=== PATIENT | male | born 1955 | race Caucasian/White ===

== ENCOUNTER 2023-01-16 09:20 | Outpatient (OUT) | payer MEDICARE, SELFPAY ==
--- NOTE | 2023-01-16 09:22 | ECG_ITS ---
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
[2023-01-16 10:12] LABS: Basophils Percent Auto 0.4 % (0.2-2.0); Eosinophils Absolute Auto 0.1 10^3/uL (0.0-0.7); Hematocrit 43.7 % (42.0-54.0); Hemoglobin 15.6 g/dL (14.0-18.0); Immature Granulocytes Abs Auto 0.02 10^3/uL (0.00-0.03); Immature Granulocytes Pct Auto 0.4 % (0.0-0.5); Lymphocytes Absolute Auto 1.1 10^3/uL (1.2-3.8); Mean Corpuscular HGB Conc 35.7 g/dL (29.9-35.2); Mean Corpuscular Hemoglobin 30.4 pg (25.9-34.0); Mean Corpuscular Volume 85.2 fL (80.0-94.0); Mean Platelet Volume 9.4 fL (9.5-13.5); Monocytes Absolute Auto 0.3 10^3/uL (0.3-0.8); Neutrophils Percent Auto 66.2 % (43.0-75.0); Platelet Count 204 10^3/uL (150-450); Red Blood Count 5.13 10^6/uL (4.70-6.10); Red Cell Distribution Width 12.9 % (11.0-15.0); White Blood Count 4.6 10^3/uL (4.0-11.0)
[2023-01-16 10:29] LABS: INR 0.99; Partial Thromboplastin Time 29.1 sec (22.3-36.2); Prothrombin Time 10.5 sec (9.0-11.6)
[2023-01-16 14:35] LABS: Calcium 9.3 mg/dL (8.5-10.1); Phosphorus 2.9 mg/dL (2.6-4.7); Thyroid Stimulating Hormone 0.958 uIU/mL (0.358-3.740)
== END 2023-01-16 09:21 | disposition home or self-care (01) ==
LOC: PST 09:20
PROVIDERS: Otolaryngology; PCP Family Medicine
DX: Z01.812 Encounter for preprocedural laboratory examination (principal); Z01.810 Encounter for preprocedural cardiovascular examination; E07.9 Disorder of thyroid, unspecified
CPT/HCPCS: 36415; 82310; 83735; 84100; 84443; 85025; 85610; 85730; 93005

== ENCOUNTER 2023-03-09 12:54 | Outpatient (OUT) | payer MEDICARE, SELFPAY | END 2023-03-09 12:55 | disposition home or self-care (01) | LOC: PST 12:54 | PROVIDERS: PCP Family Medicine; Visit Provider Otolaryngology | DX: Z01.818 Encounter for other preprocedural examination (principal); E07.9 Disorder of thyroid, unspecified ==

== ENCOUNTER 2023-03-10 08:39 | Day surgery (SDC) | payer MEDICARE, SELFPAY ==
[2023-01-16 09:26] VITALS: BP 127/76; PULSE 70; RESP 18; TEMP 36.4; O2SAT 96; BMI 30.1
[2023-03-10] VITALS (17 sets, daily range): BP systolic 102–156; BP diastolic 59–86; PULSE 75–108; RESP 1–24; TEMP 36.1–37.4; O2SAT 91–97; BMI 29.9
--- NOTE | 2023-03-10 | OP_ITS ---
OPERATION DATE: ??03/10/2023 PRIMARY CARE PHYSICIAN:? Abhishek Thomas M.D. SURGEON:? Raven Rand M.D. ELECTROCARDIOGRAM TECHNICIAN:? MANUELITO Rosenbaum PREOPERATIVE DIAGNOSIS:? Bilateral thyroid masses. POSTOPERATIVE DIAGNOSIS:? Bilateral thyroid masses. PROCEDURE:? Total thyroidectomy with recurrent laryngeal nerve monitoring.? ANESTHESIA:? General endotracheal. COMPLICATIONS:? None. FINDINGS:? A hard 5 cm left superior pole mass with extensive fibrosis to surrounding strap muscles and rubbery 3.5 cm right inferior pole mass. INDICATIONS:? This 67-year-old man presented with bilateral thyroid masses, including a large TR5 mass on the left hand side.? Fine needle aspiration of the masses on each side revealed atypia of undetermined significance.? Because of the very high risk of carcinoma on the left side, the patient was brought to the OR for thyroidectomy rather than further testing. PROCEDURE:? Patient identified in the holding area and taken back to the OR where he was placed in the supine position.? After induction of general endotracheal anesthesia, using a recurrent laryngeal nerve monitoring endotracheal tube, a 12 cm incision was mapped out two finger breadths above the sternal notch, following a natural skin crease.? A larger incision than usual was necessary due to the large size and somewhat lateral nature of his left sided mass.? Dissection was carried out through the platysma with electrocautery and subplatysmal flaps were raised superiorly to the thyroid notch and inferiorly to the clavicle.? A thyroid retractor was then put in position and the strap muscles were incised in the midline.? The strap muscles were then elevated off of the thyroid anteriorly, and attention turned to the thyroid isthmus.? The thyroid isthmus was transected in the midline with blunt dissection and harmonic scalpel, with multiple small veins extending inferiorly from the isthmus, being hemoclipped and transected with the harmonic scalpel.? Attention was first turned to the larger, left thyroid mass.? The gland was retracted medially and dissected off of the trachea with a harmonic scalpel.? Blunt dissection of the strap muscles was performed to initiate a subcapsular dissection of the gland.? However, because of the fibrosis of the muscles to the superior portion of the gland, as well as the large size of the patient?s left superior lobe, decision was made to transect the strap muscles in order to gain better lateral exposure.? This was and the superior and inferior strap muscles were tagged with a 3-0 Vicryl suture for lateral re-approximation.? Dissection continued superiorly and inferiorly, and eventually, with the fibrosis of the strap muscles to the gland, a typical subcapsular dissection of the superior lobe was clearly not possible.? Therefore, the inferior pole of the thyroid gland was dissected free of the underlying tissues, with positive identification of the recurrent laryngeal nerve.? A subcapsular dissection of the inferior pole of the gland was then continued superiorly with the recurrent laryngeal nerve under continuous observation.? The parathyroid glands were also identified and dissected free from the gland.? The parathyroid glands were not involved in the fibrotic superior portion of the gland.? Once the inferior and mid portion of the thyroid was freed, blunt dissection continued superiorly and the strap muscles were excised from the portion of the gland where they were both fibrotic.? The superior thyroid vessels were also identified and hemoclipped and transected.? Dissection was carried out anteriorly until the entirety of the land was freed from the trachea and it was removed. Both dissection and stimulation of the recurrent laryngeal nerve showed that the nerve was both anatomically and electrically intact.? The left thyroid was then sent for pathologic analysis.? Dissection was then performed to remove the right thyroid.? The right thyroid was grasped and more typical thyroidectomy dissection was performed, with subcapsular dissection of the superior pole of the thyroid being performed with transection and clipping of the superior thyroid vessels.? The superior parathyroid gland was identified and dissected free of the thyroid, and dissection continued inferiorly in a subcapsular fashion, with the inferior pole of the thyroid being freed and fibrovascular attachments being transected with the harmonic scalpel.? The gland was rotated medially.? The recurrent laryngeal nerve was identified in the tracheoesophageal groove.? The inferior parathyroid gland was identified and bluntly dissected away from the thyroid and preserved.? Then, with the recurrent laryngeal nerve under continuous observation, the gland was dissected free of the trachea.? Both dissection and stimulation of the right recurrent laryngeal nerve also revealed the nerve to be anatomically and electrically intact.? The wound was then copiously irrigated with normal saline containing Clindamycin, and the wound was explored to look for any bleeding vessels and none were found.? The left strap muscles were then re-approximated with the two 3-0 Vicryl sutures that had been previously placed.? A #7 round Murray-Sutton drain was then placed through a stab incision in the sternal notch.? The strap muscles were re-approximated in the midline, and the skin was closed with two deep interrupted 4-0 Vicryl sutures layers and a running 5-0 Monocryl subcuticular stitch.? A pressure dressing was then placed, and the patient was awakened and taken to the recovery room in good condition. YUNIOR
[2023-03-10] MEDS: LACTATED RINGER'S SOLUTION 1,000 ML 50 ML IV ×2 (09:01→14:00)
[2023-03-10] MEDS: AMPICILLIN SODIUM/SULBACTAM NA 3 GM in 0.9 % SODIUM CHLORIDE 100 ML IV (10:46)
[2023-03-10] MEDS: LIDOCAINE HCL 1%-EPINEPHRINE 1:100,000 10 ML MDV INJ (11:40)
[2023-03-10] MEDS: CLINDAMYCIN PHOSPHATE/D5W 600 MG/50 ML PIGGYBACK IRR (14:25)
[2023-03-10] MEDS: BACITRACIN OINTMENT 28.4 GM TUBE 1 APPLIC TOPICAL (15:12)
--- NOTE | 2023-03-10 15:52 | PC.NURSE ---
Upon arrival to PACU.. simple face mask was applied at 10 liters of oxygen. LMA was then removed and patient was also suctioned. Had gurgling in his throat.
[2023-03-10 18:35] LABS: Calcium 8.4 mg/dL (8.5-10.1)
[2023-03-10] MEDS: FAMOTIDINE 20 MG TABLET PO (20:02)
[2023-03-11 04:16] VITALS: BP 101/63; PULSE 94; RESP 16; TEMP 36.9; O2SAT 97
[2023-03-11 05:06] LABS: Calcium 8.2 mg/dL (8.5-10.1)
[2023-03-11 07:37] VITALS: O2SAT 97
[2023-03-11] MEDS: ASCORBIC ACID 500 MG TABLET 1000 MG PO (08:08)
[2023-03-11] MEDS: CHOLECALCIFEROL (VITAMIN D3) 25 MCG/1,000 UNITS TABLET PO (08:08)
[2023-03-11] MEDS: ZINC GLUCONATE 50 MG TABLET PO (08:09)
[2023-03-11] MEDS: MULTIVITAMIN TABLET 1 TAB PO (08:09)
[2023-03-11] MEDS: FAMOTIDINE 20 MG TABLET PO (08:09)
== END 2023-03-11 08:40 | disposition home or self-care (01) ==
LOC: SURGOUT 08:40 → MS 16:47
PROVIDERS: PCP Family Medicine; Visit Provider Otolaryngology
PROC: (CPT 60240; principal; 2023-03-10 09:40)
DX: C73 Malignant neoplasm of thyroid gland (principal); Z86.010 Personal history of colon polyps
CPT/HCPCS: 60240; 36415; 82310; 88307; 94761; 95865; 95940; J2704

== ENCOUNTER 2023-03-19 08:45 | Emergency (ER) | payer MEDICARE, SELFPAY ==
[2023-03-19] VITALS (57 sets, daily range): BP systolic 110–136; BP diastolic 56–81; PULSE 76–98; RESP 14–29; TEMP 36.8; O2SAT 93; BMI 29.6
--- NOTE | 2023-03-19 09:01 | US_ITS ---
The [address] [address] Patient Name: ELIZABETH RM MRN: [id number] date: 1955 Sex: M Assigned Patient Location: ER Current Patient Location: ER Accession/Order Number: [id number] Exam Date: 03/19/2023 09:15 Report Date: 03/19/2023 09:54 At the request of: KOJO FREITAS Procedure: US venous doppler LE RT EXAMINATION: US venous doppler LE RT HISTORY: right LE pain and swelling post-op COMPARISON: No relevant comparison available. FINDINGS: REGION: Right lower extremity THROMBI: Occlusive thrombus within posterior tibial vein, peroneal vein, popliteal vein and femoral vein. Nonocclusive thrombus within common femoral vein. COMPRESSIBILITY: Noncompressible segments. FLOW: Absent flow. OTHER: Patent superficial great saphenous vein. US/US venous doppler LE RT IMPRESSION: 1. Marked deep vein thrombus throughout right lower extremity. Patient is in the hospital and provider is being notified. Electronically authenticated by: KATARINA JENKINS Date: 03/19/2023 09:54
[2023-03-19 09:20] LABS: Basophils Percent Auto 0.4 % (0.2-2.0); Eosinophils Absolute Auto 0.1 10^3/uL (0.0-0.7); Eosinophils Percent Auto 1.3 % (0.9-7.0); Hematocrit 43.8 % (42.0-54.0); Hemoglobin 15.2 g/dL (14.0-18.0); Immature Granulocytes Pct Auto 1.1 % (0.0-0.5); Lymphocytes Absolute Auto 1.3 10^3/uL (1.2-3.8); Lymphocytes Percent Auto 13.6 % (20.5-60.0); Mean Corpuscular HGB Conc 34.7 g/dL (29.9-35.2); Mean Corpuscular Hemoglobin 30.4 pg (25.9-34.0); Mean Corpuscular Volume 87.6 fL (80.0-94.0); Mean Platelet Volume 9.2 fL (9.5-13.5); Monocytes Absolute Auto 0.7 10^3/uL (0.3-0.8); Monocytes Percent Auto 7.7 % (1.7-12.0); Neutrophils Absolute Auto 7.2 10^3/uL (1.4-6.5); Neutrophils Percent Auto 75.9 % (43.0-75.0); Platelet Count 193 10^3/uL (150-450); Red Cell Distribution Width 12.2 % (11.0-15.0); White Blood Count 9.5 10^3/uL (4.0-11.0)
[2023-03-19 09:32] LABS: Anion Gap 15.3; BUN Creatinine Ratio 22.6; Calcium 8.9 mg/dL (8.5-10.1); Carbon Dioxide 25.4 mmol/L (21.0-32.0); Chloride 102 mmol/L (98-107); Estimated GFR (African America >60 (>=60); Estimated GFR (Non-African Ame >60 (>=60); Glucose 178 mg/dL (74-106); Potassium 3.7 mmol/L (3.5-5.1); Sodium 139 mmol/L (136-145)
--- NOTE | 2023-03-19 09:40 | ED_ITS ---
HPI - General Adult General Chief complaint: Extremity Problem, Nontraumatic Stated complaint: PAIN IN R LEG/CALF-PT WANTS CHECKED FOR BLOOD CLOT Time Seen by Provider: 03/19/23 08:52 Source: patient Mode of arrival: walk-in Limitations: no limitations History of Present Illness HPI narrative: patient presents with right lower leg pain and swelling that began 3-4 days ago. He had thyroid surgery at [facility] last week and was discharged home. No prior history of DVT but he has had superficial thrombophlebitis in the past. The pain has slowly increased along with the swelling - he localizes the pain to the outside of the right lower leg posteriorly. No recent injury. He denies any chest pain or shortness of breath. Related Data Home Medications Medication Instructions Recorded Confirmed Testosterone Supplement 01/16/23 ascorbic acid (vitamin C) 1,000 mg 1 g PO DAILY 01/16/23 03/10/23 capsule cholecalciferol (vitamin D3) 25 1,000 unit PO DAILY 01/16/23 03/10/23 mcg (1,000 unit) capsule magnesium 250 mg tablet 250 mg PO DAILY 01/16/23 03/10/23 multivitamin (Daily Multi-Vitamin 1 tab PO DAILY 01/16/23 03/10/23 tablet) zinc 50 mg capsule 50 mg PO DAILY 01/16/23 03/10/23 Allergies Allergy/AdvReac Type Severity Reaction Status Date / Time shellfish derived Allergy throat Verified 03/19/23 08:57 swelling clindamycin AdvReac Mild Rash Verified 03/19/23 08:57 [facility] Medical History (Updated 03/19/23 @ 10:48 by Kojo Freitas) Surgical History (Updated 01/16/23 @ 09:30 by Aurea Mathis NP) Family History (Updated 01/16/23 @ 09:30 by Aurea Mathis NP) Other CHF (congestive heart failure) Family history of colon cancer Family history of diabetes mellitus Social History (Updated 01/16/23 @ 09:26 by Aurea Mathis NP) Within the past year, how often did you have a drink containing alcohol: never Score interpretation: A score less than 4 is consistent with normal alcohol consumption. Smoking status: Former smoker Non-prescribed substance use: denies use Previous occupational history: Retired Highest level of school completed/degree received: high school graduate Exam Narrative Exam Narrative: Nurses notes and vital signs reviewed and patient is not hypoxic. afebrile General: Well-appearing and in no apparent distress. Skin: Warm, dry, no pallor noted. No rash. Head: Normocephalic, atraumatic. Neck: Supple, non-tender. Eye: Pupils are equal, round and EOMI. No scleral icterus. Cardiovascular: Regular Rate and Rhythm without murmur, gallop or rub. Respiratory: No accessory muscle use or respiratory distress. Lungs are clear to auscultation, no wheezing, rales or rhonchi Musculoskeletal: normal ROM, RIGHT calf and popliteal tenderness, 1+ pitting lower extremity edema/swelling GI: Abdomen is soft, non-distended. Normal bowel sounds. No tenderness to palpation. No rebound, guarding, or rigidity noted. Neurological: A&O x4. No cranial nerve dysfunction observed. No truncal ataxia. Moves all extremities. Sensation intact. Psychiatric: Cooperative and interactive. Normal mood and affect. Constitutional Vital Signs, click to edit/add: Last Vital Signs Temp 98.2 F 03/19/23 08:51 Pulse 91 H 03/19/23 10:05 Resp 22 03/19/23 10:05 BP 126/74 03/19/23 10:05 Pulse Ox 93 L 03/19/23 08:51 O2 Del Method Room Air 03/19/23 08:51 Course Vital Signs Vital signs: Vital Signs Temperature 98.2 F 03/19/23 08:51 Pulse Rate 93 H 03/19/23 08:51 Respiratory Rate 18 03/19/23 08:51 Blood Pressure 136/80 03/19/23 08:51 Pulse Oximetry 93 L 03/19/23 08:51 Oxygen Delivery Method Room Air 03/19/23 08:51 Temperature 98.2 F 03/19/23 08:51 Pulse Rate 91 H 03/19/23 10:05 Respiratory Rate 22 03/19/23 10:05 Blood Pressure 126/74 03/19/23 10:05 Pulse Oximetry 93 L 03/19/23 08:51 Oxygen Delivery Method Room Air 03/19/23 08:51 Medical Decision Making MDM Narrative Medical decision making narrative: patient found to have an extensive deep venous thrombosis of the right lower extremity on venous ultrasound that extends to the right common femoral vein. I discussed the opportunity to be transferred to [facility] to see the vascular surgeon and her to have a procedure done in which they could flush out the clot in order to lower risk of post-thrombotic disease. We also discussed the need for anticoagulation. Peripheral IV was established and the patient was given heparin bolus and placed on heparin drip. he was placed on chassis engineer and arrangements were made in anticipation of transfer for procedure. Vascular surgeon at [facility] = Dr Gonzales. I spoke with him about the patient's case and he accepted the patient's transfer to their facility for admission and evaluation, possible procedure for the DVT. Patient is agreeable to transfer Lab Data Lab results reviewed: Yes I reviewed the patient's lab results Labs: Lab Results 03/19/23 Range/Units 09:10 WBC 9.5 (4.0-11.0) 10^3/uL RBC 5.00 (4.70-6.10) 10^6/uL Hgb 15.2 (14.0-18.0) g/dL Hct 43.8 (42.0-54.0) % MCV 87.6 (80.0-94.0) fL MCH 30.4 (25.9-34.0) pg MCHC 34.7 (29.9-35.2) g/dL RDW 12.2 (11.0-15.0) % Plt Count 193 (150-450) 10^3/uL MPV 9.2 L (9.5-13.5) fL Neut % (Auto) 75.9 H (43.0-75.0) % Lymph % (Auto) 13.6 L (20.5-60.0) % Kent % (Auto) 7.7 (1.7-12.0) % Eos % (Auto) 1.3 (0.9-7.0) % Baso % (Auto) 0.4 (0.2-2.0) % Neut # (Auto) 7.2 H (1.4-6.5) 10^3/uL Lymph # (Auto) 1.3 (1.2-3.8) 10^3/uL Kent # (Auto) 0.7 (0.3-0.8) 10^3/uL Eos # (Auto) 0.1 (0.0-0.7) 10^3/uL Baso # (Auto) 0.0 (0.0-0.1) 10^3/uL Abs Immat Gran (auto) 0.10 H (0.00-0.03) 10^3/uL Imm/Tot Granulo (auto) 1.1 H (0.0-0.5) % PT 10.6 (9.0-11.6) sec INR 1.00 APTT 30.1 (22.3-36.2) sec Sodium 139 (136-145) mmol/L Potassium 3.7 (3.5-5.1) mmol/L Chloride 102 (98-107) mmol/L Carbon Dioxide 25.4 (21.0-32.0) mmol/L Anion Gap 15.3 BUN 24.0 H (7.0-18.0) mg/dL Creatinine 1.06 (0.70-1.30) mg/dL Est GFR ( Amer) >60 (>=60) Est GFR (Non-Af Amer) >60 (>=60) BUN/Creatinine Ratio 22.6 Glucose 178 H (74-106) mg/dL Calcium 8.9 (8.5-10.1) mg/dL Imaging Data us right LE: Radiologist's impression: Patient Name: ELIZABETH RM MRN: [id number] date: 1955 Sex: M Assigned Patient Location: Current Patient Location: Accession/Order Number: [id number] Exam Date: 03/19/2023 09:15 Report Date: 03/19/2023 09:54 At the request of: KOJO FREITAS Procedure: US venous doppler LE RT EXAMINATION: US venous doppler LE RT HISTORY: right LE pain and swelling post-op COMPARISON: No relevant comparison available. FINDINGS: REGION: Right lower extremity THROMBI: Occlusive thrombus within posterior tibial vein, peroneal vein, popliteal vein and femoral vein. Nonocclusive thrombus within common femoral vein. COMPRESSIBILITY: Noncompressible segments. FLOW: Absent flow. OTHER: Patent superficial great saphenous vein. IMPRESSION: 1. Marked deep vein thrombus throughout right lower extremity. Patient is in the hospital and provider is being notified. Electronically authenticated by: KATARINA JENKINS Date: 03/19/2023 09:54 Discharge Plan Discharge Chief Complaint: Extremity Problem, Nontraumatic Clinical Impression: Deep vein thrombosis of lower extremity Patient Disposition: [facility] Time of Disposition Decision: 09:47 Discharge Location: [facility] Prescriptions / Home Meds: No Action multivitamin [Daily Multi-Vitamin] Tablet 1 tab PO DAILY Hold Instructions: Doctor's Order ascorbic acid (vitamin C) 1,000 mg capsule 1 g PO DAILY Hold Instructions: Doctor's Order cholecalciferol (vitamin D3) 25 mcg (1,000 unit) capsule 1,000 unit PO DAILY Hold Instructions: Doctor's Order magnesium 250 mg tablet 250 mg PO DAILY Hold Instructions: Doctor's Order zinc 50 mg capsule 50 mg PO DAILY Hold Instructions: Doctor's Order Testosterone Supplement Hold Instructions: Doctor's Order Referrals: Abhishek Thomas MD [Primary Care Provider] - 1 week
[2023-03-19 09:41] LABS: Partial Thromboplastin Time 30.1 sec (22.3-36.2); Prothrombin Time 10.6 sec (9.0-11.6)
[2023-03-19] MEDS: HEPARIN SODIUM (PORCINE) 5,000 UNIT/ML VIAL 5600 UNIT IV (09:57)
[2023-03-19] MEDS: HEPARIN SODIUM,PORCINE/D5W 25,000 UNIT/500 ML IV.SOLN 25.2 UNIT IV (09:59)
== END 2023-03-19 16:00 | disposition short-term general hospital (02) ==
PROVIDERS: Emergency Provider Emergency Medicine; PCP Family Medicine
DX: I82.442 Acute embolism and thrombosis of left tibial vein (principal); I82.452 Acute embolism and thrombosis of left peroneal vein; I82.432 Acute embolism and thrombosis of left popliteal vein; I82.412 Acute embolism and thrombosis of left femoral vein; Z79.899 Other long term (current) drug therapy; Z87.891 Personal history of nicotine dependence
CPT/HCPCS: 36415; 80048; 85025; 85610; 85730; 93971; 96374; 99285

== ENCOUNTER 2023-04-30 08:56 | Outpatient (OUT) | payer MEDICARE, SELFPAY ==
--- NOTE | 2023-04-30 09:12 | XR_ITS ---
[address] [address] Patient Name: ELIZABETH RM MRN: [id number] date: 1955 Sex: M Assigned Patient Location: [facility] Current Patient Location: Accession/Order Number: [id number] Exam Date: 04/30/2023 09:08 Report Date: 05/01/2023 07:28 At the request of: GAEL JOSHUA Procedure: XR soft tissue neck EXAMINATION: XR soft tissue neck HISTORY: Hypoxia R09.02 COMPARISON: No relevant comparison available. FINDINGS: EPIGLOTTIS: Normal RYEPIGLOTTIC FOLDS: Normal SUBGLOTTIC AIRWAY: Normal ADENOID TONSILS: Normal PALATINE TONSILS: Normal CERVICAL SPINE: Mild degenerative changes XR/XR soft tissue neck IMPRESSION: Patent airway Electronically authenticated by: DIAAN HERNANDEZ Date: 05/01/2023 07:28
== END 2023-04-30 08:57 | disposition home or self-care (01) ==
LOC: RAD 08:57
PROVIDERS: PCP Family Medicine; Visit Provider Family Medicine
DX: R09.02 Hypoxemia (principal)
CPT/HCPCS: 70360

== ENCOUNTER 2023-05-06 18:44 | Outpatient (OUT) | payer MEDICARE, SELFPAY ==
--- NOTE | 2023-05-06 | US_ITS ---
The [address] [address] Patient Name: ELIZABETH RM MRN: [id number] date: 1955 Sex: M Assigned Patient Location: US Current Patient Location: Accession/Order Number: [id number] Exam Date: 05/06/2023 19:07 Report Date: 05/07/2023 07:38 At the request of: GAEL JOSHUA Procedure: US soft tissue head and neck EXAMINATION: US soft tissue head and neck HISTORY: HYPOXIA R09.02 ; coughing since thyroidectomy February 2023 COMPARISON: Ultrasound thyroid 10/30/2022 FINDINGS: RIGHT LOBE: Small area of hypoechoic slightly vascular tissue within the right thyroid bed 8 x 6 x 5 mm. Lobe size: Prior thyroidectomy. LEFT LOBE: No appreciable residual tissue within the thyroid bed. Lobe size: Prior thyroidectomy. ISTHMUS: No appreciable thyroid tissue. Thickness: Prior thyroidectomy. US/US soft tissue head and neck IMPRESSION: 1. Small amount of soft tissue within right thyroid bed resembling residual thyroid tissue. Follow-up in 6 months is recommended to document stability. Electronically authenticated by: KATARINA JENKINS Date: 05/07/2023 07:38
== END 2023-05-06 18:45 | disposition home or self-care (01) ==
PROVIDERS: PCP Family Medicine; Visit Provider Family Medicine
DX: R09.02 Hypoxemia (principal)
CPT/HCPCS: 76536

== ENCOUNTER 2023-07-03 14:20 | Outpatient (OUT) | payer MEDICARE, SELFPAY ==
--- NOTE | 2023-07-03 14:53 | PM.PRESUREVA ---
History of Present Illness History of Present Illness Chief complaint: True Vocal Cord Mass Narrative: Patient resents for preadmission testing. Please see HPI from Dr. Rand dated 07/01/2023. Review of Systems ROS Narrative Please see ROS from Dr. Rand dated 07/01/2023. 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) DVT (deep venous thrombosis) (03/26/23) ?I82.409 - Acute embolism and thrombosis of unspecified deep veins of unspecified lower extremity (ICD-10) Polyp of colon ?K63.5 - Polyp of colon (ICD-10) COVID-19 ?U07.1 - COVID-19 (ICD-10) GERD (gastroesophageal reflux disease) ?K21.9 - Gastro-esophageal reflux disease without esophagitis (ICD-10) Thyroid mass ?E07.9 - Disorder of thyroid, unspecified (ICD-10) Surgical History (Updated 07/03/23 @ 14:42 by Aurea Mathis NP) H/O thyroidectomy (03/10/23) ?E89.0 - Postprocedural hypothyroidism (ICD-10) History of colonoscopy ?Z98.890 - Other specified postprocedural states (ICD-10) Family History (Updated 01/16/23 @ 09:30 by Aurea Mathis NP) Other CHF (congestive heart failure) Family history of colon cancer Family history of diabetes mellitus Social History (Updated 01/16/23 @ 09:26 by Aurea Mathis NP) Within the past year, how often did you have a drink containing alcohol: never Score interpretation: A score less than 4 is consistent with normal alcohol consumption. Smoking status: Former smoker Non-prescribed substance use: denies use Previous occupational history: Retired Highest level of school completed/degree received: high school graduate Meds Home Medications and Allergies Home Medications Medication Instructions Recorded Confirmed Type Testosterone Supplement 01/16/23 History ascorbic acid (vitamin C) 1,000 mg 1 g PO DAILY 01/16/23 07/03/23 History capsule cholecalciferol (vitamin D3) 25 1,000 unit PO DAILY 01/16/23 07/03/23 History mcg (1,000 unit) capsule magnesium 250 mg tablet 250 mg PO DAILY 01/16/23 07/03/23 History multivitamin (Daily Multi-Vitamin 1 tab PO DAILY 01/16/23 07/03/23 History tablet) zinc 50 mg capsule 15 mg PO DAILY 01/16/23 07/03/23 History apixaban 5 mg tablet (Eliquis) 5 mg PO BID 07/03/23 07/03/23 History calcium 600 mg capsule mg PO 07/03/23 History levothyroxine 125 mcg tablet 125 mcg PO DAILY 07/03/23 07/03/23 History liothyronine 25 mcg tablet 25 mcg PO DAILY 07/03/23 07/03/23 History Allergies Allergy/AdvReac Type Severity Reaction Status Date / Time shellfish derived Allergy throat Verified 03/19/23 08:57 swelling clindamycin AdvReac Mild Rash Verified 03/19/23 08:57 Exam Narrative Exam Narrative: Constitutional: Awake, alert, comfortable, well-appearing, nontoxic, interactive, vital signs as charted Head: Normocephalic, atraumatic Neck: Supple, normal appearance, normal range of motion, no meningeal signs, no lymphadenopathy Respiratory: No respiratory distress, breath sounds clear Cardiovascular: Regular rate and rhythm, strong and regular heart tones Musculoskeletal: Normal gait, no swelling or edema Skin: No rashes or induration, no lesions, only visible skin inspected Neuro: No neurological deficits, normal sensation Psychiatric: Oriented ?3, normal affect Assessment and Plan Assessment and Plan (1) Vocal cord mass: Plan Microlaryngoscopy with removal of true vocal cord mass scheduled with Dr. Rand 07/07/2023.
[2023-07-03 14:57] LABS: Basophils Percent Auto 0.6 % (0.2-2.0); Eosinophils Absolute Auto 0.1 10^3/uL (0.0-0.7); Hematocrit 45.3 % (42.0-54.0); Hemoglobin 15.7 g/dL (14.0-18.0); Immature Granulocytes Abs Auto 0.01 10^3/uL (0.00-0.03); Immature Granulocytes Pct Auto 0.2 % (0.0-0.5); Lymphocytes Absolute Auto 1.2 10^3/uL (1.2-3.8); Lymphocytes Percent Auto 22.7 % (20.5-60.0); Mean Corpuscular HGB Conc 34.7 g/dL (29.9-35.2); Mean Corpuscular Hemoglobin 29.6 pg (25.9-34.0); Mean Corpuscular Volume 85.5 fL (80.0-94.0); Mean Platelet Volume 9.4 fL (9.5-13.5); Monocytes Absolute Auto 0.5 10^3/uL (0.3-0.8); Monocytes Percent Auto 10.1 % (1.7-12.0); Neutrophils Absolute Auto 3.5 10^3/uL (1.4-6.5); Neutrophils Percent Auto 64.4 % (43.0-75.0); Platelet Count 186 10^3/uL (150-450); Red Cell Distribution Width 13.4 % (11.0-15.0); White Blood Count 5.4 10^3/uL (4.0-11.0)
[2023-07-03 15:05] LABS: Anion Gap 14.4; BUN Creatinine Ratio 14.1; Carbon Dioxide 25.7 mmol/L (21.0-32.0); Chloride 103 mmol/L (98-107); Estimated GFR (African America >60 (>=60); Estimated GFR (Non-African Ame 50 (>=60); Glucose 108 mg/dL (74-106); Potassium 4.1 mmol/L (3.5-5.1); Sodium 139 mmol/L (136-145)
[2023-07-03 16:17] LABS: INR 1.01; Prothrombin Time 10.7 sec (9.0-11.6)
== END 2023-07-03 14:21 | disposition home or self-care (01) ==
PROVIDERS: PCP Family Medicine; Visit Provider Otolaryngology
DX: Z01.812 Encounter for preprocedural laboratory examination (principal); J38.3 Other diseases of vocal cords
CPT/HCPCS: 80048; 85025; 85610; 85730; G0463

== ENCOUNTER 2023-07-07 09:07 | Day surgery (SDC) | payer MEDICARE, SELFPAY ==
[2023-07-03 14:51] VITALS: BP 123/73; PULSE 72; RESP 16; TEMP 36.3; O2SAT 98; BMI 30.3
[2023-07-07] VITALS (12 sets, daily range): BP systolic 123–153; BP diastolic 67–84; PULSE 65–97; RESP 5–25; TEMP 36.4; O2SAT 95–100; BMI 30.1
--- NOTE | 2023-07-07 | OP_ITS ---
OPERATION DATE: 07/07/2023 PRIMARY CARE PHYSICIAN: Abhishek hTomas M.D. SURGEON: Raven Rand M.D. PREOPERATIVE DIAGNOSIS: Laryngeal mass. POSTOPERATIVE DIAGNOSIS: Laryngeal mass. PROCEDURE: Microlaryngoscopy and removal of laryngeal mass. ANESTHESIA: General endotracheal. COMPLICATIONS: None. FINDINGS: A 1 cm pedunculated mass attached at the left vocalis process. 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 The mass did not improve with conservative medical therapy, and the patient was brought to the OR for excision. PROCEDURE: Patient identified in the holding area and taken back to the OR where he was placed in a supine position. After induction of general endotracheal anesthesia, the table was turned, the shoulder roll placed and a tooth guard put in position. An anterior commissure laryngoscope was passed along the right side of the tongue and the endolarynx wax exposed. The tube was suspended and under direct endoscopic guidance, a cup forcep was used to remove the mass at its stalk, where it was attached to the vocalis process. There was self-limited bleeding and the patient was awakened and taken to the recovery room in good condition. YUNIOR
[2023-07-07] MEDS: LACTATED RINGER'S SOLUTION 1,000 ML 50 ML IV (09:51)
[2023-07-07] MEDS: RACEPINEPHRINE HCL 11.25 MG, SODIUM CHLORIDE FOR INHALATION 3 ML IH (12:20)
--- NOTE | 2023-07-07 12:30 | RESP.RT ---
Inspiratory stridor post surgery
== END 2023-07-07 13:06 | disposition home or self-care (01) ==
PROVIDERS: PCP Family Medicine; Visit Provider Otolaryngology
PROC: (CPT 31541; principal; 2023-07-07 10:20)
DX: J38.1 Polyp of vocal cord and larynx (principal); J38.3 Other diseases of vocal cords; Z79.01 Long term (current) use of anticoagulants; Z86.718 Personal history of other venous thrombosis and embolism; Z86.010 Personal history of colon polyps; Z86.16 Personal history of COVID-19; K21.9 Gastro-esophageal reflux disease without esophagitis; E89.0 Postprocedural hypothyroidism; Z87.891 Personal history of nicotine dependence
CPT/HCPCS: 31541; 36415; 88305; 94640; J2704

== ENCOUNTER 2023-07-08 16:21 | Outpatient (OUT) | payer MEDICARE, SELFPAY ==
[2023-07-08 16:48] LABS: Anion Gap 12.6; BUN Creatinine Ratio 18.7; Calcium 8.8 mg/dL (8.5-10.1); Carbon Dioxide 30.2 mmol/L (21.0-32.0); Chloride 107 mmol/L (98-107); Estimated GFR (African America >60 (>=60); Estimated GFR (Non-African Ame 59 (>=60); Glucose 135 mg/dL (74-106); Potassium 3.8 mmol/L (3.5-5.1); Sodium 146 mmol/L (136-145)
== END 2023-07-08 16:22 | disposition home or self-care (01) ==
LOC: LAB 16:22
PROVIDERS: PCP Family Medicine; Visit Provider Family Medicine
DX: N28.9 Disorder of kidney and ureter, unspecified (principal)
CPT/HCPCS: 36415; 80048

== ENCOUNTER 2023-09-08 06:41 | Outpatient (OUT) | payer MEDICARE, SELFPAY ==
--- OUTSIDE RECORDS SUMMARY | 2023-09-07 09:05 | XMS_ITS | CCD ---
Author Name Unknown Address [address] [place] [address] Organization [facility] Care Team Providers Care Irish Moss Operator Name Role Phone Gael Thomas Primary Care Physician [phone] JOS[address] ., DR MAYO Admitting Unavailable HOY ., DR MAYO Attending Unavailable HOY ., DR MAYO Primary Care Unavailable HOY ., DR MAYO Consulting Unavailable HOY ., DR MAYO Admitting Unavailable HOY ., DR MAYO Attending Unavailable HOY ., DR MAYO Primary Care Unavailable HOY ., DR MAYO Consulting Unavailable Manuelito Gu Consulting Unavailable NILL ., DR MCDANIEL Admitting Unavailable NILL ., DR MCDANIEL Attending Unavailable HOY ., DR MAYO Primary Care Unavailable NILL ., DR MCDANIEL Consulting Unavailable KARENA, REGAN Consulting Unavailable OLIVER, TOAN Consulting Unavailable HOY ., DR MAYO Admitting Unavailable HOY ., DR MAYO Attending Unavailable HOY ., DR MAYO Primary Care Unavailable HOY ., DR MAYO Consulting Unavailable [place], DR DIANA Gonsalez Consulting Unavailable HOY ., DR MAYO Admitting Unavailable HOY ., DR MAYO Attending Unavailable HOY ., DR MAYO Primary Care Unavailable HOY ., DR MAYO Consulting Unavailable NILL, Violeta R Attending Unavailable NILL, Violeta R Attending Unavailable HoyGael Referring Unavailable NILL, Violeta R Attending Unavailable NILL, Violeta R Referring Unavailable NILL, Violeta Albert Attending Unavailable Hoy Gael CHIN Primary Care Provider [phone] Modesto Guzmán Unavailable MD Modesto Guzmán Attending Provider MD Gael Thomas Primary Care Provider [phone] MD Modesto Guzmán Attending Provider [phone] MD Gael Thomas Primary Care Provider [phone] MD Temo Guillermo Attending Provider Asaad, Imad Admitting Unavailable Hoy, Gael M Primary Care Unavailable Ramirez, Imad Attending Unavailable Temo Guillermo Attending Unavailable Temo Guillermo Admitting Unavailable Hoy, Gael M Primary Care Unavailable TIMMIS, JOEY H Attending Unavailable TIMMIS, JOEY H Attending Unavailable TIMMIS, JOEY H Attending Unavailable HOY, GAEL M Primary Care Unavailable Azam GUILLERMO Referring Unavailable HOY, GAEL M Primary Care Unavailable IVONEMISJOEY Referring Unavaila ble HOY, GAEL M Primary Care Unavailable Azam GUILLERMO Attending Unavailable HOY, GAEL M Primary Care Unavailable Azam GUILLERMO Attending Unavailable HOY, GAEL M Primary Care Unavailable HOY, GAEL M Primary Care Unavailable Azam GUILLERMO Attending Unavailable HOY, GAEL M Primary Care Unavailable Azam GUILLERMO Attending Unavailable HOY, GAEL M Primary Care Unavailable HOY, GAEL M Primary Care Unavailable Azam GUILLERMO Referring Unavailable [place] Referring Unavailable NAZZAL, MUNCHIN Referring Unavailable NAZZAL, MUNIER Referring Unavailable ANNALISE MCCRAY Referring Unavailable LISS JI Attending Unavailable NAZZAL, MUNIER Attending Unavailable KOJO FREITAS Referring Unavailable NAZZAL, MUNIER Admitting Unavailable BRIAN MANZO Attending Unavailable LISS JI Referring Unavailable Allergies Allergy Classification Reported Allergen(s) Allergy Type Date of Onset Reaction(s) Facility (1 source) No Known Medication Allergies; Translations: [No Known Medication Allergies] Propensity to adverse reactions (disorder) [facility] Repository (17 sources) Clindamycin; Translations: [CLINDAMYCIN] Drug Allergy 3 [facility] (1 source) Clindamycin Drug Allergy 3 [facility] Repository (1 source) Shellfish; Translations: [SHELLFISH DERIVED] Propensity to adverse reactions to drug (disorder) 3 [facility] Repository Medications Current Medications Medication Drug Class(es) Dates Sig (Normalized) Sig (Original) Ascorbic Acid (1 source) Vitamin C Vitamin C Active cefuroxime 500 mg oral tablet (1 source) Cephalosporin Antibacterial take 1 tablet by mouth every twelve hours Cefuroxime Axetil 500 MG 1 tablet Orally Twice a day for 10 day(s) Active levothyroxine sodium 0.125 mg oral tablet (17 sources) l-Thyroxine Start: 08-31-2023 take 1 tablet by mouth once daily levothyroxine (SYNTHROID) 125 mcg tablet take 1 tablet by mouth once daily 90 tablet 2 08/31/2023 Active Start: 04-01-2023 End: 08-31-2023 take 1 tablet by mouth once daily levothyroxine (SYNTHROID) 125 mcg tablet Take 1 tablet by mouth once daily. Start 06/04/23 30 tablet 2 05/08/2023 08/31/2023 Discontinued Comment on above: Take 1 tablet by mireya th once daily. Start 06/04/23 take 1 tablet by mireya th once daily Magnesium (1 source) take 1 tablet by mouth once daily Magnesium 250 MG 1 tablet with a meal Orally Once a day Active Multi For Him 50+ (1 source) Multi For Him 50 + Active Multi Vitamins oral tablet (1 source) Start: 3 take 1 tablet by mouth once daily Multi Vitamins oral tablet 1 tab(s), Oral, Daily, Refill(s) 0 Start Date: 10/22/22 Status: Ordered mupirocin 0.02 mg/mg topical ointment (1 source) RNA Synthetase Inhibitor Antibacterial Start: 0 Mupirocin 2 % 1 application to affected area Externally once per day for 7 days May, Active naproxen sodium 550 mg oral tablet (1 source) Nonsteroidal Anti-inflammatory Drug take 1 tablet by mouth every twelve hours Anaprox DS 550 MG 1 tablet Orally Twice a day for 10 days Active polyethylene glycol 3350 [id number] mg / potassium chloride 2970 mg / sodium bicarbonate 6740 mg / sodium chloride 5860 mg / sodium sulfate 80639 mg powder for oral solution (1 source) Osmotic Laxative Start: 3 PEG-3350/Electrolyt es 236 GM as directed Orally once daily for 1 days Dec, Active Vitamin D3 (1 source) Vitamin D3 Activ e Zinc (1 source) Zinc 15 Active Completed/Discontinued Medications Medication Drug Class(es) Dates Sig (Normalized) Sig (Original) apixaban 5 mg oral tablet (15 sources) Factor Xa Inhibitor Start: 03-20-2023 take 1 tablet by mouth every twelve hours apixaban (ELIQUIS) 5 mg tab(s) Take 5 mg by mouth every 12 hours. 0 03/20/2023 Active Start: 03-20-2023 End: 07-04-2023 apixaban (ELIQUIS) 5 mg tab( s) Take 5 mg by mouth. 0 03/20/2023 07/04/2023 Active Comment on above: Take 5 mg by mouth. Take 5 mg by mouth e very 12 hours. cefTRIAXone (1 source) Cephalosporin Antibacterial Start: Rocephin 500 mg May, 500 mg famotidine 20 mg oral tablet (5 sources) Histamine-2 Receptor Antagonist Start: End: take 1 tablet by mouth once daily at bedtime famotidine (PEPCID) 20 mg tablet Take 1 tablet by mouth daily at bedtime. 0 08/17/2023 Active Comment on above: Take 20 mg by mouth. Take 1 tablet by mireya th daily at bedtime. liothyronine sodium 0.025 mg oral tablet (12 sources) l-Triiodothyronine End: liothyronine (CYTOMEL) 25 mcg tablet Comment on above: 1 tablet on an empty stomach Orally BID omeprazole 40 mg delayed release oral capsule (5 sources) Proton Pump Inhibitor Start: End: omeprazole (PRILOSEC) 40 mg capsule Take 40 mg by mouth. 0 05/25/2023 Active Comment on above: Take 40 mg by mouth. pilocarpine hydrochloride 5 mg oral tablet (12 sources) Cholinergic Receptor Agonist Start: End: take 1 tablet by mouth three times daily pilocarpine (SALAGEN, PILOCARPINE,) 5 mg tablet Take 1 tablet by mouth three times daily. 15 tablet 0 04/01/2023 08/27/2023 Discontinued (Discontinued by another Health Care Provider) Comment on above: Take 1 tablet by mireya th three times daily. prochlorperazine 10 mg oral tablet (12 sources) Phenothiazine Start: End: take 1 tablet by mouth every eight hours as needed prochlorperazine (COMPAZINE) 10 mg tablet Take 1 tablet by mouth every 8 hours as needed. 15 tablet 1 04/01/2023 08/27/2023 Discontinued (Discontinued by another Health Care Provider) Comment on above: Take 1 tablet by mireya th every 8 hours as needed. Problems Active Problems Problem Classification Problem Date Documented Da te Episodic/Chronic Cancer of thyroid (20 sources) Malignant tumor of thyroid gland; Translations: [Malignant neoplasm of thyroid gland] Onset: 04-02-2023 04-01-2023 Chronic Disorders of lipid metabolism (2 sources) Hyperlipidemia; Translations: [Hyperlipidemia, unspecified] Onset: 11-10-2022 10-10-2022 Chronic Diverticulosis and diverticulitis (1 source) Diverticulosis of large intestine without perforation or abscess without bleeding; Translations: [DVRTCLOS LG INT NO PERF/ABSC W/O BL] Onset: 11-10-2022 Chronic Essential hypertension (2 sources) Essential hypertension; Translations: [Essential (primary) hypertension] Onset: 02-25-2022 10-10-2022 Chronic Other and unspecified benign neoplasm (1 source) Polyp of colon; Translations: [POLYP OF COLON] Onset: 11-10-2022 Episodic Other and unspecified benign neoplasm (1 source) Benign neoplasm of ascending colon; Translations: [BENIGN NEOPLASM OF ASCENDING COLON] Onset: 11-10-2022 Episodic Other and unspecified benign neoplasm (1 source) History of polyp of colon; Translations: [Personal history of colonic polyps] Episodic Other nutritional; endocrine; and metabolic disorders (1 source) Body mass index 30+ - obesity 10-22-2022 Chronic Other screening for suspected conditions (not mental disorders or infectious disease) (10 sources) Screening for malignant neoplasm of colon done; Translations: [Encounter for screening for malignant neoplasm of colon] Onset: 02-25-2022 Episodic Other skin disorders (4 sources) Localized swelling, mass and lump, neck; Translations: [LOCALIZED SWELLING MASS AND LUMP NECK] Onset: 10-30-2022 Episodic Phlebitis; thrombophlebitis and thromboembolism (2 sources) 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; Translations: [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] Onset: 05-22-2023 Chronic Phlebitis; thrombophlebitis and thromboembolism (4 sources) Personal history of other venous thrombosis and embolism; Translations: [Acute embolism and thrombosis of unspecified deep veins of right proximal lower extremity] Onset: 03-19-2023 Episodic Residual codes; unclassified (1 source) Family history of malignant neoplasm of digestive organ; Translations: [Family history of malignant neoplasm of digestive organs] Onset: 10-22-2022 Episodic Residual codes; unclassified (1 source) Family history of cancer of colon 10-10-2022 Episodic Residual codes; unclassified (1 source) Family history of malignant neoplasm of digestive organs; Translations: [FAM HX MALIG NEOPLASM DIGESTIV ORGN] Onset: 11-10-2022 Episodic Screening and history of mental health and substance abuse codes (1 source) Personal history of nicotine dependence; Translations: [PERSONAL HISTORY OF NICOTINE DEPEND] Onset: 11-10-2022 Episodic Thyroid disorders (5 sources) Nontoxic single thyroid nodule; Translations: [NONTOXIC SINGLE THYROID NODULE] Onset: 11-08-2022 Chronic Unclassified (1 source) Patient encounter status 10-22-2022 Unclassified (1 source) Encounter for screening for malignant neoplasm of colon; Translations: [Encounter for screening for malignant neoplasm of colon] Onset: 04-28-2023 Past or Other Problems Problem Classification Problem Date Documented Da te Episodic/Chronic Diabetes mellitus without complication (1 source) Other abnormal glucose; Translations: [OTHER ABNORMAL GLUCOSE] Onset: 02-25-2022 Episodic Residual codes; unclassified (1 source) Family history of epilepsy and other diseases of the nervous system; Translations: [FAM HX EPILEPSY OTH DZ NERV SYS] Onset: 02-25-2022 Episodic Results Test Name Value Interpretation Reference Range Facility Follow-Upon 09-04-2023 Follow-Up [id number] Arvind Rm 1955 M Date Provider Department Center 09/04/2023 BRIAN TREVINO HVCVASEMARÍA ELE[facility] No family history on file Level of Service:26665 OR OFFICE/OUTPATIENT ESTABLISHED LOW MDM 20 MIN Normal [facility] CNOVon 08-27-2023 CNOV Office Visit (RADTSA ) ARVIND RM ([id number]) 1955 Date Time Provider Department 08/27/23 10:00 AM Azam GUILLERMO During your visit today, we recorded the following information about you: Temperature Pulse Respiration Blood pressure 97.5 degrees 70/minute 16/minute 139/80 Weight 86.4 kg Azam Guillermo MD 08/27/2023 10:49 AM Signed Radiation Oncology -follow-up note PATIENT NAME: Arvind Rm PATIENT : 1955 Primary Site: Thyroid Date of Diagnosis: March 10, 2023 Clinical Stage: T2 N0 M0 Pathologic Stage: T2 N0 M0 DIAGNOSIS: Thyroid cancer, 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 HPI: Patient is doing well. Energy level good. Denies any palpitations feeling of jitteriness chest pain or other issues. No dysphagia. RADIOLOGY: Post I-131 whole-body scan 06/10/2023: Uptake within an area of thyroid bed only. No suspected metastatic disease. LABORATORY: Latest Reference Range AND Units 04/01/23 13:58 06/03/23 10:39 08/18/23 09:27 Thyroglobulin Ab, Serum <4.0 IU/mL <0.9 Thyroglobulin, Serum 1.6 - 50.0 ng/mL 2.8 Thyroglobulin, LC-MS/MS 1.3 - 31.8 ng/mL 1.7 T4 5.5 - 10.2 ug/dL 7.1 TSH 0.270 - 4.200 mIU/L 0.535 FOCUSED ROS: Dysphagia: No Mucositis: No Voice Changes:Yes improved/no lymph resolved Fatigue: No Nausea: No Vomitting: No Pain: No Taste: No Weight loss: No ALLERGIES Allergen Reactions Clindamycin Rash MEDICATIONS: apixaban (ELIQUIS) 5 mg tab(s) Take 5 mg by mouth every 12 hours. famotidine (PEPCID) 20 mg tablet Take 1 tablet by mouth daily at bedtime. omeprazole (PRILOSEC) 40 mg capsule Take 40 mg by mouth. levothyroxine (SYNTHROID) 125 mcg tablet Take 1 tablet by mouth once daily. Start 06/04/23 liothyronine (CYTOMEL) 25 mcg tablet pilocarpine (SALAGEN, PILOCARPINE,) 5 mg tablet Take 1 tablet by mouth three times daily. prochlorperazine (COMPAZINE) 10 mg tablet Take 1 tablet by mouth every 8 hours as needed. PAST MEDICAL HISTORY Diagnosis Date DVT (deep venous thrombosis) (HCC) RLE Prior radiation therapy, collagen vascular disease, or inflammatory bowel disease: No PAST SURGICAL HISTORY Procedure Laterality Date THYROIDECTOMY FAMILY HISTORY Problem Relation Age of Onset Cancer Father Colon Cancer Sister Social History Tobacco Use Smoking status: Former Packs/day: 0.50 Years: 5.00 Additional pack years: 0.00 Total pack years: 2.50 Types: Cigarettes Quit date: 1982 Years since quittin.1 Smokeless tobacco: Never Substance Use Topics Alcohol use: Not Currently Drug use: Not Currently COMPLETE REVIEW OF SYSTEMS: GENERAL: feeling well without fatigue, no recent change in weight HEENT: denies TRUONG, change in hearing or vision, no other ENT complaints NECK: See HPI RESPIRATORY: no cough, no wheezing or shortness of breath CARDIOVASCULAR: no chest pain, no palpitations SKIN: no rash NEURO: no numbness or paresthesias and no weakness of the extremities As noted in HPI PHYSICAL EXAM: VS: BP 139/80 Pulse 70 Temp 36.4 ?C (97.5 ?F) Resp 16 Wt 86.4 kg (190 lb 7.6 oz) SpO2 98% BMI 31.22 kg/m? KPS: 100 General Appearance: Alert and oriented. No acute distress. Neck: Normal ROM. No palpable cervical or supraclavicular adenopathy. Skin: No rashes noted Lymphatics: No palpable lymphadenopathy. Hematologic: No signs of active bleeding. 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 Doing well. On appropriate Synthroid replacement. Continue current dose recheck levels with thyroglobulin in 3 months. Signed by: Azam Guillermo MD cc: Gael Thomas [address] [place] [phone] Joey Rand MD [address] [facility] [address] [facility] [id number] Allergies As of Date: 08/27/2023 Noted Allergy Reaction CLINDAMYCIN 04/01/2023 2 - Rash Date Reviewed: 08/27/2023 Reviewed by: Sherie Reich LPN - Fully Assessed Reason for Visit: Thyroid Cancer [879] Primary Visit Diagnosis:Thyroid cancer (HCC) [C73] Order(s):TSH BLD [SQTSH] Order #: [id number] FUTURE T4/THYROXINE BLOOD [SQT4] Order #: [id number] FUTURE THYROGLOBULIN BY LC-MS/MS, SERUM OR PLASMA, FOR THYROGLOBULIN ANTIBODY INTERFERENCE [SQTGMSMS] Order #: [id number] FUTURE Prescriptions as of 08/27/2023 - apixaban (ELIQUIS) 5 mg tab(s) Take 5 mg by mouth every 12 hours. - famotidine ( (more content not included)... Normal [facility] T4 SerPl-mCncon 08-18-2023 T4 [Mass/Vol] 7.1 ug/dL Normal 5.5-10.2 [facility] Comment on above: Order Comment: Speci men Type: BLOOD SPECIMENOrdering Facility: [facility] Address: [address] [place] [address] Performed By: #### 3 026-2, 3016-3 ####[facility] LABCLIA [id number] [facility] [id number] [address] [place] TSH SerPl-aCncon 08-18-2023 TSH Qn 0.535 m[IU]/L Normal 0.270-4.200 [facility] Comment on above: Order Comment: Specwaqar men Type: BLOOD SPECIMENOrdering Facility: [facility] Address: [address] [place] [address] Performed By: #### 3 026-2, 3016-3 ####[facility] JUANITA [id number] [place] [address] STATES OF [facility] CNOVon 06-17-2023 CNOV Office Visit (RADTSA ) ARVIND RM ([id number]) 1955 M Date Time Provider Department 06/17/23 10:45 AM Azam GUILLERMO During your visit today, we recorded the following information about you: Temperature Pulse Respiration Blood pressure 96.7 degrees 70/minute 18/minute 143/86 Weight 82.1 kg Azam Guillermo MD 06/24/2023 10:46 AM Signed Radiation Oncology -follow-up note PATIENT NAME: Arvind Rm PATIENT : 1955 Primary Site: Thyroid Date of Diagnosis: March 10, 2023 Clinical Stage: T2 N0 M0 Pathologic Stage: T2 N0 M0 DIAGNOSIS: Thyroid cancer, 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 HPI: Patient is doing well. No significant acute issues related to I-131 administration. RADIOLOGY: Post I-131 whole-body scan 06/10/2023: Uptake within an area of thyroid bed only. No suspected metastatic disease. LABORATORY: Latest Reference Range AND Units 04/01/23 13:58 06/03/23 10:39 Thyroglobulin Ab, Serum <4.0 IU/mL <0.9 Thyroglobulin, Serum 1.6 - 50.0 ng/mL 2.8 Thyroglobulin, LC-MS/MS 1.3 - 31.8 ng/mL 1.7 FOCUSED ROS: Dysphagia: No Mucositis: No Voice Changes:Yes improved/no lymph resolved Fatigue: No Nausea: No Vomitting: No Pain: No Taste: No Weight loss: No ALLERGIES Allergen Reactions Clindamycin Rash MEDICATIONS: omeprazole (PRILOSEC) 40 mg capsule Take 40 mg by mouth. famotidine (PEPCID) 20 mg tablet Take 20 mg by mouth. levothyroxine (SYNTHROID) 125 mcg tablet Take 1 tablet by mouth once daily. Start 06/04/23 apixaban (ELIQUIS) 5 mg tab(s) Take 5 mg by mouth. liothyronine (CYTOMEL) 25 mcg tablet pilocarpine (SALAGEN, PILOCARPINE,) 5 mg tablet Take 1 tablet by mouth three times daily. prochlorperazine (COMPAZINE) 10 mg tablet Take 1 tablet by mouth every 8 hours as needed. PAST MEDICAL HISTORY Diagnosis Date DVT (deep venous thrombosis) (HCC) RLE Prior radiation therapy, collagen vascular disease, or inflammatory bowel disease: No PAST SURGICAL HISTORY Procedure Laterality Date THYROIDECTOMY FAMILY HISTORY Problem Relation Age of Onset Cancer Father Colon Cancer Sister Social History Tobacco Use Smoking status: Former Packs/day: 0.50 Years: 5.00 Additional pack years: 0.00 Total pack years: 2.50 Types: Cigarettes Quit date: 1982 Years since quittin.9 Smokeless tobacco: Never Substance Use Topics Alcohol use: Not Currently Drug use: Not Currently COMPLETE REVIEW OF SYSTEMS: GENERAL: feeling well without fatigue, no recent change in weight HEENT: denies TRUONG, change in hearing or vision, no other ENT complaints NECK: See HPI RESPIRATORY: no cough, no wheezing or shortness of breath CARDIOVASCULAR: no chest pain, no palpitations SKIN: no rash NEURO: no numbness or paresthesias and no weakness of the extremities As noted in HPI PHYSICAL EXAM: VS: BP 143/86 Pulse 70 Temp (!) 35.9 ?C (96.7 ?F) Resp 18 Wt 82.1 kg (181 lb) SpO2 98% BMI 29.66 kg/m? KPS: 100 General Appearance: Alert and oriented. No acute distress. Neck: Normal ROM. No palpable cervical or supraclavicular adenopathy. Skin: No rashes noted Lymphatics: No palpable lymphadenopathy. Hematologic: No signs of active bleeding. 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 Patient has done very well after I-131 ablative treatment. No evidence of metastatic disease on post I-131 whole-body scan. Post Thyrogen thyroglobulin detectable but fairly low. Patient is initiated Synthroid. He will have follow-up to determine appropriate TSH suppression. Signed by: Azam Guillermo MD cc: Gael Thomas [address] [place] [phone] Joey Rand MD [address] [place] [address] [address] [facility] [phone] Allergies As of Date: 06/17/2023 Noted Allergy Reaction CLINDAMYCIN 04/01/2023 2 - Rash Date Reviewed: 06/17/2023 Reviewed by: Aurea Chu RN - Fully Assessed Reason for Visit: Prostate Cancer [590] Primary Visit Diagnosis:Thyroid cancer (HCC) [C73] Order(s):T4/THYROXINE BLOOD [SQT4] Order #: [id number] FUTURE TSH BLD [SQTSH] Order #: [id number] FUTURE Prescriptions as of 06/24/2023 - omeprazole (PRILOSEC) 40 mg capsule Take 40 mg by mouth. - famotidine (PEPCID) 20 mg tablet Take 20 mg by mouth. - levothyroxine (SYNTHROID) 125 mcg tablet Take 1 tablet by mouth once daily. Sta (more content not included)... Normal [facility] thyroid ca whole bodyon 1 08-10-2022 [place] thyroid ca whole body [facility] Main [place] [id number] Nuclear Medicine Report Signed Patient: Arvind Rm MR#: [id number] : 1955 Acct:[id number] Age/Sex: 68 / M ADM Date: 06/03/23 Loc: [place] Room: Type: [facility] Attending Dr: Temo Guillermo MD Copies to: MD Pallavi Patel MD Ordering Provider: Azam Guillermo MD Date of Service: 06/10/23 NM/NM thyroid ca whole body: *Dose Ordered* THYROID CA IODINE-131 WHOLE BODY SCAN CLINICAL DATA: Iodine ablation for thyroid cancer. Thyroidectomy February 2023 COMPARISON: None 7 days following the oral ingestion of 74.3 mCi of iodine-131 whole-body imaging was performed. There is intense uptake at the neck in the area of the thyroid bed. There is physiologic activity involving the salivary glands, stomach, colon and liver. There is no obvious evidence of distant metastatic disease. NM/NM thyroid ca whole body IMPRESSION: INTENSE UPTAKE AT THE NECK IN THE AREA OF THE THYROID BED. NO SUSPECTED METASTATIC DISEASE. Impression dictated by: Pallavi Cline M.D.06/10/2023 4:04 PM Dictation Location: [place] [address] Transcribed By: [facility] 06/10/23 160 Dictated By: Pallavi Cline MD 06/10/23 160 Signed By: 06/10/23 [facility] (RADTSA) ARVIND RM ([id number]) 1955 M Date Time Provider Department 06/05/23 Azam GUILLERMO During your visit today, we recorded the following information about you: Sherie Reich LPN 06/05/2023 1:42 PM Signed Please sign pended Thyroid WBS and fax to [facility] and Nuc Med. ELIJAH Wall Angela, RN 06/08/2023 8:21 AM Signed Order was faxed. Aurea Chu RN Allergies As of Date: 06/05/2023 Noted Allergy Reaction CLINDAMYCIN 04/01/2023 2 - Rash Date Reviewed: 06/02/2023 Reviewed by: Sherie Reich LPN - Fully Assessed Reason for Visit: Orders [681] Primary Visit Diagnosis:Thyroid cancer (HCC) [C73] Order(s):NM THYROID CA WB [[id number]] Order #: [id number] FUTURE Prescriptions as of 06/08/2023 - omeprazole (PRILOSEC) 40 mg capsule Take 40 mg by mouth. - famotidine (PEPCID) 20 mg tablet Take 20 mg by mouth. - levothyroxine (SYNTHROID) 125 mcg tablet Take 1 tablet by mouth once daily. Start 06/04/23 - apixaban (ELIQUIS) 5 mg tab(s) Take 5 mg by mouth. - liothyronine (CYTOMEL) 25 mcg tablet 1 tablet on an empty stomach Orally BID - pilocarpine (SALAGEN, PILOCARPINE,) 5 mg tablet Take 1 tablet by mouth three times daily. - prochlorperazine (COMPAZINE) 10 mg tablet Take 1 tablet by mouth every 8 hours as needed. Problem List As Of Date 06/05/2023 Noted Resolved Thyroid cancer (HCC) [C73] 04/02/2023 Encounter Status:Closed by Azam GUILLERMO on 06/05/23 Normal [facility] Thyroglobulin and Thyrogobul in Ab panelon 06-04-2023 Thyroglobulin Ab Qn <4.0 IU/mL [facility] Thyroglobulin, Serum 2.8 ng/mL 1.6 - 5 0.0 ng/mL [facility] CNOVon 06-03-2023 CNOV Office Visit (RADTSA ) ARVIND RM ([id number]) 1955 M Date Time Provider Department 06/03/23 12:15 PM Azam GUILLERMO RADMARQUISEA During your visit today, we recorded the following information about you: Azam Guillermo MD 06/04/2023 1:08 PM Signed PATIENT NAME: Arvind Rm PATIENT : 1955 See note at [facility] [place] Allergies As of Date: 06/03/2023 Noted Allergy Reaction CLINDAMYCIN 04/01/2023 2 - Rash Date Reviewed: 06/02/2023 Reviewed by: Sherie Reich LPN - Fully Assessed Primary Visit Diagnosis:Thyroid cancer (HCC) [C73] Order(s):THYROGLOBULIN , SERUM WITH REFLEX TO IA OR LC-MS/MS [SQTHYRORF] Order #: [id number] FUTURE Prescriptions as of 06/04/2023 - omeprazole (PRILOSEC) 40 mg capsule Take 40 mg by mouth. - famotidine (PEPCID) 20 mg tablet Take 20 mg by mouth. - levothyroxine (SYNTHROID) 125 mcg tablet Take 1 tablet by mouth once daily. Start 06/04/23 - apixaban (ELIQUIS) 5 mg tab(s) Take 5 mg by mouth. - liothyronine (CYTOMEL) 25 mcg tablet 1 tablet on an empty stomach Orally BID - pilocarpine (SALAGEN, PILOCARPINE,) 5 mg tablet Take 1 tablet by mouth three times daily. - prochlorperazine (COMPAZINE) 10 mg tablet Take 1 tablet by mouth every 8 hours as needed. Problem List As Of Date 06/03/2023 Noted Resolved Thyroid cancer (HCC) [C73] 04/02/2023 Encounter Status:Closed by Azam GUILLERMO on 06/04/23 [facility] tx radpharm oralon 2022 [place] tx radpharm oral [facility] [place] [address] Nuclear Medicine Report Signed Patient: Arvind Rm MR#: [id number] : 1955 Acct:[id number] Age/Sex: 68 / M ADM Date: 06/03/23 Loc: [place] Room: Type: [facility] Attending Dr: Temo Guillermo MD Copies to: Azam Guillermo MD Ordering Provider: Azam Guillermo MD Date of Service: 06/03/23 NM/NM tx radpharm oral: THYROID CANCER DIAGNOSIS: Thyroid cancer. PROCEDURE: I-131 ablative therapy. RADIOPHARMACEUTICAL: I-131. PRESCRIBED ACTIVITY: 75 mCi. ASSAYED ACTIVITY: 74.3. The patient was identified by the patient name, date. Prior to the procedure, he was confirmed to be appropriate for outpatient administration and understood all the radiation safety instructions. He was given a single capsule. He will come back in 1 week for whole body scan. Followup has been arranged. Transcribed By: HARPER 06/03/23 1412 Dictated By: Azam Guillermo MD 06/03/23 1226 Signed By: 08/07/23 1102 [facility] Thyroglobulin and Thyrogobul in Ab panelon 06-03-2023 Thyroglobulin Ab Qn [IU]/mL Normal <4.0 [facility] Comment on above: Order Comment: Filemon mix Type: BLOOD SPECIMENOrdering Facility: [facility] Address: [address] [place] [address] Result Comment: The Thyroglobulin Antibody test was performed using the [employer] DXI paramagnetic particle chemiluminescent immunoassay method. Results obtained with different assay methods or kits cannot be used interchangeably. Performed By: #### 5 [id number] ####[facility] LABIA [id number] [place] [address] [place] THYROGLOBULIN, SERUM 2.8 ng/mL Normal 1.6-50.0 [facility] Comment on above: Order Comment: Filemon mix Type: BLOOD SPECIMENOrdering Facility: [facility] Address: [address] [place] [address] Result Comment: The Thyroglobulin test was performed using the [employer] DXI paramagnetic particle chemiluminescent immunoassay method. Results obtained with different assay methods or kits cannot be used interchangeably. Performed By: #### 5 [id number] ####[facility] LABIA [id number] [place] [address] [place] CNOVon 06-02-2023 CNOV Office Visit (RADTSA ) GINODANIEKARRIARVIND ([id number]) 1955 M Date Time Provider Department 06/02/23 9:00 AM LAB/PORT RADT MELISSA RITCHIERadha During your visit today, we recorded the following information about you: Temperature Pulse Respiration Blood pressure 97.4 degrees 78/minute 16/minute 132/84 Referring Provider: Azam GUILLERMO [[id number]] Allergies As of Date: 06/02/2023 Noted Allergy Reaction CLINDAMYCIN 04/01/2023 2 - Rash Date Reviewed: 06/02/2023 Reviewed by: Sherie Reich LPN - Fully Assessed Reason for Visit: Thyroid Cancer [879] Primary Visit Diagnosis:Thyroid cancer (HCC) [C73] Order(s):[] thyrotropin zi 0.9 mg injection (THYROGEN)Disp: Rfl: Prescriptions as of 06/02/2023 - omeprazole (PRILOSEC) 40 mg capsule Take 40 mg by mouth. - famotidine (PEPCID) 20 mg tablet Take 20 mg by mouth. - levothyroxine (SYNTHROID) 125 mcg tablet Take 1 tablet by mouth once daily. Start 06/04/23 - apixaban (ELIQUIS) 5 mg tab(s) Take 5 mg by mouth. - liothyronine (CYTOMEL) 25 mcg tablet 1 tablet on an empty stomach Orally BID - pilocarpine (SALAGEN, PILOCARPINE,) 5 mg tablet Take 1 tablet by mouth three times daily. - prochlorperazine (COMPAZINE) 10 mg tablet Take 1 tablet by mouth every 8 hours as needed. Problem List As Of Date 06/02/2023 Noted Resolved Thyroid cancer (HCC) [C73] 04/02/2023 Prescriptions ordered this encounter Disp Refills Start End THYROTROPIN ZI 0.9 MG INTRAMUSCULA* 06/02/2023 06/02/2023 Route: INTRAMUSCULA Encounter Status:Closed by SHERIE REICH on 06/02/23 [facility] CNOVon 06-01-2023 CNOV Office Visit (RADTSA ) ARVIND RM ([id number]) 1955 M Date Time Provider Department 06/01/23 9:00 AM LAB/PORT RADT MELISSA CRUZ During your visit today, we recorded the following information about you: Temperature Pulse Respiration Blood pressure 97 degrees 68/minute 16/minute 133/86 Weight 80.3 kg Referring Provider: Azam GUILLERMO [[id number]] Allergies As of Date: 06/01/2023 Noted Allergy Reaction CLINDAMYCIN 04/01/2023 2 - Rash Date Reviewed: 06/01/2023 Reviewed by: Sherie Reich LPN - Fully Assessed Reason for Visit: Thyroid Cancer [879] Primary Visit Diagnosis:Thyroid cancer (HCC) [C73] Order(s):[] thyrotropin zi 0.9 mg injection (THYROGEN)Disp: Rfl: Prescriptions as of 06/01/2023 - levothyroxine (SYNTHROID) 125 mcg tablet Take 1 tablet by mouth once daily. Start 06/04/23 - apixaban (ELIQUIS) 5 mg tab(s) Take 5 mg by mouth. - liothyronine (CYTOMEL) 25 mcg tablet 1 tablet on an empty stomach Orally BID - pilocarpine (SALAGEN, PILOCARPINE,) 5 mg tablet Take 1 tablet by mouth three times daily. - prochlorperazine (COMPAZINE) 10 mg tablet Take 1 tablet by mouth every 8 hours as needed. Problem List As Of Date 06/01/2023 Noted Resolved Thyroid cancer (HCC) [C73] 04/02/2023 Prescriptions ordered this encounter Disp Refills Start End THYROTROPIN ZI 0.9 MG INTRAMUSCULA* 06/01/2023 06/01/2023 Route: INTRAMUSCULA Encounter Status:Closed by SHERIE REICH on 06/01/23 [facility] 05-22-2023 Follow-Up [id number] Arvind Rm 1955 M Date Provider Department Center 05/22/2023 EmilMARGY LISS HVCVASENDO [place] [facility] No family history on file Level of Service:08312 OR OFFICE/OUTPATIENT ESTABLISHED MOD MDM 30-39 MIN Normal [facility] Yovani 04-28-2023 L -- ---- Specimen: [id number] Received: 04/28/23 Status: CINDY Fadi Num: [id number] Spec Type: Surgical Subm Dr: Modesto Guzmán MD Tissues: A Colon Biopsy (CECAL POLYPS) B Colon Biopsy (ASCENDING POLYP) C Colon Biopsy (RECTAL POLYP) Procedures: HE/Harinder Thornton/Paige L4/3 ---- Age/ Patient Sex Location Account Attending Physician ---- Arvind Rm 68/M [id number] Modesto Guzmán MD ---- SPEC NUM: [id number] RECD: 04/28/23 STATUS: JHONNYCecilia APONTE NUM: [id number] NANDO: 04/28/23 DR: Modesto Guzmán MD ENTERED: 04/28/23 [facility] DR: SPEC TYPE: Surgical DEPT: S ORDERED: HE/6, Gross/Micro L4/3 ORDERED: HE/6, Gross/Micro L4/3 Pathological Diagnosis A. Cecum, polyp, biopsy: - Fragments of tubulovillous adenoma(s) B. Colon, ascending, polyp, biopsy: - Tubular adenoma C. Rectum, polyp, biopsy: - Fragments of hyperplastic polyp(s) Clinical Information History of polyps Gross Description A. Received in formalin labeled with the patient's name, date of and cecal polyps are multiple baltazar tissues measuring 1.5 x 1.0 x 0.3 cm in aggregate. Entirely submitted in one cassette labeled A1. B. Received in formalin labeled with the patient's name, date of and ascending colon ---- Specimen: [id number] Received: 04/28/23 Status: CINDY Aponte Num: [id number] Spec Type: Surgical Subm Dr: Modesto Guzmán MD Tissues: A Colon Biopsy (CECAL POLYPS) B Colon Biopsy (ASCENDING POLYP) C Colon Biopsy (RECTAL POLYP) Procedures: HE/6, Gross/Micro L4/3 ---- Patient: Arvind Rm Cade [id number] (Continued) ---- Specimen: [id number] Received: 04/28/23 (Continued) Gross Description (Continued) Signed (signature on file) Favian Nash MD 04/29/23 0943 ---- Specimen: [id number] Received: 04/28/23 Status: CINDY Aponte Num: [id number] Spec Type: Surgical Subm Dr: Modesto Guzmán MD Tissues: A Colon Biopsy (CECAL POLYPS) B Colon Biopsy (ASCENDING POLYP) C Colon Biopsy (RECTAL POLYP) Procedures: HE/6, Gross/Micro L4/3 ---- Patient: Arvind Rm [id number] (Continued) ---- Specimen: [id number] Received: 04/28/23 (Continued) Gross Description (Continued) are two baltazar tissues measuring 0.1 cm and 0.3 cm. Entirely submitted in one cassette lab eled B1. C. Received in formalin labeled with the patient's name, date of and rectal polyp is one baltazar tissue measuring 0.6 x 0.3 x 0.2 cm. Entirely submitted in one cassette labeled C1. Microscopic Description A. Two H E slides reviewed. The microscopic examination confirms the diagnosis. B. Two H E slides reviewed. The microscopic examination confirms the diagnosis. C. Two H E slides reviewed. The microscopic examination confirms the diagnosis. CPT Codes 09042d2 ---- ---- Specimen: [id number] Received: 04/28/23 Status: CINDY Aponte Num: [id number] Spec Type: Surgical Subm Dr: Modesto Guzmán MD Tissues: A Colon Biopsy (CECAL POLYPS) B Colon Biopsy (ASCENDING POLYP) C Colon Biopsy (RECTAL POLYP) Procedures: HE/6, Gross/Micro L4/3 ---- Patient: Arvind Rm [id number] (Continued) ---- Signed (signature on file) Favian Nash MD 04/29/23 0943 [facility] THYROGLOBULIN BY MASS SPECTR OMETRYon 04-07-2023 Thyroglobulin [Mass/Vol] 1.7 ng/mL 1.3 - 31.8 ng/mL [facility] CNOVon 04-01-2023 CNOV Office Visit (RADTSA ) ARVIND RM ([id number]) 1955 M Date Time Provider Department 04/01/23 2:00 PM LAB/PORT RADT MELISSA CRUZ During your visit today, we recorded the following information about you: Sherie Reich LPN 04/01/2023 3:13 PM Signed Arvind Rm presents in office today for: Lab Draw during Office Visit . Ordering Provider: Oracio Guillermo M.D. Test (s) ordered: Thyroglobulin level Method for obtaining blood: Phlebotomy was performed, accessing right antecubital vein. Needle removed intact. Dressing secured. Patient denies discomfort, dizziness, light-headedness or weakness and left the department without assist. Sherie Reich LPN Referring Provider: SELF [[id number]] Allergies As of Date: 04/01/2023 Noted Allergy Reaction CLINDAMYCIN 04/01/2023 2 - Rash Date Reviewed: Never Reviewed Primary Visit Diagnosis:Thyroid cancer (HCC) [C73] Prescriptions as of 04/01/2023 - apixaban (ELIQUIS) 5 mg tab(s) Take 5 mg by mouth. - liothyronine (CYTOMEL) 25 mcg tablet 1 tablet on an empty stomach Orally BID - pilocarpine (SALAGEN, PILOCARPINE,) 5 mg tablet Take 1 tablet by mouth three times daily. - prochlorperazine (COMPAZINE) 10 mg tablet Take 1 tablet by mouth every 8 hours as needed. - levothyroxine (SYNTHROID) 125 mcg tablet Take 1 tablet by mouth once daily. Start 06/04/23 Problem List As Of Date: 04/01/2023 (None) Visit Notes: >> Sherie Reich LPN Wed Apr 01, 2023 3:12 PM Status: Signed Arvind Rm presents in office today for: Lab Draw during Office Visit . Ordering Provider: Oracio Guillermo M.D. Test (s) ordered: Thyroglobulin level Method for obtaining blood: Phlebotomy was performed, accessing right antecubital vein. Needle removed intact. Dressing secured. Patient denies discomfort, dizziness, light-headedness or weakness and left the department without assist. Sherie Reich LPN Encounter Status:Closed by SHERIE REICH on 04/01/23 [facility] Office Visit (RADTSA ) ARVIND RM ([id number]) 1955 M Date Time Provider Department 04/01/23 1:00 PM Azam GUILLERMO During your visit today, we recorded the following information about you: Temperature Pulse Respiration Blood pressure 98 degrees 86/minute 16/minute 115/78 Weight Height 78.9 kg 1.664 m Azam Guillermo MD 04/08/2023 10:50 AM Signed Radiation Oncology - New Patient/Consult Note PATIENT NAME: Arvind Rm PATIENT : 1955 REQUESTING PROVIDER: Dr. 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 Final recommendations will be communicated back to the requesting physician by way of the shared medical record, or letter to requesting physician via US mail. Patient presented with a enlarged/lump in thyroid left greater than right. He underwent evaluation with ultrasound thyroid on 10/30/2022, which demonstrated single dominant nodule 3.3 x 2.2 x 2.1 cm on the right solid hypoechoic. On the left single dominant nodule 4.5 cm x 3.1 cm x 3.4 cm solid hypoechoic wide TR 5. FNA was done on 11/11/2022 demonstrating atypia of undetermined significance from the right thyroid inferior nodule, and similarly atypia of undetermined significance with a left thyroid nodule. On 03/10/2023, patient underwent total thyroidectomy. Intraoperative findings included a 5 cm large buccal mass with extensive fibrosis to surrounding strap muscles and a rubbery 3.5 cm inferior pole mass. Pathology demonstrated, 4.0 cm papillary thyroid carcinoma classic subtype from the left and papillary microcarcinoma on the right, classic subtype. 1 benign lymph node submitted. No angiolymphatic invasion, lymphatic invasion, perineural invasion or extrathyroidal extension seen. pT2pN0 FOCUSED ROS: Dysphagia: No Mucositis: No Voice Changes:Yes improved/no lymph resolved Fatigue: No Nausea: No Vomitting: No Pain: No Taste: No Weight loss: No ALLERGIES Allergen Reactions Clindamycin Rash MEDICATIONS: apixaban (ELIQUIS) 5 mg tab(s) Take 5 mg by mouth. liothyronine (CYTOMEL) 25 mcg tablet 1 tablet on an empty stomach Orally BID pilocarpine (SALAGEN, PILOCARPINE,) 5 mg tablet Take 1 tablet by mouth three times daily. prochlorperazine (COMPAZINE) 10 mg tablet Take 1 tablet by mouth every 8 hours as needed. levothyroxine (SYNTHROID) 125 mcg tablet Take 1 tablet by mouth once daily. Start 06/04/23 PAST MEDICAL HISTORY Diagnosis Date DVT (deep venous thrombosis) (HCC) RLE Prior radiation therapy, collagen vascular disease, or inflammatory bowel disease: No PAST SURGICAL HISTORY Procedure Laterality Date THYROIDECTOMY FAMILY HISTORY Problem Relation Age of Onset Cancer Father Colon Cancer Sister Social History Tobacco Use Smoking status: Former Packs/day: 0.50 Years: 5.00 Additional pack years: 0.00 Total pack years: 2.50 Types: Cigarettes Quit date: 1982 Years since quittin.7 Smokeless tobacco: Never Substance Use Topics Alcohol use: Not Currently Drug use: Not Currently COMPLETE REVIEW OF SYSTEMS: GENERAL: feeling well without fatigue, no recent change in weight HEENT: denies TRUONG, change in hearing or vision, no other ENT complaints NECK: See HPI RESPIRATORY: no cough, no wheezing or shortness of breath CARDIOVASCULAR: no chest pain, no palpitations SKIN: no rash NEURO: no numbness or paresthesias and no weakness of the extremities As noted in HPI PHYSICAL EXAM: VS: BP 115/78 Pulse 86 Temp 36.7 ?C (98 ?F) Resp 16 Ht 166.4 cm (5' 5.5 ) Wt 78.9 kg (174 lb) SpO2 97% BMI 28.51 kg/m? KPS: 100 General Appearance: Alert and oriented. No acute distress. HEENT: NCAT. Sclera anicteric. PERRL. EOMI. Oral cavity AND oropharnyx: lips and gums normal, oral and pharyngeal mucosa moist, palate elevates normally, tongue mobile and without palpable lesions, tonsils without masses Trismus: none Dentition: Good Neck: Normal ROM. No palpable cervical or supraclavicular adenopathy. Chest: No respiratory distress. Lungs clear to auscultation bilaterally. Heart: Regular rate and rhythm. Abdomen: Soft. Nontender. Nondistended. Musculoskeletal: No edema. Normal ROM in extremities. No bone or spine tenderness. Neuro: Speech fluent. Gait normal. No focal deficits. Skin: No rashes noted Lymphatics: No palpable lymphadenopathy. Hematologic: No signs of active bleeding. RADIOLOGY/LABORATORY DATA: see HPI ASSESS (more content not included)... Normal [facility] ARVIND RM ([id number]) 1955 M Date Time Provider Department 04/01/23 Azam GUILLERMO During your visit today, we recorded the following information about you: Sherie Reich LPN 04/01/2023 2:12 PM Signed Pharmacy: Will you please order Thyrogen for 06/01/23 and 06/02/[address] Guillermo? Thanks ELIJAH Wall Angela, RN 04/08/2023 10:[address] Guillermo-- please sign off on pended order for I-131 with dosing. Thank you Aurea Chu RN Allergies As of Date: 04/01/2023 Noted Allergy Reaction CLINDAMYCIN 04/01/2023 2 - Rash Date Reviewed: Never Reviewed Reason for Visit: Orders [681] Primary Visit Diagnosis:Thyroid cancer (HCC) [C73] Order(s):I-131SODIUMIO DIDECAP PER MCI [[id number]] Order #: [id number] Prescriptions as of 04/08/2023 - apixaban (ELIQUIS) 5 mg tab(s) Take 5 mg by mouth. - liothyronine (CYTOMEL) 25 mcg tablet 1 tablet on an empty stomach Orally BID - pilocarpine (SALAGEN, PILOCARPINE,) 5 mg tablet Take 1 tablet by mouth three times daily. - prochlorperazine (COMPAZINE) 10 mg tablet Take 1 tablet by mouth every 8 hours as needed. - levothyroxine (SYNTHROID) 125 mcg tablet Take 1 tablet by mouth once daily. Start 06/04/23 Problem List As Of Date: 04/01/2023 (None) Encounter Status:Closed by Azam GUILLERMO on 04/08/23 Normal [facility] THYROGLOBULIN BY MASS SPECTR OMETRYon 04-01-2023 THYROGLOBULIN, LC-MS/MS 1.7 ng/mL Normal 1.3-31.8 [facility] Comment on above: Order Comment: Speci men Type: BLOOD SPECIMENOrdering Facility: [facility] Address: [address] [place], [place] [address] [address] Result Comment: Results obtained with different test methods or kits cannot be used interchangeably. Thyroglobulin results, regardless of concentration, should not be interpreted as absolute evidence for the presence or absence of papillary or follicular thyroid cancer. Thyroglobulin testing is not recommended for use as a screening procedure to detect the presence of thyroid cancer in the general population. INTERPRETIVE INFORMATION: Thyroglobulin by LC-MS/MS, Serum/Plasma Lower limit of detection for Thyroglobulin by LC-MS/MS is 0.5 ng/mL. This test was developed and its performance characteristics determined by [employer] [facility]. It has not been cleared or approved by the US Food and Drug Administration. This test was performed in a CLIA certified laboratory and is intended for clinical purposes. Performed By: [facility] [address] [place] [address] Shovel Log Loader Operator: Luis Herrera MD, PhD CLIA Number: [id number] Performed By: #### [facility] ####[facility] [id number] [place] [address] APTTon 03-20-2023 ACTIVATED PARTIAL THROMBOPLASTIN TIME IN PPP BY COAGULATION ASSAY 62.7 Seconds High 25.0-35.0 [facility] Comment on above: Order Comment: Monit or aPTT level 6 hours after rate change, then every 6 hours until therapeutic twice. While therapeutic monitor every AM. Result Comment: Clin ical significance of the APTT is questionable in the presence of heparin. Performed By: #### L [id number] #### [facility] ([facility]) [address] [place] [address] [place] [address] ACTIVATED PARTIAL THROMBOPLASTIN TIME IN PPP BY COAGULATION ASSAY 76.6 Seconds High 25.0-35.0 [facility] Comment on above: Order Comment: Monit or aPTT level 6 hours after rate change, then every 6 hours until therapeutic twice. While therapeutic monitor every AM. Result Comment: Clin ical significance of the APTT is questionable in the presence of heparin. Performed By: #### L [id number] #### [facility] ([facility]) [address] [place] [place] [address] ACTIVATED PARTIAL THROMBOPLASTIN TIME IN PPP BY COAGULATION ASSAY 118.5 Seconds High 25.0-35.0 [facility] Comment on above: Order Comment: Basel ine aPTT before initiating heparin infusion. Result Comment: Clin ical significance of the APTT is questionable in the presence of heparin. Performed By: #### L [id number] #### [facility] ([facility]) [address] [place] [address] BASIC METABOLIC PANELon 08-2 Anion gap [Moles/Vol] 12 mmol/L Normal 7-20 [facility] Comment on above: Performed By: #### L [id number] #### [facility] ([facility]) [address] [place] [address] Calcium [Mass/Vol] 8.7 mg/dL Normal 8.6-10.3 [facility] Comment on above: Performed By: #### L [id number] #### [facility] ([facility]) [address] [place] [address] Chloride [Moles/Vol] 105 mmol/L Normal 98-107 [facility] Comment on above: Performed By: #### L AB113 #### [facility] ([facility]) [address] [place] [address] CO2 [Moles/Vol] 24 mmol/L Normal 21-31 [facility] Comment on above: Performed By: #### L AB113 #### [facility] ([facility]) [address] [place] [address] Creatinine [Mass/Vol] 0.93 mg/dL Normal 0.70-1.30 [facility] Comment on above: Performed By: #### L AB113 #### [facility] ([facility]) [address] [place] [address] GLOMERULAR FILTRATION RATE ML/MIN/1.73 SQ M.PREDICTED 89.4 mL/min/1.73m*2 Normal >60.0 [facility] Comment on above: Result Comment: The [facility]???s estimated glomerular filtration rate (eGFR) will no longer include consideration of race in its calculation. The National Kidney Foundation???s eGFR Task Force developed new recommendations for the estimation of the glomerular filtration rate in the [place] They recommend immediate implementation of the new equation refit without the race variable in all laboratories because the calculation does not include race. In addition to not including race in the calculation and reporting, it included diversity in its development, and has acceptable performance characteristics and potential consequences that do not disproportionately affect any one group of individuals. Performed By: #### L AB113 #### [facility] ([facility]) [address] [place] [address] Glucose [Mass/Vol] 125 mg/dL High 70-100 [facility] Comment on above: Performed By: #### L [id number] #### [facility] ([facility]) [address] [place] [address] Potassium [Moles/Vol] 3.8 mmol/L Normal 3.5-5.1 [facility] Comment on above: Performed By: #### L [id number] #### [facility] ([facility]) [address] [place] [address] Sodium [Moles/Vol] 137 mmol/L Normal 136-145 [facility] Comment on above: Performed By: #### L [id number] #### [facility] ([facility]) [address] [place] [address] Urea nitrogen [Mass/Vol] 22 mg/dL Normal 7-25 [facility] Comment on above: Performed By: #### L [id number] #### [facility] ([facility]) [address] [place] [address] UREA NITROGEN/CREATININE (MASS RATIO) IN SER/PLAS 23.7 Normal [facility] Comment on above: Performed By: #### L [id number] #### [facility] ([facility]) [address] [place] [address] CBCon 03-20-2023 Erythrocyte distribution width (RBC) [Ratio] 12.1 % Normal 11.5-15.0 [facility] Comment on above: Performed By: #### L [id number] #### [facility] ([facility]) [address] [place] [address] ERYTHROCYTE MEAN CORPUSCULAR HEMOGLOBIN CONCENTRATION (G/DL) BY AUTOMATED 35.4 g/dL High 32.0-35.0 [facility] Comment on above: Performed By: #### L [id number] #### [facility] ([facility]) [address] [place] [address] Hematocrit (Bld) [Volume fraction] 39.0 % Normal 39.0-55.0 [facility] Comment on above: Performed By: #### L [id number] #### [facility] [address] [place] [address] Hemoglobin (Bld) [Mass/Vol] 13.8 g/dL Normal 13.0-17.0 [facility] Comment on above: Performed By: #### L [id number] #### [facility] [address] [place] [address] MCH (RBC) [Entitic mass] 30.8 pg Normal 27.0-33.0 [facility] Comment on above: Performed By: #### L [id number] #### [facility] [address] [place] [address] MCV (RBC) [Entitic vol] 87.1 fL Normal 82.0-98.0 [facility] Comment on above: Performed By: #### L [id number] #### [facility] [address] [place] [address] PLATELETS (10*3/UL) IN BLOOD AUTOMATED COUNT 205 10*3/uL Normal 150-400 [facility] Comment on above: Performed By: #### L [id number] #### [facility] [address] [address] RBC (Bld) [#/Vol] 4.48 10*6/uL Normal 4.20-5.70 [facility] Comment on above: Performed By: #### L [id number] #### [facility] ([facility]) [address] [place] [address] WBC (Bld) [#/Vol] 8.59 10*3/uL Normal 4.00-10.60 [facility] Comment on above: Performed By: #### L [id number] #### [facility] ([facility]) [address] [place] [address] CBC WITH AUTO DIFFERENTIALon 03-20-2023 Basophils (Bld) [#/Vol] 0.02 10*3/uL Normal 0.00-0.20 [facility] Comment on above: Performed By: #### L [id number] #### [facility] [address] [place] [address] Basophils/100 WBC (Bld) 0.3 % Normal 0.0-1.0 [facility] Comment on above: Performed By: #### L [id number] #### [facility] [address] [place] [address] Eosinophils (Bld) [#/Vol] 0.12 10*3/uL Normal 0.00-0.50 [facility] Comment on above: Performed By: #### L [id number] #### [facility] ([facility]) [address] [place] [address] Eosinophils/100 WBC (Bld) 1.6 % Normal 0.0-6.0 [facility] Comment on above: Performed By: #### L [id number] #### [facility] ([facility]) [address] [place] [address] Erythrocyte distribution width (RBC) [Ratio] 12.1 % Normal 11.5-15.0 [facility] Comment on above: Performed By: #### L [id number] #### [facility] ([facility]) [address] [place] [address] ERYTHROCYTE MEAN CORPUSCULAR HEMOGLOBIN CONCENTRATION (G/DL) BY AUTOMATED 34.9 g/dL Normal 32.0-35.0 [facility] Comment on above: Performed By: #### L [id number] #### [facility] ([facility]) [address] [place] [address] Hematocrit (Bld) [Volume fraction] 39.2 % Normal 39.0-55.0 [facility] Comment on above: Performed By: #### L [id number] #### [facility] ([facility]) [address] [place] [address] Hemoglobin (Bld) [Mass/Vol] 13.7 g/dL Normal 13.0-17.0 [facility] Comment on above: Performed By: #### L [id number] #### [facility] ([facility]) [address] [place] [address] Immature granulocytes (Bld) [#/Vol] 0.08 10*3/uL Normal 0.00-0.20 [facility] Comment on above: Performed By: #### L [id number] #### [facility] ([facility]) [address] [place] [address] Immature granulocytes/100 WBC (Bld) 1.0 % Normal 0.0-1.0 [facility] Comment on above: Performed By: #### L [id number] #### [facility] ([facility]) [address] [place] [address] Lymphocytes (Bld) [#/Vol] 1.78 10*3/uL Normal 1.20-4.00 [facility] Comment on above: Performed By: #### L [id number] #### [facility] ([facility]) [address] [place] [address] Lymphocytes/100 WBC (Bld) 23.0 % Normal 20.0-45.0 [facility] Comment on above: Performed By: #### L [id number] #### [facility] ([facility]) [address] [place] [address] MCH (RBC) [Entitic mass] 30.6 pg Normal 27.0-33.0 [facility] Comment on above: Performed By: #### L [id number] #### [facility] ([facility]) [address] [place] [address] MCV (RBC) [Entitic vol] 87.5 fL Normal 82.0-98.0 [facility] Comment on above: Performed By: #### L [id number] #### [facility] ([facility]) [address] [place] [address] Monocytes (Bld) [#/Vol] 0.89 10*3/uL Normal 0.10-1.00 [facility] Comment on above: Performed By: #### L [id number] #### [facility] ([facility]) [address] [place] [address] Monocytes/100 WBC (Bld) 11.5 % Normal 5.0-12.0 [facility] Comment on above: Performed By: #### L [id number] #### [facility] ([facility]) [address] [address] Neutrophils (Bld) [#/Vol] 4.85 10*3/uL Normal 1.60-7.60 [facility] Comment on above: Performed By: #### L [id number] #### [facility] ([facility]) [address] [place] [address] Neutrophils/100 WBC (Bld) 62.6 % Normal 40.0-72.0 [facility] Comment on above: Performed By: #### L [id number] #### [facility] ([facility]) [address] [address] NRBC (PER 100 WBCS) BY AUTOMATED COUNT 0.0 % Normal 0 [facility] Comment on above: Performed By: #### L [id number] #### [facility] ([facility]) [address] [place] [address] PLATELETS (10*3/UL) IN BLOOD AUTOMATED COUNT 200 10*3/uL Normal 150-400 [facility] Comment on above: Performed By: #### L [id number] #### [facility] ([facility]) [address] [facility] [place] [address] RBC (Bld) [#/Vol] 4.48 10*6/uL Normal 4.20-5.70 [facility] Comment on above: Performed By: #### L [id number] #### [facility] ([facility]) [address] [place] [address] WBC (Bld) [#/Vol] 7.74 10*3/uL Normal 4.00-10.60 [facility] Comment on above: Performed By: #### L [id number] #### [facility] ([facility]) [address] [place] [address] DSon 03-20-2023 DS Admission Admitted 03/19/2023 for extensive RLE DVT Discharge Diagnosis DVT, lower extremity, proximal, acute, right ([facility]/HCC) Discharge Disposition Home or Self Care Discharge Medications Your medication list START taking these medications Instructions Last Dose Given Next Dose Due apixaban 5 mg tablet Commonly known as: Eliquis Take 2 tablets (10 mg) by mouth in the morning and at bedtime for 14 doses. apixaban 5 mg tablet Commonly known as: Eliquis Start taking on: March 27, 2023 Take 1 tablet (5 mg) by mouth in the morning and at bedtime for 198 doses. Do not start before March 27, 2023. CONTINUE taking these medications Instructions Last Dose Given Next Dose Due CALCIUM 600 ORAL liothyronine 25 mcg tablet Commonly known as: Cytomel MAGNESIUM ORAL multivitamin tablet Vitamin D3 5,000 Units tablet Generic drug: cholecalciferol ZINC-15 ORAL Where to Get Your Medications These medications were sent to [facility] - [place], [place] - [address] [place] [address], [facility] [address] apixaban 5 mg tablet apixaban 5 mg tablet Activity Patient currently has no discharge activity orders Diet Patient currently has no discharge diet orders Allergies Clindamycin and Shellfish derived Hospital Course Arvind Rm is a 68 y.o. male presenting to [facility] as a direct admit from [facility] on 03/19 for extensive right lower extremity DVT. He noticed pain in his right foot a few days after thyroidectomy for malignant nodule. Pain progressively moved to right calf. He was started on heparin. CTV completed showed femoral vein thrombosis and small area in the common femoral vein. Due to symptoms and swelling being mild he was continue on just anticoagulation without intervention. He was subsequently discharged on 03/20 on Eliquis. Pertinent Physical Exam At Time of Discharge Refer to progress note on date of discharge Outpatient Follow-Up Future Appointments Date Time Provider Department Center 05/22/2023 10:15 AM Liss Ji NP [facility] [place] [facility] Normal [facility] HEPARIN LEVELon 03-20-2023 HEPARIN UNFRACTIONATED (U/ML) IN PPP BY CHROMOGENIC METHOD 0.31 IU/mL Normal 0.3-0.7 [facility] Comment on above: Result Comment: Willis roxaban and Apixaban will interfere with the anti Xa assay used to monitor UFH and LMWH. Performed By: #### L [id number] #### [facility] ([facility]) [address] [place] [address] HEPARIN UNFRACTIONATED (U/ML) IN PPP BY CHROMOGENIC METHOD 0.23 IU/mL Low 0.3-0.7 [facility] Comment on above: Result Comment: Layne roxaban and Apixaban will interfere with the anti Xa assay used to monitor UFH and LMWH. Performed By: #### L [id number] #### [facility] ([facility]) [address] [place] [address] HEPARIN UNFRACTIONATED (U/ML) IN PPP BY CHROMOGENIC METHOD 0.34 IU/mL Normal 0.3-0.7 [facility] Comment on above: Result Comment: Layne roxaban and Apixaban will interfere with the anti Xa assay used to monitor UFH and LMWH. Performed By: #### L [id number] #### [facility] ([facility]) [address] [place] [address] HEPARIN UNFRACTIONATED (U/ML) IN PPP BY CHROMOGENIC METHOD 0.51 IU/mL Normal 0.3-0.7 [facility] Comment on above: Order Comment: Check anti-Xa level every 6 hours while on heparin infusion, or per protocol. Result Comment: Layne roxaban and Apixaban will interfere with the anti Xa assay used to monitor UFH and LMWH. Performed By: #### L [id number] #### [facility] ([facility]) [address] [place] [address] MAGNESIUMon 03-20-2023 Magnesium [Mass/Vol] 2.0 mg/dL Normal 1.9-2.7 [facility] Comment on above: Performed By: #### L [id number] #### [facility] ([facility]) [address] [place] [address] PHOSPHORUSon 03-20-2023 Magnesium [Mass/Vol] 3.5 mg/dL Normal 2.5-5.0 [facility] Comment on above: Performed By: #### L [id number] #### [facility] ([facility]) [address] [place] [address] PROTIME-INRon 03-20-2023 INR IN PPP BY COAGULATION ASSAY 1.15 High 0.90-1.10 [facility] Comment on above: Result Comment: ACCC P RECOMMENDED INR FOR WARFARIN THERAPY CONDITION INR PROPHYLAXIS OF VENOUS THROMBOSIS 2-3 (HIGH-RISK SURGERY) TREATMENT OF VENOUS THROMBOSIS 2-3 TREATMENT OF PULMONARY EMBOLISM 2-3 PREVENTION OF SYSTEMIC EMBOLISM: 2-3 ACUTE MYOCARDIAL INFARCTION TISSUE HEART VALVES VALVULAR HEART DISEASE ATRIAL FIBRILLATION RECURRENT SYSTEMIC EMBOLISM MECHANICAL HEART VALVE 2.5-3.5 FROM: ORAL ANTICOAGULANTS. MECHANISM OF ACTION, CLINICAL EFFECTIVENESS, AND OPTIMAL THERAPEUTIC RANGE. CHEST 1995;108:231S-246S. Performed By: #### L [id number] #### [facility] ([facility]) [address] [address] PROTHROMBIN TIME (PT) IN PPP BY COAGULATION ASSAY 14.7 Seconds Normal 12.3-14.8 [facility] Comment on above: Performed By: #### L [id number] #### [facility] ([facility]) [address] [address] BASIC METABOLIC PANELon 08-2 Anion gap [Moles/Vol] 13 mmol/L Normal 7-20 [facility] Comment on above: Performed By: #### L [id number] #### [facility] ([facility]) [address] [address] Calcium [Mass/Vol] 9.1 mg/dL Normal 8.6-10.3 [facility] Comment on above: Performed By: #### L [id number] #### [facility] ([facility]) [address] [address] Chloride [Moles/Vol] 101 mmol/L Normal 98-107 [facility] Comment on above: Performed By: #### L [id number] #### [facility] [address] [facility] [place] [address] [address] CO2 [Moles/Vol] 28 mmol/L Normal 21-31 [facility] Comment on above: Performed By: #### L [id number] #### [facility] [address] [address] Creatinine [Mass/Vol] 0.97 mg/dL Normal 0.70-1.30 [facility] Comment on above: Performed By: #### L [id number] #### [facility] ([facility]) [address] [place] [address] GLOMERULAR FILTRATION RATE ML/MIN/1.73 SQ M.PREDICTED 85.0 mL/min/1.73m*2 Normal >60.0 [facility] Comment on above: Result Comment: The [facility]???s estimated glomerular filtration rate (eGFR) will no longer include consideration of race in its calculation. The National Kid[employer] Foundation???s eGFR Task Force developed new recommendations for the estimation of the glomerular filtration rate in the [place] They recommend immediate implementation of the new equation refit without the race variable in all laboratories because the calculation does not include race. In addition to not including race in the calculation and reporting, it included diversity in its development, and has acceptable performance characteristics and potential consequences that do not disproportionately affect any one group of individuals. Performed By: #### L [id number] #### [facility] ([facility]) [address] [place] [address] Glucose [Mass/Vol] 159 mg/dL High 70-100 [facility] Comment on above: Performed By: #### L [id number] #### [facility] ([facility]) [address] [place] [address] Potassium [Moles/Vol] 3.5 mmol/L Normal 3.5-5.1 [facility] Comment on above: Performed By: #### L [id number] #### [facility] ([facility]) [address] [place] [address] Sodium [Moles/Vol] 138 mmol/L Normal 136-145 [facility] Comment on above: Performed By: #### L [id number] #### [facility] ([facility]) [address] [place] [address] Urea nitrogen [Mass/Vol] 22 mg/dL Normal 7-25 [facility] Comment on above: Performed By: #### L [id number] #### [facility] ([facility]) [address] [place] [address] UREA NITROGEN/CREATININE (MASS RATIO) IN SER/PLAS 22.7 Normal [facility] Comment on above: Performed By: #### L [id number] #### [facility] ([facility]) [address] [place] [address] CBC WITH AUTO DIFFERENTIALon 03-19-2023 Basophils (Bld) [#/Vol] 0.04 10*3/uL Normal 0.00-0.20 [facility] Comment on above: Performed By: #### L [id number] #### [facility] ([facility]) [address] [facility] [place] [address] Basophils/100 WBC (Bld) 0.5 % Normal 0.0-1.0 [facility] Comment on above: Performed By: #### L [id number] #### [facility] ([facility]) [address] [place] [address] Eosinophils (Bld) [#/Vol] 0.15 10*3/uL Normal 0.00-0.50 [facility] Comment on above: Performed By: #### L [id number] #### [facility] ([facility]) [address] [place] [address] Eosinophils/100 WBC (Bld) 1.7 % Normal 0.0-6.0 [facility] Comment on above: Performed By: #### L [id number] #### [facility] ([facility]) [address] [place] [address] Erythrocyte distribution width (RBC) [Ratio] 12.3 % Normal 11.5-15.0 [facility] Comment on above: Performed By: #### L [id number] #### [facility] ([facility]) [address] [place] [address] ERYTHROCYTE MEAN CORPUSCULAR HEMOGLOBIN CONCENTRATION (G/DL) BY AUTOMATED 34.3 g/dL Normal 32.0-35.0 [facility] Comment on above: Performed By: #### L [id number] #### [facility] [address] [facility] [place] [address] Hematocrit (Bld) [Volume fraction] 42.8 % Normal 39.0-55.0 [facility] Comment on above: Performed By: #### L [id number] #### [facility] ([facility]) [address] [place] [address] Hemoglobin (Bld) [Mass/Vol] 14.7 g/dL Normal 13.0-17.0 [facility] Comment on above: Performed By: #### L [id number] #### [facility] ([facility]) [address] [place] [address] Immature granulocytes (Bld) [#/Vol] 0.09 10*3/uL Normal 0.00-0.20 [facility] Comment on above: Performed By: #### L [id number] #### [facility] ([facility]) [address] [place] [address] Immature granulocytes/100 WBC (Bld) 1.0 % Normal 0.0-1.0 [facility] Comment on above: Performed By: #### L [id number] #### [facility] ([facility]) [address] [place] [address] Lymphocytes (Bld) [#/Vol] 2.02 10*3/uL Normal 1.20-4.00 [facility] Comment on above: Performed By: #### L [id number] #### [facility] ([facility]) [address] [place] [address] Lymphocytes/100 WBC (Bld) 23.3 % Normal 20.0-45.0 [facility] Comment on above: Performed By: #### L [id number] #### [facility] ([facility]) [address] [place] [address] MCH (RBC) [Entitic mass] 30.6 pg Normal 27.0-33.0 [facility] Comment on above: Performed By: #### L [id number] #### [facility] ([facility]) [address] [place] [address] MCV (RBC) [Entitic vol] 89.2 fL Normal 82.0-98.0 [facility] Comment on above: Performed By: #### L [id number] #### [facility] ([facility]) [address] [place] [address] Monocytes (Bld) [#/Vol] 0.71 10*3/uL Normal 0.10-1.00 [facility] Comment on above: Performed By: #### L [id number] #### [facility] ([facility]) [address] [place] [address] Monocytes/100 WBC (Bld) 8.2 % Normal 5.0-12.0 [facility] Comment on above: Performed By: #### L [id number] #### [facility] ([facility]) [address] [place] [address] Neutrophils (Bld) [#/Vol] 5.67 10*3/uL Normal 1.60-7.60 [facility] Comment on above: Performed By: #### L [id number] #### [facility] ([facility]) [address] [place] [address] Neutrophils/100 WBC (Bld) 65.3 % Normal 40.0-72.0 [facility] Comment on above: Performed By: #### L [id number] #### [facility] ([facility]) [address] [place] [address] NRBC (PER 100 WBCS) BY AUTOMATED COUNT 0.0 % Normal 0 [facility] Comment on above: Performed By: #### L [id number] #### [facility] ([facility]) [address] [place] [address] PLATELETS (10*3/UL) IN BLOOD AUTOMATED COUNT 219 10*3/uL Normal 150-400 [facility] Comment on above: Performed By: #### L [id number] #### [facility] [address] [place] [address] RBC (Bld) [#/Vol] 4.80 10*6/uL Normal 4.20-5.70 [facility] Comment on above: Performed By: #### L [id number] #### [facility] ([facility]) [address] [place] [address] WBC (Bld) [#/Vol] 8.68 10*3/uL Normal 4.00-10.60 [facility] Comment on above: Performed By: #### L [id number] #### [facility] ([facility]) [address] [place] [address] CTA AORTA AND BILATERAL ILIO FEMORAL RUNOFF W AND/OR WO IV CONTRASTon 03-19-2023 CTA AORTA AND BILATERAL ILIOFEMORAL RUNOFF W AND/OR WO IV CONTRAST CTA AORTA AND BILATERAL ILIOFEMORAL RUNOFF W AND/OR WO IV CONTRAST 03/20/2023 8:39 AM CLINICAL INDICATIONS: Right lower extremity clot TECHNIQUE: CT arteriogram and venogram of the abdomen and pelvis and bilateral lower extremity runoff were obtained with intravenous contrast. Multiplanar, MIP, and volume rendered 3-D reformats were generated on a separate workstation and reviewed to further define anatomy and possible pathology. All CT scans at this facility use dose modulation, iterative reconstruction, and/or weight based dosing when appropriate to reduce radiation dose to as low as reasonably achievable. COMPARISON: None. FINDINGS: The study is done with arterial and delayed venous phase imaging The abdominal aorta is well opacified on the arterial phase imaging There is some atherosclerotic change and tortuosity There is no visible irregular thrombus or dissection There is no visible abdominal aortic aneurysm The celiac and SMA and ZAHRA looks patent There is calcification and moderate stenosis at the left renal artery origin The right renal artery looks patent The common and external iliac arteries look patent The superficial and deep femoral arteries look patent The popliteal arteries look patent The infrapopliteal arteries look patent There is a dominant right posterior tibial artery There are codominant anterior and posterior tibial arteries on the left The venous phase imaging shows large DVT involving the right lower extremity from the level of the posterior tibial and peroneal veins, popliteal vein, superficial femoral vein, and common femoral vein region There is no visible clot in the iliac veins There is no visible clot in the IVC No splenomegaly No kidney mass No adrenal mass No pancreatic ductal dilatation or peripancreatic fluid or calcification No ductal dilatation or inflammatory change around the gallbladder. There is a gallstone There is no perihepatic fluid There are several liver lesions visible. These are more conspicuous on the delayed scan There is a somewhat pedunculated peripherally enhancing lesion in the tip of the left hepatic lobe There are several lesions in the inferior aspect of the right hepatic lobe which enhance at various phases Correlate for abnormal liver labs Suggest a follow-up liver MRI with contrast when appropriate in attempt to better characterize these and prove benign imaging characteristics There is a small hiatal hernia There is no hydronephrosis There is enlarged heterogeneous prostate without abnormal dilated bladder There is fat-containing right greater than left inguinal hernia There is moderate stool without perirectal fluid collection or signs of a bowel obstruction Mild diverticulosis No significant fluid in the paracolic gutters No sign of appendicitis No large lymph nodes No retroperitoneal bleed No basilar consolidation or effusions Slight elevation of right diaphragm IMPRESSION: No compression fracture or aggressive disc disease IMPRESSION: There is extensive right-sided deep vein thrombosis from the level of the common femoral vein through the peroneal and posterior tibial veins with asymmetric edema in the right lower extremity There is no visible clot in the iliac veins or IVC There is no visible clot in the SMV or portal vein/branches or hepatic/renal veins There is mild atherosclerotic change without visible dissection, irregular thrombus, or stenosis in the aorta, iliac and/or lower extremity arteries No left-sided DVT was seen There are numerous liver lesions which are show various asymmetric enhancement patterns on arterial and venous phase imaging, difficult to accurately characterize. Suggestion of a small cystic focus in the inferior aspect of the pancreatic neck without calcification or pancreatic duct dilatation Abdominal MRI with and without contrast is suggested when appropriate in attempt to further prove benign imaging characteristics Hiatal hernia Gallstone Enlarged prostate without dilated bladder hydronephrosis Electronically signed: Luis Burroughs. [facility] Comment on above: Order Comment: CTA a bdomen and pelvis with venous phase to evaluate DVT [facility] 03-19-2023 -- Attestation signed by May Gonzales MD at 03/20/2023 4:05 PM Patient seen with the PA. Has a ride to work extremity swelling and pain which is not significant or severe. He has the pain for about three days and the swelling for only one day. Ultrasound done which of possible partially occluded Tamera of thrombosis of the common femoral vein and thrombosis of the femoral vein's. We will obtain CT scan with Tamera Fais to evaluate for iliac vein of thrombosis. If any involvement of the proximal segments, including the Common femoro, or iliacs Vein will consider thrombectomy otherwise will be treated with anticoagulation. [facility] Vascular Surgery Service HISTORY AND PHYSICAL History Of Present Illness Arvind Rm is a 68 y.o. male presenting to [facility] as a direct admit from [facility] for extensive right lower extremity DVT. Patient reports undergoing thyroidectomy for malignant nodule on 03/10. States a couple days after the procedure he noted pain in his right foot. Patient reports beginning approximately 3-4 days ago pain moved form his foot to right calf increasing in severity and accompanied by right lower leg swelling. Pain and swelling worsened last night/this morning prompting presentation to [facility] ED. In ED patient had US of lower extremity finding occlusive thrombus within right posterior tibial vein, peroneal vein, popliteal vein, femoral vein and non-occlusive thrombus within the common femoral vein. Patient was started on heparin and decision was made to transfer to [facility]. Patient assessed on 6AB, endorses pain to right calf, and edema of right lower leg. Patient denies chest pain, shortness of breath, abdominal pain, nausea, vomiting, headache, or changes in vision. Past Medical History He has a past medical history of DVT of leg (deep venous thrombosis) ([facility]/HCC) (03/19/2023). Surgical History He has a past surgical history that includes Total thyroidectomy (03/10/2023). Social History He reports that he has never smoked. He has never used smokeless tobacco. No history on file for alcohol use and drug use. Family History No family history on file. Allergies Clindamycin and Shellfish derived Medications Medications Prior to Admission Medication Sig Dispense Refill Last Dose calcium carbonate (CALCIUM 600 ORAL) Take 600 mg by mouth in the morning. cholecalciferol (Vitamin D3) 5,000 Units tablet Take 1,000 Units by mouth in the morning. liothyronine (Cytomel) 25 mcg tablet Take 25 mcg by mouth in the morning and at bedtime. MAGNESIUM ORAL Take 250 mg by mouth 1 (one) time each day. multivitamin tablet Take 1 tablet by mouth in the morning. zinc sulfate (ZINC-15 ORAL) Take 15 mg by mouth in the morning. Review of Systems Constitutional: Negative for chills, fatigue and fever. Eyes: Negative for visual disturbance. Respiratory: Negative for cough, chest tightness and shortness of breath. Cardiovascular: Positive for leg swelling (unilateral swelling right lower extremity). Negative for chest pain and palpitations. Gastrointestinal: Negative for abdominal distention, abdominal pain, nausea and vomiting. Endocrine: Negative for cold intolerance and heat intolerance. Genitourinary: Negative for dysuria and hematuria. Musculoskeletal: Negative for neck pain and neck stiffness. Pain in right calf Skin: Negative for color change and wound. Neurological: Negative for dizziness, syncope, weakness, numbness and headaches. Psychiatric/Behavioral : Negative for agitation, confusion and hallucinations. Last Recorded Vitals Visit Vitals BP 119/67 Pulse 84 Temp 37.1 ???C (98.7 ???F) (Oral) Resp 16 Ht 1.626 m (5' 4 ) Wt 80.1 kg (176 lb 9.4 oz) Comment: nurse got it SpO2 97% BMI 30.31 kg/m??? Smoking Status Never BSA 1.9 m??? Physical Exam Constitutional: General: He is not in acute distress. Appearance: He is not toxic-appearing. HENT: Head: Normocephalic and atraumatic. Mouth/Throat: Mouth: Mucous membranes are moist. Pharynx: Oropharynx is clear. Eyes: Extraocular Movements: Extraocular movements intact. Pupils: Pupils are equal, round, and reactive to light. Cardiovascular: Rate and Rhythm: Normal rate and regular rhythm. Pulses: Dorsalis pedis pulses are 2+ on the right side and 2+ on the left side. Posterior tibial pulses are 2+ on the right side and 2+ on the left side. Pulmonary: Effort: Pulmonary effort is normal. No respiratory distress. Breath sounds: Normal breath sounds. Abdominal: General: Abdomen is flat. There is no distension. Palpations: Abdomen is soft. Tenderness: There is no abdominal tenderness. Musculoskeletal: General: Tenderness (inferior aspect of right calf tender to palpation) present. Right lower le (more content not included)... Normal [facility] MAGNESIUMon 03-19-2023 Magnesium [Mass/Vol] 2.0 mg/dL Normal 1.9-2.7 [facility] Comment on above: Performed By: #### L [id number] #### [facility] [address] [place] [address] PHOSPHORUSon 03-19-2023 Magnesium [Mass/Vol] 3.7 mg/dL Normal 2.5-5.0 [facility] Comment on above: Performed By: #### L [id number] #### [facility] ([facility] [address] [place] [address] PROTIME-INRon 03-19-2023 INR IN PPP BY COAGULATION ASSAY 1.19 High 0.90-1.10 [facility] Comment on above: Result Comment: ACCC P RECOMMENDED INR FOR WARFARIN THERAPY CONDITION INR PROPHYLAXIS OF VENOUS THROMBOSIS 2-3 (HIGH-RISK SURGERY) TREATMENT OF VENOUS THROMBOSIS 2-3 TREATMENT OF PULMONARY EMBOLISM 2-3 PREVENTION OF SYSTEMIC EMBOLISM: 2-3 ACUTE MYOCARDIAL INFARCTION TISSUE HEART VALVES VALVULAR HEART DISEASE ATRIAL FIBRILLATION RECURRENT SYSTEMIC EMBOLISM MECHANICAL HEART VALVE 2.5-3.5 FROM: ORAL ANTICOAGULANTS. MECHANISM OF ACTION, CLINICAL EFFECTIVENESS, AND OPTIMAL THERAPEUTIC RANGE. CHEST 1995;108:231S-246S. Performed By: #### L [id number] #### [facility] ([facility]) [address] [place] [address] PROTHROMBIN TIME (PT) IN PPP BY COAGULATION ASSAY 15.1 Seconds High 12.3-14.8 [facility] Comment on above: Performed By: #### L [id number] #### [facility] ([facility] [address] [place] [address] Consultation Noteon 01-30-20 Consultation Note [id number] 0CD:127 Normal [facility] US FNA W US GD ADD LESon US FNA W US GD ADD LES Begin Addendum #1 COLLECTED DATE/TIME: 11/11/2022 09:46 EDT Final Diagnosis Report for [facility] [place] [place] (A/B) RIGHT THYROID INFERIOR NODULE: FINE NEEDLE ASPIRATION: -ATYPIA OF UNDETERMINED SIGNIFICANCE, SEE NOTE. NOTE: Sparsely cellular aspirate comprised of follicular cells with architectural atypia. Molecular testing or a repeat aspirate may be helpful if clinically indicated. (C/D) LEFT THYROID NODULE; FINE NEEDLE ASPIRATION: -ATYPIA OF UNDETERMINED SIGNIFICANCE, SEE NOTE. NOTE: The specimen is moderately cellular and consists almost exclusively of Hurthle cells. There is no apparent increase in lymphoid cells. 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 But, Hurthle cell neoplasm cannot be entirely excluded. Clinical correlation is suggested. 11/14/[address] Thomas (). 11/14/2022 verified with Nica that report was present in office (). Original Report EXAMINATION: US THYROID FN ASP BX, US FNA W US GD ADD LES HISTORY: Thyroid nodule COMPARISON: Ultrasound thyroid 10/30/2022 TECHNIQUE: After obtaining informed consent, ultrasound-guided fine needle aspiration was performed in the usual sterile manner. FINDINGS: IMAGING: Ultrasound. BIOPSY NEEDLE: 25-gauge; 3 separate passes within right lobe nodule and left lobe nodule. LOCATION: Right lobe 3.3 cm nodule; left lobe 4.5 cm nodule. SPECIMEN TYPE: Cellular tissue. LOCAL ANESTHETIC: Buffered Xylocaine. COMPLICATIONS: None. LABORATORY: Prepared slide smears and washings for cell block evaluation. OTHER: Negative. PATHOLOGY: Pending. An addendum will be added when results are available. IMPRESSION: 1. Uneventful ultrasound guided fine needle aspiration (FNA). 2. Pathology results are pending. Normal [facility] Pathology Noteon 11-10-2022 Pathology Note [id number] 0CD:127 Normal [facility] Outside Colonoscopyon 2022 Outside Colonoscopy [id number] 0CD:127 Normal [facility] US THYROIDon 10-30-2022 US THYROID EXAMINATION: US THYROID HISTORY: Mass of neck COMPARISON: No relevant comparison available. TECHNIQUE: Sonographic images of the thyroid gland were obtained. FINDINGS: The right thyroid lobe measures 5.9 x 2.2 x 2.3 cm. Single dominant nodule Nodule 1:3.3 x 2.2 x 2.1 cm. Solid, hypoechoic, wide, lobular margins, no calcifications. TR 4 The thyroid isthmus measures 2.3 mm. Heterogeneous. No focal nodule. The left thyroid lobe measures 5.0 x 3.2 x 3.8 cm. Single dominant nodule. Nodule 1:4.5 x 3.1 x 3.4 cm. Solid, hypoechoic, wide, lobular margins, macrocalcifications. TR 5 IMPRESSION: Bilateral thyroid nodules. Fine-needle aspiration of 3.3 cm right and 4.5 cm left nodules is recommended TI-RADS: The [employer] TI-RADS committee's white paper recommendations for thyroid lesions classified as TR4 (moderately suspicious) are listed below: > 1.0 cm. Follow-up ultrasound in 1, 2, 3, and 5 years. > 1.5 cm. FNA. J. Am Nando Radiol 2017;14:587-595. TI-RADS: The [employer] TI-RADS committee's white paper recommendations for thyroid lesions classified as TR5 (highly suspicious) are listed below: > 0.5 cm. Annual ultrasound follow-up for up to 5 years. > 1.0 cm. FNA. J. Am Nando Radiol 2017;14:587-595. Electronically authenticated by: DIANA HERNANDEZ Date: 2022-10-30 14:53 Normal [facility] Consent for Procedure/Surger yon 10-23-2022 Consent for Procedure/Surgery [id number] 0CD:127 Normal [facility] Facesheeton 10-23-2022 Facesheet [id number]#1.0 0CD:127 Normal [facility] Pre-Certification Formon Pre-Certification Form [id number] 00CD:127 Normal [facility] Ambulatory Visit Summaryon 0 10-22-2022 Ambulatory Visit Summary ARVIND RM Cade :1955 Visit Date:10/22/2022 Ambulatory Visit Instructions Your Care Team Attending Physician - DAVIDA CHIN, Violeta Albert Primary Care Physician - Gael Thomas MD This Is Your Medications List multivitamin (Multi Vitamins oral tablet) Procedures Performed Colonoscopy. Discharge Vitals Heart Rate (Peripheral) 74 Respiratory Rate 16 Blood Pressure 122/80 Height 165.1 cm Height 65 in Weight 83.8 kg Weight 184.36 lb BMI 30.74 Medications What How Much When Instructions Unchanged multivitamin (Multi Vitamins oral tablet) 1 Tablets By Mouth Every day Medications and Immunizations Administered Not Given influenza virus vaccine, inactivated, Patient Refuses Allergies No Known Allergies No Known Medication Allergies Problems Ongoing - Any problem that you are currently receiving treatment for. BMI 30.0-30.9,adult Essential hypertension Family history of colon cancer Hyperlipidemia Normal [facility] Physician Referralon 023 Physician Referral [id number] 0CD:127 [facility] [place] PSA, FREE AND TOTAL RATIOon 08-23-2022 % Free PSA 21.0 % [facility] Comment on above: Result Comment: The table below lists the probability of prostate cancer for men with non-suspicious TATO results and total PSA between 4 and 10 ng/mL, by patient age (Catalona et al, ADRIANO 1998, 279:1542). % Free PSA 50-64 yr 65-75 yr 0.00-10.00% 56% 55% 10.01-15.00% 24% 35% 15.01-20.00% 17% 23% 20.01-25.00% 10% 20% >25.00% 5% 9% Please note: Catalje et al did not make specific recommendations regarding the use of percent free PSA for any other population of men. Performed By: #### P SAFREE #### [facility] [address] [address] [address] Remigio Han Prostate specific Ag [Mass/Vol] 3.1 ng/mL Normal 0.0-4.0 [facility] Comment on above: Result Comment: Cydney VARELA methodology. . According to the [employer], Serum PSA should decrease and remain at undetectable levels after radical prostatectomy. The AUA defines biochemical recurrence as an initial PSA value 0.2 ng/mL or greater followed by a subsequent confirmatory PSA value 0.2 ng/mL or greater. Values obtained with different assay methods or kits cannot be used interchangeably. Results cannot be interpreted as absolute evidence of the presence or absence of malignant disease. Performed By: #### P SAFREE #### [facility] [address] [place], [place] [address] Dr. Remigio Han PSA, Free 0.65 ng/mL Normal N/A [facility] Comment on above: Result Comment: Cydney bergman ECLRAYSHAWN methodology. Performed By: #### P SAFREE #### [facility] [address] [place], [place] [address] Dr. Remigio Han PSA, FREE AND TOTAL RATIOon 02-21-2022 % Free PSA 24.9 % Normal [facility] Comment on above: Result Comment: The table below lists the probability of prostate cancer for men with non-suspicious TATO results and total PSA between 4 and 10 ng/mL, by patient age (Catalona et al, ADRIANO 1998, 279:1542). % Free PSA 50-64 yr 65-75 yr 0.00-10.00% 56% 55% 10.01-15.00% 24% 35% 15.01-20.00% 17% 23% 20.01-25.00% 10% 20% >25.00% 5% 9% Please note: Shaheed et al did not make specific recommendations regarding the use of percent free PSA for any other population of men. Performed By: #### P SAFREE #### [facility] [address] [place] [address] Dr. Remigio Han Prostate specific Ag [Mass/Vol] 4.5 ng/mL Critically high 0.0-4.0 [facility] Comment on above: Result Comment: Cydney GARRIDOIA methodology. . According to the [employer], Serum PSA should decrease and remain at undetectable levels after radical prostatectomy. The AUA defines biochemical recurrence as an initial PSA value 0.2 ng/mL or greater followed by a subsequent confirmatory PSA value 0.2 ng/mL or greater. Values obtained with different assay methods or kits cannot be used interchangeably. Results cannot be interpreted as absolute evidence of the presence or absence of malignant disease. Performed By: #### P SAFREE #### [facility] [address] [place] [address] Dr. Remigio Han PSA, Free 1.12 ng/mL Normal N/A [facility] Comment on above: Result Comment: Cydney VARELA methodology. Performed By: #### P SAFREE #### [facility] [address] [place] [address] Dr. Remigio Han INSULINon 02-20-2022 Insulin 14.7 uIU/mL Normal 2.6-24.9 [facility] Comment on above: Performed By: #### I NSULIN #### [facility] [address] [place] [address] Dr. Remigio Han CBC AUTO DIFFon 02-19-2022 BASO # 0.0 103/ul Normal 0.0-0.1 [facility] Comment on above: Performed By: #### C BC #### [facility] [address] [place] [address] Dr. Remigio Han Basophils/100 WBC (Bld) 0.5 % Normal 0.2-2.0 [facility] Comment on above: Performed By: #### C BC #### [facility] [address] [place] [address] Dr. Remigio Han EO # 0.1 103/ul Normal 0.0-0.7 [facility] Comment on above: Performed By: #### C BC #### [facility] [address] [place] [address] Dr. Remigio Han Eosinophils/100 WBC (Bld) 1.5 % Normal 0.9-7.0 [facility] Comment on above: Performed By: #### C BC #### [facility] [address] [place] [address] Dr. Remigio Han Erythrocyte distribution width (RBC) [Ratio] 13.0 % Normal 11.0-15.0 [facility] Comment on above: Performed By: #### C BC #### [facility] [address] [place] [address] Dr. Remigio Han Hematocrit (Bld) [Volume fraction] 48.4 % Normal 42.0-54.0 [facility] Comment on above: Performed By: #### C BC #### [facility] [address] [place] [address] Dr. Remigio Han Hemoglobin (Bld) [Mass/Vol] 16.6 g/dL Normal 14.0-18.0 [facility] Comment on above: Performed By: #### C BC #### [facility] [address] [place] [address] Dr. Remigio Han IG # 0.02 10e3/ul Normal 0.00-0.03 [facility] Comment on above: Performed By: #### C BC #### [facility] [address] [place] [address] Dr. Remigio Han IG % 0.4 % Normal 0.0-0.5 [facility] Comment on above: Performed By: #### C BC #### [facility] [address] [place] [address] Dr. Remigio aHn LYMPH # 1.6 103/ul Normal 1.2-3.8 [facility] Comment on above: Performed By: #### C BC #### [facility] [address] [place] [address] [address] Remigio Han Lymphocytes/100 WBC (Bld) 30.0 % Normal 20.5-60.0 [facility] Comment on above: Performed By: #### C BC #### [facility] [address] [address] [address] Remigio Han MANUAL DIFF REQ NO Normal [facility] Comment on above: Performed By: #### C BC #### [facility] [address] [place] [address] Dr. Remigio Han MCH (RBC) [Entitic mass] 30.2 pg Normal 25.9-34.0 [facility] Comment on above: Performed By: #### C BC #### [facility] [address] [place] [address] Dr. Remigio Han MCHC (RBC) [Mass/Vol] 34.3 g/dL Normal 29.9-35.2 [facility] Comment on above: Performed By: #### C BC #### [facility] [address] [place] [address] Dr. Remigio Han MCV (RBC) [Entitic vol] 88.2 fL Normal 80.0-94.0 [facility] Comment on above: Performed By: #### C BC #### [facility] [address] [place] [address] Dr. Remigio Han MONO # 0.4 103/ul Normal 0.3-0.8 [facility] Comment on above: Performed By: #### C BC #### [facility] [address] [place] [address] Dr. Remigio Han Monocytes/100 WBC (Bld) 8.1 % Normal 1.7-12.0 [facility] Comment on above: Performed By: #### C BC #### [facility] [address] [place] [address] Dr. Remigio Han NEUT # 3.3 103/ul Normal 1.4-6.5 [facility] Comment on above: Performed By: #### C BC #### [facility] [address] [address] [address] Remigio Han Neutrophils/100 WBC (Bld) 59.5 % Normal 43.0-75.0 [facility] Comment on above: Performed By: #### C BC #### [facility] [address] [place] [address] Dr. Remigio Han Platelet mean volume (Bld) [Entitic vol] 9.8 fL Normal 9.5-13.5 [facility] Comment on above: Performed By: #### C BC #### [facility] [address] [address] [address] Remigio Han PLT 217 103/ul Normal 150-450 [facility] Comment on above: Performed By: #### C BC #### [facility] [address] [place] [address] Dr. Remigio Han RBC 5.49 106/ul Normal 4.70-6.10 [facility] Comment on above: Performed By: #### C BC #### [facility] [address] [place] [address] Dr. Remigio Han WBC 5.5 103/ul Normal 4.0-11.0 [facility] Comment on above: Performed By: #### C BC #### [facility] [address] [place] [address] Dr. Remigio Han GLYCOHEMOGLOBIN A1Con 2021 ADA RECOMMENDATION SEE BELOW Normal [facility] Comment on above: Result Comment: ADA RECOMMENDED LIMIT 4.0 - 6.0 ADA THERAPEUTIC TARGET < 7.0 ACTION SUGGESTED > 7.0 Performed By: #### A 1C #### [facility] [address] [place] [address] Dr. Remigio Han Glucose [Mass/Vol] 103 mg/dL Normal [facility] Comment on above: Performed By: #### A 1C #### [facility] [address] [place] [address] Dr. Remigio Han HbA1c (Bld) [Mass fraction] 5.2 % Normal 4.5-6.2 [facility] Comment on above: Performed By: #### A 1C #### [facility] [address] [place], [place] [address] Dr. Reimgio Han LIPID PROFILEon 02-19-2022 CHOL-HDL RATIO NORM SEE BELOW Normal [facility] Comment on above: Result Comment: 3.3 - 4.4 LOW RISK 4.4 - 7.1 AVERAGE RISK 7.1 - 11.0 MODERATE RISK >11.0 HIGH RISK Performed By: #### L IPID, CMP ####[facility] [address] [place] [id number]. Remigio Han Cholesterol [Mass/Vol] 259 mg/dL Critically high <=200 [facility] Comment on above: Performed By: #### L IPID, CMP ####[facility] [address] [place] [id number]. Remigio Han Cholesterol in HDL [Mass/Vol] 62 mg/dL Critically high 40-60 [facility] Comment on above: Performed By: #### L IPID, CMP ####[facility] [address] [place] [id number]. Remigio Han Cholesterol in LDL [Mass/Vol] 171.8 mg/dL Normal [facility] Comment on above: Performed By: #### L IPID, CMP ####[facility] [address] [place] [id number]. Remigio Han Cholesterol.total/Ch olesterol in HDL [Mass ratio] 4.2 {ratio} Normal [facility] Comment on above: Performed By: #### L IPID, CMP ####[facility] [address] [place] [id number]. Remigio Han HDL NORMAL > or = 60 mg/dl - LO W CARDIOVASCULAR RISK <40 mg/dl - HIGH CARDIOVASCULAR RISK Normal [facility] Comment on above: Performed By: #### L IPID, CMP ####[facility] [address] [place] [id number]. Remigio Han LDL CALC NORMAL SEE BELOW Normal [facility] Comment on above: Result Comment: <100 mg/dl OPTIMAL 100 - 129 mg/dl NEAR OR ABOVE OPTIMAL 130 - 159 mg/dl BORDERLINE HIGH 160 - 189 mg/dl HIGH >190 mg/dl VERY HIGH Performed By: #### L IPID, CMP ####[facility] [id number] [place] [id number]. Remigio Han Triglyceride [Mass/Vol] 126 mg/dL Normal <=150 [facility] Comment on above: Performed By: #### L IPID, CMP ####[facility] [address] [place] [id number]. Remigio Han VLDL CALC 25.2 mg/dL Normal [facility] Comment on above: Performed By: #### L IPID, CMP ####[facility] [address] [place] [id number]. Remigio Han PROF 14(COMP METB)on 022 Albumin [Mass/Vol] 3.9 g/dL Normal 3.4-5.0 [facility] Comment on above: Performed By: #### L IPID, CMP #### [facility] [address] [place] [address] [address] Remigio aHn Albumin/Globulin [Mass ratio] 1.1 {ratio} Normal [facility] Comment on above: Performed By: #### L IPID, CMP #### [facility] [address] [place] [address] [address] Remigio Han ALP [Catalytic activity/Vol] 65 U/L Normal 46-116 [facility] Comment on above: Performed By: #### L IPID, CMP #### [facility] [address] [place] [address] [address] Remigio Han ALT [Catalytic activity/Vol] 25 U/L Normal 16-63 [facility] Comment on above: Performed By: #### L IPID, CMP #### [facility] [address] [place] [address] [address] Remigio Han Anion gap [Moles/Vol] 13.1 mmol/L Normal [facility] Comment on above: Performed By: #### L IPID, CMP #### [facility] [address] [place] [address] [address] Remigio Han AST [Catalytic activity/Vol] 15 U/L Normal 15-37 [facility] Comment on above: Performed By: #### L IPID, CMP #### [facility] [address] [place] [address] Dr. Remiigo Han Bilirubin [Mass/Vol] 0.5 mg/dL Normal 0.2-1.0 [facility] Comment on above: Performed By: #### L IPID, CMP #### [facility] [address] [place] [address] Dr. Remigio Han Calcium [Mass/Vol] 9.5 mg/dL Normal 8.5-10.1 [facility] Comment on above: Performed By: #### L IPID, CMP #### [facility] [address] [place] [address] Dr. Remigio Han Chloride [Moles/Vol] 104 mmol/L Normal 98-107 [facility] Comment on above: Performed By: #### L IPID, CMP #### [facility] [address] [place] [address] Dr. Remigio Han CO2 [Moles/Vol] 28.3 mmol/L Normal 21.0-32.0 [facility] Comment on above: Performed By: #### L IPID, CMP #### [facility] [address] [place] [address] Dr. Remigio Han Creatinine [Mass/Vol] 1.05 mg/dL Normal 0.70-1.30 [facility] Comment on above: Performed By: #### L IPID, CMP #### [facility] [address] [place] [address] Dr. Remigio Han EGFR-AF PERUVIAN >60 Normal >=60 [facility] Comment on above: Performed By: #### L IPID, CMP #### [facility] [address] [place] [address] Dr. Remigio Han EGFR-NON AF PERUVIAN >60 Normal >=60 [facility] Comment on above: Performed By: #### L IPID, CMP #### [facility] [address] [place] [address] Dr. Remigio Han Globulin (S) [Mass/Vol] 3.4 g/dL Normal [facility] Comment on above: Performed By: #### L IPID, CMP #### [facility] [address] [place] [address] Dr. Remigio Han Glucose [Mass/Vol] 93 mg/dL Normal 74-106 [facility] Comment on above: Performed By: #### L IPID, CMP #### [facility] [address] [place] [address] Dr. Remigio Han Potassium [Moles/Vol] 4.4 mmol/L Normal 3.5-5.1 [facility] Comment on above: Performed By: #### L IPID, CMP #### [facility] [address] [place] [address] Dr. Remigio Han Protein [Mass/Vol] 7.3 g/dL Normal 6.4-8.2 [facility] Comment on above: Performed By: #### L IPID, CMP #### [facility] [address] [place] [address] Dr. Remigio Han Sodium [Moles/Vol] 141 mmol/L Normal 136-145 [facility] Comment on above: Performed By: #### L IPID, CMP #### [facility] [address] [place] [address] Dr. Remigio Han Urea nitrogen [Mass/Vol] 25.0 mg/dL Critically high 7.0-18.0 [facility] Comment on above: Performed By: #### L IPID, CMP #### [facility] [address] [place] [address] Dr. Remigio Han Urea nitrogen/Creatinine [Mass ratio] 23.8 mg/mg Normal [facility] Comment on above: Performed By: #### L IPID, CMP #### [facility] [address] [place] [address] Dr. Remigio Han Vital Signs Date Time Vital Sign Value Performing Clinician Facility 08-27-2023 09:37-0500 Body temperature 97.5 [degF] HARMONY Guillermo MD Work Phone: [facility] 08-27-2023 09:37-0500 Body weight 86.4 kg HARMONY Guillermo MD Work Phone: [facility] 08-27-2023 09:37-0500 Diastolic blood pressure 80 mm[Hg] HARMONY Guillermo MD Work Phone: [facility] 08-27-2023 09:37-0500 Heart rate 70 /min HARMONY Guillermo MD Work Phone: [facility] 08-27-2023 09:37-0500 Respiratory rate 16 /min HARMONY Guillermo MD Work Phone: [facility] 08-27-2023 09:37-0500 SaO2% (BldA) [Mass fraction] 98 % HARMONY Guillermo MD Work Phone: [facility] 08-27-2023 09:37-0500 Systolic blood pressure 139 mm[Hg] HARMONY Guillermo MD Work Phone: [facility] 06-17-2023 10:19-0500 Body temperature 96.69 [degF] HARMONY Guillermo MD Work Phone: [facility] 06-17-2023 10:19-0500 Body weight 82.1 kg HARMONY Guillermo MD Work Phone: [facility] 06-17-2023 10:19-0500 Diastolic blood pressure 86 mm[Hg] HARMONY Guillermo MD Work Phone: [facility] 06-17-2023 10:19-0500 Heart rate 70 /min HARMONY Guillermo MD Work Phone: [facility] 06-17-2023 10:19-0500 Respiratory rate 18 /min HARMONY Guillermo MD Work Phone: [facility] 06-17-2023 10:19-0500 SaO2% (BldA) [Mass fraction] 98 % HARMONY Guillermo MD Work Phone: [facility] 06-17-2023 10:19-0500 Systolic blood pressure 143 mm[Hg] HARMONY Guillermo MD Work Phone: [facility] 06-02-2023 08:43-0500 Body temperature 97.39 [degF] [facility] [place] Work Phone: [facility] 06-02-2023 08:43-0500 Diastolic blood pressure 84 mm[Hg] [facility] [place] Work Phone: [facility] 06-02-2023 08:43-0500 Heart rate 78 /min [facility] [place] Work Phone: [facility] 06-02-2023 08:43-0500 Respiratory rate 16 /min [facility] [place] Work Phone: [facility] 06-02-2023 08:43-0500 SaO2% (BldA) [Mass fraction] 99 % [facility] [place] Work Phone: [facility] 06-02-2023 08:43-0500 Systolic blood pressure 132 mm[Hg] [facility] [place] Work Phone: [facility] 06-01-2023 08:41-0500 Body temperature 97 [degF] [facility] [place] Work Phone: [facility] 06-01-2023 08:41-0500 Body weight 80.29 kg [facility] [place] Work Phone: [facility] 06-01-2023 08:41-0500 Diastolic blood pressure 86 mm[Hg] [facility] [place] Work Phone: [facility] 06-01-2023 08:41-0500 Heart rate 68 /min [facility] [place] Work Phone: [facility] 06-01-2023 08:41-0500 Respiratory rate 16 /min [facility] [place] Work Phone: [facility] 06-01-2023 08:41-0500 SaO2% (BldA) [Mass fraction] 99 % [facility] [place] Work Phone: [facility] 06-01-2023 08:41-0500 Systolic blood pressure 133 mm[Hg] [facility] [place] Work Phone: [facility] 04-28-2023 09:47-0400 Diastolic blood pressure 74 mm[Hg] MD Gael Thomas Work Phone: [facility] 04-28-2023 09:47-0400 Heart rate 78 /min MD Gael Thomas Work Phone: [facility] 04-28-2023 09:47-0400 Respiratory rate 20 /min MD Gael Thomas Work Phone: [facility] 04-28-2023 09:47-0400 SaO2% (BldA) [Mass fraction] 97 % MD Gael Thomas Work Phone: [facility] 04-28-2023 09:47-0400 Systolic blood pressure 126 mm[Hg] MD Gael Thomas Work Phone: [facility] 04-28-2023 09:32-0400 Inhaled oxygen flow rate 2 L/min MD Gael Thomas Work Phone: [facility] 04-28-2023 07:07-0400 Body height 166.37 cm MD Gael Thomas Work Phone: [facility] 04-28-2023 07:07-0400 Body weight 80.73 kg MD Gael Thomas Work Phone: [facility] 04-01-2023 12:33-0400 Body height 166.4 cm HARMONY Guillermo MD Work Phone: [facility] 04-01-2023 12:33-0400 Body temperature 98.01 [degF] HARMONY Guillermo MD Work Phone: [facility] 04-01-2023 12:33-0400 Body weight 78.93 kg HARMONY Guillermo MD Work Phone: [facility] 04-01-2023 12:33-0400 Diastolic blood pressure 78 mm[Hg] HARMONY Guillermo MD Work Phone: [facility] 04-01-2023 12:33-0400 Heart rate 86 /min HARMONY Guillermo MD Work Phone: [facility] 04-01-2023 12:33-0400 Respiratory rate 16 /min HARMONY Guillermo MD Work Phone: [facility] 04-01-2023 12:33-0400 SaO2% (BldA) [Mass fraction] 97 % HARMONY Guillermo MD Work Phone: [facility] 04-01-2023 12:33-0400 Systolic blood pressure 115 mm[Hg] HARMONY Guillermo MD Work Phone: [facility] 10-22-2022 15:26-0400 Blood Pressure Location Violeta NILL [facility] 10-22-2022 15:26-0400 Diastolic blood pressure 80 mm[Hg] Violeta NILL [facility] 10-22-2022 15:26-0400 Heart rate 74 /min Violeta NILL [facility] 10-22-2022 15:26-0400 Respiratory rate 16 /min Violeta NILL [facility] [place] 10-22-2022 15:26-0400 Systolic blood pressure 122 mm[Hg] Violeta NILL [facility] [place] Encounters Encounter Date Encounter Type Care Provider Facility Start: 09-04-2023 ambulatory BRIAN Epps [facility] Start: 08-27-2023 Refill Azam calderon MD Work Phone: [facility] Comment on above: Med Change Request Start: 08-27-2023 End: 08-27-2023 ambulatory GAEL THOMAS Facility:[facility] Start: 08-27-2023 End: 08-27-2023 Patient encounter procedure Azam Guillermo MD Work Phone: [facility]cology Comment on above: Thyroid cancer (HCC) (Primary Dx) Start: 08-26-2023 End: 08-27-2023 ambulatory LISS JI [facility] Start: 08-19-2023 End: 08-19-2023 ambulatory JOEY Elder TIMMIS Not Available Start: 08-18-2023 End: 08-18-2023 ambulatory GAEL THOMAS Facility:[facility] Start: 07-15-2023 End: 07-15-2023 ambulatory JOEY H TIMMIS Not Available Start: 07-01-2023 End: 07-01-2023 ambulatory JOEY H TIMMIS Not Available Start: 06-17-2023 End: 06-17-2023 ambulatory GAEL THOMAS Facility:[facility] Start: 06-17-2023 End: 06-17-2023 Patient encounter procedure Azam Guillermo MD Work Phone: Radiation Oncology Comment on above: Thyroid cancer (HCC) (Primary Dx) Start: 06-03-2023 End: 06-03-2023 ambulatory GAEL THOMAS Facility:[facility] Start: 06-03-2023 End: 06-03-2023 ambulatory Temo Guillermo Facility:[facility] Start: 06-03-2023 End: 06-03-2023 Patient encounter procedure Azam Guillermo MD Work Phone: Radiation Oncology Comment on above: Thyroid cancer (HCC) (Primary Dx) Start: 06-03-2023 End: 06-03-2023 ambulatory MD Gael Thomas Work Phone: [facility] Work Phone: Start: 06-03-2023 End: 06-03-2023 Patient encounter procedure MD Gael Thomas Work Phone: [facility] Work Phone: Start: 06-02-2023 End: 06-02-2023 ambulatory GAEL THOMAS Facility:[facility] Start: 06-02-2023 End: 06-02-2023 Patient encounter procedure [facility] [place] Work Phone: Radiation Oncology Comment on above: Thyroid cancer (HCC) (Primary Dx) Start: 06-01-2023 End: 06-01-2023 ambulatory GAEL THMOAS Facility:[facility] Start: 06-01-2023 End: 06-01-2023 Patient encounter procedure [facility] [place] Work Phone: Radiation Oncology Comment on above: Thyroid cancer (HCC) (Primary Dx) Start: 05-22-2023 ambulatory [facility] Start: 05-08-2023 Refill G Oracio calderon MD Work Phone: Radiation Oncology Comment on above: Refill Request Start: 04-28-2023 End: 04-28-2023 ambulatory Imad Asaad Facility:[facility] Start: 04-28-2023 End: 04-28-2023 Admission to same day surgery center MD Gael Thomas Work Phone: [facility] Work Phone: Start: 04-28-2023 End: 04-28-2023 ambulatory MD Gael Thomas Work Phone: [facility] Work Phone: Start: 04-21-2023 End: 04-21-2023 ambulatory Imad Asaad Other [employer] Other Start: 04-21-2023 Telephone encounter Imad Asaad [facility] Start: 04-09-2023 Patient encounter procedure [facility] Provider [facility] Department Start: 04-02-2023 Orders Only G Oracio calderon MD Work Phone: Radiation Oncology Start: 04-01-2023 End: 04-01-2023 ambulatory GAEL THOMAS Facility:[facility] Start: 04-01-2023 End: 04-01-2023 Patient encounter procedure [facility] [place] Work Phone: Radiation Oncology Comment on above: Thyroid cancer (HCC) (Primary Dx) Start: 03-20-2023 Evaluation and management of inpatient ANNALISE MCCRAY [facility] Start: 03-19-2023 Evaluation and management of inpatient [facility] Start: 03-19-2023 Evaluation and management of inpatient GLEN DUPONT [facility] Start: 03-19-2023 End: 03-20-2023 Evaluation and management of inpatient [facility] Start: 11-18-2022 ambulatory Violeta TINOCO Facility : [place] Start: 11-11-2022 End: 11-11-[address] GAEL THOMAS . Facility:[facility] Start: 11-05-2022 End: 11-06-[address] VIOLETA TINOCO . Facility:[facility] Start: 10-30-2022 End: 10-31-[address] GAEL THOMAS . Facility: Start: 10-22-2022 End: 10-23-2022 ambulatory [facility] Start: 10-22-2022 End: 10-22-2022 Patient encounter procedure Violeta TINOCO [facility] Start: 09-17-2022 ambulatory Violeta TINOCO Facility : [facility] Start: 08-22-2022 End: 08-23-[address] GAEL THOMAS . Facility: Start: 02-19-2022 End: 02-20-[address] GAEL THOMAS . Facility: Procedures Date Procedure Procedure Detail Performing Clinician Start: 04-28-2023 Colonoscopy MD Gael Thomas Work Phone: Start: 04-01-2023 Assay of thyroglobulin Azam Guillermo MD Work Phone: Start: 02-19-[address] TOBIN THOMAS . Comment on above: Performed By: #### [facility] ####[address] [id number] Han Colonoscopy Violeta TINOCO Plan of Treatment Date Care Activity Detail Author Start: 02-19-2027 Prostate Cancer Screening Discussion Prostate Cancer Screening Discussion [facility] Start: 02-19-2027 Prostate specific antigen measurement Prostate Cancer Screening Discussion [facility] Start: 03-20-2026 Diabetes Screening Diabetes Screenin g [facility] Start: 12-26-2023 End: 03-26-2024 THYROGLOBULIN BY LC-MS/MS, SERUM OR PLASMA, FOR THYROGLOBULIN ANTIBODY INTERFERENCE THYROGLOBULIN BY LC-MS/MS, SERUM OR PLASMA, FOR THYROGLOBULIN ANTIBODY INTERFERENCE Lab Routine Thyroid cancer (HCC) Expected: 12/26/2023, Expires: 03/26/2024 [facility] Work Phone: Comment on above: Expected: 12/26/2023 , Expires: 03/26/2024 Start: 12-26-2023 End: 03-26-2024 Thyrotropin [Units/volume] in Serum or Plasma TSH BLD Lab Routine Thyroid cancer (HCC) Expected: 12/26/2023, Expires: 03/26/2024 [facility] Work Phone: Comment on above: Expected: 12/26/2023 , Expires: 03/26/2024 Start: 12-26-2023 End: 03-26-2024 Thyroxine (T4) [Mass/volume] in Serum or Plasma T4/THYROXINE BLOOD Lab Routine Thyroid cancer (HCC) Expected: 12/26/2023, Expires: 03/26/2024 [facility] Work Phone: Comment on above: Expected: 12/26/2023 , Expires: 03/26/2024 Start: 08-27-2023 End: 11-26-2023 Thyrotropin [Units/volume] in Serum or Plasma TSH BLD Lab Routine Thyroid cancer (HCC) Expected: 08/27/2023 (Approximate), Expires: 11/26/2023 [facility] Work Phone: Comment on above: Expected: 08/27/2023 (Approximate), Expires: 11/26/2023 Start: 08-27-2023 End: 11-26-2023 Thyroxine (T4) [Mass/volume] in Serum or Plasma T4/THYROXINE BLOOD Lab Routine Thyroid cancer (HCC) Expected: 08/27/2023 (Approximate), Expires: 11/26/2023 [facility] Work Phone: Comment on above: Expected: 08/27/2023 (Approximate), Expires: 11/26/2023 Start: 07-27-2023 Advance Directive Discussion Advance Directive Discussion [facility] Start: 07-27-2023 Depression Assessment Depression Ass essment [facility] Start: 06-10-2023 Radionuclide localization of tumor, whole body NM thyroid ca whole body [facility] Start: 06-03-2023 Oral radionuclide therapy NM tx radpharm oral [facility] Start: 04-28-2023 [facility] Start: 04-01-2023 End: 06-01-2023 THYROGLOBULIN BY MASS SPECTROMETRY THYROGLOBULIN BY MASS SPECTROMETRY Lab Routine Thyroid cancer (HCC) Expected: 04/01/2023, Expires: 06/01/2023 [facility] Work Phone: Comment on above: Expected: 04/01/2023 , Expires: 06/01/2023 Start: 03-27-2023 Covid-19 Vaccine ( season) Covid-19 Vaccine ( season) [facility] Start: 03-27-2023 Influenza vaccination C [facility] Start: 07-27-2022 ADVANCE DIRECTIVE DISCUSSION ADVANCE DIRECTIVE DISCUSSION [facility] Start: 07-27-2022 DEPRESSION ASSESSMENT DEPRESSION ASS ESSMENT [facility] Start: 05-19-2022 COVID-19 VACCINE (5 - Pfizer series) COVID-19 VACCINE (5 - Pfizer series) [facility] Start: 2020 Pneumococcal Vaccine : 65+ (1 - PCV) Pneumococcal Vaccine: 65+ (1 - PCV) [facility] Start: 2020 Pneumococcal Vaccine : 65+ (1 of 1 - PCV) Pneumococcal Vaccine: 65+ (1 of 1 - PCV) [facility] Start: 2020 PNEUMOCOCCAL: 65+ (1 - PCV) PNEUMOCOCCAL: 65+ (1 - PCV) [facility] Start: 2015 RSV Vaccine (1 - 1-d ose 60+ series) RSV Vaccine (1 - 1-dose 60+ series) [facility] Start: 2010 PROSTATE CANCER SCREENING DISCUSSION PROSTATE CANCER SCREENING DISCUSSION [facility] Start: 2005 SHINGRIX VACCINE (1 of 2) SHINGRIX VACCINE (1 of 2) [facility] Start: 2000 COLOGUARD (FIT-DNA) COLOGUARD (FIT-D NA) [facility] Start: 2000 Colonoscopy COLONOSCOPY [facility] Start: 2000 COLORECTAL CANCER SCREENING COLORECTAL CANCER SCREENING [facility] Start: [address] COLONOGRAPHY [facility] Start: 2000 DIABET[facility]EN [facility] Start: 2000 Diabetes Screening Diabetes Screenin g [facility] Start: 2000 FECAL OCCULT BLOOD FECAL OCCULT BLOO D [facility] Start: 2000 Screening for malign ant neoplasm of colon [facility] Start: 2000 SIGMOIDOSCOPY SIGMOIDOSCOPY [facility] Start: 1990 Lipid 1996 panel - S john or Plasma Lipid Screening [facility] Start: 1990 Lipid panel Lipid Screening [facility] Start: 1990 LIPID SCREEN LIPID SCREEN [facility] Start: 1974 Urine microalbumin profile [facility] Start: 1973 HEPATITIS C SCREENING HEPATITIS C [facility] Start: 1973 Hepatitis C screening Hepatitis C [facility] Start: 1955 ABDOMINAL AORTIC ANEURYSM SCREENING ABDOMINAL AORTIC ANEURYSM SCREENING [facility] Start: 1955 Abdominal aortic aneurysm screening Abdominal Aortic Aneurysm Screening [facility] Patient Education Colon polyps Diverticulosis Hemorrhoids (DC) [facility] Work Phone: End: 04-30-2024 Rp therapy oral administration NM THERAPY THYROID I-131 Radiology Routine Thyroid cancer (HCC) 1 Occurrences starting 04/01/2023 until 04/30/2024 [facility] Work Phone: Comment on above: 1 Occurrences starti ng 04/01/2023 until 04/30/2024 [facility] Immunizations Immunization Date Immunization Notes Care Provider Marsha moreno 03-24-2022 SARS-CoV-2 mRNA (kiwpegkafbj-tvml-hyml ose) vaccine Violeta TINOCO [facility] [place] 10-16-2021 SARS-CoV-2 mRNA (jbifagvuaxb-iwzx-qnvi ose) vaccine Violeta TINOCO [facility] [facility] 04-17-2021 SARS-CoV-2 (COVID-19 ) mRNA BNT-162b2 vax Violeta [facility]EZCUAL [facility] 03-27-2021 SARS-CoV-2 (COVID-19 ) mRNA BNT-162b2 vax Violeta [facility] NEGATED: Highlighted row has not occurred!10-22-2022 influenza virus vaccine, unspecified formulation Violeta [facility] Payers Date Payer Category Payer Self-pay 2020 Medicare [employer] MEDICARE HU[employer] MEDICARE PPO [id number] 2020-Present [phone] [address] [address] [place] [address] PPO [id number] 1959 Medicare [id number] 1955 Unknown [id number] 1955 Unknown [id number] [id number] 1955 Unknown [id number] 2..[id number] 1955 Unknown [id number] [id number]3 1955 Unknown [id number] 2.16.840.1.942163.3.579.2.593 1955 Unknown [id number] 2.16.840.1.565794.3.579.2.727 1955 Unknown [id number] 2.16.840.1.710362.3.579.2.727 1955 Unknown [id number] 2.16.840.1.263358.3.579.2.727 1955 Unknown [id number] 2.16.840.1.530588.3.579.2.727 1955 Unknown [id number] 2.16.840.1.583901.3.579.2.125 9 1955 Unknown [id number] 2.16.840.1.093370.3.579.2.125 9 1955 Unknown [id number] 2.16.840.1.807009.3.579.2.125 9 Unknown [id number] [id number] Unknown [id number] Social History Date Type Detail Facility Start: 10-22-2022 End: 04-01-2023 Tobacco smoking status Ex-smoker (finding) [facility] Tobacco smoking status Never [facility] Start: 04-01-2023 End: 06-17-2023 Sex Assigned At Male Chucky Rader [facility] End: 07-27-1982 History of tobacco use Current smoker [facility] End: 07-27-1982 History of tobacco use Cigarette Smoker [facility] Start: 04-01-2023 End: 06-17-2023 Cigarettes smoked current (pack per day) - Reported 0.5 [facility] Start: 04-01-2023 Tobacco use and exposure Smokeless tobacco non-user [facility] Start: 04-01-2023 End: 08-27-2023 Alcohol intake Ex-drinker (finding) [facility] Start: 1955 Sex Assigned At Not on file C [facility] Start: 1955 Sex Assigned At Male [place] [facility] Goals Date Patient Goal Desired Activity /State Functional Status Date Assessment Result Facility 10-22-2022 Functional Status N/A [facility] Clinical Notes 10-22-2022 to 09-04-2023 Azam Guillermo MD - 08/27/2023 9:42 AM Azam Good MD - 06/17/2023 10:16 AM Azam Good MD - 06/03/2023 1:07 PM EST Note Date & Type Note Facility 09-04-2023 Note Subjective Patient ID: Arvind Rm is a 68 y.o. male who presents for No chief complaint on file.. Arvind is a 68 year old male who is follow up today for acute provoked extensive RLE DVT which occurred secondary to thyroid malignancy and surgery. He has been compliant with Eliquis and denies missing doses. Patient is tolerating anticoagulation well. Denies any frequent falls, epistaxis, excessive bleeding gums, melena, hematochezia, hematuria, or hemoptysis. He is s/p thyroidectomy and radiation for his malignancy and is currently in remission. He is fully mobile. He does have residual RLE edema but is currently without symptoms of heaviness, aching, burning in the legs. He is compliant with wearing compression stockings Review of Systems 10 point ROS reviewed and negative with exception of that mentioned in HPI Objective Visit Vitals BP 142/66 (BP Location: Left arm, Patient Position: Sitting, BP Cuff Size: Adult long) Pulse 63 Physical Exam Constitutional: General: He is not in acute distress. Appearance: Normal appearance. He is not ill-appearing. HENT: Head: Normocephalic and atraumatic. Eyes: General: No scleral icterus. Pupils: Pupils are equal, round, and reactive to light. Cardiovascular: Rate and Rhythm: Normal rate and regular rhythm. Pulmonary: Effort: Pulmonary effort is normal. Breath sounds: Normal breath sounds. Musculoskeletal: Cervical back: Neck supple. Right lower leg: Edema present. Skin: General: Skin is warm and dry. Neurological: General: No focal deficit present. Mental Status: He is alert and oriented to person, place, and time. Psychiatric: Mood and Affect: Mood normal. Behavior: Behavior normal. Thought Content: Thought content normal. Judgment: Judgment normal. Assessment/Plan Diagnoses and all orders for this visit: History of DVT (deep vein thrombosis) -Extensive 1st incidence RLE DVT provoked 2/2 to surgical procedure and malignancy for which he is currently in remission. He completed 6 months of anticoagulation. He had follow up US which demonstrated resolution of acute clot but with some chronic changes in the affected vessels. 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 Discussed importance of compression stockings for management, especially with long periods of standing or sitting. -Follow up in 1 year for recheck of his edema with reflux studies at the time, can see sooner if he becomes more symptomatic with respect to the right leg SHIRA Paez No diagnosis found. No orders of the defined types were placed in this encounter. No results found for this or any previous visit (from the past 36 hour(s)). No follow-ups on file. [facility] 08-27-2023 Note HNO ID: [id number] Author: Azam GUILLERMO MD Service: ? 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 HPI: Patient is doing well. Energy level good. Denies any palpitations feeling of jitteriness chest pain or other issues. No dysphagia. RADIOLOGY: Post I-131 whole-body scan 06/10/2023: Uptake within an area of thyroid bed only. No suspected metastatic disease. LABORATORY: Latest Reference Range AND Units 04/01/23 13:58 06/03/23 10:39 08/18/23 09:27 Thyroglobulin Ab, Serum <4.0 IU/mL <0.9 Thyroglobulin, Serum 1.6 - 50.0 ng/mL 2.8 Thyroglobulin, LC-MS/MS 1.3 - 31.8 ng/mL 1.7 T4 5.5 - 10.2 ug/dL 7.1 TSH 0.270 - 4.200 mIU/L 0.535 FOCUSED ROS: Dysphagia: No Mucositis: No Voice Changes:Yes improved/no lymph resolved Fatigue: No Nausea: No Vomitting: No Pain: No Taste: No Weight loss: No ALLERGIES Allergen Reactions Clindamycin Rash MEDICATIONS: apixaban (ELIQUIS) 5 mg tab(s) Take 5 mg by mouth every 12 hours. famotidine (PEPCID) 20 mg tablet Take 1 tablet by mouth daily at bedtime. omeprazole (PRILOSEC) 40 mg capsule Take 40 mg by mouth. levothyroxine (SYNTHROID) 125 mcg tablet Take 1 tablet by mouth once daily. Start 06/04/23 liothyronine (CYTOMEL) 25 mcg tablet pilocarpine (SALAGEN, PILOCARPINE,) 5 mg tablet Take 1 tablet by mouth three times daily. prochlorperazine (COMPAZINE) 10 mg tablet Take 1 tablet by mouth every 8 hours as needed. PAST MEDICAL HISTORY Diagnosis Date DVT (deep venous thrombosis) (HCC) RLE Prior radiation therapy, collagen vascular disease, or inflammatory bowel disease: No PAST SURGICAL HISTORY Procedure Laterality Date THYROIDECTOMY FAMILY HISTORY Problem Relation Age of Onset Cancer Father Colon Cancer Sister Social History Tobacco Use Smoking status: Former Packs/day: 0.50 Years: 5.00 Additional pack years: 0.00 Total pack years: 2.50 Types: Cigarettes Quit date: 1982 Years since quittin.1 Smokeless tobacco: Never Substance Use Topics Alcohol use: Not Currently Drug use: Not Currently COMPLETE REVIEW OF SYSTEMS: GENERAL: feeling well without fatigue, no recent change in weight HEENT: denies TRUONG, change in hearing or vision, no other ENT complaints NECK: See HPI RESPIRATORY: no cough, no wheezing or shortness of breath CARDIOVASCULAR: no chest pain, no palpitations SKIN: no rash NEURO: no numbness or paresthesias and no weakness of the extremities As noted in HPI PHYSICAL EXAM: VS: BP 139/80 Pulse 70 Temp 36.4 ?C (97.5 ?F) Resp 16 Wt 86.4 kg (190 lb 7.6 oz) SpO2 98% BMI 31.22 kg/m? KPS: 100 General Appearance: Alert and oriented. No acute distress. Neck: Normal ROM. No palpable cervical or supraclavicular adenopathy. Skin: No rashes noted Lymphatics: No palpable lymphadenopathy. Hematologic: No signs of active bleeding. 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 Doing well. On appropriate Synthroid replacement. Continue current dose recheck levels with thyroglobulin in 3 months. 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 HPI: Patient is doing well. Energy level good. Denies any palpitations feeling of jitteriness chest pain or other issues. No dysphagia. RADIOLOGY: Post I-131 whole-body scan 06/10/2023: Uptake within an area of thyroid bed only. No suspected metastatic disease. LABORATORY: Latest Reference Range & Units 04/01/23 13:58 06/03/23 10:39 08/18/23 09:27 Thyroglobulin Ab, Serum <4.0 IU/mL <0.9 Thyroglobulin, Serum 1.6 - 50.0 ng/mL 2.8 Thyroglobulin, LC-MS/MS 1.3 - 31.8 ng/mL 1.7 T4 5.5 - 10.2 ug/dL 7.1 TSH 0.270 - 4.200 mIU/L 0.535 FOCUSED ROS: Dysphagia: No Mucositis: No Voice Changes:Yes improved/no lymph resolved Fatigue: No Nausea: No Vomitting: No Pain: No Taste: No Weight loss: No ALLERGIES Allergen Reactions Clindamycin Rash MEDICATIONS: apixaban (ELIQUIS) 5 mg tab(s) Take 5 mg by mouth every 12 hours. famotidine (PEPCID) 20 mg tablet Take 1 tablet by mouth daily at bedtime. omeprazole (PRILOSEC) 40 mg capsule Take 40 mg by mouth. levothyroxine (SYNTHROID) 125 mcg tablet Take 1 tablet by mouth once daily. Start 06/04/23 liothyronine (CYTOMEL) 25 mcg tablet pilocarpine (SALAGEN, PILOCARPINE,) 5 mg tablet Take 1 tablet by mouth three times daily. prochlorperazine (COMPAZINE) 10 mg tablet Take 1 tablet by mouth every 8 hours as needed. PAST MEDICAL HISTORY Diagnosis Date DVT (deep venous thrombosis) (HCC) RLE Prior radiation therapy, collagen vascular disease, or inflammatory bowel disease: No PAST SURGICAL HISTORY Procedure Laterality Date THYROIDECTOMY FAMILY HISTORY Problem Relation Age of Onset Cancer Father Colon Cancer Sister Social History Tobacco Use Smoking status: Former Packs/day: 0.50 Years: 5.00 Additional pack years: 0.00 Total pack years: 2.50 Types: Cigarettes Quit date: 1982 Years since quittin.1 Smokeless tobacco: Never Substance Use Topics Alcohol use: Not Currently Drug use: Not Currently COMPLETE REVIEW OF SYSTEMS: GENERAL: feeling well without fatigue, no recent change in weight HEENT: denies TRUONG, change in hearing or vision, no other ENT complaints NECK: See HPI RESPIRATORY: no cough, no wheezing or shortness of breath CARDIOVASCULAR: no chest pain, no palpitations SKIN: no rash NEURO: no numbness or paresthesias and no weakness of the extremities As noted in HPI PHYSICAL EXAM: VS: BP 139/80 Pulse 70 Temp 36.4 C (97.5 F) Resp 16 Wt 86.4 kg (190 lb 7.6 oz) SpO2 98% BMI 31.22 kg/m KPS: 100 General Appearance: Alert and oriented. No acute distress. Neck: Normal ROM. No palpable cervical or supraclavicular adenopathy. Skin: No rashes noted Lymphatics: No palpable lymphadenopathy. Hematologic: No signs of active bleeding. 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 Doing well. On appropriate Synthroid replacement. Continue current dose recheck levels with thyroglobulin in 3 months. Signed by: Azam Guillermo MD cc: Gael Thomas [address] [place] [address] Joey Rand MD [address] [place] [address] [address] [facility] [id number] documented in this encounter [facility] 06-17-2023 Note HNO ID: [id number] Author: Azam Guillermo MD Service: ? 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 HPI: Patient is doing well. No significant acute issues related to I-131 administration. RADIOLOGY: Post I-131 whole-body scan 06/10/2023: Uptake within an area of thyroid bed only. No suspected metastatic disease. LABORATORY: Latest Reference Range AND Units 04/01/23 13:58 06/03/23 10:39 Thyroglobulin Ab, Serum <4.0 IU/mL <0.9 Thyroglobulin, Serum 1.6 - 50.0 ng/mL 2.8 Thyroglobulin, LC-MS/MS 1.3 - 31.8 ng/mL 1.7 FOCUSED ROS: Dysphagia: No Mucositis: No Voice Changes:Yes improved/no lymph resolved Fatigue: No Nausea: No Vomitting: No Pain: No Taste: No Weight loss: No ALLERGIES Allergen Reactions Clindamycin Rash MEDICATIONS: omeprazole (PRILOSEC) 40 mg capsule Take 40 mg by mouth. famotidine (PEPCID) 20 mg tablet Take 20 mg by mouth. levothyroxine (SYNTHROID) 125 mcg tablet Take 1 tablet by mouth once daily. Start 06/04/23 apixaban (ELIQUIS) 5 mg tab(s) Take 5 mg by mouth. liothyronine (CYTOMEL) 25 mcg tablet pilocarpine (SALAGEN, PILOCARPINE,) 5 mg tablet Take 1 tablet by mouth three times daily. prochlorperazine (COMPAZINE) 10 mg tablet Take 1 tablet by mouth every 8 hours as needed. PAST MEDICAL HISTORY Diagnosis Date DVT (deep venous thrombosis) (HCC) RLE Prior radiation therapy, collagen vascular disease, or inflammatory bowel disease: No PAST SURGICAL HISTORY Procedure Laterality Date THYROIDECTOMY FAMILY HISTORY Problem Relation Age of Onset Cancer Father Colon Cancer Sister Social History Tobacco Use Smoking status: Former Packs/day: 0.50 Years: 5.00 Additional pack years: 0.00 Total pack years: 2.50 Types: Cigarettes Quit date: 1982 Years since quittin.9 Smokeless tobacco: Never Substance Use Topics Alcohol use: Not Currently Drug use: Not Currently COMPLETE REVIEW OF SYSTEMS: GENERAL: feeling well without fatigue, no recent change in weight HEENT: denies TRUONG, change in hearing or vision, no other ENT complaints NECK: See HPI RESPIRATORY: no cough, no wheezing or shortness of breath CARDIOVASCULAR: no chest pain, no palpitations SKIN: no rash NEURO: no numbness or paresthesias and no weakness of the extremities As noted in HPI PHYSICAL EXAM: VS: BP 143/86 Pulse 70 Temp (!) 35.9 ?C (96.7 ?F) Resp 18 Wt 82.1 kg (181 lb) SpO2 98% BMI 29.66 kg/m? KPS: 100 General Appearance: Alert and oriented. No acute distress. Neck: Normal ROM. No palpable cervical or supraclavicular adenopathy. Skin: No rashes noted Lymphatics: No palpable lymphadenopathy. Hematologic: No signs of active bleeding. 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 Patient has done very well after I-131 ablative treatment. No evidence of metastatic disease on post I-131 whole-body scan. Post Thyrogen thyroglobulin detectable but fairly low. Patient is initiated Synthroid. He will have follow-up to determine appropriate TSH suppression. 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 HPI: Patient is doing well. No significant acute issues related to I-131 administration. RADIOLOGY: Post I-131 whole-body scan 06/10/2023: Uptake within an area of thyroid bed only. No suspected metastatic disease. LABORATORY: Latest Reference Range & Units 04/01/23 13:58 06/03/23 10:39 Thyroglobulin Ab, Serum <4.0 IU/mL <0.9 Thyroglobulin, Serum 1.6 - 50.0 ng/mL 2.8 Thyroglobulin, LC-MS/MS 1.3 - 31.8 ng/mL 1.7 FOCUSED ROS: Dysphagia: No Mucositis: No Voice Changes:Yes improved/no lymph resolved Fatigue: No Nausea: No Vomitting: No Pain: No Taste: No Weight loss: No ALLERGIES Allergen Reactions Clindamycin Rash MEDICATIONS: omeprazole (PRILOSEC) 40 mg capsule Take 40 mg by mouth. famotidine (PEPCID) 20 mg tablet Take 20 mg by mouth. levothyroxine (SYNTHROID) 125 mcg tablet Take 1 tablet by mouth once daily. Start 06/04/23 apixaban (ELIQUIS) 5 mg tab(s) Take 5 mg by mouth. liothyronine (CYTOMEL) 25 mcg tablet pilocarpine (SALAGEN, PILOCARPINE,) 5 mg tablet Take 1 tablet by mouth three times daily. prochlorperazine (COMPAZINE) 10 mg tablet Take 1 tablet by mouth every 8 hours as needed. PAST MEDICAL HISTORY Diagnosis Date DVT (deep venous thrombosis) (HCC) RLE Prior radiation therapy, collagen vascular disease, or inflammatory bowel disease: No PAST SURGICAL HISTORY Procedure Laterality Date THYROIDECTOMY FAMILY HISTORY Problem Relation Age of Onset Cancer Father Colon Cancer Sister Social History Tobacco Use Smoking status: Former Packs/day: 0.50 Years: 5.00 Additional pack years: 0.00 Total pack years: 2.50 Types: Cigarettes Quit date: 1982 Years since quittin.9 Smokeless tobacco: Never Substance Use Topics Alcohol use: Not Currently Drug use: Not Currently COMPLETE REVIEW OF SYSTEMS: GENERAL: feeling well without fatigue, no recent change in weight HEENT: denies TRUONG, change in hearing or vision, no other ENT complaints NECK: See HPI RESPIRATORY: no cough, no wheezing or shortness of breath CARDIOVASCULAR: no chest pain, no palpitations SKIN: no rash NEURO: no numbness or paresthesias and no weakness of the extremities As noted in HPI PHYSICAL EXAM: VS: BP 143/86 Pulse 70 Temp (!) 35.9 C (96.7 F) Resp 18 Wt 82.1 kg (181 lb) SpO2 98% BMI 29.66 kg/m KPS: 100 General Appearance: Alert and oriented. No acute distress. Neck: Normal ROM. No palpable cervical or supraclavicular adenopathy. Skin: No rashes noted Lymphatics: No palpable lymphadenopathy. Hematologic: No signs of active bleeding. 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 Patient has done very well after I-131 ablative treatment. No evidence of metastatic disease on post I-131 whole-body scan. Post Thyrogen thyroglobulin detectable but fairly low. Patient is initiated Synthroid. He will have follow-up to determine appropriate TSH suppression. Signed by: Azam Guillermo MD cc: Gael [address]imes[address] [place] [address] Joey Rand MD [address] [facility] [address] [facility] [id number] documented in this encounter [facility] 06-03-2023 Note HNO ID: [id number] Author: Azam Guillermo MD Service: ? Author Type: Physician Type: Progress Notes Filed: 06/04/2023 1:08 PM Note Text: PATIENT NAME: Arvind Rm PATIENT : 1955 See note at [facility] 06-03-2023 History of Present illness Narrative PATIENT NAME: Arvind Rm PATIENT : 1955 See note at [facility] [place] [place] documented in this encounter [facility] 05-22-2023 Note Subjective Patient ID: Arvind Rm is a 68 y.o. male who presents for No chief complaint on file.. HPI 68 y.o. male with history of RLE DVT, seen at [facility] on 03/19. Patient has no history of DVT. CTA abdomen pelvis with venous phase was done which demonstrated extensive right sided dvt from level of the common femoral vein through the peroneal and posterior tibial veins. No visible clot in the iliac veins or IVC. He is currently wearing FAN hose which are too long. Prescription given for 20-30 compression stockings. Instructed to wear lifelong to help prevent post thrombotic syndrome. Denies epistaxis, bleeding gums, blood in stool. Instructed to go to the ED if he hits his head due to increased bleeding risk. Leg swelling remains to RLE, patient states it has improved recently. Review of Systems Constitutional: Negative for chills, fatigue and fever. Respiratory: Negative for cough, chest tightness, shortness of breath and wheezing. Cardiovascular: Negative for chest pain, palpitations and leg swelling. Gastrointestinal: Negative for abdominal pain, constipation, diarrhea, nausea and rectal pain. Musculoskeletal: Negative for back pain, gait problem, joint swelling, myalgias and neck pain. Skin: Negative for color change, pallor, rash and wound. Neurological: Negative for dizziness, syncope, weakness, light-headedness and headaches. Objective Visit Vitals BP 127/74 (BP Location: Left arm, Patient Position: Sitting, BP Cuff Size: Large adult) Pulse 80 Temp 36.3 ???C (97.3 ???F) (Temporal) Physical Exam Vitals reviewed. HENT: Head: Normocephalic and atraumatic. Eyes: Pupils: Pupils are equal, round, and reactive to light. Cardiovascular: Rate and Rhythm: Normal rate. Pulmonary: Effort: Pulmonary effort is normal. Musculoskeletal: General: Normal range of motion. Skin: General: Skin is warm and dry. Neurological: Mental Status: He is alert and oriented to person, place, and time. Psychiatric: Mood and Affect: Mood normal. Behavior: Behavior normal. Assessment/Plan Extensive RLE DVT diagnosed 03/19/23 RLE venous duplex in 4 weeks with clinic follow up after Continue to wear compression stockings daily Leg elevation, CMP exercises Continue Eliquis 5 mg BID No diagnosis found. No orders of the defined types were placed in this encounter. No results found for this or any previous visit (from the past 36 hour(s)). No follow-ups on file. [facility] 05-22-2023 Note Subjective Patient ID: Arvind Rm is a 68 y.o. male who presents for No chief complaint on file.. HPI Review of Systems Constitutional: Negative for chills, fatigue and fever. Respiratory: Negative for cough, chest tightness, shortness of breath and wheezing. Cardiovascular: Negative for chest pain, palpitations and leg swelling. Gastrointestinal: Negative for abdominal pain, constipation, diarrhea, nausea and rectal pain. Musculoskeletal: Negative for back pain, gait problem, joint swelling, myalgias and neck pain. Skin: Negative for color change, pallor, rash and wound. Neurological: Negative for dizziness, syncope, weakness, light-headedness and headaches. Objective There were no vitals taken for this visit. Physical Exam Assessment/Plan No diagnosis found. No orders of the defined types were placed in this encounter. No results found for this or any previous visit (from the past 36 hour(s)). No follow-ups on file. [facility] 04-28-2023 History and physical note Note Date/Time April 28, 2023 8: 05am [facility] [address] [place] [address] Gastroenterology H&P Signed Patient: Arvind Rm MR#: [id number] : 1955 Acct:[id number] Age/Sex: 68 / M Adm Date: 3 Loc: Room: Type: [facility] Attending Dr: Modesto Guzmán MD Copies to: MD Modesto Epperson MD~ Date of Service: 04/28/2023 HISTORY & PHYSICAL: Patient's history with special attention to the cardiovascular, pulmonary systems and the current problem was reviewed with the patient immediately prior to the procedure. Present medications and doses reviewed in the EMR. Allergies and pertinent laboratory tests were also reviewedat this time in the EMR. The physical examination, as below, was then performed. Indication, assessment and HPI: 68-year-old man here for colonoscopy with polypectomy Family history of GI malignancy? Yes PHYSICAL EXAMINATION Mouth and Pharynx : Moist mucus membranes, normal dentition Cardiac: Regular rate, regular rhythm Pulmonary: Clear to auscultation bilaterally, no wheezing Neurological: Alert and oriented x3, no focal deficits noted Abdomen: Abdomen soft, non-tender REVIEW OF SYSTEMS Constitutional: Denies malaise, fevers Cardiovascular: Denies chest pain, palpitations Respiratory: Denies shortness of breath, wheezing Gastrointestinal: Per HPI Genitourinary: Denies dysuria, polyuria Musculoskeletal: Denies joint swelling, joint stiffness Neurological: Denies numbness, tingling Integumentary: Denies rashes, skin lesions Endocrine: Denies fatigue, weight loss Written informed consent obtained from the patient. Risks (including but not limited to perforation, infection, bloating, bleeding, need for emergent surgeryand loss of life), benefits and alternatives explained and questions answered. The patient verbalized understanding. Based on history patient is an appropriate candidate for the procedure. Modesto Guzmán M.D. Documented By: Modesto Guzmán MD 04/28/23 0804 Signed By: <Electronically signed by Modesto Guzmán MD> 04/28/23 0805 [facility] Work Phone: [phone]) 900-788210-03-2023 [facility]* Sherie Reich LPN - 04/01/2023 3:12 PM EDT Arvind Rm presents in office today for: Lab Draw during Office Visit . Ordering Provider: Oracio Guillermo M.D. Test (s) ordered: Thyroglobulin level Method for obtaining blood: Phlebotomy was performed, accessing right antecubital vein. Needle removed intact. Dressing secured. Patient denies discomfort, dizziness, light-headedness or weakness and left the department without assist. Sherie Reich LPN documented in this encounterMer[facility] NoteHNO ID: [id number] Author: Azam Guillermo MD Service: ? Author Type: Physician Type: Progress Notes Filed: 04/08/2023 10:50 AM Note Text: Radiation Oncology - New Patient/Consult Note PATIENT NAME: Arvind Rm PATIENT : 1955 REQUESTING PROVIDER: Dr. 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 Final recommendations will be communicated back to the requesting physician by way of the shared medical record, or letter to requesting physician via US mail. Patient presented with a enlarged/lump in thyroid left greater than right. He underwent evaluation with ultrasound thyroid on 10/30/2022, which demonstrated single dominant nodule 3.3 x 2.2 x 2.1 cm on the right solid hypoechoic. On the left single dominant nodule 4.5 cm x 3.1 cm x 3.4 cm solid hypoechoic wide TR 5. FNA was done on 11/11/2022 demonstrating atypia of undetermined significance from the right thyroid inferior nodule, and similarly atypia of undetermined significance with a left thyroid nodule. On 03/10/2023, patient underwent total thyroidectomy. Intraoperative findings included a 5 cm large buccal mass with extensive fibrosis to surrounding strap muscles and a rubbery 3.5 cm inferior pole mass. Pathology demonstrated, 4.0 cm papillary thyroid carcinoma classic subtype from the left and papillary microcarcinoma on the right, classic subtype. 1 benign lymph node submitted. No angiolymphatic invasion, lymphatic invasion, perineural invasion or extrathyroidal extension seen. pT2pN0 FOCUSED ROS: Dysphagia: No Mucositis: No Voice Changes:Yes improved/no lymph resolved Fatigue: No Nausea: No Vomitting: No Pain: No Taste: No Weight loss: No ALLERGIES Allergen Reactions Clindamycin Rash MEDICATIONS: apixaban (ELIQUIS) 5 mg tab(s) Take 5 mg by mouth. liothyronine (CYTOMEL) 25 mcg tablet 1 tablet on an empty stomach Orally BID pilocarpine (SALAGEN, PILOCARPINE,) 5 mg tablet Take 1 tablet by mouth three times daily. prochlorperazine (COMPAZINE) 10 mg tablet Take 1 tablet by mouth every 8 hours as needed. levothyroxine (SYNTHROID) 125 mcg tablet Take 1 tablet by mouth once daily. Start 06/04/23 PAST MEDICAL HISTORY Diagnosis Date DVT (deep venous thrombosis) (HCC) RLE Prior radiation therapy, collagen vascular disease, or inflammatory bowel disease: No PAST SURGICAL HISTORY Procedure Laterality Date THYROIDECTOMY FAMILY HISTORY Problem Relation Age of Onset Cancer Father Colon Cancer Sister Social History Tobacco Use Smoking status: Former Packs/day: 0.50 Years: 5.00 Additional pack years: 0.00 Total pack years: 2.50 Types: Cigarettes Quit date: 1982 Years since quittin.7 Smokeless tobacco: Never Substance Use Topics Alcohol use: Not Currently Drug use: Not Currently COMPLETE REVIEW OF SYSTEMS: GENERAL: feeling well without fatigue, no recent change in weight HEENT: denies TRUONG, change in hearing or vision, no other ENT complaints NECK: See HPI RESPIRATORY: no cough, no wheezing or shortness of breath CARDIOVASCULAR: no chest pain, no palpitations SKIN: no rash NEURO: no numbness or paresthesias and no weakness of the extremities As noted in HPI PHYSICAL EXAM: VS: BP 115/78 Pulse 86 Temp 36.7 ?C (98 ?F) Resp 16 Ht 166.4 cm (5' 5.5 ) Wt 78.9 kg (174 lb) SpO2 97% BMI 28.51 kg/m? KPS: 100 General Appearance: Alert and oriented. No acute distress. HEENT: NCAT. Sclera anicteric. PERRL. EOMI. Oral cavity AND oropharnyx: lips and gums normal, oral and pharyngeal mucosa moist, palate elevates normally, tongue mobile and without palpable lesions, tonsils without masses Trismus: none Dentition: Good Neck: Normal ROM. No palpable cervical or supraclavicular adenopathy. Chest: No respiratory distress. Lungs clear to auscultation bilaterally. Heart: Regular rate and rhythm. Abdomen: Soft. Nontender. Nondistended. Musculoskeletal: No edema. Normal ROM in extremities. No bone or spine tenderness. Neuro: Speech fluent. Gait normal. No focal deficits. Skin: No rashes noted Lymphatics: No palpable lymphadenopathy. Hematologic: No signs of active bleeding. 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 Doing well after thyroidectomy. He had evidence of peritumoral reaction of the soft tissues with c (more content not included)...[facility] 04-01-2023 History of Present illness Narrative* Azma Guillermo MD - 04/01/2023 12:23 PM EDT Radiation Oncology - New Patient/Consult Note PATIENT NAME: Arvind Rm PATIENT : 1955 REQUESTING PROVIDER: Dr. 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 Final recommendations will be communicated back to the requesting physician by way of the shared medical record, or letter to requesting physician via US mail. Patient presented with a enlarged/lump in thyroid left greater than right. He underwent evaluation with ultrasound thyroid on 10/30/2022, which demonstrated single dominant nodule 3.3 x 2.2 x 2.1 cm on the right solid hypoechoic. On the left single dominant nodule 4.5 cm x 3.1 cm x 3.4 cm solid hypoechoic wide TR 5. FNA was done on 11/11/2022 demonstrating atypia of undetermined significance from the right thyroid inferior nodule, and similarly atypia of undetermined significance with a left thyroid nodule. On 03/10/2023, patient underwent total thyroidectomy. Intraoperative findings included a 5 cm large buccal mass with extensive fibrosis to surrounding strap muscles and a rubbery 3.5 cm inferior pole mass. Pathology demonstrated, 4.0 cm papillary thyroid carcinoma classic subtype from the left and papillary microcarcinoma on the right, classic subtype. 1 benign lymph node submitted. No angiolymphatic invasion, lymphatic invasion, perineural invasion or extrathyroidal extension seen. pT2pN0 FOCUSED ROS: Dysphagia: No Mucositis: No Voice Changes:Yes improved/no lymph resolved Fatigue: No Nausea: No Vomitting: No Pain: No Taste: No Weight loss: No ALLERGIES Allergen Reactions Clindamycin Rash MEDICATIONS: apixaban (ELIQUIS) 5 mg tab(s) Take 5 mg by mouth. liothyronine (CYTOMEL) 25 mcg tablet 1 tablet on an empty stomach Orally BID pilocarpine (SALAGEN, PILOCARPINE,) 5 mg tablet Take 1 tablet by mouth three times daily. prochlorperazine (COMPAZINE) 10 mg tablet Take 1 tablet by mouth every 8 hours as needed. levothyroxine (SYNTHROID) 125 mcg tablet Take 1 tablet by mouth once daily. Start 06/04/23 PAST MEDICAL HISTORY Diagnosis Date DVT (deep venous thrombosis) (HCC) RLE Prior radiation therapy, collagen vascular disease, or inflammatory bowel disease: No PAST SURGICAL HISTORY Procedure Laterality Date THYROIDECTOMY FAMILY HISTORY Problem Relation Age of Onset Cancer Father Colon Cancer Sister Social History Tobacco Use Smoking status: Former Packs/day: 0.50 Years: 5.00 Additional pack years: 0.00 Total pack years: 2.50 Types: Cigarettes Quit date: 1982 Years since quittin.7 Smokeless tobacco: Never Substance Use Topics Alcohol use: Not Currently Drug use: Not Currently COMPLETE REVIEW OF SYSTEMS: GENERAL: feeling well without fatigue, no recent change in weight HEENT: denies TRUONG, change in hearing or vision, no other ENT complaints NECK: See HPI RESPIRATORY: no cough, no wheezing or shortness of breath CARDIOVASCULAR: no chest pain, no palpitations SKIN: no rash NEURO: no numbness or paresthesias and no weakness of the extremities As noted in HPI PHYSICAL EXAM: VS: BP 115/78 Pulse 86 Temp 36.7 C (98 F) Resp 16 Ht 166.4 cm (5' 5.5 ) Wt 78.9 kg (174 lb) SpO2 97% BMI 28.51 kg/m KPS: 100 General Appearance: Alert and oriented. No acute distress. HEENT: NCAT. Sclera anicteric. PERRL. EOMI. Oral cavity & oropharnyx: lips and gums normal, oral and pharyngeal mucosa moist, palate elevates normally, tongue mobile and without palpable lesions, tonsils without masses Trismus: none Dentition: Good Neck: Normal ROM. No palpable cervical or supraclavicular adenopathy. Chest: No respiratory distress. Lungs clear to auscultation bilaterally. Heart: Regular rate and rhythm. Abdomen: Soft. Nontender. Nondistended. Musculoskeletal: No edema. Normal ROM in extremities. No bone or spine tenderness. Neuro: Speech fluent. Gait normal. No focal deficits. Skin: No rashes noted Lymphatics: No palpable lymphadenopathy. Hematologic: No signs of active bleeding. 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 Doing well after thyroidectomy. He had evidenceof peritumoral reaction of the soft tissues with complete resection. I do feel he would benefit from postoperative adjuvant/ablative I-131 therapy. The role of I-131 therapy discussed at length with patient and his . Radiation safety precautions discussed at length. Patient I do feel would be an appropriate candidate for outpatient delivery. Recommend delivery of I-131, 75 mCi following Thyrogen preparation. Plan for 7 to 10-day whole-body scan after delivery. Potential acute and long-term effects of I-131 discussed at length. Discussed role of low iodine diet 2 weeks prior to I-131 delivery. Patient and expressed an understanding of all the information presented. We will coordinate I-131 delivery as an outpatient. Signed by: Azam Guillermo MD cc: Gael Thomas [address] [place] [address] Joey Rand MD [address] [place] [phone] documented in this encounterMer[facility]08-25-2023 Note03/20/23 1246 Admission Assessment Questions Verify insurance with patient Yes Do you understand medical disease or what brought you into the hospital? Yes Who is your current PCP? Dr. Thomas Can I schedule a follow up appointment for you at the time of discharge? Yes Do you understand why you are taking your current medications? Yes Did patient provide teach back? Yes Would you like use our pharmacy [facility] to fill your new medications at the time of Discharge? Yes Living Arrangement (Current/Prior to Hospitalization) Private residence Does the patient have history of HHC or SNF? No Assistive Device Cane Patient's goal for discharge Patient's current plan is to return home with Was patient reminded that goal for discharge is 11am? Yes Does the patient have transportation at discharge? Yes ( at bedside, will provide transportation) Type of Residence/Post Acute Needs Private residence Is PT/OT appropriate? No Is PT/OT ordered? No Is SW consult appropriate? No Is SW consult ordered? No Patient lives with in a one story home. Was using a cane occasionally only recently, due to pain. He has no history of HHC or SNF.[facility]08-25-2023 Note Attestation signed by May Gonzales MD at 03/20/2023 4:02 PM Review the CAT scan that was done for the veins. 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 With this, patient can be treated only with anticoagulation with no need for any operative intervention. [facility] Vascular Surgery DAILY PROGRESS NOTE Subjective No acute events overnight. Patient is resting comfortably in bed this AM. Notes improvement in his right leg pain. Denies any chest pain, or shortness of breath. Objective Vitals Vitals: 03/19/232004 BP: 119/67 Pulse: 84 Resp: 16 Temp: 37.1 ???C (98.7 ???F) SpO2: 97% I/O last 3 completed shifts: In: 509.3 (6.4 mL/kg) [I.V.:509.3 (6.4 mL/kg)] Out: - (0 mL/kg) Weight: 79.6 kg No intake/output data recorded. Physical Exam General Appearance: AAOx3, NAD Neck: trachea midline, no JVD Pulmonary: Normal respiratory effort, no audible wheezing Cardiac: RRR Abdomen: soft, non-distended, non-tender, no guarding, no rebound tenderness Extremities: no edema bilateral upper and lower extremities. RLE leg swelling. Nontender. Skin: warm and dry without rash Eyes: no scleral icterus Labs Results from last 7 days Lab Units 03/20/23 0604 03/20/23 0120 03/19/23 1948 WBC AUTO 10*3/uL 8.59 7.74 8.68 HEMOGLOBIN g/dL 13.8 13.7 14.7 HEMATOCRIT % 39.0 39.2 42.8 PLATELETS AUTO 10*3/uL 205 200 219 Results from last 7 days Lab Units 03/20/23 0120 081946 SODIUM mmol/L 137 138 POTASSIUM mmol/L 3.8 3.5 CO2 mmol/L 24 28 BUN mg/dL 22 22 CREATININE mg/dL 0.93 0.97 Results from last 7 days Lab Units 03/20/23 0604 03/19/231946 INR 1.15* 1.19* Medications calcium carbonate, 500 mg, oral, Daily cholecalciferol, 1,000 Units, oral, Daily docusate sodium, 100 mg, oral, BID liothyronine, 25 mcg, oral, BID magnesium oxide, 400 mg, oral, Daily polyethylene glycol, 17 g, oral, Daily heparin, 0-28 Units/kg/hr, Last Rate: 20 Units/kg/hr (03/20/23 0741) lactated Ringer's, 75 mL/hr, Last Rate: 75 mL/hr (03/20/23 0043) Assessment/Plan Arvind Rm is a 68 year old male presenting as direct admit for extensive right lower extremity DVT. Recent thyroidectomy for malignant nodule on 03/10. Will follow up results of CTV for DVT evaluation Continue heparin gtt Start regular diet NPO at midnight Devendra Duffy MD Vascular Surgery Service General Surgery Resident, PGY-1 03/20/23[facility]04-12-2023 NoteOPERATIVE NOTE OPERATION DATE: 11/05/2022 PREOPERATIVE DIAGNOSIS: Colorectal screening. POSTOPERATIVE DIAGNOSIS: Colon polyps x4 and moderate sigmoid diverticulosis. PROCEDURE: Colonoscopy to cecum with cold snare polypectomy x4 for 7 mm ascending colon polyp, 4 mm sigmoid polyp, 2 mm distal sigmoid polyp and 3 mm rectal polyp. SURGEON: Violeta Tinoco M.D. ANESTHESIA: Monitored anesthesia care. ESTIMATED BLOOD LOSS: Less than 1 mL. INDICATIONS AND CONSENT: Patient is a 67-year-old male who presents for colorectal screening. Indications, risks, benefits, alternatives of proceeding with colonoscopy were explained extensively to the patient, including the risks of bleeding, colon perforation or anesthetic complications. All of his questions were answered. Informed consent was obtained. PROCEDURE: Patient brought to the operating room, placed in the left lateral decubitus position. Monitored anesthesia care was provided. Rectal exam was performed which showed no masses or blood. The scope was inserted into the anal canal. Under direct visualization was advanced. With the aid of abdominal compression, it was advanced to the cecum where cecal markings were clearly identified. Upon withdrawal of the scope, mucosal surfaces were carefully examined. There was noted to be a good prep with some liquid stool throughout the colon that was able to be irrigated clear. Within the proximal ascending colon, there was noted to be a 7 mm irregular sessile polyp that was deep in a fold. This was removed with cold snare with good hemostasis. Just distal to that, in the proximal sigmoid, there was noted to be a 4 mm sessile polyp that was also removed with cold snare with good hemostasis. In the distal sigmoid, there was a 2 mm polyp that was removed with cold biopsy forceps with good hemostasis. Within the rectum there was a 3 mm polyp that was removed with cold snare with good hemostasis. There was moderate sigmoid diverticulosis without inflammatory changes or scarring. The scope was retroflexed in the anal canal. There was no significant hemorrhoidal disease. The scope was then withdrawn. Patient tolerated procedure well, was sent to recovery room in good condition. Follow up colonoscopy will depend on the pathology results, but may be within one year. CC: Gael Thomas M.D.[facility] [id number] NoteChief Complaint consultation for screening colonoscopy HPI Staff 67 year old male presents on consultation from Dr. Thomas for screening colonoscopy. Denies abdominal or rectal pain. No rectal bleeding or change in bowel habits. Denies nausea or vomiting. No unexplained weight loss. Last colonoscopy completed greater than 10 years ago; reported normal per patient. B ana with history of colon polyp. Sister with history of colon cancer, diagnosed age 48. History of Present Illness 67 yo male with h/o htn, hyperlipidemia, referred for colorectal screening; last colonoscopy > 10 years; wnl; no change in bms or blood in stools, no abd complaints; no abd operations; denies asa or NSAID use, no SBE prophylaxis;fmhx of colon cancer in patient's sister, dx in her 40's, h/o colonpolyps in his brother. Review of Systems PHQ Score Initial Depression Screen Score: 0 ROS - Provider Constitutional: no fever, no sweats, no weight loss. Eyes: no glasses, no blurred vision, no visual loss. ENMT: no dentures, no hoarseness, no swallowing difficulties, no hearing loss, no ear infection(s),no nose bleeds. Cardiovascular: normal blood pressure, no chest pain, regular heartbeat, no heart murmur. Respiratory: no shortness of breath, no cough, no asthma, no wheezing. Gastrointestinal: no nausea, no vomiting, no diarrhea, no constipation, no blood in stool, no change in bowel habits, no abdominal pain, no hepatitis. Genitourinary: no kidney stones, no urine infection, no dysuria. Musculoskeletal: no pain, no weakness. Skin: no changing moles, no rash, no skin lumps. Neurologic: no seizures, no epilepsy, no headache. Psychiatric: no emotional or psychiatric problem. Heme/Lymph: no bleeding problems, no anemia, no blood clots, no transfusions. Allergy/Immunologic: no swollen lymph nodes/glands, no IV drug abuse. Other: Additional ROS info: Except as noted in the above Review of Systems and in the History of Present Illness, all other systems have been reviewed and are negative or noncontributory. Physical Exam Vitals & Measurements HR: 74(Peripheral) RR: 16 BP: 122/80 HT: 65 in HT: 165.1 cm WT: 83.8 kg WT: 184.36 lb BMI: 30.74 HEENT: normal conjunctiva, sclera clear, no scleral icterus, EOM intact, PERRLA, oral mucosa moist without lesions. Neck: trachea midline, no mass, symmetric, no thyromegaly or nodules, no adenopathy Respiratory: lungs CTA, respirations non labored. Cardiovascular: regular rate and rhythm, no murmur, no pedal edema or varicosities. Gastrointestinal: soft, non distended, no tenderness, no masses, no palpable hernias, diastasis recti no, no hepatosplenomegaly; normal bs Lymphatic: no cervical adenopathy, no supraclavicular adenopathy Musculoskeletal: normal gait, digits and nails without infection, nodes, cyanosis, clubbing. Skin: no rashes, no lesions, no ulcers, no subcutaneous nodules, induration. Psychiatric/Neuro: oriented to time, place, person, judgement normal, affect appropriate for age, insight intact, no focal deficits. Tests: , review of old records completed, Discussed surgical options, risks, and possible complications with patient. Assessment/Plan 1. Screening for malignant neoplasm of colon (Z12.11: Encounter for screening for malignant neoplasm of colon) plan colonoscopy under anesthesia, informed consent obtained. 2. Family history of colon cancer (Z80.0: Family history of malignant neoplasm of digestive organs) see # 1 Follow-up No qualifying data available Problem List/Past Medical History Ongoing BMI 30.0-30.9,adult Essential hypertension Family history of colon cancer Hyperlipidemia Screening for malignant neoplasm of colon Historical No qualifying data Procedure/Surgical History Colonoscopy. Medications Multi Vitamins oral tablet, 1 tab(s), Oral, Daily Allergies No Known Allergies No Known Medication Allergies Social History Alcohol - Denies Alcohol Use, 10/22/2022 Substance Abuse - Denies Substance Abuse, 10/22/2022 Tobacco Former smoker, quit more than 30 days ago Tobacco Use:. Never Smokeless Tobacco Use:. Cigarettes, 0.5 per day. Started age 25.0 Years. Stopped age 32 Years., 10/22/2022 Family History Diabetes mellitus type 2: Mother, Sister and Brother. Heart disease: Father. Primary malignant neoplasm of colon: Sister. Immunizations Vaccine Date Status Comments influenza virus vaccine, inactivated - Not Given Patient Refuses SARSCoV2 mRNA(yinznakez-cfhu-ctimds) vac 03/24/2022 Recorded SARSCoV2 mRNA(mvfuuznif-iulh-iwugns) vac 10/16/2021 Recorded SARS-CoV-2 (COVID-19) mRNA BNT-162b2 vax 04/17/2021 Recorded SARS-CoV-2 (COVID-19) mRNA BNT-162b2 vax 03/27/2021 RecordedMercy Health Fairfield HospitalComment on above:Result Comment: Electronically Signed By: DAVIDA CHIN, Violeta Vallecillo\Date and Time Signed: 10/22/22 16:00 EDTEvaluation + Plan note No data available for this section General Surgery [place] Evaluation note* Diagnosis Thyroid cancer (HCC)- Primary Malignant neoplasm of thyroid gland [facility] Diagnosis Thyroid cancer (HCC)- Primary Malignant neoplasm of thyroid gland [facility] noteNo InformationNort [employer] Other Evaluation noteNo assessment information available [facility] Work Phone: Evaluation note* Diagnosis Thyroid cancer (HCC)- Primary Malignant neoplasm of thyroid gland [facility] Diagnosis Thyroid cancer (HCC)- Primary Malignant neoplasm of thyroid gland [facility] Diagnosis Thyroid cancer (HCC)- Primary Malignant neoplasm of thyroid gland [facility] Diagnosis Thyroid cancer (HCC)- Primary Malignant neoplasm of thyroid gland [facility] Diagnosis Thyroid cancer (HCC)- Primary Malignant neoplasm of thyroid gland documented in this encounter [facility] general Narrative - Reported* Type Description Date Surgical History thyroidectomy [employer] Other Hospital Discharge instructions No data available for this section General Surgery [employer] [facility] Discharge instructions Additional Instructions DISCHARGE INSTRUCTIONS FOR COLONOSCOPY WHAT TO EXPECT: - You may feel full, gassy or cramping after your procedure. In some cases, this may be from a few hours to a day. Walking may help relieve the discomfort. - If you have polyp(s) removed you may note some minor bloody discharge after your first bowel movements. - You should begin to recover from anesthesia within 1 hour of the procedure, however may feel groggy for the next 24 hours. DO's AND DON'Ts: - Call your doctor right away if you have a hard abdomen, severe pain, are passing lots of bright red blood or clots. - Call your doctor if you develop any rashes, hives or difficulty breathing. - Let your doctor know if you have not had a bowel movement by 3 days after your procedure. - If you take 81 mg aspirin for your heart it is safe to resume this medication. - If you take other blood thinner medications your doctor will instruct you when these can safely be resumed. - Do NOT drive for 24 hours. - Do NOT operate machinery such as power tools, [employer] mowers, [employer] blowers, sewing machines, etc. for 24 hours. - Avoid alcoholic beverages and drugs for allergies, nerves, or sleep. - Do NOT stay alone. Do NOT leave your child unattended. - Do NOT make important personal or business decisions or sign any legal documents. - Eat solid foods and drink liquids in smaller amounts than usual until normal appetite returns. If you should experience an upset stomach, liquids high in sugar content (soda, Gerald-Aid, non-acid juices) are recommended. - You can resume normal activities tomorrow. FOLLOW UP & RECOMMENDATIONS: -Notify the doctor if you have any problems. -Repeat colonoscopy in 3 years. -Follow up with PCP. -Office number [phone]. [facility] Work Phone: Progress note No data available for this section General Surgery [place] Reason for referral (narrative)* Diagnostic Procedure Only (Routine) - Pending Review Specialty Diagnoses / Procedures Referred By Contac t Referred To Contact MOLECULAR & FUNCTIONAL IMAGING Diagnoses Thyroid cancer (HCC) Procedures NM THERAPY THYROID I-131 RP THERAPY ORAL ADMINISTRATION Azam Guillermo MD [address] [place] [address] [place] [address] Molecular & Functional Imaging [address] [place] [address] Referral ID Status Reason Start Date Expiration Date Visits Requested Visits Authorized [id number] Pending Review Auto-Generat ed Referral 04/01/2023 04/30/2024 1 1 [facility] Summary Purpose Family History No Family History Records Found Relationship Condition Age at Onset Recorded Date/T simin sister Malignant neoplasm of colon Unknown father Congestive heart failure Unknown Not Specified Diabetes mellitus Unknown Advance Directives No Advanced Directives Records Found Advance Directive Response Recorded Date/ Time Advance Directives No April 27, 2023 1:33pm Advance Directive Response Recorded Date/ Time Advance Directives No April 27, 2023 12:33pm Chief Complaint and Reason for Visit Chief Complaint Hx of Colon Polyps, Family Hx of Colon Cancer Chief Complaint Hx of Colon Polyps, Family Hx of Colon Cancer thyroid cancer Medications Administered Section Inactive Administered Medications - up to 3 most recent administrations Medication Order MAR Action Action Date Dose Rate Site thyrotropin zi 0.9 mg injection (THYROGEN) 0.9 mg, INTRAMUSCULAR, ONCE, 1 dose, On 06/01/23 at 0900, REFRIGERATE Given 06/01/2023 8:57 AM EST 0.9 mg Hip, Right Inactive Administered Medications - up to 3 most recent administrations Medication Order MAR Action Action Date Dose Rate Site thyrotropin zi 0.9 mg injection (THYROGEN) 0.9 mg, INTRAMUSCULAR, ONCE, 1 dose, On Thu06/02/23 at 0900, REFRIGERATE Given 06/02/2023 8:50 AM EST 0.9 mg Hip, Left Additional Source Comments Patient Care team informatio n (unrecognized section and content) [employer] Operator Relationship Specialty Start Date End Date Gael Thomas MD [address] [place] [address] PCP - General Family Medicine 04/01/23 [employer] Operator Relationship Specialty Start Date End Date Gael Thomas MD [address] [place] [address] PCP - General Family Medicine 04/01/23 [employer] Operator Relationship Specialty Start Date End Date Gael Thomas MD [address] [place] [address] PCP - General Family Medicine 04/01/23 Team Status: Active Member Role Status Dates Gael Thoams MD Primary Care Provider Active Team Status: Inactive Member Role Status Dates Modesto Guzmán MD Attending Provider Active Gael Thomas MD Primary Care Provider Active [employer] Operator Relationship Specialty Start Date End Date Gael Thomas MD [address] [place] [address] PCP - General Family Medicine 04/01/23 [employer] Relationship Specialty Start Date End Date Gael Thomas MD [address] [place] [address] PCP - General Family Medicine 04/01/23 Team Status: Inactive Member Role Status Dates Temo Guillermo MD Attending Provider Active Gael Thomas MD Primary Care Provider Active Irish [employer] Operator Relationship Specialty Start Date End Date Gael Thomas MD [address] [facility] [place] [address] PCP - General Family Medicine 04/01/23 [employer] Operator Relationship Specialty Start Date End Date Gael Thomas MD [address] [facility] [place] [address] PCP - General Family Medicine 04/01/23 [employer] Operator Relationship Specialty Start Date End Date Gael Thomas MD [address] [place] [facility] [address] PCP - General Family Medicine 04/01/23 (unrecognized sect ion and content) No Status Records FoundNo Status Records FoundNo Status Records FoundNo Status Records FoundNo Status Records FoundNo Status Records Found INFORMATION SOURCE (unrecogn ized section and content) DATE CREATED AUTHOR [facility]/2022 [facility] DATE CREATED AUTHOR AUTHOR'S ORGANIZ ATION 01/29/2023 [facility] DATE CREATED AUTHOR AUTHOR'S ORGANIZ ATION 08/08/2023 [facility] DATE CREATED AUTHOR AUTHOR'S ORGANIZ ATION 08/20/2023 [facility] DATE CREATED AUTHOR AUTHOR'S ORGANIZ ATION 08/28/2023 [facility] DATE CREATED AUTHOR AUTHOR'S ORGANIZ ATION 09/05/2023 [facility] Comments (unrecognize d section and content) In the event this informatio n is protected by the Federal Confidentiality of Alcohol and Drug Abuse Patient Records regulations: The Federal rules restrict any use of the information to criminally investigate or prosecute any alcohol or drug abuse patient.[facility] the event this information is protected by the Federal Confidentiality of Alcohol and Drug Abuse Patient Records regulations: The Federal rules restrict any use of the information to criminally investigate or prosecute any alcohol or drug abuse patient.[facility] the event this information is protected by the Federal Confidentiality of Alcohol and Drug Abuse Patient Records regulations: The Federal rules restrict any use of the information to criminally investigate or prosecute any alcohol or drug abuse patient.[facility] the event this information is protected by the Federal Confidentiality of Alcohol and Drug Abuse Patient Records regulations: The Federal rules restrict any use of the information to criminally investigate or prosecute any alcohol or drug abuse patient.[facility] the event this information is protected by the Federal Confidentiality of Alcohol and Drug Abuse Patient Records regulations: The Federal rules restrict any use of the information to criminally investigate or prosecute any alcohol or drug abuse patient.[facility] the event this information is protected by the Federal Confidentiality of Alcohol and Drug Abuse Patient Records regulations: The Federal rules restrict any use of the information to criminally investigate or prosecute any alcohol or drug abuse patient.[facility] the event this information is protected by the Federal Confidentiality of Alcohol and Drug Abuse Patient Records regulations: The Federal rules restrict any use of the information to criminally investigate or prosecute any alcohol or drug abuse patient.[facility] the event this information is protected by the Federal Confidentiality of Alcohol and Drug Abuse Patient Records regulations: The Federal rules restrict any use of the information to criminally investigate or prosecute any alcohol or drug abuse patient.[facility] the event this information is protected by the Federal Confidentiality of Alcohol and Drug Abuse Patient Records regulations: The Federal rules restrict any use of the information to criminally investigate or prosecute any alcohol or drug abuse patient.[facility] the event this information is protected by the Federal Confidentiality of Alcohol and Drug Abuse Patient Records regulations: The Federal rules restrict any use of the information to criminally investigate or prosecute any alcohol or drug abuse patient.[facility] the event this information is protected by the Federal Confidentiality of Alcohol and Drug Abuse Patient Records regulations: The Federal rules restrict any use of the information to criminally investigate or prosecute any alcohol or drug abuse patient.[facility] the event this information is protected by the Federal Confidentiality of Alcohol and Drug Abuse Patient Records regulations: The Federal rules restrict any use of the information to criminally investigate or prosecute any alcohol or drug abuse patient.[facility] the event this information is protected by the Federal Confidentiality of Alcohol and Drug Abuse Patient Records regulations: The Federal rules restrict any use of the information to criminally investigate or prosecute any alcohol or drug abuse patient.[facility] Reason for Visit (unrecogniz ed section and content) Reason Comments Consult Reason Onset Date Comments Refill Request 05/08/2023 Reason Comments Thyroid Cancer Specialty Diagnoses / Procedures Referred By Contstephanie t Referred To Contact Diagnoses Thyroid cancer (HCC) Procedures THYROTROPIN INJECTION Azam Guillermo MD [address] [place] [address] [place] [address] [facility] [address] [facility] [place] [address] Referral ID Status Reason Start Date Expiration Date V isits Requested Visits Authorized [id number] Authorized 04/02/2023 07/26/2023 99 99 Reason Comments Prostate Cancer Reason Comments Med Change Request FOR RECORDS PERTAINING TO PATIENTS WHO ARE OR HAVE BEEN ENROLLED IN A CHEMICAL DEPENDENCY/SUBSTANCEABUSE PROGRAM, SOME INFORMATION MAY BE OMITTED. This clinical summary was aggregated from multiple sources. Caution should be exercised in using it in the provision of clinical care. This summary normalizes information from multiple sources, and as a consequence, information in this document may materially change the coding, format and clinical context of patient data. In addition, data may be omitted in some cases. CLINICAL DECISIONS SHOULD BE BASED ON THE PRIMARY CLINICAL RECORDS. [employer] provides no warranty or guarantee of the accuracy or completeness of information in this document.
--- OUTSIDE RECORDS SUMMARY | 2023-09-08 06:43 | XMS_ITS | CCD ---
Author Name Unknown Address [address] [place] [address] Organization [facility] Department Care Team Providers Care Hyperion Analyst Name Role Phone Gael Thomas Primary Care Physician JOSIANE ., DR MAYO Admitting Unavailable HOY [...] Unavailable HOY ., DR MAYO Consulting Unavailable [place], DR DIANA Gonsalez Consulting Unavailable HOY ., [...] Unavailable Hoy Gael CHIN Primary Care Provider [phone] Modesto Guzmán Unavailable MD Modesto Guzmán Attending Provider [phone] MD Gael Thomas Primary Care Provider [phone] MD Modesto Guzmán Attending Provider MD Gael Thomas Primary Care Provider [phone] [...] Medication Allergies] Propensity to adverse reactions (disorder) [facility] Repository (17 sources) Clindamycin; Translations: [CLINDAMYCIN] Drug Allergy 3 [facility] (1 source) Clindamycin Drug Allergy 3 [facility] Repository (1 source) Shellfish; Translations: [SHELLFISH DERIVED] Propensity to adverse reactions to drug (disorder) 3 [facility] Repository Medications Current Medications Medication Drug [...] for 10 days Active polyethylene glycol 3350 498117 mg / potassium chloride 2970 mg / sodium bicarbonate 6740 mg / sodium chloride 5860 mg / sodium sulfate 62110 mg powder for oral solution (1 source) [...] Interpretation Reference Range Facility Follow-Upon 09-04-2023 Follow-Up [id number] Arvind Rm 1955 M Date Provider Department Center 09/04/2023 BRIAN TREVINO HVCVASEMARÍA ELENA [place] [facility] No family history on file Level of Service:56013 [place] OFFICE/OUTPATIENT ESTABLISHED LOW MDM 20 MIN Normal [facility] CNOVon 08-27-2023 CNOV Office Visit (RADTSA ) ARVIND RM ([id number]) 1955 Date Time Provider Department 08/27/23 10:00 [...] by: Azam Guillermo MD cc: Gael Thomas [address] [place] [phone] Joey Rand MD 112 [facility] 130 [facility] [address] Allergies As of Date: 08/27/2023 Noted Allergy Reaction CLINDAMYCIN 04/01/2023 2 - Rash Date Reviewed: 08/27/2023 Reviewed by: Sherie Reich LPN - Fully Assessed Reason for Visit: Thyroid Cancer [879] Primary Visit Diagnosis:Thyroid cancer (HCC) [C73] Order(s):TSH BLD [SQTSH] Order #: [id number] FUTURE T4/THYROXINE BLOOD [SQT4] Order #: [id number] FUTURE THYROGLOBULIN BY LC-MS/MS, SERUM OR PLASMA, FOR THYROGLOBULIN ANTIBODY INTERFERENCE [SQTGMSMS] Order #: [id number] FUTURE Prescriptions as of 08/27/2023 - apixaban (ELIQUIS) 5 mg tab(s) Take 5 mg by mouth every 12 hours. - famotidine ( (more content not included)... Normal [facility] T4 SerPl-mCncon 08-18-2023 T4 [Mass/Vol] 7.1 ug/dL Normal 5.5-10.2 [facility] Comment on above: Order Comment: Speci men Type: BLOOD SPECIMENOrdering Facility: [facility] Address: [address] [place] [address] Performed By: #### 3 026-2, 3016-3 ####[facility] LABCLIA [id number] [facility] [place] [address] [place] TSH SerPl-aCncon 08-18-2023 TSH Qn 0.535 m[IU]/L Normal 0.270-4.200 [facility] Comment on above: Order Comment: Specwaqar men Type: BLOOD SPECIMENOrdering Facility: [facility] Address: [address] [place] [address] Performed By: #### 3 026-2, 3016-3 ####[facility] JUANITA [id number] GABEIndia [address] STATES OF [facility] CNOVon 06-17-2023 CNOV Office Visit (RADTSA ) ARVIND RM ([id number]) 1955 M Date Time Provider Department 06/17/23 [...] by: Azam Guillermo MD cc: Gael Thomas [address] [place] [phone] Joey Rand MD [address] [place] [address] 130 [facility] [address] Allergies As of Date: 06/17/2023 Noted Allergy Reaction CLINDAMYCIN 04/01/2023 2 - Rash Date Reviewed: 06/17/2023 Reviewed by: Aurea Chu RN - Fully Assessed Reason for Visit: Prostate Cancer [590] Primary Visit Diagnosis:Thyroid cancer (HCC) [C73] Order(s):T4/THYROXINE BLOOD [SQT4] Order #: [id number] FUTURE TSH BLD [SQTSH] Order #: [id number] FUTURE Prescriptions as of 06/24/2023 - omeprazole (PRILOSEC) 40 mg capsule Take 40 mg by mouth. - famotidine (PEPCID) 20 mg tablet Take 20 mg by mouth. - levothyroxine (SYNTHROID) 125 mcg tablet Take 1 tablet by mouth once daily. Sta (more content not included)... Normal [facility] thyroid ca whole bodyon 1 08-10-2022 [place] thyroid ca whole body [facility] Main [place] [id number] Nuclear Medicine Report Signed Patient: Arvind Rm MR#: [id number] : 1955 Acct:[id number] Age/Sex: 68 / M ADM Date: 06/03/23 Loc: [place] Room: Type: [facility] Attending Dr: Temo Guillermo MD Copies [...] Pallavi Cline M.D.06/10/2023 4:04 PM Dictation Location: [place] [address] Transcribed By: [facility] 06/10/23 160 Dictated By: Pallavi Cline MD 06/10/23 160 Signed By: 06/10/23 1604 [facility]2023 SEBASTIEN Telephone (RADTSA) ARVIND RM ([id number]) 1955 M Date Time Provider Department 06/05/23 Azam GUILLERMO During your visit today, we recorded the following information about you: Sherie Reich LPN 06/05/2023 1:42 PM Signed Please sign pended Thyroid WBS and fax to [facility] and Nuc Med. ELIJAH Wall Angela, RN 06/08/2023 8:21 AM Signed Order was faxed. Aurea Chu RN Allergies As of Date: 06/05/2023 Noted Allergy Reaction CLINDAMYCIN 04/01/2023 2 - Rash Date Reviewed: 06/02/2023 Reviewed by: Sherie Reich LPN - Fully Assessed Reason for Visit: Orders [681] Primary Visit Diagnosis:Thyroid cancer (HCC) [C73] Order(s):NM THYROID CA WB [8984975] Order #: [id number] FUTURE Prescriptions as of 06/08/2023 - omeprazole [...] Status:Closed by Azam GUILLERMO on 06/05/23 Normal [facility] Thyroglobulin and Thyrogobul in Ab panelon 06-04-2023 Thyroglobulin Ab Qn <4.0 IU/mL [facility] Thyroglobulin, Serum 2.8 ng/mL 1.6 - 5 0.0 ng/mL [facility] CNOVon 06-03-2023 CNOV Office Visit (RADTSA ) ARVIND RM ([id number]) 1955 M Date Time Provider Department 06/03/23 12:15 PM Azam GUILLERMO RADMARQUISEA During your visit today, we recorded the following information about you: Azam Guillermo MD 06/04/2023 1:08 PM Signed PATIENT NAME: Arvind Rm PATIENT : 1955 See note at [facility] Allergies As of Date: 06/03/2023 Noted Allergy Reaction CLINDAMYCIN 04/01/2023 2 - Rash Date Reviewed: 06/02/2023 Reviewed by: Sherie Reich LPN - Fully Assessed Primary Visit Diagnosis:Thyroid cancer (HCC) [C73] Order(s):THYROGLOBULIN , SERUM WITH REFLEX TO IA OR LC-MS/MS [SQTHYRORF] Order #: [id number] FUTURE Prescriptions as of 06/04/2023 - omeprazole [...] Encounter Status:Closed by Azam GUILLERMO on 06/04/23 [facility] tx radpharm oralon 2022 [place] tx radpharm oral [place] [address] Nuclear Medicine Report Signed Patient: Arvind Rm MR#: [id number] : 1955 Acct:[id number] Age/Sex: 68 / M ADM Date: 06/03/23 Loc: [place] Room: Type: [facility] Attending Dr: Temo Guillermo MD Copies [...] MD 06/03/23 1226 Signed By: 08/07/23 1102 [facility] Thyroglobulin and Thyrogobul in Ab panelon 06-03-2023 Thyroglobulin Ab Qn [IU]/mL Normal <4.0 [facility] Comment on above: Order Comment: Filemon mix Type: BLOOD SPECIMENOrdering Facility: [facility] Address: [address] [place] [address] Result Comment: The Thyroglobulin Antibody test was performed using the IS Decisionsel DXI paramagnetic particle chemiluminescent immunoassay method. Results obtained with different assay methods or kits cannot be used interchangeably. Performed By: #### 5 7780-9 ####[facility] LABIA [id number] [place] [address] [place] THYROGLOBULIN, SERUM 2.8 ng/mL Normal 1.6-50.0 [facility] Comment on above: Order Comment: Filemon mix Type: BLOOD SPECIMENOrdering Facility: [facility] Address: [address] [place] [address] Result Comment: The Thyroglobulin test was performed using the Donald EventMama Unicel DXI paramagnetic particle chemiluminescent immunoassay method. Results obtained with different assay methods or kits cannot be used interchangeably. Performed By: #### 5 7780-9 ####[facility] LABIA [id number] [place] [address] [place] CNOVon 06-02-2023 CNOV Office Visit (RADTSA ) GINODANIEKARRIARVIND ([id number]) 1955 M Date Time Provider Department 06/02/23 9:00 AM LAB/PORT RADT MELISSA RITCHIERadha During your visit today, we recorded the following information about you: Temperature Pulse Respiration Blood pressure 97.4 degrees 78/minute 16/minute 132/84 Referring Provider: Azam GUILLERMO [[id number]] Allergies As of Date: 06/02/2023 Noted Allergy [...] Encounter Status:Closed by SHERIE REICH on 06/02/23 [facility] CNOVon 06-01-2023 CNOV Office Visit (RADTSA ) ARVIND RM ([id number]) 1955 M Date Time Provider Department 06/01/23 9:00 AM LAB/PORT RADT MELISSA CRUZ During your visit today, we recorded the following information about you: Temperature Pulse Respiration Blood pressure 97 degrees 68/minute 16/minute 133/86 Weight 80.3 kg Referring Provider: Azam GUILLERMO [[id number]] Allergies As of Date: 06/01/2023 Noted Allergy [...] Encounter Status:Closed by SHERIE REICH on 06/01/23 [facility]-Upon 05-22-2023 Follow-Up [id number] Arvind Rm 1955 M Date Provider Department Center 05/22/2023 EmilMARGY LISS HVCVASENDO [place] [facility] No family history on file Level of Service:80127 [place] OFFICE/OUTPATIENT ESTABLISHED MOD MDM 30-39 MIN Normal [facility] Yovani 04-28-2023 L -- ---- Specimen: [id number] Received: 04/28/23 Status: CINDY Fadi Num: [id number] Spec Type: Surgical Subm Dr: Modesto Guzmán MD Tissues: A Colon Biopsy (CECAL POLYPS) B Colon Biopsy (ASCENDING POLYP) C Colon Biopsy (RECTAL POLYP) Procedures: HE/Harinder Thornton/Paige L4/3 ---- Age/ Patient Sex Location Account Attending Physician ---- Arvind Rm 68/M [id number] Modesto Guzmán MD ---- SPEC NUM: [id number] RECD: 04/28/23 STATUS: JHONNYCecilia APONTE NUM: [id number] NANDO: 04/28/23 DR: Modesto Guzmán MD ENTERED: 04/28/[address] [facility] [address]: SPEC TYPE: Surgical DEPT: S [...] date of and ascending colon ---- Specimen: [id number] Received: 04/28/23 Status: CINDY Aponte Num: [id number] Spec Type: Surgical Subm Dr: Modesto Guzmán MD Tissues: A Colon Biopsy (CECAL POLYPS) B Colon Biopsy (ASCENDING POLYP) C Colon Biopsy (RECTAL POLYP) Procedures: HE/6, Gross/Micro L4/3 ---- Patient: Arvind Rm Cade [id number] (Continued) ---- Specimen: [id number] Received: 04/28/23 (Continued) Gross Description (Continued) Signed (signature on file) Favian Nash MD 04/29/23 0943 ---- Specimen: [id number] Received: 04/28/23 Status: CINDY Aponte Num: [id number] Spec Type: Surgical Subm Dr: Modesto Guzmán MD Tissues: A Colon Biopsy (CECAL POLYPS) B Colon Biopsy (ASCENDING POLYP) C Colon Biopsy (RECTAL POLYP) Procedures: HE/6, Gross/Micro L4/3 ---- Patient: Arvind Rm [id number] (Continued) ---- Specimen: [id number] Received: 04/28/23 (Continued) Gross Description (Continued) are [...] microscopic examination confirms the diagnosis. CPT Codes 90852w5 ---- ---- Specimen: [id number] Received: 04/28/23 Status: CINDY Aponte Num: [id number] Spec Type: Surgical Subm Dr: Modesto Guzmán MD Tissues: A Colon Biopsy (CECAL POLYPS) B Colon Biopsy (ASCENDING POLYP) C Colon Biopsy (RECTAL POLYP) Procedures: HE/6, Gross/Micro L4/3 ---- Patient: Arvind Rm [id number] (Continued) ---- Signed (signature on file) Favian Nash MD 04/29/23 0943 [facility] THYROGLOBULIN BY MASS SPECTR OMETRYon 04-07-2023 Thyroglobulin [Mass/Vol] 1.7 ng/mL 1.3 - 31.8 ng/mL [facility] CNOVon 04-01-2023 CNOV Office Visit (RADTSA ) ARVIND RM ([id number]) 1955 M Date Time Provider Department 04/01/23 [...] Encounter Status:Closed by SHERIE REICH on 04/01/23 [facility] Office Visit (RADTSA ) ARVIND RM ([id number]) 1955 M Date Time Provider Department 04/01/23 [...] HPI ASSESS (more content not included)... Normal [email or web address] ARVIND RM ([id number]) 1955 M Date Time Provider Department 04/01/23 [...] cancer (HCC) [C73] Order(s):I-131SODIUMIO DIDECAP PER MCI [U8677DHC] Order #: [id number] Prescriptions as of 04/08/2023 - apixaban (ELIQUIS) [...] Status:Closed by Azam GUILLERMO on 04/08/23 Normal [facility] THYROGLOBULIN BY MASS SPECTR OMETRYon 04-01-2023 THYROGLOBULIN, LC-MS/MS 1.7 ng/mL Normal 1.3-31.8 [facility] Comment on above: Order Comment: Speci men Type: BLOOD SPECIMENOrdering Facility: [facility] Address: [address] [place], [place] [address] [address] Result Comment: Results obtained with different test [...] developed and its performance characteristics determined by [facility]. It has not been cleared or approved by the US Food and Drug Administration. This test was performed in a CLIA certified laboratory and is intended for clinical purposes. Performed By: [facility] [address] [place] [address] Machine Engraver: Luis Herrera MD, PhD CLIA Number: [id number] Performed By: #### T [facility] ####[facility] [id number] [place] [address] APTTon 03-20-2023 ACTIVATED PARTIAL THROMBOPLASTIN TIME IN PPP BY COAGULATION ASSAY 62.7 Seconds High 25.0-35.0 [facility] Comment on above: Order Comment: Monit or aPTT level 6 hours after rate change, then every 6 hours until therapeutic twice. While therapeutic monitor every AM. Result Comment: Clin ical significance of the APTT is questionable in the presence of heparin. Performed By: #### L AB113 #### [facility] ([facility]) [address] [place] [address] ACTIVATED PARTIAL THROMBOPLASTIN TIME IN PPP BY COAGULATION ASSAY 76.6 Seconds High 25.0-35.0 [facility] Comment on above: Order Comment: Monit or aPTT level 6 hours after rate change, then every 6 hours until therapeutic twice. While therapeutic monitor every AM. Result Comment: Clin ical significance of the APTT is questionable in the presence of heparin. Performed By: #### L AB325 #### [facility] ([facility]) [address] [place] [address] ACTIVATED PARTIAL THROMBOPLASTIN TIME IN PPP BY COAGULATION ASSAY 118.5 Seconds High 25.0-35.0 [facility] Comment on above: Order Comment: Basel ine aPTT before initiating heparin infusion. Result Comment: Clin ical significance of the APTT is questionable in the presence of heparin. Performed By: #### L AB320 #### [facility] ([facility]) [address] [place] [address] BASIC METABOLIC PANELon 08-2 Anion gap [Moles/Vol] 12 mmol/L Normal 7-20 [facility] Comment on above: Performed By: #### L [id number] #### [facility] ([facility]) [address] [place] [address] Calcium [Mass/Vol] 8.7 mg/dL Normal 8.6-10.3 [facility] Comment on above: Performed By: #### L [id number] #### [facility] ([facility]) [address] [place] [address] Chloride [Moles/Vol] 105 mmol/L Normal 98-107 [facility] Comment on above: Performed By: #### L AB113 #### [facility] ([facility]) [address] [place] [address] CO2 [Moles/Vol] 24 mmol/L Normal 21-31 [facility] Comment on above: Performed By: #### L [id number] #### [facility] ([facility]) [address] [place] [address] Creatinine [Mass/Vol] 0.93 mg/dL Normal 0.70-1.30 [facility] Comment on above: Performed By: #### L AB113 #### [facility] ([facility]) [address] [place] [address] GLOMERULAR FILTRATION RATE ML/MIN/1.73 SQ M.PREDICTED 89.4 mL/min/1.73m*2 Normal >60.0 [facility] Comment on above: Result Comment: [facility]???s estimated glomerular filtration rate (eGFR) will [...] individuals. Performed By: #### L AB113 #### [facility] ([facility]) [address] [place] [address] Glucose [Mass/Vol] 125 mg/dL High 70-100 [facility] Comment on above: Performed By: #### L [id number] #### [facility] ([facility]) [address] [place] [address] Potassium [Moles/Vol] 3.8 mmol/L Normal 3.5-5.1 [facility] Comment on above: Performed By: #### L [id number] #### [facility] ([facility]) [address] [place] [address] Sodium [Moles/Vol] 137 mmol/L Normal 136-145 [facility] Comment on above: Performed By: #### L [id number] #### [facility] ([facility]) [address] [place] [address] Urea nitrogen [Mass/Vol] 22 mg/dL Normal 7-25 [facility] Comment on above: Performed By: #### L [id number] #### [facility] ([facility]) [address] [place] [address] UREA NITROGEN/CREATININE (MASS RATIO) IN SER/PLAS 23.7 Normal [facility] Comment on above: Performed By: #### L [id number] #### [facility] ([facility]) [address] [place] [address] CBCon 03-20-2023 Erythrocyte distribution width (RBC) [Ratio] 12.1 % Normal 11.5-15.0 [facility] Comment on above: Performed By: #### L AB294 #### [facility] ([facility]) [address] [place] [address] ERYTHROCYTE MEAN CORPUSCULAR HEMOGLOBIN CONCENTRATION (G/DL) BY AUTOMATED 35.4 g/dL High 32.0-35.0 [facility] Comment on above: Performed By: #### L [id number] #### [facility] ([facility]) [address] [place] [address] Hematocrit (Bld) [Volume fraction] 39.0 % Normal 39.0-55.0 [facility] Comment on above: Performed By: #### L [id number] #### [facility] [address] [place] [address] Hemoglobin (Bld) [Mass/Vol] 13.8 g/dL Normal 13.0-17.0 [facility] Comment on above: Performed By: #### L [id number] #### [facility] [address] [place] [address] MCH (RBC) [Entitic mass] 30.8 pg Normal 27.0-33.0 [facility] Comment on above: Performed By: #### L [id number] #### [facility] [address] [place] [address] MCV (RBC) [Entitic vol] 87.1 fL Normal 82.0-98.0 [facility] Comment on above: Performed By: #### L [id number] #### [facility] [address] [place] [address] PLATELETS (10*3/UL) IN BLOOD AUTOMATED COUNT 205 10*3/uL Normal 150-400 [facility] Comment on above: Performed By: #### L [id number] #### [facility] [address] [place] [address] RBC (Bld) [#/Vol] 4.48 10*6/uL Normal 4.20-5.70 [facility] Comment on above: Performed By: #### L [id number] #### [facility] ([facility]) [address] [place] [address] WBC (Bld) [#/Vol] 8.59 10*3/uL Normal 4.00-10.60 [facility] Comment on above: Performed By: #### L [id number] #### [facility] ([facility]) [address] [place] [address] CBC WITH AUTO DIFFERENTIALon 03-20-2023 Basophils (Bld) [#/Vol] 0.02 10*3/uL Normal 0.00-0.20 [facility] Comment on above: Performed By: #### L [id number] #### [facility] [address] [place] [address] Basophils/100 WBC (Bld) 0.3 % Normal 0.0-1.0 [facility] Comment on above: Performed By: #### L [id number] #### [facility] [address] [place] [address] Eosinophils (Bld) [#/Vol] 0.12 10*3/uL Normal 0.00-0.50 [facility] Comment on above: Performed By: #### L [id number] #### [facility] (BEAKER) [address] [place] [address] Eosinophils/100 WBC (Bld) 1.6 % Normal 0.0-6.0 [facility] Comment on above: Performed By: #### L [id number] #### [facility] ([facility]) [address] [place] [address] Erythrocyte distribution width (RBC) [Ratio] 12.1 % Normal 11.5-15.0 [facility] Comment on above: Performed By: #### L [id number] #### [facility] ([facility]) [address] [place] [address] ERYTHROCYTE MEAN CORPUSCULAR HEMOGLOBIN CONCENTRATION (G/DL) BY AUTOMATED 34.9 g/dL Normal 32.0-35.0 [facility] Comment on above: Performed By: #### L [id number] #### [facility] ([facility]) [address] [place] [address] Hematocrit (Bld) [Volume fraction] 39.2 % Normal 39.0-55.0 [facility] Comment on above: Performed By: #### L [id number] #### [facility] ([facility]) [address] [place] [address] Hemoglobin (Bld) [Mass/Vol] 13.7 g/dL Normal 13.0-17.0 [facility] Comment on above: Performed By: #### L [id number] #### [facility] ([facility]) [address] [place] [address] Immature granulocytes (Bld) [#/Vol] 0.08 10*3/uL Normal 0.00-0.20 [facility] Comment on above: Performed By: #### L [id number] #### [facility] ([facility]) [address] [place] [address] Immature granulocytes/100 WBC (Bld) 1.0 % Normal 0.0-1.0 [facility] Comment on above: Performed By: #### L [id number] #### [facility] ([facility]) [address] [place] [address] Lymphocytes (Bld) [#/Vol] 1.78 10*3/uL Normal 1.20-4.00 [facility] Comment on above: Performed By: #### L [id number] #### [facility] ([facility]) [address] [place] [address] Lymphocytes/100 WBC (Bld) 23.0 % Normal 20.0-45.0 [facility] Comment on above: Performed By: #### L [id number] #### [facility] ([facility]) [address] [place] [address] MCH (RBC) [Entitic mass] 30.6 pg Normal 27.0-33.0 [facility] Comment on above: Performed By: #### L [id number] #### [facility] ([facility]) [address] [place] [address] MCV (RBC) [Entitic vol] 87.5 fL Normal 82.0-98.0 [facility] Comment on above: Performed By: #### L [id number] #### [facility] ([facility]) [address] [place] [address] Monocytes (Bld) [#/Vol] 0.89 10*3/uL Normal 0.10-1.00 [facility] Comment on above: Performed By: #### L [id number] #### [facility] [facility] ([facility] [address] [place] [address] Monocytes/100 WBC (Bld) 11.5 % Normal 5.0-12.0 [facility] Comment on above: Performed By: #### L [id number] #### [facility] ([facility]) [address], [place] [address] Neutrophils (Bld) [#/Vol] 4.85 10*3/uL Normal 1.60-7.60 [facility] Comment on above: Performed By: #### L [id number] #### [facility] ([facility]) [address] [place] [address] Neutrophils/100 WBC (Bld) 62.6 % Normal 40.0-72.0 [facility] Comment on above: Performed By: #### L [id number] #### [facility] ([facility]) [address], [place] [address] NRBC (PER 100 WBCS) BY AUTOMATED COUNT 0.0 % Normal 0 [facility] Comment on above: Performed By: #### L [id number] #### [facility] ([facility]) [address] [place] [address] PLATELETS (10*3/UL) IN BLOOD AUTOMATED COUNT 200 10*3/uL Normal 150-400 [facility] Comment on above: Performed By: #### L [id number] #### [facility] ([facility]) [address] [place] [address] RBC (Bld) [#/Vol] 4.48 10*6/uL Normal 4.20-5.70 [facility] Comment on above: Performed By: #### L [id number] #### [facility] ([facility]) [address] [place] [address] WBC (Bld) [#/Vol] 7.74 10*3/uL Normal 4.00-10.60 [facility] Comment on above: Performed By: #### L [id number] #### [facility] ([facility]) [address] [place] [address] DSon 03-20-2023 DS Admission Admitted 03/19/2023 for extensive RLE DVT Discharge Diagnosis DVT, lower extremity, proximal, acute, right ([facility]) Discharge Disposition Home or Self Care [...] Medications These medications were sent to [facility] - [place], [place] - [address] [place] [address], [facility] [address] apixaban 5 mg tablet apixaban 5 mg tablet Activity Patient currently has no discharge activity orders Diet Patient currently has no discharge diet orders Allergies Clindamycin and Shellfish derived Hospital Course Arvind Rm is a 68 y.o. male presenting to [facility] as a direct admit from [facility] on 03/19 for extensive right lower [...] 05/22/2023 10:15 AM Liss Ji NP HVCVASENDO [place] HeartVAS Normal [facility] HEPARIN LEVELon 03-20-2023 HEPARIN UNFRACTIONATED (U/ML) IN PPP BY CHROMOGENIC METHOD 0.31 IU/mL Normal 0.3-0.7 [facility] Comment on above: Result Comment: [place] roxaban and Apixaban will interfere with the anti Xa assay used to monitor UFH and LMWH. Performed By: #### L [id number] #### [facility] ([facility]) [address] [place] [address] HEPARIN UNFRACTIONATED (U/ML) IN PPP BY CHROMOGENIC METHOD 0.23 IU/mL Low 0.3-0.7 [facility] Comment on above: Result Comment: [place] roxaban and Apixaban will interfere with the anti Xa assay used to monitor UFH and LMWH. Performed By: #### L [id number] #### [facility] ([facility]) [address] [place] [address] HEPARIN UNFRACTIONATED (U/ML) IN PPP BY CHROMOGENIC METHOD 0.34 IU/mL Normal 0.3-0.7 [facility] Comment on above: Result Comment: [place] roxaban and Apixaban will interfere with the anti Xa assay used to monitor UFH and LMWH. Performed By: #### L [id number] #### [facility] ([facility]) [address] [place] [address] HEPARIN UNFRACTIONATED (U/ML) IN PPP BY CHROMOGENIC METHOD 0.51 IU/mL Normal 0.3-0.7 [facility] Comment on above: Order Comment: Check anti-Xa level every 6 hours while on heparin infusion, or per protocol. Result Comment: [place] roxaban and Apixaban will interfere with the anti Xa assay used to monitor UFH and LMWH. Performed By: #### L [id number] #### [facility] ([facility]) [address] [place] [address] MAGNESIUMon 03-20-2023 Magnesium [Mass/Vol] 2.0 mg/dL Normal 1.9-2.7 [facility] Comment on above: Performed By: #### L [id number] #### [facility] ([facility]) [address] [place] [address] PHOSPHORUSon 03-20-2023 Magnesium [Mass/Vol] 3.5 mg/dL Normal 2.5-5.0 [facility] Comment on above: Performed By: #### L [id number] #### [facility] ([facility]) [address] [place] [address] PROTIME-INRon 03-20-2023 INR IN PPP BY COAGULATION ASSAY 1.15 High 0.90-1.10 [facility] Comment on above: Result Comment: ACCC [...] 1995;108:231S-246S. Performed By: #### L [id number] #### [facility] ([facility]) [address] [address] PROTHROMBIN TIME (PT) IN PPP BY COAGULATION ASSAY 14.7 Seconds Normal 12.3-14.8 [facility] Comment on above: Performed By: #### L [id number] #### [facility] ([facility]) [address] [address] BASIC METABOLIC PANELon 08-2 Anion gap [Moles/Vol] 13 mmol/L Normal 7-20 [facility] Comment on above: Performed By: #### L [id number] #### [facility] ([facility]) [address] [address] Calcium [Mass/Vol] 9.1 mg/dL Normal 8.6-10.3 [facility] Comment on above: Performed By: #### L [id number] #### [facility] ([facility]) [address] [address] Chloride [Moles/Vol] 101 mmol/L Normal 98-107 [facility] Comment on above: Performed By: #### L [id number] #### [facility] [address] [facility] [place] [address] [address] CO2 [Moles/Vol] 28 mmol/L Normal 21-31 [facility] Comment on above: Performed By: #### L [id number] #### [facility] [address] [address] Creatinine [Mass/Vol] 0.97 mg/dL Normal 0.70-1.30 [facility] Comment on above: Performed By: #### L [id number] #### [facility] ([facility]) [address] [place] [address] GLOMERULAR FILTRATION RATE ML/MIN/1.73 SQ M.PREDICTED 85.0 mL/min/1.73m*2 Normal >60.0 [facility] Comment on above: Result Comment: [facility]???s estimated glomerular filtration rate (eGFR) will [...] individuals. Performed By: #### L [id number] #### [facility] ([facility]) [address] [place] [address] Glucose [Mass/Vol] 159 mg/dL High 70-100 [facility] Comment on above: Performed By: #### L [id number] #### [facility] ([facility]) [address] [place] [address] Potassium [Moles/Vol] 3.5 mmol/L Normal 3.5-5.1 [facility] Comment on above: Performed By: #### L [id number] #### [facility] ([facility]) [address] [place] [address] Sodium [Moles/Vol] 138 mmol/L Normal 136-145 [facility] Comment on above: Performed By: #### L [id number] #### [facility] ([facility]) [address] [place] [address] Urea nitrogen [Mass/Vol] 22 mg/dL Normal 7-25 [facility] Comment on above: Performed By: #### L [id number] #### [facility] ([facility]) [address] [place] [address] UREA NITROGEN/CREATININE (MASS RATIO) IN SER/PLAS 22.7 Normal [facility] Comment on above: Performed By: #### L [id number] #### [facility] ([facility]) [address] [place] [address] CBC WITH AUTO DIFFERENTIALon 03-19-2023 Basophils (Bld) [#/Vol] 0.04 10*3/uL Normal 0.00-0.20 [facility] Comment on above: Performed By: #### L [id number] #### [facility] ([facility]) [address] [place] [address] Basophils/100 WBC (Bld) 0.5 % Normal 0.0-1.0 [facility] Comment on above: Performed By: #### L [id number] #### [facility] ([facility]) [address] [place] [address] Eosinophils (Bld) [#/Vol] 0.15 10*3/uL Normal 0.00-0.50 [facility] Comment on above: Performed By: #### L [id number] #### [facility] ([facility]) [address] [place] [address] Eosinophils/100 WBC (Bld) 1.7 % Normal 0.0-6.0 [facility] Comment on above: Performed By: #### L [id number] #### [facility] ([facility]) [address] [place] [address] Erythrocyte distribution width (RBC) [Ratio] 12.3 % Normal 11.5-15.0 [facility] Comment on above: Performed By: #### L [id number] #### [facility] ([facility]) [address] [place] [address] ERYTHROCYTE MEAN CORPUSCULAR HEMOGLOBIN CONCENTRATION (G/DL) BY AUTOMATED 34.3 g/dL Normal 32.0-35.0 [facility] Comment on above: Performed By: #### L [id number] #### [facility] [address] [place] [address] [address] Hematocrit (Bld) [Volume fraction] 42.8 % Normal 39.0-55.0 [facility] Comment on above: Performed By: #### L [id number] #### [facility] (BEAKER) [address] [place] [address] Hemoglobin (Bld) [Mass/Vol] 14.7 g/dL Normal 13.0-17.0 [facility] Comment on above: Performed By: #### L [id number] #### [facility] ([facility]) [address] [address] Immature granulocytes (Bld) [#/Vol] 0.09 10*3/uL Normal 0.00-0.20 [facility] Comment on above: Performed By: #### L [id number] #### [facility] ([facility]) [address] [address] Immature granulocytes/100 WBC (Bld) 1.0 % Normal 0.0-1.0 [facility] Comment on above: Performed By: #### L [id number] #### [facility] ([facility]) [address] [place] [address] Lymphocytes (Bld) [#/Vol] 2.02 10*3/uL Normal 1.20-4.00 [facility] Comment on above: Performed By: #### L [id number] #### [facility] ([facility]) [address] [place] [address] Lymphocytes/100 WBC (Bld) 23.3 % Normal 20.0-45.0 [facility] Comment on above: Performed By: #### L [id number] #### [facility] ([facility]) [address] [place] [address] MCH (RBC) [Entitic mass] 30.6 pg Normal 27.0-33.0 [facility] Comment on above: Performed By: #### L [id number] #### [facility] (BEAKER) [address] [place] [address] MCV (RBC) [Entitic vol] 89.2 fL Normal 82.0-98.0 [facility] Comment on above: Performed By: #### L [id number] #### [facility] ([facility]) [address] [place] [address] Monocytes (Bld) [#/Vol] 0.71 10*3/uL Normal 0.10-1.00 [facility] Comment on above: Performed By: #### L [id number] #### [facility] ([facility]) [address] [place] [address] Monocytes/100 WBC (Bld) 8.2 % Normal 5.0-12.0 [facility] Comment on above: Performed By: #### L [id number] #### [facility] ([facility]) [address] [place] [address] Neutrophils (Bld) [#/Vol] 5.67 10*3/uL Normal 1.60-7.60 [facility] Comment on above: Performed By: #### L [id number] #### [facility] ([facility]) [address] [place] [address] Neutrophils/100 WBC (Bld) 65.3 % Normal 40.0-72.0 [facility] Comment on above: Performed By: #### L [id number] #### [facility] ([facility]) [address] [place] [address] NRBC (PER 100 WBCS) BY AUTOMATED COUNT 0.0 % Normal 0 [facility] Comment on above: Performed By: #### L [id number] #### [facility] ([facility]) [address] [place] [address] PLATELETS (10*3/UL) IN BLOOD AUTOMATED COUNT 219 10*3/uL Normal 150-400 [facility] Comment on above: Performed By: #### L [id number] #### [facility] [address] [place] [address] RBC (Bld) [#/Vol] 4.80 10*6/uL Normal 4.20-5.70 [facility] Comment on above: Performed By: #### L [id number] #### [facility] (BEAKER) [address] [place] [address] WBC (Bld) [#/Vol] 8.68 10*3/uL Normal 4.00-10.60 [facility] Comment on above: Performed By: #### L [id number] #### [facility] (BEAKER) [address] [place] [address] CTA AORTA AND BILATERAL ILIO FEMORAL RUNOFF [...] dilated bladder hydronephrosis Electronically signed: Luis Burroughs. [facility] Comment on above: Order Comment: CTA a bdomen and pelvis with venous phase to evaluate DVT [facility] 03-19-2023 -- Attestation signed by May [...] with anticoagulation. [facility] HISTORY AND PHYSICAL History Of Present Illness Arvind Rm is a 68 y.o. male presenting to [facility] as a direct admit from [facility] for extensive right lower extremity DVT. Patient [...] worsened last night/this morning prompting presentation to [place] ED. In ED patient had US of lower extremity finding occlusive thrombus within right posterior tibial vein, peroneal vein, popliteal vein, femoral vein and non-occlusive thrombus within the common femoral vein. Patient was started on heparin and decision was made to transfer to [facility]. Patient assessed on 6AB, endorses pain to right calf, and edema of right lower leg. Patient denies chest pain, shortness of breath, abdominal pain, nausea, vomiting, headache, or changes in vision. Past Medical History He has a past medical history of DVT of leg (deep venous thrombosis) ([facility]) (03/19/2023). Surgical History He has a [...] lower le (more content not included)... Normal [facility] MAGNESIUMon 03-19-2023 Magnesium [Mass/Vol] 2.0 mg/dL Normal 1.9-2.7 [facility] Comment on above: Performed By: #### L [id number] #### [facility] ([facility]) [address] [place] [address] PHOSPHORUSon 03-19-2023 Magnesium [Mass/Vol] 3.7 mg/dL Normal 2.5-5.0 [facility] Comment on above: Performed By: #### L [id number] #### [facility] ([facility]) [address] [place] [address] PROTIME-INRon 03-19-2023 INR IN PPP BY COAGULATION ASSAY 1.19 High 0.90-1.10 [facility] Comment on above: Result Comment: ACCC [...] 1995;108:231S-246S. Performed By: #### L [id number] #### [facility] (ZABRINAAKER) [address] [place] [address] PROTHROMBIN TIME (PT) IN PPP BY COAGULATION ASSAY 15.1 Seconds High 12.3-14.8 [facility] Comment on above: Performed By: #### L [id number] #### [facility] (YENI) [address] [place] [address] Consultation Noteon 01-30-20 Consultation Note [id number] 0CD:127 Normal [facility] US FNA W US GD ADD LESon US FNA W US GD ADD LES Begin Addendum #1 COLLECTED DATE/TIME: 11/11/2022 09:46 EDT Final Diagnosis Report for [facility] [place] (A/B) RIGHT THYROID INFERIOR NODULE: FINE [...] (FNA). 2. Pathology results are pending. Normal [facility] Pathology Noteon 11-10-2022 Pathology Note [id number] 0CD:127 Normal [facility] Outside Colonoscopyon 2022 Outside Colonoscopy [id number] 0CD:127 Normal [facility] US THYROIDon 10-30-2022 US THYROID EXAMINATION: US [...] cm left nodules is recommended TI-RADS: The [employer] TI-RADS committee's white paper recommendations for thyroid lesions classified as TR4 (moderately suspicious) are listed below: > 1.0 cm. Follow-up ultrasound in 1, 2, 3, and 5 years. > 1.5 cm. FNA. J. Am Nando Radiol 2017;14:587-595. TI-RADS: The [employer] TI-RADS committee's white paper recommendations for thyroid lesions classified as TR5 (highly suspicious) are listed below: > 0.5 cm. Annual ultrasound follow-up for up to 5 years. > 1.0 cm. FNA. J. Am Nando Radiol 2017;14:587-595. Electronically authenticated by: DIANA HERNANDEZ Date: 2022-10-30 14:53 Normal [facility] Consent for Procedure/Surger yon 10-23-2022 Consent for Procedure/Surgery [id number] 0CD:127 Normal [facility] Facesheeton 10-23-2022 Facesheet [id number]#1.0 0CD:127 Normal [facility] Pre-Certification Formon Pre-Certification Form [id number]. 00CD:127 Normal [facility] Ambulatory Visit Summaryon 0 10-22-2022 Ambulatory Visit [...] Family history of colon cancer Hyperlipidemia Normal [facility] Physician Referralon 023 Physician Referral [id number] 0CD:127 [facility] PSA, FREE AND TOTAL RATIOon 08-23-2022 % Free PSA 21.0 % [facility] Comment on above: Result Comment: The table [...] men. Performed By: #### P SAFREE #### [facility] [address] [address] [address] Remigio Han Prostate specific Ag [Mass/Vol] 3.1 ng/mL Normal 0.0-4.0 [facility] Comment on above: Result Comment: Cydney VARELA methodology. . According to the [employer], Serum PSA should decrease and [...] disease. Performed By: #### P SAFREE #### [facility] [address] [place], [place] [address] Dr. Remigio Han PSA, Free 0.65 ng/mL Normal N/A [facility] Comment on above: Result Comment: Cydney bergman ECLRAYSHAWN methodology. Performed By: #### P SAFREE #### [facility] [address] [place], [place] [address] Dr. Remigio Han PSA, FREE AND TOTAL RATIOon 02-21-2022 % Free PSA 24.9 % Normal [facility] Comment on above: Result Comment: The [...] men. Performed By: #### P SAFREE #### [facility] [address] [place] [address] Dr. Remigio Han Prostate specific Ag [Mass/Vol] 4.5 ng/mL Critically high 0.0-4.0 [facility] Comment on above: Result Comment: Cydney GARRIDOIA methodology. . According to the [employer], Serum PSA should decrease and [...] disease. Performed By: #### P SAFREE #### [facility] [address] [place] [address] Dr. Remigio Han PSA, Free 1.12 ng/mL Normal N/A [facility] Comment on above: Result Comment: Cydney VARELA methodology. Performed By: #### P SAFREE #### [facility] [address] [place] [address] Dr. Remigio Han INSULINon 02-20-2022 Insulin 14.7 uIU/mL Normal 2.6-24.9 [facility] Comment on above: Performed By: #### I NSULIN #### [facility] [address] [place] [address] Dr. Remigio Han CBC AUTO DIFFon 02-19-2022 BASO # 0.0 103/ul Normal 0.0-0.1 [facility] Comment on above: Performed By: #### C BC #### [facility] [address] [place] [address] Dr. Remigio Han Basophils/100 WBC (Bld) 0.5 % Normal 0.2-2.0 [facility] Comment on above: Performed By: #### C BC #### [facility] [address] [place] [address] Dr. Remigio Han EO # 0.1 103/ul Normal 0.0-0.7 [facility] Comment on above: Performed By: #### C BC #### [facility] [address] [place] [address] Dr. Remigio Han Eosinophils/100 WBC (Bld) 1.5 % Normal 0.9-7.0 [facility] Comment on above: Performed By: #### C BC #### [facility] [address] [place] [address] Dr. Remigio Han Erythrocyte distribution width (RBC) [Ratio] 13.0 % Normal 11.0-15.0 [facility] Comment on above: Performed By: #### C BC #### [facility] [address] [place] [address] Dr. Remigio Han Hematocrit (Bld) [Volume fraction] 48.4 % Normal 42.0-54.0 [facility] Comment on above: Performed By: #### C BC #### [facility] [address] [place] [address] Dr. Remigio Han Hemoglobin (Bld) [Mass/Vol] 16.6 g/dL Normal 14.0-18.0 [facility] Comment on above: Performed By: #### C BC #### [facility] [address] [place] [address] Dr. Remigio Han IG # 0.02 10e3/ul Normal 0.00-0.03 [facility] Comment on above: Performed By: #### C BC #### [facility] [address] [place] [address] Dr. Remigio Han IG % 0.4 % Normal 0.0-0.5 [facility] Comment on above: Performed By: #### C BC #### [facility] [address] [place] [address] Dr. Remigio Han LYMPH # 1.6 103/ul Normal 1.2-3.8 [facility] Comment on above: Performed By: #### C BC #### [facility] [address] [address] [address] Remigio Han Lymphocytes/100 WBC (Bld) 30.0 % Normal 20.5-60.0 [facility] Comment on above: Performed By: #### C BC #### [facility] [address] [address] [address] Remigio Han MANUAL DIFF REQ NO Normal [facility] Comment on above: Performed By: #### C BC #### [facility] [address] [place] [address] Dr. Remigio Han MCH (RBC) [Entitic mass] 30.2 pg Normal 25.9-34.0 [facility] Comment on above: Performed By: #### C BC #### [facility] [address] [place] [address] Dr. Remigio Han MCHC (RBC) [Mass/Vol] 34.3 g/dL Normal 29.9-35.2 [facility] Comment on above: Performed By: #### C BC #### [facility] [address] [place] [address] Dr. Remigio Han MCV (RBC) [Entitic vol] 88.2 fL Normal 80.0-94.0 [facility] Comment on above: Performed By: #### C BC #### [facility] [address] [place] [address] Dr. Remigio Hna MONO # 0.4 103/ul Normal 0.3-0.8 [facility] Comment on above: Performed By: #### C BC #### [facility] [address] [place] [address] Dr. Remigio Han Monocytes/100 WBC (Bld) 8.1 % Normal 1.7-12.0 [facility] Comment on above: Performed By: #### C BC #### [facility] [address] [place] [address] Dr. Remigio Han NEUT # 3.3 103/ul Normal 1.4-6.5 [facility] Comment on above: Performed By: #### C BC #### [facility] [address] [address] [address] Remigio Han Neutrophils/100 WBC (Bld) 59.5 % Normal 43.0-75.0 [facility] Comment on above: Performed By: #### C BC #### [facility] [address] [place] [address] Dr. Remigio Han Platelet mean volume (Bld) [Entitic vol] 9.8 fL Normal 9.5-13.5 [facility] Comment on above: Performed By: #### C BC #### [facility] [address] [address] [address] Remigio Han PLT 217 103/ul Normal 150-450 [facility] Comment on above: Performed By: #### C BC #### [facility] [address] [place] [address] Dr. Remigio Han RBC 5.49 106/ul Normal 4.70-6.10 [facility] Comment on above: Performed By: #### C BC #### [facility] [address] [place] [address] Dr. Remigio Han WBC 5.5 103/ul Normal 4.0-11.0 [facility] Comment on above: Performed By: #### C BC #### [facility] [address] [place] [address] Dr. Remigio Han GLYCOHEMOGLOBIN A1Con 2021 ADA RECOMMENDATION SEE BELOW Normal [facility] Comment on above: Result Comment: ADA RECOMMENDED LIMIT 4.0 - 6.0 ADA THERAPEUTIC TARGET < 7.0 ACTION SUGGESTED > 7.0 Performed By: #### A 1C #### [facility] [address] [place] [address] Dr. Remigio Han Glucose [Mass/Vol] 103 mg/dL Normal [facility] Comment on above: Performed By: #### A 1C #### [facility] [address] [place] [address] Dr. Remigio Han HbA1c (Bld) [Mass fraction] 5.2 % Normal 4.5-6.2 [facility] Comment on above: Performed By: #### A 1C #### [facility] [address] [place], [place] [address] Dr. Remigio Han LIPID PROFILEon 02-19-2022 CHOL-HDL RATIO NORM SEE BELOW Normal [facility] Comment on above: Result Comment: 3.3 - 4.4 LOW RISK 4.4 - 7.1 AVERAGE RISK 7.1 - 11.0 MODERATE RISK >11.0 HIGH RISK Performed By: #### L IPID, CMP ####[facility] [id number] [id number]. Remigio Han Cholesterol [Mass/Vol] 259 mg/dL Critically high <=200 [facility] Comment on above: Performed By: #### L IPID, CMP ####[facility] [id number] [id number]. Remigio Han Cholesterol in HDL [Mass/Vol] 62 mg/dL Critically high 40-60 [facility] Comment on above: Performed By: #### L IPID, CMP ####[facility] [id number] [id number]. Remigio Han Cholesterol in LDL [Mass/Vol] 171.8 mg/dL Normal [facility] Comment on above: Performed By: #### L IPID, CMP ####[facility] [address] [id number]. Remigio Han Cholesterol.total/Ch olesterol in HDL [Mass ratio] 4.2 {ratio} Normal [facility] Comment on above: Performed By: #### L IPID, CMP ####[facility] [address] [id number]. Remigio Han HDL NORMAL > or = 60 mg/dl - LO W CARDIOVASCULAR RISK <40 mg/dl - HIGH CARDIOVASCULAR RISK Normal [facility] Comment on above: Performed By: #### L IPID, CMP ####[facility] [address] [id number]. Remigio Han LDL CALC NORMAL SEE BELOW Normal [facility] Comment on above: Result Comment: <100 mg/dl OPTIMAL 100 - 129 mg/dl NEAR OR ABOVE OPTIMAL 130 - 159 mg/dl BORDERLINE HIGH 160 - 189 mg/dl HIGH >190 mg/dl VERY HIGH Performed By: #### L IPID, CMP ####[facility] [id number] [id number]. Remigio Han Triglyceride [Mass/Vol] 126 mg/dL Normal <=150 [facility] Comment on above: Performed By: #### L IPID, CMP ####[facility] [address] [id number]. Remigio Han VLDL CALC 25.2 mg/dL Normal [facility] Comment on above: Performed By: #### L IPID, CMP ####[facility] [address] [id number]. Remigio Han PROF 14(COMP METB)on 022 Albumin [Mass/Vol] 3.9 g/dL Normal 3.4-5.0 [facility] Comment on above: Performed By: #### L IPID, CMP #### [facility] [address] [address] [address] Remigio Han Albumin/Globulin [Mass ratio] 1.1 {ratio} Normal [facility] Comment on above: Performed By: #### L IPID, CMP #### [facility] [address] [address] [address] Remigio Han ALP [Catalytic activity/Vol] 65 U/L Normal 46-116 [facility] Comment on above: Performed By: #### L IPID, CMP #### [facility] [address] [address] [address] Remigio Han ALT [Catalytic activity/Vol] 25 U/L Normal 16-63 [facility] Comment on above: Performed By: #### L IPID, CMP #### [facility] [address] [address] [address] Remigio Han Anion gap [Moles/Vol] 13.1 mmol/L Normal [facility] Comment on above: Performed By: #### L IPID, CMP #### [facility] [address] [address] [address] Remigio Han AST [Catalytic activity/Vol] 15 U/L Normal 15-37 [facility] Comment on above: Performed By: #### L IPID, CMP #### [facility] [address] [place] [address] Dr. Remigio Han Bilirubin [Mass/Vol] 0.5 mg/dL Normal 0.2-1.0 [facility] Comment on above: Performed By: #### L IPID, CMP #### [facility] [address] [place] [address] Dr. Remigio Han Calcium [Mass/Vol] 9.5 mg/dL Normal 8.5-10.1 [facility] Comment on above: Performed By: #### L IPID, CMP #### [facility] [address] [place] [address] Dr. Remigio Han Chloride [Moles/Vol] 104 mmol/L Normal 98-107 [facility] Comment on above: Performed By: #### L IPID, CMP #### [facility] [address] [place] [address] Dr. Remigio Han CO2 [Moles/Vol] 28.3 mmol/L Normal 21.0-32.0 [facility] Comment on above: Performed By: #### L IPID, CMP #### [facility] [address] [place] [address] Dr. Remigio Han Creatinine [Mass/Vol] 1.05 mg/dL Normal 0.70-1.30 [facility] Comment on above: Performed By: #### L IPID, CMP #### [facility] [address] [place] [address] Dr. Remigio Han EGFR-AF BURUNDIAN >60 Normal >=60 [facility] Comment on above: Performed By: #### L IPID, CMP #### [facility] [address] [place] [address] Dr. Remigio Han EGFR-NON AF [place]UNDIAN >60 Normal >=60 [facility] Comment on above: Performed By: #### L IPID, CMP #### [facility] [address] [place] [address] Dr. Remigio Han Globulin (S) [Mass/Vol] 3.4 g/dL Normal [facility] Comment on above: Performed By: #### L IPID, CMP #### [facility] [address] [place] [address] Dr. Remigio Han Glucose [Mass/Vol] 93 mg/dL Normal 74-106 [facility] Comment on above: Performed By: #### L IPID, CMP #### [facility] [address] [place] [address] Dr. Remigio Han Potassium [Moles/Vol] 4.4 mmol/L Normal 3.5-5.1 [facility] Comment on above: Performed By: #### L IPID, CMP #### [facility] [address] [place] [address] Dr. Remigio Han Protein [Mass/Vol] 7.3 g/dL Normal 6.4-8.2 [facility] Comment on above: Performed By: #### L IPID, CMP #### [facility] [address] [place] [address] Dr. Remigio Han Sodium [Moles/Vol] 141 mmol/L Normal 136-145 [facility] Comment on above: Performed By: #### L IPID, CMP #### [facility] [address] [place] [address] Dr. Remigio Han Urea nitrogen [Mass/Vol] 25.0 mg/dL Critically high 7.0-18.0 [facility] Comment on above: Performed By: #### L IPID, CMP #### [facility] [address] [place] [address] Dr. Remigio Han Urea nitrogen/Creatinine [Mass ratio] 23.8 mg/mg Normal [facility] Comment on above: Performed By: #### L IPID, CMP #### [facility] [address] [place] [address] Dr. Remigio Han Vital Signs Date Time Vital Sign Value Performing Clinician Facility 08-27-2023 09:37-0500 Body temperature 97.5 [degF] HARMONY Guillermo MD Work Phone: [facility] 08-27-2023 09:37-0500 Body weight 86.4 kg HARMONY Guillermo MD Work Phone: [facility] 08-27-2023 09:37-0500 Diastolic blood pressure 80 mm[Hg] HARMONY Guillermo MD Work Phone: [facility] 08-27-2023 09:37-0500 Heart rate 70 /min HARMONY Guillermo MD Work Phone: [facility] 08-27-2023 09:37-0500 Respiratory rate 16 /min HARMONY Guillermo MD Work Phone: [facility] 08-27-2023 09:37-0500 SaO2% (BldA) [Mass fraction] 98 % HARMONY Guillermo MD Work Phone: [facility] 08-27-2023 09:37-0500 Systolic blood pressure 139 mm[Hg] HARMONY Guillermo MD Work Phone: [facility] 06-17-2023 10:19-0500 Body temperature 96.69 [degF] HARMONY Guillermo MD Work Phone: [facility] 06-17-2023 10:19-0500 Body weight 82.1 kg HARMONY Guillermo MD Work Phone: [facility] 06-17-2023 10:19-0500 Diastolic blood pressure 86 mm[Hg] HARMONY Guillermo MD Work Phone: [facility] 06-17-2023 10:19-0500 Heart rate 70 /min HARMONY Guillermo MD Work Phone: [facility] 06-17-2023 10:19-0500 Respiratory rate 18 /min HARMONY Guillermo MD Work Phone: [facility] 06-17-2023 10:19-0500 SaO2% (BldA) [Mass fraction] 98 % HARMONY Guillermo MD Work Phone: [facility] 06-17-2023 10:19-0500 Systolic blood pressure 143 mm[Hg] HARMONY Guillermo MD Work Phone: [facility] 06-02-2023 08:43-0500 Body temperature 97.39 [degF] [facility] [place] Work Phone: [facility] 06-02-2023 08:43-0500 Diastolic blood pressure 84 mm[Hg] [facility] [place] Work Phone: [facility] 06-02-2023 08:43-0500 Heart rate 78 /min [facility] [place] Work Phone: [facility] 06-02-2023 08:43-0500 Respiratory rate 16 /min [facility] [place] Work Phone: [facility] 06-02-2023 08:43-0500 SaO2% (BldA) [Mass fraction] 99 % [facility] [place] Work Phone: [facility] 06-02-2023 08:43-0500 Systolic blood pressure 132 mm[Hg] [facility] [place] Work Phone: [facility] 06-01-2023 08:41-0500 Body temperature 97 [degF] [facility] [place] Work Phone: [facility] 06-01-2023 08:41-0500 Body weight 80.29 kg [facility] [place] Work Phone: [facility] 06-01-2023 08:41-0500 Diastolic blood pressure 86 mm[Hg] [facility] [place] Work Phone: [facility] 06-01-2023 08:41-0500 Heart rate 68 /min [facility] [place] Work Phone: [facility] 06-01-2023 08:41-0500 Respiratory rate 16 /min [facility] [place] Work Phone: [facility] 06-01-2023 08:41-0500 SaO2% (BldA) [Mass fraction] 99 % [facility] [place] Work Phone: [facility] 06-01-2023 08:41-0500 Systolic blood pressure 133 mm[Hg] [facility] [place] Work Phone: [facility] 04-28-2023 09:47-0400 Diastolic blood pressure 74 mm[Hg] MD Gael Thomas Work Phone: [facility] 04-28-2023 09:47-0400 Heart rate 78 /min MD Gael Thomas Work Phone: [facility] 04-28-2023 09:47-0400 Respiratory rate 20 /min MD Gael Thomas Work Phone: [facility] 04-28-2023 09:47-0400 SaO2% (BldA) [Mass fraction] 97 % MD Gael Thomas Work Phone: [facility] 04-28-2023 09:47-0400 Systolic blood pressure 126 mm[Hg] MD Gael Thomas Work Phone: [facility] 04-28-2023 09:32-0400 Inhaled oxygen flow rate 2 L/min MD Gael Thomas Work Phone: [facility] 04-28-2023 07:07-0400 Body height 166.37 cm MD Gael Thoams Work Phone: [facility] 04-28-2023 07:07-0400 Body weight 80.73 kg MD Gael Thomas Work Phone: [facility] 04-01-2023 12:33-0400 Body height 166.4 cm HARMONY Guillermo MD Work Phone: [facility] 04-01-2023 12:33-0400 Body temperature 98.01 [degF] HARMONY Guillermo MD Work Phone: [facility] 04-01-2023 12:33-0400 Body weight 78.93 kg HARMONY Guillermo MD Work Phone: [facility] 04-01-2023 12:33-0400 Diastolic blood pressure 78 mm[Hg] HARMONY Guillermo MD Work Phone: [facility] 04-01-2023 12:33-0400 Heart rate 86 /min HARMONY Guillermo MD Work Phone: [facility] 04-01-2023 12:33-0400 Respiratory rate 16 /min HARMONY Guillermo MD Work Phone: [facility] 04-01-2023 12:33-0400 SaO2% (BldA) [Mass fraction] 97 % HARMONY Guillermo MD Work Phone: [facility] 04-01-2023 12:33-0400 Systolic blood pressure 115 mm[Hg] HARMONY Guillermo MD Work Phone: [facility] 10-22-2022 15:26-0400 Blood Pressure Location Violeta NILL [facility] [place] 10-22-2022 15:26-0400 Diastolic blood pressure 80 mm[Hg] Violeta NILL [facility] [place] 10-22-2022 15:26-0400 Heart rate 74 /min Violeta NILL [facility] [place] 10-22-2022 15:26-0400 Respiratory rate 16 /min Violeta NILL [facility] [place] 10-22-2022 15:26-0400 Systolic blood pressure 122 mm[Hg] Violeta NILL [facility] [place] Encounters Encounter Date Encounter Type Care Provider Facility Start: 09-04-2023 ambulatory BRIAN Epps [facility] Start: 08-27-2023 Refill Azam calderon MD Work Phone: [facility] Comment on above: Med Change Request Start: 08-27-2023 End: 08-27-2023 ambulatory GAEL THOMAS Facility:[facility] [place] Start: 08-27-2023 End: 08-27-2023 Patient encounter procedure Azam Guillermo MD Work Phone: [facility] Comment on above: Thyroid cancer (HCC) (Primary Dx) Start: 08-26-2023 End: 08-27-2023 ambulatory LISS JI [facility] Start: 08-19-2023 End: 08-19-2023 ambulatory JOEY Elder TIMMIS Not Available Start: 08-18-2023 End: 08-18-2023 ambulatory GAEL THOMAS Facility:[facility] [place] Start: 07-15-2023 End: 07-15-2023 ambulatory JOEY H TIMMIS Not Available Start: 07-01-2023 End: 07-01-2023 ambulatory JOEY H TIMMIS Not Available Start: 06-17-2023 End: 06-17-2023 ambulatory GAEL THOMAS Facility:[facility] [place] Start: 06-17-2023 End: 06-17-2023 Patient encounter procedure Azam Guillermo MD Work Phone: Radiation Oncology Comment on above: Thyroid cancer (HCC) (Primary Dx) Start: 06-03-2023 End: 06-03-2023 ambulatory GAEL THOMAS Facility:[facility] [place] Start: 06-03-2023 End: 06-03-2023 ambulatory Temo Guillermo Facility:[facility] Start: 06-03-2023 End: 06-03-2023 Patient encounter procedure Azam Guillermo MD Work Phone: Radiation Oncology Comment on above: Thyroid cancer (HCC) (Primary Dx) Start: 06-03-2023 End: 06-03-2023 ambulatory MD Gael Thomas Work Phone: [facility] Work Phone: Start: 06-03-2023 End: 06-03-2023 Patient encounter procedure MD Gael Thomas Work Phone: [facility] Work Phone: Start: 06-02-2023 End: 06-02-2023 ambulatory GAEL THOMAS Facility:[facility] [place] Start: 06-02-2023 End: 06-02-2023 Patient encounter procedure [facility] Work Phone: Radiation Oncology Comment on above: Thyroid cancer (HCC) (Primary Dx) Start: 06-01-2023 End: 06-01-2023 ambulatory GAEL THOMAS Facility:[facility] [place] Start: 06-01-2023 End: 06-01-2023 Patient encounter procedure [facility] [place] [place] Work Phone: Radiation [facility]cology Comment on above: Thyroid cancer (HCC) (Primary Dx) Start: 05-22-2023 ambulatory [facility] Start: 05-08-2023 Refill G Oracio calderon MD Work Phone: Radiation Oncology Comment on above: Refill Request Start: 04-28-2023 End: 04-28-2023 ambulatory Imad Asaad Facility:[facility] Start: 04-28-2023 End: 04-28-2023 Admission to same day surgery center MD Gael Thomas Work Phone: [facility] Work Phone: Start: 04-28-2023 End: 04-28-2023 ambulatory MD Gael Thomas Work Phone: [facility] Work Phone: Start: 04-21-2023 End: 04-21-2023 ambulatory Imad Asaad Other [facility] Other Start: 04-21-2023 Telephone encounter Imad Asaad [facility] Start: 04-09-2023 Patient encounter procedure [facility] Provider [facility] Department Start: 04-02-2023 Orders Only G Oracio calderon MD Work Phone: Radiation Oncology Start: 04-01-2023 End: 04-01-2023 ambulatory GAEL THOMAS Facility:[facility] [place] Start: 04-01-2023 End: 04-01-2023 Patient encounter procedure [facility] [place] [place] Work Phone: Radiation Oncology Comment on above: Thyroid cancer (HCC) (Primary Dx) Start: 03-20-2023 Evaluation and management of inpatient ANNALISE MCCRAY [facility] Start: 03-19-2023 Evaluation and management of inpatient [facility] Start: 03-19-2023 Evaluation and management of inpatient GLEN DUPONT [facility] Start: 03-19-2023 End: 03-20-2023 Evaluation and management of inpatient [facility] Start: 11-18-2022 ambulatory Violeta TINOCO Facility : [facility] Start: 11-11-2022 End: 11-11-[address] GAEL THOMAS . Facility:[facility] Start: 11-05-2022 End: 11-06-[address] VIOLETA TINOCO . Facility:[facility] Start: 10-30-2022 End: 10-31-[address] GAEL THOMAS . Facility: Start: 10-22-2022 End: 10-23-2022 ambulatory [facility] Start: 10-22-2022 End: 10-22-2022 Patient encounter procedure [...] Comment on above: Performed By: #### P [facility] ####[address] [address]MgCindi Han Colonoscopy Violeta TINOCO Plan of Treatment Date Care Activity Detail Author Start: 02-19-2027 Prostate Cancer Screening Discussion Prostate Cancer Screening Discussion [facility] Start: 02-19-2027 Prostate specific antigen measurement Prostate Cancer Screening Discussion [facility] Start: 03-20-2026 Diabetes Screening Diabetes Screenin g [facility] Start: 12-26-2023 End: 03-26-2024 THYROGLOBULIN BY LC-MS/MS, SERUM OR PLASMA, FOR THYROGLOBULIN ANTIBODY INTERFERENCE THYROGLOBULIN BY LC-MS/MS, SERUM OR PLASMA, FOR THYROGLOBULIN ANTIBODY INTERFERENCE Lab Routine Thyroid cancer (HCC) Expected: 12/26/2023, Expires: 03/26/2024 [facility] Work Phone: Comment on above: Expected: 12/26/2023 , Expires: 03/26/2024 Start: 12-26-2023 End: 03-26-2024 Thyrotropin [Units/volume] in Serum or Plasma TSH BLD Lab Routine Thyroid cancer (HCC) Expected: 12/26/2023, Expires: 03/26/2024 [facility] Work Phone: Comment on above: Expected: 12/26/2023 , Expires: 03/26/2024 Start: 12-26-2023 End: 03-26-2024 Thyroxine (T4) [Mass/volume] in Serum or Plasma T4/THYROXINE BLOOD Lab Routine Thyroid cancer (HCC) Expected: 12/26/2023, Expires: 03/26/2024 [facility] Work Phone: Comment on above: Expected: 12/26/2023 , Expires: 03/26/2024 Start: 08-27-2023 End: 11-26-2023 Thyrotropin [Units/volume] in Serum or Plasma TSH BLD Lab Routine Thyroid cancer (HCC) Expected: 08/27/2023 (Approximate), Expires: 11/26/2023 [facility] Work Phone: Comment on above: Expected: 08/27/2023 (Approximate), Expires: 11/26/2023 Start: 08-27-2023 End: 11-26-2023 Thyroxine (T4) [Mass/volume] in Serum or Plasma T4/THYROXINE BLOOD Lab Routine Thyroid cancer (HCC) Expected: 08/27/2023 (Approximate), Expires: 11/26/2023 [facility] Work Phone: Comment on above: Expected: 08/27/2023 (Approximate), Expires: 11/26/2023 Start: 07-27-2023 Advance Directive Discussion Advance Directive Discussion [facility] Start: 07-27-2023 Depression Assessment Depression Ass essment [facility] Start: 06-10-2023 Radionuclide localization of tumor, whole body NM thyroid ca whole body [facility] Start: 06-03-2023 Oral radionuclide therapy NM tx radpharm oral [facility] Start: 04-28-2023 [facility] Start: 04-01-2023 End: 06-01-2023 THYROGLOBULIN BY MASS SPECTROMETRY THYROGLOBULIN BY MASS SPECTROMETRY Lab Routine Thyroid cancer (HCC) Expected: 04/01/2023, Expires: 06/01/2023 [facility] Work Phone: Comment on above: Expected: 04/01/2023 , Expires: 06/01/2023 Start: 03-27-2023 Covid-19 Vaccine ( season) Covid-19 Vaccine ( season) [facility] Start: 03-27-2023 Influenza vaccination C [facility] Start: 07-27-2022 ADVANCE DIRECTIVE DISCUSSION ADVANCE DIRECTIVE DISCUSSION [facility] Start: 07-27-2022 DEPRESSION ASSESSMENT DEPRESSION ASS ESSMENT [facility] Start: 05-19-2022 COVID-19 VACCINE (5 - Pfizer series) COVID-19 VACCINE (5 - Pfizer series) [facility] Start: 2020 Pneumococcal Vaccine : 65+ (1 - PCV) Pneumococcal Vaccine: 65+ (1 - PCV) [facility] Start: 2020 Pneumococcal Vaccine : 65+ (1 of 1 - PCV) Pneumococcal Vaccine: 65+ (1 of 1 - PCV) [facility] Start: 2020 PNEUMOCOCCAL: 65+ (1 - PCV) PNEUMOCOCCAL: 65+ (1 - PCV) [facility] Start: 2015 RSV Vaccine (1 - 1-d ose 60+ series) RSV Vaccine (1 - 1-dose 60+ series) [facility] Start: 2010 PROSTATE CANCER SCREENING DISCUSSION PROSTATE CANCER SCREENING DISCUSSION [facility] Start: 2005 SHINGRIX VACCINE (1 of 2) SHINGRIX VACCINE (1 of 2) [facility] Start: 2000 COLOGUARD (FIT-DNA) COLOGUARD (FIT-D NA) [facility] Start: 2000 Colonoscopy COLONOSCOPY [facility] Start: 2000 COLORECTAL CANCER SCREENING COLORECTAL CANCER SCREENING [facility] Start: [address] COLONOGRAPHY [facility] [place] Start: 2000 DIABETES SCREEN [facility]EN [facility] Start: 2000 Diabetes Screening Diabetes Screenin g [facility] Start: 2000 FECAL OCCULT BLOOD FECAL OCCULT BLOO D [facility] Start: 2000 Screening for malign ant neoplasm of colon [facility] Start: 2000 SIGMOIDOSCOPY SIGMOIDOSCOPY [facility] Start: 1990 Lipid 1996 panel - S john or Plasma Lipid Screening [facility] Start: 1990 Lipid panel Lipid Screening [facility] Start: 1990 LIPID SCREEN LIPID SCREEN [facility] Start: 1974 Urine microalbumin profile [facility] Start: 1973 HEPATITIS C SCREENING HEPATITIS C [facility] Start: 1973 Hepatitis C screening Hepatitis C [facility] Start: 1955 ABDOMINAL AORTIC ANEURYSM SCREENING ABDOMINAL AORTIC ANEURYSM SCREENING [facility] Start: 1955 Abdominal aortic aneurysm screening Abdominal Aortic Aneurysm Screening [facility] Patient Education Colon polyps Diverticulosis Hemorrhoids (DC) [facility] Work Phone: End: 04-30-2024 Rp therapy oral administration NM THERAPY THYROID I-131 Radiology Routine Thyroid cancer (HCC) 1 Occurrences starting 04/01/2023 until 04/30/2024 [facility] Work Phone: Comment on above: 1 Occurrences starti ng 04/01/2023 until 04/30/2024 [facility] Immunizations Immunization Date Immunization Notes Care Provider Marsha moreno 03-24-2022 SARS-CoV-2 mRNA (wnblsaclxfc-enmb-wytz ose) vaccine Violeta TINOCO [facility] [place] 10-16-2021 SARS-CoV-2 mRNA (kcxtmfqeact-srbd-bqkz ose) vaccine Violeta TINOCO [facility] [place] 04-17-2021 SARS-CoV-2 (COVID-19 ) mRNA BNT-162b2 vax Violeta AMEZCUAL [facility] [place] 03-27-2021 SARS-CoV-2 (COVID-19 ) mRNA BNT-162b2 vax Violeta TINOC[facility] [place] NEGATED: Highlighted row has not occurred!10-22-2022 influenza virus vaccine, unspecified formulation Violeta TINOCO [facility] [place] Payers Date Payer Category Payer Self-pay 2020 Medicare HU[employer]NA MEDICARE HU[employer]NA MEDICARE PPO [id number] 2020-Present [phone] [address] [address] [place] [address] PPO [id number] 1959 Medicare [id number] 1955 Unknown [id number] 2..[id number] 1955 Unknown [id number] 2.16.840.1.570191.3.579.2.593 1955 Unknown [id number] 2..840.1.022851.3.579.2.593 1955 Unknown [id number] 2.16.840.1.834903.3.579.2.593 1955 Unknown [id number] 2.16.840.1.300057.3.579.2.593 1955 Unknown [id number] 2.16.840.1.312296.3.579.2.727 1955 Unknown [id number] 2.16.840.1.764492.3.579.2.727 1955 Unknown [id number] 2.16.840.1.537431.3.579.2.727 1955 Unknown [id number] 2.16.840.1.681894.3.579.2.727 1955 Unknown [id number] 2.16.840.1.233631.3.579.2.125 9 1955 Unknown [id number] 2.16.840.1.158796.3.579.2.125 9 1955 Unknown [id number] 2.16.840.1.927484.3.579.2.125 9 Unknown [id number] 2.16.840.1.715246.3.579.2.531 Unknown [id number] 2.16.840.1.084017.3.579.2.531 Social History Date Type Detail Facility Start: 10-22-2022 End: 04-01-2023 Tobacco smoking status Ex-smoker (finding) [facility] [place] Tobacco smoking status Never [facility] [place] Start: 04-01-2023 End: 06-17-2023 Sex Assigned At Male Chucky Rader [facility] End: 07-27-1982 History of tobacco use Current smoker [facility] End: 07-27-1982 History of tobacco use Cigarette Smoker [facility] Start: 04-01-2023 End: 06-17-2023 Cigarettes smoked current (pack per day) - Reported 0.5 [facility] Start: 04-01-2023 Tobacco use and exposure Smokeless tobacco non-user [facility] Start: 04-01-2023 End: 08-27-2023 Alcohol intake Ex-drinker (finding) [facility] Start: 1955 Sex Assigned At Not on file [facility] Start: 1955 Sex Assigned At Male Yamilka [facility] Goals Date Patient Goal Desired [...] past 36 hour(s)). No follow-ups on file. [facility] 08-27-2023 Note HNO ID: [id number] Author: Azam GUILLERMO MD Service: ? Author [...] by: Azam Guillermo MD cc: Gael Thomas [address] [place] [address] Joey Rand MD [address] [place] [address] [facility] 08-27-2023 History of Present illness Narrative Radiation [...] Azam Guillermo MD cc: Gael Thomas [address] [place] [address] Joey Rand MD [address] [place] [address] [address] [facility] [address] documented in this encounter [facility] 06-17-2023 Note HNO ID: [id number] Author: Azam Guillermo MD Service: ? Author [...] Guillermo MD cc: Gael Dawson Josiane [address] [place] [address] Joey Rand MD [address] [place] [address] 130 [facility] [address] [facility] 06-17-2023 History of Present illness Narrative Radiation [...] by: Azam Guillermo MD cc: Gael [address] [place] [address] Joey Rand MD [address] [facility] 130 [facility] [address] documented in this encounter [facility] 06-03-2023 Note HNO ID: [id number] Author: Azam Guillermo MD Service: ? Author Type: Physician Type: Progress Notes Filed: 06/04/2023 1:08 PM Note Text: PATIENT NAME: Arvind Rm PATIENT : 1955 See note at [facility] 06-03-2023 History of Present illness Narrative PATIENT NAME: Arvind Rm PATIENT : 1955 See note at [facility] documented in this encounter [facility] 05-22-2023 Note Subjective Patient ID: Arvind Rm is a 68 y.o. male who presents for No chief complaint on file.. HPI 68 y.o. male with history of RLE DVT, seen at [facility] on 03/19. Patient has no [...] past 36 hour(s)). No follow-ups on file. [facility] 05-22-2023 Note Subjective Patient ID: Arvind [...] past 36 hour(s)). No follow-ups on file. [facility] 04-28-2023 History and physical note Note Date/Time April 28, 2023 8: 05am [facility] [address] [place] [address] Gastroenterology H&P Signed Patient: Arvind Rm MR#: [id number] : 1955 Acct:[id number] Age/Sex: 68 / M Adm Date: 3 Loc: Room: Type: [facility] Attending Dr: Modesto Guzmán MD Copies to: [...] signed by Modesto Guzmán MD> 04/28/[address] [facility] Work Phone: [phone] [facility]* Sherie Reich LPN - [...] assist. Sherie Reich LPN [facility]2023 NoteHNO ID: [id number] Author: Azam Guillermo MD Service: ? Author [...] soft tissues with c (more content not included)...[facility] 04-01-2023 History of Present illness Narrative* Azam Guillermo MD - 04/01/2023 12:23 PM EDT [...] Azam Guillermo MD cc: Gael Thomas [address] [place] [address] Joey Rand MD [address] [place] [address] [facility]-2023 Note03/20/23 1246 Admission Assessment Questions Verify insurance [...] He has no history of HHC or SNF.[facility]08-25-2023 Note Attestation signed by May Gonzales [...] operative intervention. [facility] Vascular Surgery DAILY PROGRESS NOTE Subjective No [...] Vascular Surgery Service General Surgery Resident, PGY-1 03/20/23[facility]04-12-2023 NoteOPERATIVE NOTE OPERATION DATE: 11/05/2022 PREOPERATIVE [...] within one year. CC: Gael Thomas M.D.[facility] [id number] NoteChief Complaint consultation for screening colonoscopy HPI [...] inactivated - Not Given Patient Refuses SARSCoV2 mRNA(ijnfdwtwx-jmzp-pnlubl) vac 03/24/2022 Recorded SARSCoV2 mRNA(svkhmjifd-nnzf-tkbwqu) vac 10/16/2021 Recorded SARS-CoV-2 (COVID-19) mRNA BNT-162b2 vax 04/17/2021 Recorded SARS-CoV-2 (COVID-19) mRNA BNT-162b2 vax 03/27/2021 RecordedCincinnati Va Medical CenterComment on above:Result Comment: Electronically Signed By: DAVIDA CHIN, Violeta Vallecillo\Date and Time Signed: 10/22/22 16:00 EDTEvaluation + Plan note No data available for this section [facility] [place] Evaluation note* Diagnosis Thyroid cancer (HCC)- Primary Malignant neoplasm of thyroid gland [facility]* Diagnosis Thyroid cancer (HCC)- Primary Malignant neoplasm of thyroid gland documented in this encounter [facility]Eval[facility] noteNo InformationNort [facility] [place] Other Evaluation noteNo assessment information available [facility] Work Phone: Evaluation note* Diagnosis Thyroid cancer (HCC)- Primary Malignant neoplasm of thyroid gland [facility]* Diagnosis Thyroid cancer (HCC)- Primary Malignant neoplasm of thyroid gland documented in this encounter [facility]* Diagnosis Thyroid cancer (HCC)- Primary Malignant neoplasm of thyroid gland documented in this encounter [facility]* Diagnosis Thyroid cancer (HCC)- Primary Malignant neoplasm of thyroid gland documented in this encounter [facility]* Diagnosis Thyroid cancer (HCC)- Primary Malignant neoplasm of thyroid gland documented in this encounter [facility] general Narrative - Reported* Type Description Date Surgical History thyroidectomy [facility] Discharge instructions No data available for this section [facility] Discharge instructions Additional Instructions DISCHARGE INSTRUCTIONS [...] NOT operate machinery such as power tools, [employer] mowers, SGB blowers, sewing machines, etc. for 24 hours. [...] years. -Follow up with PCP. -Office number [phone]. [facility] Work Phone: Progress note No data available for this section [facility] [place] Reason for referral (narrative)* Diagnostic Procedure Only (Routine) - Pending Review Specialty Diagnoses / Procedures Referred By Contac t Referred To Contact MOLECULAR & FUNCTIONAL IMAGING Diagnoses Thyroid cancer (HCC) Procedures NM THERAPY THYROID I-131 RP THERAPY ORAL ADMINISTRATION Azam Guillermo MD [address] [place] [address] [place] [address] Molecular & Functional Imaging [address] [place] [address] Referral ID Status Reason Start Date Expiration Date Visits Requested Visits Authorized [id number] Pending Review Auto-Generat ed Referral 04/01/2023 04/30/2024 1 1 [facility] Summary Purpose Family History No Family History [...] team informatio n (unrecognized section and content) Hyperion Analyst Relationship Specialty Start Date End Date Gael Thomas MD [address] [place] [address] PCP - General Family Medicine 04/01/23 Hyperion Analyst Relationship Specialty Start Date End Date Gael Thomas MD [address] [place] [address] PCP - General Family Medicine 04/01/23 Hyperion Analyst Relationship Specialty Start Date End Date Gael Thomas MD [address] [place] [address] PCP - General Family Medicine 04/01/23 Team Status: Active Member Role Status Dates Gael Thomas MD Primary Care Provider Active Team Status: Inactive Member Role Status Dates Modesto Guzmán MD Attending Provider Active Gael Thomas MD Primary Care Provider Active Hyper[employer] Analyst Relationship Specialty Start Date End Date Gael Thomas MD [address] [place] [address] PCP - General Family Medicine 04/01/23 Hyperion Analyst Relationship Specialty Start Date End Date Gael Thomas MD [address] [place] [address] PCP - General Family Medicine 04/01/23 Team Status: Inactive Member Role Status Dates Temo Guillermo MD Attending Provider Active Gael Thomas MD Primary Care Provider Active Hyperion Analyst Relationship Specialty Start Date End Date Gael Thomas MD [address] [facility] [place] [address] PCP - General Family Medicine 04/01/23 Hyperion Analyst Relationship Specialty Start Date End Date Gael Thomas MD [address] [facility] [place] [address] PCP - General Family Medicine 04/01/23 Hyperion Analyst Relationship Specialty Start Date End Date Gael Thomas MD [address] [place] [facility] [address] PCP - General Family Medicine 04/01/23 (unrecognized sect ion and content) No Status Records FoundNo Status Records FoundNo Status Records FoundNo Status Records FoundNo Status Records FoundNo Status Records Found INFORMATION SOURCE (unrecogn ized section and content) DATE CREATED AUTHOR [facility]2022 [facility] DATE CREATED AUTHOR AUTHOR'S ORGANIZ ATION 01/29/2023 [facility] DATE CREATED AUTHOR AUTHOR'S ORGANIZ ATION 08/08/2023 [facility] DATE CREATED AUTHOR AUTHOR'S ORGANIZ ATION 08/20/2023 [facility] DATE CREATED AUTHOR AUTHOR'S ORGANIZ ATION 08/28/2023 [facility] DATE CREATED AUTHOR AUTHOR'S ORGANIZ ATION 09/05/2023 [facility] Source Comments (unrecognize d section and content) In the event this informatio n is protected by the Federal Confidentiality of Alcohol and Drug Abuse Patient Records regulations: The Federal rules restrict any use of the information to criminally investigate or prosecute any alcohol or drug abuse patient.[facility] CenterIn the event this information is protected by the Federal Confidentiality of Alcohol and Drug Abuse Patient Records regulations: The Federal rules restrict any use of the information to criminally investigate or prosecute any alcohol or drug abuse patient.[facility] CenterIn the event this information is protected by the Federal Confidentiality of Alcohol and Drug Abuse Patient Records regulations: The Federal rules restrict any use of the information to criminally investigate or prosecute any alcohol or drug abuse patient.[facility] CenterIn the event this information is protected by the Federal Confidentiality of Alcohol and Drug Abuse Patient Records regulations: The Federal rules restrict any use of the information to criminally investigate or prosecute any alcohol or drug abuse patient.[facility] CenterIn the event this information is protected by the Federal Confidentiality of Alcohol and Drug Abuse Patient Records regulations: The Federal rules restrict any use of the information to criminally investigate or prosecute any alcohol or drug abuse patient.[facility] CenterIn the event this information is protected by the Federal Confidentiality of Alcohol and Drug Abuse Patient Records regulations: The Federal rules restrict any use of the information to criminally investigate or prosecute any alcohol or drug abuse patient.[facility] CenterIn the event this information is protected by the Federal Confidentiality of Alcohol and Drug Abuse Patient Records regulations: The Federal rules restrict any use of the information to criminally investigate or prosecute any alcohol or drug abuse patient.[facility] CenterIn the event this information is protected by the Federal Confidentiality of Alcohol and Drug Abuse Patient Records regulations: The Federal rules restrict any use of the information to criminally investigate or prosecute any alcohol or drug abuse patient.[facility] CenterIn the event this information is protected by the Federal Confidentiality of Alcohol and Drug Abuse Patient Records regulations: The Federal rules restrict any use of the information to criminally investigate or prosecute any alcohol or drug abuse patient.[facility] CenterIn the event this information is protected by the Federal Confidentiality of Alcohol and Drug Abuse Patient Records regulations: The Federal rules restrict any use of the information to criminally investigate or prosecute any alcohol or drug abuse patient.[facility] CenterIn the event this information is protected by the Federal Confidentiality of Alcohol and Drug Abuse Patient Records regulations: The Federal rules restrict any use of the information to criminally investigate or prosecute any alcohol or drug abuse patient.[facility] CenterIn the event this information is protected by the Federal Confidentiality of Alcohol and Drug Abuse Patient Records regulations: The Federal rules restrict any use of the information to criminally investigate or prosecute any alcohol or drug abuse patient.[facility] CenterIn the event this information is protected by the Federal Confidentiality of Alcohol and Drug Abuse Patient Records regulations: The Federal rules restrict any use of the information to criminally investigate or prosecute any alcohol or drug abuse patient.[facility] Reason for Visit (unrecogniz ed section and content) Reason Comments Consult Reason Onset Date Comments Refill Request 05/08/2023 Reason Comments Thyroid Cancer Specialty Diagnoses / Procedures Referred By Contstephanie t Referred To Contact Diagnoses Thyroid cancer (HCC) Procedures THYROTROPIN INJECTION Azam Guillermo MD [address] [place] [address] [place] [address] [facility] [address] [facility] [place] [address] Referral ID Status Reason Start Date Expiration Date V isits Requested Visits Authorized [id number] Authorized 04/02/2023 07/26/2023 99 99 Reason Comments [...] BE BASED ON THE PRIMARY CLINICAL RECORDS. [employer] provides no warranty or guarantee of the accuracy or completeness of information in this document.
[2023-09-08 06:55] LABS: Basophils Percent Auto 0.8 % (0.2-2.0); Eosinophils Absolute Auto 0.1 10^3/uL (0.0-0.7); Eosinophils Percent Auto 2.8 % (0.9-7.0); Hematocrit 45.5 % (42.0-54.0); Hemoglobin 15.7 g/dL (14.0-18.0); Immature Granulocytes Abs Auto 0.01 10^3/uL (0.00-0.03); Immature Granulocytes Pct Auto 0.2 % (0.0-0.5); Lymphocytes Absolute Auto 1.2 10^3/uL (1.2-3.8); Lymphocytes Percent Auto 24.6 % (20.5-60.0); Mean Corpuscular HGB Conc 34.5 g/dL (29.9-35.2); Mean Platelet Volume 9.1 fL (9.5-13.5); Monocytes Absolute Auto 0.5 10^3/uL (0.3-0.8); Monocytes Percent Auto 10.2 % (1.7-12.0); Neutrophils Absolute Auto 3.1 10^3/uL (1.4-6.5); Neutrophils Percent Auto 61.4 % (43.0-75.0); Platelet Count 202 10^3/uL (150-450); Red Blood Count 5.23 10^6/uL (4.70-6.10); Red Cell Distribution Width 13.5 % (11.0-15.0)
[2023-09-08 07:10] LABS: Estimated Average Glucose 103 mg/dL; Glycohemoglobin A1C 5.2 % (4.5-6.2)
[2023-09-08 08:08] LABS: Alanine Aminotransferase 41 U/L (16-63); Albumin Level 3.6 g/dL (3.4-5.0); Alkaline Phosphatase 61 U/L (46-116); Aspartate Amino Transferase 21 U/L (15-37); BUN Creatinine Ratio 21.2; Bilirubin Total 0.6 mg/dL (0.2-1.0); Chloride 103 mmol/L (98-107); Chol HDL Ratio 3.9; Cholesterol 259 mg/dL (<=200); Estimated GFR (African America >60 (>=60); Estimated GFR (Non-African Ame >60 (>=60); Globulin 3.5 g/dL; Glucose 94 mg/dL (74-106); HDL Cholesterol 66 mg/dL (40-60); Sodium 139 mmol/L (136-145); Total Protein 7.1 g/dL (6.4-8.2); Triglycerides 83 mg/dL (<=150); VLDL CHOLESTEROL 16.6 mg/dL
[2023-09-09 04:07] LABS: PSA, Free 0.64 ng/mL; Prostate Specific Ag 2.9 ng/mL (0.0-4.0)
== END 2023-09-08 06:42 | disposition home or self-care (01) ==
LOC: LAB 06:41
PROVIDERS: PCP Family Medicine; Visit Provider Family Medicine
DX: Z00.00 Encounter for general adult medical examination without abnormal findings (principal); E11.9 Type 2 diabetes mellitus without complications; R53.83 Other fatigue; E78.00 Pure hypercholesterolemia, unspecified; Z12.5 Encounter for screening for malignant neoplasm of prostate; R97.20 Elevated prostate specific antigen [PSA]
CPT/HCPCS: 36415; 80053; 80061; 83036; 84153; 84154; 85025

== ENCOUNTER 2023-12-08 07:29 | Outpatient (OUT) | payer MEDICARE, SELFPAY ==
--- OUTSIDE RECORDS SUMMARY | 2023-12-08 07:35 | XMS_ITS | CCD ---
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 Role Phone Gael Thomas Primary Care [...] Unavailable NILL ., DR MCDANIEL Consulting Unavailable KARENAREGAN Consulting Unavailable OLIVERTOAN PERDOMO Consulting Unavailable HOY ., DR MAYO Admitting Unavailable HOY ., DR MAYO Attending Unavailable HOY ., DR MAYO Primary Care Unavailable HOY ., DR MAYO Consulting Unavailable TUSCARORA, DR DIANA Gonsalez Consulting Unavailable HOY ., DR MAYO Admitting Unavailable HOY ., DR MAYO Attending Unavailable HOY ., DR MAYO Primary Care Unavailable HOY ., DR MAYO Consulting Unavailable NILLVioleta Attending Unavailable NILLVioleta Attending Unavailable HoyGael Referring Unavailable NILL, Violeta Albert Attending Unavailable NILL, Violeta Albert Referring Unavailable NILL, Violeta Albert Attending Unavailable Hoy Gael CHIN Primary Care Provider [phone] Ramirez, Immalik Unavailable MD Modesto Guzmán Attending Provider MD Gael Thomas Primary Care Provider [phone] MD Modesto Guzmán Attending Provider MD Gael Thomas Primary Care Provider [phone] MD Temo Guillermo Attending Provider Asaad, Imad Admitting Unavailable Hoy, Gael M Primary Care Unavailable Asaad, Imad Attending Unavailable Temo Guillermo Attending Unavailable Temo Guillermo Admitting Unavailable Hoy, Gael M Primary Care Unavailable HOY, GAEL M Primary Care Unavailable Azam GUILLERMO Referring Unavailable HOY, GAEL M Primary Care Unavailable JOEY MEADOWS Referring Unavaila ble HOY, GAEL M Primary Care Unavailable Azam GUILLERMO Attending Unavailable HOY, GAEL M Primary Care Unavailable Azam GUILLERMO Attending Unavailable HOY, GAEL M Primary Care Unavailable HOY, GAEL M Primary Care Unavailable Azam GUILLERMO Attending Unavailable HOY, GAEL M Primary Care Unavailable Azam GUILLERMO Attending Unavailable HOY, GAEL M Primary Care Unavailable HOY, GAEL M Primary Care Unavailable MICHEL G ORACIO Referring Unavailable LISS JI Referring Unavailable LISS JI Attending Unavailable KOJO FREITAS Referring Unavailable NAZZAL, MUNIER Admitting Unavailable NAZZAL, MUNIER Attending Unavailable BRIAN MANZO Attending Unavailable ANNALISE MCCRAY Referring Unavailable GLEN DUPONT Referring Unavailable NAZZAL, MUNIER Referring Unavailable NAZZAL, MUNIER Referring Unavailable Gael Thomas MD Primary Care Provider [phone] JOEY MEADOWS Attending Unavailable JOEY MEADOWS Attending Unavailable JOEY MEADOWS Attending Unavailable JOEY MEADOWS H Attending Unavailable Allergies Allergy Classification Reported Allergen(s) Allergy Type Date of Onset Reaction(s) Facility (1 source) No Known Medication Allergies; Translations: [No Known Medication Allergies] Propensity to adverse reactions (disorder) [facility] Repository (18 sources) Clindamycin; Translations: [CLINDAMYCIN] Drug Allergy 3 [facility] (1 source) Clindamycin Drug Allergy 3 [facility] Repository (1 source) Shellfish; Translations: [SHELLFISH DERIVED] Propensity to adverse reactions to drug (disorder) 3 [facility] Repository Medications Current Medications Medication Drug Class(es) Dates Sig (Normalized) Sig (Original) Ascorbic Acid (1 source) Vitamin C Vitamin C Active cefuroxime 500 mg oral tablet (1 source) Cephalosporin Antibacterial take 1 tablet by mouth every twelve hours Cefuroxime Axetil 500 MG 1 tablet Orally Twice a day for 10 day(s) Active Magnesium (1 source) take 1 tablet by mouth once daily Magnesium 250 MG 1 tablet with a meal Orally Once a day Active Multi For Him 50+ (1 source) Multi For Him 50 + Active Multi Vitamins oral tablet (1 source) Start: 10-22-2022 take 1 tablet by mouth once daily Multi Vitamins oral tablet 1 tab(s), Oral, Daily, Refill(s) 0 Start Date: 10/22/22 Status: Ordered mupirocin 0.02 mg/mg topical ointment (1 source) RNA Synthetase Inhibitor Antibacterial Start: 06-02-2020 Mupirocin 2 % 1 application to affected area Externally once per day for 7 days May, Active naproxen sodium 550 mg oral tablet (1 source) Nonsteroidal Anti-inflammatory Drug take 1 tablet by mouth every twelve hours Anaprox DS 550 MG 1 tablet Orally Twice a day for 10 days Active polyethylene glycol 3350 089502 mg / potassium chloride 2970 mg / sodium bicarbonate 6740 mg / sodium chloride 5860 mg / sodium sulfate 01745 mg powder for oral solution (1 source) Osmotic Laxative Start: 01-19-2023 PEG-3350/Electrol ytes 236 GM as directed Orally once daily for 1 days Dec, Active Vitamin D3 (1 source) Vitamin D3 Activ e Zinc (1 source) Zinc 15 Active Completed/Discontinued Medications Medication Drug Class(es) Dates Sig (Normalized) Sig (Original) apixaban 5 mg oral tablet (16 sources) Factor Xa Inhibitor Start: 03-20-2023 take [...] hours. cefTRIAXone (1 source) Cephalosporin Antibacterial Start: 06-02-20 20 Rocephin 500 mg May, 500 mg famotidine 20 mg oral tablet (6 sources) Histamine-2 Receptor Antagonist Start: 05-25-20 End: 08-23-19 take 1 tablet by mouth once daily at bedtime famotidine (PEPCID) 20 mg tablet Take 1 tablet by mouth daily at bedtime. 0 08/17/2023 Active Comment on above: Take 20 mg by mouth. Take 1 tablet by mireya th daily at bedtime. levothyroxine sodium 0.125 mg oral tablet (19 sources) l-Thyroxine Start: 08-31-19 End: 10-05-19 take 1 tablet by mouth once daily levothyroxine (SYNTHROID) 125 mcg tablet Take 1 tablet by mouth once daily. 90 tablet 2 10/05/2023 Active Start: 04-01-2023 End: 08-31-2023 take 1 tablet by mouth once daily levothyroxine (SYNTHROID) 125 mcg tablet Take 1 tablet by mouth once daily. Start 06/04/23 30 tablet 2 05/08/2023 08/31/2023 Discontinued Comment on above: Take 1 tablet by mireya th once daily. Start 06/04/23 take 1 tablet by mireya th once daily Take 1 tablet by mireya th once daily. liothyronine sodium 0.025 mg oral tablet (12 sources) l-Triiodothyronine End: liothyronine (CYTOMEL) 25 mcg tablet Comment on above: 1 tablet on an empty stomach Orally BID omeprazole 40 mg delayed release oral capsule (6 sources) Proton Pump Inhibitor Start: End: omeprazole [...] oral tablet (12 sources) Phenothiazine Start: End: 024 take 1 tablet by mouth every eight [...] Interpretation Reference Range Facility Follow-Upon 09-04-2023 Follow-Up [id number] Arvind Rm 1955 M Date Provider Department Center 09/04/2023 BRIAN TREVINO HVCVASENDO [place] [facility] No family history on file Level of Service:87744 [place] OFFICE/OUTPATIENT ESTABLISHED LOW MDM 20 MIN Normal [facility] CNOVon 08-27-2023 CNOV Office Visit (RADTSA ) ARVIND RM ([id number]) 1955 Date Time Provider Department 08/27/23 10:00 [...] by: Azam Guillermo MD cc: Gael Thomas [facility] [address] Joey Meadows MD [address] [place] [phone] Allergies As of Date: 08/27/2023 Noted Allergy Reaction CLINDAMYCIN 04/01/2023 2 - Rash Date Reviewed: 08/27/2023 Reviewed by: Sherie Reich LPN - Fully Assessed Reason for Visit: Thyroid Cancer [879] Primary Visit Diagnosis:Thyroid cancer (HCC) [C73] Order(s):TSH BLD [SQTSH] Order #: [id number] FUTURE T4/THYROXINE BLOOD [SQT4] Order #: [id number] FUTURE THYROGLOBULIN BY LC-MS/MS, SERUM OR PLASMA, FOR THYROGLOBULIN ANTIBODY INTERFERENCE [SQTGMSMS] Order #: [id number] FUTURE Prescriptions as of 08/27/2023 - apixaban (ELIQUIS) 5 mg tab(s) Take 5 mg by mouth every 12 hours. - famotidine ( (more content not included)... Normal [facility] T4 SerPl-mCncon 08-18-2023 T4 [Mass/Vol] 7.1 ug/dL Normal 5.5-10.2 [facility] Comment on above: Order Comment: Filemon mix Type: BLOOD SPECIMENOrdering Facility: [facility] Address: [address] [place] [address] Performed By: #### 3 026-2, 3016-3 ####[facility] LABCLIA [id number] [place] [address] [place] TSH SerPl-aCncon 08-18-2023 TSH Qn 0.535 m[IU]/L Normal 0.270-4.200 [facility] Comment on above: Order Comment: Filemon mix Type: BLOOD SPECIMENOrdering Facility: [facility] Address: [address] [place] [address] [place] [address] Performed By: #### 3 026-2, 3016-3 ####[facility] JUANITA [id number] [id number] [address] [place] CNOVon 06-17-2023 CNOV Office Visit (RADTSA ) ARVIND RM ([id number]) 1955 M Date Time Provider Department 06/17/23 [...] determine appropriate TSH suppression. Signed by: Azam Guillremo MD cc: Gael Thomas [address] [place] [phone] Joey Meadows MD [address] [place] [address] [address] [facility] [address] Allergies As of Date: 06/17/2023 Noted Allergy Reaction CLINDAMYCIN 04/01/2023 2 - Rash Date Reviewed: 06/17/2023 Reviewed by: Aurea Chu RN - Fully Assessed Reason for Visit: Prostate Cancer [590] Primary Visit Diagnosis:Thyroid cancer (HCC) [C73] Order(s):T4/THYROXINE BLOOD [SQT4] Order #: [id number] FUTURE TSH BLD [SQTSH] Order #: [id number] FUTURE Prescriptions as of 06/24/2023 - omeprazole (PRILOSEC) 40 mg capsule Take 40 mg by mouth. - famotidine (PEPCID) 20 mg tablet Take 20 mg by mouth. - levothyroxine (SYNTHROID) 125 mcg tablet Take 1 tablet by mouth once daily. Sta (more content not included)... Normal [facility] thyroid ca whole bodyon 1 08-10-2022 [place] thyroid ca whole body [facility] Main [place] [id number] Nuclear Medicine Report Signed Patient: Arvind Rm MR#: [id number] : 1955 Acct:[id number] Age/Sex: 68 / M ADM Date: 06/03/23 Loc: [place] Room: Type: [facility] Attending Dr: Temo Guillermo MD Copies to: MD Pallavi Patelan,MD Ordering Provider: Azam Guillermo MD Date of [...] Pallavi Cline M.D.06/10/2023 4:04 PM Dictation Location: [place] [address] Transcribed By: [facility] 06/10/23 160 Dictated By: Pallavi Cline MD 06/10/23 1601 Signed By: 06/10/23 1604 [facility]23 CNPN Telephone (RADTSA) ARVIND RM ([id number]) 1955 Date Time Provider Department 06/05/23 Azam GUILLERMO During your visit today, we recorded the following information about you: Sherie Reich LPN 06/05/2023 1:42 PM Signed Please sign pended Thyroid WBS and fax to [facility] and [facility] Med. ELIJAH Wall Angela, RN 06/08/2023 8:21 AM Signed Order was faxed. Aurea Chu RN Allergies As of Date: 06/05/2023 Noted Allergy Reaction CLINDAMYCIN 04/01/2023 2 - Rash Date Reviewed: 06/02/2023 Reviewed by: Sherie Reich LPN - Fully Assessed Reason for Visit: Orders [681] Primary Visit Diagnosis:Thyroid cancer (HCC) [C73] Order(s):NM THYROID CA WB [5889246] Order #: [id number] FUTURE Prescriptions as of 06/08/2023 - omeprazole [...] Status:Closed by Azam GUILLERMO on 06/05/23 Normal [facility] Thyroglobulin and Thyrogobul in Ab panelon 06-04-2023 Thyroglobulin Ab Qn <4.0 IU/mL [facility] Thyroglobulin, Serum 2.8 ng/mL 1.6 - 5 0.0 ng/mL [facility] CNOVon 06-03-2023 CNOV Office Visit (RADTSA ) ARVIND RM ([id number]) 1955 M Date Time Provider Department 06/03/23 12:15 PM Azam GUILLERMO During your visit today, we recorded the following information about you: Azam Guillermo MD 06/04/2023 1:08 PM Signed PATIENT NAME: Arvind Rm PATIENT : 1955 See note at [facility] Allergies As of Date: 06/03/2023 Noted Allergy Reaction CLINDAMYCIN 04/01/2023 2 - Rash Date Reviewed: 06/02/2023 Reviewed by: Sherie Reich LPN - Fully Assessed Primary Visit Diagnosis:Thyroid cancer (HCC) [C73] Order(s):THYROGLOBULIN , SERUM WITH REFLEX TO IA OR LC-MS/MS [SQTHYRORF] Order #: [id number] FUTURE Prescriptions as of 06/04/2023 - omeprazole [...] Encounter Status:Closed by Azam GUILLERMO on 06/04/23 [facility] tx radpharm oralon 2022 [place] tx radpharm oral [place] [address] Nuclear Medicine Report Signed Patient: Arvind Rm MR#: [id number] : 1955 Acct:[id number] Age/Sex: 68 / M ADM Date: 06/03/23 Loc: [place] Room: Type: [facility] Attending Dr: Temo Guillermo MD Copies [...] MD 06/03/23 1226 Signed By: 08/07/23 1102 [facility] Thyroglobulin and Thyrogobul in Ab panelon 06-03-2023 Thyroglobulin Ab Qn [IU]/mL Normal <4.0 [facility] Comment on above: Order Comment: Filemon mix Type: BLOOD SPECIMENOrdering Facility: [facility] Address: [address] [address] Result Comment: The Thyroglobulin Antibody test was performed using the [employer] DXI paramagnetic particle chemiluminescent immunoassay method. Results obtained with different assay methods or kits cannot be used interchangeably. Performed By: #### 5 7780-9 ####[facility] [id number] [place] [address] [place] THYROGLOBULIN, SERUM 2.8 ng/mL Normal 1.6-50.0 [facility] Comment on above: Order Comment: Filemon mix Type: BLOOD SPECIMENOrdering Facility: [facility] Address: [address] [address] Result Comment: The Thyroglobulin test was performed using the [employer] DXI paramagnetic particle chemiluminescent immunoassay method. Results obtained with different assay methods or kits cannot be used interchangeably. Performed By: #### 5 7780-9 ####[facility] LABIA [id number] [place] [address] [place] CNOVon 06-02-2023 CNOV Office Visit (RADTSA ) ARVIND RM ([id number]) 1955 M Date Time Provider Department 06/02/23 9:00 AM LAB/PORT RADT MELISSA RITCHIERadha During your visit today, we recorded the following information about you: Temperature Pulse Respiration Blood pressure 97.4 degrees 78/minute 16/minute 132/84 Referring Provider: Azam GUILLERMO [[id number]] Allergies As of Date: 06/02/2023 Noted Allergy [...] Encounter Status:Closed by SHERIE REICH on 06/02/23 [facility] CNOVon 06-01-2023 CNOV Office Visit (RADTSA ) ARVIND RM ([id number]) 1955 M Date Time Provider Department 06/01/23 9:00 AM LAB/PORT RADT MELISSA NANCY During your visit today, we recorded the following information about you: Temperature Pulse Respiration Blood pressure 97 degrees 68/minute 16/minute 133/86 Weight 80.3 kg Referring Provider: Azam GUILLERMO [[id number]] Allergies As of Date: 06/01/2023 Noted Allergy [...] Encounter Status:Closed by SHERIE REICH on 06/01/23 Normal [facility] Follow-Upon 05-22-2023 Follow-Up [id number] Arvind Rm 1955 M Date Provider Department Center 05/22/2023 LISS HU [facility]CVASENDO [facility] No family history on file Level of Service:45104 [place] OFFICE/OUTPATIENT ESTABLISHED MOD MDM 30-39 MIN Normal [facility] Yovani 04-28-2023 L -- ---- Specimen: [id number] Received: 04/28/23 Status: CINDY Fadi Num: [id number] Spec Type: Surgical Subm Dr: Modesto Guzmán MD Tissues: A Colon Biopsy (CECAL POLYPS) B Colon Biopsy (ASCENDING POLYP) C Colon Biopsy (RECTAL POLYP) Procedures: HE/Hillary, Harinder/Paige L4/3 ---- Age/ Patient Sex Location Account Attending Physician ---- Arvind Rm 68/M [id number] Modesto Guzmán MD ---- SPEC NUM: [id number] RECD: 04/28/23 STATUS: CINDY APONTE NUM: [id number] NANDO: 04/28/23 DR: Modesto Guzmán MD ENTERED: 04/28/23 [facility] DR: SPEC TYPE: Surgical DEPT: S ORDERED: [...] date of and ascending colon ---- Specimen: [id number] Received: 04/28/23 Status: CINDY Aponte Num: [id number] Spec Type: Surgical Subm Dr: Modesto Guzmán MD Tissues: A Colon Biopsy (CECAL POLYPS) B Colon Biopsy (ASCENDING POLYP) C Colon Biopsy (RECTAL POLYP) Procedures: HE/6, Gross/Micro L4/3 ---- Patient: Arvind Rm [id number] (Continued) ---- Specimen: [id number] Received: 04/28/23 (Continued) Gross Description (Continued) Signed (signature on file) Favian Nash MD 04/29/23 0943 ---- Specimen: [id number] Received: 04/28/23 Status: CINDY Aponte Num: [id number] Spec Type: Surgical Subm Dr: Modesto Guzmán MD Tissues: A Colon Biopsy (CECAL POLYPS) B Colon Biopsy (ASCENDING POLYP) C Colon Biopsy (RECTAL POLYP) Procedures: JOEL/Hillary, Harinder/Paige L4/3 ---- Patient: Arvind Rm [id number] (Continued) ---- Specimen: [id number] Received: 04/28/23 (Continued) Gross Description (Continued) are two baltazar tissues measuring 0.1 cm and 0.3 cm. Entirely submitted in one cassette lab elekristie B1. C. Received in formalin labeled with [...] microscopic examination confirms the diagnosis. CPT Codes 03502n9 ---- ---- Specimen: [id number] Received: 04/28/23 Status: CINDY Aponte Num: [id number] Spec Type: Surgical Subm Dr: Modesto Guzmán MD Tissues: A Colon Biopsy (CECAL POLYPS) B Colon Biopsy (ASCENDING POLYP) C Colon Biopsy (RECTAL POLYP) Procedures: HE/6, Harinder/Paige L4/3 ---- Patient: Arvind Rm [id number] (Continued) ---- Signed (signature on file) Favian Nash MD 04/29/2343 [facility] THYROGLOBULIN BY MASS SPECTR OMETRYon 04-07-2023 Thyroglobulin [Mass/Vol] 1.7 ng/mL 1.3 - 31.8 ng/mL [facility] CNOVon 04-01-2023 CNOV Office Visit (RADTSA ) ARVIND RM ([id number]) 1955 M Date Time Provider Department 04/01/23 2:00 PM LAB/PORT RADIsaiah CRUZ During your visit today, we recorded [...] Encounter Status:Closed by SHERIE REICH on 04/01/23 [facility] CN Office Visit (RADTSA ) ARVIND RM ([id number]) 1955 M Date Time Provider Department 04/01/23 1:00 PM Azam GUILLERMO During your visit today, we recorded the following information about you: Temperature Pulse Respiration Blood pressure 98 degrees 86/minute 16/minute 115/78 Weight Height 78.9 kg 1.664 m Azam Guillermo MD 04/08/2023 10:50 AM Signed Radiation Oncology - New Patient/Consult Note PATIENT NAME: Arvind Rm PATIENT : 1955 REQUESTING PROVIDER: Dr. Meadows Primary Site: Thyroid Date of Diagnosis: March [...] HPI ASSESS (more content not included)... Normal [facility] 04-01-2023 [employer] [facility] [employer] [facility] [employer] Telephone ([employer]) ARVIND RM ([id number]) 1955 M Date Time Provider Department 04/01/23 [...] cancer (HCC) [C73] Order(s):I-131SODIUMIO DIDECAP PER MCI [[id number]] Order #: [id number] Prescriptions as of 04/08/2023 - apixaban (ELIQUIS) [...] Status:Closed by Azam GUILLERMO on 04/08/23 Normal [facility] THYROGLOBULIN BY MASS SPECTR OMETRYon 04-01-2023 THYROGLOBULIN, LC-MS/MS 1.7 ng/mL Normal 1.3-31.8 [facility] Comment on above: Order Comment: Speci men Type: BLOOD SPECIMENOrdering Facility: [facility] Address: [address] [place] [phone] Result Comment: Results obtained with different test [...] developed and its performance characteristics determined by [facility]. It has not been cleared or approved by the US Food and Drug Administration. This test was performed in a CLIA certified laboratory and is intended for clinical purposes. Performed By: [facility] [address] [place] [address] Slip Filler: Luis Herrera MD, PhD CLIA Number: [id number] Performed By: #### T [facility] ####[employer] AustraliaIA [id number] [place] [address] APTTon 03-20-2023 ACTIVATED PARTIAL THROMBOPLASTIN TIME IN PPP BY COAGULATION ASSAY 62.7 Seconds High 25.0-35.0 [facility] Comment on above: Order Comment: Monit or aPTT level 6 hours after rate change, then every 6 hours until therapeutic twice. While therapeutic monitor every AM. Result Comment: Clin ical significance of the APTT is questionable in the presence of heparin. Performed By: #### L AB103 #### [facility] ([facility]) [address] [place] [address] ACTIVATED PARTIAL THROMBOPLASTIN TIME IN PPP BY COAGULATION ASSAY 76.6 Seconds High 25.0-35.0 [facility] Comment on above: Order Comment: Monit or aPTT level 6 hours after rate change, then every 6 hours until therapeutic twice. While therapeutic monitor every AM. Result Comment: Clin ical significance of the APTT is questionable in the presence of heparin. Performed By: #### L AB325 #### [facility] ([facility]) [address] [place] [address] ACTIVATED PARTIAL THROMBOPLASTIN TIME IN PPP BY COAGULATION ASSAY 118.5 Seconds High 25.0-35.0 [facility] Comment on above: Order Comment: Basel ine aPTT before initiating heparin infusion. Result Comment: Clin ical significance of the APTT is questionable in the presence of heparin. Performed By: #### L AB113 #### [facility] ([facility]) [address] [place] [address] BASIC METABOLIC PANELon 08-2 Anion gap [Moles/Vol] 12 mmol/L Normal 7-20 [facility] Comment on above: Performed By: #### L AB15 #### [facility] ([facility]) [address] [place] [address] Calcium [Mass/Vol] 8.7 mg/dL Normal 8.6-10.3 [facility] Comment on above: Performed By: #### L AB15 #### [facility] ([facility]) [address] [place] [address] Chloride [Moles/Vol] 105 mmol/L Normal 98-107 [facility] Comment on above: Performed By: #### L AB15 #### [facility] ([facility]) [address] [place] [address] CO2 [Moles/Vol] 24 mmol/L Normal 21-31 [facility] Comment on above: Performed By: #### L AB15 #### [facility] ([facility]) [address] [place] [address] Creatinine [Mass/Vol] 0.93 mg/dL Normal 0.70-1.30 [facility] Comment on above: Performed By: #### L AB15 #### [facility] ([facility]) [address] [place] [address] GLOMERULAR FILTRATION RATE ML/MIN/1.73 SQ M.PREDICTED 89.4 mL/min/1.73m*2 Normal >60.0 [facility] Comment on above: Result Comment: [facility]???s estimated glomerular filtration rate (eGFR) will [...] group of individuals. Performed By: #### L AB15 #### [facility] ([facility]) [address] [place] [address] Glucose [Mass/Vol] 125 mg/dL High 70-100 [facility] Comment on above: Performed By: #### L AB15 #### [facility] ([facility]) [address] [place] [address] Potassium [Moles/Vol] 3.8 mmol/L Normal 3.5-5.1 [facility] Comment on above: Performed By: #### L AB15 #### [facility] ([facility]) [address] [place] [address] Sodium [Moles/Vol] 137 mmol/L Normal 136-145 [facility] Comment on above: Performed By: #### L AB15 #### [facility] ([facility]) [address] [place] [address] Urea nitrogen [Mass/Vol] 22 mg/dL Normal 7-25 [facility] Comment on above: Performed By: #### L AB15 #### [facility] ([facility]) [address] [address] UREA NITROGEN/CREATININE (MASS RATIO) IN SER/PLAS 23.7 Normal [facility] Comment on above: Performed By: #### L AB15 #### [facility] ([facility]) [address] [address] CBCon 03-20-2023 Erythrocyte distribution width (RBC) [Ratio] 12.1 % Normal 11.5-15.0 [facility] Comment on above: Performed By: #### L AB294 #### [facility] ([facility]) [address] [address] ERYTHROCYTE MEAN CORPUSCULAR HEMOGLOBIN CONCENTRATION (G/DL) BY AUTOMATED 35.4 g/dL High 32.0-35.0 [facility] Comment on above: Performed By: #### L AB294 #### [facility] ([facility]) [address] [place] [address] Hematocrit (Bld) [Volume fraction] 39.0 % Normal 39.0-55.0 [facility] Comment on above: Performed By: #### L AB294 #### [facility] ([facility] [address] [place] [address] Hemoglobin (Bld) [Mass/Vol] 13.8 g/dL Normal 13.0-17.0 [facility] Comment on above: Performed By: #### L [id number] #### [facility] ([facility] [address] [address] MCH (RBC) [Entitic mass] 30.8 pg Normal 27.0-33.0 [facility] Comment on above: Performed By: #### L [id number] #### [facility] (BEAKER) [address] [address] MCV (RBC) [Entitic vol] 87.1 fL Normal 82.0-98.0 [facility] Comment on above: Performed By: #### L [id number] #### [facility] [address] [place] [id number] PLATELETS (10*3/UL) IN BLOOD AUTOMATED COUNT 205 10*3/uL Normal 150-400 [facility] Comment on above: Performed By: #### L [id number] #### [facility] ([facility]) [address] [place] [address] RBC (Bld) [#/Vol] 4.48 10*6/uL Normal 4.20-5.70 [facility] Comment on above: Performed By: #### L [id number] #### [facility] ([facility]) [address] [place] [address] WBC (Bld) [#/Vol] 8.59 10*3/uL Normal 4.00-10.60 [facility] Comment on above: Performed By: #### L [id number] #### [facility] ([facility]) [address] [place] [address] CBC WITH AUTO DIFFERENTIALon 03-20-2023 Basophils (Bld) [#/Vol] 0.02 10*3/uL Normal 0.00-0.20 [facility] Comment on above: Performed By: #### L [id number] #### [facility] ([facility] [address] [place] [address] Basophils/100 WBC (Bld) 0.3 % Normal 0.0-1.0 [facility] Comment on above: Performed By: #### L [id number] #### [facility] (BEAKER) [address] [place] [address] Eosinophils (Bld) [#/Vol] 0.12 10*3/uL Normal 0.00-0.50 [facility] Comment on above: Performed By: #### L [id number] #### [facility] ([facility]ER) [address] [place] [address] Eosinophils/100 WBC (Bld) 1.6 % Normal 0.0-6.0 [facility] Comment on above: Performed By: #### L [id number] #### [facility] ([facility]) [address] [place] [address] Erythrocyte distribution width (RBC) [Ratio] 12.1 % Normal 11.5-15.0 [facility] Comment on above: Performed By: #### L [id number] #### [facility] ([facility]) [address] [place] [address] ERYTHROCYTE MEAN CORPUSCULAR HEMOGLOBIN CONCENTRATION (G/DL) BY AUTOMATED 34.9 g/dL Normal 32.0-35.0 [facility] Comment on above: Performed By: #### L [id number] #### [facility] ([facility]) [address] [place] [address] Hematocrit (Bld) [Volume fraction] 39.2 % Normal 39.0-55.0 [facility] Comment on above: Performed By: #### L [id number] #### [facility] ([facility]) [address] [place] [address] Hemoglobin (Bld) [Mass/Vol] 13.7 g/dL Normal 13.0-17.0 [facility] Comment on above: Performed By: #### L [id number] #### [facility] ([facility]) [address] [address] Immature granulocytes (Bld) [#/Vol] 0.08 10*3/uL Normal 0.00-0.20 [facility] Comment on above: Performed By: #### L [id number] #### [facility] ([facility] [address] [place] [address] Immature granulocytes/100 WBC (Bld) 1.0 % Normal 0.0-1.0 [facility] Comment on above: Performed By: #### L [id number] #### [facility] ([facility]ER) [address] [place] [address] Lymphocytes (Bld) [#/Vol] 1.78 10*3/uL Normal 1.20-4.00 [facility] Comment on above: Performed By: #### L [id number] #### [facility] ([facility]) [address] [place] [address] Lymphocytes/100 WBC (Bld) 23.0 % Normal 20.0-45.0 [facility] Comment on above: Performed By: #### L [id number] #### [facility] ([facility]) [address] [place] [address] MCH (RBC) [Entitic mass] 30.6 pg Normal 27.0-33.0 [facility] Comment on above: Performed By: #### L [id number] #### [facility] ([facility]) [address] [place] [address] MCV (RBC) [Entitic vol] 87.5 fL Normal 82.0-98.0 [facility] Comment on above: Performed By: #### L [id number] #### [facility] ([facility]) [address] [place] [address] Monocytes (Bld) [#/Vol] 0.89 10*3/uL Normal 0.10-1.00 [facility] Comment on above: Performed By: #### L [id number] #### [facility] ([facility]) [address], [place] [address] Monocytes/100 WBC (Bld) 11.5 % Normal 5.0-12.0 [facility] Comment on above: Performed By: #### L [id number] #### [facility] ([facility]) [address], [place] [address] Neutrophils (Bld) [#/Vol] 4.85 10*3/uL Normal 1.60-7.60 [facility] Comment on above: Performed By: #### L [id number] #### [facility] ([facility]AKER) [address], [place] [address] Neutrophils/100 WBC (Bld) 62.6 % Normal 40.0-72.0 [facility] Comment on above: Performed By: #### L [id number] #### [facility] ([facility]ER) [address] [place] [address] NRBC (PER 100 WBCS) BY AUTOMATED COUNT 0.0 % Normal 0 [facility] Comment on above: Performed By: #### L [id number] #### [facility] ([facility]) [address] [place] [address] PLATELETS (10*3/UL) IN BLOOD AUTOMATED COUNT 200 10*3/uL Normal 150-400 [facility] Comment on above: Performed By: #### L [id number] #### [facility] ([facility]) [address] [address] RBC (Bld) [#/Vol] 4.48 10*6/uL Normal 4.20-5.70 [facility] Comment on above: Performed By: #### L [id number] #### [facility] ([facility]) [address], [place] [address] WBC (Bld) [#/Vol] 7.74 10*3/uL Normal 4.00-10.60 [facility] Comment on above: Performed By: #### L [id number] #### [facility] ([facility]) [address] [place] [address] DSon 03-20-2023 DS Admission Admitted 03/19/2023 for extensive RLE DVT Discharge Diagnosis DVT, lower extremity, proximal, acute, right ([facility] Discharge Disposition Home or Self Care Discharge [...] Medications These medications were sent to [facility] - [place], [place] - [address], [facility] [address] apixaban 5 mg tablet apixaban 5 mg tablet Activity Patient currently has no discharge activity orders Diet Patient currently has no discharge diet orders Allergies Clindamycin and Shellfish derived Hospital Course Arvind Rm is a 68 y.o. male presenting to [facility] as a direct admit from [facility] on 03/19 for extensive right lower [...] 05/22/2023 10:15 AM Liss Ji NP HVCVASENDO [place] HeartVAS Normal [facility] HEPARIN LEVELon 03-20-2023 HEPARIN UNFRACTIONATED (U/ML) IN PPP BY CHROMOGENIC METHOD 0.31 IU/mL Normal 0.3-0.7 [facility] Comment on above: Result Comment: [place] roxaban and Apixaban will interfere with the anti Xa assay used to monitor UFH and LMWH. Performed By: #### L [id number] #### [facility] ([facility]AKER) [address] [place] [address] HEPARIN UNFRACTIONATED (U/ML) IN PPP BY CHROMOGENIC METHOD 0.23 IU/mL Low 0.3-0.7 [facility] Comment on above: Result Comment: [place] roxaban and Apixaban will interfere with the anti Xa assay used to monitor UFH and LMWH. Performed By: #### L [id number] #### [facility] (BEAKER) [address] [place] [address] HEPARIN UNFRACTIONATED (U/ML) IN PPP BY CHROMOGENIC METHOD 0.34 IU/mL Normal 0.3-0.7 [facility] Comment on above: Result Comment: [place] roxaban and Apixaban will interfere with the anti Xa assay used to monitor UFH and LMWH. Performed By: #### L [id number] #### [facility] ([facility]) [address] [place] [address] HEPARIN UNFRACTIONATED (U/ML) IN PPP BY CHROMOGENIC METHOD 0.51 IU/mL Normal 0.3-0.7 [facility] Comment on above: Order Comment: Check anti-Xa level every 6 hours while on heparin infusion, or per protocol. Result Comment: [place] roxaban and Apixaban will interfere with the anti Xa assay used to monitor UFH and LMWH. Performed By: #### L [id number] #### [facility] ([facility]) [address] [place] [address] MAGNESIUMon 03-20-2023 Magnesium [Mass/Vol] 2.0 mg/dL Normal 1.9-2.7 [facility] Comment on above: Performed By: #### L [id number] #### [facility] ([facility]) [address] [facility] [place] [address] PHOSPHORUSon 03-20-2023 Magnesium [Mass/Vol] 3.5 mg/dL Normal 2.5-5.0 [facility] Comment on above: Performed By: #### L [id number] #### [facility] ([facility]) [address] [place] [address] PROTIME-INRon 03-20-2023 INR IN PPP BY COAGULATION ASSAY 1.15 High 0.90-1.10 [facility] Comment on above: Result Comment: ACCC [...] 1995;108:231S-246S. Performed By: #### L [id number] #### [facility] ([facility]) [address] [place] [address] PROTHROMBIN TIME (PT) IN PPP BY COAGULATION ASSAY 14.7 Seconds Normal 12.3-14.8 [facility] Comment on above: Performed By: #### L [id number] #### [facility] ([facility]) [address] [place] [address] BASIC METABOLIC PANELon 08-2 Anion gap [Moles/Vol] 13 mmol/L Normal 7-20 [facility] Comment on above: Performed By: #### L [id number] #### [facility] ([facility]) [address] [place] [address] Calcium [Mass/Vol] 9.1 mg/dL Normal 8.6-10.3 [facility] Comment on above: Performed By: #### L [id number] #### [facility] ([facility]) [address] [place] [address] Chloride [Moles/Vol] 101 mmol/L Normal 98-107 [facility] Comment on above: Performed By: #### L [id number] #### [facility] ([facility]) [address] [facility] [place] [address] CO2 [Moles/Vol] 28 mmol/L Normal 21-31 [facility] Comment on above: Performed By: #### L [id number] #### [facility] ([facility]) [address] [place] [address] Creatinine [Mass/Vol] 0.97 mg/dL Normal 0.70-1.30 [facility] Comment on above: Performed By: #### L [id number] #### [facility] ([facility]) [address] [place] [address] GLOMERULAR FILTRATION RATE ML/MIN/1.73 SQ M.PREDICTED 85.0 mL/min/1.73m*2 Normal >60.0 [facility] Comment on above: Result Comment: [facility]???s estimated glomerular filtration rate (eGFR) will [...] group of individuals. Performed By: #### L [id number] #### [facility] ([facility]) [address] [place] [address] Glucose [Mass/Vol] 159 mg/dL High 70-100 [facility] Comment on above: Performed By: #### L [id number] #### [facility] ([facility]) [address] [place] [address] Potassium [Moles/Vol] 3.5 mmol/L Normal 3.5-5.1 [facility] Comment on above: Performed By: #### L [id number] #### [facility] ([facility]) [address] [place] [address] Sodium [Moles/Vol] 138 mmol/L Normal 136-145 [facility] Comment on above: Performed By: #### L [id number] #### [facility] ([facility]) [address] [place] [address] Urea nitrogen [Mass/Vol] 22 mg/dL Normal 7-25 [facility] Comment on above: Performed By: #### L [id number] #### [facility] ([facility]) [address] [place] [address] UREA NITROGEN/CREATININE (MASS RATIO) IN SER/PLAS 22.7 Normal [facility] Comment on above: Performed By: #### L [id number] #### [facility] ([facility]) [address] [place] [address] CBC WITH AUTO DIFFERENTIALon 03-19-2023 Basophils (Bld) [#/Vol] 0.04 10*3/uL Normal 0.00-0.20 [facility] Comment on above: Performed By: #### L [id number] #### [facility] ([facility]) [address] [place] [address] Basophils/100 WBC (Bld) 0.5 % Normal 0.0-1.0 [facility] Comment on above: Performed By: #### L [id number] #### [facility] ([facility]) [address] [place] [address] Eosinophils (Bld) [#/Vol] 0.15 10*3/uL Normal 0.00-0.50 [facility] Comment on above: Performed By: #### L [id number] #### [facility] ([facility]) [address] [place] [address] Eosinophils/100 WBC (Bld) 1.7 % Normal 0.0-6.0 [facility] Comment on above: Performed By: #### L [id number] #### [facility] ([facility]) [address] [place] [address] Erythrocyte distribution width (RBC) [Ratio] 12.3 % Normal 11.5-15.0 [facility] Comment on above: Performed By: #### L [id number] #### [facility] ([facility]) [address] [place] [address] ERYTHROCYTE MEAN CORPUSCULAR HEMOGLOBIN CONCENTRATION (G/DL) BY AUTOMATED 34.3 g/dL Normal 32.0-35.0 [facility] Comment on above: Performed By: #### L [id number] #### [facility] (BEAKER) [address] [place] [address] Hematocrit (Bld) [Volume fraction] 42.8 % Normal 39.0-55.0 [facility] Comment on above: Performed By: #### L [id number] #### [facility] (BEAKER) [address] [place] [address] Hemoglobin (Bld) [Mass/Vol] 14.7 g/dL Normal 13.0-17.0 [facility] Comment on above: Performed By: #### L [id number] #### [facility] [address] [place] [address] Immature granulocytes (Bld) [#/Vol] 0.09 10*3/uL Normal 0.00-0.20 [facility] Comment on above: Performed By: #### L [id number] #### [facility] ([facility]) [address] [place] [address] Immature granulocytes/100 WBC (Bld) 1.0 % Normal 0.0-1.0 [facility] Comment on above: Performed By: #### L [id number] #### [facility] (BEAKER) [address] [place] [address] Lymphocytes (Bld) [#/Vol] 2.02 10*3/uL Normal 1.20-4.00 [facility] Comment on above: Performed By: #### L [id number] #### [facility] [address] [place] [address] Lymphocytes/100 WBC (Bld) 23.3 % Normal 20.0-45.0 [facility] Comment on above: Performed By: #### L [id number] #### [facility] ([facility] [address] [place] [address] MCH (RBC) [Entitic mass] 30.6 pg Normal 27.0-33.0 [facility] Comment on above: Performed By: #### L [id number] #### [facility] (BEAKER) [address] [place] [address] MCV (RBC) [Entitic vol] 89.2 fL Normal 82.0-98.0 [facility] Comment on above: Performed By: #### L [id number] #### [facility] [address] [place] [address] Monocytes (Bld) [#/Vol] 0.71 10*3/uL Normal 0.10-1.00 [facility] Comment on above: Performed By: #### L [id number] #### [facility] ([facility]) [address] [place] [address] Monocytes/100 WBC (Bld) 8.2 % Normal 5.0-12.0 [facility] Comment on above: Performed By: #### L [id number] #### [facility] ([facility]) [address] [place] [address] Neutrophils (Bld) [#/Vol] 5.67 10*3/uL Normal 1.60-7.60 [facility] Comment on above: Performed By: #### L [id number] #### [facility] ([facility]) [address] [place] [address] Neutrophils/100 WBC (Bld) 65.3 % Normal 40.0-72.0 [facility] Comment on above: Performed By: #### L [id number] #### [facility] ([facility]) [address] [place] [address] NRBC (PER 100 WBCS) BY AUTOMATED COUNT 0.0 % Normal 0 [facility] Comment on above: Performed By: #### L [id number] #### [facility] ([facility]) [address] [place] [address] PLATELETS (10*3/UL) IN BLOOD AUTOMATED COUNT 219 10*3/uL Normal 150-400 [facility] Comment on above: Performed By: #### L [id number] #### [facility] ([facility] [address] [place] [address] RBC (Bld) [#/Vol] 4.80 10*6/uL Normal 4.20-5.70 [facility] Comment on above: Performed By: #### L [id number] #### [facility] (BEAKER) [address] [place] [address] WBC (Bld) [#/Vol] 8.68 10*3/uL Normal 4.00-10.60 [facility] Comment on above: Performed By: #### L [id number] #### [facility] (BEAKER) [address] [place] [address] CTA AORTA AND BILATERAL ILIO FEMORAL RUNOFF [...] dilated bladder hydronephrosis Electronically signed: Luis Burroughs. [facility] Comment on above: Order Comment: CTA a bdomen and pelvis with venous phase to evaluate DVT [facility] 03-19-2023 -- Attestation signed by Harshal Arredondo MD at 03/20/2023 4:05 PM Patient seen [...] vein's. We will obtain CT scan with [place] to evaluate for iliac vein of thrombosis. If any involvement of the proximal segments, including the Common femoro, or iliacs Vein will consider thrombectomy otherwise will be treated with anticoagulation. [facility] HISTORY AND PHYSICAL History Of Present Illness Arvind Rm is a 68 y.o. male presenting to [facility] as a direct admit from [facility] for extensive right lower extremity DVT. [...] worsened last night/this morning prompting presentation to [place] [facility]. In ED patient had US of lower extremity finding occlusive thrombus within right posterior tibial vein, peroneal vein, popliteal vein, femoral vein and non-occlusive thrombus within the common femoral vein. Patient was started on heparin and decision was made to transfer to [facility]. Patient assessed on 6AB, endorses pain to right calf, and edema of right lower leg. Patient denies chest pain, shortness of breath, abdominal pain, nausea, vomiting, headache, or changes in vision. Past Medical History He has a past medical history of DVT of leg (deep venous thrombosis) ([facility]) (03/19/2023). Surgical History He has a past [...] lower le (more content not included)... Normal [facility] MAGNESIUMon 03-19-2023 Magnesium [Mass/Vol] 2.0 mg/dL Normal 1.9-2.7 [facility] Comment on above: Performed By: #### L [id number] #### [facility] (BEAKER) [address] [place] [address] PHOSPHORUSon 03-19-2023 Magnesium [Mass/Vol] 3.7 mg/dL Normal 2.5-5.0 [facility] Comment on above: Performed By: #### L [id number] #### [facility] (BEAKER) [address] [place] [address] PROTIME-INRon 03-19-2023 INR IN PPP BY COAGULATION ASSAY 1.19 High 0.90-1.10 [facility] Comment on above: Result Comment: ACCC [...] RANGE. CHEST 1995;108:231S-246S. Performed By: #### L [id number] #### [facility] (YENI) [address] [place] [address] PROTHROMBIN TIME (PT) IN PPP BY COAGULATION ASSAY 15.1 Seconds High 12.3-14.8 [facility] Comment on above: Performed By: #### L [id number] #### [facility] (YENI) [address] [place] [address] Consultation Noteon 01-30-20 Consultation Note [id number] 0CD:127 Normal [facility] US FNA W US GD ADD LESon US FNA W US GD ADD LES Begin Addendum #1 COLLECTED DATE/TIME: 11/11/2022 09:46 EDT Final Diagnosis Report for [facility] [place] (A/B) RIGHT THYROID INFERIOR NODULE: FINE [...] (FNA). 2. Pathology results are pending. Normal [facility] Pathology Noteon 11-10-2022 Pathology Note [id number] 0CD:127 Normal [facility] Outside Colonoscopyon 2022 Outside Colonoscopy [id number]#1.0 0CD:127 Normal [facility] US THYROIDon 10-30-2022 US THYROID EXAMINATION: [...] cm left nodules is recommended TI-RADS: [employer] TI-RADS committee's white paper recommendations for thyroid lesions classified as TR4 (moderately suspicious) are listed below: > 1.0 cm. Follow-up ultrasound in 1, 2, 3, and 5 years. > 1.5 cm. FNA. J. Am Nando Radiol 2017;14:587-595. TI-RADS: [employer] TI-RADS committee's white paper recommendations for thyroid lesions classified as TR5 (highly suspicious) are listed below: > 0.5 cm. Annual ultrasound follow-up for up to 5 years. > 1.0 cm. FNA. J. Am Nando Radiol 2017;14:587-595. Electronically authenticated by: DIANA HERNANDEZ Date: 2022-10-30 14:53 Normal [facility] Consent for Procedure/Surger yon 10-23-2022 Consent for Procedure/Surgery [id number] 0CD:127 Normal [facility] Facesheeton 10-23-2022 Facesheet [id number]#1.0 0CD:127 [facility] Pre-Certification Formon Pre-Certification Form [id number]. 00CD:127 [facility] Ambulatory Visit Summaryon 0 10-22-2022 Ambulatory Visit Summary ARVIND RM :1955 Visit Date:10/22/2022 Ambulatory Visit Instructions Your [...] hypertension Family history of colon cancer Hyperlipidemia [facility] Physician Referralon 023 Physician Referral [id number]#1.0 0CD:127 [facility] PSA, FREE AND TOTAL RATIOon 08-23-2022 % Free PSA 21.0 % [facility] Comment on above: Result Comment: The [...] men. Performed By: #### P SAFREE #### [facility] [address] [place] [address] Dr. Remigio Han Prostate specific Ag [Mass/Vol] 3.1 ng/mL Normal 0.0-4.0 [facility] Comment on above: Result Comment: Cydney VARELA methodology. . According to the [employer], Serum PSA should decrease and [...] disease. Performed By: #### P SAFREE #### [facility] [address] [place] [address] Dr. Remigio Han PSA, Free 0.65 ng/mL Normal N/A [facility] Comment on above: Result Comment: Cydney VARELA methodology. Performed By: #### P SAFREE #### [facility] [address] [place] [id number] [address] Remigio Han PSA, FREE AND TOTAL RATIOon 02-21-2022 % Free PSA 24.9 % Normal [facility] Comment on above: Result Comment: [...] men. Performed By: #### P SAFREE #### [facility] [address] [place] [address] Dr. Remigio Han Prostate specific Ag [Mass/Vol] 4.5 ng/mL Critically high 0.0-4.0 [facility] Comment on above: Result Comment: Cydney bergman ECLIA methodology. . According to the [employer], Serum PSA should decrease and [...] disease. Performed By: #### P SAFREE #### [facility] [address] [place] [address] Dr. Remigio Han PSA, Free 1.12 ng/mL Normal N/A [facility] Comment on above: Result Comment: Cydney bergman ECLIA methodology. Performed By: #### P SAFREE #### [facility] [address] [place] [address] Dr. Remigio Han INSULINon 02-20-2022 Insulin 14.7 uIU/mL Normal 2.6-24.9 [facility] Comment on above: Performed By: #### I NSULIN #### [facility] [address] [place] [address] Dr. Remigio Han CBC AUTO DIFFon 02-19-2022 BASO # 0.0 103/ul Normal 0.0-0.1 [facility] Comment on above: Performed By: #### C BC #### [facility] [address] [place] [address] Dr. Remigio Han Basophils/100 WBC (Bld) 0.5 % Normal 0.2-2.0 [facility] Comment on above: Performed By: #### C BC #### [facility] [address] [address] [address] Remigio Han EO # 0.1 103/ul Normal 0.0-0.7 [facility] Comment on above: Performed By: #### C BC #### [facility] [address] [place] [address] Dr. Remigio Han Eosinophils/100 WBC (Bld) 1.5 % Normal 0.9-7.0 [facility] Comment on above: Performed By: #### C BC #### [facility] [address] [place] [address] Dr. Remigio Han Erythrocyte distribution width (RBC) [Ratio] 13.0 % Normal 11.0-15.0 [facility] Comment on above: Performed By: #### C BC #### [facility] [address] [place] [address] Dr. Remigio Han Hematocrit (Bld) [Volume fraction] 48.4 % Normal 42.0-54.0 [facility] Comment on above: Performed By: #### C BC #### [facility] [address] [place] [address] Dr. Remigio Han Hemoglobin (Bld) [Mass/Vol] 16.6 g/dL Normal 14.0-18.0 [facility] Comment on above: Performed By: #### C BC #### [facility] [address] [place] [address] Dr. Remigio Han IG # 0.02 10e3/ul Normal 0.00-0.03 [facility] Comment on above: Performed By: #### C BC #### [facility] [address] [place] [address] Dr. Remigio Han IG % 0.4 % Normal 0.0-0.5 [facility] Comment on above: Performed By: #### C BC #### [facility] [address] [place] [address] Dr. Remigio Han LYMPH # 1.6 103/ul Normal 1.2-3.8 [facility] Comment on above: Performed By: #### C BC #### [facility] [address] [place] [address] Dr. Remigio Han Lymphocytes/100 WBC (Bld) 30.0 % Normal 20.5-60.0 [facility] Comment on above: Performed By: #### C BC #### [facility] [address] [place] [address] Dr. Remigio Han MANUAL DIFF REQ NO Normal [facility] Comment on above: Performed By: #### C BC #### [facility] [address] [place] [address] Dr. Remigio Han MCH (RBC) [Entitic mass] 30.2 pg Normal 25.9-34.0 [facility] Comment on above: Performed By: #### C BC #### [facility] [address] [place] [address] Dr. Remigio Han MCHC (RBC) [Mass/Vol] 34.3 g/dL Normal 29.9-35.2 [facility] Comment on above: Performed By: #### C BC #### [facility] [address] [place] [address] Dr. Remigio Han MCV (RBC) [Entitic vol] 88.2 fL Normal 80.0-94.0 [facility] Comment on above: Performed By: #### C BC #### [facility] [address] [place] [address] Dr. Remigio Han MONO # 0.4 103/ul Normal 0.3-0.8 [facility] Comment on above: Performed By: #### C BC #### [facility] [address] [place] [address] Dr. Remigio Han Monocytes/100 WBC (Bld) 8.1 % Normal 1.7-12.0 [facility] Comment on above: Performed By: #### C BC #### [facility] [address] [place] [address] Dr. Remigio Han NEUT # 3.3 103/ul Normal 1.4-6.5 [facility] Comment on above: Performed By: #### C BC #### [facility] [address] [place] [address] Dr. Remigio Han Neutrophils/100 WBC (Bld) 59.5 % Normal 43.0-75.0 [facility] Comment on above: Performed By: #### C BC #### [facility] [address] [place] [address] Dr. Remigio Han Platelet mean volume (Bld) [Entitic vol] 9.8 fL Normal 9.5-13.5 [facility] Comment on above: Performed By: #### C BC #### [facility] [address] [place] [address] Dr. Remigio Han PLT 217 103/ul Normal 150-450 [facility] Comment on above: Performed By: #### C BC #### [facility] [address] [place] [address] Dr. Remigio Han RBC 5.49 106/ul Normal 4.70-6.10 [facility] Comment on above: Performed By: #### C BC #### [facility] [address] [place] [address] Dr. Remigio Han WBC 5.5 103/ul Normal 4.0-11.0 [facility] Comment on above: Performed By: #### C BC #### [facility] [address] [place] [address] Dr. Remigio Han GLYCOHEMOGLOBIN A1Con 2021 ADA RECOMMENDATION SEE BELOW Normal [facility] Comment on above: Result Comment: ADA RECOMMENDED LIMIT 4.0 - 6.0 ADA THERAPEUTIC TARGET < 7.0 ACTION SUGGESTED > 7.0 Performed By: #### A 1C #### [facility] [address] [place] [address] Dr. Remigio Han Glucose [Mass/Vol] 103 mg/dL Normal [facility] Comment on above: Performed By: #### A 1C #### [facility] [address] [place] [address] Dr. Remigio Han HbA1c (Bld) [Mass fraction] 5.2 % Normal 4.5-6.2 [facility] Comment on above: Performed By: #### A 1C #### [facility] [address] [place], [place] [address] Dr. Remigio Han LIPID PROFILEon 02-19-2022 CHOL-HDL RATIO NORM SEE BELOW Normal [facility] Comment on above: Result Comment: 3.3 - 4.4 LOW RISK 4.4 - 7.1 AVERAGE RISK 7.1 - 11.0 MODERATE RISK >11.0 HIGH RISK Performed By: #### L IPID, CMP ####[facility] [address] [id number]. Remigio Han Cholesterol [Mass/Vol] 259 mg/dL Critically high <=200 [facility] Comment on above: Performed By: #### L IPID, CMP ####[facility] [address] [address]Dr. Remigio Han Cholesterol in HDL [Mass/Vol] 62 mg/dL Critically high 40-60 [facility] Comment on above: Performed By: #### L IPID, CMP ####[facility] [address] [address]Dr. Remigio Han Cholesterol in LDL [Mass/Vol] 171.8 mg/dL Normal [facility] Comment on above: Performed By: #### L IPID, CMP ####[facility] [address] [id number]. Remigio Han Cholesterol.total/Ch olesterol in HDL [Mass ratio] 4.2 {ratio} Normal [facility] Comment on above: Performed By: #### L IPID, CMP ####[facility] [address] [id number]. Remigio Han HDL NORMAL > or = 60 mg/dl - LO W CARDIOVASCULAR RISK <40 mg/dl - HIGH CARDIOVASCULAR RISK Normal [facility] Comment on above: Performed By: #### L IPID, CMP ####[facility] [address] [id number]. Remigio Han LDL CALC NORMAL SEE BELOW Normal [facility] Comment on above: Result Comment: <100 mg/dl OPTIMAL 100 - 129 mg/dl NEAR OR ABOVE OPTIMAL 130 - 159 mg/dl BORDERLINE HIGH 160 - 189 mg/dl HIGH >190 mg/dl VERY HIGH Performed By: #### L IPID, CMP ####[facility] [address] [address]Dr. Remigio Han Triglyceride [Mass/Vol] 126 mg/dL Normal <=150 [facility] Comment on above: Performed By: #### L IPID, CMP ####[facility] [address] [address]Dr. Remigio Han VLDL CALC 25.2 mg/dL Normal [facility] Comment on above: Performed By: #### L IPID, CMP ####[facility] [address] [address]Dr. Remigio Han PROF 14(COMP METB)on 022 Albumin [Mass/Vol] 3.9 g/dL Normal 3.4-5.0 [facility] Comment on above: Performed By: #### L IPID, CMP #### [facility] [address] [address] [address] Remigio Han Albumin/Globulin [Mass ratio] 1.1 {ratio} Normal [facility] Comment on above: Performed By: #### L IPID, CMP #### [facility] [address] [address] [address] Remigio Han ALP [Catalytic activity/Vol] 65 U/L Normal 46-116 [facility] Comment on above: Performed By: #### L IPID, CMP #### [facility] [address] [address] [address] Remigio Han ALT [Catalytic activity/Vol] 25 U/L Normal 16-63 [facility] Comment on above: Performed By: #### L IPID, CMP #### [facility] [address] [address] [address] Remigio Han Anion gap [Moles/Vol] 13.1 mmol/L Normal [facility] Comment on above: Performed By: #### L IPID, CMP #### [facility] [address] [address] [address] Remigio Han AST [Catalytic activity/Vol] 15 U/L Normal 15-37 [facility] Comment on above: Performed By: #### L IPID, CMP #### [facility] [address] [place] [address] Dr. Remigio Han Bilirubin [Mass/Vol] 0.5 mg/dL Normal 0.2-1.0 [facility] Comment on above: Performed By: #### L IPID, CMP #### [facility] [address] [place] [address] Dr. Remigio Han Calcium [Mass/Vol] 9.5 mg/dL Normal 8.5-10.1 [facility] Comment on above: Performed By: #### L IPID, CMP #### [facility] [address] [place] [address] Dr. Remigio Han Chloride [Moles/Vol] 104 mmol/L Normal 98-107 [facility] Comment on above: Performed By: #### L IPID, CMP #### [facility] [address] [place] [address] Dr. Remigio Han CO2 [Moles/Vol] 28.3 mmol/L Normal 21.0-32.0 [facility] Comment on above: Performed By: #### L IPID, CMP #### [facility] [address] [place] [address] Dr. Remigio Han Creatinine [Mass/Vol] 1.05 mg/dL Normal 0.70-1.30 [facility] Comment on above: Performed By: #### L IPID, CMP #### [facility] [address] [place] [address] Dr. Remigio Han EGFR-AF [place] >60 Normal >=60 [facility] Comment on above: Performed By: #### L IPID, CMP #### [facility] [address] [place] [address] Dr. Remigio Han EGFR-NON AF [place] >60 Normal >=60 [facility] Comment on above: Performed By: #### L IPID, CMP #### [facility] [address] [place] [address] Dr. Remigio Han Globulin (S) [Mass/Vol] 3.4 g/dL Normal [facility] Comment on above: Performed By: #### L IPID, CMP #### [facility] [address] [place] [address] Dr. Remigio Han Glucose [Mass/Vol] 93 mg/dL Normal 74-106 [facility] Comment on above: Performed By: #### L IPID, CMP #### [facility] [address] [place] [address] Dr. Remigio Han Potassium [Moles/Vol] 4.4 mmol/L Normal 3.5-5.1 [facility] Comment on above: Performed By: #### L IPID, CMP #### [facility] [address] [place] [address] Dr. Remigio Han Protein [Mass/Vol] 7.3 g/dL Normal 6.4-8.2 [facility] Comment on above: Performed By: #### L IPID, CMP #### [facility] [address] [place] [address] Dr. Remigio Han Sodium [Moles/Vol] 141 mmol/L Normal 136-145 [facility] Comment on above: Performed By: #### L IPID, CMP #### [facility] [address] [place] [address] Dr. Remigio Han Urea nitrogen [Mass/Vol] 25.0 mg/dL Critically high 7.0-18.0 [facility] Comment on above: Performed By: #### L IPID, CMP #### [facility] [address] [place] [address] Dr. Remigio Han Urea nitrogen/Creatinine [Mass ratio] 23.8 mg/mg Normal [facility] Comment on above: Performed By: #### L IPID, CMP #### [facility] [address] [place] [address] Dr. Remigio Han Vital Signs Date Time Vital Sign Value Performing Clinician Facility 08-27-2023 09:37-0500 Body temperature 97.5 [degF] HARMONY Guillermo MD Work Phone: [facility] 08-27-2023 09:37-0500 Body weight 86.4 kg HARMONY Guillermo MD Work Phone: [facility] 08-27-2023 09:37-0500 Diastolic blood pressure 80 mm[Hg] HARMONY Guillermo MD Work Phone: [facility] 08-27-2023 09:37-0500 Heart rate 70 /min HARMONY Guillermo MD Work Phone: [facility] 08-27-2023 09:37-0500 Respiratory rate 16 /min HARMONY Guillermo MD Work Phone: [facility] 08-27-2023 09:37-0500 SaO2% (BldA) [Mass fraction] 98 % HARMONY Guillermo MD Work Phone: [facility] 08-27-2023 09:37-0500 Systolic blood pressure 139 mm[Hg] HARMONY Guillermo MD Work Phone: [facility] 06-17-2023 10:19-0500 Body temperature 96.69 [degF] HARMONY Guillermo MD Work Phone: [facility] 06-17-2023 10:19-0500 Body weight 82.1 kg HARMONY Guillermo MD Work Phone: [facility] 06-17-2023 10:19-0500 Diastolic blood pressure 86 mm[Hg] HARMONY Guillermo MD Work Phone: [facility] 06-17-2023 10:19-0500 Heart rate 70 /min HARMONY Guillermo MD Work Phone: [facility] 06-17-2023 10:19-0500 Respiratory rate 18 /min HARMONY Guillermo MD Work Phone: [facility] 06-17-2023 10:19-0500 SaO2% (BldA) [Mass fraction] 98 % HARMONY Guillermo MD Work Phone: [facility] 06-17-2023 10:19-0500 Systolic blood pressure 143 mm[Hg] HARMONY Guillermo MD Work Phone: [facility] 06-02-2023 08:43-0500 Body temperature 97.39 [degF] [facility] Work Phone: [facility] 06-02-2023 08:43-0500 Diastolic blood pressure 84 mm[Hg] [facility] [place] Work Phone: [facility] 06-02-2023 08:43-0500 Heart rate 78 /min [facility] Work Phone: [facility] 06-02-2023 08:43-0500 Respiratory rate 16 /min [facility] [place] Work Phone: [facility] 06-02-2023 08:43-0500 SaO2% (BldA) [Mass fraction] 99 % [facility] Work Phone: [facility] 06-02-2023 08:43-0500 Systolic blood pressure 132 mm[Hg] [facility] Work Phone: [facility] 06-01-2023 08:41-0500 Body temperature 97 [degF] [facility] [place] Work Phone: [facility] 06-01-2023 08:41-0500 Body weight 80.29 kg [facility] [place] Work Phone: [facility] 06-01-2023 08:41-0500 Diastolic blood pressure 86 mm[Hg] [facility] Work Phone: [facility] 06-01-2023 08:41-0500 Heart rate 68 /min [facility] [place] Work Phone: [facility] 06-01-2023 08:41-0500 Respiratory rate 16 /min [facility] [place] Work Phone: [facility] 06-01-2023 08:41-0500 SaO2% (BldA) [Mass fraction] 99 % [facility] Work Phone: [facility] 06-01-2023 08:41-0500 Systolic blood pressure 133 mm[Hg] [facility] Work Phone: [facility] 04-28-2023 09:47-0400 Diastolic blood pressure 74 mm[Hg] MD Gael Thomas Work Phone: [facility] 04-28-2023 09:47-0400 Heart rate 78 /min MD Gael Thomas Work Phone: [facility] 04-28-2023 09:47-0400 Respiratory rate 20 /min MD Gael Thomas Work Phone: [facility] 04-28-2023 09:47-0400 SaO2% (BldA) [Mass fraction] 97 % MD Gael Thomas Work Phone: [facility] 04-28-2023 09:47-0400 Systolic blood pressure 126 mm[Hg] MD Gael Thomas Work Phone: [facility] 04-28-2023 09:32-0400 Inhaled oxygen flow rate 2 L/min MD Gael Thomas Work Phone: [facility] 04-28-2023 07:07-0400 Body height 166.37 cm MD Gael Thomas Work Phone: [facility] 04-28-2023 07:07-0400 Body weight 80.73 kg MD Gael Thomas Work Phone: [facility] 04-01-2023 12:33-0400 Body height 166.4 cm HARMONY Guillermo MD Work Phone: [facility] 04-01-2023 12:33-0400 Body temperature 98.01 [degF] HARMONY Guillermo MD Work Phone: [facility] 04-01-2023 12:33-0400 Body weight 78.93 kg HARMONY Guillermo MD Work Phone: [facility] 04-01-2023 12:33-0400 Diastolic blood pressure 78 mm[Hg] HARMONY Guillermo MD Work Phone: [facility] 04-01-2023 12:33-0400 Heart rate 86 /min HARMONY Guillermo MD Work Phone: [facility] 04-01-2023 12:33-0400 Respiratory rate 16 /min HARMONY Guillermo MD Work Phone: [facility] 04-01-2023 12:33-0400 SaO2% (BldA) [Mass fraction] 97 % HARMONY Guillermo MD Work Phone: [facility] 04-01-2023 12:33-0400 Systolic blood pressure 115 mm[Hg] HARMONY Guillermo MD Work Phone: [facility] 10-22-2022 15:26-0400 Blood Pressure Location Violeta TINOCO [facility] 10-22-2022 15:26-0400 Diastolic blood pressure 80 mm[Hg] Violeta TINOCO [facility] 10-22-2022 15:26-0400 Heart rate 74 /min Violeta SEVENL [facility] 10-22-2022 15:26-0400 Respiratory rate 16 /min Violeta TINOCO [facility] 10-22-2022 15:26-0400 Systolic blood pressure 122 mm[Hg] Violeta AMEZCUAL [facility] [place] Encounters Encounter Date Encounter Type Care Provider Facility Start: 11-18-2023 End: 11-18-2023 ambulatory JOEY MEADOWS Not Available Start: 10-05-2023 Refill Azam calderon MD Work Phone: [facility] Comment on above: Refill Request Start: 09-04-2023 ambulatory BRIAN [facility] Start: 08-27-2023 Refill Azam calderon MD Work Phone: [facility] Comment on above: Med Change Request Start: 08-27-2023 End: 08-27-2023 ambulatory GAEL THOMAS Facility:[facility] Start: 08-27-2023 End: 08-27-2023 Patient encounter procedure Azam Guillermo MD Work Phone: [facility] Comment on above: Thyroid cancer (HCC) (Primary Dx) Start: 08-26-2023 End: 08-27-2023 ambulatory [facility] Start: 08-19-2023 End: 08-19-2023 ambulatory JOEY H TIMMIS Not Available Start: 08-18-2023 End: 08-18-2023 ambulatory GAEL THOMAS Facility:[facility] Start: 07-15-2023 End: 07-15-2023 ambulatory JOEY H TIMMIS Not Available Start: 07-01-2023 End: 07-01-2023 ambulatory JOEY H TIMMIS Not Available Start: 06-17-2023 End: 06-17-2023 ambulatory GAEL CASTROCharlette Facility:[facility] Start: 06-17-2023 End: 06-17-2023 Patient encounter procedure Azam Guillermo MD Work Phone: [facility] Comment on above: Thyroid cancer (HCC) (Primary Dx) Start: 06-03-2023 End: 06-03-2023 ambulatory GAEL CASTROCharlette Facility:[facility] Start: 06-03-2023 End: 06-03-2023 ambulatory Temo Guillermo Facility:[facility] Start: 06-03-2023 End: 06-03-2023 Patient encounter procedure Azam Guillermo MD Work Phone: [facility] Comment on above: Thyroid cancer (HCC) (Primary Dx) Start: 06-03-2023 End: 06-03-2023 ambulatory MD Gael Thomas Work Phone: [facility] Work Phone: Start: 06-03-2023 End: 06-03-2023 Patient encounter procedure MD Gael Thomas Work Phone: [facility]Nuc [facility] Work Phone: Start: 06-02-2023 End: 06-02-2023 ambulatory GAEL THOMAS Facility:[facility] Start: 06-02-2023 End: 06-02-2023 Patient encounter procedure [facility] Work Phone: [facility] Comment on above: Thyroid cancer (HCC) (Primary Dx) Start: 06-01-2023 End: 06-01-2023 ambulatory GAEL Samir JOSIANE Facility:[facility] Start: 06-01-2023 End: 06-01-2023 Patient encounter procedure [facility] [place] Work Phone: [facility] Comment on above: Thyroid cancer (HCC) (Primary Dx) Start: 05-22-2023 ambulatory [facility] Start: 05-08-2023 Refill G Oracio calderon MD Work Phone: [facility] Comment on above: Refill Request Start: 04-28-2023 End: 04-28-2023 ambulatory Imad Asaad Facility:[facility] Start: 04-28-2023 End: 04-28-2023 Admission to same day surgery center MD Gael Thomas Work Phone: [facility] Work Phone: Start: 04-28-2023 End: 04-28-2023 ambulatory MD Gael Thomas Work Phone: [facility] Work Phone: Start: 04-21-2023 End: 04-21-2023 ambulatory Imad Asaad Other [facility] Other Start: 04-21-2023 Telephone encounter Imad Asaad [facility] Start: 04-09-2023 Patient encounter procedure [facility] Provider [facility] Department Start: 04-02-2023 Orders Only G Oracio calderon MD Work Phone: [facility] Start: 04-01-2023 End: 04-01-2023 ambulatory GAEL THOMAS Facility:[facility] Start: 04-01-2023 End: 04-01-2023 Patient encounter procedure [facility]z Connelly Work Phone: [facility] Comment on above: Thyroid cancer (HCC) (Primary Dx) Start: 03-20[facility]2023 [facility]: 03-19-2023 Evaluation and management of inpatient HARSHAL ARREDONDO [facility] Start: 03-19-2023 Evaluation and management of inpatient GLEN DUPONT [facility] Start: 03-19-2023 End: 03-20-2023 Evaluation and management of inpatient KOJO FREITAS [facility] Start: 11-18-2022 ambulatory Violeta TINOCO Facility : [facility] Start: 11-11-2022 End: 11-11-[address] GAEL THOMAS . Facility:[facility] Start: 11-05-2022 End: 11-06-[address] VIOLETA TINOCO . Facility:[facility] Start: 10-30-2022 End: 10-31-[address] GAEL THOMAS . Facility:[facility] Start: 10-22-2022 End: 10-23-2022 ambulatory Violeta TINOCO Facility: [facility] Start: 10-22-2022 End: 10-22-2022 Patient encounter procedure Violeta TINOCO [facility] Start: 09-17-2022 ambulatory Violeta TINOCO Facility : [facility] Start: 08-22-2022 End: 08-23-[address] GAEL THOMAS . Facility:[facility] Start: 02-19-2022 End: 02-20-[address] GAEL THOMAS . Facility: Procedures Date Procedure Procedure Detail Performing Clinician Start: 04-28-2023 Colonoscopy MD Gael Thomas Work Phone: Start: 04-01-2023 Assay of thyroglobulin G Oracio Guillermo MD Work Phone: Start: 02-19-[address] TOBIN THOMAS . Comment on above: Performed By: #### [facility] ####[facility] [place], [place] [address] Remigio [address] Mcdaniel SEVENCade Plan of Treatment Date Care Activity Detail Author Start: 02-19-2027 Prostate Cancer Screening Discussion Prostate Cancer Screening Discussion [facility] Start: 02-19-2027 Prostate specific antigen measurement Prostate Cancer Screening Discussion [facility] Start: 03-20-2026 Diabetes Screening Diabetes Screenin g [facility] Start: 12-26-2023 End: 03-26-2024 THYROGLOBULIN BY LC-MS/MS, SERUM OR PLASMA, FOR THYROGLOBULIN ANTIBODY INTERFERENCE THYROGLOBULIN BY LC-MS/MS, SERUM OR PLASMA, FOR THYROGLOBULIN ANTIBODY INTERFERENCE Lab Routine Thyroid cancer (HCC) Expected: 12/26/2023, Expires: 03/26/2024 [facility] Work Phone: Comment on above: Expected: 12/26/2023 , Expires: 03/26/2024 Start: 12-26-2023 End: 03-26-2024 Thyrotropin [Units/volume] in Serum or Plasma TSH BLD Lab Routine Thyroid cancer (HCC) Expected: 12/26/2023, Expires: 03/26/2024 [facility] Work Phone: Comment on above: Expected: 12/26/2023 , Expires: 03/26/2024 Start: 12-26-2023 End: 03-26-2024 Thyroxine (T4) [Mass/volume] in Serum or Plasma T4/THYROXINE BLOOD Lab Routine Thyroid cancer (HCC) Expected: 12/26/2023, Expires: 03/26/2024 [facility] Work Phone: Comment on above: Expected: 12/26/2023 , Expires: 03/26/2024 Start: 08-27-2023 End: 11-26-2023 Thyrotropin [Units/volume] in Serum or Plasma TSH BLD Lab Routine Thyroid cancer (HCC) Expected: 08/27/2023 (Approximate), Expires: 11/26/2023 [facility] Work Phone: Comment on above: Expected: 08/27/2023 (Approximate), Expires: 11/26/2023 Start: 08-27-2023 End: 11-26-2023 Thyroxine (T4) [Mass/volume] in Serum or Plasma T4/THYROXINE BLOOD Lab Routine Thyroid cancer (HCC) Expected: 08/27/2023 (Approximate), Expires: 11/26/2023 [facility] Work Phone: Comment on above: Expected: 08/27/2023 (Approximate), Expires: 11/26/2023 Start: 07-27-2023 Advance Directive Discussion Advance Directive Discussion [facility] Start: 07-27-2023 Depression Assessment Depression Ass essment [facility] Start: 06-10-2023 Radionuclide localization of tumor, whole body NM thyroid ca whole body [facility] Start: 06-03-2023 Oral radionuclide therapy NM tx radpharm oral [facility] Start: 04-28-2023 [facility] Start: 04-01-2023 End: 06-01-2023 THYROGLOBULIN BY MASS SPECTROMETRY THYROGLOBULIN BY MASS SPECTROMETRY Lab Routine Thyroid cancer (HCC) Expected: 04/01/2023, Expires: 06/01/2023 [facility] Work Phone: Comment on above: Expected: 04/01/2023 , Expires: 06/01/2023 Start: 03-27-2023 Covid-19 Vaccine ( season) Covid-19 Vaccine ( season) [facility] Start: 03-27-2023 Influenza vaccination C [facility] Start: 07-27-2022 ADVANCE DIRECTIVE DISCUSSION ADVANCE DIRECTIVE DISCUSSION [facility] Start: 07-27-2022 DEPRESSION ASSESSMENT DEPRESSION ASS ESSMENT [facility] Start: 05-19-2022 COVID-19 VACCINE (5 - Pfizer series) COVID-19 VACCINE (5 - Pfizer series) [facility] Start: 2020 Pneumococcal Vaccine : 65+ (1 - PCV) Pneumococcal Vaccine: 65+ (1 - PCV) [facility] Start: 2020 Pneumococcal Vaccine : 65+ (1 of 1 - PCV) Pneumococcal Vaccine: 65+ (1 of 1 - PCV) [facility] Start: 2020 PNEUMOCOCCAL: 65+ (1 - PCV) PNEUMOCOCCAL: 65+ (1 - PCV) [facility] Start: 2015 RSV Vaccine (1 - 1-d ose 60+ series) RSV Vaccine (1 - 1-dose 60+ series) [facility] Start: 2010 PROSTATE CANCER SCREENING DISCUSSION PROSTATE CANCER SCREENING DISCUSSION [facility] Start: 2005 SHINGRIX VACCINE (1 of 2) SHINGRIX VACCINE (1 of 2) [facility] Start: 2000 COLOGUARD (FIT-DNA) COLOGUARD (FIT-D NA) [facility] Start: 2000 Colonoscopy COLONOSCOPY [facility] Start: 2000 COLORECTAL CANCER SCREENING COLORECTAL CANCER SCREENING [facility] Start: [address] COLONOGRAPHY [facility] Start: 2000 DIABETES SCREEN DIABETES SCREEN [facility] Start: 2000 Diabetes Screening Diabetes Screenin g [facility] Start: 2000 FECAL OCCULT BLOOD FECAL OCCULT BLOO D [facility] Start: 2000 Screening for malign ant neoplasm of colon [facility] Start: 2000 SIGMOIDOSCOPY SIGMOIDOSCOPY [facility] Start: 1990 Lipid 1996 panel - S john or Plasma Lipid Screening [facility] Start: 1990 Lipid panel Lipid Screening [facility] Start: 1990 LIPID SCREEN LIPID SCREEN [facility] Start: 1974 Urine microalbumin profile [facility] Start: 1973 HEPATITIS C SCREENING HEPATITIS C [facility] Start: 1973 Hepatitis C screening Hepatitis C [facility] Start: 1955 ABDOMINAL AORTIC ANEURYSM SCREENING ABDOMINAL AORTIC ANEURYSM SCREENING [facility] Start: 1955 Abdominal aortic aneurysm screening Abdominal Aortic Aneurysm Screening [facility] Patient Education Colon polyps Diverticulosis Hemorrhoids (DC) [facility] Work Phone: End: 04-30-2024 Rp therapy oral administration NM THERAPY THYROID I-131 Radiology Routine Thyroid cancer (HCC) 1 Occurrences starting 04/01/2023 until 04/30/2024 [facility] Work Phone: Comment on above: 1 Occurrences starti ng 04/01/2023 until 04/30/2024 [facility] Immunizations Immunization Date Immunization Notes Care Provider Fa cility 03-24-2022 SARS-CoV-2 mRNA (eajeuxrafwo-puab-jgjl ose) vaccine Violeta NILL [facility] 10-16-2021 SARS-CoV-2 mRNA (tugbftecwxr-xzln-ueon ose) vaccine Violeta NILL [facility] 04-17-2021 SARS-CoV-2 (COVID-19 ) mRNA BNT-162b2 vax Violeta NILL [facility] 03-27-2021 SARS-CoV-2 (COVID-19 ) mRNA BNT-162b2 vax Violeta NILL [facility] NEGATED: Highlighted row has not occurred!10-22-2022 influenza virus vaccine, unspecified formulation Violeta AMEZCUAL [facility] Payers Date Payer Category Payer Self-pay 2020 Medicare HU[employer]NA MEDICARE HU[employer]NA MEDICARE PPO [id number] 2020-Present [phone] [facility] [id number] [place] [address] PPO [id number] 1959 Medicare [id number] 1955 Unknown [id number] 1955 Unknown [id number] 2..[id number] 1955 Unknown [id number] 2.16.840.1.919267.3.579.2.593 1955 Unknown [id number] 2..840.1.608857.3.579.2.593 1955 Unknown [id number] 2.16.840.1.188495.3.579.2.593 1955 Unknown [id number] 2.16.840.1.251169.3.579.2.727 1955 Unknown [id number] 2.16.840.1.219117.3.579.2.727 1955 Unknown [id number] 2.16.840.1.704974.3.579.2.727 1955 Unknown [id number] 2.16.840.1.948871.3.579.2.727 1955 Unknown [id number] 2.16.840.1.790725.3.579.2.125 9 1955 Unknown [id number] 2.16.840.1.699576.3.579.2.125 9 1955 Unknown [id number] 2.16.840.1.492158.3.579.2.125 9 1955 Unknown [id number] 2.16.840.1.389832.3.579.2.125 9 Unknown [id number] 2.16.840.1.887267.3.579.2.531 Unknown [id number] 2.16.840.1.737923.3.579.2.531 Social History Date Type Detail Facility Start: 10-22-2022 End: 04-01-2023 Tobacco smoking status Ex-smoker (finding) [facility] Tobacco smoking status Never [facility] Start: 04-01-2023 End: 06-17-2023 Sex Assigned At Male Locke Prasanth [facility] End: 07-27-1982 History of tobacco use Current smoker [facility] End: 07-27-1982 History of tobacco use Cigarette Smoker [facility] Start: 04-01-2023 End: 06-17-2023 Cigarettes smoked current (pack per day) - Reported 0.5 [facility] Start: 04-01-2023 Tobacco use and exposure Smokeless tobacco non-user [facility] Start: 04-01-2023 End: 08-27-2023 Alcohol intake Ex-drinker (finding) [facility] Start: 1955 Sex Assigned At Not on file C [facility] Start: 1955 Sex Assigned At Male F [facility] Goals Date Patient Goal Desired Activity /State Functional Status Date Assessment Result Facility 10-22-2022 Functional Status N/A [facility] Clinical Notes 10-22-2022 to 10-05-2023 Telephone Encounter - Aurea Chu RN - 10/05/2023 2:53 PM Azam Huang MD - 08/27/2023 9:42 AM Azam Good MD - 06/17/2023 10:16 AM EST Note Date & Type Note Facility 10-05-2023 Miscellaneous Notes Please review and sign if agreeable. Aurea Chu RN documented in this encounter [facility] 09-04-2023 Note Subjective Patient ID: Arvind Rm [...] past 36 hour(s)). No follow-ups on file. [facility] 08-27-2023 Note HNO ID: [id number] Author: Azam GUILLERMO MD Service: ? Author [...] Signed by: Azam Guillermo MD cc: Gael Josiane [address] [place] [phone] Joey Meadows MD [address] [place] [address] 08-27-2023 History of Presen t illness Narrative Radiation Oncology -follow-up note PATIENT [...] by: Azam Guillermo MD cc: Gael Thomas [address] [place] [phone] Joey Meadows MD [address] [place] [phone] documented in this encounter [facility] 06-17-2023 Note HNO ID: [id number] Author: Azam Guillermo MD Service: ? Author [...] by: Azam Guillermo MD cc: Gael Thomas [address] [place] [phone] Joey Meadows MD [address] [place] [id number] [place] [address] 06-17-2023 History of Presen t illness Narrative Radiation Oncology -follow-up note PATIENT [...] disease. LABORATORY: Latest Reference Range & Units 09/06/23 13:58 06/03/23 10:39 Thyroglobulin Ab, Serum <4.0 [...] by: Azam Guillermo MD cc: Gael Thomas [address] [place] [phone] Joey Meadows MD [address] [place] [phone] documented in this encounter [facility] 06-03-2023 Note HNO ID: [id number] Author: Azam Guillermo MD Service: ? Author Type: Physician Type: Progress Notes Filed: 06/04/2023 1:08 PM Note Text: PATIENT NAME: Arvind Rm PATIENT : 1955 See note at [facility] 06-03-2023 History of Presen t illness Narrative PATIENT NAME: Arvind Rm PATIENT : 1955 See note at [facility] documented in this encounter [facility] 05-22-2023 Note Subjective Patient ID: Arvind [...] past 36 hour(s)). No follow-ups on file. [facility] 05-22-2023 Note Subjective Patient ID: Arvind Rm is a 68 y.o. male who presents for No chief complaint on file.. HPI 68 y.o. male with history of RLE DVT, seen at [facility] on 03/19. Patient has no history [...] past 36 hour(s)). No follow-ups on file. [facility] 04-28-2023 History and physical note Note Date/Time April 28, 2023 8: 05am [facility] [address] [place] [address] Gastroenterology H&P Signed Patient: Arvind Rm MR#: [id number] : 1955 Acct:[id number] Age/Sex: 68 / M Adm Date: 3 Loc: Room: Type: [facility] Attending Dr: Modesto Guzmán MD Copies to: [...] Guzmán M.D. Documented By: Modesto Guzmán MD 04/28/23803 Signed By: <Electronically signed by Modesto Guzmán MD> 04/28/23804 [facility] Work Phone: [phone] [facility] Nurse Note* Sherie Reich LPN - [...] assist. Sherie Reich LPN [facility] NoteHNO ID: [id number] Author: Azam Guillermo MD Service: ? Author Type: Physician Type: Progress Notes Filed: 04/08/2023 10:50 AM Note Text: Radiation Oncology - New Patient/Consult Note PATIENT NAME: Arvind Rm PATIENT : 1955 REQUESTING PROVIDER: Dr. Meadows Primary Site: Thyroid Date of Diagnosis: March [...] soft tissues with c (more content not included)...[facility] 04-01-2023 History of Present illness Narrative* Azam Guillermo MD - 04/01/2023 12:23 PM EDT Radiation Oncology - New Patient/Consult Note PATIENT NAME: Arvind Rm PATIENT : 1955 REQUESTING PROVIDER: Dr. Meadows Primary Site: Thyroid Date of Diagnosis: March [...] Azam Guillermo MD cc: Gael Thomas [address] [place] [phone] Joey Meadows MD [address] [place] [phone] [facility]23 Note03/20/23 1246 Admission Assessment Questions Verify [...] He has no history of HHC or SNF.[facility]08-25-2023 Note Attestation signed by Harshal Arredondo MD at 03/20/2023 4:02 PM Review the CAT scan that was done for the veins. 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 With this, patient can be treated only with anticoagulation with no need for any operative intervention. [facility] Vascular Surgery DAILY PROGRESS NOTE Subjective No [...] days Lab Units 03/20/23 0604 03/20/23 0120 03/19/231947 WBC AUTO 10*3/uL 8.59 7.74 8.68 HEMOGLOBIN g/dL 13.8 13.7 14.7 HEMATOCRIT % 39.0 39.2 42.8 PLATELETS AUTO 10*3/uL 205 200 219 Results from last 7 days Lab Units 03/20/23 0120 03/19/231946 SODIUM mmol/L 137 138 POTASSIUM mmol/L 3.8 [...] Vascular Surgery Service General Surgery Resident, PGY-1 03/20/23[facility]04[facility]20[facility] NoteOPERATIVE NOTE OPERATION DATE: 11/05/2022 PREOPERATIVE [...] within one year. CC: Gael Thomas M.D.[id number] NoteChief Complaint consultation for screening colonoscopy HPI Staff 67 year old male presents on consultation from Dr. Thomas for screening colonoscopy. Denies abdominal or rectal pain. No rectal bleeding or change in bowel habits. Denies nausea or vomiting. No unexplained weight loss. Last colonoscopy completed greater than 10 years ago; reported normal per patient. B rother with history of colon polyp. Sister with [...] inactivated - Not Given Patient Refuses SARSCoV2 mRNA(rhkwerjtg-jdgd-hfzucu) vac 03/24/2022 Recorded SARSCoV2 mRNA(azuxcufeg-qwcq-pbstsl) vac 10/16/2021 Recorded SARS-CoV-2 (COVID-19) mRNA BNT-162b2 vax 04/17/2021 Recorded SARS-CoV-2 (COVID-19) mRNA BNT-162b2 vax 03/27/2021 [facility]edMer[facility] HospitalComment on above:Result Comment: Electronically Signed By: DAVIDA CHIN, Violeta Vallecillo\Date and Time Signed: 10/22/22 16:00 EDTEvaluation + Plan note No data available for this section [facility] evaluation note* Diagnosis Thyroid cancer (HCC)- Primary Malignant neoplasm of thyroid gland documented in this encounter [facility] note* Diagnosis Thyroid cancer (HCC)- Primary Malignant neoplasm of thyroid gland documented in this encounter [facility] noteNo InformationNortCoatesville [facility] [employer] Other Evlbpgbjdi noteNo assessment information available [facility] Work Phone: evaluation note* Diagnosis Thyroid cancer (HCC)- Primary Malignant neoplasm of thyroid gland documented in this encounter [facility] note* Diagnosis Thyroid cancer (HCC)- Primary Malignant neoplasm of thyroid gland documented in this encounter [facility] note* Diagnosis Thyroid cancer (HCC)- Primary Malignant neoplasm of thyroid gland documented in this encounter [facility] note* Diagnosis Thyroid cancer (HCC)- Primary Malignant neoplasm of thyroid gland documented in this encounter [facility] note* Diagnosis Thyroid cancer (HCC)- Primary Malignant neoplasm of thyroid gland documented in this encounter [facility] general Narrative - Reported* Type Description Date Surgical History thyroidectomy [facility] [employer] Other Hospital Discharge instructions No data available for this section [facility] Discharge instructions Additional Instructions DISCHARGE INSTRUCTIONS [...] NOT operate machinery such as power tools, lawn mowers, snow blowers, sewing machines, etc. for 24 hours. [...] years. -Follow up with PCP. -Office number [phone]. [facility] Work Phone: Progress note No data available for this section [facility] Reason for referral (narrative)* Diagnostic Procedure Only (Routine) - Pending Review Specialty Diagnoses / Procedures Referred By Amalia colon Referred To Contact MOLECULAR & FUNCTIONAL IMAGING Diagnoses Thyroid cancer (HCC) Procedures NM THERAPY THYROID I-131 RP THERAPY ORAL ADMINISTRATION Azam Guillermo MD [address] [place] [address] [place] [address] Molecular & Functional Imaging [address] [place] [address] Referral ID Status Reason Start Date Expiration Date Visits Requested Visits Authorized [id number] Pending Review Auto-Generat ed Referral 04/01/2023 04/30/2024 1 1 [facility] Summary Purpose Family History No Family [...] 0.9 mg, INTRAMUSCULAR, ONCE, 1 dose, On Thu06/01/23 at 0900, REFRIGERATE Given 06/01/2023 8:57 AM [...] team informatio n (unrecognized section and content) 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 Start Date End Date Gael Thomas MD [address] [place] [address] PCP - General Family Medicine 04/01/23 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 Start Date End Date Gael Thomas MD [address] [place] [address] PCP - General Family Medicine 04/01/23 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 Start Date End Date Gael Thomas MD [address] [place] [address] PCP - General Family Medicine 04/01/23 Team Status: Active Member Role Status Dates Gael Thomas MD Primary Care Provider Active Team Status: Inactive Member Role Status Dates Modesto Guzmán MD Attending Provider Active Gael Thomas MD Primary Care Provider Active 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 Start Date End Date Gael Thomas MD [address] [place] [address] PCP - General Family Medicine 04/01/23 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 Start Date End Date Gael Thomas MD [address] [place] [address] PCP - General Family Medicine 04/01/23 Team Status: Inactive Member Role Status Dates GCindi Guillermo MD Attending Provider Active Gael Thomas MD Primary Care Provider Active 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 Start Date End Date Gael Thomas MD [address] [place] [address] PCP - General Family Medicine 04/01/23 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 Start Date End Date Gael Thomas MD [address] [place] [address] PCP - General Family Medicine 04/01/23 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 Start Date End Date Gael Thomas MD [address] [place] [address] PCP - General Family Medicine 04/01/23 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 DATE CREATED AUTHOR AUTHOR'S ORGANIZ ATION 08/28/2023 [facility] DATE CREATED AUTHOR AUTHOR'S ORGANIZ ATION 09/09/2023 [facility] DATE CREATED AUTHOR AUTHOR'S ORGANIZ ATION 11/19/2023 [facility] EPIC Source Comments (unrecognize d section and content) In the event this informatio n is protected by the Federal Confidentiality of Alcohol and Drug Abuse Patient Records regulations: The Federal rules restrict any use of the information to criminally investigate or prosecute any alcohol or drug abuse patient.[facility] Hospital[facility] the event this information is protected by the Federal Confidentiality of Alcohol and Drug Abuse Patient Records regulations: The Federal rules restrict any use of the information to criminally investigate or prosecute any alcohol or drug abuse patient.[facility] HospitalIn the event this information is protected by the Federal Confidentiality of Alcohol and Drug Abuse Patient Records regulations: The Federal rules restrict any use of the information to criminally investigate or prosecute any alcohol or drug abuse patient.[facility] HospitalIn the event this information is protected by the Federal Confidentiality of Alcohol and Drug Abuse Patient Records regulations: The Federal rules restrict any use of the information to criminally investigate or prosecute any alcohol or drug abuse patient.[facility] HospitalIn the event this information is protected by the Federal Confidentiality of Alcohol and Drug Abuse Patient Records regulations: The Federal rules restrict any use of the information to criminally investigate or prosecute any alcohol or drug abuse patient.[facility] HospitalIn the event this information is protected by the Federal Confidentiality of Alcohol and Drug Abuse Patient Records regulations: The Federal rules restrict any use of the information to criminally investigate or prosecute any alcohol or drug abuse patient.[facility] HospitalIn the event this information is protected by the Federal Confidentiality of Alcohol and Drug Abuse Patient Records regulations: The Federal rules restrict any use of the information to criminally investigate or prosecute any alcohol or drug abuse patient.[facility] HospitalIn the event this information is protected by the Federal Confidentiality of Alcohol and Drug Abuse Patient Records regulations: The Federal rules restrict any use of the information to criminally investigate or prosecute any alcohol or drug abuse patient.[facility] HospitalIn the event this information is protected by the Federal Confidentiality of Alcohol and Drug Abuse Patient Records regulations: The Federal rules restrict any use of the information to criminally investigate or prosecute any alcohol or drug abuse patient.[facility] HospitalIn the event this information is protected by the Federal Confidentiality of Alcohol and Drug Abuse Patient Records regulations: The Federal rules restrict any use of the information to criminally investigate or prosecute any alcohol or drug abuse patient.[facility] HospitalIn the event this information is protected by the Federal Confidentiality of Alcohol and Drug Abuse Patient Records regulations: The Federal rules restrict any use of the information to criminally investigate or prosecute any alcohol or drug abuse patient.[facility] HospitalIn the event this information is protected by the Federal Confidentiality of Alcohol and Drug Abuse Patient Records regulations: The Federal rules restrict any use of the information to criminally investigate or prosecute any alcohol or drug abuse patient.[facility] HospitalIn the event this information is protected by the Federal Confidentiality of Alcohol and Drug Abuse Patient Records regulations: The Federal rules restrict any use of the information to criminally investigate or prosecute any alcohol or drug abuse patient.[facility] HospitalIn the event this information is protected by the Federal Confidentiality of Alcohol and Drug Abuse Patient Records regulations: The Federal rules restrict any use of the information to criminally investigate or prosecute any alcohol or drug abuse patient.[facility] Reason for Visit (unrecogniz ed section and content) Reason Comments Consult Reason Onset Date Comments Refill Request 05/08/2023 Reason Comments Thyroid Cancer Specialty Diagnoses / Procedures Referred By Amalia t Referred To Contact Diagnoses Thyroid cancer (HCC) Procedures THYROTROPIN INJECTION Engeler, G Oracio, MD [address] [place] [address] Minh Treat Melissa [address] [place] [address] Referral ID Status Reason Start Date Expiration Date V isits Requested Visits Authorized [id number] Authorized 04/02/2023 07/26/2023 99 99 Reason Comments Prostate Cancer Reason Comments Med Change Request Reason Onset Date Comments Refill Request 10/05/2023 FOR RECORDS PERTAINING TO PATIENTS WHO ARE [...] BE BASED ON THE PRIMARY CLINICAL RECORDS. [employer] [facility]. provides no warranty or guarantee of the accuracy or completeness of information in this document.
[2023-12-09 04:09] LABS: PSA, Free 0.67 ng/mL; Prostate Specific Ag 2.9 ng/mL (0.0-4.0)
== END 2023-12-08 07:30 | disposition home or self-care (01) ==
LOC: LAB 07:30
PROVIDERS: PCP Family Medicine; Visit Provider Family Medicine
DX: R97.20 Elevated prostate specific antigen [PSA] (principal)
CPT/HCPCS: 36415; 84153; 84154

== ENCOUNTER 2024-02-17 06:44 | Outpatient (OUT) | payer MEDICARE, SELFPAY ==
--- OUTSIDE RECORDS SUMMARY | 2024-02-17 06:47 | XMS_ITS | CCD ---
Author Organization [facility] [place] Care Team Providers Care Seat Coverer Name Role Phone Gael Thomas Primary Care [...] MCDANIEL Consulting Unavailable KARENA, REGAN Consulting Unavailable TOAN BOYD Consulting Unavailable HOY ., DR MAYO Admitting Unavailable HOY ., DR MAYO Attending Unavailable HOY ., DR MAYO Primary Care Unavailable HOY ., DR MAYO Consulting Unavailable ALPHA, DR DIANA Gonsalez Consulting Unavailable HOY ., DR MAYO Admitting Unavailable HOY ., DR MAYO Attending Unavailable HOY ., DR MAYO Primary Care Unavailable HOY ., DR MAYO Consulting Unavailable NILLVioleta Attending Unavailable NILL, Violeta Albert Attending Unavailable HoyGael Referring Unavailable NILL, Violeta R Attending Unavailable NILL, Violeta Albert Referring Unavailable NILL, Violeta Albert Attending Unavailable Hoy Gael CHIN Primary Care Provider [phone] Modesto Guzmán Unavailable MD Modesto Guzmán Attending Provider MD Gael Thomas Primary Care Provider [phone] MD Modesto Guzmán Attending Provider [phone] MD Gael Thomas Primary Care Provider [phone] MD Temo Guillermo Attending Provider Asaad, Imad Admitting Unavailable Hoy, Gael M Primary Care Unavailable Asamalik, Imad Attending Unavailable Temo Guillermo Attending Unavailable Temo Guillermo Admitting Unavailable Hoy, Gael M Primary Care Unavailable LISS JI Referring Unavailable LISS JI Attending Unavailable KOJO FREITAS Referring Unavailable NAZZAL, MUNIER Admitting Unavailable NAREENAAL, MUNIER Attending Unavailable BRIAN MANZO Attending Unavailable ANNALISE MCCRAY Referring Unavailable GLEN DUPONT Referring Unavailable NAZZAL, MUNIER Referring Unavailable NAZZAL, MUNIER Referring Unavailable Gael Thomas MD Primary Care Provider [phone] JOEY MEADOWS Attending Unavailable JOEY MEADOWS Attending Unavailable JOEY MEADOWS Attending Unavailable JOEY MEADOWS Attending Unavailable Gael Thomas MD Primary Care Provider [phone] HOY, GAEL M Primary Care Unavailable Azam [...] Care Unavailable JOEY MEADOWS Referring Unavaila ble Azam GUILLERMO Attending Unavailable Azam GUILLERMO Attending Unavailable HOY, GAEL M Primary Care Unavailable HOY, GAEL M Primary Care Unavailable Allergies Allergy Classification Reported Allergen(s) Allergy Type Date of Onset Reaction(s) Facility Lincosamides (antibiotic) (1 source) Clindamycin; Translations: [CLINDAMYCIN] Drug Allergy 3 [facility] Repository (1 source) No Known Medication Allergies; Translations: [No Known Medication Allergies] Propensity to adverse reactions (disorder) [facility] Repository (19 sources) Clindamycin; Translations: [CLINDAMYCIN] Drug Allergy 3 Rash [facility] (1 source) Clindamycin Drug Allergy 3 [facility] Repository (1 source) Shellfish; Translations: [SHELLFISH DERIVED] Propensity to adverse reactions to drug (disorder) 3 [facility] Repository Medications Current Medications Medication Drug Class(es) Dates Sig (Normalized) Sig (Original) Ascorbic Acid (1 source) Vitamin C Vitamin C Active cefuroxime 500 mg oral tablet (1 source) Cephalosporin Antibacterial take 1 tablet by mouth every twelve hours Cefuroxime Axetil 500 MG 1 tablet Orally Twice a day for 10 day(s) Active famotidine 20 mg oral tablet (8 sources) Histamine-2 Receptor Antagonist Start: 05-25-2023 End: 08-23-2023 take 1 tablet by mouth once daily at bedtime famotidine (PEPCID) 20 mg tablet Take 1 tablet by mouth daily at bedtime. 0 08/17/2023 Active Comment on above: Take 20 mg by mouth. Take 1 tablet by mireya th daily at bedtime. levothyroxine sodium 0.125 mg oral tablet (20 sources) l-Thyroxine Start: 04-01-2023 End: 10-05-2023 take 1 tablet by mouth once daily levothyroxine (SYNTHROID) 125 mcg tablet Take 1 tablet by mouth once daily. 90 tablet 2 10/05/2023 Active Comment on above: Take 1 tablet by mireya th once daily. Start 06/04/23 take 1 tablet by mireya th once daily Take 1 tablet by mireya th once daily. Magnesium (1 source) take 1 tablet by [...] Twice a day for 10 days Active omeprazole 40 mg delayed release oral capsule (8 sources) Proton Pump Inhibitor Start: 05-25-2023 End: 08-23-2023 omeprazole (PRILOSEC) 40 mg capsule Take 40 mg by mouth. 0 05/25/2023 Active Comment on above: Take 40 mg by mouth. polyethylene glycol 3350 [id number] mg / potassium chloride 2970 mg / sodium bicarbonate 6740 mg / sodium chloride 5860 mg / sodium sulfate 99819 mg powder for oral solution (1 source) Osmotic Laxative Start: 01-19-2023 PEG-3350/Electroly kandis 236 GM as directed Orally once daily for 1 days Dec, Active simvastatin 20 mg oral tablet (2 sources) HMG-CoA Reductase Inhibitor Start: 12-28-2023 take 1 tablet by mouth once daily at bedtime simvastatin (ZOCOR) 20 mg tablet Take 20 mg by mouth daily at bedtime. 0 12/28/2023 Active Vitamin D3 (1 source) Vitamin D3 Activ e Zinc (1 source) Zinc 15 Active Completed/Discontinued Medications Medication Drug Class(es) Dates Sig (Normalized) Sig (Original) apixaban 5 mg oral tablet (17 sources) Factor Xa Inhibitor Start: 03-20-2023 End: 01-19-2024 take 1 tablet by mouth every twelve hours apixaban (ELIQUIS) 5 mg tab(s) Take 5 mg by mouth every 12 hours. 0 03/20/2023 01/19/2024 Discontinued (Course of therapy completed) Start: 03-20-2023 End: 07-04-2023 apixaban (ELIQUIS) 5 mg tab( s) Take 5 mg by mouth. 0 03/20/2023 07/04/2023 Active Comment on above: Take 5 mg by mouth. Take 5 mg by mouth e very 12 hours. cefTRIAXone (1 source) Cephalosporin Antibacterial Start: 020 Rocephin 500 mg May, 500 mg liothyronine sodium 0.025 mg oral tablet (12 sources) l-Triiodothyronine End: 024 liothyronine (CYTOMEL) 25 mcg tablet Comment on above: 1 tablet on an empty stomach Orally BID pilocarpine hydrochloride 5 mg oral tablet (12 [...] Test Name Value Interpretation Reference Range Facility CNOVon 01-19-2024 CNOV Office Visit (RADTSA ) ARVIND RM ([id number]) 1955 M Date Time Provider Department 01/19/24 3:00 PM Azam GUILLERMO During your visit today, we recorded the following information about you: Pulse Respiration Blood pressure Weight 57/minute 16/minute 129/75 83.2 kg Azam Guillermo MD 01/29/2024 11:01 AM Signed Radiation Oncology -follow-up note PATIENT [...] 74.3 mCi. HPI: Patient is doing well. Denies any palpitations feeling of jitteriness chest pain or other issues. No dysphagia. Denies neck pain or other issues. RADIOLOGY: Post I-131 whole-body scan 06/10/2023: Uptake within an area of thyroid bed only. No suspected metastatic disease. LABORATORY: Latest Reference Range AND Units 04/01/23 13:58 06/03/23 10:39 08/18/23 09:27 01/05/24 08:45 Thyroglobulin Ab, Serum <4.0 IU/mL <0.9 Thyroglobulin, Serum 1.6 - 50.0 ng/mL 2.8 Thyroglobulin, LC-MS/MS 1.3 - 31.8 ng/mL 1.7 <0.5 (L) T4 5.5 - 10.2 ug/dL 7.1 6.9 TSH 0.270 - 4.200 mIU/L 0.535 2.390 (L): Data is abnormally low FOCUSED ROS: Dysphagia: No Mucositis: No Voice Changes:Yes improved/no lymph resolved Fatigue: No Nausea: No Vomitting: No Pain: No Taste: No Weight loss: No ALLERGIES Allergen Reactions Clindamycin Rash MEDICATIONS: levothyroxine (SYNTHROID) 125 mcg tablet Take 1 tablet by mouth once daily. apixaban (ELIQUIS) 5 mg tab(s) Take 5 mg by mouth every 12 hours. famotidine (PEPCID) 20 mg tablet Take 1 tablet by mouth daily at bedtime. omeprazole (PRILOSEC) 40 mg capsule Take 40 mg by mouth. PAST MEDICAL HISTORY Diagnosis Date DVT (deep [...] Types: Cigarettes Quit date: 1982 Years since quittin.5 Smokeless tobacco: Never Substance Use Topics Alcohol [...] As noted in HPI PHYSICAL EXAM: VS: There were no vitals taken for this visit. KPS: 100 General Appearance: Alert and oriented. [...] therapy on 06/03/2023, 74.3 mCi. Doing well. Thyroglobulin undetectable. TSH May need to be further suppressed although overall risk lower for this patient. For the time being continue current Synthroid dose of 125 mcg daily, continue surveillance of thyroid labs. Recommend Thyrogen stimulated thyroglobulin in 4 to 6 months. Signed by: Azam Guillermo MD cc: Gael Thomas [address] [place] [phone] Joey Meadows MD 112 [facility] [address] [facility] [address] Allergies As of Date: 01/19/2024 Noted Allergy Reaction CLINDAMYCIN 04/01/2023 2 - Rash Date Reviewed: 01/19/2024 Reviewed by: Sherie Reich LPN - Fully Assessed Reason for Visit: Thyroid Cancer [879] Primary Visit Diagnosis:Thyroid cancer (HCC) [C73] Order(s):THYROGLOBULIN BY LC-MS/MS, SERUM OR PLASMA, FOR THYROGLOBULIN ANTIBODY INTERFERENCE [SQTGMSMS] Order #: [id number] FUTURE THYROGLOBULIN BY LC-MS/MS, SERUM OR PLASMA, FOR THYROGLOBULIN ANTIBODY INTERFERENCE [SQTGMSMS] Order #: [id number] FUTURE T4/THYROXINE [SQT4] Order #: [id number] FUTURE THYROID STIMULATING HORMONE [SQTSH] Order #: [id number] FUTURE Prescriptions as of 01/29/2024 - simvastatin (ZOCOR) 20 (more content not included)... Normal [facility] T4 SerPl-mCncon 01-05-2024 T4 [Mass/Vol] 6.9 ug/dL Normal 5.5-10.2 [facility] Comment on above: Order Comment: Filemon mix Type: BLOOD SPECIMENOrdering Facility: [facility] Address: [address] [place] [address] Performed By: #### 3 016-3, 3026-2 ####[facility] LABCLIA [id number] [place] [address] [place] THYROGLOBULIN BY LC-MS/MS, S JOHN OR PLASMA, FOR THYROGLOBULIN ANTIBODY INTERFERENCEon 01-05-2024 THYROGLOBULIN, LC-MS/MS <0.5 Low 1.3-31.8 [facility] Comment on above: Order Comment: Filemon mix Type: BLOOD SPECIMENOrdering Facility: [facility] Address: [address] [place] [address] Result Comment: Results obtained with different test [...] developed and its performance characteristics determined by [facility]. It has not been cleared or approved by the US Food and Drug Administration. This test was performed in a CLIA certified laboratory and is intended for clinical purposes. Performed By: [facility] [address] [place] [address] Nurse Discharge: Luis Herrera MD, PhD CLIA Number: [id number] Performed By: #### T [facility] ####[facility] [id number] [place] [address] TSH SerPl-aCncon 01-05-2024 TSH Qn 2.390 m[IU]/L Normal 0.270-4.200 [facility] Comment on above: Order Comment: Speci men Type: BLOOD SPECIMENOrdering Facility: [facility] Address: [address] [place] [address] Performed By: #### 3 016-3, 3026-2 ####[facility] LABCLIA [id number] [place] [id number] [place] Follow-Upon 09-04-2023 Follow-Up [id number] Arvind Rm 1955 M Date Provider Department Center 09/04/2023 BRIAN TREVINO HVCVASENDRiley [place] [facility] No family history on file Level of Service:32231 [place] OFFICE/OUTPATIENT ESTABLISHED LOW MDM 20 MIN Normal [facility] CNOVon 08-27-2023 CNOV Office Visit (RADTSA ) ARVIND RM ([id number]) 1955 Date Time Provider Department 08/27/23 10:00 [...] by: Azam Guillermo MD cc: Gael Thomas [address] [place] [address] [place] [phone] Joey Meadows MD [address] [place] [address] [address] [facility] [address] Allergies As of Date: 08/27/2023 Noted Allergy Reaction CLINDAMYCIN 04/01/2023 2 - Rash Date Reviewed: 08/27/2023 Reviewed by: Sherie Reich LPN - Fully Assessed Reason for Visit: Thyroid Cancer [879] Primary Visit Diagnosis:Thyroid cancer (HCC) [C73] Order(s):TSH BLD [SQTSH] Order #: [id number] FUTURE T4/THYROXINE BLOOD [SQT4] Order #: [id number] FUTURE THYROGLOBULIN BY LC-MS/MS, SERUM OR PLASMA, FOR THYROGLOBULIN ANTIBODY INTERFERENCE [SQTGMSMS] Order #: [id number] FUTURE Prescriptions as of 08/27/2023 - apixaban (ELIQUIS) 5 mg tab(s) Take 5 mg by mouth every 12 hours. - famotidine ( (more content not included)... Normal [facility] T4 SerPl-mCncon 08-18-2023 T4 [Mass/Vol] 7.1 ug/dL Normal 5.5-10.2 [facility] Comment on above: Order Comment: Specwaqar mix Type: BLOOD SPECIMENOrdering Facility: [facility] Address: [address] [place] [address] Performed By: #### 3 016-3, 3026-2 ####[facility] LABCLIA [id number] [place] [address] [place] TSH SerPl-aCncon 08-18-2023 TSH Qn 0.535 m[IU]/L Normal 0.270-4.200 [facility] Comment on above: Order Comment: Filemon mix Type: BLOOD SPECIMENOrdering Facility: [facility] Address: [address] [place] [address] Performed By: #### 3 016-3, 3026-2 ####[facility] JUANITA [id number] [place]BI [id number] [id number] [facility] CNOVon 06-17-2023 CNOV Office Visit (RADTSA ) ARVIND RM ([id number]) 1955 M Date Time Provider Department 06/17/23 [...] by: Azam Guillermo MD cc: Gael Thomas [address] [place] [phone] Joey Meadows MD [address] [place] [address] [address] [facility] [address] Allergies As of Date: 06/17/2023 Noted Allergy Reaction CLINDAMYCIN 04/01/2023 2 - Rash Date Reviewed: 06/17/2023 Reviewed by: Aurea Chu RN - Fully Assessed Reason for Visit: Prostate Cancer [590] Primary Visit Diagnosis:Thyroid cancer (HCC) [C73] Order(s):T4/THYROXINE BLOOD [SQT4] Order #: [id number] FUTURE TSH BLD [SQTSH] Order #: [id number] FUTURE Prescriptions as of 06/24/2023 - omeprazole (PRILOSEC) 40 mg capsule Take 40 mg by mouth. - famotidine (PEPCID) 20 mg tablet Take 20 mg by mouth. - levothyroxine (SYNTHROID) 125 mcg tablet Take 1 tablet by mouth once daily. Sta (more content not included)... Normal [facility] thyroid ca whole bodyon 1 08-10-2022 [place] thyroid ca whole body [facility] [place] [address] Nuclear Medicine Report Signed Patient: Arvind Rm MR#: [id number] : 1955 Acct:[id number] Age/Sex: 68 / M ADM Date: 06/03/23 Loc: [place] Room: Type: [facility] Attending Dr: Temo Guillermo MD Copies [...] Pallavi Cline M.D.06/10/2023 4:04 PM Dictation Location: [place] [address] Transcribed By: [facility] 06/10/23 160 Dictated By: Pallavi Cline MD 06/10/23 1601 Signed By: 06/10/23 160 [facility] Javon 06-05-2023 CNPN Telephone (RADTSA) ARVIND RM ([id number]) 1955 M Date Time Provider Department 06/05/23 Azam GUILLERMO During your visit today, we recorded the following information about you: Sherie Reich LPN 06/05/2023 1:42 PM Signed Please sign pended Thyroid WBS and fax to [facility] and Nuc Med. ELIJAH Wall Angela, RN 06/08/2023 8:21 AM Signed Order was faxed. Aurea Chu RN Allergies As of Date: 06/05/2023 Noted Allergy Reaction CLINDAMYCIN 04/01/2023 2 - Rash Date Reviewed: 06/02/2023 Reviewed by: Graves, Sherie, DIRECTOR PART - Fully Assessed Reason for Visit: Orders [681] Primary Visit Diagnosis:Thyroid cancer (HCC) [C73] Order(s):NM THYROID CA WB [4102761] Order #: [id number] FUTURE Prescriptions as of 06/08/2023 - omeprazole [...] Status:Closed by Azam GUILLERMO on 06/05/23 Normal [facility] Thyroglobulin and Thyrogobul in Ab panelon 06-04-2023 Thyroglobulin Ab Qn <4.0 IU/mL [facility] Thyroglobulin, Serum 2.8 ng/mL 1.6 - 5 0.0 ng/mL [facility] CNOVon 06-03-2023 CNOV Office Visit (RADTSA ) ARVIND RM ([id number]) 1955 M Date Time Provider Department 06/03/23 12:15 PM Azam GUILLERMO RADTSA During your visit today, we recorded the following information about you: Azam Guillermo MD 06/04/2023 1:08 PM Signed PATIENT NAME: Arvind Rm PATIENT : 1955 See note at [facility] Allergies As of Date: 06/03/2023 Noted Allergy Reaction CLINDAMYCIN 04/01/2023 2 - Rash Date Reviewed: 06/02/2023 Reviewed by: Sherie Reich LPN - Fully Assessed Primary Visit Diagnosis:Thyroid cancer (HCC) [C73] Order(s):THYROGLOBULIN , SERUM WITH REFLEX TO IA OR LC-MS/MS [SQTHYRORF] Order #: [id number] FUTURE Prescriptions as of 06/04/2023 - omeprazole [...] Encounter Status:Closed by Azam GUILLERMO on 06/04/23 [facility] tx radpharm oralon 2022 [place] radpharm oral [facility] [place] [address] Nuclear Medicine Report Signed Patient: Arvind Rm MR#: [id number] : 1955 Acct:[id number] Age/Sex: 68 / M ADM Date: 06/03/23 Loc: ME Room: Type: [facility] Attending Dr: Temo Guillermo MD Copies to: Azam Guillermo MD Ordering Provider: Azma Guillermo MD Date of Service: 06/03/23 NM/NM [...] 06/03/23 1226 Signed By: 08/07/23 1102 [facility] Thyroglobulin and Thyrogobul in Ab panelon 06-03-2023 Thyroglobulin Ab Qn [IU]/mL Normal <4.0 [facility] Comment on above: Order Comment: Filemon mix Type: BLOOD SPECIMENOrdering Facility: [facility] Address: [address] [place] [address] Result Comment: The Thyroglobulin Antibody test was performed using the CampuSceneel DXI paramagnetic particle chemiluminescent immunoassay method. Results obtained with different assay methods or kits cannot be used interchangeably. Performed By: #### 5 7780-9 ####[facility] [id number] [place] [address] [place] THYROGLOBULIN, SERUM 2.8 ng/mL Normal 1.6-50.0 [facility] Comment on above: Order Comment: Filemon mix Type: BLOOD SPECIMENOrdering Facility: [facility] Address: [address] [place] [address] Result Comment: The Thyroglobulin test was performed using the OpenDoor Unicel DXI paramagnetic particle chemiluminescent immunoassay method. Results obtained with different assay methods or kits cannot be used interchangeably. Performed By: #### 5 7780-9 ####[facility] [id number] [place] [address] [place] CNOVon 06-02-2023 CNOV Office Visit (RADTSA ) ARVIND RM ([id number]) 1955 M Date Time Provider Department 06/02/23 9:00 AM LAB/PORT RADT MELISSA NANCY During your visit today, we recorded the following information about you: Temperature Pulse Respiration Blood pressure 97.4 degrees 78/minute 16/minute 132/84 Referring Provider: Azam GUILLERMO [[id number]] Allergies As of Date: 06/02/2023 Noted Allergy [...] Encounter Status:Closed by SHERIE REICH [facility] ARVIND RM ([id number]) 1955 M Date Time Provider Department 06/01/23 9:00 AM LAB/PORT RADT MELISSA CRUZ During your visit today, we recorded the following information about you: Temperature Pulse Respiration Blood pressure 97 degrees 68/minute 16/minute 133/86 Weight 80.3 kg Referring Provider: Azam GUILLERMO [[id number]] Allergies As of Date: 06/01/2023 Noted Allergy [...] Status:Closed by SHERIE REICH on 06/01/23 Normal [facility] Follow-Upon 05-22-2023 Follow-Up [id number] Arvind Rm 1955 M Date Provider Department Center 05/22/2023 LISS HU HVCVASENDO [place] [facility] No family history on file Level of Service:85201 [place] OFFICE/OUTPATIENT ESTABLISHED MOD MDM 30-39 MIN Normal [facility] Yovani 04-28-2023 L -- ---- Specimen: [id number] Received: 04/28/23 Status: CINDY Aponte Num: [id number] Spec Type: Surgical Subm Dr: Modesto Guzmán MD Tissues: A Colon Biopsy (CECAL POLYPS) B Colon Biopsy (ASCENDING POLYP) C Colon Biopsy (RECTAL POLYP) Procedures: HE/Harinder Thornton/Paige L4/3 ---- Age/ Patient Sex Location Account Attending Physician ---- Arvind Rm 68/M [id number] Modesto Guzmán MD ---- SPEC NUM: [id number] RECD: 04/28/23 STATUS: CINDY JESSICA NUM: [id number] NANDO: 04/28/23 DR: Modesto Guzmán MD ENTERED: 04/28/23 [facility] DR: SPEC TYPE: Surgical DEPT: S ORDERED: [...] date of and ascending colon ---- Specimen: [id number] Received: 04/28/23 Status: CINDY Jessica Num: [id number] Spec Type: Surgical Subm Dr: Modesto Guzmán MD Tissues: A Colon Biopsy (CECAL POLYPS) B Colon Biopsy (ASCENDING POLYP) C Colon Biopsy (RECTAL POLYP) Procedures: HE/6, Gross/Micro L4/3 ---- Patient: Arvind Rm [id number] (Continued) ---- Specimen: [id number] Received: 04/28/23 (Continued) Gross Description (Continued) Signed (signature on file) Favian Nash MD 04/29/23 0943 ---- Specimen: [id number] Received: 04/28/23 Status: CINDY Aponte Num: [id number] Spec Type: Surgical Subm Dr: Modesto Guzmán MD Tissues: A Colon Biopsy (CECAL POLYPS) B Colon Biopsy (ASCENDING POLYP) C Colon Biopsy (RECTAL POLYP) Procedures: HE/6, Gross/Micro L4/3 ---- Patient: Arvind Rm [id number] (Continued) ---- Specimen: [id number] Received: 04/28/23 (Continued) Gross Description (Continued) are [...] microscopic examination confirms the diagnosis. CPT Codes 14288f0 ---- ---- Specimen: [id number] Received: 04/28/23 Status: CINDY Aponte Num: [id number] Spec Type: Surgical Subm Dr: Modesto Guzmán MD Tissues: A Colon Biopsy (CECAL POLYPS) B Colon Biopsy (ASCENDING POLYP) C Colon Biopsy (RECTAL POLYP) Procedures: HE/6, Gross/Micro L4/3 ---- Patient: Arvind Rm [id number] (Continued) ---- Signed (signature on file) Favian Nash MD 04/29/23 0943 [facility] THYROGLOBULIN BY MASS SPECTR OMETRYon 04-07-2023 Thyroglobulin [Mass/Vol] 1.7 ng/mL 1.3 - 31.8 ng/mL [facility] CNOVon 04-01-2023 CNOV Office Visit (RADTSA ) ARVIND RM ([id number]) 1955 M Date Time Provider Department 04/01/23 [...] Wed Apr 01, 2023 3:12 PM Status: Paul Rm presents in office today for: Lab Draw during Office Visit . Ordering Provider: Oracio Guillermo M.D. Test (s) ordered: Thyroglobulin level Method for obtaining blood: Phlebotomy was performed, accessing right antecubital vein. Needle removed intact. Dressing secured. Patient denies discomfort, dizziness, light-headedness or weakness and left the department without assist. Sherie Reich LPN Encounter Status:Closed by SHERIE REICH on 04/01/23 [facility] Office Visit (RADTSA ) ARVIND RM ([id number]) 1955 M Date Time Provider Department 04/01/23 [...] HPI ASSESS (more content not included)... Normal [facility] RM ([id number]) 1955 M Date Time Provider Department 04/01/23 [...] cancer (HCC) [C73] Order(s):I-131SODIUMIO DIDECAP PER MCI [E9163HRP] Order #: [id number] Prescriptions as of 04/08/2023 - apixaban (ELIQUIS) [...] Status:Closed by Azam GUILLERMO on 04/08/23 Normal [facility] THYROGLOBULIN BY MASS SPECTR OMETRYon 04-01-2023 THYROGLOBULIN, LC-MS/MS 1.7 ng/mL Normal 1.3-31.8 [facility] Comment on above: Order Comment: Speci men Type: BLOOD SPECIMENOrdering Facility: [facility] Address: [address] [place], [place] [address] [address] Result Comment: Results obtained with different test [...] developed and its performance characteristics determined by [facility]. It has not been cleared or approved by the US Food and Drug Administration. This test was performed in a CLIA certified laboratory and is intended for clinical purposes. Performed By: [facility] [address] [place] [address] Nurse Discharge: Luis Herrera MD, PhD CLIA Number: [id number] Performed By: #### T [facility] ####[facility] [id number] [place] [address] APTTon 03-20-2023 ACTIVATED PARTIAL THROMBOPLASTIN TIME IN PPP BY COAGULATION ASSAY 62.7 Seconds High 25.0-35.0 [facility] Comment on above: Order Comment: Monit or aPTT level 6 hours after rate change, then every 6 hours until therapeutic twice. While therapeutic monitor every AM. Result Comment: Clin ical significance of the APTT is questionable in the presence of heparin. Performed By: #### L AB103 #### [facility] ([facility]) [address] [place] [address] ACTIVATED PARTIAL THROMBOPLASTIN TIME IN PPP BY COAGULATION ASSAY 76.6 Seconds High 25.0-35.0 [facility] Comment on above: Order Comment: Monit or aPTT level 6 hours after rate change, then every 6 hours until therapeutic twice. While therapeutic monitor every AM. Result Comment: Clin ical significance of the APTT is questionable in the presence of heparin. Performed By: #### L [id number] #### [facility] ([facility]) [address] [place] [address] ACTIVATED PARTIAL THROMBOPLASTIN TIME IN PPP BY COAGULATION ASSAY 118.5 Seconds High 25.0-35.0 [facility] Comment on above: Order Comment: Basel ine aPTT before initiating heparin infusion. Result Comment: Clin ical significance of the APTT is questionable in the presence of heparin. Performed By: #### L [id number] #### [facility] ([facility]) [address] [place] [address] BASIC METABOLIC PANELon 08-2 Anion gap [Moles/Vol] 12 mmol/L Normal 7-20 [facility] Comment on above: Performed By: #### L [id number] #### [facility] ([facility]) [address] [place] [address] Calcium [Mass/Vol] 8.7 mg/dL Normal 8.6-10.3 [facility] Comment on above: Performed By: #### L [id number] #### [facility] ([facility]) [address] [place] [address] Chloride [Moles/Vol] 105 mmol/L Normal 98-107 [facility] Comment on above: Performed By: #### L [id number] #### [facility] ([facility]) [address] [place] [address] CO2 [Moles/Vol] 24 mmol/L Normal 21-31 [facility] Comment on above: Performed By: #### L [id number] #### [facility] [address] [place] [address] Creatinine [Mass/Vol] 0.93 mg/dL Normal 0.70-1.30 [facility] Comment on above: Performed By: #### L [id number] #### [facility] ([facility]) [address] [place] [address] GLOMERULAR FILTRATION RATE ML/MIN/1.73 SQ M.PREDICTED 89.4 mL/min/1.73m*2 Normal >60.0 [facility] Comment on above: Result Comment: The [facility]???s estimated glomerular filtration rate (eGFR) will [...] individuals. Performed By: #### L [id number] #### [facility]) [address] [place] [address] Glucose [Mass/Vol] 125 mg/dL High 70-100 [facility] Comment on above: Performed By: #### L [id number] #### [facility] ([facility]) [address] [place] [address] Potassium [Moles/Vol] 3.8 mmol/L Normal 3.5-5.1 [facility] Comment on above: Performed By: #### L [id number] #### [facility] ([facility]) [address] [place] [address] Sodium [Moles/Vol] 137 mmol/L Normal 136-145 [facility] Comment on above: Performed By: #### L [id number] #### [facility] ([facility]) [address] [place] [address] Urea nitrogen [Mass/Vol] 22 mg/dL Normal 7-25 [facility] Comment on above: Performed By: #### L [id number] #### [facility] ([facility]) [address] [place] [address] UREA NITROGEN/CREATININE (MASS RATIO) IN SER/PLAS 23.7 Normal [facility] Comment on above: Performed By: #### L [id number] #### [facility]) [address] [place] [address] CBCon 03-20-2023 Erythrocyte distribution width (RBC) [Ratio] 12.1 % Normal 11.5-15.0 [facility] Comment on above: Performed By: #### L [id number] #### [facility] ([facility]) [address] [place] [address] ERYTHROCYTE MEAN CORPUSCULAR HEMOGLOBIN CONCENTRATION (G/DL) BY AUTOMATED 35.4 g/dL High 32.0-35.0 [facility] Comment on above: Performed By: #### L [id number] #### [facility]) [address] [place] [address] Hematocrit (Bld) [Volume fraction] 39.0 % Normal 39.0-55.0 [facility] Comment on above: Performed By: #### L [id number] #### [facility] ([facility]) [address] [place] [address] Hemoglobin (Bld) [Mass/Vol] 13.8 g/dL Normal 13.0-17.0 [facility] Comment on above: Performed By: #### L [id number] #### [facility] ([facility]) [address] [place] [address] MCH (RBC) [Entitic mass] 30.8 pg Normal 27.0-33.0 [facility] Comment on above: Performed By: #### L [id number] #### [facility] [address] [place] [address] MCV (RBC) [Entitic vol] 87.1 fL Normal 82.0-98.0 [facility] Comment on above: Performed By: #### L [id number] #### [facility] ([facility]) [address] [place] [address] PLATELETS (10*3/UL) IN BLOOD AUTOMATED COUNT 205 10*3/uL Normal 150-400 [facility] Comment on above: Performed By: #### L [id number] #### [facility] [address] [place] [address] RBC (Bld) [#/Vol] 4.48 10*6/uL Normal 4.20-5.70 [facility] Comment on above: Performed By: #### L [id number] #### [facility] ([facility]) [address] [place] [address] WBC (Bld) [#/Vol] 8.59 10*3/uL Normal 4.00-10.60 [facility] Comment on above: Performed By: #### L [id number] #### [facility] ([facility]) [address] [place] [address] CBC WITH AUTO DIFFERENTIALon 03-20-2023 Basophils (Bld) [#/Vol] 0.02 10*3/uL Normal 0.00-0.20 [facility] Comment on above: Performed By: #### L [id number] #### [facility] [address] [place] [address] Basophils/100 WBC (Bld) 0.3 % Normal 0.0-1.0 [facility] Comment on above: Performed By: #### L [id number] #### [facility] [address] [place] [address] Eosinophils (Bld) [#/Vol] 0.12 10*3/uL Normal 0.00-0.50 [facility] Comment on above: Performed By: #### L [id number] #### [facility]) [address] [place] [address] Eosinophils/100 WBC (Bld) 1.6 % Normal 0.0-6.0 [facility] Comment on above: Performed By: #### L [id number] #### [facility] ([facility]) [address] [place] [address] Erythrocyte distribution width (RBC) [Ratio] 12.1 % Normal 11.5-15.0 [facility] Comment on above: Performed By: #### L [id number] #### [facility] ([facility]) [address] [place] [address] ERYTHROCYTE MEAN CORPUSCULAR HEMOGLOBIN CONCENTRATION (G/DL) BY AUTOMATED 34.9 g/dL Normal 32.0-35.0 [facility] Comment on above: Performed By: #### L [id number] #### [facility] ([facility]) [address] [place] [address] Hematocrit (Bld) [Volume fraction] 39.2 % Normal 39.0-55.0 [facility] Comment on above: Performed By: #### L [id number] #### [facility] ([facility]) [address] [place] [address] Hemoglobin (Bld) [Mass/Vol] 13.7 g/dL Normal 13.0-17.0 [facility] Comment on above: Performed By: #### L [id number] #### [facility] ([facility]) [address] [place] [address] Immature granulocytes (Bld) [#/Vol] 0.08 10*3/uL Normal 0.00-0.20 [facility] Comment on above: Performed By: #### L [id number] #### [facility] ([facility]) [address] [place] [address] Immature granulocytes/100 WBC (Bld) 1.0 % Normal 0.0-1.0 [facility] Comment on above: Performed By: #### L [id number] #### [facility] ([facility]) [address] [place] [address] Lymphocytes (Bld) [#/Vol] 1.78 10*3/uL Normal 1.20-4.00 [facility] Comment on above: Performed By: #### L [id number] #### [facility] [address] [place] [address] Lymphocytes/100 WBC (Bld) 23.0 % Normal 20.0-45.0 [facility] Comment on above: Performed By: #### L [id number] #### [facility] [address] [place] [address] MCH (RBC) [Entitic mass] 30.6 pg Normal 27.0-33.0 [facility] Comment on above: Performed By: #### L [id number] #### [facility] [address] [place] [address] MCV (RBC) [Entitic vol] 87.5 fL Normal 82.0-98.0 [facility] Comment on above: Performed By: #### L [id number] #### [facility] [address] [place] [address] Monocytes (Bld) [#/Vol] 0.89 10*3/uL Normal 0.10-1.00 [facility] Comment on above: Performed By: #### L [id number] #### [facility] ([facility] [address] [place] [address] Monocytes/100 WBC (Bld) 11.5 % Normal 5.0-12.0 [facility] Comment on above: Performed By: #### L [id number] #### [facility] [address] [place] [address] Neutrophils (Bld) [#/Vol] 4.85 10*3/uL Normal 1.60-7.60 [facility] Comment on above: Performed By: #### L [id number] #### [facility] [address] [place] [address] Neutrophils/100 WBC (Bld) 62.6 % Normal 40.0-72.0 [facility] Comment on above: Performed By: #### L [id number] #### [facility] [address] [place] [address] NRBC (PER 100 WBCS) BY AUTOMATED COUNT 0.0 % Normal 0 [facility] Comment on above: Performed By: #### L [id number] #### [facility] ([facility]) [address] [place] [address] PLATELETS (10*3/UL) IN BLOOD AUTOMATED COUNT 200 10*3/uL Normal 150-400 [facility] Comment on above: Performed By: #### L [id number] #### [facility] ([facility]) [address] [place] [address] RBC (Bld) [#/Vol] 4.48 10*6/uL Normal 4.20-5.70 [facility] Comment on above: Performed By: #### L [id number] #### [facility] ([facility]) [address] [place] [address] WBC (Bld) [#/Vol] 7.74 10*3/uL Normal 4.00-10.60 [facility] Comment on above: Performed By: #### L [id number] #### [facility]) [address] [place] [address] DSon 03-20-2023 DS Admission Admitted 03/19/2023 for extensive RLE DVT Discharge Diagnosis DVT, lower extremity, proximal, acute, right ([facility]) Discharge Disposition Home or Self Care Discharge [...] Medications These medications were sent to [facility] - [place], [place] - [address], [facility] [address] apixaban 5 mg tablet apixaban 5 mg tablet Activity Patient currently has no discharge activity orders Diet Patient currently has no discharge diet orders Allergies Clindamycin and Shellfish derived Hospital Course Arvind Rm is a 68 y.o. male presenting to [facility] as a direct admit from [facility] on 03/19 for extensive right lower [...] 05/22/2023 10:15 AM Liss Ji NP HVCVASENDO MS HeartVAS Normal [facility] HEPARIN LEVELon 03-20-2023 HEPARIN UNFRACTIONATED (U/ML) IN PPP BY CHROMOGENIC METHOD 0.31 IU/mL Normal 0.3-0.7 [facility] Comment on above: Result Comment: Layne roxaban and Apixaban will interfere with the anti Xa assay used to monitor UFH and LMWH. Performed By: #### L [id number] #### [facility] [address] [place] [address] HEPARIN UNFRACTIONATED (U/ML) IN PPP BY CHROMOGENIC METHOD 0.23 IU/mL Low 0.3-0.7 [facility] Comment on above: Result Comment: Layne roxaban and Apixaban will interfere with the anti Xa assay used to monitor UFH and LMWH. Performed By: #### L [id number] #### [facility] [address] [place] [address] HEPARIN UNFRACTIONATED (U/ML) IN PPP BY CHROMOGENIC METHOD 0.34 IU/mL Normal 0.3-0.7 [facility] Comment on above: Result Comment: Layne roxaban and Apixaban will interfere with the anti Xa assay used to monitor UFH and LMWH. Performed By: #### L [id number] #### [facility] ([facility]) [address] [address] HEPARIN UNFRACTIONATED (U/ML) IN PPP BY CHROMOGENIC METHOD 0.51 IU/mL Normal 0.3-0.7 [facility] Comment on above: Order Comment: Check anti-Xa level every 6 hours while on heparin infusion, or per protocol. Result Comment: Layne roxaban and Apixaban will interfere with the anti Xa assay used to monitor UFH and LMWH. Performed By: #### L [id number] #### [facility] ([facility]) [address] [place] [address] MAGNESIUMon 03-20-2023 Magnesium [Mass/Vol] 2.0 mg/dL Normal 1.9-2.7 [facility] Comment on above: Performed By: #### L [id number] #### [facility] ([facility]) [address] [address] PHOSPHORUSon 03-20-2023 Magnesium [Mass/Vol] 3.5 mg/dL Normal 2.5-5.0 [facility] Comment on above: Performed By: #### L [id number] #### [facility] ([facility]) [address] [place] [address] PROTIME-INRon 03-20-2023 INR IN PPP BY COAGULATION ASSAY 1.15 High 0.90-1.10 [facility] Comment on above: Result Comment: ACCC [...] 1995;[id number]. Performed By: #### L [id number] #### [facility] ([facility]) [address] [place] [address] PROTHROMBIN TIME (PT) IN PPP BY COAGULATION ASSAY 14.7 Seconds Normal 12.3-14.8 [facility] Comment on above: Performed By: #### L [id number] #### [facility] ([facility]) [address] [place] [address] BASIC METABOLIC PANELon 02-25 Anion gap [Moles/Vol] 13 mmol/L Normal 7-20 [facility] Comment on above: Performed By: #### L [id number] #### [facility] ([facility]) [address] [place] [address] Calcium [Mass/Vol] 9.1 mg/dL Normal 8.6-10.3 [facility] Comment on above: Performed By: #### L [id number] #### [facility]) [address] [place] [address] Chloride [Moles/Vol] 101 mmol/L Normal 98-107 [facility] Comment on above: Performed By: #### L [id number] #### [facility] [address] [place] [address] CO2 [Moles/Vol] 28 mmol/L Normal 21-31 [facility] Comment on above: Performed By: #### L [id number] #### [facility] [address] [place] [address] Creatinine [Mass/Vol] 0.97 mg/dL Normal 0.70-1.30 [facility] Comment on above: Performed By: #### L [id number] #### [facility] ([facility]) [address] [place] [address] GLOMERULAR FILTRATION RATE ML/MIN/1.73 SQ M.PREDICTED 85.0 mL/min/1.73m*2 Normal >60.0 [facility] Comment on above: Result Comment: [facility]???s estimated glomerular filtration rate (eGFR) will [...] individuals. Performed By: #### L [id number] #### [facility] ([facility]) [address] [place] [address] Glucose [Mass/Vol] 159 mg/dL High 70-100 [facility] Comment on above: Performed By: #### L [id number] #### [facility] ([facility]) [address] [place] [address] Potassium [Moles/Vol] 3.5 mmol/L Normal 3.5-5.1 [facility] Comment on above: Performed By: #### L [id number] #### [facility] ([facility]) [address] [place] [address] Sodium [Moles/Vol] 138 mmol/L Normal 136-145 [facility] Comment on above: Performed By: #### L [id number] #### [facility] ([facility]) [address] [place] [address] Urea nitrogen [Mass/Vol] 22 mg/dL Normal 7-25 [facility] Comment on above: Performed By: #### L [id number] #### [facility]) [address] [place] [address] UREA NITROGEN/CREATININE (MASS RATIO) IN SER/PLAS 22.7 Normal [facility] Comment on above: Performed By: #### L [id number] #### [facility]) [address] [place] [address] CBC WITH AUTO DIFFERENTIALon 03-19-2023 Basophils (Bld) [#/Vol] 0.04 10*3/uL Normal 0.00-0.20 [facility] Comment on above: Performed By: #### L [id number] #### [facility] ([facility]) [address] [place] [address] Basophils/100 WBC (Bld) 0.5 % Normal 0.0-1.0 [facility] Comment on above: Performed By: #### L [id number] #### [facility] ([facility]) [address] [place] [address] Eosinophils (Bld) [#/Vol] 0.15 10*3/uL Normal 0.00-0.50 [facility] Comment on above: Performed By: #### L [id number] #### [facility] ([facility]) [address] [place] [address] Eosinophils/100 WBC (Bld) 1.7 % Normal 0.0-6.0 [facility] Comment on above: Performed By: #### L [id number] #### [facility]) [address] [place] [address] Erythrocyte distribution width (RBC) [Ratio] 12.3 % Normal 11.5-15.0 [facility] Comment on above: Performed By: #### L [id number] #### [facility]) [address] [place] [address] ERYTHROCYTE MEAN CORPUSCULAR HEMOGLOBIN CONCENTRATION (G/DL) BY AUTOMATED 34.3 g/dL Normal 32.0-35.0 [facility] Comment on above: Performed By: #### L [id number] #### [facility]) [address] [place] [address] Hematocrit (Bld) [Volume fraction] 42.8 % Normal 39.0-55.0 [facility] Comment on above: Performed By: #### L [id number] #### [facility] [address] [place] [address] Hemoglobin (Bld) [Mass/Vol] 14.7 g/dL Normal 13.0-17.0 [facility] Comment on above: Performed By: #### L [id number] #### [facility] [address] [place] [address] Immature granulocytes (Bld) [#/Vol] 0.09 10*3/uL Normal 0.00-0.20 [facility] Comment on above: Performed By: #### L [id number] #### [facility] [address] [place] [address] Immature granulocytes/100 WBC (Bld) 1.0 % Normal 0.0-1.0 [facility] Comment on above: Performed By: #### L [id number] #### [facility] [address] [place] [address] Lymphocytes (Bld) [#/Vol] 2.02 10*3/uL Normal 1.20-4.00 [facility] Comment on above: Performed By: #### L [id number] #### [facility] [address] [place] [address] Lymphocytes/100 WBC (Bld) 23.3 % Normal 20.0-45.0 [facility] Comment on above: Performed By: #### L [id number] #### [facility] [address] [place] [address] MCH (RBC) [Entitic mass] 30.6 pg Normal 27.0-33.0 [facility] Comment on above: Performed By: #### L [id number] #### [facility] [address] [place] [address] MCV (RBC) [Entitic vol] 89.2 fL Normal 82.0-98.0 [facility] Comment on above: Performed By: #### L [id number] #### [facility] [address] [place] [address] Monocytes (Bld) [#/Vol] 0.71 10*3/uL Normal 0.10-1.00 [facility] Comment on above: Performed By: #### L [id number] #### [facility]) [address] [place] [address] Monocytes/100 WBC (Bld) 8.2 % Normal 5.0-12.0 [facility] Comment on above: Performed By: #### L [id number] #### [facility]) [address] [place] [address] Neutrophils (Bld) [#/Vol] 5.67 10*3/uL Normal 1.60-7.60 [facility] Comment on above: Performed By: #### L [id number] #### [facility]) [address] [place] [address] Neutrophils/100 WBC (Bld) 65.3 % Normal 40.0-72.0 [facility] Comment on above: Performed By: #### L [id number] #### [facility] [address] [place] [address] NRBC (PER 100 WBCS) BY AUTOMATED COUNT 0.0 % Normal 0 [facility] Comment on above: Performed By: #### L [id number] #### [facility] [address] [place] [address] PLATELETS (10*3/UL) IN BLOOD AUTOMATED COUNT 219 10*3/uL Normal 150-400 [facility] Comment on above: Performed By: #### L [id number] #### [facility] [address] [place] [address] RBC (Bld) [#/Vol] 4.80 10*6/uL Normal 4.20-5.70 [facility] Comment on above: Performed By: #### L [id number] #### [facility] [address] [place] [address] WBC (Bld) [#/Vol] 8.68 10*3/uL Normal 4.00-10.60 [facility] Comment on above: Performed By: #### L [id number] #### [facility] [address] [place] [address] CTA AORTA AND BILATERAL ILIO FEMORAL RUNOFF [...] dilated bladder hydronephrosis Electronically signed: Luis Burroughs. [facility] Comment on above: Order Comment: CTA a bdomen and pelvis with venous phase to evaluate DVT HPon 03-19-2023 HP -- Attestation signed by May Gonzales MD at 03/20/2023 4:05 PM Patient seen with the PA. Has a ride to work extremity swelling and pain which is not significant or severe. He has the pain for about three days and the swelling for only one day. Ultrasound done which of possible partially occluded [place] of thrombosis of the common femoral vein and thrombosis of the femoral vein's. We will obtain CT scan with Tamera Fais to evaluate for iliac vein of thrombosis. If any involvement of the proximal segments, including the Common femoro, or iliacs Vein will consider thrombectomy otherwise will be treated with anticoagulation. [facility] Surgery Service HISTORY AND PHYSICAL History Of Present Illness Arvind Rm is a 68 y.o. male presenting to [facility] as a direct admit from [facility] for extensive right lower extremity DVT. [...] worsened last night/this morning prompting presentation to [place] ED. In ED patient had US of lower extremity finding occlusive thrombus within right posterior tibial vein, peroneal vein, popliteal vein, femoral vein and non-occlusive thrombus within the common femoral vein. Patient was started on heparin and decision was made to transfer to [facility]. Patient assessed on 6AB, endorses pain to right calf, and edema of right lower leg. Patient denies chest pain, shortness of breath, abdominal pain, nausea, vomiting, headache, or changes in vision. Past Medical History He has a past medical history of DVT of leg (deep venous thrombosis) ([facility]) (03/19/2023). Surgical History He has a past [...] lower le (more content not included)... Normal [facility] MAGNESIUMon 03-19-2023 Magnesium [Mass/Vol] 2.0 mg/dL Normal 1.9-2.7 [facility] Comment on above: Performed By: #### L AB103 #### [facility] [address] [place] [address] PHOSPHORUSon 03-19-2023 Magnesium [Mass/Vol] 3.7 mg/dL Normal 2.5-5.0 [facility] Comment on above: Performed By: #### L AB113 #### [facility] [address] [place] [address] PROTIME-INRon 03-19-2023 INR IN PPP BY COAGULATION ASSAY 1.19 High 0.90-1.10 [facility] Comment on above: Result Comment: ACCC [...] 1995;108:231S-246S. Performed By: #### L AB103 #### [facility] [address] [place] [address] PROTHROMBIN TIME (PT) IN PPP BY COAGULATION ASSAY 15.1 Seconds High 12.3-14.8 [facility] Comment on above: Performed By: #### L AB103 #### [facility] [address] [place] [address] Consultation Noteon 01-30-20 Consultation Note [id number] 0CD:127 Normal [facility] US FNA W US GD ADD LESon US FNA W US GD ADD LES Begin Addendum #1 COLLECTED DATE/TIME: 11/11/2022 09:46 EDT Final Diagnosis Report for [facility], [place] (A/B) RIGHT THYROID INFERIOR NODULE: FINE [...] (FNA). 2. Pathology results are pending. Normal [facility] Pathology Noteon 11-10-2022 Pathology Note [id number] 0CD:127 Normal [facility] Outside Colonoscopyon 2022 Outside Colonoscopy [id number] 0CD:127 Normal [facility] US THYROIDon 10-30-2022 US THYROID EXAMINATION: [...] cm left nodules is recommended TI-RADS: The [employer] TI-RADS committee's white paper recommendations for thyroid lesions classified as TR4 (moderately suspicious) are listed below: > 1.0 cm. Follow-up ultrasound in 1, 2, 3, and 5 years. > 1.5 cm. FNA. J. Am Nando Radiol 2017;14:587-595. TI-RADS: The [employer] TI-RADS committee's white paper recommendations for thyroid lesions classified as TR5 (highly suspicious) are listed below: > 0.5 cm. Annual ultrasound follow-up for up to 5 years. > 1.0 cm. FNA. J. Am Nando Radiol 2017;14:587-595. Electronically authenticated by: DIANA DAVID Date: 2022-10-30 14:53 Normal [facility] Consent for Procedure/Surger yon 10-23-2022 Consent for Procedure/Surgery [id number] 0CD:127 Normal [facility] Facesheeton 10-23-2022 Facesheet [id number]#1.0 0CD:127 Normal [facility] Pre-Certification Formon Pre-Certification Form [id number]. 00CD:127 [facility] Ambulatory Visit Summaryon 0 10-22-2022 Ambulatory [...] Family history of colon cancer Hyperlipidemia Normal [facility] Physician Referralon 023 Physician Referral [id number] 0CD:127 [facility] PSA, FREE AND TOTAL RATIOon 08-23-2022 % Free PSA 21.0 % Normal [facility] Comment on above: Result Comment: The [...] men. Performed By: #### P SAFREE #### [facility] [address] [place] [address] [address] Remigio Han Prostate specific Ag [Mass/Vol] 3.1 ng/mL Normal 0.0-4.0 [facility] Comment on above: Result Comment: Cydney VARELA methodology. . According to the [employer], Serum PSA should decrease and [...] disease. Performed By: #### P SAFREE #### [facility] [address] [place] [address] Dr. Remigio Han PSA, Free 0.65 ng/mL Normal N/A [facility] Comment on above: Result Comment: Cydney VARELA methodology. Performed By: #### P SAFREE #### [facility] [address] [place] [address] Dr. Remgiio Han PSA, FREE AND TOTAL RATIOon 02-21-2022 % Free PSA 24.9 % Normal [facility] Comment on above: Result Comment: The [...] men. Performed By: #### P SAFREE #### [facility] [address] [place] [address] Dr. Remigio Han Prostate specific Ag [Mass/Vol] 4.5 ng/mL Critically high 0.0-4.0 [facility] Comment on above: Result Comment: Cydney VARELA methodology. . According to the [employer], Serum PSA should decrease and [...] disease. Performed By: #### P SAFREE #### [facility] [address] [place] [address] Dr. Remigio Han PSA, Free 1.12 ng/mL Normal N/A [facility] Comment on above: Result Comment: Cydney bergman ECLIA methodology. Performed By: #### P SAFREE #### [facility] [address] [place] [address] Dr. Remigio Han INSULINon 02-20-2022 Insulin 14.7 uIU/mL Normal 2.6-24.9 [facility] Comment on above: Performed By: #### I NSULIN #### [facility] [address] [place] [address] Dr. Remigio Han CBC AUTO DIFFon 02-19-2022 BASO # 0.0 103/ul Normal 0.0-0.1 [facility] Comment on above: Performed By: #### C BC #### [facility] [address] [place] [address] Dr. Remigio Han Basophils/100 WBC (Bld) 0.5 % Normal 0.2-2.0 [facility] Comment on above: Performed By: #### C BC #### [facility] [address] [address] [address] Remigio Han EO # 0.1 103/ul Normal 0.0-0.7 [facility] Comment on above: Performed By: #### C BC #### [facility] [address] [place] [address] Dr. Remigio Han Eosinophils/100 WBC (Bld) 1.5 % Normal 0.9-7.0 [facility] Comment on above: Performed By: #### C BC #### [facility] [address] [place] [address] Dr. Remigio Han Erythrocyte distribution width (RBC) [Ratio] 13.0 % Normal 11.0-15.0 [facility] Comment on above: Performed By: #### C BC #### [facility] [address] [place] [address] Dr. Remigio Han Hematocrit (Bld) [Volume fraction] 48.4 % Normal 42.0-54.0 [facility] Comment on above: Performed By: #### C BC #### [facility] [address] [place] [address] Dr. Remigio Han Hemoglobin (Bld) [Mass/Vol] 16.6 g/dL Normal 14.0-18.0 [facility] Comment on above: Performed By: #### C BC #### [facility] [address] [place] [address] Dr. Remigio Han IG # 0.02 10e3/ul Normal 0.00-0.03 [facility] Comment on above: Performed By: #### C BC #### [facility] [address] [place] [address] Dr. Remigio Han IG % 0.4 % Normal 0.0-0.5 [facility] Comment on above: Performed By: #### C BC #### [facility] [address] [place] [address] Dr. Remigio Han LYMPH # 1.6 103/ul Normal 1.2-3.8 [facility] Comment on above: Performed By: #### C BC #### [facility] [address] [place] [address] Dr. Remigio Han Lymphocytes/100 WBC (Bld) 30.0 % Normal 20.5-60.0 [facility] Comment on above: Performed By: #### C BC #### [facility] [address] [place] [address] Dr. Remigio Han MANUAL DIFF REQ NO Normal [facility] Comment on above: Performed By: #### C BC #### [facility] [address] [place] [address] Dr. Remigio Han MCH (RBC) [Entitic mass] 30.2 pg Normal 25.9-34.0 [facility] Comment on above: Performed By: #### C BC #### [facility] [address] [place] [address] Dr. Remigio Han MCHC (RBC) [Mass/Vol] 34.3 g/dL Normal 29.9-35.2 [facility] Comment on above: Performed By: #### C BC #### [facility] [address] [place] [address] Dr. Remigio Han MCV (RBC) [Entitic vol] 88.2 fL Normal 80.0-94.0 [facility] Comment on above: Performed By: #### C BC #### [facility] [address] [place] [address] Dr. Remigio Han MONO # 0.4 103/ul Normal 0.3-0.8 [facility] Comment on above: Performed By: #### C BC #### [facility] [address] [place] [address] Dr. Remigio Han Monocytes/100 WBC (Bld) 8.1 % Normal 1.7-12.0 [facility] Comment on above: Performed By: #### C BC #### [facility] [address] [place] [address] Dr. Remigio Han NEUT # 3.3 103/ul Normal 1.4-6.5 [facility] Comment on above: Performed By: #### C BC #### [facility] [address] [place] [address] Dr. Remigio Han Neutrophils/100 WBC (Bld) 59.5 % Normal 43.0-75.0 [facility] Comment on above: Performed By: #### C BC #### [facility] [address] [place] [address] Dr. Remigio Han Platelet mean volume (Bld) [Entitic vol] 9.8 fL Normal 9.5-13.5 [facility] Comment on above: Performed By: #### C BC #### [facility] [address] [place] [address] Dr. Remigio Han PLT 217 103/ul Normal 150-450 [facility] Comment on above: Performed By: #### C BC #### [facility] [address] [place] [address] Dr. Remigio Han RBC 5.49 106/ul Normal 4.70-6.10 [facility] Comment on above: Performed By: #### C BC #### [facility] [address] [place] [address] Dr. Remigio Han WBC 5.5 103/ul Normal 4.0-11.0 [facility] Comment on above: Performed By: #### C BC #### [facility] [address] [place] [address] Dr. Remigio Han GLYCOHEMOGLOBIN A1Con 2021 ADA RECOMMENDATION SEE BELOW Normal [facility] Comment on above: Result Comment: ADA RECOMMENDED LIMIT 4.0 - 6.0 ADA THERAPEUTIC TARGET < 7.0 ACTION SUGGESTED > 7.0 Performed By: #### A 1C #### [facility] [address] [place] [address] Dr. Remigio Han Glucose [Mass/Vol] 103 mg/dL Normal [facility] Comment on above: Performed By: #### A 1C #### [facility] [address] [place] [address] Dr. Remigio Han HbA1c (Bld) [Mass fraction] 5.2 % Normal 4.5-6.2 [facility] Comment on above: Performed By: #### A 1C #### [facility] [address] [place], [place] [address] Dr. Remigio Han LIPID PROFILEon 02-19-2022 CHOL-HDL RATIO NORM SEE BELOW Normal [facility] Comment on above: Result Comment: 3.3 - 4.4 LOW RISK 4.4 - 7.1 AVERAGE RISK 7.1 - 11.0 MODERATE RISK >11.0 HIGH RISK Performed By: #### L IPID, CMP ####[facility] [address] [id number]. Remigio Han Cholesterol [Mass/Vol] 259 mg/dL Critically high <=200 [facility] Comment on above: Performed By: #### L IPID, CMP ####[facility] [address] [place] [id number]. Remigio Han Cholesterol in HDL [Mass/Vol] 62 mg/dL Critically high 40-60 [facility] Comment on above: Performed By: #### L IPID, CMP ####[facility] [address] [place] [id number]. Remigio Han Cholesterol in LDL [Mass/Vol] 171.8 mg/dL Normal [facility] Comment on above: Performed By: #### L IPID, CMP ####[facility] [address] [place] [id number]. Remigio Han Cholesterol.total/Ch olesterol in HDL [Mass ratio] 4.2 {ratio} Normal [facility] Comment on above: Performed By: #### L IPID, CMP ####[facility] [address] [place] [id number]. Remigio Han HDL NORMAL > or = 60 mg/dl - LO W CARDIOVASCULAR RISK <40 mg/dl - HIGH CARDIOVASCULAR RISK Normal [facility] Comment on above: Performed By: #### L IPID, CMP ####[facility] [address] [id number]. Remigio Han LDL CALC NORMAL SEE BELOW Normal [facility] Comment on above: Result Comment: <100 mg/dl OPTIMAL 100 - 129 mg/dl NEAR OR ABOVE OPTIMAL 130 - 159 mg/dl BORDERLINE HIGH 160 - 189 mg/dl HIGH >190 mg/dl VERY HIGH Performed By: #### L IPID, CMP ####[facility] [address] [place], [place] [address]JxDr. Remigio Han Triglyceride [Mass/Vol] 126 mg/dL Normal <=150 [facility] Comment on above: Performed By: #### L IPID, CMP ####[facility] [address] [place], [place] [address]KbCindi Han VLDL CALC 25.2 mg/dL Normal [facility] Comment on above: Performed By: #### L IPID, CMP ####[facility] [address] [place] [id number] Han PROF 14(COMP METB)on 022 Albumin [Mass/Vol] 3.9 g/dL Normal 3.4-5.0 [facility] Comment on above: Performed By: #### L IPID, CMP #### [facility] [address] [address] [address] Remigio Han Albumin/Globulin [Mass ratio] 1.1 {ratio} Normal [facility] Comment on above: Performed By: #### L IPID, CMP #### [facility] [address] [address] [address] Remigio Han ALP [Catalytic activity/Vol] 65 U/L Normal 46-116 [facility] Comment on above: Performed By: #### L IPID, CMP #### [facility] [address] [address] [address] Remigio Han ALT [Catalytic activity/Vol] 25 U/L Normal 16-63 [facility] Comment on above: Performed By: #### L IPID, CMP #### [facility] [address] [address] [address] Remigio Han Anion gap [Moles/Vol] 13.1 mmol/L Normal [facility] Comment on above: Performed By: #### L IPID, CMP #### [facility] [address] [address] [address] Remigio Han AST [Catalytic activity/Vol] 15 U/L Normal 15-37 [facility] Comment on above: Performed By: #### L IPID, CMP #### [facility] [address] [address] [address] Remigio Han Bilirubin [Mass/Vol] 0.5 mg/dL Normal 0.2-1.0 [facility] Comment on above: Performed By: #### L IPID, CMP #### [facility] [address] [place] [address] Dr. Remigio Han Calcium [Mass/Vol] 9.5 mg/dL Normal 8.5-10.1 [facility] Comment on above: Performed By: #### L IPID, CMP #### [facility] [address] [place] [address] Dr. Remigio Han Chloride [Moles/Vol] 104 mmol/L Normal 98-107 [facility] Comment on above: Performed By: #### L IPID, CMP #### [facility] [address] [place] [address] Dr. Remigio Han CO2 [Moles/Vol] 28.3 mmol/L Normal 21.0-32.0 [facility] Comment on above: Performed By: #### L IPID, CMP #### [facility] [address] [place] [address] Dr. Remigio Han Creatinine [Mass/Vol] 1.05 mg/dL Normal 0.70-1.30 [facility] Comment on above: Performed By: #### L IPID, CMP #### [facility] [address] [place] [address] Dr. Remigio Han EGFR-AF NIGERIAN >60 Normal >=60 [facility] Comment on above: Performed By: #### L IPID, CMP #### [facility] [address] [place] [address] Dr. Remigio Han EGFR-NON AF NIGERIAN >60 Normal >=60 [facility] Comment on above: Performed By: #### L IPID, CMP #### [facility] [address] [place] [address] Dr. Remigio Han Globulin (S) [Mass/Vol] 3.4 g/dL Normal [facility] Comment on above: Performed By: #### L IPID, CMP #### [facility] [address] [address] [address] Remigio Han Glucose [Mass/Vol] 93 mg/dL Normal 74-106 [facility] Comment on above: Performed By: #### L IPID, CMP #### [facility] [address] [place] [address] Dr. Remigio Han Potassium [Moles/Vol] 4.4 mmol/L Normal 3.5-5.1 [facility] Comment on above: Performed By: #### L IPID, CMP #### [facility] [address] [place] [address] Dr. Remigio Han Protein [Mass/Vol] 7.3 g/dL Normal 6.4-8.2 [facility] Comment on above: Performed By: #### L IPID, CMP #### [facility] [address] [place] [address] Dr. Remigio Han Sodium [Moles/Vol] 141 mmol/L Normal 136-145 [facility] Comment on above: Performed By: #### L IPID, CMP #### [facility] [address] [place] [address] Dr. Remigio Han Urea nitrogen [Mass/Vol] 25.0 mg/dL Critically high 7.0-18.0 [facility] Comment on above: Performed By: #### L IPID, CMP #### [facility] [address] [place] [address] Dr. Remigio Han Urea nitrogen/Creatinine [Mass ratio] 23.8 mg/mg Normal [facility] Comment on above: Performed By: #### L IPID, CMP #### [facility] [address] [place] [address] Dr. Remigio Han Vital Signs Date Time Vital Sign Value Performing Clinician Facility 01-19-2024 14:45-0400 Body mass index (BMI) [Ratio] 30.06 kg/m2 HARMONY Guillermo MD Work Phone: [facility] 01-19-2024 14:45-0400 Body weight 83.2 kg HARMONY Guillermo MD Work Phone: [facility] 01-19-2024 14:45-0400 Diastolic blood pressure 75 mm[Hg] HARMONY Guillermo MD Work Phone: [facility] 01-19-2024 14:45-0400 Heart rate 57 /min HARMONY Guillermo MD Work Phone: [facility] 01-19-2024 14:45-0400 Respiratory rate 16 /min HARMONY Guillermo MD Work Phone: [facility] 01-19-2024 14:45-0400 SaO2% (BldA) [Mass fraction] 99 % HARMONY Guillermo MD Work Phone: [facility] 01-19-2024 14:45-0400 Systolic blood pressure 129 mm[Hg] HARMONY Guillermo MD Work Phone: [facility] 08-27-2023 09:37-0500 Body temperature 97.5 [degF] HARMONY Guillermo MD Work Phone: [facility] 08-27-2023 09:37-0500 Body weight 86.4 kg HARMONY Guillermo MD Work Phone: [facility] 08-27-2023 09:37-0500 Diastolic blood pressure 80 mm[Hg] HARMONY Guillermo MD Work Phone: [facility] 08-27-2023 09:37-0500 Heart rate 70 /min HARMONY Guillermo MD Work Phone: [facility] 08-27-2023 09:37-0500 Respiratory rate 16 /min HARMONY Guillermo MD Work Phone: [facility] 08-27-2023 09:37-0500 SaO2% (BldA) [Mass fraction] 98 % HARMONY Guillermo MD Work Phone: [facility] 08-27-2023 09:37-0500 Systolic blood pressure 139 mm[Hg] HARMONY Guillermo MD Work Phone: [facility] 06-17-2023 10:19-0500 Body temperature 96.69 [degF] HARMONY Guillermo MD Work Phone: [facility] 06-17-2023 10:19-0500 Body weight 82.1 kg HARMONY Guillermo MD Work Phone: [facility] 06-17-2023 10:19-0500 Diastolic blood pressure 86 mm[Hg] HARMONY Guillermo MD Work Phone: [facility] 06-17-2023 10:19-0500 Heart rate 70 /min HARMONY Guillermo MD Work Phone: [facility] 06-17-2023 10:19-0500 Respiratory rate 18 /min HARMONY Guillermo MD Work Phone: [facility] 06-17-2023 10:19-0500 SaO2% (BldA) [Mass fraction] 98 % HARMONY Guillermo MD Work Phone: [facility] 06-17-2023 10:19-0500 Systolic blood pressure 143 mm[Hg] HARMONY Guillermo MD Work Phone: [facility] 06-02-2023 08:43-0500 Body temperature 97.39 [degF] [facility] Work Phone: [facility] 06-02-2023 08:43-0500 Diastolic blood pressure 84 mm[Hg] [facility] Work Phone: [facility] 06-02-2023 08:43-0500 Heart rate 78 /min [facility] Work Phone: [facility] 06-02-2023 08:43-0500 Respiratory rate 16 /min [facility] Work Phone: [facility] 06-02-2023 08:43-0500 SaO2% (BldA) [Mass fraction] 99 % [facility] Work Phone: [facility] 06-02-2023 08:43-0500 Systolic blood pressure 132 mm[Hg] [facility] Work Phone: [facility] 06-01-2023 08:41-0500 Body temperature 97 [degF] [facility] Work Phone: [facility] 06-01-2023 08:41-0500 Body weight 80.29 kg [facility] Work Phone: [facility] 06-01-2023 08:41-0500 Diastolic blood pressure 86 mm[Hg] [facility] Work Phone: [facility] 06-01-2023 08:41-0500 Heart rate 68 /min [facility] Work Phone: [facility] 06-01-2023 08:41-0500 Respiratory rate 16 /min [facility] [place] Work Phone: [facility] 06-01-2023 08:41-0500 SaO2% (BldA) [Mass fraction] 99 % [facility] [place] Work Phone: [facility] 06-01-2023 08:41-0500 Systolic blood pressure 133 mm[Hg] [facility] Work Phone: [facility] 04-28-2023 09:47-0400 Diastolic blood pressure 74 mm[Hg] MD Gael Thomas Work Phone: [facility] 04-28-2023 09:47-0400 Heart rate 78 /min MD Gael Thomas Work Phone: [facility] 04-28-2023 09:47-0400 Respiratory rate 20 /min MD Gael Thomas Work Phone: [facility] 04-28-2023 09:47-0400 SaO2% (BldA) [Mass fraction] 97 % MD Gael Thomas Work Phone: [facility] 04-28-2023 09:47-0400 Systolic blood pressure 126 mm[Hg] MD Gael Thomas Work Phone: [facility] 04-28-2023 09:32-0400 Inhaled oxygen flow rate 2 L/min MD Gael Thomas Work Phone: [facility] 04-28-2023 07:07-0400 Body height 166.37 cm MD Gael Thomas Work Phone: [facility] 04-28-2023 07:07-0400 Body weight 80.73 kg MD Gael Thomas Work Phone: [facility] 04-01-2023 12:33-0400 Body height 166.4 cm HARMONY Guillermo MD Work Phone: [facility] 04-01-2023 12:33-0400 Body temperature 98.01 [degF] HARMONY Guillermo MD Work Phone: [facility] 04-01-2023 12:33-0400 Body weight 78.93 kg HARMONY Guillermo MD Work Phone: [facility] 04-01-2023 12:33-0400 Diastolic blood pressure 78 mm[Hg] HARMONY Guillermo MD Work Phone: [facility] 04-01-2023 12:33-0400 Heart rate 86 /min HARMONY Guillermo MD Work Phone: [facility] 04-01-2023 12:33-0400 Respiratory rate 16 /min HARMONY Guillermo MD Work Phone: [facility] 04-01-2023 12:33-0400 SaO2% (BldA) [Mass fraction] 97 % HARMONY Guillermo MD Work Phone: [facility] 04-01-2023 12:33-0400 Systolic blood pressure 115 mm[Hg] HARMONY Guillermo MD Work Phone: [facility] 10-22-2022 15:26-0400 Blood Pressure Location Violeta TINOCO [facility] [place] 10-22-2022 15:26-0400 Diastolic blood pressure 80 mm[Hg] Violeta TINOCO [facility] [place] 10-22-2022 15:26-0400 Heart rate 74 /min Violeta TINOCO [facility] [place] 10-22-2022 15:26-0400 Respiratory rate 16 /min Violeta AMEZCUAL [facility] [place] 10-22-2022 15:26-0400 Systolic blood pressure 122 mm[Hg] Violeta AMEZCUAL [facility] [place] Encounters Encounter Date Encounter Type Care Provider Facility Start: 01-25-2024 Orders Only Azam calderon MD Work Phone: [facility]iation [facility] Start: 01-19-2024 End: 01-19-2024 ambulatory Azam GUILLERMO Facility:[facility] Start: 01-19-2024 End: 01-19-2024 Patient encounter procedure Azam Guillermo MD Work Phone: Radiation Oncology Comment on above: Thyroid cancer (HCC) (Primary Dx) Start: 01-05-2024 End: 01-05-2024 ambulatory [facility] Facility:[facility] Start: 11-18-2023 End: 11-18-2023 ambulatory JOEY MEADOWS Not Available Start: 10-05-2023 Refill Azam calderon MD Work Phone: Radiation Oncology Comment on above: Refill Request Start: 09-04-2023 ambulatory BRIAN MANZO [facility] Start: 08-27-2023 Refill Azam calderon MD Work Phone: Radiation Oncology Comment on above: Med Change Request Start: 08-27-2023 End: 08-27-2023 Patient encounter procedure Azam Guillermo MD Work Phone: Radiation Oncology Comment on above: Thyroid cancer (HCC) (Primary Dx) Start: 08-27-2023 End: 08-27-2023 ambulatory [facility] Facility:[facility] Start: 08-26-2023 End: 08-27-2023 ambulatory LISS PERNE [facility] Start: 08-19-2023 End: 08-19-2023 ambulatory JOEY H TIMMIS Not Available Start: 08-18-2023 End: 08-18-2023 ambulatory GAEL THOMAS Facility:[facility] Start: 07-15-2023 End: 07-15-2023 ambulatory JOEY H TIMMIS Not Available Start: 07-01-2023 End: 07-01-2023 ambulatory JOEY H TIMMIS Not Available Start: 06-17-2023 End: 06-17-2023 ambulatory Azam GUILLERMO Facility:[facility] Start: 06-17-2023 End: 06-17-2023 Patient encounter procedure Azam Guillermo MD Work Phone: Radiation Oncology Comment on above: Thyroid cancer (HCC) (Primary Dx) Start: 06-03-2023 End: 06-03-2023 ambulatory Temo Guillermo Facility:[facility] Start: 06-03-2023 End: 06-03-2023 Patient encounter procedure Azam Guillermo MD Work Phone: Radiation Oncology Comment on above: Thyroid cancer (HCC) (Primary Dx) Start: 06-03-2023 End: 06-03-2023 Patient encounter procedure MD Gael Thomas Work Phone: [facility] Work Phone: Start: 06-03-2023 End: 06-03-2023 ambulatory MD Gael Thomas Work Phone: [facility] Work Phone: Start: 06-02-2023 End: 06-02-2023 ambulatory Azam GUILLERMO Facility:[facility] Start: 06-02-2023 End: 06-02-2023 Patient encounter procedure [facility] Work Phone: Radiation Oncology Comment on above: Thyroid cancer (HCC) (Primary Dx) Start: 06-01-2023 End: 06-01-2023 ambulatory Azam GUILLERMO Facility:[facility] Start: 06-01-2023 End: 06-01-2023 Patient encounter procedure [facility] [place] Work Phone: Radiation Oncology Comment on above: Thyroid cancer (HCC) (Primary Dx) Start: 05-22-2023 ambulatory [facility] Start: 05-08-2023 Refill G Oracio calderon MD Work Phone: Radiation Oncology Comment on above: Refill Request Start: 04-28-2023 End: 04-28-2023 ambulatory Imad Asaad Facility:[facility] Start: 04-28-2023 End: 04-28-2023 Admission to same day surgery center MD Gael Thomas Work Phone: [facility] Work Phone: Start: 04-28-2023 End: 04-28-2023 ambulatory MD Gael Thomas Work Phone: [facility] Work Phone: Start: 04-21-2023 End: 04-21-2023 ambulatory Imad Asaad Other [facility] Other Start: 04-21-2023 Telephone encounter Imad Asaad [facility] Start: 04-09-2023 Patient encounter procedure [facility] Provider [facility] Start: 04-02-2023 Orders Only G Oracio calderon MD Work Phone: Radiation Oncology Start: 04-01-2023 End: 04-01-2023 ambulatory GAEL THOMAS Facility:[facility] Start: 04-01-2023 End: 04-01-2023 Patient encounter procedure [facility] [place] Work Phone: Radiation Oncology Comment on above: Thyroid cancer (HCC) (Primary Dx) Start: 03-20-2023 Evaluation and management of inpatient [facility] Start: 03-19-2023 Evaluation and management of inpatient [facility] Start: 03-19-2023 Evaluation and management of inpatient [place] [facility] Start: 03-19-2023 End: 03-20-2023 Evaluation and management of inpatient KOJO FREITAS [facility] Start: 11-18-2022 ambulatory Violeta TINOCO Facility : [facility] Start: 11-11-2022 End: 11-11-[address] GAEL THOMAS . Facility:[facility] Start: 11-05-2022 End: 11-06-[address] VIOLETA TINOCO . Facility:[facility] Start: 10-30-2022 End: 10-31-[address] GAEL THOMAS . Facility:[facility] Start: 10-22-2022 End: 10-23-2022 ambulatory [facility]ioleta TINOCO [facility] Start: 10-22-2022 End: 10-22-2022 Patient encounter procedure Violeta TINOCO [facility] Start: 09-17-2022 ambulatory Violeta TINOCO [facility] Start: 08-22-2022 End: 08-23-[address] GAEL THOMAS . Facility:[facility] Start: 02-19-2022 End: 02-20-[address] GAEL THOMAS . Facility: Procedures Date Procedure Procedure Detail Performing Clinician Start: 04-28-2023 Colonoscopy MD Gael Thomas Work Phone: Start: 04-01-2023 Assay of thyroglobulin Azam Guillermo MD Work Phone: Start: 02-19-[address] TOBIN THOMAS . Comment on above: Performed By: #### P [facility] ####[place] [address]Dr. Remigio Han Colonoscopy Violeta TINOCO Plan of Treatment Date Care Activity Detail Author Start: 02-19-2027 Prostate Cancer Screening Discussion Prostate Cancer Screening Discussion [facility] Start: 02-19-2027 Prostate specific antigen measurement Prostate Cancer Screening Discussion [facility] Start: 03-20-2026 Diabetes Screening Diabetes Screenin g [facility] Start: 07-18-2024 End: 07-18-2024 Patient encounter procedure 07/18/2024 9:00 AM EST Office Visit Radiation Oncology [address] [place] [address] Azam Guillermo MD [address] [place] [address] followup Needds this due to Xmas* Radiation Oncology Comment on above: followup Needds th is due to Xmas* Start: 07-08-2024 End: 10-07-2024 THYROGLOBULIN BY LC-MS/MS, SERUM OR PLASMA, FOR THYROGLOBULIN ANTIBODY INTERFERENCE THYROGLOBULIN BY LC-MS/MS, SERUM OR PLASMA, FOR THYROGLOBULIN ANTIBODY INTERFERENCE Lab Routine Thyroid cancer (HCC) Expected: 07/08/2024, Expires: 10/07/2024 [facility] Work Phone: Comment on above: Expected: 07/08/2024 , Expires: 10/07/2024 Start: 07-08-2024 End: 07-08-2024 Patient encounter procedure 07/08/2024 9:00 AM EST Office Visit [facility] [address] [place] [address] [place] [address] lab- Thyroglobulin ONLY [facility] Comment on above: lab- Thyroglobulin O NLY Start: 07-05-2024 End: 07-05-2024 Patient encounter procedure 07/05/2024 9:00 AM EST Office Visit Radiation Oncology [address] [place] [address] Thyrogen Radiation Oncology Comment on above: Thyrogen Start: 07-04-2024 End: 10-03-2024 THYROGLOBULIN BY LC-MS/MS, SERUM OR PLASMA, FOR THYROGLOBULIN ANTIBODY INTERFERENCE THYROGLOBULIN BY LC-MS/MS, SERUM OR PLASMA, FOR THYROGLOBULIN ANTIBODY INTERFERENCE Lab Routine Thyroid cancer (HCC) Expected: 07/04/2024, Expires: 10/03/2024 [facility] Comment on above: Expected: 07/04/2024 , Expires: 10/03/2024 Start: 07-04-2024 End: 10-03-2024 Thyrotropin [Units/volume] in Serum or Plasma THYROID STIMULATING HORMONE Lab Routine Thyroid cancer (HCC) Expected: 07/04/2024, Expires: 10/03/2024 [facility] Comment on above: Expected: 07/04/2024 , Expires: 10/03/2024 Start: 07-04-2024 End: 10-03-2024 Thyroxine (T4) [Mass/volume] in Serum or Plasma T4/THYROXINE Lab Routine Thyroid cancer (HCC) Expected: 07/04/2024, Expires: 10/03/2024 [facility] Comment on above: Expected: 07/04/2024 , Expires: 10/03/2024 Start: 07-04-2024 End: 07-04-2024 Patient encounter procedure [facility] Comment on above: Draw T4, Tsh, and Th yroglobulin level Prior to injection Thyrogen Start: 03-27-2024 Influenza vaccination Influenz a Vaccine (Season Ended) [facility] Start: 12-26-2023 End: 03-26-2024 THYROGLOBULIN BY LC-MS/MS, SERUM OR PLASMA, FOR THYROGLOBULIN ANTIBODY INTERFERENCE THYROGLOBULIN BY LC-MS/MS, SERUM OR PLASMA, FOR THYROGLOBULIN ANTIBODY INTERFERENCE Lab Routine Thyroid cancer (HCC) Expected: 12/26/2023, Expires: 03/26/2024 [facility] Work Phone: Comment on above: Expected: 12/26/2023 , Expires: 03/26/2024 Start: 12-26-2023 End: 03-26-2024 Thyrotropin [Units/volume] in Serum or Plasma TSH BLD Lab Routine Thyroid cancer (HCC) Expected: 12/26/2023, Expires: 03/26/2024 [facility] Work Phone: Comment on above: Expected: 12/26/2023 , Expires: 03/26/2024 Start: 12-26-2023 End: 03-26-2024 Thyroxine (T4) [Mass/volume] in Serum or Plasma T4/THYROXINE BLOOD Lab Routine Thyroid cancer (HCC) Expected: 12/26/2023, Expires: 03/26/2024 [facility] Work Phone: Comment on above: Expected: 12/26/2023 , Expires: 03/26/2024 Start: 08-27-2023 End: 11-26-2023 Thyrotropin [Units/volume] in Serum or Plasma TSH BLD Lab Routine Thyroid cancer (HCC) Expected: 08/27/2023 (Approximate), Expires: 11/26/2023 [facility] Work Phone: Comment on above: Expected: 08/27/2023 (Approximate), Expires: 11/26/2023 Start: 08-27-2023 End: 11-26-2023 Thyroxine (T4) [Mass/volume] in Serum or Plasma T4/THYROXINE BLOOD Lab Routine Thyroid cancer (HCC) Expected: 08/27/2023 (Approximate), Expires: 11/26/2023 [facility] Work Phone: Comment on above: Expected: 08/27/2023 (Approximate), Expires: 11/26/2023 Start: 07-27-2023 Advance Directive Discussion Advance Directive Discussion [facility] Start: 07-27-2023 Behavioral Health Screening Behavioral Health Screening [facility] Start: 07-27-2023 Depression Assessment Depression Ass essment [facility] Start: 06-10-2023 Radionuclide localization of tumor, whole body NM thyroid ca whole body [facility] Start: 06-03-2023 Oral radionuclide therapy NM tx radpharm oral [facility] Start: 04-28-2023 [facility] Start: 04-01-2023 End: 06-01-2023 THYROGLOBULIN BY MASS SPECTROMETRY THYROGLOBULIN BY MASS SPECTROMETRY Lab Routine Thyroid cancer (HCC) Expected: 04/01/2023, Expires: 06/01/2023 [facility] Work Phone: Comment on above: Expected: 04/01/2023 , Expires: 06/01/2023 Start: 03-27-2023 Covid-19 Vaccine () Covid-19 Vaccine () [facility] Start: 03-27-2023 Influenza vaccination [facility] Start: 07-27-2022 ADVANCE DIRECTIVE DISCUSSION ADVANCE DIRECTIVE DISCUSSION [facility] Start: 07-27-2022 DEPRESSION ASSESSMENT DEPRESSION ASS ESSMENT [facility] Start: 05-19-2022 COVID-19 VACCINE (5 - Pfizer series) COVID-19 VACCINE (5 - Pfizer series) [facility] Start: 2020 Pneumococcal Vaccine : 65+ (1 - PCV) Pneumococcal Vaccine: 65+ (1 - PCV) [facility] Start: 2020 Pneumococcal Vaccine : 65+ (1 of 1 - PCV) Pneumococcal Vaccine: 65+ (1 of 1 - PCV) [facility] Start: 2020 PNEUMOCOCCAL: 65+ (1 - PCV) PNEUMOCOCCAL: 65+ (1 - PCV) [facility] Start: 2015 RSV Vaccine (1 - 1-d ose 60+ series) RSV Vaccine (1 - 1-dose 60+ series) [facility] Start: 2010 PROSTATE CANCER SCREENING DISCUSSION PROSTATE CANCER SCREENING DISCUSSION [facility] Start: 2005 SHINGRIX VACCINE (1 of 2) SHINGRIX VACCINE (1 of 2) [facility] Start: 2000 COLOGUARD (FIT-DNA) COLOGUARD (FIT-D NA) [facility] Start: 2000 Colonoscopy COLONOSCOPY [facility] Start: 2000 COLORECTAL CANCER SCREENING COLORECTAL CANCER SCREENING [facility] Start: [address] COLONOGRAPHY [facility] Start: 2000 DIABETES SCREEN DIABETES SCREEN [facility] Start: 2000 Diabetes Screening Diabetes Screenin g [facility] Start: 2000 FECAL OCCULT BLOOD FECAL OCCULT BLOO D [facility] Start: 2000 Screening for malign ant neoplasm of colon [facility] Start: 2000 SIGMOIDOSCOPY SIGMOIDOSCOPY [facility] Start: 1990 Lipid 1996 panel - S john or Plasma Lipid Screening [facility] Start: 1990 Lipid panel Lipid Screening [facility] Start: 1990 LIPID SCREEN LIPID SCREEN [facility] Start: 1974 Urine microalbumin profile [facility] Start: 1973 HEPATITIS C SCREENING HEPATITIS C [facility] Start: 1973 Hepatitis C screening Hepatitis C [facility] Start: 1955 ABDOMINAL AORTIC ANEURYSM SCREENING ABDOMINAL AORTIC ANEURYSM SCREENING [facility] Start: 1955 Abdominal aortic aneurysm screening Abdominal Aortic Aneurysm Screening [facility] Patient Education Colon polyps Diverticulosis Hemorrhoids (DC) [facility] Work Phone: End: 04-30-2024 Rp therapy oral administration NM THERAPY THYROID I-131 Radiology Routine Thyroid cancer (HCC) 1 Occurrences starting 04/01/2023 until 04/30/2024 [facility] Work Phone: Comment on above: 1 Occurrences starti ng 04/01/2023 until 04/30/20[facility] Immunizations Immunization Date Immunization Notes Care Provider Fa cility 03-24-2022 SARS-CoV-2 mRNA (hpknfafkrqz-aeca-thaw ose) vaccine Violeta TINOCO [facility] 10-16-2021 SARS-CoV-2 mRNA (yqumsdtzonn-hckt-ulef ose) vaccine Violeta TINOCO [facility] [place] 04-17-2021 SARS-CoV-2 (COVID-19 ) mRNA BNT-162b2 vax Violeta AMEZCUAL [facility] [place] 03-27-2021 SARS-CoV-2 (COVID-19 ) mRNA BNT-162b2 vax Violeta AMEZCUAL [facility] NEGATED: Highlighted row has not occurred!10-22-2022 influenza virus vaccine, unspecified formulation Violeta TINOCO [facility] [place] Payers Date Payer Category Payer Self-pay 2020 Medicare [employer] MEDICARE [employer] MEDICARE PPO [id number] 2020-Present [phone] [address] [address] [place] [address] PPO [id number] 1959 Medicare [id number] 1955 Unknown [id number] 1955 Unknown [id number] 1955 Unknown [id number] [id number] 1955 Unknown [id number] [id number] 1955 Unknown [id number] [id number] 1955 Unknown [id number] [id number] 1955 Unknown [id number] [id number] 1955 Unknown [id number] [id number] 1955 Unknown [id number] [id number] 1955 Unknown [id number] 2.16.840.1.240442.3.579.2.125 9 1955 Unknown [id number] 2.16.840.1.551545.3.579.2.125 9 1955 Unknown [id number] 2.16.840.1.069049.3.579.2.125 9 1955 Unknown [id number] 2.16.840.1.642556.3.579.2.125 9 Unknown [id number] [id number] Unknown [id number] Social History Date Type Detail Facility Start: 10-22-2022 End: 04-01-2023 Tobacco smoking status Ex-smoker (finding) [facility] Tobacco smoking status Never [facility] Start: 04-01-2023 End: 01-19-2024 Sex Assigned At Male Chucky Lopez [facility] End: 07-27-1982 History of tobacco use Current smoker [facility] End: 07-27-1982 History of tobacco use Cigarette Smoker [facility] Start: 04-01-2023 End: 01-19-2024 Cigarettes smoked current (pack per day) - Reported 0.5 [facility] Start: 04-01-2023 Tobacco use and exposure Smokeless tobacco non-user [facility] Start: 04-01-2023 End: 01-19-2024 Alcohol intake Ex-drinker (finding) [facility] Start: 1955 Sex Assigned At Not on file [facility] Start: 1955 Sex Assigned At Male Yamilka [facility] Goals Date Patient Goal Desired Activity /State Functional Status Date Assessment Result Facility 10-22-2022 Functional Status N/A [facility] Clinical Notes 10-22-2022 to 01-19-2024 Azam Guillermo MD - 01/19/2024 3:00 PM EDTTjulio Hernandez - Aurea Chu RN - 10/05/2023 2:53 PM Azam Huang MD - 08/27/2023 9:42 AM EST Note Date & Type Note Facility 01-19-2024 History of Presen t illness Narrative Radiation [...] 74.3 mCi. HPI: Patient is doing well. Denies any palpitations feeling of jitteriness chest pain or other issues. No dysphagia. Denies neck pain or other issues. RADIOLOGY: Post I-131 whole-body scan 06/10/2023: Uptake within an area of thyroid bed only. No suspected metastatic disease. LABORATORY: Latest Reference Range & Units 04/01/23 13:58 06/03/23 10:39 08/18/23 09:27 01/05/24 08:45 Thyroglobulin Ab, Serum <4.0 IU/mL <0.9 Thyroglobulin, Serum 1.6 - 50.0 ng/mL 2.8 Thyroglobulin, LC-MS/MS 1.3 - 31.8 ng/mL 1.7 <0.5 (L) T4 5.5 - 10.2 ug/dL 7.1 6.9 TSH 0.270 - 4.200 mIU/L 0.535 2.390 (L): Data is abnormally low FOCUSED ROS: Dysphagia: No Mucositis: No Voice Changes:Yes improved/no lymph resolved Fatigue: No Nausea: No Vomitting: No Pain: No Taste: No Weight loss: No ALLERGIES Allergen Reactions Clindamycin Rash MEDICATIONS: levothyroxine (SYNTHROID) 125 mcg tablet Take 1 tablet by mouth once daily. apixaban (ELIQUIS) 5 mg tab(s) Take 5 mg by mouth every 12 hours. famotidine (PEPCID) 20 mg tablet Take 1 tablet by mouth daily at bedtime. omeprazole (PRILOSEC) 40 mg capsule Take 40 mg by mouth. PAST MEDICAL HISTORY Diagnosis Date DVT (deep [...] Types: Cigarettes Quit date: 1982 Years since quittin.5 Smokeless tobacco: Never Substance Use Topics Alcohol [...] As noted in HPI PHYSICAL EXAM: VS: There were no vitals taken for this visit. KPS: 100 General Appearance: Alert and oriented. [...] therapy on 06/03/2023, 74.3 mCi. Doing well. Thyroglobulin undetectable. TSH May need to be further suppressed although overall risk lower for this patient. For the time being continue current Synthroid dose of 125 mcg daily, continue surveillance of thyroid labs. Recommend Thyrogen stimulated thyroglobulin in 4 to 6 months. Signed by: Azam Guillermo MD cc: Gael Thomas [address] [place] [phone] Joey Meadows MD [address] [place] [address] documented in this encounter [facility] 01-19-2024 Note HNO ID: [id number] Author: Azam GUILLERMO MD Service: ? Author Type: Physician Type: Progress Notes Filed: 01/29/2024 11:01 Note Text: Radiation Oncology -follow-up note PATIENT [...] 74.3 mCi. HPI: Patient is doing well. Denies any palpitations feeling of jitteriness chest pain or other issues. No dysphagia. Denies neck pain or other issues. RADIOLOGY: Post I-131 whole-body scan 06/10/2023: Uptake within an area of thyroid bed only. No suspected metastatic disease. LABORATORY: Latest Reference Range AND Units 04/01/23 13:58 11/08/23 10:39 08/18/23 09:27 01/05/24 08:45 Thyroglobulin Ab, Serum <4.0 IU/mL <0.9 Thyroglobulin, Serum 1.6 - 50.0 ng/mL 2.8 Thyroglobulin, LC-MS/MS 1.3 - 31.8 ng/mL 1.7 <0.5 (L) T4 5.5 - 10.2 ug/dL 7.1 6.9 TSH 0.270 - 4.200 mIU/L 0.535 2.390 (L): Data is abnormally low FOCUSED ROS: Dysphagia: No Mucositis: No Voice Changes:Yes improved/no lymph resolved Fatigue: No Nausea: No Vomitting: No Pain: No Taste: No Weight loss: No ALLERGIES Allergen Reactions Clindamycin Rash MEDICATIONS: levothyroxine (SYNTHROID) 125 mcg tablet Take 1 tablet by mouth once daily. apixaban (ELIQUIS) 5 mg tab(s) Take 5 mg by mouth every 12 hours. famotidine (PEPCID) 20 mg tablet Take 1 tablet by mouth daily at bedtime. omeprazole (PRILOSEC) 40 mg capsule Take 40 mg by mouth. PAST MEDICAL HISTORY Diagnosis Date DVT (deep [...] Types: Cigarettes Quit date: 1982 Years since quittin.5 Smokeless tobacco: Never Substance Use Topics Alcohol [...] As noted in HPI PHYSICAL EXAM: VS: There were no vitals taken for this visit. KPS: 100 General Appearance: Alert and oriented. [...] therapy on 06/03/2023, 74.3 mCi. Doing well. Thyroglobulin undetectable. TSH May need to be further suppressed although overall risk lower for this patient. For the time being continue current Synthroid dose of 125 mcg daily, continue surveillance of thyroid labs. Recommend Thyrogen stimulated thyroglobulin in 4 to 6 months. Signed by: Azam Guillermo MD cc: Gael Thomas [address] [place] [phone] Joey Meadows MD [address] [place] [id number] [place] [address] 10-05-2023 Miscellaneous Notes Please review and sign if agreeable. Aurea Chu RN documented in this encounter [facility] 09-04-2023 Note Subjective Patient ID: Arvind Rm [...] past 36 hour(s)). No follow-ups on file. [facility] 08-27-2023 Note HNO ID: [id number] Author: Azam GUILLERMO MD Service: ? Author [...] by: Azam Guillermo MD cc: Gael Thomas [address] [place] [phone] Joey Meadows MD [address] [place] [address] [facility] 08-27-2023 History of Presen t illness Narrative [...] by: Azam Guillermo MD cc: Gael Thomas [address] [place] [phone] Joey Meadows MD [address] [place] [id number] documented in this encounter [facility] 06-17-2023 Note HNO ID: [id number] Author: Azam Guillermo MD Service: ? Author [...] by: Azam Guillermo MD cc: Gael Thomas [address] [place] [phone] Joey Meadows MD [address] [place] [address] 06-17-2023 History of Presen t illness Narrative [...] by: Azam Guillermo MD cc: Gael Thomas [address] [place] [phone] Joey Meadows MD [address] [place] [id number] documented in this encounter [facility] 06-03-2023 Note HNO ID: [id number] Author: Azam Guillermo MD Service: ? Author Type: Physician Type: Progress Notes Filed: 06/04/2023 1:08 PM Note Text: PATIENT NAME: Arvind Rm PATIENT : 1955 See note at [facility] 06-03-2023 History of Presen t illness Narrative PATIENT NAME: Arvind Rm PATIENT : 1955 See note at [facility] documented in this encounter [facility] 05-22-2023 Note Subjective Patient ID: Arvind Rm [...] past 36 hour(s)). No follow-ups on file. [facility] 05-22-2023 Note Subjective Patient ID: Arvind Rm is a 68 y.o. male who presents for No chief complaint on file.. HPI 68 y.o. male with history of RLE DVT, seen at [facility] on 03/19. Patient has no [...] past 36 hour(s)). No follow-ups on file. [facility] 04-28-2023 History and physical note Note Date/Time April 28, 2023 8: 05am [facility] [address] [place] [address] Gastroenterology H&P Signed Patient: Arvind Rm MR#: [id number] : 1955 Acct:[id number] Age/Sex: 68 / M Adm Date: 3 Loc: Room: Type: [facility] Attending Dr: Modesto Guzmán MD Copies to: [...] <Electronically signed by Modesto Guzmán MD> 04/28/[address] [facility] Work Phone: [phone] Procedure [facility]09-06-2023 Nurse Note* Sherie Reich LPN - 04/01/2023 3:12 PM EDT Arvind Mohamud Alysapuneetafua presents in office today for: Lab Draw during Office Visit . Ordering Provider: Oracio Guillermo M.D. Test (s) ordered: Thyroglobulin level Method for obtaining blood: Phlebotomy was performed, accessing right antecubital vein. Needle removed intact. Dressing secured. Patient denies discomfort, dizziness, light-headedness or weakness and left the department without assist. Sherie Reich LPN [facility] NoteHNO ID: [id number] Author: Azam Guillermo MD Service: ? Author [...] soft tissues with c (more content not included)...[facility] 04-01-2023 History of Present illness Narrative* [...] by: Azam Guillermo MD cc: Gael Thomas [facility] [place] [address] Joey Meadows MD [address] [place] [id number] [facility]23 Note03/20/23 1246 Admission Assessment Questions Verify insurance [...] He has no history of HHC or SNF.[facility]08-25-2023 Note Attestation signed by May Gonzales MD at 03/20/2023 4:02 PM Review the CAT scan that was done for the veins. 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 With this, patient can be treated only with anticoagulation with no need for any operative intervention. [facility] Vascular Surgery DAILY PROGRESS NOTE Subjective No [...] Vascular Surgery Service General Surgery Resident, PGY-1 03/20/23[facility]04[facility]23 NoteOPERATIVE NOTE OPERATION DATE: 11/05/2022 PREOPERATIVE [...] within one year. CC: Gael Thomas M.D.[id number] NoteChief Complaint consultation for screening colonoscopy HPI [...] inactivated - Not Given Patient Refuses SARSCoV2 mRNA(yvjrfcneg-cpji-hqwtzl) vac 03/24/2022 Recorded SARSCoV2 mRNA(xxfbaxckq-sebo-koxcqw) vac 10/16/2021 Recorded SARS-CoV-2 (COVID-19) mRNA BNT-162b2 vax 04/17/2021 Recorded SARS-CoV-2 (COVID-19) mRNA BNT-162b2 vax 03/27/2021 [facility] HospitalComment on above:Result Comment: Electronically Signed By: Violeta TINOCO MD\Date and Time Signed: 10/22/22 16:00 EDTEvaluation + Plan note No data available for this section General Surgery [place] evaluation note* Diagnosis Thyroid cancer (HCC)- Primary Malignant neoplasm of thyroid gland [facility] Diagnosis Thyroid cancer (HCC)- Primary Malignant neoplasm of thyroid gland documented in this encounter [facility] noteNo InformationNort Urlist Other evaluation noteNo assessment information available [facility] Work Phone: evaluation note* Diagnosis Thyroid cancer (HCC)- Primary Malignant neoplasm of thyroid gland [facility]* Diagnosis Thyroid cancer (HCC)- Primary Malignant neoplasm of thyroid gland [facility]* Diagnosis Thyroid cancer (HCC)- Primary Malignant neoplasm of thyroid gland [facility]* Diagnosis Thyroid cancer (HCC)- Primary Malignant neoplasm of thyroid gland [facility]* Diagnosis Thyroid cancer (HCC)- Primary Malignant neoplasm of thyroid gland [facility]* Diagnosis Thyroid cancer (HCC)- Primary Malignant neoplasm of thyroid gland documented in this encounter [facility] general Narrative - Reported* Type Description Date Surgical History thyroidectomy [place] [facility] Discharge instructions No data available for this section General Surgery [place] [facility] Discharge instructions Additional Instructions DISCHARGE INSTRUCTIONS [...] years. -Follow up with PCP. -Office number [phone]. [facility] Work Phone: Progress note No data available for this section General Surgery [place] Reason for referral (narrative)* Diagnostic Procedure Only (Routine) - Pending Review Specialty Diagnoses / Procedures Referred By Amalia t Referred To Contact MOLECULAR & FUNCTIONAL IMAGING Diagnoses Thyroid cancer (HCC) Procedures NM THERAPY THYROID I-131 RP THERAPY ORAL ADMINISTRATION Azam Guillermo MD [address] [place] [address] [place] [address] Molecular & Functional Imaging [address] [place] [id number] Referral ID Status Reason Start Date Expiration Date Visits Requested Visits Authorized [id number] Pending Review Auto-Generat ed Referral 04/01/2023 04/30/2024 1 1 [facility] Summary Purpose Family History No Family History [...] team informatio n (unrecognized section and content) Seat Coverer Relationship Specialty Start Date End Date Gael Thomas MD [address] [place] [address] PCP - General Family Medicine 04/01/23 Seat Coverer Relationship Specialty Start Date End Date Gael Thomas MD [address] [place] [address] PCP - General Family Medicine 04/01/23 Seat Coverer Relationship Specialty Start Date End Date Gael Thomas MD [address] [place] [address] PCP - General Family Medicine 04/01/23 Team Status: Active Member Role Status Dates Gael Tohmas MD Primary Care Provider Active Team Status: Inactive Member Role Status Dates Modesto Guzmán MD Attending Provider Active Gael Thomas MD Primary Care Provider Active Seat Coverer Relationship Specialty Start Date End Date Gael Thomas MD [address] [place] [phone] PCP - General Family Medicine 04/01/23 Seat Coverer Relationship Specialty Start Date End Date Gael Thomas MD [address] [phone] PCP - General Family Medicine 04/01/23 Team Status: Inactive Member Role Status Dates Temo Guillermo MD Attending Provider Active Gael Thomas MD Primary Care Provider Active Seat Coverer Relationship Specialty Start Date End Date Gael Thomas MD [address] [phone] PCP - General Family Medicine 04/01/23 Seat Coverer Relationship Specialty Start Date End Date Gael Thomas MD [address] [phone] PCP - General Family Medicine 04/01/23 Seat Coverer Relationship Specialty Start Date End Date Gael Thomas MD [address] [place] [address] PCP - General Family Medicine 04/01/23 Seat Coverer Relationship Specialty Start Date End Date Gael Thomas MD [address] [place] [phone] PCP - General Family Medicine 04/01/23 Seat Coverer Relationship Specialty Start Date End Date Gael Thomas MD [address] [place] [address] PCP - General Family Medicine 04/01/23 (unrecognized sect ion and content) No Status Records FoundNo Status Records FoundNo Status Records FoundNo Status Records FoundNo Status Records FoundNo Status Records Found INFORMATION SOURCE (unrecogn ized section and content) DATE CREATED AUTHOR 11/15/2022 [facility] DATE CREATED AUTHOR AUTHOR'S ORGANIZ ATION 01/29/2023 [facility] DATE CREATED AUTHOR AUTHOR'S ORGANIZ ATION 08/08/2023 [facility] DATE CREATED AUTHOR AUTHOR'S ORGANIZ ATION 09/09/2023 [facility] DATE CREATED AUTHOR AUTHOR'S ORGANIZ ATION 11/19/2023 [facility] dical [facility] EPIC DATE CREATED AUTHOR AUTHOR'S ORGANIZ ATION 01/30/2024 [facility] Source Comments (unrecognize d section and content) In the event this informatio n is protected by the Federal Confidentiality of Alcohol and Drug Abuse Patient Records regulations: The Federal rules restrict any use of the information to criminally investigate or prosecute any alcohol or drug abuse patient.[facility] the event this information is protected by the Federal Confidentiality of Alcohol and Drug Abuse Patient Records regulations: The Federal rules restrict any use of the information to criminally investigate or prosecute any alcohol or drug abuse patient.[facility] GeneralIn the event this information is protected by the Federal Confidentiality of Alcohol and Drug Abuse Patient Records regulations: The Federal rules restrict any use of the information to criminally investigate or prosecute any alcohol or drug abuse patient.[facility] GeneralIn the event this information is protected by the Federal Confidentiality of Alcohol and Drug Abuse Patient Records regulations: The Federal rules restrict any use of the information to criminally investigate or prosecute any alcohol or drug abuse patient.[facility] GeneralIn the event this information is protected by the Federal Confidentiality of Alcohol and Drug Abuse Patient Records regulations: The Federal rules restrict any use of the information to criminally investigate or prosecute any alcohol or drug abuse patient.[facility] GeneralIn the event this information is protected by the Federal Confidentiality of Alcohol and Drug Abuse Patient Records regulations: The Federal rules restrict any use of the information to criminally investigate or prosecute any alcohol or drug abuse patient.[facility] GeneralIn the event this information is protected by the Federal Confidentiality of Alcohol and Drug Abuse Patient Records regulations: The Federal rules restrict any use of the information to criminally investigate or prosecute any alcohol or drug abuse patient.[facility] GeneralIn the event this information is protected by the Federal Confidentiality of Alcohol and Drug Abuse Patient Records regulations: The Federal rules restrict any use of the information to criminally investigate or prosecute any alcohol or drug abuse patient.[facility] GeneralIn the event this information is protected by the Federal Confidentiality of Alcohol and Drug Abuse Patient Records regulations: The Federal rules restrict any use of the information to criminally investigate or prosecute any alcohol or drug abuse patient.[facility] General[facility] the event this information is protected by the Federal Confidentiality of Alcohol and Drug Abuse Patient Records regulations: The Federal rules restrict any use of the information to criminally investigate or prosecute any alcohol or drug abuse patient.[facility] GeneralIn the event this information is protected by the Federal Confidentiality of Alcohol and Drug Abuse Patient Records regulations: The Federal rules restrict any use of the information to criminally investigate or prosecute any alcohol or drug abuse patient.[facility] GeneralIn the event this information is protected by the Federal Confidentiality of Alcohol and Drug Abuse Patient Records regulations: The Federal rules restrict any use of the information to criminally investigate or prosecute any alcohol or drug abuse patient.[facility] GeneralIn the event this information is protected by the Federal Confidentiality of Alcohol and Drug Abuse Patient Records regulations: The Federal rules restrict any use of the information to criminally investigate or prosecute any alcohol or drug abuse patient.[facility] GeneralIn the event this information is protected by the Federal Confidentiality of Alcohol and Drug Abuse Patient Records regulations: The Federal rules restrict any use of the information to criminally investigate or prosecute any alcohol or drug abuse patient.[facility] GeneralIn the event this information is protected by the Federal Confidentiality of Alcohol and Drug Abuse Patient Records regulations: The Federal rules restrict any use of the information to criminally investigate or prosecute any alcohol or drug abuse patient.[facility] GeneralIn the event this information is protected by the Federal Confidentiality of Alcohol and Drug Abuse Patient Records regulations: The Federal rules restrict any use of the information to criminally investigate or prosecute any alcohol or drug abuse patient.[facility] Reason for Visit (unrecogniz ed section and content) Reason Comments Consult Reason Onset Date Comments Refill Request 05/08/2023 Reason Comments Thyroid Cancer Specialty Diagnoses / Procedures Referred By Contac t Referred To Contact Diagnoses Thyroid cancer (HCC) Procedures THYROTROPIN INJECTION Azam Guillermo MD [address] [place] [address] [place] [address] [facility] [address] Referral ID Status Reason Start Date Expiration Date V isits Requested Visits Authorized [id number] Authorized 04/02/2023 07/26/2023 99 99 Reason Comments [...] BE BASED ON THE PRIMARY CLINICAL RECORDS. [employer] [facility]. provides no warranty or guarantee of the accuracy or completeness of information in this document.
[2024-02-17 08:23] LABS: Chol HDL Ratio 2.7; Cholesterol 194 mg/dL (<=200); HDL Cholesterol 72 mg/dL (40-60); Triglycerides 125 mg/dL (<=150)
== END 2024-02-17 06:45 | disposition home or self-care (01) ==
LOC: LAB 06:45
PROVIDERS: PCP Family Medicine; Visit Provider Family Medicine
DX: E78.00 Pure hypercholesterolemia, unspecified (principal)
CPT/HCPCS: 36415; 80061

== ENCOUNTER 2024-06-28 06:39 | Outpatient (OUT) | payer MEDICARE, SELFPAY ==
--- OUTSIDE RECORDS SUMMARY | 2024-06-28 06:42 | XMS_ITS | CCD ---
Author Organization [facility] Team Providers Care Dish Maker Name Role Phone Gael Thomas Primary Care [...] Unavailable HOY ., DR MAYO Consulting Unavailable [place], DR DIANA Gonsalez Consulting Unavailable HOY ., DR MAYO Admitting Unavailable HOY ., DR MAYO Attending Unavailable HOY ., DR MAYO Primary Care Unavailable HOY ., DR MAYO Consulting Unavailable NILLVioleta Attending Unavailable NILL, Violeta Albert Attending Unavailable HoyGael Referring Unavailable NILL, Violeta R Attending Unavailable NILL, Violeta Albert Referring Unavailable NILL, Violeta Albert Attending Unavailable Hoy Gael CHIN Primary Care Provider [phone] Modesto Guzmán Unavailable MD Modesto Guzmán Attending Provider [phone] MD Gael Thomas Primary Care Provider [phone] MD Modesto Guzmán Attending Provider MD Gael Thomas Primary Care Provider [phone] MD Temo Guillermo Attending Provider Asaad, Imad [...] Unavailable Gael Thomas MD Primary Care Provider [phone] JOEY MEADOWS Attending Unavailable JOEY MEADOWS Attending Unavailable JOEY MEADOWS Attending Unavailable JOEY MEADOWS Attending Unavailable Gael Thomas MD Primary Care Provider [phone] HOY, GAEL M Primary Care Unavailable [...] source) Clindamycin; Translations: [CLINDAMYCIN] Drug Allergy 3 [facility] Repository (1 source) No Known Medication Allergies; Translations: [No Known Medication Allergies] Propensity to adverse reactions (disorder) [facility] Repository (19 sources) Clindamycin; Translations: [CLINDAMYCIN] Drug Allergy 3 Rash [facility] (1 source) Clindamycin Drug Allergy 3 [facility] Repository (1 source) Shellfish; Translations: [SHELLFISH DERIVED] Propensity to adverse reactions to drug (disorder) 3 [facility] Repository Medications Current Medications Medication [...] 40 mg by mouth. polyethylene glycol 3350 729473 mg / potassium chloride 2970 mg / sodium bicarbonate 6740 mg / sodium chloride 5860 mg / sodium sulfate 47634 mg powder for oral solution (1 source) [...] CNOV Office Visit (RADTSA ) ARVIND RM ([id number]) 1955 M Date Time Provider Department 01/19/24 [...] by: Azam Guillermo MD cc: Gael Thomas [address] [place] [phone] Joey Meadows MD [address] [facility] [address] [facility] [address] Allergies As of Date: 01/19/2024 Noted Allergy Reaction CLINDAMYCIN 04/01/2023 2 - Rash Date Reviewed: 01/19/2024 Reviewed by: Sherie Reich LPN - Fully Assessed Reason for Visit: Thyroid Cancer [879] Primary Visit Diagnosis:Thyroid cancer (HCC) [C73] Order(s):THYROGLOBULIN BY LC-MS/MS, SERUM OR PLASMA, FOR THYROGLOBULIN ANTIBODY INTERFERENCE [SQTGMSMS] Order #: [id number] FUTURE THYROGLOBULIN BY LC-MS/MS, SERUM OR PLASMA, FOR THYROGLOBULIN ANTIBODY INTERFERENCE [SQTGMSMS] Order #: [id number] FUTURE T4/THYROXINE [SQT4] Order #: [id number] FUTURE THYROID STIMULATING HORMONE [SQTSH] Order #: [id number] FUTURE Prescriptions as of 01/29/2024 - simvastatin (ZOCOR) 20 (more content not included)... Normal [facility] T4 SerPl-mCncon 01-05-2024 T4 [Mass/Vol] 6.9 ug/dL Normal 5.5-10.2 [facility] Comment on above: Order Comment: Filemon mix Type: BLOOD SPECIMENOrdering Facility: [facility] Address: [address] [place] [address] Performed By: #### 3 016-3, 3026-2 ####[facility] [id number] [place] [address] [place] THYROGLOBULIN BY LC-MS/MS, S JOHN OR PLASMA, FOR THYROGLOBULIN ANTIBODY INTERFERENCEon 01-05-2024 THYROGLOBULIN, LC-MS/MS <0.5 Low 1.3-31.8 [facility] Comment on above: Order Comment: Filemon mix Type: BLOOD SPECIMENOrdering Facility: [facility] Address: [address] [place] [address] Result Comment: Results obtained with different test [...] developed and its performance characteristics determined by [employer]. It has not been cleared or approved by the US Food and Drug Administration. This test was performed in a CLIA certified laboratory and is intended for clinical purposes. Performed By: [employer] [address] [place] [address] Investor Relations Specialist: Luis Herrera MD, PhD CLIA Number: [id number] Performed By: #### T [facility] ####[facility] [id number] [place] [address] TSH SerPl-aCncon 01-05-2024 TSH Qn 2.390 m[IU]/L Normal 0.270-4.200 [facility] Comment on above: Order Comment: Speci men Type: BLOOD SPECIMENOrdering Facility: [facility] Address: [address] [place] [address] Performed By: #### 3 016-3, 3026-2 ####[facility] [id number] [place] [id number] [place] Follow-Upon 09-04-2023 Follow-Up [id number] Arvind Rm 1955 M Date Provider Department Center 09/04/2023 BRIAN TREVINO HVCVASENDRiley [place] [facility] No family history on file Level of Service:47961 [place] OFFICE/OUTPATIENT ESTABLISHED LOW MDM 20 MIN Normal [facility] CNOVon 08-27-2023 CNOV Office Visit (RADTSA ) ARVIND RM ([id number]) 1955 Date Time Provider Department 08/27/23 10:00 [...] by: Azam Guillermo MD cc: Gael Thomas [address] [place] [address] [place] [address] Joey Meadows MD [address] [place] [address] [address] [facility] [address] Allergies As of Date: 08/27/2023 Noted Allergy Reaction CLINDAMYCIN 04/01/2023 2 - Rash Date Reviewed: 08/27/2023 Reviewed by: Sherie Reich LPN - Fully Assessed Reason for Visit: Thyroid Cancer [879] Primary Visit Diagnosis:Thyroid cancer (HCC) [C73] Order(s):TSH BLD [SQTSH] Order #: [id number] FUTURE T4/THYROXINE BLOOD [SQT4] Order #: [id number] FUTURE THYROGLOBULIN BY LC-MS/MS, SERUM OR PLASMA, FOR THYROGLOBULIN ANTIBODY INTERFERENCE [SQTGMSMS] Order #: [id number] FUTURE Prescriptions as of 08/27/2023 - apixaban (ELIQUIS) 5 mg tab(s) Take 5 mg by mouth every 12 hours. - famotidine ( (more content not included)... Normal [facility] T4 SerPl-mCncon 08-18-2023 T4 [Mass/Vol] 7.1 ug/dL Normal 5.5-10.2 [facility] Comment on above: Order Comment: Specwaqar mix Type: BLOOD SPECIMENOrdering Facility: [facility] Address: [address] [place] [address] Performed By: #### 3 016-3, 3026-2 ####[facility] [id number] [place] [address] [place] TSH SerPl-aCncon 08-18-2023 TSH Qn 0.535 m[IU]/L Normal 0.270-4.200 [facility] Comment on above: Order Comment: Filemon mix Type: BLOOD SPECIMENOrdering Facility: [facility] Address: [address] [place] [address] Performed By: #### 3 016-3, 3026-2 ####[facility] JUANITA [id number] [id number] [id number] [facility] CNOVon 06-17-2023 CNOV Office Visit (RADTSA ) ARVIND RM ([id number]) 1955 M Date Time Provider Department 06/17/23 [...] by: Azam Guillermo MD cc: Gael Thomas [address] [place] [phone] Joey Meadows MD [address] [place] [address] [address] [facility] [address] Allergies As of Date: 06/17/2023 Noted Allergy Reaction CLINDAMYCIN 04/01/2023 2 - Rash Date Reviewed: 06/17/2023 Reviewed by: Aurea Chu RN - Fully Assessed Reason for Visit: Prostate Cancer [590] Primary Visit Diagnosis:Thyroid cancer (HCC) [C73] Order(s):T4/THYROXINE BLOOD [SQT4] Order #: [id number] FUTURE TSH BLD [SQTSH] Order #: [id number] FUTURE Prescriptions as of 06/24/2023 - omeprazole (PRILOSEC) 40 mg capsule Take 40 mg by mouth. - famotidine (PEPCID) 20 mg tablet Take 20 mg by mouth. - levothyroxine (SYNTHROID) 125 mcg tablet Take 1 tablet by mouth once daily. Sta (more content not included)... Normal [facility] thyroid ca whole bodyon 1 08-10-2022 [place] thyroid ca whole body [facility] [place] [address] Nuclear Medicine Report Signed Patient: Arvind Rm MR#: [id number] : 1955 Acct:[id number] Age/Sex: 68 / M ADM Date: 06/03/23 Loc: [place] Room: Type: [facility] Attending Dr: Temo Guillermo MD Copies [...] Pallavi Cline M.D.06/10/2023 4:04 PM Dictation Location: [place] [address] Transcribed By: [facility] 06/10/23 160 Dictated By: Pallavi Cline MD 06/10/23 1601 Signed By: 06/10/23 160 [facility] Javon 06-05-2023 CNPN Telephone (RADTSA) ARVIND RM ([id number]) 1955 M Date Time Provider Department 06/05/23 Azam GUILLERMO During your visit today, we recorded the following information about you: Sherie Reich LPN 06/05/2023 1:42 PM Signed Please sign pended Thyroid WBS and fax to [facility] and Nuc Med. ELIJAH Wall Angela, RN 06/08/2023 8:21 AM Signed Order was faxed. Aurea Chu RN Allergies As of Date: 06/05/2023 Noted Allergy Reaction CLINDAMYCIN 04/01/2023 2 - Rash Date Reviewed: 06/02/2023 Reviewed by: Graves, Sherie, PHP LAMP DEVELOPER - Fully Assessed Reason for Visit: Orders [681] Primary Visit Diagnosis:Thyroid cancer (HCC) [C73] Order(s):NM THYROID CA WB [2535437] Order #: [id number] FUTURE Prescriptions as of 06/08/2023 - omeprazole [...] Status:Closed by Azam GUILLERMO on 06/05/23 Normal [facility] Thyroglobulin and Thyrogobul in Ab panelon 06-04-2023 Thyroglobulin Ab Qn <4.0 IU/mL [facility] Thyroglobulin, Serum 2.8 ng/mL 1.6 - 5 0.0 ng/mL [facility] CNOVon 06-03-2023 CNOV Office Visit (RADTSA ) ARVIND RM ([id number]) 1955 M Date Time Provider Department 06/03/23 12:15 PM Azam GUILLERMO RADTSA During your visit today, we recorded the following information about you: Azam Guillermo MD 06/04/2023 1:08 PM Signed PATIENT NAME: Arvind Rm PATIENT : 1955 See note at [facility] Allergies As of Date: 06/03/2023 Noted Allergy Reaction CLINDAMYCIN 04/01/2023 2 - Rash Date Reviewed: 06/02/2023 Reviewed by: Sherie Reich LPN - Fully Assessed Primary Visit Diagnosis:Thyroid cancer (HCC) [C73] Order(s):THYROGLOBULIN , SERUM WITH REFLEX TO IA OR LC-MS/MS [SQTHYRORF] Order #: [id number] FUTURE Prescriptions as of 06/04/2023 - omeprazole [...] Encounter Status:Closed by Azam GUILLERMO on 06/04/23 [facility] tx radpharm oralon 2022 [place] tx radpharm oral [facility] [place] [address] Nuclear Medicine Report Signed Patient: Arvind Rm MR#: [id number] : 1955 Acct:[id number] Age/Sex: 68 / M ADM Date: 06/03/23 Loc: [place] Room: Type: [facility] Attending Dr: Temo Guillermo MD Copies [...] MD 06/03/23 1226 Signed By: 08/07/23 1102 [facility] Thyroglobulin and Thyrogobul in Ab panelon 06-03-2023 Thyroglobulin Ab Qn [IU]/mL Normal <4.0 [facility] Comment on above: Order Comment: Filemon mix Type: BLOOD SPECIMENOrdering Facility: [facility] Address: [address] [place] [address] Result Comment: The Thyroglobulin Antibody test was performed using the Viraloidel DXI paramagnetic particle chemiluminescent immunoassay method. Results obtained with different assay methods or kits cannot be used interchangeably. Performed By: #### 5 7780-9 ####[facility] [id number] [place] [address] [place] THYROGLOBULIN, SERUM 2.8 ng/mL Normal 1.6-50.0 [facility] Comment on above: Order Comment: Filemon mix Type: BLOOD SPECIMENOrdering Facility: [facility] Address: [address] [place] [address] Result Comment: The Thyroglobulin test was performed using the Nex[employer] Un[employer]el DXI paramagnetic particle chemiluminescent immunoassay method. Results obtained with different assay methods or kits cannot be used interchangeably. Performed By: #### 5 7780-9 ####[facility] [id number] [place] [address] [place] CNOVon 06-02-2023 CNOV Office Visit (RADTSA ) ARVIND RM ([id number]) 1955 M Date Time Provider Department 06/02/23 9:00 AM LAB/PORT RADT MELISSA NANCY During your visit today, we recorded the following information about you: Temperature Pulse Respiration Blood pressure 97.4 degrees 78/minute 16/minute 132/84 Referring Provider: Azam GUILLERMO [[id number]] Allergies As of Date: 06/02/2023 Noted Allergy [...] Encounter Status:Closed by SHERIE REICH [facility] (RADTSA ) ARVIND RM ([id number]) 1955 M Date Time Provider Department 06/01/23 9:00 AM LAB/PORT RADT MELISSA CRUZ During your visit today, we recorded the following information about you: Temperature Pulse Respiration Blood pressure 97 degrees 68/minute 16/minute 133/86 Weight 80.3 kg Referring Provider: Azam GUILLERMO [[id number]] Allergies As of Date: 06/01/2023 Noted Allergy [...] Status:Closed by SHERIE REICH on 06/01/23 Normal [facility] Follow-Upon 05-22-2023 Follow-Up [id number] Arvind Rm 1955 M Date Provider Department Center 05/22/2023 [place] [facility] [place] [facility] No family history on file Level of Service:39690 [place] OFFICE/OUTPATIENT ESTABLISHED MOD MDM 30-39 MIN Normal [facility] Yovani 04-28-2023 L -- ---- Specimen: [id number] Received: 04/28/23 Status: CINDY Aponte Num: [id number] Spec Type: Surgical Subm Dr: Modesto Guzmán MD Tissues: A Colon Biopsy (CECAL POLYPS) B Colon Biopsy (ASCENDING POLYP) C Colon Biopsy (RECTAL POLYP) Procedures: HE/Harinder Thornton/Paige L4/3 ---- Age/ Patient Sex Location Account Attending Physician ---- Arvind Rm 68/M [id number] Modesto Guzmán MD ---- SPEC NUM: [id number] RECD: 04/28/23 STATUS: CINDY JESSICA NUM: [id number] NANDO: 04/28/23 DR: Modesto Guzmán MD ENTERED: 04/28/23 [facility] DR: SPEC TYPE: Surgical DEPT: S ORDERED: [...] date of and ascending colon ---- Specimen: [id number] Received: 04/28/23 Status: CINDY Jessica Num: [id number] Spec Type: Surgical Subm Dr: Modesto Guzmán MD Tissues: A Colon Biopsy (CECAL POLYPS) B Colon Biopsy (ASCENDING POLYP) C Colon Biopsy (RECTAL POLYP) Procedures: HE/6, Gross/Micro L4/3 ---- Patient: Arvind Rm [id number] (Continued) ---- Specimen: [id number] Received: 04/28/23 (Continued) Gross Description (Continued) Signed (signature on file) Favian Nash MD 04/29/23 0943 ---- Specimen: [id number] Received: 04/28/23 Status: CINDY Aponte Num: [id number] Spec Type: Surgical Subm Dr: Modesto Guzmán MD Tissues: A Colon Biopsy (CECAL POLYPS) B Colon Biopsy (ASCENDING POLYP) C Colon Biopsy (RECTAL POLYP) Procedures: HE/6, Gross/Micro L4/3 ---- Patient: Arvind Rm [id number] (Continued) ---- Specimen: [id number] Received: 04/28/23 (Continued) Gross Description (Continued) are [...] microscopic examination confirms the diagnosis. CPT Codes 15030i9 ---- ---- Specimen: [id number] Received: 04/28/23 Status: CINDY Aponte Num: [id number] Spec Type: Surgical Subm Dr: Modesto Guzmán MD Tissues: A Colon Biopsy (CECAL POLYPS) B Colon Biopsy (ASCENDING POLYP) C Colon Biopsy (RECTAL POLYP) Procedures: HE/6, Gross/Micro L4/3 ---- Patient: Arvind Rm [id number] (Continued) ---- Signed (signature on file) Favian Nash MD 04/29/23 0943 [facility] THYROGLOBULIN BY MASS SPECTR OMETRYon 04-07-2023 Thyroglobulin [Mass/Vol] 1.7 ng/mL 1.3 - 31.8 ng/mL [facility] CNOVon 04-01-2023 CNOV Office Visit (RADTSA ) ARVIND RM ([id number]) 1955 M Date Time Provider Department 04/01/23 [...] Encounter Status:Closed by SHERIE REICH on 04/01/23 [facility] Office Visit (RADTSA ) ARVIND RM ([id number]) 1955 M Date Time Provider Department 04/01/23 [...] HPI ASSESS (more content not included)... Normal [facility] RM ([id number]) 1955 M Date Time Provider Department 04/01/23 [...] cancer (HCC) [C73] Order(s):I-131SODIUMIO DIDECAP PER MCI [[id number]] Order #: [id number] Prescriptions as of 04/08/2023 - apixaban (ELIQUIS) [...] Status:Closed by Azam GUILLERMO on 04/08/23 Normal [facility] THYROGLOBULIN BY MASS SPECTR OMETRYon 04-01-2023 THYROGLOBULIN, LC-MS/MS 1.7 ng/mL Normal 1.3-31.8 [facility] Comment on above: Order Comment: Speci men Type: BLOOD SPECIMENOrdering Facility: [facility] Address: [address] [place], [place] [address] [address] Result Comment: Results obtained with different test [...] developed and its performance characteristics determined by [employer]. It has not been cleared or approved by the US Food and Drug Administration. This test was performed in a CLIA certified laboratory and is intended for clinical purposes. Performed By: [employer] [address] [place] [address] Investor Relations Specialist: Luis Herrera MD, PhD CLIA Number: [id number] Performed By: #### T [facility] ####[facility] [id number] [place] [address] APTTon 03-20-2023 ACTIVATED PARTIAL THROMBOPLASTIN TIME IN PPP BY COAGULATION ASSAY 62.7 Seconds High 25.0-35.0 [facility] Comment on above: Order Comment: Monit or aPTT level 6 hours after rate change, then every 6 hours until therapeutic twice. While therapeutic monitor every AM. Result Comment: Clin ical significance of the APTT is questionable in the presence of heparin. Performed By: #### L AB103 #### [facility] ([facility]) [address] [place] [address] ACTIVATED PARTIAL THROMBOPLASTIN TIME IN PPP BY COAGULATION ASSAY 76.6 Seconds High 25.0-35.0 [facility] Comment on above: Order Comment: Monit or aPTT level 6 hours after rate change, then every 6 hours until therapeutic twice. While therapeutic monitor every AM. Result Comment: Clin ical significance of the APTT is questionable in the presence of heparin. Performed By: #### L AB325 #### [facility] ([facility]) [address] [place] [place] [address] ACTIVATED PARTIAL THROMBOPLASTIN TIME IN PPP BY COAGULATION ASSAY 118.5 Seconds High 25.0-35.0 [facility] Comment on above: Order Comment: Basel ine aPTT before initiating heparin infusion. Result Comment: Clin ical significance of the APTT is questionable in the presence of heparin. Performed By: #### L AB113 #### [facility] ([facility]) [address] [place] [address] BASIC METABOLIC PANELon 08-2 Anion gap [Moles/Vol] 12 mmol/L Normal 7-20 [facility] Comment on above: Performed By: #### L AB15 #### [facility] ([facility]) [address] [place] [address] Calcium [Mass/Vol] 8.7 mg/dL Normal 8.6-10.3 [facility] Comment on above: Performed By: #### L AB15 #### [facility] ([facility]) [address] [place] [address] Chloride [Moles/Vol] 105 mmol/L Normal 98-107 [facility] Comment on above: Performed By: #### L AB15 #### [facility] ([facility]) [address] [place] [address] CO2 [Moles/Vol] 24 mmol/L Normal 21-31 [facility] Comment on above: Performed By: #### L AB15 #### [facility] ([facility]) [address] [place] [address] Creatinine [Mass/Vol] 0.93 mg/dL Normal 0.70-1.30 [facility] Comment on above: Performed By: #### L AB15 #### [facility] ([facility]) [address] [place] [address] GLOMERULAR FILTRATION RATE ML/MIN/1.73 SQ M.PREDICTED 89.4 mL/min/1.73m*2 Normal >60.[address] [facility] Comment on above: Result Comment: [facility]???s estimated glomerular filtration rate (eGFR) [...] individuals. Performed By: #### L AB15 #### [facility] ([facility]) [address] [place] [address] Glucose [Mass/Vol] 125 mg/dL High 70-100 [facility] Comment on above: Performed By: #### L AB15 #### [facility] ([facility]) [address] [place] [address] Potassium [Moles/Vol] 3.8 mmol/L Normal 3.5-5.1 [facility] Comment on above: Performed By: #### L AB15 #### [facility] ([facility]) [address] [place] [address] Sodium [Moles/Vol] 137 mmol/L Normal 136-145 [facility] Comment on above: Performed By: #### L AB15 #### [facility] ([facility]) [address] [place] [address] Urea nitrogen [Mass/Vol] 22 mg/dL Normal 7-25 [facility] Comment on above: Performed By: #### L AB15 #### [facility] ([facility]) [address] [place] [address] UREA NITROGEN/CREATININE (MASS RATIO) IN SER/PLAS 23.7 Normal [facility] Comment on above: Performed By: #### L AB15 #### [facility] ([facility]) [address] [place] [address] CBCon 03-20-2023 Erythrocyte distribution width (RBC) [Ratio] 12.1 % Normal 11.5-15.0 [facility] Comment on above: Performed By: #### L AB294 #### [facility] ([facility]) [address] [place] [address] ERYTHROCYTE MEAN CORPUSCULAR HEMOGLOBIN CONCENTRATION (G/DL) BY AUTOMATED 35.4 g/dL High 32.0-35.0 [facility] Comment on above: Performed By: #### L AB294 #### [facility] ([facility]) [address] [place] [address] Hematocrit (Bld) [Volume fraction] 39.0 % Normal 39.0-55.0 [facility] Comment on above: Performed By: #### L AB294 #### [facility] ([facility]) [address] [place] [address] Hemoglobin (Bld) [Mass/Vol] 13.8 g/dL Normal 13.0-17.0 [facility] Comment on above: Performed By: #### L AB294 #### [facility] ([facility]) [address] [place] [address] MCH (RBC) [Entitic mass] 30.8 pg Normal 27.0-33.0 [facility] Comment on above: Performed By: #### L AB294 #### [facility] ([facility]) [address] [place] [address] MCV (RBC) [Entitic vol] 87.1 fL Normal 82.0-98.0 [facility] Comment on above: Performed By: #### L AB294 #### [facility] ([facility]) [address] [place] [address] PLATELETS (10*3/UL) IN BLOOD AUTOMATED COUNT 205 10*3/uL Normal 150-400 [facility] Comment on above: Performed By: #### L AB294 #### [facility] ([facility]) [address] [place] [address] RBC (Bld) [#/Vol] 4.48 10*6/uL Normal 4.20-5.70 [facility] Comment on above: Performed By: #### L AB294 #### [facility] ([facility]) [address] [place] [address] WBC (Bld) [#/Vol] 8.59 10*3/uL Normal 4.00-10.60 [facility] Comment on above: Performed By: #### L AB294 #### [facility] ([facility]) [address] [place] [address] CBC WITH AUTO DIFFERENTIALon 03-20-2023 Basophils (Bld) [#/Vol] 0.02 10*3/uL Normal 0.00-0.20 [facility] Comment on above: Performed By: #### L AB113 #### [facility] ([facility]) [address] [place] [address] Basophils/100 WBC (Bld) 0.3 % Normal 0.0-1.0 [facility] Comment on above: Performed By: #### L AB113 #### [facility] ([facility]) [address] [place] [address] Eosinophils (Bld) [#/Vol] 0.12 10*3/uL Normal 0.00-0.50 [facility] Comment on above: Performed By: #### L AB113 #### [facility] ([facility]) [address] [place] [address] Eosinophils/100 WBC (Bld) 1.6 % Normal 0.0-6.0 [facility] Comment on above: Performed By: #### L AB113 #### [facility] ([facility]) [address] [place] [address] Erythrocyte distribution width (RBC) [Ratio] 12.1 % Normal 11.5-15.0 [facility] Comment on above: Performed By: #### L AB113 #### [facility] [facility] [address] [place] [address] ERYTHROCYTE MEAN CORPUSCULAR HEMOGLOBIN CONCENTRATION (G/DL) BY AUTOMATED 34.9 g/dL Normal 32.0-35.0 [facility] Comment on above: Performed By: #### L [id number] #### [facility] ([facility]) [address] [place] [address] Hematocrit (Bld) [Volume fraction] 39.2 % Normal 39.0-55.0 [facility] Comment on above: Performed By: #### L [id number] #### [facility] ([facility]) [address] [place] [address] Hemoglobin (Bld) [Mass/Vol] 13.7 g/dL Normal 13.0-17.0 [facility] Comment on above: Performed By: #### L [id number] #### [facility] ([facility]) [address] [place] [address] Immature granulocytes (Bld) [#/Vol] 0.08 10*3/uL Normal 0.00-0.20 [facility] Comment on above: Performed By: #### L [id number] #### [facility] ([facility]) [address] [place] [address] Immature granulocytes/100 WBC (Bld) 1.0 % Normal 0.0-1.0 [facility] Comment on above: Performed By: #### L [id number] #### [facility] ([facility]) [address] [place] [address] Lymphocytes (Bld) [#/Vol] 1.78 10*3/uL Normal 1.20-4.00 [facility] Comment on above: Performed By: #### L [id number] #### [facility] ([facility]) [address] [place] [address] Lymphocytes/100 WBC (Bld) 23.0 % Normal 20.0-45.0 [facility] Comment on above: Performed By: #### L [id number] #### [facility] ([facility]) [address] [place] [address] MCH (RBC) [Entitic mass] 30.6 pg Normal 27.0-33.0 [facility] Comment on above: Performed By: #### L [id number] #### [facility] ([facility]) [address] [place] [address] MCV (RBC) [Entitic vol] 87.5 fL Normal 82.0-98.0 [facility] Comment on above: Performed By: #### L [id number] #### [facility] ([facility]) [address] [place] [address] Monocytes (Bld) [#/Vol] 0.89 10*3/uL Normal 0.10-1.00 [facility] Comment on above: Performed By: #### L [id number] #### [facility] ([facility]) [address] [place] [address] Monocytes/100 WBC (Bld) 11.5 % Normal 5.0-12.0 [facility] Comment on above: Performed By: #### L [id number] #### [facility] ([facility]) [address] [place] [address] Neutrophils (Bld) [#/Vol] 4.85 10*3/uL Normal 1.60-7.60 [facility] Comment on above: Performed By: #### L [id number] #### [facility] ([facility]) [address] [place] [address] Neutrophils/100 WBC (Bld) 62.6 % Normal 40.0-72.0 [facility] Comment on above: Performed By: #### L [id number] #### [facility] ([facility]) [address] [place] [address] NRBC (PER 100 WBCS) BY AUTOMATED COUNT 0.0 % Normal 0 [facility] Comment on above: Performed By: #### L [id number] #### [facility] ([facility]) [address] [place] [address] PLATELETS (10*3/UL) IN BLOOD AUTOMATED COUNT 200 10*3/uL Normal 150-400 [facility] Comment on above: Performed By: #### L [id number] #### [facility] ([facility]) [address] [place] [address] RBC (Bld) [#/Vol] 4.48 10*6/uL Normal 4.20-5.70 [facility] Comment on above: Performed By: #### L [id number] #### [facility] ([facility]) [address] [place] [address] WBC (Bld) [#/Vol] 7.74 10*3/uL Normal 4.00-10.60 [facility] Comment on above: Performed By: #### L [id number] #### [facility] ([facility]) [address] [place] [address] DSon 03-20-2023 DS Admission Admitted 03/19/2023 for extensive RLE DVT Discharge Diagnosis DVT, lower extremity, proximal, acute, right ([facility]) Discharge Disposition Home or Self [...] Medications These medications were sent to [facility] - [place], [place] - [address], [facility] [address] apixaban 5 mg tablet apixaban 5 mg tablet Activity Patient currently has no discharge activity orders Diet Patient currently has no discharge diet orders Allergies Clindamycin and Shellfish derived Hospital Course Arvind Rm is a 68 y.o. male presenting to [facility] as a direct admit from [facility] on 03/19 for extensive right lower extremity [...] 05/22/2023 10:15 AM Liss Ji NP HVCVASENDO [place] HeartVAS Normal [facility] HEPARIN LEVELon 03-20-2023 HEPARIN UNFRACTIONATED (U/ML) IN PPP BY CHROMOGENIC METHOD 0.31 IU/mL Normal 0.3-0.7 [facility] Comment on above: Result Comment: [place] roxaban and Apixaban will interfere with the anti Xa assay used to monitor UFH and LMWH. Performed By: #### L [id number] #### [facility] ([facility]) [address] [place] [address] HEPARIN UNFRACTIONATED (U/ML) IN PPP BY CHROMOGENIC METHOD 0.23 IU/mL Low 0.3-0.7 [facility] Comment on above: Result Comment: [place] roxaban and Apixaban will interfere with the anti Xa assay used to monitor UFH and LMWH. Performed By: #### L [id number] #### [facility] ([facility]) [address] [place] [address] HEPARIN UNFRACTIONATED (U/ML) IN PPP BY CHROMOGENIC METHOD 0.34 IU/mL Normal 0.3-0.7 [facility] Comment on above: Result Comment: [place] roxaban and Apixaban will interfere with the anti Xa assay used to monitor UFH and LMWH. Performed By: #### L [id number] #### [facility] ([facility]) [address] [place] [address] HEPARIN UNFRACTIONATED (U/ML) IN PPP BY CHROMOGENIC METHOD 0.51 IU/mL Normal 0.3-0.7 [facility] Comment on above: Order Comment: Check anti-Xa level every 6 hours while on heparin infusion, or per protocol. Result Comment: [place] roxaban and Apixaban will interfere with the anti Xa assay used to monitor UFH and LMWH. Performed By: #### L [id number] #### [facility] ([facility]) [address] [place] [address] MAGNESIUMon 03-20-2023 Magnesium [Mass/Vol] 2.0 mg/dL Normal 1.9-2.7 [facility] Comment on above: Performed By: #### L [id number] #### [facility] ([facility]) [address] [place] [address] PHOSPHORUSon 03-20-2023 Magnesium [Mass/Vol] 3.5 mg/dL Normal 2.5-5.0 [facility] Comment on above: Performed By: #### L [id number] #### [facility] ([facility]) [address] [place] [address] PROTIME-INRon 03-20-2023 INR IN PPP BY COAGULATION ASSAY 1.15 High 0.90-1.10 [facility] Comment on above: Result Comment: [...] 1995;108:231S-246S. Performed By: #### L [id number] #### [facility] ([facility]) [address] [address] PROTHROMBIN TIME (PT) IN PPP BY COAGULATION ASSAY 14.7 Seconds Normal 12.3-14.8 [facility] Comment on above: Performed By: #### L [id number] #### [facility] ([facility]) [address] [place] [address] BASIC METABOLIC PANELon 02-25 Anion gap [Moles/Vol] 13 mmol/L Normal 7-20 [facility] Comment on above: Performed By: #### L [id number] #### [facility] ([facility]) [address] [address] Calcium [Mass/Vol] 9.1 mg/dL Normal 8.6-10.3 [facility] Comment on above: Performed By: #### L [id number] #### [facility] ([facility]) [address] [place] [address] Chloride [Moles/Vol] 101 mmol/L Normal 98-107 [facility] Comment on above: Performed By: #### L [id number] #### [facility] ([facility]) [address] [address] CO2 [Moles/Vol] 28 mmol/L Normal 21-31 [facility] Comment on above: Performed By: #### L [id number] #### [facility] ([facility]) [address] [facility] [place] [place] [address] Creatinine [Mass/Vol] 0.97 mg/dL Normal 0.70-1.30 [facility] Comment on above: Performed By: #### L [id number] #### [facility] ([facility]) [address] [place] [address] GLOMERULAR FILTRATION RATE ML/MIN/1.73 SQ M.PREDICTED 85.0 mL/min/1.73m*2 Normal >60.[address] [facility] Comment on above: Result Comment: [facility]???s estimated glomerular filtration rate (eGFR) [...] individuals. Performed By: #### L [id number] #### [facility] ([facility]) [address] [place] [address] Glucose [Mass/Vol] 159 mg/dL High 70-100 [facility] Comment on above: Performed By: #### L [id number] #### [facility] ([facility]) [address] [place] [address] Potassium [Moles/Vol] 3.5 mmol/L Normal 3.5-5.1 [facility] Comment on above: Performed By: #### L [id number] #### [facility] ([facility]) [address] [place] [address] Sodium [Moles/Vol] 138 mmol/L Normal 136-145 [facility] Comment on above: Performed By: #### L [id number] #### [facility] ([facility]) [address] [place] [address] Urea nitrogen [Mass/Vol] 22 mg/dL Normal 7-25 [facility] Comment on above: Performed By: #### L [id number] #### [facility] ([facility]) [address] [facility] [place] [address] UREA NITROGEN/CREATININE (MASS RATIO) IN SER/PLAS 22.7 Normal [facility] Comment on above: Performed By: #### L [id number] #### [facility] ([facility]) [address] [place] [address] CBC WITH AUTO DIFFERENTIALon 03-19-2023 Basophils (Bld) [#/Vol] 0.04 10*3/uL Normal 0.00-0.20 [facility] Comment on above: Performed By: #### L [id number] #### [facility] ([facility]) [address] [place] [address] Basophils/100 WBC (Bld) 0.5 % Normal 0.0-1.0 [facility] Comment on above: Performed By: #### L [id number] #### [facility] ([facility]) [address] [place] [address] Eosinophils (Bld) [#/Vol] 0.15 10*3/uL Normal 0.00-0.50 [facility] Comment on above: Performed By: #### L [id number] #### [facility] ([facility]) [address] [place] [address] Eosinophils/100 WBC (Bld) 1.7 % Normal 0.0-6.0 [facility] Comment on above: Performed By: #### L [id number] #### [facility] ([facility]) [address] [place] [address] Erythrocyte distribution width (RBC) [Ratio] 12.3 % Normal 11.5-15.0 [facility] Comment on above: Performed By: #### L [id number] #### [facility] ([facility]) [address] [place] [address] ERYTHROCYTE MEAN CORPUSCULAR HEMOGLOBIN CONCENTRATION (G/DL) BY AUTOMATED 34.3 g/dL Normal 32.0-35.0 [facility] Comment on above: Performed By: #### L [id number] #### [facility] ([facility]) [address] [place] [address] Hematocrit (Bld) [Volume fraction] 42.8 % Normal 39.0-55.0 [facility] Comment on above: Performed By: #### L [id number] #### [facility] ([facility]) [address] [place] [address] Hemoglobin (Bld) [Mass/Vol] 14.7 g/dL Normal 13.0-17.0 [facility] Comment on above: Performed By: #### L [id number] #### [facility] ([facility]) [address] [place] [address] Immature granulocytes (Bld) [#/Vol] 0.09 10*3/uL Normal 0.00-0.20 [facility] Comment on above: Performed By: #### L [id number] #### [facility] ([facility]) [address] [place] [address] Immature granulocytes/100 WBC (Bld) 1.0 % Normal 0.0-1.0 [facility] Comment on above: Performed By: #### L [id number] #### [facility] ([facility]) [address] [place] [address] Lymphocytes (Bld) [#/Vol] 2.02 10*3/uL Normal 1.20-4.00 [facility] Comment on above: Performed By: #### L [id number] #### [facility] ([facility]) [address] [place] [address] Lymphocytes/100 WBC (Bld) 23.3 % Normal 20.0-45.0 [facility] Comment on above: Performed By: #### L [id number] #### [facility] ([facility]) [address] [place] [address] MCH (RBC) [Entitic mass] 30.6 pg Normal 27.0-33.0 [facility] Comment on above: Performed By: #### L [id number] #### [facility] ([facility]) [address] [place] [address] MCV (RBC) [Entitic vol] 89.2 fL Normal 82.0-98.0 [facility] Comment on above: Performed By: #### L [id number] #### [facility] ([facility]) [address] [address] Monocytes (Bld) [#/Vol] 0.71 10*3/uL Normal 0.10-1.00 [facility] Comment on above: Performed By: #### L [id number] #### [facility] ([facility]) [address] [place] [address] Monocytes/100 WBC (Bld) 8.2 % Normal 5.0-12.0 [facility] Comment on above: Performed By: #### L [id number] #### [facility] ([facility]) [address] [place] [address] Neutrophils (Bld) [#/Vol] 5.67 10*3/uL Normal 1.60-7.60 [facility] Comment on above: Performed By: #### L [id number] #### [facility] ([facility]) [address] [place] [address] Neutrophils/100 WBC (Bld) 65.3 % Normal 40.0-72.0 [facility] Comment on above: Performed By: #### L [id number] #### [facility] ([facility]) [address] [place] [address] NRBC (PER 100 WBCS) BY AUTOMATED COUNT 0.0 % Normal 0 [facility] Comment on above: Performed By: #### L [id number] #### [facility] ([facility]) [address] [place] [address] PLATELETS (10*3/UL) IN BLOOD AUTOMATED COUNT 219 10*3/uL Normal 150-400 [facility] Comment on above: Performed By: #### L [id number] #### [facility] ([facility]) [address] [place] [address] RBC (Bld) [#/Vol] 4.80 10*6/uL Normal 4.20-5.70 [facility] Comment on above: Performed By: #### L [id number] #### [facility] ([facility]) [address] [place] [address] WBC (Bld) [#/Vol] 8.68 10*3/uL Normal 4.00-10.60 [facility] Comment on above: Performed By: #### L [id number] #### [facility] ([facility]) [address] [place] [address] CTA AORTA AND BILATERAL ILIO FEMORAL RUNOFF [...] dilated bladder hydronephrosis Electronically signed: Luis Burroughs. [facility] Comment on above: Order [...] vein's. We will obtain CT scan with [place] to evaluate for iliac vein of thrombosis. If any involvement of the proximal segments, including the Common femoro, or iliacs Vein will consider thrombectomy otherwise will be treated with anticoagulation. [facility] Vascular Surgery Service HISTORY AND PHYSICAL History Of Present Illness Arvind Rm is a 68 y.o. male presenting to [facility] as a direct admit from [facility] for extensive right lower extremity DVT. [...] worsened last night/this morning prompting presentation to [place] ED. In ED patient had US of [...] of DVT of leg (deep venous thrombosis) ([facility]) (03/19/2023). Surgical History He has [...] lower le (more content not included)... Normal [facility] MAGNESIUMon 03-19-2023 Magnesium [Mass/Vol] 2.0 mg/dL Normal 1.9-2.7 [facility] Comment on above: Performed By: #### L [id number] #### [facility] ([facility]) [address] [place] [address] PHOSPHORUSon 03-19-2023 Magnesium [Mass/Vol] 3.7 mg/dL Normal 2.5-5.0 [facility] Comment on above: Performed By: #### L [id number] #### [facility] ([facility]) [address] [place] [address] PROTIME-INRon 03-19-2023 INR IN PPP BY COAGULATION ASSAY 1.19 High 0.90-1.10 [facility] Comment on above: Result Comment: [...] 1995;108:231S-246S. Performed By: #### L [id number] #### [facility] ([facility]) [address] [place] [address] PROTHROMBIN TIME (PT) IN PPP BY COAGULATION ASSAY 15.1 Seconds High 12.3-14.8 [facility] Comment on above: Performed By: #### L [id number] #### [facility] ([facility]) [address] [place] [address] Consultation Noteon 01-30-20 Consultation Note [id number] 0CD:[address] [facility] US FNA W US GD ADD LESon US FNA W US GD ADD LES Begin Addendum #1 COLLECTED DATE/TIME: 11/11/2022 09:46 EDT Final Diagnosis Report for THE MODEL, [place] (A/B) RIGHT THYROID INFERIOR NODULE: FINE [...] (FNA). 2. Pathology results are pending. Normal [facility] Pathology Noteon 11-10-2022 Pathology Note [id number] 0CD:[address] [facility] Outside Colonoscopyon 2022 Outside Colonoscopy [id number] 0CD:[address] [facility] US THYROIDon 10-30-2022 US THYROID [...] cm left nodules is recommended TI-RADS: The [employer] [place] TI-RADS committee's white paper recommendations for thyroid lesions classified as TR4 (moderately suspicious) are listed below: > 1.0 cm. Follow-up ultrasound in 1, 2, 3, and 5 years. > 1.5 cm. FNA. J. Am Nando Radiol 2017;14:587-595. TI-RADS: The [place] [employer] TI-RADS committee's white paper recommendations for thyroid lesions classified as TR5 (highly suspicious) are listed below: > 0.5 cm. Annual ultrasound follow-up for up to 5 years. > 1.0 cm. FNA. J. Am Nando Radiol 2017;14:587-595. Electronically authenticated by: DIANA DAVID Date: 2022-10-30 14:53 Normal [facility] Consent for Procedure/Surger yon 10-23-2022 Consent for Procedure/Surgery [id number] 0CD:[address] [facility] Facesheeton 10-23-2022 Facesheet [id number] 0CD:[address] [facility] Pre-Certification Formon Pre-Certification Form [id number]. 00CD:127 [facility] Ambulatory Visit Summaryon 0 10-22-2022 Ambulatory Visit [...] of colon cancer Hyperlipidemia Normal [facility] Physician Referralon 023 Physician Referral [id number]#1.0 0CD:127 [facility] PSA, FREE AND TOTAL RATIOon 08-23-2022 % Free PSA 21.0 % Normal [facility] Comment on above: Result Comment: The table [...] men. Performed By: #### P SAFREE #### [facility] [address] [address] [address] Remigio Han Prostate specific Ag [Mass/Vol] 3.1 ng/mL Normal 0.0-4.0 [facility] Comment on above: Result Comment: Cydney VARELA methodology. . According to the [employer] [place] [employer], Serum PSA should decrease and [...] disease. Performed By: #### P SAFREE #### [facility] [address] [place] [address] Dr. Remigio Han PSA, Free 0.65 ng/mL Normal N/A [facility] Comment on above: Result Comment: Cydney VARELA methodology. Performed By: #### P SAFREE #### [facility] [address] [place] [address] Dr. Remigio Han PSA, FREE AND TOTAL RATIOon 02-21-2022 % Free PSA 24.9 % Normal [facility] Comment on above: Result Comment: The table [...] men. Performed By: #### P SAFREE #### [facility] [address] [place] [address] Dr. Remigio Han Prostate specific Ag [Mass/Vol] 4.5 ng/mL Critically high 0.0-4.0 [facility] Comment on above: Result Comment: Cydney VARELA methodology. . According to the [employer] [place] [employer], Serum PSA should decrease and [...] disease. Performed By: #### P SAFREE #### [facility] [address] [place] [address] Dr. Remigio Han PSA, Free 1.12 ng/mL Normal N/A [facility] Comment on above: Result Comment: Cydney bergman ECLIA methodology. Performed By: #### P SAFREE #### [facility] [address] [place] [address] Dr. Remigio Han INSULINon 02-20-2022 Insulin 14.7 uIU/mL Normal 2.6-24.9 [facility] Comment on above: Performed By: #### I NSULIN #### [facility] [address] [place] [address] Dr. Remigio Han CBC AUTO DIFFon 02-19-2022 BASO # 0.0 103/ul Normal 0.0-0.1 [facility] Comment on above: Performed By: #### C BC #### [facility] [address] [place] [address] Dr. Remigio Han Basophils/100 WBC (Bld) 0.5 % Normal 0.2-2.0 [facility] Comment on above: Performed By: #### C BC #### [facility] [address] [address] [address] Remigio Han EO # 0.1 103/ul Normal 0.0-0.7 [facility] Comment on above: Performed By: #### C BC #### [facility] [address] [place] [address] Dr. Remigio Han Eosinophils/100 WBC (Bld) 1.5 % Normal 0.9-7.0 [facility] Comment on above: Performed By: #### C BC #### [facility] [address] [place] [address] Dr. Remigio Han Erythrocyte distribution width (RBC) [Ratio] 13.0 % Normal 11.0-15.0 [facility] Comment on above: Performed By: #### C BC #### [facility] [address] [place] [address] Dr. Remigio Han Hematocrit (Bld) [Volume fraction] 48.4 % Normal 42.0-54.0 [facility] Comment on above: Performed By: #### C BC #### [facility] [address] [place] [address] Dr. Remigio Han Hemoglobin (Bld) [Mass/Vol] 16.6 g/dL Normal 14.0-18.0 [facility] Comment on above: Performed By: #### C BC #### [facility] [address] [place] [address] Dr. Remigio Han IG # 0.02 10e3/ul Normal 0.00-0.03 [facility] Comment on above: Performed By: #### C BC #### [facility] [address] [place] [address] Dr. Remigio Han IG % 0.4 % Normal 0.0-0.5 [facility] Comment on above: Performed By: #### C BC #### [facility] [address] [place] [address] Dr. Remigio Han LYMPH # 1.6 103/ul Normal 1.2-3.8 [facility] Comment on above: Performed By: #### C BC #### [facility] [address] [place] [address] Dr. Remigio Han Lymphocytes/100 WBC (Bld) 30.0 % Normal 20.5-60.0 [facility] Comment on above: Performed By: #### C BC #### [facility] [address] [place] [address] Dr. Remigio Han MANUAL DIFF REQ NO Normal [facility] Comment on above: Performed By: #### C BC #### [facility] [address] [place] [address] Dr. Remigio Han MCH (RBC) [Entitic mass] 30.2 pg Normal 25.9-34.0 [facility] Comment on above: Performed By: #### C BC #### [facility] [address] [place] [address] Dr. Remigio Han MCHC (RBC) [Mass/Vol] 34.3 g/dL Normal 29.9-35.2 [facility] Comment on above: Performed By: #### C BC #### [facility] [address] [place] [address] Dr. Remigio Han MCV (RBC) [Entitic vol] 88.2 fL Normal 80.0-94.0 [facility] Comment on above: Performed By: #### C BC #### [facility] [address] [place] [address] Dr. Remigio Han MONO # 0.4 103/ul Normal 0.3-0.8 [facility] Comment on above: Performed By: #### C BC #### [facility] [address] [place] [address] Dr. Remigio Han Monocytes/100 WBC (Bld) 8.1 % Normal 1.7-12.0 [facility] Comment on above: Performed By: #### C BC #### [facility] [address] [place] [address] Dr. Remigio Han NEUT # 3.3 103/ul Normal 1.4-6.5 [facility] Comment on above: Performed By: #### C BC #### [facility] [address] [place] [address] Dr. Remigio Han Neutrophils/100 WBC (Bld) 59.5 % Normal 43.0-75.0 [facility] Comment on above: Performed By: #### C BC #### [facility] [address] [place] [address] Dr. Remigio Han Platelet mean volume (Bld) [Entitic vol] 9.8 fL Normal 9.5-13.5 [facility] Comment on above: Performed By: #### C BC #### [facility] [address] [place] [address] Dr. Remigio Han PLT 217 103/ul Normal 150-450 [facility] Comment on above: Performed By: #### C BC #### [facility] [address] [place] [address] Dr. Remigio Han RBC 5.49 106/ul Normal 4.70-6.10 [facility] Comment on above: Performed By: #### C BC #### [facility] [address] [place] [address] Dr. Remigio Han WBC 5.5 103/ul Normal 4.0-11.0 [facility] Comment on above: Performed By: #### C BC #### [facility] [address] [place] [address] Dr. Remigio Han GLYCOHEMOGLOBIN A1Con 2021 ADA RECOMMENDATION SEE BELOW Normal [facility] Comment on above: Result Comment: ADA RECOMMENDED LIMIT 4.0 - 6.0 ADA THERAPEUTIC TARGET < 7.0 ACTION SUGGESTED > 7.0 Performed By: #### A 1C #### [facility] [address] [place] [address] Dr. Remigio Han Glucose [Mass/Vol] 103 mg/dL Normal [facility] Comment on above: Performed By: #### A 1C #### [facility] [address] [place] [address] Dr. Remigio Han HbA1c (Bld) [Mass fraction] 5.2 % Normal 4.5-6.2 [facility] Comment on above: Performed By: #### A 1C #### [facility] [address] [place], [place] [address] Dr. Remigio Han LIPID PROFILEon 02-19-2022 CHOL-HDL RATIO NORM SEE BELOW Normal [facility] Comment on above: Result Comment: 3.3 - 4.4 LOW RISK 4.4 - 7.1 AVERAGE RISK 7.1 - 11.0 MODERATE RISK >11.0 HIGH RISK Performed By: #### L IPID, CMP ####[facility] [id number] [place] [id number]. Remigio Han Cholesterol [Mass/Vol] 259 mg/dL Critically high <=200 [facility] Comment on above: Performed By: #### L IPID, CMP ####[facility] [id number] [place] [id number]. Remigio Han Cholesterol in HDL [Mass/Vol] 62 mg/dL Critically high 40-60 [facility] Comment on above: Performed By: #### L IPID, CMP ####[facility] [id number] [place] [id number]. Remigio Han Cholesterol in LDL [Mass/Vol] 171.8 mg/dL Normal [facility] Comment on above: Performed By: #### L IPID, CMP ####[facility] [id number] [place] [id number]. Remigio Han Cholesterol.total/Ch olesterol in HDL [Mass ratio] 4.2 {ratio} Normal [facility] Comment on above: Performed By: #### L IPID, CMP ####[facility] [id number] [place] [id number]. Remigio Han HDL NORMAL > or = 60 mg/dl - LO W CARDIOVASCULAR RISK <40 mg/dl - HIGH CARDIOVASCULAR RISK Normal [facility] Comment on above: Performed By: #### L IPID, CMP ####[facility] [id number] [place] [id number]. Remigio Han LDL CALC NORMAL SEE BELOW Normal [facility] Comment on above: Result Comment: <100 mg/dl OPTIMAL 100 - 129 mg/dl NEAR OR ABOVE OPTIMAL 130 - 159 mg/dl BORDERLINE HIGH 160 - 189 mg/dl HIGH >190 mg/dl VERY HIGH Performed By: #### L IPID, CMP ####[facility] [id number] [place], [place] [address]AxDr. Remigio Han Triglyceride [Mass/Vol] 126 mg/dL Normal <=150 [facility] Comment on above: Performed By: #### L IPID, CMP ####[facility] [id number] [place], [place] [address]HnCindi Han VLDL CALC 25.2 mg/dL Normal [facility] Comment on above: Performed By: #### L IPID, CMP ####[facility] [id number] [place] [id number] Han PROF 14(COMP METB)on 022 Albumin [Mass/Vol] 3.9 g/dL Normal 3.4-5.0 [facility] Comment on above: Performed By: #### L IPID, CMP #### [facility] [address] [place] [address] [address] Remigio Han Albumin/Globulin [Mass ratio] 1.1 {ratio} Normal [facility] Comment on above: Performed By: #### L IPID, CMP #### [facility] [address] [place] [address] [address] Remigio Han ALP [Catalytic activity/Vol] 65 U/L Normal 46-116 [facility] Comment on above: Performed By: #### L IPID, CMP #### [facility] [address] [place] [address] [address] Remigio Han ALT [Catalytic activity/Vol] 25 U/L Normal 16-63 [facility] Comment on above: Performed By: #### L IPID, CMP #### [facility] [address] [place] [address] [address] Remigio Han Anion gap [Moles/Vol] 13.1 mmol/L Normal [facility] Comment on above: Performed By: #### L IPID, CMP #### [facility] [address] [place] [address] [address] Remigio Han AST [Catalytic activity/Vol] 15 U/L Normal 15-37 [facility] Comment on above: Performed By: #### L IPID, CMP #### [facility] [address] [place] [address] [address] Remigio Han Bilirubin [Mass/Vol] 0.5 mg/dL Normal 0.2-1.0 [facility] Comment on above: Performed By: #### L IPID, CMP #### [facility] [address] [place] [address] Dr. Remigio Han Calcium [Mass/Vol] 9.5 mg/dL Normal 8.5-10.1 [facility] Comment on above: Performed By: #### L IPID, CMP #### [facility] [address] [place] [address] Dr. Remigio Han Chloride [Moles/Vol] 104 mmol/L Normal 98-107 [facility] Comment on above: Performed By: #### L IPID, CMP #### [facility] [address] [place] [address] Dr. Remigio Han CO2 [Moles/Vol] 28.3 mmol/L Normal 21.0-32.0 [facility] Comment on above: Performed By: #### L IPID, CMP #### [facility] [address] [place] [address] Dr. Remigio Han Creatinine [Mass/Vol] 1.05 mg/dL Normal 0.70-1.30 [facility] Comment on above: Performed By: #### L IPID, CMP #### [facility] [address] [place] [address] Dr. Remigio Han EGFR-AF TUVALUAN >60 Normal >=60 [facility] Comment on above: Performed By: #### L IPID, CMP #### [facility] [address] [place] [address] Dr. Remigio Han EGFR-NON AF TUVALUAN >60 Normal >=60 [facility] Comment on above: Performed By: #### L IPID, CMP #### [facility] [address] [place] [address] Dr. Remigio Han Globulin (S) [Mass/Vol] 3.4 g/dL Normal [facility] Comment on above: Performed By: #### L IPID, CMP #### [facility] [address] [place] [address] [address] Remigio Han Glucose [Mass/Vol] 93 mg/dL Normal 74-106 [facility] Comment on above: Performed By: #### L IPID, CMP #### [facility] [address] [place] [address] Dr. Remigio Han Potassium [Moles/Vol] 4.4 mmol/L Normal 3.5-5.1 [facility] Comment on above: Performed By: #### L IPID, CMP #### [facility] [address] [place] [address] Dr. Remigio Han Protein [Mass/Vol] 7.3 g/dL Normal 6.4-8.2 [facility] Comment on above: Performed By: #### L IPID, CMP #### [facility] [address] [place] [address] Dr. Remigio Han Sodium [Moles/Vol] 141 mmol/L Normal 136-145 [facility] Comment on above: Performed By: #### L IPID, CMP #### [facility] [address] [place] [address] Dr. Remigio Han Urea nitrogen [Mass/Vol] 25.0 mg/dL Critically high 7.0-18.0 [facility] Comment on above: Performed By: #### L IPID, CMP #### [facility] [address] [place] [address] Dr. Remigio Han Urea nitrogen/Creatinine [Mass ratio] 23.8 mg/mg Normal [facility] Comment on above: Performed By: #### L IPID, CMP #### [facility] [address] [place] [address] Dr. Remigio Han Vital Signs Date Time Vital Sign Value Performing Clinician Facility 01-19-2024 14:45-0400 Body mass index (BMI) [Ratio] 30.06 kg/m2 HARMONY Guillermo MD Work Phone: [facility] 01-19-2024 14:45-0400 Body weight 83.2 kg HARMONY Guillermo MD Work Phone: [facility] 01-19-2024 14:45-0400 Diastolic blood pressure 75 mm[Hg] HARMONY Guillermo MD Work Phone: [facility] 01-19-2024 14:45-0400 Heart rate 57 /min HARMONY Guillermo MD Work Phone: [facility] 01-19-2024 14:45-0400 Respiratory rate 16 /min HARMONY Guillermo MD Work Phone: [facility] 01-19-2024 14:45-0400 SaO2% (BldA) [Mass fraction] 99 % HARMONY Guillermo MD Work Phone: [facility] 01-19-2024 14:45-0400 Systolic blood pressure 129 mm[Hg] HARMONY Guillermo MD Work Phone: [facility] 08-27-2023 09:37-0500 Body temperature 97.5 [degF] HARMONY Guillermo MD Work Phone: [facility] 08-27-2023 09:37-0500 Body weight 86.4 kg HARMONY Guillermo MD Work Phone: [facility] 08-27-2023 09:37-0500 Diastolic blood pressure 80 mm[Hg] HARMONY Guillermo MD Work Phone: [facility] 08-27-2023 09:37-0500 Heart rate 70 /min HARMONY Guillermo MD Work Phone: [facility] 08-27-2023 09:37-0500 Respiratory rate 16 /min HARMONY Guillermo MD Work Phone: [facility] 08-27-2023 09:37-0500 SaO2% (BldA) [Mass fraction] 98 % HARMONY Guillermo MD Work Phone: [facility] 08-27-2023 09:37-0500 Systolic blood pressure 139 mm[Hg] HARMONY Guillermo MD Work Phone: [facility] 06-17-2023 10:19-0500 Body temperature 96.69 [degF] HARMONY Guillermo MD Work Phone: [facility] 06-17-2023 10:19-0500 Body weight 82.1 kg HARMONY Guillermo MD Work Phone: [facility] 06-17-2023 10:19-0500 Diastolic blood pressure 86 mm[Hg] HARMONY Guillermo MD Work Phone: [facility] 06-17-2023 10:19-0500 Heart rate 70 /min HARMONY Guillermo MD Work Phone: [facility] 06-17-2023 10:19-0500 Respiratory rate 18 /min HARMONY Guillermo MD Work Phone: [facility] 06-17-2023 10:19-0500 SaO2% (BldA) [Mass fraction] 98 % HARMONY Guillermo MD Work Phone: [facility] 06-17-2023 10:19-0500 Systolic blood pressure 143 mm[Hg] HARMONY Guillermo MD Work Phone: [facility] 06-02-2023 08:43-0500 Body temperature 97.39 [degF] [facility] Work Phone: [facility] 06-02-2023 08:43-0500 Diastolic blood pressure 84 mm[Hg] [facility] Work Phone: [facility] 06-02-2023 08:43-0500 Heart rate 78 /min [facility] Work Phone: [facility] 06-02-2023 08:43-0500 Respiratory rate 16 /min [facility] Work Phone: [facility] 06-02-2023 08:43-0500 SaO2% (BldA) [Mass fraction] 99 % [facility] Work Phone: [facility] 06-02-2023 08:43-0500 Systolic blood pressure 132 mm[Hg] [facility] Work Phone: [facility] 06-01-2023 08:41-0500 Body temperature 97 [degF] [facility] Work Phone: [facility] 06-01-2023 08:41-0500 Body weight 80.29 kg [facility] Work Phone: [facility] 06-01-2023 08:41-0500 Diastolic blood pressure 86 mm[Hg] [facility] Work Phone: [facility] 06-01-2023 08:41-0500 Heart rate 68 /min [facility] Work Phone: [facility] 06-01-2023 08:41-0500 Respiratory rate 16 /min [facility]/[place] Work Phone: [facility] 06-01-2023 08:41-0500 SaO2% (BldA) [Mass fraction] 99 % [facility] Work Phone: [facility] 06-01-2023 08:41-0500 Systolic blood pressure 133 mm[Hg] [facility] Work Phone: [facility] 04-28-2023 09:47-0400 Diastolic blood pressure 74 mm[Hg] MD Gael Thomas Work Phone: [facility] 04-28-2023 09:47-0400 Heart rate 78 /min MD Gael Thomas Work Phone: [facility] 04-28-2023 09:47-0400 Respiratory rate 20 /min MD Gael Thomas Work Phone: [facility] 04-28-2023 09:47-0400 SaO2% (BldA) [Mass fraction] 97 % MD Gael Thomas Work Phone: [facility] 04-28-2023 09:47-0400 Systolic blood pressure 126 mm[Hg] MD Gael Thomas Work Phone: [facility] 04-28-2023 09:32-0400 Inhaled oxygen flow rate 2 L/min MD Gael Thomas Work Phone: [facility] 04-28-2023 07:07-0400 Body height 166.37 cm MD Gael Thomas Work Phone: [facility] 04-28-2023 07:07-0400 Body weight 80.73 kg MD Gael Thomas Work Phone: [facility] 04-01-2023 12:33-0400 Body height 166.4 cm HARMONY Guillermo MD Work Phone: [facility] 04-01-2023 12:33-0400 Body temperature 98.01 [degF] HARMONY Guillermo MD Work Phone: [facility] 04-01-2023 12:33-0400 Body weight 78.93 kg HARMONY Guillermo MD Work Phone: [facility] 04-01-2023 12:33-0400 Diastolic blood pressure 78 mm[Hg] HARMONY Guillermo MD Work Phone: [facility] 04-01-2023 12:33-0400 Heart rate 86 /min HARMONY Guillermo MD Work Phone: [facility] 04-01-2023 12:33-0400 Respiratory rate 16 /min HARMONY Guillermo MD Work Phone: [facility] 04-01-2023 12:33-0400 SaO2% (BldA) [Mass fraction] 97 % HARMONY Guillermo MD Work Phone: [facility] 04-01-2023 12:33-0400 Systolic blood pressure 115 mm[Hg] HARMONY Guillermo MD Work Phone: [facility] 10-22-2022 15:26-0400 Blood Pressure Location Violeta TINOCO [facility] [place] 10-22-2022 15:26-0400 Diastolic blood pressure 80 mm[Hg] Violeta TINOCO [facility] [place] 10-22-2022 15:26-0400 Heart rate 74 /min Violeta TINOCO [facility] [place] 10-22-2022 15:26-0400 Respiratory rate 16 /min Violeta AMEZCUAL [facility] [place] 10-22-2022 15:26-0400 Systolic blood pressure 122 mm[Hg] Violeta AMEZCUAL [facility] [place] Encounters Encounter Date Encounter Type Care Provider Facility Start: 01-25-2024 Orders Only Azam calderon MD Work Phone: [facility] Start: 01-19-2024 End: 01-19-2024 ambulatory Azam GUILLERMO Facility:[facility] Start: 01-19-2024 End: 01-19-2024 Patient encounter procedure Azam Guillermo MD Work Phone: [facility] Comment on above: Thyroid cancer (HCC) (Primary Dx) Start: 01-05-2024 End: 01-05-2024 ambulatory [facility] Facility:[facility] Start: 11-18-2023 End: 11-18-2023 ambulatory JOEY MEADOWS Not Available Start: 10-05-2023 Refill Azam calderon MD Work Phone: [facility]cology Comment on above: Refill Request Start: 09-04-2023 ambulatory BRIAN MANZO [facility] Start: 08-27-2023 Refill Azam calderon MD Work Phone: [facility] Comment on above: Med Change Request Start: 08-27-2023 End: 08-27-2023 Patient encounter procedure Azam Guillermo MD Work Phone: [facility] Comment on above: Thyroid cancer (HCC) (Primary Dx) Start: 08-27-2023 End: 08-27-2023 ambulatory [facility] Facility:[facility] Start: 08-26-2023 End: 08-27-2023 ambulatory LISS PERNE [facility] Start: 08-19-2023 End: 08-19-2023 ambulatory JOEY H TIMMIS Not Available Start: 08-18-2023 End: 08-18-2023 ambulatory GAEL THOMAS Facility:[facility] Start: 07-15-2023 End: 07-15-2023 ambulatory JOEY H TIMMIS Not Available Start: 07-01-2023 End: 07-01-2023 ambulatory JOEY H TIMMIS Not Available Start: 06-17-2023 End: 06-17-2023 ambulatory Azam GUILLERMO Facility:[facility] Start: 06-17-2023 End: 06-17-2023 Patient encounter procedure Azam Guillermo MD Work Phone: Radiation Oncology Comment on above: Thyroid cancer (HCC) (Primary Dx) Start: 06-03-2023 End: 06-03-2023 ambulatory Temo Guillermo Facility:[facility] Start: 06-03-2023 End: 06-03-2023 Patient encounter procedure Azam Guillermo MD Work Phone: [facility]iation [facility]cology Comment on above: Thyroid cancer (HCC) (Primary Dx) Start: 06-03-2023 End: 06-03-2023 Patient encounter procedure MD Gael Thomas Work Phone: [facility] Work Phone: Start: 06-03-2023 End: 06-03-2023 ambulatory MD Gael Thomas Work Phone: [facility] Work Phone: Start: 06-02-2023 End: 06-02-2023 ambulatory Azam GUILLERMO Facility:[facility] Start: 06-02-2023 End: 06-02-2023 Patient encounter procedure [facility] [place] Work Phone: [facility] Comment on above: Thyroid cancer (HCC) (Primary Dx) Start: 06-01-2023 End: 06-01-2023 ambulatory Azam GUILLERMO Facility:[facility] Start: 06-01-2023 End: 06-01-2023 Patient encounter procedure [facility] [place] [place] Work Phone: [facility] Comment on above: Thyroid cancer (HCC) (Primary Dx) Start: 05-22-2023 ambulatory [facility] Start: 05-08-2023 Refill G Oracio calderon MD Work Phone: [facility]cology Comment on above: Refill Request Start: 04-28-2023 End: 04-28-2023 ambulatory Imad Asaad Facility:[facility] Start: 04-28-2023 End: 04-28-2023 Admission to same day surgery center MD Gael Thomas Work Phone: [facility] Work Phone: Start: 04-28-2023 End: 04-28-2023 ambulatory MD Gael Thomas Work Phone: [facility] Work Phone: Start: 04-21-2023 End: 04-21-2023 ambulatory Imad Asaad Other [employer] Other Start: 04-21-2023 Telephone encounter Imad Asaad [facility] Start: 04-09-2023 Patient encounter procedure [facility] Provider [facility] Department Start: 04-02-2023 Orders Only G Oracio calderon MD Work Phone: [facility] Start: 04-01-2023 End: 04-01-2023 ambulatory GAEL THOMAS Facility:[facility] Start: 04-01-2023 End: 04-01-2023 Patient encounter procedure [facility] [place] [place] Work Phone: [facility] Comment on above: Thyroid cancer (HCC) (Primary Dx) Start: 03-20-2023 Evaluation and management of inpatient [facility] Start: 03-19-2023 Evaluation and management of inpatient [facility] Start: 03-19-2023 Evaluation and management of inpatient GLEN DUPONT [facility] Start: 03-19-2023 End: 03-20-2023 Evaluation and management of inpatient KOJO FREITAS [facility] Start: 11-18-2022 ambulatory Violeta TINOCO Facility : [place] Start: 11-11-2022 End: 11-11-[address] GAEL THOMAS . Facility:[facility] Start: 11-05-2022 End: 11-06-[address] VIOLETA TINOCO . Facility:[facility] Start: 10-30-2022 End: 10-31-[address] GAEL THOMAS . Facility:[facility] Start: 10-22-2022 End: 10-23-2022 ambulatory [facility] Start: 10-22-2022 End: 10-22-2022 Patient encounter procedure Violeta TINOCO [facility] [place] [place] Start: 09-17-2022 ambulatory Viole[facility] TINOCO [facility] Start: 08-22-2022 End: 08-23-[address] GAEL THOMAS . Facility:[facility] Start: 02-19-2022 End: 02-20-[address] GAEL THOMAS . Facility: Procedures Date Procedure Procedure Detail Performing Clinician Start: 04-28-2023 Colonoscopy MD Gael Thomas Work Phone: Start: 04-01-2023 Assay of thyroglobulin Azam Guillermo MD Work Phone: Start: 02-19-[address] TOBIN THOMAS . Comment on above: Performed By: #### [facility] ####[place] [id number]. Remigio Han Colonoscopy Violeta TINOCO Plan of Treatment Date Care Activity Detail Author Start: 02-19-2027 Prostate Cancer Screening Discussion Prostate Cancer Screening Discussion [facility] Start: 02-19-2027 Prostate specific antigen measurement Prostate Cancer Screening Discussion [facility] Start: 03-20-2026 Diabetes Screening Diabetes Screenin g [facility] Start: 07-18-2024 End: 07-18-2024 Patient encounter procedure 07/18/2024 9:00 AM EST Office Visit Radiation Oncology [address] [place] [address] Azam Guillermo MD [address] [place] [address] followup Needds this due to Xmas* Radiation Oncology Comment on above: followup Needds th is due to Xmas* Start: 07-08-2024 End: 10-07-2024 THYROGLOBULIN BY LC-MS/MS, SERUM OR PLASMA, FOR THYROGLOBULIN ANTIBODY INTERFERENCE THYROGLOBULIN BY LC-MS/MS, SERUM OR PLASMA, FOR THYROGLOBULIN ANTIBODY INTERFERENCE Lab Routine Thyroid cancer (HCC) Expected: 07/08/2024, Expires: 10/07/2024 [facility] Work Phone: Comment on above: Expected: 07/08/2024 , Expires: 10/07/2024 Start: 07-08-2024 End: 07-08-2024 Patient encounter procedure 07/08/2024 9:00 AM EST Office Visit [facility] [address] [place] [address] [place] [address] lab- Thyroglobulin ONLY [facility] Comment on above: lab- Thyroglobulin O NLY Start: 07-05-2024 End: 07-05-2024 Patient encounter procedure 07/05/2024 9:00 AM EST Office Visit Radiation Oncology [address] [place] [address] Thyrogen [facility]cology Comment on above: Thyrogen Start: 07-04-2024 End: 10-03-2024 THYROGLOBULIN BY LC-MS/MS, SERUM OR PLASMA, FOR THYROGLOBULIN ANTIBODY INTERFERENCE THYROGLOBULIN BY LC-MS/MS, SERUM OR PLASMA, FOR THYROGLOBULIN ANTIBODY INTERFERENCE Lab Routine Thyroid cancer (HCC) Expected: 07/04/2024, Expires: 10/03/2024 [facility] Comment on above: Expected: 07/04/2024 , Expires: 10/03/2024 Start: 07-04-2024 End: 10-03-2024 Thyrotropin [Units/volume] in Serum or Plasma THYROID STIMULATING HORMONE Lab Routine Thyroid cancer (HCC) Expected: 07/04/2024, Expires: 10/03/2024 [facility] Comment on above: Expected: 07/04/2024 , Expires: 10/03/2024 Start: 07-04-2024 End: 10-03-2024 Thyroxine (T4) [Mass/volume] in Serum or Plasma T4/THYROXINE Lab Routine Thyroid cancer (HCC) Expected: 07/04/2024, Expires: 10/03/2024 [facility] Comment on above: Expected: 07/04/2024 , Expires: 10/03/2024 Start: 07-04-2024 End: 07-04-2024 Patient encounter procedure [facility] Comment on above: Draw T4, Tsh, and Th yroglobulin level Prior to injection Thyrogen Start: 03-27-2024 Influenza vaccination Influenz a Vaccine (Season Ended) [facility] Start: 12-26-2023 End: 03-26-2024 THYROGLOBULIN BY LC-MS/MS, SERUM OR PLASMA, FOR THYROGLOBULIN ANTIBODY INTERFERENCE THYROGLOBULIN BY LC-MS/MS, SERUM OR PLASMA, FOR THYROGLOBULIN ANTIBODY INTERFERENCE Lab Routine Thyroid cancer (HCC) Expected: 12/26/2023, Expires: 03/26/2024 [facility] Work Phone: Comment on above: Expected: 12/26/2023 , Expires: 03/26/2024 Start: 12-26-2023 End: 03-26-2024 Thyrotropin [Units/volume] in Serum or Plasma TSH BLD Lab Routine Thyroid cancer (HCC) Expected: 12/26/2023, Expires: 03/26/2024 [facility] Work Phone: Comment on above: Expected: 12/26/2023 , Expires: 03/26/2024 Start: 12-26-2023 End: 03-26-2024 Thyroxine (T4) [Mass/volume] in Serum or Plasma T4/THYROXINE BLOOD Lab Routine Thyroid cancer (HCC) Expected: 12/26/2023, Expires: 03/26/2024 [facility] Work Phone: Comment on above: Expected: 12/26/2023 , Expires: 03/26/2024 Start: 08-27-2023 End: 11-26-2023 Thyrotropin [Units/volume] in Serum or Plasma TSH BLD Lab Routine Thyroid cancer (HCC) Expected: 08/27/2023 (Approximate), Expires: 11/26/2023 [facility] Work Phone: Comment on above: Expected: 08/27/2023 (Approximate), Expires: 11/26/2023 Start: 08-27-2023 End: 11-26-2023 Thyroxine (T4) [Mass/volume] in Serum or Plasma T4/THYROXINE BLOOD Lab Routine Thyroid cancer (HCC) Expected: 08/27/2023 (Approximate), Expires: 11/26/2023 [facility] Work Phone: Comment on above: Expected: 08/27/2023 (Approximate), Expires: 11/26/2023 Start: 07-27-2023 Advance Directive Discussion Advance Directive Discussion [facility] Start: 07-27-2023 Behavioral Health Screening Behavioral Health Screening [facility] Start: 07-27-2023 Depression Assessment Depression Ass essment [facility] Start: 06-10-2023 Radionuclide localization of tumor, whole body NM thyroid ca whole body [facility] Start: 06-03-2023 Oral radionuclide therapy NM tx radpharm oral [facility] Start: 04-28-2023 [facility] Start: 04-01-2023 End: 06-01-2023 THYROGLOBULIN BY MASS SPECTROMETRY THYROGLOBULIN BY MASS SPECTROMETRY Lab Routine Thyroid cancer (HCC) Expected: 04/01/2023, Expires: 06/01/2023 [facility] Work Phone: Comment on above: Expected: 04/01/2023 , Expires: 06/01/2023 Start: 03-27-2023 Covid-19 Vaccine () Covid-19 Vaccine () [facility] Start: 03-27-2023 Influenza vaccination [facility] Start: 07-27-2022 ADVANCE DIRECTIVE DISCUSSION ADVANCE DIRECTIVE DISCUSSION [facility] Start: 07-27-2022 DEPRESSION ASSESSMENT DEPRESSION ASS ESSMENT [facility] Start: 05-19-2022 COVID-19 VACCINE (5 - Pfizer series) COVID-19 VACCINE (5 - Pfizer series) [facility] Start: 2020 Pneumococcal Vaccine : 65+ (1 - PCV) Pneumococcal Vaccine: 65+ (1 - PCV) [facility] Start: 2020 Pneumococcal Vaccine : 65+ (1 of 1 - PCV) Pneumococcal Vaccine: 65+ (1 of 1 - PCV) [facility] Start: 2020 PNEUMOCOCCAL: 65+ (1 - PCV) PNEUMOCOCCAL: 65+ (1 - PCV) [facility] Start: 2015 RSV Vaccine (1 - 1-d ose 60+ series) RSV Vaccine (1 - 1-dose 60+ series) [facility] Start: 2010 PROSTATE CANCER SCREENING DISCUSSION PROSTATE CANCER SCREENING DISCUSSION [facility] Start: 2005 SHINGRIX VACCINE (1 of 2) SHINGRIX VACCINE (1 of 2) [facility] Start: 2000 COLOGUARD (FIT-DNA) COLOGUARD (FIT-D NA) [facility] Start: 2000 Colonoscopy COLONOSCOPY [facility] Start: 2000 COLORECTAL CANCER SCREENING COLORECTAL CANCER SCREENING [facility] Start: [address] COLONOGRAPHY [facility] Start: 2000 DIABETES SCREEN DIABETES SCREEN [facility] Start: 2000 Diabetes Screening Diabetes Screenin g [facility] Start: 2000 FECAL OCCULT BLOOD FECAL OCCULT BLOO D [facility] Start: 2000 Screening for malign ant neoplasm of colon [facility] Start: 2000 SIGMOIDOSCOPY SIGMOIDOSCOPY [facility] Start: 1990 Lipid 1996 panel - S john or Plasma Lipid Screening [facility] Start: 1990 Lipid panel Lipid Screening [facility] Start: 1990 LIPID SCREEN LIPID SCREEN [facility] Start: 1974 Urine microalbumin profile [facility] Start: 1973 HEPATITIS C SCREENING HEPATITIS C [facility] Start: 1973 Hepatitis C screening Hepatitis C [facility] Start: 1955 ABDOMINAL AORTIC ANEURYSM SCREENING ABDOMINAL AORTIC ANEURYSM SCREENING [facility] Start: 1955 Abdominal aortic aneurysm screening Abdominal Aortic Aneurysm Screening [facility] Patient Education Colon polyps Diverticulosis Hemorrhoids (DC) [facility] Work Phone: End: 04-30-2024 Rp therapy oral administration NM THERAPY THYROID I-131 Radiology Routine Thyroid cancer (HCC) 1 Occurrences starting 04/01/2023 until 04/30/2024 [facility] Work Phone: Comment on above: 1 Occurrences starti ng 04/01/2023 until 04/30/2024 [facility] Immunizations Immunization Date Immunization Notes Care Provider Fa cility 03-24-2022 SARS-CoV-2 mRNA (fiwzmfhxupk-rktv-vapo ose) vaccine Violeta TINOCO [facility] 10-16-2021 SARS-CoV-2 mRNA (dpehqvaxwwb-aqis-vflv ose) vaccine Violeta TINOCO [facility] [place] 04-17-2021 SARS-CoV-2 (COVID-19 ) mRNA BNT-162b2 vax Violeta AMEZCUAL [facility] [place] 03-27-2021 SARS-CoV-2 (COVID-19 ) mRNA BNT-162b2 vax Violeta AMEZCUAL [facility] NEGATED: Highlighted row has not occurred!10-22-2022 influenza virus vaccine, unspecified formulation Violeta TINOCO [facility] [place] Payers Date Payer Category Payer Self-pay 2020 Medicare [employer]NA MEDICARE [employer] MEDICARE PPO [id number] 2020-Present [phone] [address] [address] [place] [address] PPO [id number] 1959 Medicare [id number] 1955 Unknown [id number] 1955 Unknown [id number] [id number] 1955 Unknown [id number] [id number] 1955 Unknown [id number] 2.16.840.1.539892.3.579.2.593 1955 Unknown [id number] 2.16.840.1.620174.3.579.2.593 1955 Unknown [id number] 2.16.840.1.513395.3.579.2.727 1955 Unknown [id number] 2.16.840.1.914018.3.579.2.727 1955 Unknown [id number] 2.16.840.1.953510.3.579.2.727 1955 Unknown [id number] 2.16.840.1.752341.3.579.2.727 1955 Unknown [id number] 2.16.840.1.480165.3.579.2.125 9 1955 Unknown [id number] 2.16.840.1.410658.3.579.2.125 9 1955 Unknown [id number] 2.16.840.1.541483.3.579.2.125 9 1955 Unknown [id number] 2.16.840.1.368944.3.579.2.125 9 Unknown [id number] 2.16.840.1.271056.3.579.2.531 Unknown [id number] Social History Date Type Detail Facility Start: 10-22-2022 End: 04-01-2023 Tobacco smoking status Ex-smoker (finding) [facility] [place] [facility] Tobacco smoking status Never [facility] [place] Start: 04-01-2023 End: 01-19-2024 Sex Assigned At Male [facility] End: 07-27-1982 History of tobacco use Current smoker [facility] End: 07-27-1982 History of tobacco use Cigarette Smoker [facility] Start: 04-01-2023 End: 01-19-2024 Cigarettes smoked current (pack per day) - Reported 0.5 [facility] Start: 04-01-2023 Tobacco use and exposure Smokeless tobacco non-user [facility] Start: 04-01-2023 End: 01-19-2024 Alcohol intake Ex-drinker (finding) [facility] Start: 1955 Sex Assigned At Not on file [facility] Start: 1955 Sex Assigned At Male Yamilka [facility] Goals Date Patient Goal Desired [...] by: Azam Guillermo MD cc: Gael Thomas [address] [place] [phone] Joey Meadows MD [address] [place] [address] documented in this encounter [facility] 01-19-2024 Note HNO ID: [id number] Author: Azam GUILLERMO MD Service: ? Author [...] by: Azam Guillermo MD cc: Gael Thomas [address] [place] [phone] Joey Meadows MD [address] [place] [phone] [place] [address] 10-05-2023 Miscellaneous Notes Please review and sign if agreeable. Aurea Chu RN documented in this encounter [facility] 09-04-2023 Note Subjective Patient ID: Arvind Rm [...] with respect to the right leg SHIRA Paze No diagnosis found. No orders of the defined types were placed in this encounter. No results found for this or any previous visit (from the past 36 hour(s)). No follow-ups on file. [facility] 08-27-2023 Note HNO ID: [id number] Author: Azam GUILLERMO MD Service: ? Author [...] by: Azam Guillermo MD cc: Gael Thomas [address] [place] [phone] Joey Meadows MD [address] [place] [address] [facility] 08-27-2023 History of Presen t illness Narrative [...] by: Azam Guillermo MD cc: Gael Thomas [address] [place] [phone] Joey Meadows MD [address] [place] [address] documented in this encounter [facility] 06-17-2023 Note HNO ID: [id number] Author: Azam Guillermo MD Service: ? Author [...] by: Azam Guillermo MD cc: Gael Thomas [address] [place] [phone] Joey Meadows MD [address] [place] [address] 06-17-2023 History of Presen t illness Narrative [...] by: Azam Guillermo MD cc: Gael Thomas [address] [place] [phone] Joey Meadows MD [address] [place] [address] documented in this encounter [facility] 06-03-2023 Note HNO ID: [id number] Author: Azam Guillermo MD Service: ? Author Type: Physician Type: Progress Notes Filed: 06/04/2023 1:08 PM Note Text: PATIENT NAME: Arvind Rm PATIENT : 1955 See note at [facility] 06-03-2023 History of Presen t illness Narrative PATIENT NAME: Arvind Rm PATIENT : 1955 See note at [facility] documented in this encounter [facility] 05-22-2023 Note Subjective Patient ID: Arvind [...] past 36 hour(s)). No follow-ups on file. [facility] 05-22-2023 Note Subjective Patient ID: [...] past 36 hour(s)). No follow-ups on file. [facility] 04-28-2023 History and physical note Note Date/Time April 28, 2023 8: 05am [facility] [address] [place] [address] Gastroenterology H&P Signed Patient: Arvind Rm MR#: [id number] : 1955 Acct:[id number] Age/Sex: 68 / M Adm Date: 3 Loc: Room: Type: [facility] Attending Dr: Modesto Guzmán MD Copies [...] <Electronically signed by Modesto Guzmán MD> 04/28/23804 [facility] Work Phone: [phone] Procedure [facility]09-06-2023 Nurse Note* Sherie Reich LPN - 04/01/2023 [...] assist. Sherie Reich LPN [facility]23 NoteHNO ID: [id number] Author: Azam Guillermo MD Service: ? Author [...] soft tissues with c (more content not included)...[facility] 04-01-2023 History of Present illness Narrative* Azam [...] by: Azam Guillermo MD cc: Gael Thomas [facility] [place] [phone] Joey Meadows MD [address] [place] [address] [facility]23 Note03/20/23 1246 Admission Assessment Questions Verify [...] He has no history of HHC or SNF.[facility]08-25-2023 Note Attestation signed by May Gonzales MD at 03/20/2023 4:02 PM Review the CAT scan that was done for the veins. 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 With this, patient can be treated only with anticoagulation with no need for any operative intervention. [facility] Vascular Surgery DAILY PROGRESS NOTE Subjective No [...] Vascular Surgery Service General Surgery Resident, PGY-1 03/20/23[facility]04-12-2023 NoteOPERATIVE NOTE OPERATION DATE: 11/05/2022 [...] within one year. CC: Gael Thomas M.D.[facility] [id number] NoteChief Complaint consultation for screening colonoscopy HPI [...] inactivated - Not Given Patient Refuses SARSCoV2 mRNA(kqgwelmye-bepk-tpcxxd) vac 03/24/2022 Recorded SARSCoV2 mRNA(upfiksocy-rnmj-abxess) vac 10/16/2021 Recorded SARS-CoV-2 (COVID-19) mRNA BNT-162b2 vax 04/17/2021 Recorded SARS-CoV-2 (COVID-19) mRNA BNT-162b2 vax 03/27/[address] [facility] Center[facility] on above:Result Comment: Electronically Signed By: Violeta TINOCO MD\Date and Time Signed: 10/22/22 16:00 EDTEvaluation + Plan note No data available for this section [facility] [place] evaluation note* Diagnosis Thyroid cancer (HCC)- Primary Malignant neoplasm of thyroid gland [facility] Diagnosis Thyroid cancer (HCC)- Primary Malignant neoplasm of thyroid gland documented in this encounter [facility] noteNo InformationNort [employer] Other evaluation noteNo assessment information available [facility] Work Phone: evaluation note* Diagnosis Thyroid cancer (HCC)- Primary Malignant neoplasm of thyroid gland [facility]* Diagnosis Thyroid cancer (HCC)- Primary Malignant neoplasm of thyroid gland documented [facility]* Diagnosis Thyroid cancer (HCC)- Primary Malignant neoplasm of thyroid gland documented [facility]* Diagnosis Thyroid cancer (HCC)- Primary Malignant neoplasm of thyroid gland documented [facility]* Diagnosis Thyroid cancer (HCC)- Primary Malignant neoplasm of thyroid gland [facility]* Diagnosis Thyroid cancer (HCC)- Primary Malignant neoplasm of thyroid gland documented in this encounter [facility] general Narrative - Reported* Type Description Date Surgical History thyroidectomy [employer] Other Hospital Discharge instructions No data available for this section [facility] [place] [facility] Discharge instructions Additional Instructions DISCHARGE INSTRUCTIONS [...] years. -Follow up with PCP. -Office number [phone]. [facility] Work Phone: Progress note No data available for this section [facility] [place] Reason for referral (narrative)* Diagnostic Procedure Only (Routine) - Pending Review Specialty Diagnoses / Procedures Referred By Amalia t Referred To Contact MOLECULAR & FUNCTIONAL IMAGING Diagnoses Thyroid cancer (HCC) Procedures NM THERAPY THYROID I-131 RP THERAPY ORAL ADMINISTRATION Azam Guillermo MD [address] [place] [address] [place] [address] Molecular & Functional Imaging [address] [place] [id number] Referral ID Status Reason Start Date Expiration Date Visits Requested Visits Authorized [id number] Pending Review Auto-Generat ed Referral 04/01/2023 04/30/2024 1 1 [facility] Summary Purpose Family History No Family [...] team informatio n (unrecognized section and content) Dish Maker Relationship Specialty Start Date End Date Gael Thomas MD [address] [place] [address] PCP - General Family Medicine 04/01/23 Dish Maker Relationship Specialty Start Date End Date Gael Thomas MD [address] [place] [address] PCP - General Family Medicine 04/01/23 Dish Maker Relationship Specialty Start Date End Date Gael Thomas MD [address] [place] [address] PCP - General Family Medicine 04/01/23 Team Status: Active Member Role Status Dates Gael Thomas MD Primary Care Provider Active Team Status: Inactive Member Role Status Dates Modesto Guzmán MD Attending Provider Active Gael Thomas MD Primary Care Provider Active Dish Maker Relationship Specialty Start Date End Date Gael Thomas MD [address] [place] [phone] PCP - General Family Medicine 04/01/23 Dish Maker Relationship Specialty Start Date End Date Gael Thomas MD [address] [phone] PCP - General Family Medicine 04/01/23 Team Status: Inactive Member Role Status Dates Temo Guillermo MD Attending Provider Active Gael Thomas MD Primary Care Provider Active Dish Maker Relationship Specialty Start Date End Date Gael Thomas MD [address] [phone] PCP - General Family Medicine 04/01/23 Dish Maker Relationship Specialty Start Date End Date Gael Thomas MD [address] [phone] PCP - General Family Medicine 04/01/23 Dish Maker Relationship Specialty Start Date End Date Gael Thomas MD [address] [place] [address] PCP - General Family Medicine 04/01/23 Dish Maker Relationship Specialty Start Date End Date Gael Thomas MD [address] [phone] PCP - General Family Medicine 04/01/23 Dish Maker Relationship Specialty Start Date End Date Gael Thomas MD [address] [facility] [place] [address] PCP - General Family Medicine 04/01/23 (unrecognized sect ion and content) No Status Records FoundNo Status Records FoundNo Status Records FoundNo Status Records FoundNo Status Records FoundNo Status Records Found INFORMATION SOURCE (unrecogn ized section and content) DATE CREATED AUTHOR 11/15/2022 [facility] DATE CREATED AUTHOR AUTHOR'S ORGANIZ ATION 01/29/2023 [facility] DATE CREATED AUTHOR AUTHOR'S ORGANIZ ATION 08/08/2023 [facility] DATE CREATED AUTHOR AUTHOR'S ORGANIZ ATION 09/09/2023 [facility] DATE CREATED AUTHOR AUTHOR'S ORGANIZ ATION 11/19/2023 [facility] dical [facility] EPIC DATE CREATED AUTHOR AUTHOR'S ORGANIZ ATION 01/30/2024 [facility] Source Comments (unrecognize d section and content) In the event this informatio n is protected by the Federal Confidentiality of Alcohol and Drug Abuse Patient Records regulations: The Federal rules restrict any use of the information to criminally investigate or prosecute any alcohol or drug abuse patient.[facility] the event this information is protected by the Federal Confidentiality of Alcohol and Drug Abuse Patient Records regulations: The Federal rules restrict any use of the information to criminally investigate or prosecute any alcohol or drug abuse patient.[facility] the event this information is protected by the Federal Confidentiality of Alcohol and Drug Abuse Patient Records regulations: The Federal rules restrict any use of the information to criminally investigate or prosecute any alcohol or drug abuse patient.[facility] Center[facility] the event this information is protected by the Federal Confidentiality of Alcohol and Drug Abuse Patient Records regulations: The Federal rules restrict any use of the information to criminally investigate or prosecute any alcohol or drug abuse patient.[facility] Center[facility] the event this information is protected by the Federal Confidentiality of Alcohol and Drug Abuse Patient Records regulations: The Federal rules restrict any use of the information to criminally investigate or prosecute any alcohol or drug abuse patient.[facility] Center[facility] the event this information is protected by the Federal Confidentiality of Alcohol and Drug Abuse Patient Records regulations: The Federal rules restrict any use of the information to criminally investigate or prosecute any alcohol or drug abuse patient.[facility] Center[facility] the event this information is protected by the Federal Confidentiality of Alcohol and Drug Abuse Patient Records regulations: The Federal rules restrict any use of the information to criminally investigate or prosecute any alcohol or drug abuse patient.[facility] Center[facility] the event this information is protected by the Federal Confidentiality of Alcohol and Drug Abuse Patient Records regulations: The Federal rules restrict any use of the information to criminally investigate or prosecute any alcohol or drug abuse patient.[facility] Center[facility] the event this information is protected by the Federal Confidentiality of Alcohol and Drug Abuse Patient Records regulations: The Federal rules restrict any use of the information to criminally investigate or prosecute any alcohol or drug abuse patient.[facility] Center[facility] the event this information is protected by the Federal Confidentiality of Alcohol and Drug Abuse Patient Records regulations: The Federal rules restrict any use of the information to criminally investigate or prosecute any alcohol or drug abuse patient.[facility] Center[facility] the event this information is protected by the Federal Confidentiality of Alcohol and Drug Abuse Patient Records regulations: The Federal rules restrict any use of the information to criminally investigate or prosecute any alcohol or drug abuse patient.[facility] Center[facility] the event this information is protected by the Federal Confidentiality of Alcohol and Drug Abuse Patient Records regulations: The Federal rules restrict any use of the information to criminally investigate or prosecute any alcohol or drug abuse patient.[facility] CenterIn the event this information is protected by the Federal Confidentiality of Alcohol and Drug Abuse Patient Records regulations: The Federal rules restrict any use of the information to criminally investigate or prosecute any alcohol or drug abuse patient.[facility] Center[facility] the event this information is protected by the Federal Confidentiality of Alcohol and Drug Abuse Patient Records regulations: The Federal rules restrict any use of the information to criminally investigate or prosecute any alcohol or drug abuse patient.[facility] Center[facility] the event this information is protected by the Federal Confidentiality of Alcohol and Drug Abuse Patient Records regulations: The Federal rules restrict any use of the information to criminally investigate or prosecute any alcohol or drug abuse patient.[facility] CenterIn the event this information is protected by the Federal Confidentiality of Alcohol and Drug Abuse Patient Records regulations: The Federal rules restrict any use of the information to criminally investigate or prosecute any alcohol or drug abuse patient.[facility] Reason for Visit (unrecogniz ed section and content) Reason Comments Consult Reason Onset Date Comments Refill Request 05/08/2023 Reason Comments Thyroid Cancer Specialty Diagnoses / Procedures Referred By Contac t Referred To Contact Diagnoses Thyroid cancer (HCC) Procedures THYROTROPIN INJECTION Azam Guillermo MD [address] [place] [address] DR [place] [address] [facility] [place] [address] Referral ID Status Reason Start Date Expiration Date V isits Requested Visits Authorized [id number] Authorized 04/02/2023 07/26/2023 99 [phone] Reason Comments [...] BE BASED ON THE PRIMARY CLINICAL RECORDS. [facility] provides no warranty or guarantee of the accuracy or completeness of information in this document.
[2024-06-29 04:10] LABS: PSA, Free 0.71 ng/mL
== END 2024-06-28 06:40 | disposition home or self-care (01) ==
LOC: LAB 06:40
PROVIDERS: PCP Family Medicine; Visit Provider Family Medicine
DX: R97.20 Elevated prostate specific antigen [PSA] (principal)
CPT/HCPCS: 36415; 84153; 84154

== ENCOUNTER 2024-08-23 12:15 | Outpatient (OUT) | payer MEDICARE, SELFPAY ==
--- OUTSIDE RECORDS SUMMARY | 2024-08-23 12:20 | XMS_ITS | CCD ---
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 Role Phone Gael Thomas Primary Care [...] Unavailable HOY ., DR MAYO Consulting Unavailable OSBURN, DR DIANA Gonsalez Consulting Unavailable HOY ., DR MAYO Admitting Unavailable HOY ., DR MAYO Attending Unavailable HOY ., DR MAYO Primary Care Unavailable HOY ., DR MAYO Consulting Unavailable NILLVioleta Attending Unavailable NILL, Violeta Albert Attending Unavailable HoyGael Referring Unavailable NILL, Violeta R Attending Unavailable NILL, Violeta Albert Referring Unavailable NILL, Violeta Albert Attending Unavailable Hoy Gael CHIN Primary Care Provider [phone] Modesto Guzmán Unavailable MD Modesto Guzmán Attending Provider MD Gael Thomas Primary Care Provider [phone] MD Modesto Guzmán Attending Provider [phone] MD Gael Thomas Primary Care Provider [phone] MD Temo Guillermo Attending Provider Asaad, Imad Admitting Unavailable Hoy, Gael M Primary Care Unavailable Asaad, Imad Attending Unavailable Temo Guillermo Attending Unavailable Temo Guillermo Admitting Unavailable Hoy, Gael M Primary Care Unavailable LISS JI Referring Unavailable LISS JI Attending Unavailable KOJO FREITAS Referring Unavailable NAZZAL, MUNIER Admitting Unavailable NAZZAL, MUNIER Attending Unavailable BRIAN MANZO Attending Unavailable ANNALISE MCCRAY Referring Unavailable LGEN DUPONT Referring Unavailable NAZZAL, MUNIER Referring Unavailable NAZZAL, MUNIER Referring Unavailable Gael Thomas MD Primary Care Provider [phone] JOEY MEADOWS Attending Unavailable JOEY MEADOWS Attending Unavailable JOEY MEADOWS Attending Unavailable JOEY MEADOWS Attending Unavailable Gael Thomas MD Primary Care Provider [phone] Gael Thomas MD Primary Care Provider [phone] Azam GUILLERMO Attending Unavailable HOY, GAEL M [...] Medication Allergies] Propensity to adverse reactions (disorder) [facility] Repository (20 sources) Clindamycin; Translations: [CLINDAMYCIN] Drug Allergy 3 [facility] (1 source) Clindamycin Drug Allergy 3 [facility] Repository (1 source) Shellfish; Translations: [SHELLFISH DERIVED] Propensity to adverse reactions to drug (disorder) 3 [facility] Repository (1 source) Shellfish Propensity to adverse reactions 3 [facility] Healthcare Medications Current Medications Medication Drug Class(es) Dates Sig (Normalized) Sig (Original) apixaban 5 mg oral tablet (18 sources) Factor Xa Inhibitor Start: 03-20-2023 End: 07-04-2023 take 1 tablet by mouth every twelve hours Eliquis 5 MG tablet Take 5 mg by mouth every 12 (twelve) hours. 03/20/2023 Active Start: 03-20-2023 End: 01-19-2024 take 1 tablet by mouth every twelve hours apixaban (ELIQUIS) 5 mg tab(s) Take 5 mg by mouth every 12 hours. 0 03/20/2023 01/19/2024 Discontinued (Course of therapy completed) Comment on above: Take 5 mg by mouth. Take 5 mg by mouth e very 12 hours. Ascorbic Acid (1 source) Vitamin C Vitamin C Active calcium carbonate 1500 mg oral tablet (1 source) take 1 tablet by mouth in the morning calcium carbonate (Os-Sadi) 600 MG tablet Take 600 mg by mouth in the morning. Active cefuroxime 500 mg oral tablet (1 source) Cephalosporin Antibacterial take 1 tablet by mouth every twelve hours Cefuroxime Axetil 500 MG 1 tablet Orally Twice a day for 10 day(s) Active famotidine 20 mg oral tablet (18 sources) Histamine-2 Receptor Antagonist Start: 023 End: 024 take 1 tablet by mouth once daily at bedtime famotidine (PEPCID) 20 mg tablet Take 1 tablet by mouth daily at bedtime. 08/17/2023 Active Comment on above: Take 20 mg by mouth. Take 1 tablet by mireya th daily at bedtime. levothyroxine sodium 0.137 mg oral tablet (20 sources) l-Thyroxine Start: 025 take 1 tablet by mouth once daily before breakfast levothyroxine (SYNTHROID) 137 mcg tablet Indications: Thyroid cancer (HCC) Take 1 tablet by mouth daily before breakfast. 30 tablet 2 08/18/2024 Active Start: 04-01-2023 End: 08-17-2024 take 1 tablet by mouth once daily levothyroxine (SYNTHROID) 125 mcg tablet Take 1 tablet by mouth once daily. 90 tablet 2 07/22/2024 08/17/2024 Discontinued (Dosage adjustment) take 5 tablets by mo uth before mealtime levothyroxine (Synthroid, Levoxyl) 25 MCG tablet Take 125 mcg by mouth in the morning. Take before meals. Active Comment on above: Take 1 tablet by mireya th once daily. Start 06/04/23 take 1 tablet by mireya th once daily Take 1 tablet by mireya th once daily. Magnesium (1 source) take 1 tablet by mouth once daily Magnesium 250 MG 1 tablet with a meal Orally Once a day Active magnesium oxide (Mag-Ox) 100 mg split tablet (1 source) magnesium oxide (Mag-Ox) 100 mg split tablet Take 250 mg by mouth in the morning. Active Multi For Him 50+ (1 source) Multi For Him 50 + Active Multi Vitamins oral tablet (1 source) Start: 10-23-19 take 1 tablet by mouth once daily Multi Vitamins oral tablet 1 tab(s), Oral, Daily, Refill(s) 0 Start Date: 10/22/22 Status: Ordered Multiple Vitamin (MULTI-VITAMINS PO) (1 source) Start: 10-23-19 take 1 tablet by mouth in the morning Multiple Vitamin (MULTI-VITAMINS PO) Take 1 tablet by mouth in the morning. 10/22/2022 Active mupirocin 0.02 mg/mg topical ointment (1 source) RNA Synthetase Inhibitor Antibacterial Start: 06-02-20 Mupirocin 2 % 1 application to affected area Externally once per day for 7 days May, Active naproxen sodium 550 mg oral tablet (1 source) Nonsteroidal Anti-inflammatory Drug take 1 tablet by mouth every twelve hours Anaprox DS 550 MG 1 tablet Orally Twice a day for 10 days Active omeprazole 40 mg delayed release oral capsule (19 sources) Proton Pump Inhibitor Start: 05-25-20 End: 10-18-19 omeprazole (PRILOSEC) 40 mg capsule Take 40 mg by mouth. 05/25/2023 Active Comment on above: Take 40 mg by mouth. polyethylene glycol 3350 [id number] mg / potassium chloride 2970 mg / sodium bicarbonate 6740 mg / sodium chloride 5860 mg / sodium sulfate 18530 mg powder for oral solution (1 source) Osmotic Laxative Start: 01-20-20 PEG-3350/Electrolyt es 236 GM as directed Orally once daily for 1 days Dec, Active simvastatin 20 mg oral tablet (12 sources) HMG-CoA Reductase Inhibitor Start: 12-28-19 take 1 tablet by mouth once daily at bedtime simvastatin (ZOCOR) 20 mg tablet Take 20 mg by mouth daily at bedtime. 12/28/2023 Active take 1 tablet by mouth at bedtim e simvastatin (Zocor) 5 MG tablet Take 5 mg by mouth at bedtime Active Vitamin D3 (1 source) Vitamin D3 Activ e Zinc (1 source) Zinc 15 Active Completed/Discontinued Medications Medication Drug Class(es) Dates Sig (Normalized) Sig (Original) cefTRIAXone (1 source) Cephalosporin Antibacterial Start: 0 Rocephin 500 mg May, 500 mg liothyronine sodium 0.025 mg oral tablet (12 sources) l-Triiodothyronine End: 4 liothyronine (CYTOMEL) 25 mcg tablet Comment on above: 1 tablet on an empty stomach Orally BID pilocarpine hydrochloride 5 mg oral tablet (12 sources) Cholinergic Receptor Agonist Start: 3 End: 4 take 1 tablet by mouth three times daily pilocarpine (SALAGEN, PILOCARPINE,) 5 mg tablet Take 1 tablet by mouth three times daily. 15 tablet 0 04/01/2023 08/27/2023 Discontinued (Discontinued by another Health Care Provider) Comment on above: Take 1 tablet by mireya th three times daily. prochlorperazine 10 mg oral tablet (12 sources) Phenothiazine Start: 3 End: 4 take 1 tablet by mouth every eight hours as needed prochlorperazine (COMPAZINE) 10 mg tablet Take 1 tablet by mouth every 8 hours as needed. 15 tablet 1 04/01/2023 08/27/2023 Discontinued (Discontinued by another Health Care Provider) Comment on above: Take 1 tablet by mireya th every 8 hours as needed. thyrotropin zi 0.9 mg injection (THYROGEN) (2 sources) Start: 4 End: 4 inject 0.9 mg by intramuscular injection once 0.9 mg, INTRAMUSCULAR, ONCE, 1 dose, On Thu07/05/24 at 0930, REFRIGERATE Start: 07-04-2024 End: 07-04-2024 inject 0.9 mg by intramuscular injection once 0.9 mg, INTRAMUSCULAR, ONCE, 1 dose, On Thu07/04/24 at 0930, REFRIGERATE Problems Active Problems Problem Classification Problem Date Documented Da te Episodic/Chronic Cancer of thyroid (20 sources) Malignant tumor of thyroid gland; Translations: [Malignant neoplasm of thyroid gland] Onset: 3 04-01-2023 Chronic Disorders of lipid metabolism (2 sources) Hyperlipidemia; Translations: [Hyperlipidemia, unspecified] Onset: 3 10-10-2022 Chronic Diverticulosis and diverticulitis (1 source) Diverticulosis of large intestine without perforation or abscess without bleeding; Translations: [DVRTCLOS LG INT NO PERF/ABSC W/O BL] Onset: 3 Chronic Esophageal disorders (2 sources) Laryngopharyngeal reflux; Translations: [Gastro-esophageal reflux disease without esophagitis] Onset: 3 07-19-2024 Chronic Essential hypertension (2 sources) Essential hypertension; Translations: [Essential (primary) hypertension] Onset: 2 10-10-2022 Chronic Other and unspecified benign neoplasm (1 source) Polyp of colon; Translations: [POLYP OF COLON] Onset: 3 Episodic Other and unspecified benign neoplasm (1 source) Benign neoplasm of ascending colon; Translations: [BENIGN NEOPLASM OF ASCENDING COLON] Onset: 3 Episodic Other and unspecified benign neoplasm (1 [...] screening for malignant neoplasm of colon] Onset: 2 Episodic Other skin disorders (4 sources) Localized swelling, mass and lump, neck; Translations: [LOCALIZED SWELLING MASS AND LUMP NECK] Onset: 3 Episodic Phlebitis; thrombophlebitis and thromboembolism (2 sources) 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; Translations: [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] Onset: 3 Chronic Residual codes; unclassified (1 source) Family history of malignant neoplasm of digestive organ; Translations: [Family history of malignant neoplasm of digestive organs] Onset: 3 Episodic Residual codes; unclassified (1 source) Family history of cancer of colon 10-10-2022 Episodic Residual codes; unclassified (1 source) Family history of malignant neoplasm of digestive organs; Translations: [FAM HX MALIG NEOPLASM DIGESTIV ORGN] Onset: 3 Episodic Screening and history of mental health and substance abuse codes (1 source) Personal history of nicotine dependence; Translations: [PERSONAL HISTORY OF NICOTINE DEPEND] Onset: 3 Episodic Thyroid disorders (6 sources) Nontoxic single thyroid nodule; Translations: [Thyroid nodule] Onset: 3 Chronic Unclassified (1 source) Patient encounter status 10-22-2022 Unclassified (1 source) Encounter for screening for malignant neoplasm of colon; Translations: [Encounter for screening for malignant neoplasm of colon] Onset: 3 Past or Other Problems Problem Classification Problem Date Documented Da te Episodic/Chronic Diabetes mellitus without complication (1 source) Other abnormal glucose; Translations: [OTHER ABNORMAL GLUCOSE] Onset: 02-25-2022 Episodic Other skin disorders (1 source) Mass of neck; Translations: [Localized swelling, mass and lump, neck] Onset: 12-16-2022 12-16-2022 Episodic Other upper respiratory disease (1 source) Hoarse; Translations: [Dysphonia] Onset: 12-29-2022 12-29-2022 Episodic Other upper respiratory disease (1 source) Lesion of vocal cord; Translations: [Other diseases of vocal cords] Onset: 05-25-2023 05-25-2023 Episodic Phlebitis; thrombophlebitis and thromboembolism (5 sources) Personal history of other venous thrombosis and embolism; Translations: [Acute embolism and thrombosis of unspecified deep veins of right proximal lower extremity] Onset: 03-19-2023 Episodic Residual codes; unclassified (1 source) Family history of epilepsy and other diseases of the nervous system; Translations: [FAM HX EPILEPSY OTH DZ NERV SYS] Onset: 02-25-2022 Episodic Thyroid disorders (1 source) Mass of thyroid gland; Translations: [Disorder of thyroid, unspecified] Onset: 12-29-2022 12-29-2022 Episodic Results Test Name Value Interpretation Reference Range Facility Javon 08-17-2024 CNPN Telephone (RADTSA) ARVIND RM ([id number]) 1955 Date Time Provider Department 08/17/24 Azam GUILLERMO During your visit today, we recorded the following information about you: Sherie Reich RN 08/17/2024 4:09 PM Signed I notified Arvind that per [facility] lab client services states there's still a national shortage for the Thyroglobulin interference reagent. Dr. Guillermo would like to increase his current Synthroid dose from 125mcg daily to 137mcg daily. Dr. Guillermo would like to schedule a follow up with labs in 2 months. Arvind verbalized understanding of the above. PSS: please schedule follow up in 2 months with labs prior. Dr. Guillermo: Please sign pended lab orders and new prescription. Thanks ELIJAH Kendrick Trisha 08/18/2024 2:21 PM Addendum Arvind is scheduled for his labs on 10/06/24 at 9:00AM and his follow up with Dr Guillermo on 10/13/24at 9:15AM Valeria Ellington PSS Sherie Reich RN 08/18/2024 11:[address] Guillermo please sign pended orders. Sherie Reich RN Allergies As of Date: 08/17/2024 Noted Allergy Reaction CLINDAMYCIN 04/01/2023 2 - Rash Date Reviewed: 07/05/2024 Reviewed by: Sherie Reich RN - Fully Assessed Reason for Visit: Appointment [186] Patient Update [1234] Primary Visit Diagnosis:Thyroid cancer (HCC) [C73] Order(s):THYROID STIMULATING HORMONE [SQTSH] Order #: [id number] FUTURE T4/THYROXINE [SQT4] Order #: [id number] FUTURE THYROGLOBULIN, SERUM WITH REFLEX TO IA OR LC-MS/MS [SQTHYRORF] Order #: [id number] FUTURE levothyroxine (SYNTHROID) 137 mcg tabletTake 1 tablet by mouth daily before breakfast.Disp: 30 tabletRfl: 2 Prescriptions as of 08/18/2024 - levothyroxine (SYNTHROID) 137 mcg tablet Take 1 tablet by mouth daily before breakfast. - simvastatin (ZOCOR) 20 mg tablet Take 20 mg by mouth daily at bedtime. - famotidine (PEPCID) 20 mg tablet Take 1 tablet by mouth daily at bedtime. - omeprazole (PRILOSEC) 40 mg capsule Take 40 mg by mouth. Problem List As Of Date 08/17/2024 Noted Resolved Thyroid cancer (HCC) [C73] 04/02/2023 Prescriptions ordered this encounter Disp Refills Start End LEVOTHYROXINE 137 MCG TABLET 30 t* 2 08/18/2024 Route: ORAL Sig: Take 1 tablet by mouth daily before breakfast. Medications Discontinued During This Encounter Prescriptions - levothyroxine (SYNTHROID) 125 mcg tablet (Discontinued) Take 1 tablet by mouth once daily. Encounter Status:Closed by Azam [facility]LLERMO [facility] Telephone (RADTSA) SUJEYARVIND L ([id number]) 1955 M Date Time Provider Department 07/15/24 Azam GUILLERMO During your visit today, we recorded the following information about you: Sherie Reich, RN 07/15/2024 1:47 PM Signed I called and spoke with Jd at [facility] lab client services. I asked if the Thyroglobulin interference testing drawn 07/04/24 (pre Thyrogen injection) and 07/08/24 (post Thyrogen injection) can be replaced with Thyroglobulin reflex since the interference reagent is currently on a national shortage. She states she will notify our office with an update bebo. Arvind has a follow up currently scheduled with Dr. Guillermo 07/18/[address] Guillermo: Please sign pended Thyrogen reflex orders. I notified Jd that we will not cancel the interference orders until we find out if they can be replaced with the reflex orders. ELIJAH Kendrick Ariana E, RN 07/15/2024 3:22 PM Signed I update Arvind and his of the pending thyroglobulin results. I told them nursing would call him 07/18/24 a.m. to notify him if he should keep his follow up scheduled at 9:00 or if we need to reschedule. They are both thankful for the call and explanation. ELIJAH Kendrick Angela, RN 07/18/2024 7:38 AM Signed Call placed to pt to notify pt that results are not back yet. LM requesting pt CB to notify us that he did receive this message. PSS- please cancel follow up this am. ELIJAH Hernadez Trisha 07/18/2024 7:54 AM Signed Appointment canceled Valeria Ellington PSS Allergies As of Date: 07/15/2024 Noted Allergy Reaction CLINDAMYCIN 04/01/2023 2 - Rash Date Reviewed: 07/05/2024 Reviewed by: Sherie Reich RN - Fully Assessed Reason for Visit: Orders [681] Primary Visit Diagnosis:Thyroid cancer (HCC) [C73] Order(s):THYROGLOBULIN , SERUM WITH REFLEX TO IA OR LC-MS/MS [SQTHYRORF] Order #: [id number] FUTURE THYROGLOBULIN, SERUM WITH REFLEX TO IA OR LC-MS/MS [SQTHYRORF] Order #: [id number] FUTURE Prescriptions as of 07/18/2024 - simvastatin (ZOCOR) 20 mg tablet Take 20 mg by mouth daily at bedtime. - levothyroxine (SYNTHROID) 125 mcg tablet Take 1 tablet by mouth once daily. - famotidine (PEPCID) 20 mg tablet Take 1 tablet by mouth daily at bedtime. - omeprazole (PRILOSEC) 40 mg capsule Take 40 mg by mouth. Problem List As Of Date 07/15/2024 Noted Resolved Thyroid cancer (HCC) [C73] 04/02/2023 Encounter Status:Closed by VALERIA ELLINGTON on 07/18/24 [facility] Javon 07-08-2024 CNPN Telephone (RADTSA) ARVIND RM ([id number]) 1955 Date Time Provider Department 07/08/24 Azam GUILLERMO CHAUA During your visit today, we recorded the following information about you: Allergies As of Date: 07/08/2024 Noted Allergy Reaction CLINDAMYCIN 04/01/2023 2 - Rash Date Reviewed: 07/05/2024 Reviewed by: Sherie Reich, RN - Fully Assessed Reason for Visit: Orders [681] Primary Visit Diagnosis:Thyroid cancer (HCC) [C73] Order(s):THYROGLOBULIN BY LC-MS/MS, SERUM OR PLASMA, FOR [facility]IBODY [facility]ENCE [facility] Order #: [id number] FUTURE Prescriptions as of 07/08/2024 - simvastatin (ZOCOR) 20 mg tablet Take 20 mg by mouth daily at bedtime. - levothyroxine (SYNTHROID) 125 mcg tablet Take 1 tablet by mouth once daily. - famotidine (PEPCID) 20 mg tablet Take 1 tablet by mouth daily at bedtime. - omeprazole (PRILOSEC) 40 mg capsule Take 40 mg by mouth. Problem List As Of Date 07/08/2024 Noted Resolved Thyroid cancer (HCC) [C73] 04/02/2023 Encounter Status:Closed by SHERIE REICH on 07/08/24 [facility] Sukh 07-05-2024 CNOV Office Visit (RADTSA ) ARVIND RM ([id number]) 1955 M Date Time Provider Department 07/05/24 9:00 AM LAB/PORT RADT MELISSA CRUZ During your visit today, we recorded the following information about you: Temperature Pulse Respiration Blood pressure 98.5 degrees 68/minute 16/minute 137/81 Sherie Reich RN 07/05/2024 9:50 AM Signed Patient reminded of lab appointment 07/08/24. Sherie Reich RN Referring Provider: Azam GUILLERMO [[id number]] Allergies As of Date: 07/05/2024 Noted Allergy Reaction CLINDAMYCIN 04/01/2023 2 - Rash Date Reviewed: 07/05/2024 Reviewed by: Sherie Reich RN - Fully Assessed Reason for Visit: Thyroid Cancer [879] Primary Visit Diagnosis:Thyroid cancer (HCC) [C73] Order(s):[] thyrotropin zi 0.9 mg injection (THYROGEN)Disp: Rfl: Prescriptions as of 07/05/2024 - simvastatin (ZOCOR) 20 mg tablet Take 20 mg by mouth daily at bedtime. - levothyroxine (SYNTHROID) 125 mcg tablet Take 1 tablet by mouth once daily. - famotidine (PEPCID) 20 mg tablet Take 1 tablet by mouth daily at bedtime. - omeprazole (PRILOSEC) 40 mg capsule Take 40 mg by mouth. Problem List As Of Date 07/05/2024 Noted Resolved Thyroid cancer (HCC) [C73] 04/02/2023 Prescriptions ordered this encounter Disp Refills Start End THYROTROPIN ZI 0.9 MG INTRAMUSCULA* 07/05/2024 07/05/2024 Route: INTRAMUSCULA Encounter Status:Closed by SHERIE REICH on 07/05/24 [facility] Sukh 07-04-2024 CNOV Office Visit (DEYATSA ) ARVIND RM ([id number]) 1955 M Date Time Provider Department 07/04/24 9:15 AM LAB/PORT DEYAT MELISSA CRUZ During your visit today, we recorded the following information about you: Temperature Pulse Respiration Blood pressure 97.6 degrees 83/minute 16/minute 147/88 Weight 83.5 kg Referring Provider: Azam GUILLERMO [[id number]] Allergies As of Date: 07/04/2024 Noted Allergy Reaction CLINDAMYCIN 04/01/2023 2 - Rash Date Reviewed: 07/04/2024 Reviewed by: Sherie Reich RN - Fully Assessed Reason for Visit: Thyroid Cancer [879] Primary Visit Diagnosis:Thyroid cancer (HCC) [C73] Order(s):[] thyrotropin zi 0.9 mg injection (THYROGEN)Disp: Rfl: Prescriptions as of 07/04/2024 - simvastatin (ZOCOR) 20 mg tablet Take 20 mg by mouth daily at bedtime. - levothyroxine (SYNTHROID) 125 mcg tablet Take 1 tablet by mouth once daily. - famotidine (PEPCID) 20 mg tablet Take 1 tablet by mouth daily at bedtime. - omeprazole (PRILOSEC) 40 mg capsule Take 40 mg by mouth. Problem List As Of Date 07/04/2024 Noted Resolved Thyroid cancer (HCC) [C73] 04/02/2023 Prescriptions ordered this encounter Disp Refills Start End THYROTROPIN ZI 0.9 MG INTRAMUSCULA* 07/04/2024 07/04/2024 Route: INTRAMUSCULA Encounter Status:Closed by SHERIE REICH on 07/04/24 Normal [facility] T4 SerPl-mCncon 07-04-2024 T4 [Mass/Vol] 7.4 ug/dL Normal 5.5-10.2 [facility] Comment on above: Order Comment: Speci men Type: BLOOD SPECIMEN Ordering Facility: [facility] Address: [address] [place] [address] Performed By: #### 3 016-3, 3026-2 #### [facility] CLIA [id number] [address] [place], [place] [address] [id number] [place] TSH SerPl-aCncon 07-04-2024 TSH Qn 8.350 m[IU]/L High 0.270-4.200 [facility] Comment on above: Order Comment: Speci men Type: BLOOD SPECIMEN Ordering Facility: [facility] Address: [address] [place] [address] Performed By: #### 3 016-3, 3026-2 #### [facility] CLIA [id number] [address] [place] [address] [place] CNPNon 06-28-2024 CNPN Telephone ([employer]) ARVIND RM ([id number]) 1955 M Date Time Provider Department 06/28/24 Azam GUILLERMO During your visit today, we recorded the following information about you: Sherie Reich RN 06/28/2024 8:17 AM Signed Pharmacist: Will you please enter Thyrogen orders and route to Dr. Guillermo. Patient is scheduled 07/04 and 07/05. Thanks Sherie Reich RN Allergies As of Date: 06/28/2024 Noted Allergy Reaction CLINDAMYCIN 04/01/2023 2 - Rash Date Reviewed: 01/19/2024 Reviewed by: Sherie Reich LPN - Fully Assessed Reason for Visit: Orders [681] Prescriptions as of 06/28/2024 - simvastatin (ZOCOR) 20 mg tablet Take 20 mg by mouth daily at bedtime. - levothyroxine (SYNTHROID) 125 mcg tablet Take 1 tablet by mouth once daily. - famotidine (PEPCID) 20 mg tablet Take 1 tablet by mouth daily at bedtime. - omeprazole (PRILOSEC) 40 mg capsule Take 40 mg by mouth. Problem List As Of Date 06/28/2024 Noted Resolved Thyroid cancer (HCC) [C73] 04/02/2023 Encounter Status:Closed by LINDA MENDEZ on 06/28/24 Normal [facility] CNOVon 01-19-2024 CNOV Office Visit (RADTSA ) MARIO ALBERTOARVIND DARBY ([id number]) 1955 M Date Time Provider Department 01/19/24 [...] by: Azam Guillermo MD cc: Gael Thomas [address] [place] [phone] Joey Meadows MD [address] [place] [id number] Allergies As of Date: 01/19/2024 Noted Allergy Reaction CLINDAMYCIN 04/01/2023 2 - Rash Date Reviewed: 01/19/2024 Reviewed by: Sherie Reich LPN - Fully Assessed Reason for Visit: Thyroid Cancer [879] Primary Visit Diagnosis:Thyroid cancer (HCC) [C73] Order(s):THYROGLOBULIN BY LC-MS/MS, SERUM OR PLASMA, FOR THYROGLOBULIN ANTIBODY INTERFERENCE [SQTGMSMS] Order #: [id number] FUTURE THYROGLOBULIN BY LC-MS/MS, SERUM OR PLASMA, FOR THYROGLOBULIN ANTIBODY INTERFERENCE [SQTGMSMS] Order #: [id number] FUTURE T4/THYROXINE [SQT4] Order #: [id number] FUTURE THYROID STIMULATING HORMONE [SQTSH] Order #: [id number] FUTURE Prescriptions as of 01/29/2024 - simvastatin (ZOCOR) 20 (more content not included)... Normal [facility] T4 SerPl-mCncon 01-05-2024 T4 [Mass/Vol] 6.9 ug/dL Normal 5.5-10.2 [facility] Comment on above: Order Comment: Speci men Type: BLOOD SPECIMEN Ordering Facility: [facility] Address: [address] [place] [address] Performed By: #### 3 016-3, 3026-2 #### [facility] CLIA [id number] [address] [place], [place] [address] [address] [place] THYROGLOBULIN BY LC-MS/MS, S JOHN OR PLASMA, FOR THYROGLOBULIN ANTIBODY INTERFERENCEon 01-05-2024 THYROGLOBULIN, LC-MS/MS <0.5 Low 1.3-31.8 [facility] Comment on above: Order Comment: Filemon mix Type: BLOOD SPECIMEN Ordering Facility: [facility] Address: [address] [place] [address] Result Comment: Results obtained with different test [...] developed and its performance characteristics determined by [facility]. It has not been cleared or approved by the US Food and Drug Administration. This test was performed in a CLIA certified laboratory and is intended for clinical purposes. Performed By: [facility] [address] [place] [address] [employer] Reporter: Luis Herrera MD, PhD CLIA Number: [id number] Performed By: #### 3 016-3, 3026-2 #### [facility] CLIA [id number] [address] [place] [address] [place] TSH SerPl-aCncon 01-05-2024 TSH Qn 2.390 m[IU]/L Normal 0.270-4.200 [facility] Comment on above: Order Comment: Filemon mix Type: BLOOD SPECIMEN Ordering Facility: [facility] Address: [address] [place] [address] Performed By: #### 3 016-3, 3026-2 #### [facility] CLIA [id number] [address] [place] [address] [place] Follow-Upon 09-04-2023 Follow-Up [id number] Arvind Rm 1955 Date Provider Department [place] 09/04/2023 [facility] No family history on file Level of Service:74780 [place] OFFICE/OUTPATIENT ESTABLISHED LOW MDM [address] [facility] CNOVon 08-27-2023 CNOV Office Visit (RADTSA ) ARVIND RM ([id number]) 1955 M Date Time Provider Department 08/27/23 10:00 AM [...] by: Azam Guillermo MD cc: Gael Thomas [address] [place] [phone] Joey Meadows MD [address] [place] [address] Allergies As of Date: 08/27/2023 Noted Allergy Reaction CLINDAMYCIN 04/01/2023 2 - Rash Date Reviewed: 08/27/2023 Reviewed by: Sherie Reich LPN - Fully Assessed Reason for Visit: Thyroid Cancer [879] Primary Visit Diagnosis:Thyroid cancer (HCC) [C73] Order(s):TSH BLD [SQTSH] Order #: [id number] FUTURE T4/THYROXINE BLOOD [SQT4] Order #: [id number] FUTURE THYROGLOBULIN BY LC-MS/MS, SERUM OR PLASMA, FOR THYROGLOBULIN ANTIBODY INTERFERENCE [SQTGMSMS] Order #: [id number] FUTURE Prescriptions as of 08/27/2023 - apixaban (ELIQUIS) 5 mg tab(s) Take 5 mg by mouth every 12 hours. - famotidine ( (more content not included)... Normal [facility] thyroid ca whole bodyon 1 08-10-2022 ND thyroid ca whole body [facility] [place] [address] Nuclear Medicine Report Signed Patient: Arvind Rm MR#: [id number] : 1955 Acct:[id number] Age/Sex: 68 / M ADM Date: 06/03/23 Loc: [place] Room: Type: [facility] Attending Dr: Temo Guillermo MD Copies to: [...] Pallavi Cline M.D.06/10/2023 4:04 PM Dictation Location: [place] [address] Transcribed By: [facility] 06/10/23 1604 Dictated By: Pallavi Cline MD 06/10/23 1601 Signed By: 06/10/23 1604 Normal [facility] Thyroglobulin and Thyrogobul in Ab panelon 06-04-2023 Thyroglobulin Ab Qn <4.0 IU/mL [facility] Thyroglobulin, Serum 2.8 ng/mL 1.6 - 5 0.0 ng/mL [facility] tx radpharm oralon 2022 [place] tx radpharm oral [facility] [place] [address] Nuclear Medicine Report Signed Patient: Arvind Rm MR#: [id number] : 1955 Acct:[id number] Age/Sex: 68 / M ADM Date: 06/03/23 Loc: ND Room: Type: [facility] Attending Dr: Temo Guillermo MD Copies to: [...] MD 06/03/23 1226 Signed By: 08/07/23 1102 [facility] Follow-Upon 05-22-2023 Follow-Up [id number] Arvind Rm 1955 M Date Provider Department Center 05/22/2023 Peg-LISS JI HVCVASENDRiley ID HeartVAS No family history on file Level of Service:23994 [place] OFFICE/OUTPATIENT ESTABLISHED MOD MDM 30-[address] [facility] Yovani 04-28-2023 L -- ---- Specimen: [id number] Received: 04/28/23 Status: CINDY Aponte Num: [id number] Spec Type: Surgical Subm Dr: Modesto Guzmán MD Tissues: A Colon Biopsy (CECAL POLYPS) B Colon Biopsy (ASCENDING POLYP) C Colon Biopsy (RECTAL POLYP) Procedures: HE/6, Gross/Micro L4/3 ---- Age/ Patient Sex Location Account Attending Physician ---- Arvind Rm 68/M [id number] Modesto Guzmán MD ---- SPEC NUM: [id number] RECD: 04/28/23 STATUS: CINDY APONTE NUM: [id number] NANDO: 04/28/23 DR: Modesto Guzmán MD ENTERED: 04/28/[address] [facility] [address]: CHERIE TYPE: Surgical DEPT: S ORDERED: HE/6, Gross/Micro [...] date of and ascending colon ---- Specimen: [id number] Received: 04/28/23 Status: CINDY Aponte Num: [id number] Spec Type: Surgical Subm Dr: Modesto Guzmán MD Tissues: A Colon Biopsy (CECAL POLYPS) B Colon Biopsy (ASCENDING POLYP) C Colon Biopsy (RECTAL POLYP) Procedures: HE/6, Gross/Micro L4/3 ---- Patient: Arvind Rm [id number] (Continued) ---- Specimen: [id number] Received: 04/28/23 (Continued) Gross Description (Continued) Signed (signature on file) Favian Nash MD 04/29/23942 ---- Specimen: [id number] Received: 04/28/23 Status: CINDY Aponte Num: [id number] Spec Type: Surgical Subm Dr: Modesto Guzmán MD Tissues: A Colon Biopsy (CECAL POLYPS) B Colon Biopsy (ASCENDING POLYP) C Colon Biopsy (RECTAL POLYP) Procedures: HE/6, Gross/Micro L4/3 ---- Patient: Arvind Rm [id number] (Continued) ---- Specimen: [id number] Received: 04/28/23 (Continued) Gross Description (Continued) are [...] microscopic examination confirms the diagnosis. CPT Codes 55850i2 ---- ---- Specimen: [id number] Received: 04/28/23 Status: CINDY Aponte Num: [id number] Spec Type: Surgical Subm Dr: Modesto Guzmán MD Tissues: A Colon Biopsy (CECAL POLYPS) B Colon Biopsy (ASCENDING POLYP) C Colon Biopsy (RECTAL POLYP) Procedures: HE/6, Gross/Micro L4/3 ---- Patient: Arvind Rm [id number] (Continued) ---- Signed (signature on file) Favian Nash MD 04/29/2343 [facility] THYROGLOBULIN BY MASS SPECTR OMETRYon 04-07-2023 Thyroglobulin [Mass/Vol] 1.7 ng/mL 1.3 - 31.8 ng/mL [facility] APTTon 03-20-2023 ACTIVATED PARTIAL THROMBOPLASTIN TIME IN PPP BY COAGULATION ASSAY 62.7 Seconds High 25.0-35.0 [facility] Comment on above: Order Comment: Monit or aPTT level 6 hours after rate change, then every 6 hours until therapeutic twice. While therapeutic monitor every AM. Result Comment: Clin ical significance of the APTT is questionable in the presence of heparin. Performed By: #### L [id number] #### [facility] ([facility]) [address] [place] [address] ACTIVATED PARTIAL THROMBOPLASTIN TIME IN PPP BY COAGULATION ASSAY 76.6 Seconds High 25.0-35.0 [facility] Comment on above: Order Comment: Monit or aPTT level 6 hours after rate change, then every 6 hours until therapeutic twice. While therapeutic monitor every AM. Result Comment: Clin ical significance of the APTT is questionable in the presence of heparin. Performed By: #### L [id number] #### [facility] ([facility]) [address] [place] [address] ACTIVATED PARTIAL THROMBOPLASTIN TIME IN PPP BY COAGULATION ASSAY 118.5 Seconds High 25.0-35.0 [facility] Comment on above: Order Comment: Basel ine aPTT before initiating heparin infusion. Result Comment: Clin ical significance of the APTT is questionable in the presence of heparin. Performed By: #### L AB113 #### [facility] ([facility]) [address] [place] [address] BASIC METABOLIC PANELon 08-2 Anion gap [Moles/Vol] 12 mmol/L Normal 7-20 [facility] Comment on above: Performed By: #### L AB15 #### [facility] ([facility]) [address] [place] [address] Calcium [Mass/Vol] 8.7 mg/dL Normal 8.6-10.3 [facility] Comment on above: Performed By: #### L AB15 #### [facility] ([facility]) [address] [place] [address] Chloride [Moles/Vol] 105 mmol/L Normal 98-107 [facility] Comment on above: Performed By: #### L AB15 #### [facility] ([facility]) [address] [place] [address] CO2 [Moles/Vol] 24 mmol/L Normal 21-31 [facility] Comment on above: Performed By: #### L AB15 #### [facility] ([facility]) [address] [place] [address] Creatinine [Mass/Vol] 0.93 mg/dL Normal 0.70-1.30 [facility] Comment on above: Performed By: #### L AB15 #### [facility] ([facility]) [address] [place] [address] GLOMERULAR FILTRATION RATE ML/MIN/1.73 SQ M.PREDICTED 89.4 mL/min/1.73m*2 Normal >60.0 [facility] Comment on above: Result Comment: [facility]???s estimated glomerular filtration rate (eGFR) will [...] individuals. Performed By: #### L AB15 #### [facility] ([facility]) [address] [place] [address] Glucose [Mass/Vol] 125 mg/dL High 70-100 [facility] Comment on above: Performed By: #### L AB15 #### [facility] ([facility]) [address] [place] [address] Potassium [Moles/Vol] 3.8 mmol/L Normal 3.5-5.1 [facility] Comment on above: Performed By: #### L AB15 #### [facility] ([facility]) [address] [place] [address] Sodium [Moles/Vol] 137 mmol/L Normal 136-145 [facility] Comment on above: Performed By: #### L AB15 #### [facility] ([facility]) [address] [place] [address] Urea nitrogen [Mass/Vol] 22 mg/dL Normal 7-25 [facility] Comment on above: Performed By: #### L AB15 #### [facility] ([facility]) [address] [place] [address] UREA NITROGEN/CREATININE (MASS RATIO) IN SER/PLAS 23.[address] [facility] Comment on above: Performed By: #### L AB15 #### [facility] ([facility]) [address] [place] [address] CBCon 03-20-2023 Erythrocyte distribution width (RBC) [Ratio] 12.1 % Normal 11.5-15.0 [facility] Comment on above: Performed By: #### L [id number] #### [facility] ([facility]) [address] [place] [address] ERYTHROCYTE MEAN CORPUSCULAR HEMOGLOBIN CONCENTRATION (G/DL) BY AUTOMATED 35.4 g/dL High 32.0-35.0 [facility] Comment on above: Performed By: #### L [id number] #### [facility] ([facility]) [address] [place] [address] Hematocrit (Bld) [Volume fraction] 39.0 % Normal 39.0-55.0 [facility] Comment on above: Performed By: #### L [id number] #### [facility] [address] [place] [address] Hemoglobin (Bld) [Mass/Vol] 13.8 g/dL Normal 13.0-17.0 [facility] Comment on above: Performed By: #### L [id number] #### [facility] [address] [place] [address] MCH (RBC) [Entitic mass] 30.8 pg Normal 27.0-33.0 [facility] Comment on above: Performed By: #### L [id number] #### [facility] ([facility]) [address] [place] [address] MCV (RBC) [Entitic vol] 87.1 fL Normal 82.0-98.0 [facility] Comment on above: Performed By: #### L [id number] #### [facility] ([facility]) [address] [place] [address] PLATELETS (10*3/UL) IN BLOOD AUTOMATED COUNT 205 10*3/uL Normal 150-400 [facility] Comment on above: Performed By: #### L [id number] #### [facility] [address] [place] [address] RBC (Bld) [#/Vol] 4.48 10*6/uL Normal 4.20-5.70 [facility] Comment on above: Performed By: #### L [id number] #### [facility] ([facility]) [address] [place] [address] WBC (Bld) [#/Vol] 8.59 10*3/uL Normal 4.00-10.60 [facility] Comment on above: Performed By: #### L [id number] #### [facility] [address] [place] [address] CBC WITH AUTO DIFFERENTIALon 03-20-2023 Basophils (Bld) [#/Vol] 0.02 10*3/uL Normal 0.00-0.20 [facility] Comment on above: Performed By: #### L [id number] #### [facility] [address] [place] [address] Basophils/100 WBC (Bld) 0.3 % Normal 0.0-1.0 [facility] Comment on above: Performed By: #### L [id number] #### [facility] ([facility]) [address] [place] [address] Eosinophils (Bld) [#/Vol] 0.12 10*3/uL Normal 0.00-0.50 [facility] Comment on above: Performed By: #### L [id number] #### [facility] ([facility]) [address] [place] [address] Eosinophils/100 WBC (Bld) 1.6 % Normal 0.0-6.0 [facility] Comment on above: Performed By: #### L [id number] #### [facility] ([facility]) [address] [place] [address] Erythrocyte distribution width (RBC) [Ratio] 12.1 % Normal 11.5-15.0 [facility] Comment on above: Performed By: #### L [id number] #### [facility] ([facility]) [address] [place] [address] ERYTHROCYTE MEAN CORPUSCULAR HEMOGLOBIN CONCENTRATION (G/DL) BY AUTOMATED 34.9 g/dL Normal 32.0-35.0 [facility] Comment on above: Performed By: #### L [id number] #### [facility] ([facility]) [address] [place] [address] Hematocrit (Bld) [Volume fraction] 39.2 % Normal 39.0-55.0 [facility] Comment on above: Performed By: #### L [id number] #### [facility] ([facility]) [address] [place] [address] Hemoglobin (Bld) [Mass/Vol] 13.7 g/dL Normal 13.0-17.0 [facility] Comment on above: Performed By: #### L [id number] #### [facility] ([facility]) [address] [place] [address] Immature granulocytes (Bld) [#/Vol] 0.08 10*3/uL Normal 0.00-0.20 [facility] Comment on above: Performed By: #### L [id number] #### [facility] ([facility]) [address] [place] [address] Immature granulocytes/100 WBC (Bld) 1.0 % Normal 0.0-1.0 [facility] Comment on above: Performed By: #### L [id number] #### [facility] ([facility]) [address] [place] [address] Lymphocytes (Bld) [#/Vol] 1.78 10*3/uL Normal 1.20-4.00 [facility] Comment on above: Performed By: #### L [id number] #### [facility] ([facility]) [address] [place] [address] Lymphocytes/100 WBC (Bld) 23.0 % Normal 20.0-45.0 [facility] Comment on above: Performed By: #### L [id number] #### [facility] ([facility]) [address] [place] [address] MCH (RBC) [Entitic mass] 30.6 pg Normal 27.0-33.0 [facility] Comment on above: Performed By: #### L [id number] #### [facility] [address] [place] [address] MCV (RBC) [Entitic vol] 87.5 fL Normal 82.0-98.0 [facility] Comment on above: Performed By: #### L [id number] #### [facility] [address] [place] [address] Monocytes (Bld) [#/Vol] 0.89 10*3/uL Normal 0.10-1.00 [facility] Comment on above: Performed By: #### L [id number] #### [facility] [address] [place] [address] Monocytes/100 WBC (Bld) 11.5 % Normal 5.0-12.0 [facility] Comment on above: Performed By: #### L [id number] #### [facility] ([facility]) [address] [place] [address] Neutrophils (Bld) [#/Vol] 4.85 10*3/uL Normal 1.60-7.60 [facility] Comment on above: Performed By: #### L [id number] #### [facility] ([facility]) [address] [place] [address] Neutrophils/100 WBC (Bld) 62.6 % Normal 40.0-72.0 [facility] Comment on above: Performed By: #### L [id number] #### [facility] ([facility]) [address] [place] [address] NRBC (PER 100 WBCS) BY AUTOMATED COUNT 0.0 % Normal 0 [facility] Comment on above: Performed By: #### L [id number] #### [facility] ([facility]) [address] [place] [address] PLATELETS (10*3/UL) IN BLOOD AUTOMATED COUNT 200 10*3/uL Normal 150-400 [facility] Comment on above: Performed By: #### L [id number] #### [facility] ([facility]) [address] [place] [address] RBC (Bld) [#/Vol] 4.48 10*6/uL Normal 4.20-5.70 [facility] Comment on above: Performed By: #### L [id number] #### [facility] ([facility]) [address] [place] [address] WBC (Bld) [#/Vol] 7.74 10*3/uL Normal 4.00-10.60 [facility] Comment on above: Performed By: #### L [id number] #### [facility] ([facility]) [address] [place] [address] DSon 03-20-2023 DS Admission Admitted 03/19/2023 for extensive RLE DVT Discharge Diagnosis DVT, lower extremity, proximal, acute, right ([facility]) Discharge Disposition Home or Self [...] These medications were sent to [facility] - [place], [place] - [address], [facility] [address] apixaban 5 mg tablet apixaban 5 mg tablet Activity Patient currently has no discharge activity orders Diet Patient currently has no discharge diet orders Allergies Clindamycin and Shellfish derived Hospital Course Arvind Rm is a 68 y.o. male presenting to [facility] as a direct admit from [facility] on 03/19 for extensive right lower [...] 05/22/2023 10:15 AM Liss Ji NP HVCVASENDO ID HeartVAS Normal [facility] HEPARIN LEVELon 03-20-2023 HEPARIN UNFRACTIONATED (U/ML) IN PPP BY CHROMOGENIC METHOD 0.31 IU/mL Normal 0.3-0.7 [facility] Comment on above: Result Comment: [place] roxaban and Apixaban will interfere with the anti Xa assay used to monitor UFH and LMWH. Performed By: #### L [id number] #### [facility] ([facility]) [address] [place] [address] HEPARIN UNFRACTIONATED (U/ML) IN PPP BY CHROMOGENIC METHOD 0.23 IU/mL Low 0.3-0.7 [facility] Comment on above: Result Comment: [place] roxaban and Apixaban will interfere with the anti Xa assay used to monitor UFH and LMWH. Performed By: #### L [id number] #### [facility] ([facility]) [address] [place] [address] HEPARIN UNFRACTIONATED (U/ML) IN PPP BY CHROMOGENIC METHOD 0.34 IU/mL Normal 0.3-0.7 [facility] Comment on above: Result Comment: [place] roxaban and Apixaban will interfere with the anti Xa assay used to monitor UFH and LMWH. Performed By: #### L [id number] #### [facility] ([facility]) [address] [place] [place] [address] HEPARIN UNFRACTIONATED (U/ML) IN PPP BY CHROMOGENIC METHOD 0.51 IU/mL Normal 0.3-0.7 [facility] Comment on above: Order Comment: Check anti-Xa level every 6 hours while on heparin infusion, or per protocol. Result Comment: [place] roxaban and Apixaban will interfere with the anti Xa assay used to monitor UFH and LMWH. Performed By: #### L [id number] #### [facility] ([facility]) [address] [place] [place] [address] MAGNESIUMon 03-20-2023 Magnesium [Mass/Vol] 2.0 mg/dL Normal 1.9-2.7 [facility] Comment on above: Performed By: #### L [id number] #### [facility] ([facility]) [address] [place] [place] [address] PHOSPHORUSon 03-20-2023 Magnesium [Mass/Vol] 3.5 mg/dL Normal 2.5-5.0 [facility] Comment on above: Performed By: #### L [id number] #### [facility] ([facility]) [address] [place] [address] PROTIME-INRon 03-20-2023 INR IN PPP BY COAGULATION ASSAY 1.15 High 0.90-1.10 [facility] Comment on above: Result Comment: ACCC [...] 1995;108:[id number]-246S. Performed By: #### L [id number] #### [facility] ([facility]) [address] [place] [address] PROTHROMBIN TIME (PT) IN PPP BY COAGULATION ASSAY 14.7 Seconds Normal 12.3-14.8 [facility] Comment on above: Performed By: #### L [id number] #### [facility] ([facility]) [address] [place] [address] BASIC METABOLIC PANELon 02-25 Anion gap [Moles/Vol] 13 mmol/L Normal 7-20 [facility] Comment on above: Performed By: #### L [id number] #### [facility] ([facility]) [address] [place] [address] Calcium [Mass/Vol] 9.1 mg/dL Normal 8.6-10.3 [facility] Comment on above: Performed By: #### L [id number] #### [facility] ([facility]) [address] [place] [address] Chloride [Moles/Vol] 101 mmol/L Normal 98-107 [facility] Comment on above: Performed By: #### L [id number] #### [facility] [address] [place] [address] CO2 [Moles/Vol] 28 mmol/L Normal 21-31 [facility] Comment on above: Performed By: #### L [id number] #### [facility] [address] [place] [address] Creatinine [Mass/Vol] 0.97 mg/dL Normal 0.70-1.30 [facility] Comment on above: Performed By: #### L [id number] #### [facility] ([facility]) [address] [place] [address] GLOMERULAR FILTRATION RATE ML/MIN/1.73 SQ M.PREDICTED 85.0 mL/min/1.73m*2 Normal >60.0 [facility] Comment on above: Result Comment: [facility]???s estimated glomerular filtration rate (eGFR) will [...] individuals. Performed By: #### L [id number] #### [facility] ([facility]) [address] [place] [address] Glucose [Mass/Vol] 159 mg/dL High 70-100 [facility] Comment on above: Performed By: #### L [id number] #### [facility] ([facility]) [address] [place] [address] Potassium [Moles/Vol] 3.5 mmol/L Normal 3.5-5.1 [facility] Comment on above: Performed By: #### L [id number] #### [facility] ([facility]) [address] [place] [address] Sodium [Moles/Vol] 138 mmol/L Normal 136-145 [facility] Comment on above: Performed By: #### L [id number] #### [facility] ([facility]) [address] [place] [address] Urea nitrogen [Mass/Vol] 22 mg/dL Normal 7-25 [facility] Comment on above: Performed By: #### L [id number] #### [facility] ([facility]) [address] [place] [address] UREA NITROGEN/CREATININE (MASS RATIO) IN SER/PLAS 22.[address] [facility] Comment on above: Performed By: #### L [id number] #### [facility] ([facility]) [address] [facility] [place] [id number] CBC WITH AUTO DIFFERENTIALon 03-19-2023 Basophils (Bld) [#/Vol] 0.04 10*3/uL Normal 0.00-0.20 [facility] Comment on above: Performed By: #### L [id number] #### [facility] ([facility]) [address] [place] [address] Basophils/100 WBC (Bld) 0.5 % Normal 0.0-1.0 [facility] Comment on above: Performed By: #### L [id number] #### [facility] ([facility]) [address] [place] [address] Eosinophils (Bld) [#/Vol] 0.15 10*3/uL Normal 0.00-0.50 [facility] Comment on above: Performed By: #### L [id number] #### [facility] ([facility]) [address] [place] [address] Eosinophils/100 WBC (Bld) 1.7 % Normal 0.0-6.0 [facility] Comment on above: Performed By: #### L [id number] #### [facility] ([facility]) [address] [place] [address] Erythrocyte distribution width (RBC) [Ratio] 12.3 % Normal 11.5-15.0 [facility] Comment on above: Performed By: #### L [id number] #### [facility] ([facility]) [address] [place] [address] ERYTHROCYTE MEAN CORPUSCULAR HEMOGLOBIN CONCENTRATION (G/DL) BY AUTOMATED 34.3 g/dL Normal 32.0-35.0 [facility] Comment on above: Performed By: #### L [id number] #### [facility] ([facility]) [address] [place] [address] Hematocrit (Bld) [Volume fraction] 42.8 % Normal 39.0-55.0 [facility] Comment on above: Performed By: #### L [id number] #### [facility] ([facility]) [address] [place] [address] Hemoglobin (Bld) [Mass/Vol] 14.7 g/dL Normal 13.0-17.0 [facility] Comment on above: Performed By: #### L [id number] #### [facility] [address] [place] [address] Immature granulocytes (Bld) [#/Vol] 0.09 10*3/uL Normal 0.00-0.20 [facility] Comment on above: Performed By: #### L [id number] #### [facility] ([facility]) [address] [place] [address] Immature granulocytes/100 WBC (Bld) 1.0 % Normal 0.0-1.0 [facility] Comment on above: Performed By: #### L [id number] #### [facility] ([facility]) [address] [place] [address] Lymphocytes (Bld) [#/Vol] 2.02 10*3/uL Normal 1.20-4.00 [facility] Comment on above: Performed By: #### L [id number] #### [facility] ([facility]) [address] [place] [address] Lymphocytes/100 WBC (Bld) 23.3 % Normal 20.0-45.0 [facility] Comment on above: Performed By: #### L [id number] #### [facility] ([facility]) [address] [place] [address] MCH (RBC) [Entitic mass] 30.6 pg Normal 27.0-33.0 [facility] Comment on above: Performed By: #### L [id number] #### [facility] ([facility]) [address] [place] [address] MCV (RBC) [Entitic vol] 89.2 fL Normal 82.0-98.0 [facility] Comment on above: Performed By: #### L [id number] #### [facility] ([facility] [address] [place] [address] Monocytes (Bld) [#/Vol] 0.71 10*3/uL Normal 0.10-1.00 [facility] Comment on above: Performed By: #### L [id number] #### [facility] ([facility]) [address] [place] [address] Monocytes/100 WBC (Bld) 8.2 % Normal 5.0-12.0 [facility] Comment on above: Performed By: #### L [id number] #### [facility] ([facility]) [address] [address] Neutrophils (Bld) [#/Vol] 5.67 10*3/uL Normal 1.60-7.60 [facility] Comment on above: Performed By: #### L [id number] #### [facility] ([facility]) [address] [place] [address] Neutrophils/100 WBC (Bld) 65.3 % Normal 40.0-72.0 [facility] Comment on above: Performed By: #### L [id number] #### [facility] ([facility]) [address] [place] [address] NRBC (PER 100 WBCS) BY AUTOMATED COUNT 0.0 % Normal 0 [facility] Comment on above: Performed By: #### L [id number] #### [facility] ([facility] [address] [place] [address] PLATELETS (10*3/UL) IN BLOOD AUTOMATED COUNT 219 10*3/uL Normal 150-400 [facility] Comment on above: Performed By: #### L [id number] #### [facility] ([facility] [address] [place] [address] RBC (Bld) [#/Vol] 4.80 10*6/uL Normal 4.20-5.70 [facility] Comment on above: Performed By: #### L [id number] #### [facility] ([facility]) [address] [place] [place] [address] WBC (Bld) [#/Vol] 8.68 10*3/uL Normal 4.00-10.60 [facility] Comment on above: Performed By: #### L [id number] #### [facility] ([facility]) [address] [place] [place] [address] CTA AORTA AND BILATERAL ILIO FEMORAL RUNOFF [...] dilated bladder hydronephrosis Electronically signed: Luis Burroughs. [facility] Comment on above: Order Comment: CTA a bdomen and pelvis with venous phase to evaluate DVT HPon 03-19-2023 HP -- Attestation signed by Harshal Arredondo MD at 03/20/2023 4:05 PM Patient seen with the PA. Has a ride to work extremity swelling and pain which is not significant or severe. He has the pain for about three days and the swelling for only one day. Ultrasound done which of possible partially occluded [place] of thrombosis of the common femoral vein and thrombosis of the femoral vein's. We will obtain CT scan with Tamera Fais to evaluate for iliac vein of thrombosis. If any involvement of the proximal segments, including the Common femoro, or iliacs Vein will consider thrombectomy otherwise will be treated with anticoagulation. [facility] Vascular Surgery Service HISTORY AND PHYSICAL History Of Present Illness Arvind Rm is a 68 y.o. male presenting to [facility] as a direct admit from [facility] for extensive right lower extremity DVT. [...] worsened last night/this morning prompting presentation to [place] ED. In ED patient had US of lower extremity finding occlusive thrombus within right posterior tibial vein, peroneal vein, popliteal vein, femoral vein and non-occlusive thrombus within the common femoral vein. Patient was started on heparin and decision was made to transfer to [facility]. Patient assessed on 6AB, endorses pain to right calf, and edema of right lower leg. Patient denies chest pain, shortness of breath, abdominal pain, nausea, vomiting, headache, or changes in vision. Past Medical History He has a past medical history of DVT of leg (deep venous thrombosis) ([facility]CC) (03/19/2023). Surgical History He has a past [...] lower le (more content not included)... Normal [facility] MAGNESIUMon 03-19-2023 Magnesium [Mass/Vol] 2.0 mg/dL Normal 1.9-2.7 [facility] Comment on above: Performed By: #### L [id number] #### [facility] ([facility]) [address] [place] [address] PHOSPHORUSon 03-19-2023 Magnesium [Mass/Vol] 3.7 mg/dL Normal 2.5-5.0 [facility] Comment on above: Performed By: #### L [id number] #### [facility] ([facility]) [address] [place] [address] PROTIME-INRon 03-19-2023 INR IN PPP BY COAGULATION ASSAY 1.19 High 0.90-1.10 [facility] Comment on above: Result Comment: ACCC [...] 1995;108:231S-246S. Performed By: #### L [id number] #### [facility] ([facility]) [address] [place] [address] PROTHROMBIN TIME (PT) IN PPP BY COAGULATION ASSAY 15.1 Seconds High 12.3-14.8 [facility] Comment on above: Performed By: #### L [id number] #### [facility] ([facility]) [address] [place] [address] Consultation Noteon 01-30-20 23 Consultation Note [id number] 0CD:127 Normal [facility] US FNA W US GD ADD LESon US FNA W US GD ADD LES Begin Addendum #1 COLLECTED DATE/TIME: 11/11/2022 09:46 EDT Final Diagnosis Report for [facility] [place] (A/B) RIGHT THYROID INFERIOR NODULE: FINE [...] (FNA). 2. Pathology results are pending. Normal [facility] Pathology Noteon 11-10-2022 Pathology Note [id number]#1.0 0CD:127 Normal [facility] Outside Colonoscopyon 2022 Outside Colonoscopy [id number]#1.0 0CD:127 Normal [facility] US THYROIDon 10-30-2022 US THYROID EXAMINATION: [...] cm left nodules is recommended TI-RADS: The [employer] TI-RADS committee's white paper recommendations for thyroid lesions classified as TR4 (moderately suspicious) are listed below: > 1.0 cm. Follow-up ultrasound in 1, 2, 3, and 5 years. > 1.5 cm. FNA. J. Am Nando Radiol 2017;14:587-595. TI-RADS: The [place] [employer] TI-RADS committee's white paper recommendations for thyroid lesions classified as TR5 (highly suspicious) are listed below: > 0.5 cm. Annual ultrasound follow-up for up to 5 years. > 1.0 cm. FNA. J. Am Nando Radiol 2017;14:587-595. Electronically authenticated by: DIANA HERNANDEZ Date: 2022-10-30 14:53 Normal [facility] Consent for Procedure/Surger yon 10-23-2022 Consent for Procedure/Surgery [id number] 0CD:127 Normal [facility] Facesheeton 10-23-2022 Facesheet [id number]#1.0 0CD:127 Normal [facility] Pre-Certification Formon Pre-Certification Form [id number]. 00CD:127 [facility] Ambulatory Visit Summaryon 0 10-22-2022 Ambulatory Visit Summary ARVIND RM Cade :1955 Visit Date:10/22/2022 Ambulatory Visit Instructions Your Care Team Attending Physician - DAVIDA CHIN, Violeta Albert Primary Care Physician - Josiane CHIN, Gael This Is Your Medications List multivitamin (Multi [...] Family history of colon cancer Hyperlipidemia Normal [facility] Physician Referralon 023 Physician Referral [id number] 0CD:127 [facility] PSA, FREE AND TOTAL RATIOon 08-23-2022 % Free PSA 21.0 % Normal [facility] Comment on above: Result Comment: [...] men. Performed By: #### P SAFREE #### [facility] [address] [address] [address] Remigio Han Prostate specific Ag [Mass/Vol] 3.1 ng/mL Normal 0.0-4.0 [facility] Comment on above: Result Comment: Cydney VARELA methodology. . According to the [place] [employer], Serum PSA should decrease and [...] disease. Performed By: #### P SAFREE #### [facility] [address] [address] [address] Remigio Han PSA, Free 0.65 ng/mL Normal N/A [facility] Comment on above: Result Comment: Cydney VARELA methodology. Performed By: #### P SAFREE #### [facility] [address] [address] [address] Remigio Han PSA, FREE AND TOTAL RATIOon 02-21-2022 % Free PSA 24.9 % Normal [facility] Comment on above: Result Comment: [...] men. Performed By: #### P SAFREE #### [facility] [address] [place] [address] Dr. Reimgio Han Prostate specific Ag [Mass/Vol] 4.5 ng/mL Critically high 0.0-4.0 [facility] Comment on above: Result Comment: Cydney bergman ECLIA methodology. . According to the [place] [employer], Serum PSA should decrease and [...] disease. Performed By: #### P SAFREE #### [facility] [address] [place] [address] Dr. Remigio Han PSA, Free 1.12 ng/mL Normal N/A [facility] Comment on above: Result Comment: Cydney bergman ECLIA methodology. Performed By: #### P SAFREE #### [facility] [address] [place] [address] Dr. Remigio Han INSULINon 02-20-2022 Insulin 14.7 uIU/mL Normal 2.6-24.9 [facility] Comment on above: Performed By: #### I NSULIN #### [facility] [address] [place] [address] Dr. Remigio Han CBC AUTO DIFFon 02-19-2022 BASO # 0.0 103/ul Normal 0.0-0.1 [facility] Comment on above: Performed By: #### C BC #### [facility] [address] [place] [address] Dr. Remigio Han Basophils/100 WBC (Bld) 0.5 % Normal 0.2-2.0 [facility] Comment on above: Performed By: #### C BC #### [facility] [address] [place] [address] Dr. Remigio Han EO # 0.1 103/ul Normal 0.0-0.7 [facility] Comment on above: Performed By: #### C BC #### [facility] [address] [place] [address] Dr. Remigio Han Eosinophils/100 WBC (Bld) 1.5 % Normal 0.9-7.0 [facility] Comment on above: Performed By: #### C BC #### [facility] [address] [place] [address] Dr. Remigio Han Erythrocyte distribution width (RBC) [Ratio] 13.0 % Normal 11.0-15.0 [facility] Comment on above: Performed By: #### C BC #### [facility] [address] [place] [address] Dr. Remigio Han Hematocrit (Bld) [Volume fraction] 48.4 % Normal 42.0-54.0 [facility] Comment on above: Performed By: #### C BC #### [facility] [address] [place] [address] Dr. Remigio Han Hemoglobin (Bld) [Mass/Vol] 16.6 g/dL Normal 14.0-18.0 [facility] Comment on above: Performed By: #### C BC #### [facility] [address] [place] [address] Dr. Remigio Han IG # 0.02 10e3/ul Normal 0.00-0.03 [facility] Comment on above: Performed By: #### C BC #### [facility] [address] [place] [address] Dr. Remigio Han IG % 0.4 % Normal 0.0-0.5 [facility] Comment on above: Performed By: #### C BC #### [facility] [address] [place] [address] Dr. Remigio Han LYMPH # 1.6 103/ul Normal 1.2-3.8 [facility] Comment on above: Performed By: #### C BC #### [facility] [address] [place] [address] Dr. Remigio Han Lymphocytes/100 WBC (Bld) 30.0 % Normal 20.5-60.0 [facility] Comment on above: Performed By: #### C BC #### [facility] [address] [place] [address] Dr. Remigio Han MANUAL DIFF REQ NO Normal [facility] Comment on above: Performed By: #### C BC #### [facility] [address] [place] [address] Dr. Remigio Han MCH (RBC) [Entitic mass] 30.2 pg Normal 25.9-34.0 [facility] Comment on above: Performed By: #### C BC #### [facility] [address] [place] [address] Dr. Remigio Han MCHC (RBC) [Mass/Vol] 34.3 g/dL Normal 29.9-35.2 [facility] Comment on above: Performed By: #### C BC #### [facility] [address] [place] [address] Dr. Remigio Han MCV (RBC) [Entitic vol] 88.2 fL Normal 80.0-94.0 [facility] Comment on above: Performed By: #### C BC #### [facility] [address] [place] [address] Dr. Remigio Han MONO # 0.4 103/ul Normal 0.3-0.8 [facility] Comment on above: Performed By: #### C BC #### [facility] [address] [place] [address] Dr. Remigio Han Monocytes/100 WBC (Bld) 8.1 % Normal 1.7-12.0 [facility] Comment on above: Performed By: #### C BC #### [facility] [address] [place] [address] Dr. Remigio Han NEUT # 3.3 103/ul Normal 1.4-6.5 [facility] Comment on above: Performed By: #### C BC #### [facility] [address] [place] [address] Dr. Remigio Han Neutrophils/100 WBC (Bld) 59.5 % Normal 43.0-75.0 [facility] Comment on above: Performed By: #### C BC #### [facility] [address] [address] [address] Remigio Han Platelet mean volume (Bld) [Entitic vol] 9.8 fL Normal 9.5-13.5 [facility] Comment on above: Performed By: #### C BC #### [facility] [address] [address] [address] Remigio Han PLT 217 103/ul Normal 150-450 [facility] Comment on above: Performed By: #### C BC #### [facility] [address] [address] [address] Remigio Han RBC 5.49 106/ul Normal 4.70-6.10 [facility] Comment on above: Performed By: #### C BC #### [facility] [address] [address] [address] Remigio Han WBC 5.5 103/ul Normal 4.0-11.0 [facility] Comment on above: Performed By: #### C BC #### [facility] [address] [address] [address] Remigio Han GLYCOHEMOGLOBIN A1Con 2021 ADA RECOMMENDATION SEE BELOW Normal [facility] Comment on above: Result Comment: ADA RECOMMENDED LIMIT 4.0 - 6.0 ADA THERAPEUTIC TARGET < 7.0 ACTION SUGGESTED > 7.0 Performed By: #### A 1C #### [facility] [address] [place] [address] Dr. Remigio Han Glucose [Mass/Vol] 103 mg/dL Normal [facility] Comment on above: Performed By: #### A 1C #### [facility] [address] [address] [address] Remigio Han HbA1c (Bld) [Mass fraction] 5.2 % Normal 4.5-6.2 [facility] Comment on above: Performed By: #### A 1C #### [facility] [address] [place], [place] [address] Dr. Remigio Han LIPID PROFILEon 02-19-2022 CHOL-HDL RATIO NORM SEE BELOW Normal [facility] Comment on above: Result Comment: 3.3 - 4.4 LOW RISK 4.4 - 7.1 AVERAGE RISK 7.1 - 11.0 MODERATE RISK >11.0 HIGH RISK Performed By: #### L IPID, CMP ####[facility] [address] [place], [place] [address]Js. Remigio Han Cholesterol [Mass/Vol] 259 mg/dL Critically high <=200 [facility] Comment on above: Performed By: #### L IPID, CMP ####[facility] [id number] [id number][address] Remigio Han Cholesterol in HDL [Mass/Vol] 62 mg/dL Critically high 40-60 [facility] Comment on above: Performed By: #### L IPID, CMP ####[facility] [address] [id number][address] Remigio Han Cholesterol in LDL [Mass/Vol] 171.8 mg/dL Normal [facility] Comment on above: Performed By: #### L IPID, CMP ####[facility] [id number] [id number][address] Remigio Han Cholesterol.total/Ch olesterol in HDL [Mass ratio] 4.2 {ratio} Normal [facility] Comment on above: Performed By: #### L IPID, CMP ####[facility] [id number] [place] [id number] Remigio Han HDL NORMAL > or = 60 mg/dl - LO W CARDIOVASCULAR RISK <40 mg/dl - HIGH CARDIOVASCULAR RISK Normal [facility] Comment on above: Performed By: #### L IPID, CMP ####[facility] [id number] [id number][address] Remigio Han LDL CALC NORMAL SEE BELOW Normal [facility] Comment on above: Result Comment: <100 mg/dl OPTIMAL 100 - 129 mg/dl NEAR OR ABOVE OPTIMAL 130 - 159 mg/dl BORDERLINE HIGH 160 - 189 mg/dl HIGH >190 mg/dl VERY HIGH Performed By: #### L IPID, CMP ####[facility] [id number] [place], [place] [address]JfDr. Remigio Han Triglyceride [Mass/Vol] 126 mg/dL Normal <=150 [facility] Comment on above: Performed By: #### L IPID, CMP ####[facility] [address] [place], [place] [address]KgCindi Han VLDL CALC 25.2 mg/dL Normal [facility] Comment on above: Performed By: #### L IPID, CMP ####[facility] [address] [place] [id number] Han PROF 14(COMP METB)on 022 Albumin [Mass/Vol] 3.9 g/dL Normal 3.4-5.0 [facility] Comment on above: Performed By: #### L IPID, CMP #### [facility] [address] [address] [address] Remigio Han Albumin/Globulin [Mass ratio] 1.1 {ratio} Normal [facility] Comment on above: Performed By: #### L IPID, CMP #### [facility] [address] [address] [address] Remigio Han ALP [Catalytic activity/Vol] 65 U/L Normal 46-116 [facility] Comment on above: Performed By: #### L IPID, CMP #### [facility] [address] [address] [address] Remigio Han ALT [Catalytic activity/Vol] 25 U/L Normal 16-63 [facility] Comment on above: Performed By: #### L IPID, CMP #### [facility] [address] [address] [address] Remigio Han Anion gap [Moles/Vol] 13.1 mmol/L Normal [facility] Comment on above: Performed By: #### L IPID, CMP #### [facility] [address] [address] [address] Remigio Han AST [Catalytic activity/Vol] 15 U/L Normal 15-37 [facility] Comment on above: Performed By: #### L IPID, CMP #### [facility] [address] [address] [address] Remigio Han Bilirubin [Mass/Vol] 0.5 mg/dL Normal 0.2-1.0 [facility] Comment on above: Performed By: #### L IPID, CMP #### [facility] [address] [address] [address] Remigio Han Calcium [Mass/Vol] 9.5 mg/dL Normal 8.5-10.1 [facility] Comment on above: Performed By: #### L IPID, CMP #### [facility] [address] [address] [address] Remigio Han Chloride [Moles/Vol] 104 mmol/L Normal 98-107 [facility] Comment on above: Performed By: #### L IPID, CMP #### [facility] [address] [place] [address] Dr. Remigio Han CO2 [Moles/Vol] 28.3 mmol/L Normal 21.0-32.0 [facility] Comment on above: Performed By: #### L IPID, CMP #### [facility] [address] [place] [address] Dr. Remigio Han Creatinine [Mass/Vol] 1.05 mg/dL Normal 0.70-1.30 [facility] Comment on above: Performed By: #### L IPID, CMP #### [facility] [address] [place] [address] Dr. Remigio Han EGFR-AF GABONESE >60 Normal >=60 [facility] Comment on above: Performed By: #### L IPID, CMP #### [facility] [address] [place] [address] Dr. Remigio Han EGFR-NON AF GABONESE >60 Normal >=60 [facility] Comment on above: Performed By: #### L IPID, CMP #### [facility] [address] [place] [address] Dr. Remigio Han Globulin (S) [Mass/Vol] 3.4 g/dL Normal [facility] Comment on above: Performed By: #### L IPID, CMP #### [facility] [address] [address] [address] Remigio Han Glucose [Mass/Vol] 93 mg/dL Normal 74-106 [facility] Comment on above: Performed By: #### L IPID, CMP #### [facility] [address] [place] [address] Dr. Remigio Han Potassium [Moles/Vol] 4.4 mmol/L Normal 3.5-5.1 [facility] Comment on above: Performed By: #### L IPID, CMP #### [facility] [address] [place] [address] Dr. Remigio Han Protein [Mass/Vol] 7.3 g/dL Normal 6.4-8.2 [facility] Comment on above: Performed By: #### L IPID, CMP #### [facility] [address] [place] [address] Dr. Remigio Han Sodium [Moles/Vol] 141 mmol/L Normal 136-145 [facility] Comment on above: Performed By: #### L IPID, CMP #### [facility] [address] [place] [address] Dr. Remigio Han Urea nitrogen [Mass/Vol] 25.0 mg/dL Critically high 7.0-18.0 [facility] Comment on above: Performed By: #### L IPID, CMP #### [facility] [address] [place] [address] Dr. Remigio Han Urea nitrogen/Creatinine [Mass ratio] 23.8 mg/mg Normal [facility] Comment on above: Performed By: #### L IPID, CMP #### [facility] [address] [place] [address] Dr. Remigio Han Vital Signs Date Time Vital Sign Value Performing Clinician Facility 07-05-2024 09:17-0500 Body temperature 98.49 [degF] Lab/[facility] Work Phone: [facility] 07-05-2024 09:17-0500 Diastolic blood pressure 81 mm[Hg] Lab/[employer] Work Phone: [facility] 07-05-2024 09:17-0500 Heart rate 68 /min [facility] [place] Work Phone: [facility] 07-05-2024 09:17-0500 Respiratory rate 16 /min [facility] Work Phone: [facility] 07-05-2024 09:17-0500 SaO2% (BldA) [Mass fraction] 99 % [facility] Work Phone: [facility] 07-05-2024 09:17-0500 Systolic blood pressure 137 mm[Hg] [facility] [place] Work Phone: [facility] 07-04-2024 09:06-0500 Body mass index (BMI) [Ratio] 30.17 kg/m2 [facility] Work Phone: [facility] 07-04-2024 09:06-0500 Body temperature 97.59 [degF] [facility] Work Phone: [facility] 07-04-2024 09:06-0500 Body weight 83.5 kg Lab[facility] Work Phone: [facility] 07-04-2024 09:06-0500 Diastolic blood pressure 88 mm[Hg] [facility] Work Phone: [facility] 07-04-2024 09:06-0500 Heart rate 83 /min [facility] Work Phone: [facility] 07-04-2024 09:06-0500 Respiratory rate 16 /min [facility] Work Phone: [facility] 07-04-2024 09:06-0500 SaO2% (BldA) [Mass fraction] 97 % [facility] Work Phone: [facility] 07-04-2024 09:06-0500 Systolic blood pressure 147 mm[Hg] [facility] Work Phone: [facility] 01-19-2024 14:45-0400 Body mass index (BMI) [Ratio] 30.06 kg/m2 HARMONY Guillermo MD Work Phone: [facility] 01-19-2024 14:45-0400 Body weight 83.2 kg HARMONY Guillermo MD Work Phone: [facility] 01-19-2024 14:45-0400 Diastolic blood pressure 75 mm[Hg] HARMONY Guillermo MD Work Phone: [facility] 01-19-2024 14:45-0400 Heart rate 57 /min HARMONY Guillermo MD Work Phone: [facility] 01-19-2024 14:45-0400 Respiratory rate 16 /min HARMONY Guillermo MD Work Phone: [facility] 01-19-2024 14:45-0400 SaO2% (BldA) [Mass fraction] 99 % HARMONY Guillermo MD Work Phone: [facility] 01-19-2024 14:45-0400 Systolic blood pressure 129 mm[Hg] HARMONY Guillermo MD Work Phone: [facility] 08-27-2023 09:37-0500 Body temperature 97.5 [degF] HARMONY Guillermo MD Work Phone: [facility] 08-27-2023 09:37-0500 Body weight 86.4 kg HARMONY Guillermo MD Work Phone: [facility] 08-27-2023 09:37-0500 Diastolic blood pressure 80 mm[Hg] HARMONY Guillermo MD Work Phone: [facility] 08-27-2023 09:37-0500 Heart rate 70 /min HARMONY Guillermo MD Work Phone: [facility] 08-27-2023 09:37-0500 Respiratory rate 16 /min HARMONY Guillermo MD Work Phone: [facility] 08-27-2023 09:37-0500 SaO2% (BldA) [Mass fraction] 98 % HARMONY Guillermo MD Work Phone: [facility] 08-27-2023 09:37-0500 Systolic blood pressure 139 mm[Hg] HARMONY Guillermo MD Work Phone: [facility] 06-17-2023 10:19-0500 Body temperature 96.69 [degF] HARMONY Guillermo MD Work Phone: [facility] 06-17-2023 10:19-0500 Body weight 82.1 kg HARMONY Guillermo MD Work Phone: [facility] 06-17-2023 10:19-0500 Diastolic blood pressure 86 mm[Hg] HARMONY Guillermo MD Work Phone: [facility] 06-17-2023 10:19-0500 Heart rate 70 /min HARMONY Guillermo MD Work Phone: [facility] 06-17-2023 10:19-0500 Respiratory rate 18 /min HARMONY Guillermo MD Work Phone: [facility] 06-17-2023 10:19-0500 SaO2% (BldA) [Mass fraction] 98 % HARMONY Guillermo MD Work Phone: [facility] 06-17-2023 10:19-0500 Systolic blood pressure 143 mm[Hg] HARMONY Guillermo MD Work Phone: [facility] 06-02-2023 08:43-0500 Body temperature 97.39 [degF] [facility] Work Phone: [facility] 06-02-2023 08:43-0500 Diastolic blood pressure 84 mm[Hg] [facility] Work Phone: [facility] 06-02-2023 08:43-0500 Heart rate 78 /min [facility] Work Phone: [facility] 06-02-2023 08:43-0500 Respiratory rate 16 /min Lab/[place] Work Phone: [facility] 06-02-2023 08:43-0500 SaO2% (BldA) [Mass fraction] 99 % [facility] Work Phone: [facility] 06-02-2023 08:43-0500 Systolic blood pressure 132 mm[Hg] [facility] Work Phone: [facility] 06-01-2023 08:41-0500 Body temperature 97 [degF] [facility] Work Phone: [facility] 06-01-2023 08:41-0500 Body weight 80.29 kg Lab[facility] Work Phone: [facility] 06-01-2023 08:41-0500 Diastolic blood pressure 86 mm[Hg] Lab[facility] Work Phone: [facility] 06-01-2023 08:41-0500 Heart rate 68 /min [facility] Work Phone: [facility] 06-01-2023 08:41-0500 Respiratory rate 16 /min Lab/[place] Work Phone: [facility] 06-01-2023 08:41-0500 SaO2% (BldA) [Mass fraction] 99 % [facility] [place] Work Phone: [facility] 06-01-2023 08:41-0500 Systolic blood pressure 133 mm[Hg] [facility] [place] Work Phone: [facility] 04-28-2023 09:47-0400 Diastolic blood pressure 74 mm[Hg] MD Gael Thomas Work Phone: [facility] 04-28-2023 09:47-0400 Heart rate 78 /min MD Gael Thomas Work Phone: [facility] 04-28-2023 09:47-0400 Respiratory rate 20 /min MD Gael Thomas Work Phone: [facility] 04-28-2023 09:47-0400 SaO2% (BldA) [Mass fraction] 97 % MD Gael Thomas Work Phone: [facility] 04-28-2023 09:47-0400 Systolic blood pressure 126 mm[Hg] MD Gael Thomas Work Phone: [facility] 04-28-2023 09:32-0400 Inhaled oxygen flow rate 2 L/min MD Gael Thomas Work Phone: [facility] 04-28-2023 07:07-0400 Body height 166.37 cm MD Gael Thomas Work Phone: [facility] 04-28-2023 07:07-0400 Body weight 80.73 kg MD Gael Thomas Work Phone: [facility] 04-01-2023 12:33-0400 Body height 166.4 cm HARMONY Guillermo MD Work Phone: [facility] 04-01-2023 12:33-0400 Body temperature 98.01 [degF] HARMONY Guillermo MD Work Phone: [facility] 04-01-2023 12:33-0400 Body weight 78.93 kg HARMONY Guillermo MD Work Phone: [facility] 04-01-2023 12:33-0400 Diastolic blood pressure 78 mm[Hg] HARMONY Guillermo MD Work Phone: [facility] 04-01-2023 12:33-0400 Heart rate 86 /min HARMONY Guillermo MD Work Phone: [facility] 04-01-2023 12:33-0400 Respiratory rate 16 /min HARMONY Guillermo MD Work Phone: [facility] 04-01-2023 12:33-0400 SaO2% (BldA) [Mass fraction] 97 % HARMONY Guillermo MD Work Phone: [facility] 04-01-2023 12:33-0400 Systolic blood pressure 115 mm[Hg] HARMONY Guillermo MD Work Phone: [facility] 10-22-2022 15:26-0400 Blood Pressure Location [facility]leta [facility] [place] 10-22-2022 15:26-0400 Diastolic blood pressure 80 mm[Hg] Violeta AMEZCUAL [facility] [place] 10-22-2022 15:26-0400 Heart rate 74 /min Violeta AMEZCUAL [facility] [place] 10-22-2022 15:26-0400 Respiratory rate 16 /min Violeta AMEZCUAL [facility] [place] 10-22-2022 15:26-0400 Systolic blood pressure 122 mm[Hg] Violeta AMEZCUAL [facility] [place] Encounters Encounter Date Encounter Type Care Provider Facility Start: 08-17-2024 End: 08-18-2024 Telephone encounter Azam Guillermo MD Work Phone: [facility] Comment on above: Appointment; Patient Update Start: 07-22-2024 End: 07-22-2024 Refill Azam Guillermo MD Work Phone: [facility] Comment on above: Refill Request Start: 07-19-2024 End: 07-19-2024 Telephone encounter Joey Meadows MD Work Phone: [facility] Start: 07-15-2024 End: 07-18-2024 Telephone encounter Azam Guillermo MD Work Phone: [facility] Comment on above: Orders Start: 07-08-2024 End: 07-08-2024 Telephone encounter Azam Guillermo MD Work Phone: [facility] Comment on above: Orders Start: 07-08-2024 End: 07-08-2024 ambulatory GAEL THOMAS Facility:[facility] Start: 07-05-2024 End: 07-05-2024 ambulatory Azam GUILLERMO Facility:[facility] Start: 07-05-2024 End: 07-05-2024 Patient encounter procedure Lab[facility] Work Phone: [facility] Comment on above: Thyroid cancer (HCC) (Primary Dx) Start: 07-04-2024 End: 07-04-2024 Patient encounter procedure Lab[facility] [place] Work Phone: [facility] Comment on above: Thyroid cancer (HCC) (Primary Dx) Start: 07-04-2024 End: 07-04-2024 ambulatory Azam GUILLERMO Facility:[facility] Start: 06-28-2024 End: 06-28-2024 Telephone encounter Azam Guillermo MD Work Phone: [facility] Comment on above: Orders Start: 01-25-2024 Orders Only Azam calderon MD Work Phone: [facility] Start: 01-19-2024 End: 01-19-2024 ambulatory Azam GUILLERMO Facility:[facility] Start: 01-19-2024 End: 01-19-2024 Patient encounter procedure Azam Guillermo MD Work Phone: [facility] Comment on above: Thyroid cancer (HCC) (Primary Dx) Start: 01-05-2024 End: 01-05-2024 ambulatory GAEL THOMAS Facility:[facility] Start: 11-18-2023 End: 11-18-2023 ambulatory JOEY MEADOWS Not Available Start: 10-05-2023 Refill Azam calderon MD Work Phone: [facility] Comment on above: Refill Request Start: 09-04-2023 ambulatory BRIAN JOVANY Epps [facility] [place] Start: 08-27-2023 Refill Azam calderon MD Work Phone: [facility] Comment on above: Med Change Request Start: 08-27-2023 End: 08-27-2023 Patient encounter procedure Azam Guillermo MD Work Phone: [facility] Comment on above: Thyroid cancer (HCC) (Primary Dx) Start: 08-27-2023 End: 08-27-2023 ambulatory Azam GUILLERMO Facility:[facility] Start: 08-26-2023 End: 08-27-2023 ambulatory [facility] Start: 08-19-2023 End: 08-19-2023 ambulatory JOEY H TIMMIS Not Available Start: 07-15-2023 End: 07-15-2023 ambulatory JOEY H TIMMIS Not Available Start: 07-01-2023 End: 07-01-2023 ambulatory JOEY H TIMMIS Not Available Start: 06-17-2023 End: 06-17-2023 Patient encounter procedure Azam Guillermo MD Work Phone: [facility] Comment on above: Thyroid cancer (HCC) (Primary Dx) Start: 06-03-2023 End: 06-03-2023 ambulatory Temo Guillermo Facility:[facility] Start: 06-03-2023 End: 06-03-2023 Patient encounter procedure Azam Guillermo MD Work Phone: [facility] Comment on above: Thyroid cancer (HCC) (Primary Dx) Start: 06-03-2023 End: 06-03-2023 ambulatory MD Gael Thomas Work Phone: [facility] Work Phone: Start: 06-03-2023 End: 06-03-2023 Patient encounter procedure MD Gael Thomas Work Phone: [facility] Work Phone: Start: 06-02-2023 End: 06-02-2023 Patient encounter procedure [facility] Work Phone: [facility] Comment on above: Thyroid cancer (HCC) (Primary Dx) Start: 06-01-2023 End: 06-01-2023 Patient encounter procedure [facility] [place] Work Phone: [facility] Comment on above: Thyroid cancer (HCC) (Primary Dx) Start: 05-22-2023 ambulatory [facility] Start: 05-08-2023 Refill G Oracio calderon MD Work Phone: [facility] Comment on above: Refill Request Start: 04-28-2023 End: 04-28-2023 ambulatory Imad Asaad Facility:[facility] Start: 04-28-2023 End: 04-28-2023 Admission to same day surgery center MD Gael Thomas Work Phone: [facility] Work Phone: Start: 04-28-2023 End: 04-28-2023 ambulatory MD Gael Thomas Work Phone: [facility] Work Phone: Start: 04-21-2023 End: 04-21-2023 ambulatory Imad Asaad Other [employer] Other Start: 04-21-2023 Telephone encounter Imad Asaad [facility] Start: 04-09-2023 Patient encounter procedure [facility] Provider [facility] Department Start: 04-02-2023 Orders Only G Oracio calderon MD Work Phone: [facility] Start: 04-01-2023 End: 04-01-2023 Patient encounter procedure [facility] [place] Work Phone: [facility] Comment on above: Thyroid cancer (HCC) (Primary Dx) Start: 03-20-2023 Evaluation and management of inpatient ANNALISE CLIFFEL [facility] Start: 03-19-2023 Evaluation and management of inpatient HARSHAL ARREDONDO [facility] Start: 03-19-2023 Evaluation and management of inpatient GLEN DUPONT [facility] Start: 03-19-2023 End: 03-20-2023 Evaluation and management of inpatient KOJO FREITAS [facility] Start: 11-18-2022 ambulatory Violeta TINOCO Facility : [facility] Start: 11-11-2022 End: 11-11-[address] GAEL THOMAS . Facility: Start: 11-05-2022 End: 11-06-[address] VIOLETA TINOCO . Facility:[facility] Start: 10-30-2022 End: 10-31-[address] GAEL THOMAS . Facility: Start: 10-22-2022 End: 10-23-2022 ambulatory Violeta TINOCO Facility: [facility] Start: 10-22-2022 End: 10-22-2022 Patient encounter procedure Violeta TINOCO [facility] Start: 09-17-2022 ambulatory Violeta TINOCO Facility :[facility] Start: 08-22-2022 End: 08-23-[address] GAEL THOMAS . Facility: Start: 02-19-2022 End: 02-20-[address] GAEL THOMAS . Facility: Procedures Date Procedure Procedure Detail Performing Clinician Start: 04-28-2023 End: 04-28-2023 Colonoscopy MD Gael Thomas Work Phone: Start: 04-01-2023 Assay of thyroglobulin Azam Guillermo MD Work Phone: Start: 02-19-[address] TOBIN THOMAS . Comment on above: Performed By: #### [facility] ####[facility] [id number] [place], [place] [address]Wr. Yilan Han Colonoscopy Violeta TINOCO Plan of Treatment Date Care Activity Detail Author Start: 04-28-2033 Screening for malign ant neoplasm of colon [facility] Start: 2030 RSV Vaccine (1 - 1-d ose 75+ series) RSV Vaccine (1 - 1-dose 75+ series) [facility] Start: 02-19-2027 Prostate Cancer Screening Discussion Prostate Cancer Screening Discussion [facility] Start: 02-19-2027 Prostate specific antigen measurement Prostate Cancer Screening Discussion [facility] Start: 03-20-2026 Diabetes Screening Diabetes Screenin g [facility] Start: 10-13-2024 End: 10-13-2024 Patient encounter procedure 10/13/2024 9:15 AM EDT Office Visit Rad[facility] Oncology [address] [place] [address] Azam Guillermo MD [address] [place] [address] follow up after labs [facility] Comment on above: follow up after labs Start: 10-06-2024 End: 01-05-2025 Thyroglobulin and Thyrogobulin Ab panel - Serum or Plasma THYROGLOBULIN, SERUM WITH REFLEX TO IA OR LC-MS/MS Lab Routine Thyroid cancer (HCC) Expected: 10/06/2024, Expires: 01/05/2025 [facility] Comment on above: Expected: 10/06/2024 , Expires: 01/05/2025 Start: 10-06-2024 End: 01-05-2025 Thyrotropin [Units/volume] in Serum or Plasma THYROID STIMULATING HORMONE Lab Routine Thyroid cancer (HCC) Expected: 10/06/2024, Expires: 01/05/2025 [facility] Work Phone: Comment on above: Expected: 10/06/2024 , Expires: 01/05/2025 Start: 10-06-2024 End: 01-05-2025 Thyroxine (T4) [Mass/volume] in Serum or Plasma T4/THYROXINE Lab Routine Thyroid cancer (HCC) Expected: 10/06/2024, Expires: 01/05/2025 [facility] Comment on above: Expected: 10/06/2024 , Expires: 01/05/2025 Start: 10-06-2024 End: 10-06-2024 Patient encounter procedure 10/06/2024 9:00 AM EDT Office Visit [facility] [address] [place] [address] lab [facility] Comment on above: lab Start: 07-27-2024 Advance Directive Discussion Advance Directive Discussion [facility] Start: 07-18-2024 End: 07-18-2024 Patient encounter procedure 07/18/2024 9:00 AM EST Office Visit Rad[facility] Oncology [address] [place] [address] Azam Guillermo MD [address] [place] [address] followup Needds this due to Xmas* [facility] Comment on above: followup Needds th is due to Xmas* Start: 07-15-2024 End: 10-14-2024 Thyroglobulin and Thyrogobulin Ab panel - Serum or Plasma THYROGLOBULIN, SERUM WITH REFLEX TO IA OR LC-MS/MS Lab Routine Thyroid cancer (HCC) Expected: 07/15/2024, Expires: 10/14/2024 [facility] Work Phone: Comment on above: Expected: 07/15/2024 , Expires: 10/14/2024 Start: 07-08-2024 End: 10-07-2024 THYROGLOBULIN BY LC-MS/MS, SERUM OR PLASMA, FOR THYROGLOBULIN ANTIBODY INTERFERENCE [facility] Work Phone: Comment on above: Expected: 07/08/2024 , Expires: 10/07/2024 Start: 07-08-2024 End: 07-08-2024 Patient encounter procedure 07/08/2024 9:00 AM EST Office Visit [facility] [address] [place] [address] lab- Thyroglobulin ONLY [facility] Comment on above: lab- Thyroglobulin O NLY Start: 07-05-2024 End: 07-05-2024 Patient encounter procedure 07/05/2024 9:00 AM EST Office Visit Radiation Oncology [address] [place] [address] Thyrogen [facility] Comment on above: Thyrogen Start: 07-04-2024 End: 10-03-2024 THYROGLOBULIN BY LC-MS/MS, SERUM OR PLASMA, FOR THYROGLOBULIN ANTIBODY INTERFERENCE THYROGLOBULIN BY LC-MS/MS, SERUM OR PLASMA, FOR THYROGLOBULIN ANTIBODY INTERFERENCE Lab Routine Thyroid cancer (HCC) Expected: 07/04/2024, Expires: 10/03/2024 [facility] Comment on above: Expected: 07/04/2024 , Expires: 10/03/2024 Start: 07-04-2024 End: 10-03-2024 Thyrotropin [Units/volume] in Serum or Plasma THYROID STIMULATING HORMONE Lab Routine Thyroid cancer (HCC) Expected: 07/04/2024, Expires: 10/03/2024 [facility] Comment on above: Expected: 07/04/2024 , Expires: 10/03/2024 Start: 07-04-2024 End: 10-03-2024 Thyroxine (T4) [Mass/volume] in Serum or Plasma T4/THYROXINE Lab Routine Thyroid cancer (HCC) Expected: 07/04/2024, Expires: 10/03/2024 [facility] Comment on above: Expected: 07/04/2024 , Expires: 10/03/2024 Start: 07-04-2024 End: 07-04-2024 Patient encounter procedure [facility] Comment on above: Draw T4, Tsh, and Th yroglobulin level Prior to injection Thyrogen Start: 03-27-2024 Covid-19 Vaccine () Covid-[address] Vacc[address] () [facility] Start: 03-27-2024 Influenza vaccination [facility] Start: 12-26-2023 End: 03-26-2024 THYROGLOBULIN BY LC-MS/MS, SERUM OR PLASMA, FOR THYROGLOBULIN ANTIBODY INTERFERENCE THYROGLOBULIN BY LC-MS/MS, SERUM OR PLASMA, FOR THYROGLOBULIN ANTIBODY INTERFERENCE Lab Routine Thyroid cancer ([facility]) Expected: 12/26/2023, Expires: 03/26/2024 [facility] Work Phone: Comment on above: Expected: 12/26/2023 , Expires: 03/26/2024 Start: 12-26-2023 End: 03-26-2024 Thyrotropin [Units/volume] in Serum or Plasma TSH BLD Lab Routine Thyroid cancer ([facility]) Expected: 12/26/2023, Expires: 03/26/2024 [facility] Work Phone: Comment on above: Expected: 12/26/2023 , Expires: 03/26/2024 Start: 12-26-2023 End: 03-26-2024 Thyroxine (T4) [Mass/volume] in Serum or Plasma T4/THYROXINE BLOOD Lab Routine Thyroid cancer (HCC) Expected: 12/26/2023, Expires: 03/26/2024 [facility] Work Phone: Comment on above: Expected: 12/26/2023 , Expires: 03/26/2024 Start: 08-27-2023 End: 11-26-2023 Thyrotropin [Units/volume] in Serum or Plasma TSH BLD Lab Routine Thyroid cancer (HCC) Expected: 08/27/2023 (Approximate), Expires: 11/26/2023 [facility] Work Phone: Comment on above: Expected: 08/27/2023 (Approximate), Expires: 11/26/2023 Start: 08-27-2023 End: 11-26-2023 Thyroxine (T4) [Mass/volume] in Serum or Plasma T4/THYROXINE BLOOD Lab Routine Thyroid cancer (HCC) Expected: 08/27/2023 (Approximate), Expires: 11/26/2023 [facility] Work Phone: Comment on above: Expected: 08/27/2023 (Approximate), Expires: 11/26/2023 Start: 07-27-2023 Advance Directive Discussion Advance Directive Discussion [facility] Start: 07-27-2023 Behavioral Health Screening Behavioral Health Screening [facility] Start: 07-27-2023 Depression Assessment Depression Ass essment [facility] Start: 06-10-2023 Radionuclide localization of tumor, whole body NM thyroid ca whole body [facility] Start: 06-03-2023 Oral radionuclide therapy NM tx radpharm oral [facility] Start: 04-28-2023 [facility] Start: 04-01-2023 End: 06-01-2023 THYROGLOBULIN BY MASS SPECTROMETRY THYROGLOBULIN BY MASS SPECTROMETRY Lab Routine Thyroid cancer (HCC) Expected: 04/01/2023, Expires: 06/01/2023 [facility] Work Phone: Comment on above: Expected: 04/01/2023 , Expires: 06/01/2023 Start: 03-27-2023 Covid-19 Vaccine () Covid-[address] () [facility] Start: 03-27-2023 Influenza vaccination [facility] Start: 07-27-2022 ADVANCE DIRECTIVE DISCUSSION ADVANCE DIRECTIVE DISCUSSION [facility] Start: 07-27-2022 DEPRESSION ASSESSMENT DEPRESSION ASS ESSMENT [facility] Start: 05-19-2022 COVID-19 VACCINE (5 - Pfizer series) COVID-19 VACCINE (5 - Pfizer series) [facility] Start: 2020 Pneumococcal Vaccine : 65+ (1 - PCV) Pneumococcal Vaccine: 65+ (1 - PCV) [facility] Start: 2020 Pneumococcal Vaccine : 65+ (1 of 1 - PCV) Pneumococcal Vaccine: 65+ (1 of 1 - PCV) [facility] Start: 2020 Pneumococcal Vaccine : 65+ Years (1 of 1 - PCV) Pneumococcal Vaccine: 65+ Years (1 of 1 - PCV) [facility] Start: 2020 PNEUMOCOCCAL: 65+ (1 - PCV) PNEUMOCOCCAL: 65+ (1 - PCV) [facility] Start: 2015 RSV Vaccine (1 - 1-d ose 60+ series) RSV Vaccine (1 - 1-dose 60+ series) [facility] Start: 2010 PROSTATE CANCER SCREENING DISCUSSION PROSTATE CANCER SCREENING DISCUSSION [facility] Start: 2005 Pneumococcal Vaccine : 50+ (1 of 1 - PCV) Pneumococcal Vaccine: 50+ (1 of 1 - PCV) [facility] Start: 2005 SHINGRIX VACCINE (1 of 2) SHINGRIX VACCINE (1 of 2) [facility] Start: 2000 COLOGUARD (FIT-DNA) COLOGUARD (FIT-D NA) [facility] Start: [address] [facility] Start: 2000 COLORECTAL CANCER SCREENING COLORECTAL CANCER SCREENING [facility] Start: [address] COLONOGRAPHY [facility] Start: 2000 DIABETES SCREEN DIABETES SCREEN [facility] Start: 2000 Diabetes Screening Diabetes Screenin g [facility] Start: 2000 FECAL OCCULT BLOOD FECAL OCCULT BLOO D [facility] Start: 2000 Screening for malign ant neoplasm of colon [facility] Start: 2000 [facility] Start: 1990 Lipid 1996 panel - S john or Plasma Lipid Screening [facility] Start: 1990 Lipid panel Lipid Screening [facility] Start: 1990 LIPID SCREEN LIPID SCREEN [facility] Start: [address] [facility] Start: 1973 Anxiety Screening Anxiety Screening [facility] Start: 1973 Depression Screening Depression Scre ening [facility] Start: 1973 HEPATITIS C SCREENING HEPATITIS C [facility] Start: 1973 Hepatitis C screening Hepatitis C [facility] Start: 1955 ABDOMINAL AORTIC ANEURYSM SCREENING ABDOMINAL AORTIC ANEURYSM SCREENING [facility] Start: 1955 Abdominal aortic aneurysm screening Abdominal Aortic Aneurysm Screening [facility] Start: 1955 Screening for malign ant neoplasm of colon [facility] Patient Education Colon polyps Diverticulosis Hemorrhoids (DC) [facility] Work Phone: End: 04-30-2024 Rp therapy oral administration NM THERAPY THYROID I-131 Radiology Routine Thyroid cancer (HCC) 1 Occurrences starting 04/01/2023 until 04/30/2024 [facility] Work Phone: Comment on above: 1 Occurrences starti ng 04/01/2023 until 04/30/2024 [facility] Immunizations Immunization Date Immunization Notes Care Provider Marsha moreno 03-24-2022 SARS-CoV-2 mRNA (diaxpqwhsgl-pqrz-yjjt ose) vaccine Violeta TINOCO [facility] 10-16-2021 SARS-CoV-2 mRNA (ufzwtjaxzkd-xcks-hbga ose) vaccine Violeta TINOCO [facility] 04-17-2021 SARS-CoV-2 (COVID-19 ) mRNA BNT-162m1 vax Violeta TINOCO [facility] 03-27-2021 SARS-CoV-2 (COVID-19 ) mRNA BNT-162b2 vax Violeta TINOCO [facility] NEGATED: Highlighted row has not occurred!10-22-2022 influenza virus vaccine, unspecified formulation Violeta TINOCO [facility] [place] Payers Date Payer Category Payer Self-pay 2020 Medicare HUMANA MEDICARE HU[employer]NA MEDICARE PPO [id number] 2020-Present [phone] [address] [address] [place] [id number] PPO [id number] 2020 Medicare (Managed Care) HU[employer]NA EDICARE ADVANTAGE [id number] 1959 Medicare [id number] 1955 Unknown [id number] 2.16.840.1.416039.3.579. 2.593 1955 Unknown [id number] 2.16.840.1.586765.3.579. 2.593 1955 Unknown [id number] 2.16.840.1.323392.3.579. 2.593 1955 Unknown [id number] 2.16.840.1.082766.3.579. 2.593 1955 Unknown [id number] 2.16.840.1.771154.3.579. 2.593 1955 Unknown [id number] 2.16.840.1.598832.3.579. 2.727 1955 Unknown [id number] 2.16.840.1.529369.3.579. 2.727 1955 Unknown [id number] 2.16.840.1.993337.3.579. 2.727 1955 Unknown [id number] 2.16.840.1.329018.3.579. 2.727 1955 Unknown [id number] 2.16.840.1.360768.3.579. 2.1259 1955 Unknown [id number] 2.16.840.1.178567.3.579. 2.1259 1955 Unknown [id number] 2.16.840.1.248372.3.579. 2.1259 1955 Unknown [id number] 2.16.840.1.769501.3.579. 2.125 Unknown [id number] 2.16.840.1.718423.3.579. 2.531 Unknown [id number] 2.16.840.1.104123.3.579. 2.531 Social History Date Type Detail Facility Start: 10-22-2022 End: 07-04-2024 Tobacco smoking status Ex-smoker (finding) [facility] [place] Tobacco smoking status Never [facility] [place] Start: 04-01-2023 End: 01-19-2024 Sex Assigned At Male [facility]ucky Rader [facility] Start: 07-27-1974 End: 07-27-1982 History of tobacco use Current smoker [facility] Start: 07-27-1974 End: 07-27-1982 History of tobacco use Cigarette Smoker [facility] Start: 04-01-2023 End: 01-19-2024 Cigarettes smoked current (pack per day) - Reported 0.5 [facility] Start: 04-01-2023 End: 07-04-2024 Tobacco use and exposure Smokeless tobacco non-user [facility] Start: 04-01-2023 End: 07-05-2024 Alcohol intake Ex-drinker (finding) [facility] Start: 1955 Sex Assigned At Not on file [facility] Start: 1955 Sex Assigned At Male [facility] Start: 11-18-2023 Alcoholic beverage intake Lifetime non-drinker (finding) [facility] Goals Date Patient Goal Desired Activity /State Functional Status Date Assessment Result Facility 10-22-2022 Functional Status N/A [facility] Clinical Notes 10-22-2022 to 08-18-2024 Telephone Encounter - Sherie Reich RN - 08/18/2024 11:28 AM ESTTelephone Encounter - Sherie Reich RN - 08/18/2024 11:28 AM ESTTelephone Encounter - Valeria Ellington - 08/18/2024 9:40 AM EST Note Date & Type Note Facility 08-18-[address] Guillermo please sign pended orders. Sherie Reich RN [facility] 08-18-[address] Guillermo please sign pended orders. Sherie Reich RN Arvind is scheduled for his labs on 10/06/24 at 9:00AM and his follow up with Dr Guillermo on 10/13/24at 9:15AM Valeria Ellington PSS I notified Arvind that per [facility] lab client services states there's still a national shortage for the Thyroglobulin interference reagent. Dr. Guillermo would like to increase his current Synthroid dose from 125mcg daily to 137mcg daily. Dr. Guillermo would like to schedule a follow up with labs in 2 months. Arvind verbalized understanding of the above. PSS: please schedule follow up in 2 months with labs prior. Dr. Guillermo: Please sign pended lab orders and new prescription. Thanks Sherie Reich RN documented in this encounter [facility] 08-18-2024 Telephone encounter Note Arvind is scheduled for his labs on 10/06/24 at 9:00AM and his follow up with Dr Guillermo on 10/13/24at 9:15AM Valeria Ellington PSS [facility] 08-17-2024 Telephone encounter Note I notified Arvind that per [facility] lab client services states there's still a national shortage for the Thyroglobulin interference reagent. Dr. Guillermo would like to increase his current Synthroid dose from 125mcg daily to 137mcg daily. Dr. Guillermo would like to schedule a follow up with labs in 2 months. Arvind verbalized understanding of the above. PSS: please schedule follow up in 2 months with labs prior. Dr. Guillermo: Please sign pended lab orders and new prescription. Thanks Sherie Reich RN [facility] 07-19-2024 Telephone encounter Note Pt called in, he wants to know if you can refill omeprazole? His pharmacy is [facility] in [place]. [facility] 07-19-2024 Miscellaneous Notes Pt called in, he wants to know if you can refill omeprazole? His pharmacy is [facility] in [place]. documented in this encounter [facility] 07-18-2024 Telephone encounter Note Appointment canceled Valeria Ellington PSS [facility] 07-18-2024 Miscellaneous Notes Appointment canceled Valeria Ellington PSS Call placed to pt to notify pt that results are not back yet. LM requesting pt CB to notify us that he did receive this message. PSS- please cancel follow up this am. Aurea Chu RN I update Arvind and his of the pending thyroglobulin results. I told them nursing would call him 07/18/24 a.m. to notify him if he should keep his follow up scheduled at 9:00 or if we need to reschedule. They are both thankful for the call and explanation. Sherie Reich RN I called and spoke with Jd at [facility] lab client services. I asked if the Thyroglobulin interference testing drawn 07/04/24 (pre Thyrogen injection) and 07/08/24 (post Thyrogen injection) can be replaced with Thyroglobulin reflex since the interference reagent is currently on a national shortage. She states she will notify our office with an update bebo. Arvind has a follow up currently scheduled with Dr. Guillermo 07/18/[address] Guillermo: Please sign pended Thyrogen reflex orders. I notified Jd that we will not cancel the interference orders until we find out if they can be replaced with the reflex orders. Sherie Reich RN documented in this encounter [facility] 07-18-2024 Telephone encounter Note Call placed to pt to notify pt that results are not back yet. LM requesting pt CB to notify us that he did receive this message. PSS- please cancel follow up this am. Aurea Chu RN [facility] 07-15-2024 Telephone encounter Note I update Arvind and his of the pending thyroglobulin results. I told them nursing would call him 07/18/24 a.m. to notify him if he should keep his follow up scheduled at 9:00 or if we need to reschedule. They are both thankful for the call and explanation. Sherie Reich RN [facility] 07-15-2024 Telephone encounter Note I called and spoke with Jd at [facility] lab client services. I asked if the Thyroglobulin interference testing drawn 07/04/24 (pre Thyrogen injection) and 07/08/24 (post Thyrogen injection) can be replaced with Thyroglobulin reflex since the interference reagent is currently on a national shortage. She states she will notify our office with an update bebo. Arvind has a follow up currently scheduled with Dr. Guillermo 07/18/[address] Guillermo: Please sign pended Thyrogen reflex orders. I notified Jd that we will not cancel the interference orders until we find out if they can be replaced with the reflex orders. Sherie Reich RN [facility] 07-05-2024 Note HNO ID: [id number] Author: SHERIE REICH RN Service: ? Author Type: Registered Nurse Type: Progress Notes Filed: 07/05/2024 09:50 Note Text: Patient reminded of lab appointment 07/08/24. Sherie Reich RN [facility] 07-05-2024 History of Presen t illness Narrative Patient reminded of lab appointment 07/08/24. Sherie Reich RN documented in this encounter [facility] 06-28-2024 Telephone encounter Note Pharmacist: Will you please enter Thyrogen orders and route to Dr. Guillermo. Patient is scheduled 07/04 and 07/05. Thanks Sherie Reich RN [facility] 06-28-2024 Miscellaneous Notes Pharmacist: Will you please enter Thyrogen orders and route to Dr. Guillermo. Patient is scheduled 07/04 and 07/05. Thanks Sherie Reich RN documented in this encounter [facility] 01-19-2024 History of Presen t illness Narrative [...] by: Azam Guillermo MD cc: Gael Thomas [facility] [place] [address] Joey Meadows MD [address] [facility] [address] [facility] [address] documented in this encounter [facility] 01-19-2024 Note HNO ID: [id number] Author: Azam GUILLERMO MD Service: ? Author [...] by: Azam Guillermo MD cc: Gael Thomas [address] [place] [phone] Joey Meadows MD [address] 10-05-2023 Miscellaneous Notes Please review and sign if agreeable. Aurea Chu RN documented in this encounter [facility] 09-04-2023 Note Subjective Patient ID: Arvind [...] past 36 hour(s)). No follow-ups on file. [facility] 08-27-2023 Note HNO ID: [id number] Author: Azam GUILLERMO MD Service: ? Author [...] Signed by: Azam Guillermo MD cc: Gael Samir Thomas [address] [place] [phone] Joey Meadows MD [address] [place] [id number] [facility] 08-27-2023 History of Presen t illness Narrative [...] by: Azam Guillermo MD cc: Gael Thomas [address] [place] [phone] Joey Meadows MD [address] [place] [address] documented in this encounter [facility] 06-17-2023 History of Presen t illness Narrative [...] by: Azam Guillermo MD cc: Gael Thomas [address] [place] [phone] Joey Meadows MD [address] [place] [address] [address] [facility] [address] documented in this encounter [facility] 06-03-2023 History of Presen t illness Narrative PATIENT NAME: Arvind Rm PATIENT : 1955 See note at [facility] documented in this encounter [facility] 05-22-2023 Note Subjective Patient ID: Arvind [...] past 36 hour(s)). No follow-ups on file. [facility] 05-22-2023 Note Subjective Patient ID: Arvind Rm is a 68 y.o. male who presents for No chief complaint on file.. HPI 68 y.o. male with history of RLE DVT, seen at [facility] on 03/19. Patient has no history of [...] past 36 hour(s)). No follow-ups on file. [facility] 04-28-2023 History and physical note Note Date/Time April 28, 2023 8: 05am [facility] [address] [place] [address] Gastroenterology H&P Signed Patient: Arvind Rm MR#: [id number] : 1955 Acct:[id number] Age/Sex: 68 / M Adm Date: 3 Loc: Room: Type: [facility] Attending Dr: Modesto Guzmán MD Copies [...] signed by Modesto Guzmán MD> 04/28/23 0805 [facility] Work Phone: [phone] [facility] Nurse Note* Sherie Reich LPN [...] assist. Sherie Reich LPN [facility] History of Present illness Narrative* Azam Guillermo [...] by: Azam Guillermo MD cc: Gael Thomas [address] [place] [phone] Joey Meadows MD [address] [place] [address] [facility] Note03/20/23 1246 Admission Assessment Questions Verify [...] He has no history of HHC or SNF.[facility]08-25-2023 Note Attestation signed by Harshal Arredondo MD at 03/20/2023 4:02 PM Review the CAT scan that was done for the veins. 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 With this, patient can be treated only with anticoagulation with no need for any operative intervention. [facility] Vascular Surgery DAILY PROGRESS NOTE Subjective [...] gtt Start regular diet NPO at midnight Devendar Duffy MD Vascular Surgery Service General Surgery Resident, PGY-1 03/20/23[facility]04-12-2023 NoteOPERATIVE NOTE OPERATION DATE: 11/05/2022 PREOPERATIVE [...] within one year. CC: Gael Thomas M.D.[id number] NoteChief Complaint consultation for screening colonoscopy HPI Staff 67 year old male presents on consultation from Dr. Thomas for screening colonoscopy. Denies abdominal or rectal pain. No rectal bleeding or change in bowel habits. Denies nausea or vomiting. No unexplained weight loss. Last colonoscopy completed greater than 10 years ago; reported normal per patient. B keviner with history of colon polyp. Sister with [...] inactivated - Not Given Patient Refuses SARSCoV2 mRNA(yotbzuqog-vxdk-wsmimh) vac 03/24/2022 Recorded SARSCoV2 mRNA(hbmtsiuyl-yxqq-nzubgb) vac 10/16/2021 Recorded SARS-CoV-2 (COVID-19) mRNA BNT-162b2 vax 04/17/2021 Recorded SARS-CoV-2 (COVID-19) mRNA BNT-162b2 vax 03/27/2021 RecordedMarion HospitalComment on above:Result Comment: Electronically Signed By: DAVIDA CHIN, Violeta Vallecillo\Date and Time Signed: 10/22/22 16:00 EDTEvaluation + Plan note No data available for this section [facility] [place] Evalunawqi note* Diagnosis Thyroid cancer (HCC)- Primary Malignant neoplasm of thyroid gland [facility] Diagnosis Thyroid cancer (HCC)- Primary Malignant neoplasm of thyroid gland [facility] noteNo InformationNort [employer] Other Evaluyqrdy noteNo assessment information available [facility] Work Phone: Evalurwrsn note* Diagnosis Thyroid cancer (HCC)- Primary Malignant neoplasm of thyroid gland [facility]* Diagnosis Thyroid cancer (HCC)- Primary Malignant neoplasm of thyroid gland [facility]* Diagnosis Thyroid cancer (HCC)- Primary Malignant neoplasm of thyroid gland [facility] Diagnosis Thyroid cancer (HCC)- Primary Malignant neoplasm of thyroid gland [facility] Diagnosis Thyroid cancer (HCC)- Primary Malignant neoplasm of thyroid gland [facility]* Diagnosis Thyroid cancer (HCC)- Primary Malignant neoplasm of thyroid gland [facility] Diagnosis Thyroid cancer (HCC)- Primary Malignant neoplasm of thyroid gland [facility]* Diagnosis Thyroid cancer (HCC)- Primary Malignant neoplasm of thyroid gland [facility]* Diagnosis Thyroid cancer (HCC)- Primary Malignant neoplasm of thyroid gland documented [facility]* Diagnosis LPRD (laryngopharyngeal reflux disease)- Primary Acute laryngitis, without mention of obstruction [facility] Diagnosis Thyroid cancer (HCC)- Primary Malignant neoplasm of thyroid gland documented in this encounter [facility] general Narrative - Reported* Type Description Date Surgical History thyroidectomy [employer] Other Hospital Discharge instructions No data available for this section [facility] [place] [facility] Discharge instructions Additional Instructions DISCHARGE INSTRUCTIONS [...] machinery such as power tools, lawn mowers, [employer] blowers, sewing machines, etc. for 24 hours. [...] years. -Follow up with PCP. -Office number [phone]. [facility] Work Phone: Progress note No data available for this section [facility] [place] Reason for referral (narrative)* Diagnostic Procedure Only (Routine) - Pending Review Specialty Diagnoses / Procedures Referred By Contac t Referred To Contact MOLECULAR & FUNCTIONAL IMAGING Diagnoses Thyroid cancer (HCC) Procedures NM THERAPY THYROID I-131 RP THERAPY ORAL ADMINISTRATION Azam Guillermo MD [address] [place] [address] [place] [address] Molecular & Functional Imaging [address] [place] [address] Referral ID Status Reason Start Date Expiration Date Visits Requested Visits Authorized [id number] Pending Review Auto-Generat ed Referral 04/01/2023 04/30/[address] 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 Relationship Specialty Start Date End Date Gael Thomas MD [address] [place] [address] PCP - General Family Medicine 04/01/23 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 Relationship Specialty Start Date End Date Gael Thomas MD [address] [place] [address] PCP - General Family Medicine 04/01/23 Team Status: Active Member Role Status Vitaly Thomas MD Primary Care Provider Active Team Status: Inactive Member Role Status Dates Modesto Guzmán MD Attending Provider Active Gael Thomas MD Primary Care Provider Active 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 Relationship Specialty Start Date End Date Gael Thomas MD [address] [place] [address] PCP - General Family Medicine 04/01/23 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 Relationship Specialty Start Date End Date Gael Thomas MD [address] [place] [address] PCP - General Family Medicine 04/01/23 Team Status: Inactive Member Role Status Dates Temo Guillermo MD Attending Provider Active Gael Thomas MD Primary Care Provider Active 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 Relationship Specialty Start Date End Date Gael Thomas MD [address] [place] [facility] [address] PCP - General Family Medicine 04/01/23 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 Relationship Specialty Start Date End Date Gael Thomas MD [address] [place] [facility] [address] PCP - General Family Medicine 04/01/23 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 Relationship Specialty Start Date End Date Gael Thomas MD [address] [place] [facility] [address] PCP - General Family Medicine 04/01/23 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 Relationship Specialty Start Date End Date Gael Thomas MD [address] [place] [address] PCP - General Family Medicine 04/01/23 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 Relationship Specialty Start Date End Date Gael Thomas MD [address] [place] [facility] [place] [address] PCP - General Family Medicine 04/01/23 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 Relationship Specialty Start Date End Date Gael Thomas MD [address] [place] [facility] [place] [address] PCP - General Family Medicine 04/01/23 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 Relationship Specialty Start Date End Date Gael Thomas MD [address] [place] [address] PCP - General Family Medicine 04/01/23 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 Relationship Specialty Start Date End Date Gael Thomas MD [address] [place] [facility] [place] [address] PCP - General Family Medicine 04/01/23 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 Relationship Specialty Start Date End Date Gael Thomas MD [address] [facility] [address] PCP - General Family Medicine 04/01/23 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 Relationship Specialty Start Date End Date Gael Thomas MD [address] [place] [facility] [address] PCP - General Family Medicine 12/28/22 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 Relationship Specialty Start Date End Date Gael Thomas MD [address] [place] [address] PCP - General Family Medicine 04/01/23 (unrecognized sect ion and content) No Status Records FoundNo Status Records FoundNo Status Records FoundNo Status Records FoundNo Status Records FoundNo Status Records Found INFORMATION SOURCE (unrecogn ized section and content) DATE CREATED AUTHOR 11/15/2022 [facility] DATE CREATED AUTHOR AUTHOR'S ORGANIZ ATION 01/29/2023 [facility] DATE CREATED AUTHOR AUTHOR'S ORGANIZ ATION 08/08/2023 [facility] DATE CREATED AUTHOR AUTHOR'S ORGANIZ ATION 09/09/2023 [facility] DATE CREATED AUTHOR AUTHOR'S ORGANIZ ATION 11/19/2023 [facility] [facility] DATE CREATED AUTHOR AUTHOR'S ORGANIZ ATION 08/20/2024 [facility] [facility] Source Comments (unrecognize d section and content) In the event this informatio n is protected by the Federal Confidentiality of Alcohol and Drug Abuse Patient Records regulations: The Federal rules restrict any use of the information to criminally investigate or prosecute any alcohol or drug abuse patient.[facility] the event this information is protected by the Federal Confidentiality of Alcohol and Drug Abuse Patient Records regulations: The Federal rules restrict any use of the information to criminally investigate or prosecute any alcohol or drug abuse patient.[facility]In the event this information is protected by the Federal Confidentiality of Alcohol and Drug Abuse Patient Records regulations: The Federal rules restrict any use of the information to criminally investigate or prosecute any alcohol or drug abuse patient.[facility]In the event this information is protected by the Federal Confidentiality of Alcohol and Drug Abuse Patient Records regulations: The Federal rules restrict any use of the information to criminally investigate or prosecute any alcohol or drug abuse patient.[facility]In the event this information is protected by the Federal Confidentiality of Alcohol and Drug Abuse Patient Records regulations: The Federal rules restrict any use of the information to criminally investigate or prosecute any alcohol or drug abuse patient.[facility]In the event this information is protected by the Federal Confidentiality of Alcohol and Drug Abuse Patient Records regulations: The Federal rules restrict any use of the information to criminally investigate or prosecute any alcohol or drug abuse patient.[facility]In the event this information is protected by the Federal Confidentiality of Alcohol and Drug Abuse Patient Records regulations: The Federal rules restrict any use of the information to criminally investigate or prosecute any alcohol or drug abuse patient.[facility]In the event this information is protected by the Federal Confidentiality of Alcohol and Drug Abuse Patient Records regulations: The Federal rules restrict any use of the information to criminally investigate or prosecute any alcohol or drug abuse patient.[facility]In the event this information is protected by the Federal Confidentiality of Alcohol and Drug Abuse Patient Records regulations: The Federal rules restrict any use of the information to criminally investigate or prosecute any alcohol or drug abuse patient.[facility]In the event this information is protected by the Federal Confidentiality of Alcohol and Drug Abuse Patient Records regulations: The Federal rules restrict any use of the information to criminally investigate or prosecute any alcohol or drug abuse patient.[facility]In the event this information is protected by the Federal Confidentiality of Alcohol and Drug Abuse Patient Records regulations: The Federal rules restrict any use of the information to criminally investigate or prosecute any alcohol or drug abuse patient.[facility]In the event this information is protected by the Federal Confidentiality of Alcohol and Drug Abuse Patient Records regulations: The Federal rules restrict any use of the information to criminally investigate or prosecute any alcohol or drug abuse patient.[facility]In the event this information is protected by the Federal Confidentiality of Alcohol and Drug Abuse Patient Records regulations: The Federal rules restrict any use of the information to criminally investigate or prosecute any alcohol or drug abuse patient.[facility]In the event this information is protected by the Federal Confidentiality of Alcohol and Drug Abuse Patient Records regulations: The Federal rules restrict any use of the information to criminally investigate or prosecute any alcohol or drug abuse patient.[facility]In the event this information is protected by the Federal Confidentiality of Alcohol and Drug Abuse Patient Records regulations: The Federal rules restrict any use of the information to criminally investigate or prosecute any alcohol or drug abuse patient.[facility]In the event this information is protected by the Federal Confidentiality of Alcohol and Drug Abuse Patient Records regulations: The Federal rules restrict any use of the information to criminally investigate or prosecute any alcohol or drug abuse patient.[facility]In the event this information is protected by the Federal Confidentiality of Alcohol and Drug Abuse Patient Records regulations: The Federal rules restrict any use of the information to criminally investigate or prosecute any alcohol or drug abuse patient.[facility]In the event this information is protected by the Federal Confidentiality of Alcohol and Drug Abuse Patient Records regulations: The Federal rules restrict any use of the information to criminally investigate or prosecute any alcohol or drug abuse patient.[facility]In the event this information is protected by the Federal Confidentiality of Alcohol and Drug Abuse Patient Records regulations: The Federal rules restrict any use of the information to criminally investigate or prosecute any alcohol or drug abuse patient.[facility]In the event this information is protected by the Federal Confidentiality of Alcohol and Drug Abuse Patient Records regulations: The Federal rules restrict any use of the information to criminally investigate or prosecute any alcohol or drug abuse patient.[facility] HospitalIn the event this information is protected by the Federal Confidentiality of Alcohol and Drug Abuse Patient Records regulations: The Federal rules restrict any use of the information to criminally investigate or prosecute any alcohol or drug abuse patient.[facility]In the event this information is protected by the Federal Confidentiality of Alcohol and Drug Abuse Patient Records regulations: The Federal rules restrict any use of the information to criminally investigate or prosecute any alcohol or drug abuse patient.[facility]In the event this information is protected by the Federal Confidentiality of Alcohol and Drug Abuse Patient Records regulations: The Federal rules restrict any use of the information to criminally investigate or prosecute any alcohol or drug abuse patient.[facility] HospitalIn the event this information is protected by the Federal Confidentiality of Alcohol and Drug Abuse Patient Records regulations: The Federal rules restrict any use of the information to criminally investigate or prosecute any alcohol or drug abuse patient.[facility]In the event this information is protected by the Federal Confidentiality of Alcohol and Drug Abuse Patient Records regulations: The Federal rules restrict any use of the information to criminally investigate or prosecute any alcohol or drug abuse patient.[facility] Reason for Visit (unrecogniz ed section and content) Reason Comments Consult Reason Onset Date Comments Refill Request 05/08/2023 Reason Comments Thyroid Cancer Specialty Diagnoses / Procedures Referred By Amalia t Referred To Contact Diagnoses Thyroid cancer (HCC) Procedures THYROTROPIN INJECTION Azam Guillermo MD [address] [place] [address] [place] [address] [facility] [address] [place] [address] Referral ID Status Reason Start Date Expiration Date V isits Requested Visits Authorized [id number] Authorized 04/02/2023 07/26/2023 99 99 Reason Comments Prostate Cancer Reason Comments Med Change Request Reason Onset Date Comments Refill Request 10/05/2023 Reason Comments Orders Referral ID Status Reason Start Date Expiration Date V isits Requested Visits Authorized [id number] Authorized 06/29/2024 07/26/2024 99 99 Reason Onset Date Comments Refill Request 07/22/2024 Reason Comments Appointment Patient Update FOR RECORDS PERTAINING TO PATIENTS WHO ARE [...] BE BASED ON THE PRIMARY CLINICAL RECORDS. [facility] [employer] [facility]. provides no warranty or guarantee of the accuracy or completeness of information in this document.
[2024-08-23 13:43] LABS: Thyroid Stimulating Hormone 8.521 uIU/mL (0.358-3.740)
== END 2024-08-23 12:16 | disposition home or self-care (01) ==
LOC: LAB 12:16
PROVIDERS: PCP Family Medicine; Visit Provider Otolaryngology
DX: E89.0 Postprocedural hypothyroidism (principal)
CPT/HCPCS: 36415; 84443

== ENCOUNTER 2024-08-23 15:53 | Outpatient (REF) | payer MEDICARE, SELFPAY ==
[2024-08-24 16:24] LABS: Free T3 2.15 pg/mL (2.18-3.98)
== END 2024-08-23 15:54 | disposition home or self-care (01) ==
LOC: LAB 15:53
PROVIDERS: PCP Family Medicine; Visit Provider Family Medicine
DX: E89.0 Postprocedural hypothyroidism (principal); R94.6 Abnormal results of thyroid function studies
CPT/HCPCS: 36415; 84436; 84443; 84481

== ENCOUNTER 2025-05-01 12:46 | Outpatient (OUT) | payer MEDICARE, SELFPAY ==
--- OUTSIDE RECORDS SUMMARY | 2025-05-01 12:50 | XMS_ITS | CCD ---
Author Organization [facility] CliniSyga Care Team Providers Care Hospice Consultant Name Role Phone Gael Thomas Primary Care [...] MCDANIEL Consulting Unavailable KARENA, REGAN Consulting Unavailable OLIVERTOAN PERDOMO Consulting Unavailable HOY ., DR MAYO Admitting Unavailable HOY ., DR MAYO Attending Unavailable HOY ., DR MAYO Primary Care Unavailable HOY ., DR MAYO Consulting Unavailable RARITAN, DR DIANA Gonsalez Consulting Unavailable HOY ., DR MAYO Admitting Unavailable HOY ., DR MAYO Attending Unavailable HOY ., DR MAYO Primary Care Unavailable HOY ., DR MAYO Consulting Unavailable NILLVioleta R Attending Unavailable NILL, Violeta R Attending Unavailable ChrisyGael Referring Unavailable NILL, Violeta R Attending Unavailable NILL, Violeta Albert Referring Unavailable NILL, Violeta R Attending Unavailable Hoy Gael CHIN Primary Care Provider Modesto Guzmán Unavailable MD Modesto Guzmán Attending Provider MD Gael Thomas Primary Care Provider [phone] MD Modesto Guzmán Attending Provider [phone] MD Gael Thomas Primary Care Provider [phone] MD Temo Guillermo Attending Provider Asaad, Imad Admitting Unavailable Gael Thomas Primary Care Unavailable Asaad, Imad Attending Unavailable Temo Guillermo Attending Unavailable Temo Guillermo Admitting Unavailable Gael Thomas Primary Care Unavailable Gael Thomas MD Primary Care Provider [phone] TIMMIS, JOEY H Attending Unavailable TIMMIS, JOEY H Attending Unavailable TIMMIS, JOEY H Attending Unavailable IVONEMIS, JOEY H Attending Unavailable Gael Thomas MD Primary Care Provider [phone] Gael Thomas MD Primary Care Provider [phone] BRIAN AGGARWAL Attending Unavailable BRIAN AGGARWAL Referring Unavailable Azam GUILLERMO Referring Unavailable HOCharlette, GAEL M Primary Care Unavailable Azam GUILLERMO Referring Unavailable JOSIANE, GAEL M Primary Care Unavailable JOSIANE, GAEL M Primary Care Unavailable GAEL THOMAS M Primary Care Unavailable GAEL THOMAS M Primary Care Unavailable Azam GUILLERMO Attending Unavailable GAEL THOMAS M Primary Care Unavailable GAEL THOMAS M Primary Care Unavailable Allergies Allergy Classification Reported Allergen(s) Allergy Type Date of Onset Reaction(s) Facility (1 source) No Known Medication Allergies; Translations: [No Known Medication Allergies] Propensity to adverse reactions (disorder) [facility] Repository (20 sources) Clindamycin; Translations: [CLINDAMYCIN] Drug Allergy [address] [facility] (1 source) Clindamycin Drug Allergy 3 [facility] Repository (4 sources) Shellfish Propensity to adverse reactions [address] [facility] (1 source) Shellfish; Translations: [SHELLFISH DERIVED] Propensity to adverse reactions to drug (disorder) 3 [facility] Repository Medications Current Medications Medication Drug Class(es) Dates Sig (Normalized) Sig (Original) apixaban 5 mg oral tablet (20 sources) Factor Xa Inhibitor Start: 03-20-2023 End: [...] Active calcium carbonate 1500 mg oral tablet (4 sources) take 1 tablet by mouth in the morning calcium carbonate (Os-Sadi) 600 MG tablet Take 600 mg by mouth in the morning. Active cefuroxime 500 mg oral tablet (1 source) Cephalosporin Antibacterial take 1 tablet by mouth every twelve hours Cefuroxime Axetil 500 MG 1 tablet Orally Twice a day for 10 day(s) Active famotidine 20 mg oral tablet (20 sources) Histamine-2 Receptor Antagonist Start: 023 End: 025 take 1 tablet by mouth at bedtime famotidine (Pepcid) 20 MG tablet Indications: LPRD (laryngopharyngeal reflux disease) Take 1 tablet (20 mg) by mouth at bedtime 90 tablet 02/29/2024 Active Comment on above: Take 20 mg by mouth. Take 1 tablet by mireya th daily at bedtime. levothyroxine sodium 0.137 mg oral tablet (20 sources) l-Thyroxine Start: 025 End: 026 take 1 tablet by mouth before mealtime levothyroxine (Synthroid) 137 MCG tablet Indications: Postoperative hypothyroidism (CMS/HCC) Take 137 mcg by mouth in the morning. Take before meals. 30 tablet 1 08/23/2024 08/23/2025 Active Start: 04-01-2023 End: 09-14-2024 take 1 tablet by mouth before mealtime levothyroxine (Synthroid) 125 MCG tablet Indications: Postoperative hypothyroidism (CMS/HCC) Take 1 tablet (125 mcg) by mouth in the morning. Take before meals. 30 tablet 08/15/2024 08/23/2024 Discontinued take 5 tablets by mo uth before [...] magnesium oxide (Mag-Ox) 100 mg split tablet (4 sources) magnesium oxide (Mag-Ox) 100 mg split tablet Take 250 mg by mouth in the morning. Active Multi For Him 50+ (1 source) Multi For Him 50 + Active Multi Vitamins oral tablet (1 source) Start: 10-23-19 take 1 tablet by mouth once daily Multi Vitamins oral tablet 1 tab(s), Oral, Daily, Refill(s) 0 Start Date: 10/22/22 Status: Ordered Multiple Vitamin (MULTI-VITAMINS PO) (4 sources) Start: 10-23-19 take 1 tablet by mouth [...] omeprazole 40 mg delayed release oral capsule (20 sources) Proton Pump Inhibitor Start: 10-25-19 25 take 1 capsule by mouth once daily before breakfast omeprazole (PriLOSEC) [address] capsule Indications: LPRD (laryngopharyngeal reflux disease) TAKE 1 CAPSULE BY MOUTH ONCE DAILY IN THE MORNING before BREAKFAST DO NOT CRUSH OR CHEW 90 capsule 10/24/2024 Active Start: 05-25-2023 End: 10-24-2024 take 1 capsule by mouth before mealtime omeprazole (PriLOSEC) [address] capsule Indications: LPRD (laryngopharyngeal reflux disease) Take 1 capsule (40 mg) by mouth in the morning. Take before meals. Do not crush or chew.. 90 capsule 07/19/2024 10/24/2024 Discontinued Comment on above: Take 40 mg by mouth. polyethylene glycol 3350 [id number] mg / potassium chloride 2970 mg / sodium bicarbonate 6740 mg / sodium chloride 5860 mg / sodium sulfate 35147 mg powder for oral solution (1 source) Osmotic Laxative Start: 3 PEG-3350/Electrolyte s 236 GM as directed Orally once daily for 1 days Dec, Active simvastatin 20 mg oral tablet (16 sources) HMG-CoA Reductase Inhibitor Start: 4 take 1 tablet by mouth once daily [...] 0.9 mg, INTRAMUSCULAR, ONCE, 1 dose, On 07/04/24 at 0930, REFRIGERATE Problems Active Problems Problem Classification Problem Date Documented Da te Episodic/Chronic Cancer of thyroid (20 sources) Malignant tumor of thyroid gland; Translations: [Malignant neoplasm of thyroid gland] Onset: 3 04-01-2023 Chronic Complications of surgical procedures or medical care (1 source) Postoperative hypothyroidism; Translations: [Postprocedural hypothyroidism] 08-23-2024 Chronic Disorders of lipid metabolism (2 sources) Hyperlipidemia; Translations: [Hyperlipidemia, unspecified] Onset: 3 10-10-2022 Chronic Diverticulosis and diverticulitis (1 source) Diverticulosis of large intestine without perforation or abscess without bleeding; Translations: [DVRTCLOS LG INT NO PERF/ABSC W/O BL] Onset: 3 Chronic Esophageal disorders (6 sources) Laryngopharyngeal reflux; Translations: [Gastro-esophageal reflux disease [...] [Personal history of colonic polyps] Episodic Other diseases of veins and lymphatics (2 sources) Venous insufficiency (chronic) (peripheral); Translations: [Venous insufficiency (chronic) (peripheral)] Onset: 5 Episodic Other nutritional; endocrine; and metabolic disorders [...] NICOTINE DEPEND] Onset: 3 Episodic Thyroid disorders (9 sources) Nontoxic single thyroid nodule; Translations: [Thyroid nodule] Onset: 3 Chronic Unclassified (1 source) Patient encounter status 10-22-2022 Unclassified (1 source) Encounter for screening for malignant neoplasm of colon; Translations: [Encounter for screening for malignant neoplasm of colon] Onset: 3 Varicose veins of lower extremity (2 sources) Varicose veins of bilateral lower extremities with other complications; Translations: [Varicose veins of bilateral lower extremities with other complications] Onset: 5 Episodic Past or Other Problems Problem Classification Problem Date Documented Da te Episodic/Chronic Diabetes mellitus without complication (1 source) Other abnormal glucose; Translations: [OTHER ABNORMAL GLUCOSE] Onset: 02-25-2022 Episodic Other skin disorders (4 sources) Mass of neck; Translations: [Localized swelling, mass and lump, neck] Onset: 12-16-2022 12-16-2022 Episodic Other upper respiratory disease (4 sources) Hoarse; Translations: [Dysphonia] Onset: 12-29-2022 12-29-2022 Episodic Other upper respiratory disease (4 sources) Lesion of vocal cord; Translations: [Other diseases of vocal cords] Onset: 05-25-2023 05-25-2023 Episodic Phlebitis; thrombophlebitis and thromboembolism (4 sources) Acute deep vein thrombosis of lower limb; Translations: [Acute embolism and thrombosis of unspecified deep veins of right proximal lower extremity] Onset: 03-19-2023 11-18-2023 Episodic Residual codes; unclassified (1 source) Family history of epilepsy and other diseases of the nervous system; Translations: [FAM HX EPILEPSY OTH DZ NERV SYS] Onset: 02-25-2022 Episodic Thyroid disorders (4 sources) Mass of thyroid gland; Translations: [Disorder of thyroid, unspecified] Onset: 12-29-2022 12-29-2022 Episodic Results Test Name Value Interpretation Reference Range Facility T4 SerPl-ncon 04-12-2025 T4 [Mass/Vol] 10.2 ug/dL Normal 5.5-10.2 [facility] Comment on above: Order Comment: Filemon mix Type: BLOOD SPECIMEN Ordering Facility: [facility] Address: [address] [place] [address] Performed By: #### 3 026-2, 3016-3 #### [facility] CLIA [id number] [address] [place] [address] [place] TSH SerPl-aCncon 04-12-2025 TSH Qn 0.041 m[IU]/L Low 0.270-4.200 [facility] Comment on above: Order Comment: Filemon mix Type: BLOOD SPECIMEN Ordering Facility: [facility] Address: [address] [place] [address] Performed By: #### 3 026-2, 3016-3 #### [facility] CLIA [id number] [address] [place] [address] [place] Thyroglobulin and Thyrogobul in Ab panelon 04-12-2025 Thyroglobulin Ab Qn [IU]/mL Normal <4.0 [facility] Comment on above: Order Comment: Filemon mix Type: BLOOD SPECIMEN Ordering Facility: [facility] Address: [address] [place] [address] Result Comment: The Thyroglobulin Antibody test was performed using the [employer] DXI paramagnetic particle chemiluminescent immunoassay method. Results obtained with different assay methods or kits cannot be used interchangeably. Performed By: #### 5 7780-9 #### [facility] CLIA [id number] [address] [place] [address] [place] THYROGLOBULIN, SERUM 9.4 ng/mL Normal 1.6-50.0 [facility] Comment on above: Order Comment: Speci maria del rosario Type: BLOOD SPECIMEN Ordering Facility: [facility] Address: [address] [place] [address] Result Comment: The Thyroglobulin test was performed using the [employer] DXI paramagnetic particle chemiluminescent immunoassay method. Results obtained with different assay methods or kits cannot be used interchangeably. Performed By: #### 5 7780-9 #### [facility] CLIA [id number] [address] [place] [address] [place] CNOVon 10-13-2024 CNOV Office Visit (RADTSA ) SUJEYARVIND ([id number]) 1955 M Date Time Provider Department 10/13/24 9:15 AM Azam GUILLERMO During your visit today, we recorded the following information about you: Temperature Pulse Respiration Blood pressure 98.1 degrees 78/minute 18/minute 150/81 Weight 86.3 kg Azam Guillermo MD 10/13/2024 9:44 AM Signed Radiation Oncology -follow-up note PATIENT [...] ablative therapy on 06/03/2023, 74.3 mCi. HPI: Doing well denies problems. RADIOLOGY: Post I-131 whole-body scan 06/10/2023: Uptake within an area of thyroid bed only. No suspected metastatic disease. LABORATORY: Latest Reference Range AND Units 07/04/24 08:54 Pre- thyrogen 07/08/24 10:01 Post- thyrogen 10/06/24 09:01 (Spot) Thyroglobulin, LC-MS/MS 1.3 - 31.8 ng/mL 2.5 4.4 T4 5.5 - 10.2 ug/dL 7.4 8.7 TSH 0.270 - 4.200 mIU/L 8.350 (H) 0.129 (L) Thyroglobulin Ab, Serum <4.0 IU/mL <0.9 Thyroglobulin, Serum 1.6 - 50.0 ng/mL 2.1 (H): Data is abnormally high (L): Data is abnormally low Latest Reference Range AND Units 04/01/23 13:58 [...] No ALLERGIES Allergen Reactions Clindamycin Rash MEDICATIONS: simvastatin (ZOCOR) 20 mg tablet Take 20 mg by mouth daily at bedtime. levothyroxine (SYNTHROID) 137 mcg tablet Take 1 tablet by mouth daily before breakfast. PAST MEDICAL HISTORY Diagnosis Date DVT (deep venous thrombosis) (HCC) RLE Prior radiation therapy, collagen vascular disease, or inflammatory bowel disease: No PAST SURGICAL HISTORY Procedure Laterality Date THYROIDECTOMY FAMILY HISTORY Problem Relation Age of Onset Cancer Father Colon Cancer Sister Social History Tobacco Use Smoking status: Former Current packs/day: 0.00 Average packs/day: 0.5 packs/day for 5.0 years (2.5 ttl pk-yrs) Types: Cigarettes Start date: 1977 Quit date: 1982 Years since quittin.2 Smokeless tobacco: Never Substance Use Topics Alcohol [...] noted in HPI PHYSICAL EXAM: VS: BP 150/81 Pulse 78 Temp 36.7 ?C (98.1 ?F) Resp 18 Wt 86.3 kg (190 lb 4.1 oz) SpO2 97% BMI 31.18 kg/m? KPS: 100 General Appearance: Alert and [...] on 06/03/2023, 74.3 mCi. Doing well. Thyroglobulin continues to decrease. Doing well on current thyroid replacement dose. Plan to hold dose at current level recheck in 6 months. Signed by: Azam Guillermo MD cc: Gael Thomas [address] [place] [phone] Joey Rand MD [address] [place] [phone] Allergies As of Date: 10/13/2024 Noted Allergy Reaction CLINDAMYCIN 04/01/2023 2 - Rash Date Reviewed: 10/13/2024 Reviewed by: Aurea Chu RN - Fully Assessed Reason for Visit: Thyroid Cancer [879] Primary Visit Diagnosis:Thyroid cancer (HCC) [C73] Order(s):T4/THYROXINE [SQT4] Order #: [id number] FUTURE THYROID STIMULATING HORMONE [SQTSH] Order #: [id number] FUTURE THYROGLOBULIN, SERUM WITH REFLEX TO IA OR LC-MS/MS [SQTHYRORF] Order #: [id number] FUTURE levothyroxine (SYNTHROID) 137 mcg tabletTake 1 tablet by mouth daily before (more content not included)... Normal [facility] T4 SerPl-ncon 10-06-2024 T4 [Mass/Vol] 8.7 ug/dL Normal 5.5-10.2 [facility] Comment on above: Order Comment: Filemon mix Type: BLOOD SPECIMEN Ordering Facility: [facility] Address: [address] [place] [address] Performed By: #### T GMSMS #### [facility] CLIA [id number] [address] [place] [address] TSH SerPl-aCncon 10-06-2024 TSH Qn 0.129 m[IU]/L Low 0.270-4.200 [facility] Comment on above: Order Comment: Filemon mix Type: BLOOD SPECIMEN Ordering Facility: [facility] Address: [address] [place] [address] Performed By: #### T GMSMS #### [email or web address] CLIA [id number] [address] [place] [address] Thyroglobulin and Thyrogobul in Ab panelon 10-06-2024 Thyroglobulin Ab Qn [IU]/mL Normal <4.0 [facility] Comment on above: Order Comment: Filemon mix Type: BLOOD SPECIMEN Ordering Facility: [facility] Address: [address] [place] [address] Result Comment: The Thyroglobulin Antibody test was performed using the [employer] DXI paramagnetic particle chemiluminescent immunoassay method. Results obtained with different assay methods or kits cannot be used interchangeably. Performed By: #### T GMSMS #### [facility] CLIA [id number] [address] [place] [address] THYROGLOBULIN, SERUM 2.1 ng/mL Normal 1.6-50.0 [facility] Comment on above: Order Comment: Speci men Type: BLOOD SPECIMEN Ordering Facility: [facility] Address: [address] [place] [address] Result Comment: The Thyroglobulin test was performed using the [employer] DXI paramagnetic particle chemiluminescent immunoassay method. Results obtained with different assay methods or kits cannot be used interchangeably. Performed By: #### [facility] #### ON LICENSE OF [facility] CLIA [id number] [address] [place] [address] Follow-Upon 09-05-2024 Follow-Up [id number] Arvind Rm 1955 M Date Provider Department Center 09/05/2024 BRIAN RUEDA HVCVASENDO MA [facility] No family history on file Level of Service:50288 [place] OFFICE/OUTPATIENT ESTABLISHED LOW MDM 20 MIN Reason for Visit and Comments: Follow-up [859953] - Hx DVT Normal [facility] ALL THYROID STIM HORMONEon 0 08-23-2024 Interpretation and review of laboratory results Abnormal [facility] TSH Qn 8.521 m[IU]/L High [facility] CLINISYNC [facility] CNPNon 08-17-[address] [facility] Telephone (RADTSA) ARVIND RM ([id number]) 1955 M Date Time Provider Department 08/17/24 Azam GUILLERMO During your visit today, we recorded the following information about you: Sherie Reich, RN 08/17/2024 4:09 PM Signed I notified Arvind that per [facility] lab client services states there's still [...] up with Dr Guillermo on 10/13/24at 9:15AM [facility] PSS Sherie Reich RN 08/18/2024 11:[address] Guillermo please sign pended orders. Sherie Reich RN Allergies As of Date: 08/17/2024 Noted Allergy Reaction CLINDAMYCIN 04/01/2023 2 - Rash Date Reviewed: 07/05/2024 Reviewed by: Sherie Reich RN - Fully Assessed Reason for Visit: Appointment [186] Patient Update [1234] Primary Visit Diagnosis:Thyroid cancer (HCC) [C73] Order(s):THYROID STIMULATING HORMONE [SQTSH] Order #: [id number] FUTURE T4/THYROXINE [SQT4] Order #: [id number] FUTURE THYROGLOBULIN, SERUM WITH REFLEX TO IA OR LC-MS/MS [SQTHYRORF] Order #: [id number] FUTURE levothyroxine (SYNTHROID) 137 mcg tabletTake 1 [...] Encounter Status:Closed by Azam GUILLERMO on 08/18/24 [facility] 07-15-[address] [facility] Telephone (RADTSA) ARVIND RM ([id number]) 1955 M Date Time Provider Department 07/15/24 Azam GUILLERMO During your visit today, we recorded the following information about you: Sherie Reich RN 07/15/2024 1:47 PM Signed I called and spoke with Jd at [facility] lab client services. I asked if [...] [681] Primary Visit Diagnosis:Thyroid cancer (HCC) [C73] Order(s):THYROGLOBULI N, SERUM WITH REFLEX TO IA OR LC-MS/MS [SQTHYRORF] Order #: [id number] FUTURE THYROGLOBULIN, SERUM WITH REFLEX TO IA OR LC-MS/MS [SQTHYRORF] Order #: [id number] FUTURE Prescriptions as of 07/18/2024 - simvastatin [...] Encounter Status:Closed by VALERIA ELLINGTON on 07/18/24 [facility] 07-08-[address] [facility] Telephone (RADTSA) ARVIND RM ([id number]) 1955 M Date Time Provider Department 07/08/24 Azam GUILLERMO During your visit today, we recorded the following information about you: Allergies As of Date: 07/08/2024 Noted Allergy Reaction CLINDAMYCIN 04/01/2023 2 - Rash Date Reviewed: 07/05/2024 Reviewed by: Sherie Reich RN - Fully Assessed Reason for Visit: Orders [681] Primary Visit Diagnosis:Thyroid cancer (HCC) [C73] Order(s):THYROGLOBULI N BY LC-MS/MS, SERUM OR PLASMA, FOR THYROGLOBULIN ANTIBODY INTERFERENCE [SQTGMSMS] Order #: [id number] FUTURE Prescriptions as of 07/08/2024 - simvastatin [...] Encounter Status:Closed by SHERIE REICH on 07/08/24 Normal [facility] THYROGLOBULIN BY LC-MS/MS, S OJHN OR PLASMA, FOR THYROGLOBULIN ANTIBODY INTERFERENCEon 07-08-2024 THYROGLOBULIN, LC-MS/MS 4.4 ng/mL Normal 1.3-31.8 [facility] Comment on above: Order Comment: Speci men Type: BLOOD SPECIMEN Ordering Facility: [facility] Address: [address] [place], [place] [id number] Result Comment: Results obtained with different test [...] developed and its performance characteristics determined by [facility]. It has not been cleared or approved by the [place] Food and Drug Administration. This test was performed in a CLIA certified laboratory and is intended for clinical purposes. Performed By: [facility] [address] [place] [address] Museum Registrar: Luis Herrera MD, PhD CLIA Number: [id number] Performed By: #### [facility] #### ON LICENSE OF [facility] CLIA [id number] [address] [place] [address] OVon 07-05-2024 CNOV Office Visit (RADTSA ) ARVIND RM ([id number]) 1955 M Date Time Provider Department 07/05/24 9:00 AM LAB/PORT RADT MELISSA NANCY During your visit today, we recorded the following information about you: Temperature Pulse Respiration Blood pressure 98.5 degrees 68/minute 16/minute 137/81 Sherie Reich RN 07/05/2024 9:50 AM Signed Patient reminded of lab appointment 07/08/24. Sherie Reich RN Referring Provider: Azam GUILLERMO [[id number]] Allergies As of Date: 07/05/2024 Noted Allergy [...] Encounter Status:Closed by SHERIE REICH on 07/05/24 [facility] CNOVon 07-04-2024 CNOV Office Visit (RADTSA ) ARVIND RM ([id number]) 1955 M Date Time Provider Department 07/04/24 9:15 AM LAB/PORT RADT MELISSA NANCY During your visit today, we recorded the following information about you: Temperature Pulse Respiration Blood pressure 97.6 degrees 83/minute 16/minute 147/88 Weight 83.5 kg Referring Provider: Azam GUILLERMO [[id number]] Allergies As of Date: 07/04/2024 Noted Allergy Reaction CLINDAMYCIN 04/01/2023 2 - Rash Date Reviewed: 07/04/2024 Reviewed by: Sherie Reich, RN - Fully [...] Status:Closed by SHERIE REICH on 07/04/24 Normal [facility] T4 SerPl-mCncon 07-04-2024 T4 [Mass/Vol] 7.4 ug/dL Normal 5.5-10.2 [facility] Comment on above: Order Comment: Filemon mix Type: BLOOD SPECIMEN Ordering Facility: [facility] Address: [address] [place] [address] Performed By: #### [facility] #### [employer] CLIA [id number] [address] [place] [address] THYROGLOBULIN BY LC-MS/MS, S JOHN OR PLASMA, FOR THYROGLOBULIN ANTIBODY INTERFERENCEon 07-04-2024 THYROGLOBULIN, LC-MS/MS 2.5 ng/mL Normal 1.3-31.8 [facility] Comment on above: Order Comment: Filemon mix Type: BLOOD SPECIMEN Ordering Facility: [facility] Address: [address] [place] [address] Result Comment: Results obtained with different test [...] developed and its performance characteristics determined by [facility]. It has not been cleared or approved by the US Food and Drug Administration. This test was performed in a CLIA certified laboratory and is intended for clinical purposes. Performed By: [facility] [address] [place] [address] Museum Registrar: Luis Herrera MD, PhD CLIA Number: [id number] Performed By: #### [facility] #### [employer] CLIA [id number] [address] [place] [address] TSH SerPl-aCncon 07-04-2024 TSH Qn 8.350 m[IU]/L High 0.270-4.200 [facility] Comment on above: Order Comment: Speci men Type: BLOOD SPECIMEN Ordering Facility: [facility] Address: [address] [place] [address] Performed By: #### [facility] #### [facility] [id number] [address] [place] [address] Javon 06-28-2024 CNPN Telephone (RADTSA) ARVIND RM ([id number]) 1955 M Date Time Provider Department 06/28/24 Azam GUILLERMO CHAURadha During your visit today, we recorded the [...] Status:Closed by LINDA MENDEZ on 06/28/24 Normal [facility] NM thyroid ca whole bodyon 1 08-10-2022 NM thyroid ca whole body [facility] Main [address] [address] Nuclear Medicine Report Signed Patient: Arvind Rm MR#: [id number] : 1955 Acct:[id number] Age/Sex: 68 / M ADM Date: 06/03/23 Loc: [place] Room: Type: [facility] Attending Dr: Temo Guillermo MD Copies to: MD Pallavi Patel MD Ordering Provider: Azam Guillermo MD Date of Service: 06/10/23 [place] thyroid ca whole body: *Dose Ordered* THYROID [...] no obvious evidence of distant metastatic disease. [place] thyroid ca whole body IMPRESSION: INTENSE UPTAKE AT THE NECK IN THE AREA OF THE THYROID BED. NO SUSPECTED METASTATIC DISEASE. Impression dictated by: Pallavi Cline M.D.06/10/2023 4:04 PM Dictation Location: [place] [address] Transcribed By: [facility] 06/10/23 1604 Dictated By: Pallavi Cline MD 06/10/23 1601 Signed By: 06/10/23 1604 [facility] Thyroglobulin and Thyrogobul in Ab panelon 06-04-2023 Thyroglobulin Ab Qn <4.0 IU/mL [facility] Thyroglobulin, Serum 2.8 ng/mL 1.6 - 5 0.0 ng/mL [facility] tx radpharm oralon 2022 [place] tx radpharm oral [address] [address] Nuclear Medicine Report Signed Patient: Arvind Rm MR#: [id number] : 1955 Acct:[id number] Age/Sex: 68 / M ADM Date: 06/03/23 Loc: [place] Room: Type: [facility] Attending Dr: Temo Guillermo MD Copies to: Azam Guillermo MD Ordering Provider: Azam Guillermo MD Date of Service: 06/03/23 [place] radpharm oral: THYROID CANCER DIAGNOSIS: Thyroid [...] MD 06/03/23 1226 Signed By: 08/07/23 1102 [facility] 04-28-2023 L - -------- Specimen: [id number] Received: 04/28/23 Status: CINDY Esther Num: [id number] Spec Type: Surgical Subm Dr: Modesto Guzmán MD Tissues: A Colon Biopsy (CECAL POLYPS) B Colon Biopsy (ASCENDING POLYP) C Colon Biopsy (RECTAL POLYP) Procedures: HE/6, Gross/Micro L4/3 -------- Age/ Patient Sex Location Account Attending Physician -------- Arvind Rm 68/[facility] [id number] Modesto Guzmán MD -------- SPEC NUM: [id number] RECD: 04/28/23 STATUS: CINDY LOVELACESamina NUM: [id number] NANDO: 04/28/23 DR: Modesto Guzmán MD ENTERED: 04/28/23 [facility] DR: CHERIE TYPE: Surgical DEPT: [...] patient's name, date of and ascending colon -------- Specimen: [id number] Received: 04/28/23 Status: CINDY Aponte Num: [id number] Spec Type: Surgical Subm Dr: Modesto Guzmán MD Tissues: A Colon Biopsy (CECAL POLYPS) B Colon Biopsy (ASCENDING POLYP) C Colon Biopsy (RECTAL POLYP) Procedures: HE/Hillary, Gross/Micro L4/3 -------- Patient: Arvind Rm [id number] (Continued) -------- Specimen: [id number] Received: 04/28/23 (Continued) Gross Description (Continued) Signed (signature on file) Favian Nash MD 04/29/23942 -------- Specimen: [id number] Received: 04/28/23 Status: CINDY Aponte Num: [id number] Spec Type: Surgical Subm Dr: Modesto Guzmán MD Tissues: A Colon Biopsy (CECAL POLYPS) B Colon Biopsy (ASCENDING POLYP) C Colon Biopsy (RECTAL POLYP) Procedures: HE/6, Gross/Micro L4/3 -------- Patient: Arvind Rm [id number] (Continued) -------- Specimen: [id number] Received: 04/28/23 (Continued) Gross Description (Continued) are [...] microscopic examination confirms the diagnosis. CPT Codes 90114t3 -------- -------- Specimen: [id number] Received: 04/28/23 Status: CINDY Aponte Num: [id number] Spec Type: Surgical Subm Dr: Modesto Guzmán MD Tissues: A Colon Biopsy (CECAL POLYPS) B Colon Biopsy (ASCENDING POLYP) C Colon Biopsy (RECTAL POLYP) Procedures: HE/6, Gross/Micro L4/3 -------- Patient: Arvind Rm [id number] (Continued) -------- Signed (signature on file) Favian Nash MD 04/29/23942 [facility] THYROGLOBULIN BY MASS SPECTR OMETRYon 04-07-2023 Thyroglobulin [Mass/Vol] 1.7 ng/mL 1.3 - 31.8 ng/mL [facility] Consultation Noteon 01-30-20 Consultation Note [id number] .00CD:127 Normal [facility] US FNA W US GD ADD LESon US FNA W US GD ADD LES Begin Addendum #1 COLLECTED DATE/TIME: 11/11/2022 09:46 EDT Final Diagnosis Report for [facility], [place], [place] (A/B) RIGHT THYROID INFERIOR NODULE: FINE [...] (FNA). 2. Pathology results are pending. Normal [facility] Pathology Noteon 11-10-2022 Pathology Note [id number] .00CD:127 Normal [facility] Outside Colonoscopyon 2022 Outside Colonoscopy [id number] .00CD:127 Normal [facility] US THYROIDon 10-30-2022 US THYROID [...] cm left nodules is recommended TI-RADS: The [employer] TI-RADS committee's white paper recommendations for thyroid lesions classified as TR4 (moderately suspicious) are listed below: > 1.0 cm. Follow-up ultrasound in 1, 2, 3, and 5 years. > 1.5 cm. FNA. J. Am Nando Radiol 2017;14:587-595. TI-RADS: The [employer] TI-RADS committee's white paper recommendations for thyroid lesions classified as TR5 (highly suspicious) are listed below: > 0.5 cm. Annual ultrasound follow-up for up to 5 years. > 1.0 cm. FNA. J. Am Nando Radiol 2017;14:587-595. Electronically authenticated by: DIANA HERNANDEZ Date: 2022-10-30 14:53 Normal [facility] Consent for Procedure/Surger yon 10-23-2022 Consent for Procedure/Surgery [id number] .00CD:127 Normal [facility] Facesheeton 10-23-2022 Facesheet [id number] .00CD:127 Normal [facility] Pre-Certification Formon Pre-Certification Form [id number] 1.00CD:127 Normal [facility] Ambulatory Visit Summaryon 0 10-22-2022 [...] Family history of colon cancer Hyperlipidemia Normal [facility] Physician Referralon 023 Physician Referral [id number] .00CD:127 Normal [facility] PSA, FREE AND TOTAL RATIOon 08-23-2022 % Free PSA 21.0 % Normal [facility] Comment on above: Result Comment: The table below lists the probability of prostate cancer for men with non-suspicious TATO results and total PSA between 4 and 10 ng/mL, by patient age (Shaheed et al, ADRIANO 1998, 279:1542). % Free PSA 50-64 yr 65-75 yr 0.00-10.00% 56% 55% 10.01-15.00% 24% 35% 15.01-20.00% 17% 23% 20.01-25.00% 10% 20% >25.00% 5% 9% Please note: Shaheed et al did not make specific recommendations regarding the use of percent free PSA for any other population of men. Performed By: #### P SAFREE #### [facility] [address] [place] [address] Dr. Remigio Han Prostate specific Ag [Mass/Vol] 3.1 ng/mL Normal 0.0-4.0 [facility] Comment on above: Result Comment: Roch pacheco ECLIA methodology. . According to the [employer], Serum PSA should decrease and [...] disease. Performed By: #### P SAFREE #### [facility] [address] [place] [address] [address] Remigio Han PSA, Free 0.65 ng/mL Normal N/A [facility] Comment on above: Result Comment: Cydney bergman ECLIA methodology. Performed By: #### P SAFREE #### [facility] [address] [place] [address] [address] Remigio Han PSA, FREE AND TOTAL RATIOon 02-21-2022 % Free PSA 24.9 % Normal [facility] Comment on above: Result Comment: The table below lists the probability of prostate cancer for men with non-suspicious TATO results and total PSA between 4 and 10 ng/mL, by patient age (Shaheed et al, ADRIANO 1998, 279:1542). % Free PSA 50-64 yr 65-75 yr 0.00-10.00% 56% 55% 10.01-15.00% 24% 35% 15.01-20.00% 17% 23% 20.01-25.00% 10% 20% >25.00% 5% 9% Please note: Shaheed et al did not make specific recommendations regarding the use of percent free PSA for any other population of men. Performed By: #### P SAFREE #### [facility] [address] [place], [place] [address] Dr. Remigio Han Prostate specific Ag [Mass/Vol] 4.5 ng/mL Critically high 0.0-4.0 [facility] Comment on above: Result Comment: Roch e ECLIA methodology. . According to the [employer], Serum PSA should decrease and [...] disease. Performed By: #### P SAFREE #### [facility] [address] [place] [address] Dr. Remigio Han PSA, Free 1.12 ng/mL Normal N/A [facility] Comment on above: Result Comment: Cydney VARELA methodology. Performed By: #### P SAFREE #### [facility] [address] [place] [address] Dr. Remigio Han INSULINon 02-20-2022 Insulin 14.7 uIU/mL Normal 2.6-24.9 [facility] Comment on above: Performed By: #### I NSULIN #### [facility] [address] [place] [address] Dr. Remigio Han CBC AUTO DIFFon 02-19-2022 BASO # 0.0 103/ul Normal 0.0-0.1 [facility] Comment on above: Performed By: #### C BC #### [facility] [address] [place] [address] Dr. Remigio Han Basophils/100 WBC (Bld) 0.5 % Normal 0.2-2.0 [facility] Comment on above: Performed By: #### C BC #### [facility] [address] [place] [address] Dr. Remigio Han EO # 0.1 103/ul Normal 0.0-0.7 [facility] Comment on above: Performed By: #### C BC #### [facility] [address] [place] [address] Dr. Remigio Han Eosinophils/100 WBC (Bld) 1.5 % Normal 0.9-7.0 [facility] Comment on above: Performed By: #### C BC #### [facility] [address] [place] [address] Dr. Remigio Han Erythrocyte distribution width (RBC) [Ratio] 13.0 % Normal 11.0-15.0 [facility] Comment on above: Performed By: #### C BC #### [facility] [address] [place] [address] Dr. Remigio Han Hematocrit (Bld) [Volume fraction] 48.4 % Normal 42.0-54.0 [facility] Comment on above: Performed By: #### C BC #### [facility] [address] [place] [address] Dr. Remigio Han Hemoglobin (Bld) [Mass/Vol] 16.6 g/dL Normal 14.0-18.0 [facility] Comment on above: Performed By: #### C BC #### [facility] [address] [place] [address] Dr. Remigio Han IG # 0.02 10e3/ul Normal 0.00-0.03 [facility] Comment on above: Performed By: #### C BC #### [facility] [address] [place] [address] Dr. Remigio Han IG % 0.4 % Normal 0.0-0.5 [facility] Comment on above: Performed By: #### C BC #### [facility] [address] [place] [address] Dr. Remigio Han LYMPH # 1.6 103/ul Normal 1.2-3.8 [facility] Comment on above: Performed By: #### C BC #### [facility] [address] [place] [address] Dr. Remigio Han Lymphocytes/100 WBC (Bld) 30.0 % Normal 20.5-60.0 [facility] Comment on above: Performed By: #### C BC #### [facility] [address] [place] [address] Dr. Remigio Han MANUAL DIFF REQ NO Normal [facility] Comment on above: Performed By: #### C BC #### [facility] [address] [place] [address] Dr. Remigio Han MCH (RBC) [Entitic mass] 30.2 pg Normal 25.9-34.0 [facility] Comment on above: Performed By: #### C BC #### [facility] [address] [place] [address] Dr. Remigio Han MCHC (RBC) [Mass/Vol] 34.3 g/dL Normal 29.9-35.2 [facility] Comment on above: Performed By: #### C BC #### [facility] [address] [place] [address] [address] Remigio Han MCV (RBC) [Entitic vol] 88.2 fL Normal 80.0-94.0 [facility] Comment on above: Performed By: #### C BC #### [facility] [address] [place] [address] Dr. Remigio Han MONO # 0.4 103/ul Normal 0.3-0.8 [facility] Comment on above: Performed By: #### C BC #### [facility] [address] [place] [address] Dr. Remigio Han Monocytes/100 WBC (Bld) 8.1 % Normal 1.7-12.0 [facility] Comment on above: Performed By: #### C BC #### [facility] [address] [place] [address] Dr. Remigio Han NEUT # 3.3 103/ul Normal 1.4-6.5 [facility] Comment on above: Performed By: #### C BC #### [facility] [address] [place] [address] Dr. Remigio Han Neutrophils/100 WBC (Bld) 59.5 % Normal 43.0-75.0 [facility] Comment on above: Performed By: #### C BC #### [facility] [address] [place] [address] Dr. Remigio Han Platelet mean volume (Bld) [Entitic vol] 9.8 fL Normal 9.5-13.5 [facility] Comment on above: Performed By: #### C BC #### [facility] [address] [place] [address] Dr. Remigio Han PLT 217 103/ul Normal 150-450 [facility] Comment on above: Performed By: #### C BC #### [facility] [address] [place] [address] Dr. Remigio Han RBC 5.49 106/ul Normal 4.70-6.10 [facility] Comment on above: Performed By: #### C BC #### [facility] [address] [place] [address] [address] Remigio Han WBC 5.5 103/ul Normal 4.0-11.0 [facility] Comment on above: Performed By: #### C BC #### [facility] [address] [place] [address] [address] Remigio Han GLYCOHEMOGLOBIN A1Con 2021 ADA RECOMMENDATION SEE BELOW Normal [facility] Comment on above: Result Comment: ADA RECOMMENDED LIMIT 4.0 - 6.0 ADA THERAPEUTIC TARGET < 7.0 ACTION SUGGESTED > 7.0 Performed By: #### A 1C #### [facility] [address] [place] [address] Dr. Remigio Han Glucose [Mass/Vol] 103 mg/dL Normal [facility] Comment on above: Performed By: #### A 1C #### [facility] [address] [place] [address] [address] Remigio Han HbA1c (Bld) [Mass fraction] 5.2 % Normal 4.5-6.2 [facility] Comment on above: Performed By: #### A 1C #### [facility] [address] [place] [address] Dr. Remigio Han LIPID PROFILEon 02-19-2022 CHOL-HDL RATIO NORM SEE BELOW Normal [facility] Comment on above: Result Comment: 3.3 - 4.4 LOW RISK 4.4 - 7.1 AVERAGE RISK 7.1 - 11.0 MODERATE RISK >11.0 HIGH RISK Performed By: #### L IPID, CMP ####[facility] [address] [place] [address]Dr. Remigio Han Cholesterol [Mass/Vol] 259 mg/dL Critically high <=200 [facility] Comment on above: Performed By: #### L IPID, CMP ####[facility] [address] [place] [address]Dr. Remigio Han Cholesterol in HDL [Mass/Vol] 62 mg/dL Critically high 40-60 [facility] Comment on above: Performed By: #### L IPID, CMP ####[facility] [address] [place] [address]Dr. Remigio Han Cholesterol in LDL [Mass/Vol] 171.8 mg/dL Normal [facility] Comment on above: Performed By: #### L IPID, CMP ####[facility] [address] [place] [address]Dr. Remigio Han Cholesterol.total/Ch olesterol in HDL [Mass ratio] 4.2 {ratio} Normal [facility] Comment on above: Performed By: #### L IPID, CMP ####[facility] [address] [place] [address]Dr. Remigio Han HDL NORMAL > or = 60 mg/dl - LO W CARDIOVASCULAR RISK <40 mg/dl - HIGH CARDIOVASCULAR RISK Normal [facility] Comment on above: Performed By: #### L IPID, CMP ####[facility] [address] [place] [address]Dr. Remigio Han LDL CALC NORMAL SEE BELOW Normal [facility] Comment on above: Result Comment: <100 mg/dl OPTIMAL 100 - 129 mg/dl NEAR OR ABOVE OPTIMAL 130 - 159 mg/dl BORDERLINE HIGH 160 - 189 mg/dl HIGH >190 mg/dl VERY HIGH Performed By: #### L IPID, CMP ####[facility] [address] [place] [id number]. Remigio Han Triglyceride [Mass/Vol] 126 mg/dL Normal <=150 [facility] Comment on above: Performed By: #### L IPID, CMP ####[facility] [address] [place] [id number]. Remigio Han VLDL CALC 25.2 mg/dL Normal [facility] Comment on above: Performed By: #### L IPID, CMP ####[facility] [address] [place] [id number][address] Remigio Han PROF 14(COMP METB)on 022 Albumin [Mass/Vol] 3.9 g/dL Normal 3.4-5.0 [facility] Comment on above: Performed By: #### L IPID, CMP #### [facility] [address] [address] [address] Remigio Han Albumin/Globulin [Mass ratio] 1.1 {ratio} Normal [facility] Comment on above: Performed By: #### L IPID, CMP #### [facility] [address] [place] [address] [address] Remigio Han ALP [Catalytic activity/Vol] 65 U/L Normal 46-116 [facility] Comment on above: Performed By: #### L IPID, CMP #### [facility] [address] [place] [address] [address] Remigio Han ALT [Catalytic activity/Vol] 25 U/L Normal 16-63 [facility] Comment on above: Performed By: #### L IPID, CMP #### [facility] [address] [place] [address] [address] Remigio Han Anion gap [Moles/Vol] 13.1 mmol/L Normal [facility] Comment on above: Performed By: #### L IPID, CMP #### [facility] [address] [address] [address] Remigio Han AST [Catalytic activity/Vol] 15 U/L Normal 15-37 [facility] Comment on above: Performed By: #### L IPID, CMP #### [facility] [address] [address] [address] Remigio Han Bilirubin [Mass/Vol] 0.5 mg/dL Normal 0.2-1.0 [facility] Comment on above: Performed By: #### L IPID, CMP #### [facility] [address] [address] [address] Remigio Han Calcium [Mass/Vol] 9.5 mg/dL Normal 8.5-10.1 [facility] Comment on above: Performed By: #### L IPID, CMP #### [facility] [address] [address] [address] Remigio Han Chloride [Moles/Vol] 104 mmol/L Normal 98-107 [facility] Comment on above: Performed By: #### L IPID, CMP #### [facility] [address] [address] [address] Remigio Han CO2 [Moles/Vol] 28.3 mmol/L Normal 21.0-32.0 [facility] Comment on above: Performed By: #### L IPID, CMP #### [facility] [address] [address] [address] Remigio Han Creatinine [Mass/Vol] 1.05 mg/dL Normal 0.70-1.30 [facility] Comment on above: Performed By: #### L IPID, CMP #### [facility] [address] [place] [address] Dr. Remigio Han EGFR-AF HUNGARIAN >60 Normal >=60 [facility] Comment on above: Performed By: #### L IPID, CMP #### [facility] [address] [place] [address] Dr. Remigio Han EGFR-NON AF HUNGARIAN >60 Normal >=60 [facility] Comment on above: Performed By: #### L IPID, CMP #### [facility] [address] [address] [address] Remigio Han Globulin (S) [Mass/Vol] 3.4 g/dL Normal [facility] Comment on above: Performed By: #### L IPID, CMP #### [facility] [address] [address] [address] Remigio Han Glucose [Mass/Vol] 93 mg/dL Normal 74-106 [facility] Comment on above: Performed By: #### L IPID, CMP #### [facility] [address] [address] [address] Remigio Han Potassium [Moles/Vol] 4.4 mmol/L Normal 3.5-5.1 [facility] Comment on above: Performed By: #### L IPID, CMP #### [facility] [address] [address] [address] Remigio Han Protein [Mass/Vol] 7.3 g/dL Normal 6.4-8.2 [facility] Comment on above: Performed By: #### L IPID, CMP #### [facility] [address] [address] [address] Remigio Han Sodium [Moles/Vol] 141 mmol/L Normal 136-145 [facility] Comment on above: Performed By: #### L IPID, CMP #### [facility] [address] [address] [address] Remigio Han Urea nitrogen [Mass/Vol] 25.0 mg/dL Critically high 7.0-18.0 [facility] Comment on above: Performed By: #### L IPID, CMP #### [facility] [address] [address] [address] Remigio Han Urea nitrogen/Creatinine [Mass ratio] 23.8 mg/mg Normal [facility] Comment on above: Performed By: #### L IPID, CMP #### [facility] [address] [address] [address] Remigio Han Vital Signs Date Time Vital Sign Value Performing Clinician Facility 10-13-2024 09:01-0400 Body mass index (BMI) [Ratio] 31.18 kg/m2 HARMONY Guillermo MD Work Phone: [facility] 10-13-2024 09:01-0400 Body temperature 98.1 [degF] HARMONY Guillermo MD Work Phone: [facility] 10-13-2024 09:01-0400 Body weight 86.3 kg HARMONY Guillermo MD Work Phone: [facility] 10-13-2024 09:01-0400 Diastolic blood pressure 81 mm[Hg] HARMONY Guillermo MD Work Phone: [facility] 10-13-2024 09:01-0400 Heart rate 78 /min HARMONY Guillermo MD Work Phone: [facility] 10-13-2024 09:01-0400 Respiratory rate 18 /min HARMONY Guillermo MD Work Phone: [facility] 10-13-2024 09:01-0400 SaO2% (BldA) [Mass fraction] 97 % HARMONY Guillermo MD Work Phone: [facility] 10-13-2024 09:01-0400 Systolic blood pressure 150 mm[Hg] HARMONY Guillermo MD Work Phone: [facility] 07-05-2024 09:17-0500 Body temperature 98.49 [degF] [facility] [place] Work Phone: [facility] 07-05-2024 09:17-0500 Diastolic blood pressure 81 mm[Hg] [facility] [place] Work Phone: [facility] 07-05-2024 09:17-0500 Heart rate 68 /min [facility] [place] Work Phone: [facility] 07-05-2024 09:17-0500 Respiratory rate 16 /min [facility] [place] Work Phone: [facility] 07-05-2024 09:17-0500 SaO2% (BldA) [Mass fraction] 99 % [facility] [place] Work Phone: [facility] 07-05-2024 09:17-0500 Systolic blood pressure 137 mm[Hg] [facility] [place] Work Phone: [facility] 07-04-2024 09:06-0500 Body mass index (BMI) [Ratio] 30.17 kg/m2 [facility] [place] Work Phone: [facility] 07-04-2024 09:06-0500 Body temperature 97.59 [degF] [facility] [place] Work Phone: [facility] 07-04-2024 09:06-0500 Body weight 83.5 kg [facility] [place] Work Phone: [facility] 07-04-2024 09:06-0500 Diastolic blood pressure 88 mm[Hg] [facility] [place] Work Phone: [facility] 07-04-2024 09:06-0500 Heart rate 83 /min [facility] [place] Work Phone: [facility] 07-04-2024 09:06-0500 Respiratory rate 16 /min [facility] [place] Work Phone: [facility] 07-04-2024 09:06-0500 SaO2% (BldA) [Mass fraction] 97 % [facility] [place] Work Phone: [facility] 07-04-2024 09:06-0500 Systolic blood pressure 147 mm[Hg] [facility] [place] Work Phone: [facility] 01-19-2024 14:45-0400 Body mass index (BMI) [Ratio] 30.06 kg/m2 HARMONY Guillermo MD Work Phone: [facility] 01-19-2024 14:45-0400 Body weight 83.2 kg HARMONY Guillermo MD [facility] Phone: [facility] [facility] 01-19-2024 14:45-0400 Diastolic blood pressure 75 mm[Hg] HARMONY Guillermo MD Work Phone: [facility] 01-19-2024 14:45-0400 Heart rate 57 /min HARMONY Guillermo MD Work Phone: [facility] 01-19-2024 14:45-0400 Respiratory rate 16 /min HARMONY Guillermo MD Work Phone: [facility] 01-19-2024 14:45-0400 SaO2% (BldA) [Mass fraction] 99 % HARMONY Guillermo MD Work Phone: [facility] 01-19-2024 14:45-0400 Systolic blood pressure 129 mm[Hg] HARMONY Guillermo MD Work Phone: [facility] 08-27-2023 09:37-0500 Body temperature 97.5 [degF] HARMONY Guillermo MD Work Phone: [facility] 08-27-2023 09:37-0500 Body weight 86.4 kg HARMONY Guillermo MD Work Phone: [facility] 08-27-2023 09:37-0500 Diastolic blood pressure 80 mm[Hg] HARMONY Guillermo MD Work Phone: [facility] 08-27-2023 09:37-0500 Heart rate 70 /min HARMONY Guillermo MD Work Phone: [facility] 08-27-2023 09:37-0500 Respiratory rate 16 /min HARMONY Guillermo MD Work Phone: [facility] 08-27-2023 09:37-0500 SaO2% (BldA) [Mass fraction] 98 % HARMONY Guillermo MD Work Phone: [facility] 08-27-2023 09:37-0500 Systolic blood pressure 139 mm[Hg] HARMONY Guillermo MD Work Phone: [facility] 06-17-2023 10:19-0500 Body temperature 96.69 [degF] HARMONY Guillermo MD Work Phone: [facility] 06-17-2023 10:19-0500 Body weight 82.1 kg HARMONY Guillermo MD Work Phone: [facility] 06-17-2023 10:19-0500 Diastolic blood pressure 86 mm[Hg] HARMONY Guillermo MD Work Phone: [facility] 06-17-2023 10:19-0500 Heart rate 70 /min HARMONY Guillermo MD Work Phone: [facility] 06-17-2023 10:19-0500 Respiratory rate 18 /min HARMONY Guillermo MD Work Phone: [facility] 06-17-2023 10:19-0500 SaO2% (BldA) [Mass fraction] 98 % HARMONY Guillermo MD Work Phone: [facility] 06-17-2023 10:19-0500 Systolic blood pressure 143 mm[Hg] HARMONY Guillermo MD Work Phone: [facility] 06-02-2023 08:43-0500 Body temperature 97.39 [degF] [facility] [place] Work Phone: [facility] 06-02-2023 08:43-0500 Diastolic blood pressure 84 mm[Hg] [facility] [place] Work Phone: [facility] 06-02-2023 08:43-0500 Heart rate 78 /min [facility] [place] Work Phone: [facility] 06-02-2023 08:43-0500 Respiratory rate 16 /min [facility] [place] Work Phone: [facility] 06-02-2023 08:43-0500 SaO2% (BldA) [Mass fraction] 99 % [facility] [place] Work Phone: [facility] 06-02-2023 08:43-0500 Systolic blood pressure 132 mm[Hg] [facility] [place] Work Phone: [facility] 06-01-2023 08:41-0500 Body temperature 97 [degF] [facility] [place] Work Phone: [facility] 06-01-2023 08:41-0500 Body weight 80.29 kg [facility] [place] Work Phone: [facility] 06-01-2023 08:41-0500 Diastolic blood pressure 86 mm[Hg] [facility] [place] Work Phone: [facility] 06-01-2023 08:41-0500 Heart rate 68 /min [facility] [place] Work Phone: [facility] 06-01-2023 08:41-0500 Respiratory rate 16 /min [facility] [place] Work Phone: [facility] 06-01-2023 08:41-0500 SaO2% (BldA) [Mass fraction] 99 % [facility] [place] Work Phone: [facility] 06-01-2023 08:41-0500 Systolic blood pressure 133 mm[Hg] [facility] [place] Work Phone: [facility] 04-28-2023 09:47-0400 Diastolic blood pressure 74 mm[Hg] MD Gael Thomas Work Phone: [facility] 04-28-2023 09:47-0400 Heart rate 78 /min MD Gael Thomas Work Phone: [facility] 04-28-2023 09:47-0400 Respiratory rate 20 /min MD Gael Thomas Work Phone: [facility] 04-28-2023 09:47-0400 SaO2% (BldA) [Mass fraction] 97 % MD Gael Thomas Work Phone: [facility] 04-28-2023 09:47-0400 Systolic blood pressure 126 mm[Hg] MD Gael Thomas Work Phone: [facility] 04-28-2023 09:32-0400 Inhaled oxygen flow rate 2 L/min MD Gael Thomas Work Phone: [facility] 04-28-2023 07:07-0400 Body height 166.37 cm MD Gael Thomas Work Phone: [facility] 04-28-2023 07:07-0400 Body weight 80.73 kg MD Gael Thomas Work Phone: [facility] 04-01-2023 12:33-0400 Body height 166.4 cm HARMONY Guillermo MD Work Phone: [facility] 04-01-2023 12:33-0400 Body temperature 98.01 [degF] HARMONY Guillermo MD Work Phone: [facility] 04-01-2023 12:33-0400 Body weight 78.93 kg HARMONY Guillermo MD Work Phone: [facility] 04-01-2023 12:33-0400 Diastolic blood pressure 78 mm[Hg] HARMONY Guillermo MD Work Phone: [facility] 04-01-2023 12:33-0400 Heart rate 86 /min HARMONY Guillermo MD Work Phone: [facility] 04-01-2023 12:33-0400 Respiratory rate 16 /min HARMONY Guillermo MD Work Phone: [facility] 04-01-2023 12:33-0400 SaO2% (BldA) [Mass fraction] 97 % HARMONY Guillermo MD Work Phone: [facility] 04-01-2023 12:33-0400 Systolic blood pressure 115 mm[Hg] HARMONY Guillermo MD Work Phone: [facility] 10-22-2022 15:26-0400 Blood Pressure Location Violeta DAVIDA [facility] 10-22-2022 15:26-0400 Diastolic blood pressure 80 mm[Hg] Violeta NILL [facility] 10-22-2022 15:26-0400 Heart rate 74 /min Violeta NILL [facility] 10-22-2022 15:26-0400 Respiratory rate 16 /min Violeta NILL [facility] 10-22-2022 15:26-0400 Systolic blood pressure 122 mm[Hg] Violeta NILL [facility] Encounters Encounter Date Encounter Type Care Provider Facility Start: 04-12-2025 End: 04-12-2025 ambulatory [facility] Facility:[facility] Start: 10-24-2024 End: 10-24-2024 Refill Joey Rand MD Work Phone: [facility] Comment on above: LPRD (laryngopharyng eal reflux disease) Start: 10-13-2024 End: 10-13-2024 ambulatory [facility] Facility:[facility] Start: 10-13-2024 End: 10-13-2024 Office outpatient visit 15 minutes Azam Guillermo MD Work Phone: [facility] Comment on above: Thyroid cancer (HCC) (Primary Dx) Start: 10-06-2024 End: 10-06-2024 ambulatory GAEL THOMAS Facility:[facility] Start: 09-05-2024 ambulatory BRIAN AGGARWAL [facility] Start: 09-05-2024 End: 09-05-2024 ambulatory BRIANJAVON AGGARWAL [facility] Start: 08-23-2024 End: 08-23-2024 Clinisync Result Encounter Joey Rand MD Work Phone: [facility] Unsolicited Start: 08-23-2024 End: 08-23-2024 Clinisync Result Encounter Joey Rand MD Work Phone: [facility] Unsolicited Start: 08-23-2024 End: 09-09-2024 Telephone encounter Joey Rand MD Work Phone: [facility] Start: 08-17-2024 End: 08-18-2024 Telephone encounter Azam Guillermo MD Work Phone: [facility] Comment on above: Appointment; Patient Update Start: 07-22-2024 End: 07-22-2024 Refill Azam Guillermo MD Work Phone: [facility] Comment on above: Refill Request Start: 07-19-2024 End: 07-19-2024 Telephone encounter Joey Rand MD Work Phone: [facility] Start: 07-15-2024 End: 07-18-2024 Telephone encounter Azam Guillermo MD Work Phone: [facility] Comment on above: Orders Start: 07-08-2024 End: 07-08-2024 Telephone encounter Azam Guillermo MD Work Phone: [facility] Comment on above: Orders Start: 07-08-2024 End: 07-08-2024 ambulatory GAEL THOMAS Facility:[facility] Start: 07-05-2024 End: 07-05-2024 ambulatory Azam GUILLERMO Facility:[facility] Start: 07-05-2024 End: 07-05-2024 Patient encounter procedure [facility] [place] Work Phone: [facility] Comment on above: Thyroid cancer (HCC) (Primary Dx) Start: 07-04-2024 End: 07-04-2024 Patient encounter procedure [facility] [place] Work Phone: [facility] Comment on above: Thyroid cancer (HCC) (Primary Dx) Start: 07-04-2024 End: 07-04-2024 ambulatory Azam GUILLERMO Facility:[facility] Start: 06-28-2024 End: 06-28-2024 Telephone encounter Azam Guillermo MD Work Phone: [facility] Comment on above: Orders Start: 01-25-2024 Orders Only Azam calderon MD Work Phone: [facility] Start: 01-19-2024 End: 01-19-2024 Patient encounter procedure Azam Guillermo MD Work Phone: [facility] Comment on above: Thyroid cancer (HCC) (Primary Dx) Start: 11-18-2023 End: 11-18-2023 ambulatory JOEY H TIMMIS Not Available Start: 10-05-2023 Refill Azam calderon MD Work Phone: [facility] Comment on above: Refill Request Start: 08-27-2023 Refill Azam calderon MD Work Phone: [facility] Comment on above: Med Change Request Start: 08-27-2023 End: 08-27-2023 Patient encounter procedure Azam Guillermo MD Work Phone: [facility] Comment on above: Thyroid cancer (HCC) (Primary Dx) Start: 08-19-2023 End: 08-19-2023 ambulatory JOEY H TIMMIS Not Available Start: 07-15-2023 End: 07-15-2023 ambulatory JOEY H TIMMIS Not Available Start: 07-01-2023 End: 07-01-2023 ambulatory JOEY H TIMMIS Not Available Start: 06-17-2023 End: 06-17-2023 Patient encounter procedure Azam Guillermo MD Work Phone: [facility] Comment on above: Thyroid cancer (HCC) (Primary Dx) Start: 06-03-2023 End: 06-03-2023 ambulatory Temo Guillermo Facility:[facility] Start: 06-03-2023 End: 06-03-2023 Patient encounter procedure Azam Guillermo MD Work Phone: [facility] Comment on above: Thyroid cancer (HCC) (Primary Dx) Start: 06-03-2023 End: 06-03-2023 ambulatory MD Gael Thomas Work Phone: [facility] [place] [facility] Work Phone: Start: 06-03-2023 End: 06-03-2023 Patient encounter procedure MD Gael Thomas Work Phone: [facility] Work Phone: Start: 06-02-2023 End: 06-02-2023 Patient encounter procedure [facility] [place] Work Phone: [facility] Comment on above: Thyroid cancer (HCC) (Primary Dx) Start: 06-01-2023 End: 06-01-2023 Patient encounter procedure [facility] [place] Work Phone: [facility] Comment on above: Thyroid cancer (HCC) (Primary Dx) Start: 05-08-2023 Refill G Oracio calderon MD Work Phone: [facility] Comment on above: Refill Request Start: 04-28-2023 End: 04-28-2023 ambulatory Imad Asaad Facility:[facility] Start: 04-28-2023 End: 04-28-2023 Admission to same day surgery center MD Gael Thomas Work Phone: [facility] Work Phone: Start: 04-28-2023 End: 04-28-2023 ambulatory MD Gael Thomas Work Phone: [facility] [place] [facility] Work Phone: Start: 04-21-2023 End: 04-21-2023 ambulatory Imad Asamalik Other [facility] [employer] Other Start: 04-21-2023 Telephone encounter Imad Asaad [facility] Start: 04-09-2023 Patient encounter procedure [facility] Provider [facility] Start: 04-02-2023 Orders Only G Oracio calderon MD Work Phone: [facility] Start: 04-01-2023 End: 04-01-2023 Patient encounter procedure [facility] [place] Work Phone: [facility] Comment on above: Thyroid cancer (HCC) (Primary Dx) Start: 11-18-2022 ambulatory Violeta TINOCO Facility : [...] Date Procedure Procedure Detail Performing Clinician Start: 08-23-2024 ALL THYROID STIM HORMONE Joey Rand MD Work Phone: Start: 04-28-2023 End: 04-28-2023 Colonoscopy MD Gael Thomas Work Phone: Start: 04-01-2023 Assay of thyroglobulin Azam Guillermo MD Work Phone: Start: 02-19-[address] TOBIN THOMAS . Comment on above: Performed By: #### [facility] ####[facility] [id number] [place], [place] [address]Gt. Remigio Han Colonoscopy Violeta TINOCO Plan of Treatment Date Care Activity Detail Author Start: 04-28-2033 Screening for malign ant neoplasm of colon [facility] Start: 2030 RSV Vaccine (1 - 1-d ose 75+ series) RSV Vaccine (1 - 1-dose 75+ series) [facility] Start: 02-19-2027 Prostate Cancer Screening Discussion Prostate Cancer Screening Discussion [facility] Start: 02-19-2027 Prostate specific antigen measurement Prostate Cancer Screening Discussion [facility] Start: 03-20-2026 Diabetes Screening Diabetes Screenin g [facility] Start: 04-25-2025 End: 04-25-2025 Patient encounter procedure 04/25/2025 9:15 AM EDT Office Visit Rad[facility] Oncology [address] [place] [address] [place] [address] Azam Guillermo MD [address] [place] [address] [place] [address] 6 MONTH FOLLOW UP [facility] Comment on above: 6 MONTH FOLLOW UP Start: 04-15-2025 End: 07-15-2025 Thyroglobulin and Thyrogobulin Ab panel - Serum or Plasma THYROGLOBULIN, SERUM WITH REFLEX TO IA OR LC-MS/MS Lab Routine Thyroid cancer (HCC) Expected: 04/15/2025 (Approximate), Expires: 07/15/2025 [facility] Comment on above: Expected: 04/15/2025 (Approximate), Expires: 07/15/2025 Start: 04-15-2025 End: 07-15-2025 Thyrotropin [Units/volume] in Serum or Plasma THYROID STIMULATING HORMONE Lab Routine Thyroid cancer (HCC) Expected: 04/15/2025 (Approximate), Expires: 07/15/2025 [facility] Comment on above: Expected: 04/15/2025 (Approximate), Expires: 07/15/2025 Start: 04-15-2025 End: 07-15-2025 Thyroxine (T4) [Mass/volume] in Serum or Plasma T4/THYROXINE Lab Routine Thyroid cancer (HCC) Expected: 04/15/2025 (Approximate), Expires: 07/15/2025 [facility] Work Phone: Comment on above: Expected: 04/15/2025 (Approximate), Expires: 07/15/2025 Start: 04-12-2025 End: 04-12-2025 Patient encounter procedure 04/12/2025 9:00 AM EDT Office Visit [facility] [address] [address] LAB [facility] Comment on above: LAB Start: 10-13-2024 End: 10-13-2024 Patient encounter procedure 10/13/2024 9:15 AM EDT Office Visit Radiation Oncology [address] [address] Azam Guillermo MD [address] [address] follow up after labs [facility] Comment on above: follow up after labs Start: 10-06-2024 End: 01-05-2025 Thyroglobulin and Thyrogobulin Ab panel - Serum or Plasma THYROGLOBULIN, SERUM WITH REFLEX TO IA OR LC-MS/MS Lab Routine Thyroid cancer (HCC) Expected: 10/06/2024, Expires: 01/05/2025 [facility] Comment on above: Expected: 10/06/2024 , Expires: 01/05/2025 Start: 10-06-2024 End: 01-05-2025 Thyrotropin [Units/volume] in Serum or Plasma THYROID STIMULATING HORMONE Lab Routine Thyroid cancer (HCC) Expected: 10/06/2024, Expires: 01/05/2025 [facility] Work Phone: Comment on above: Expected: 10/06/2024 , Expires: 01/05/2025 Start: 10-06-2024 End: 01-05-2025 Thyroxine (T4) [Mass/volume] in Serum or Plasma T4/THYROXINE Lab Routine Thyroid cancer (HCC) Expected: 10/06/2024, Expires: 01/05/2025 [facility] Comment on above: Expected: 10/06/2024 , Expires: 01/05/2025 Start: 10-06-2024 End: 10-06-2024 Patient encounter procedure 10/06/2024 9:00 AM EDT Office Visit [facility] [address] [address] lab [facility] Comment on above: lab Start: 07-27-2024 Advance Directive Discussion Advance Directive Discussion [facility] Start: 07-18-2024 End: 07-18-2024 Patient encounter procedure 07/18/2024 9:00 AM EST Office Visit Rad[facility] Oncology [address] [address] Azam Guillermo MD [address] [address] followup Needds this due to Xmas* [facility] Comment on above: followup Needds th is due to Xmas* Start: 07-15-2024 End: 10-14-2024 Thyroglobulin and Thyrogobulin Ab panel - Serum or Plasma THYROGLOBULIN, SERUM WITH REFLEX TO IA OR LC-MS/MS Lab Routine Thyroid cancer (HCC) Expected: 07/15/2024, Expires: 10/14/2024 [facility] Work Phone: Comment on above: Expected: 07/15/2024 , Expires: 10/14/2024 Start: 07-08-2024 End: 10-07-2024 THYROGLOBULIN BY LC-MS/MS, SERUM OR PLASMA, FOR THYROGLOBULIN ANTIBODY INTERFERENCE [facility] Work Phone: Comment on above: Expected: 07/08/2024 , Expires: 10/07/2024 Start: 07-08-2024 End: 07-08-2024 Patient encounter procedure 07/08/2024 9:00 AM EST Office Visit [facility] [address] [address] lab- Thyroglobulin ONLY [facility] Comment on above: lab- Thyroglobulin O NLY Start: 07-05-2024 End: 07-05-2024 Patient encounter procedure 07/05/2024 9:00 AM EST Office Visit Rad[facility] Oncology [address] [address] Thyrogen [facility] Comment on above: Thyrogen Start: 07-04-2024 End: 10-03-2024 THYROGLOBULIN BY LC-MS/MS, SERUM OR PLASMA, FOR THYROGLOBULIN ANTIBODY INTERFERENCE THYROGLOBULIN BY LC-MS/MS, SERUM OR PLASMA, FOR THYROGLOBULIN ANTIBODY INTERFERENCE Lab Routine Thyroid cancer (HCC) Expected: 07/04/2024, Expires: 10/03/2024 [facility] Comment on above: Expected: 07/04/2024 , Expires: 10/03/2024 Start: 07-04-2024 End: 10-03-2024 Thyrotropin [Units/volume] in Serum or Plasma THYROID STIMULATING HORMONE Lab Routine Thyroid cancer (HCC) Expected: 07/04/2024, Expires: 10/03/2024 [facility] Comment on above: Expected: 07/04/2024 , Expires: 10/03/2024 Start: 07-04-2024 End: 10-03-2024 Thyroxine (T4) [Mass/volume] in Serum or Plasma T4/THYROXINE Lab Routine Thyroid cancer (HCC) Expected: 07/04/2024, Expires: 10/03/2024 [facility] Comment on above: Expected: 07/04/2024 , Expires: 10/03/2024 Start: 07-04-2024 End: 07-04-2024 Patient encounter procedure [facility] Comment on above: Draw T4, Tsh, and Th yroglobulin level Prior to injection Thyrogen Start: 03-27-2024 Covid-19 Vaccine () Covid-19 Vaccine () [facility] Start: 03-27-[address] [facility] Start: 12-26-2023 End: 03-26-2024 THYROGLOBULIN BY LC-MS/MS, SERUM OR PLASMA, FOR THYROGLOBULIN ANTIBODY INTERFERENCE THYROGLOBULIN BY LC-MS/MS, SERUM OR PLASMA, FOR THYROGLOBULIN ANTIBODY INTERFERENCE Lab Routine Thyroid cancer (HCC) Expected: 12/26/2023, Expires: 03/26/2024 [facility] Work Phone: Comment on above: Expected: 12/26/2023 , Expires: 03/26/2024 Start: 12-26-2023 End: 03-26-2024 Thyrotropin [Units/volume] in Serum or Plasma TSH BLD Lab Routine Thyroid cancer (HCC) Expected: 12/26/2023, Expires: 03/26/2024 [facility] Work Phone: Comment on above: Expected: 12/26/2023 , Expires: 03/26/2024 Start: 12-26-2023 End: 03-26-2024 Thyroxine (T4) [Mass/volume] in Serum or Plasma T4/THYROXINE BLOOD Lab Routine Thyroid cancer (HCC) Expected: 12/26/2023, Expires: 03/26/2024 [facility] Work Phone: Comment on above: Expected: 12/26/2023 , Expires: 03/26/2024 Start: 08-27-2023 End: 11-26-2023 Thyrotropin [Units/volume] in Serum or Plasma TSH BLD Lab Routine Thyroid cancer (HCC) Expected: 08/27/2023 (Approximate), Expires: 11/26/2023 [facility] Work Phone: Comment on above: Expected: 08/27/2023 (Approximate), Expires: 11/26/2023 Start: 08-27-2023 End: 11-26-2023 Thyroxine (T4) [Mass/volume] in Serum or Plasma T4/THYROXINE BLOOD Lab Routine Thyroid cancer (HCC) Expected: 08/27/2023 (Approximate), Expires: 11/26/2023 [facility] Work Phone: Comment on above: Expected: 08/27/2023 (Approximate), Expires: 11/26/2023 Start: 07-27-2023 Advance Directive Discussion Advance Directive Discussion [facility] Start: 07-27-2023 Behavioral Health Screening Behavioral Health Screening [facility] Start: 07-27-2023 Depression Assessment Depression Ass essment [facility] Start: 06-10-2023 Radionuclide localization of tumor, whole body NM thyroid ca whole body [facility] Start: 06-03-2023 Oral radionuclide therapy NM tx radpharm oral [facility] Start: 04-28-2023 [facility] Start: 04-01-2023 End: 06-01-2023 THYROGLOBULIN BY MASS SPECTROMETRY THYROGLOBULIN BY MASS SPECTROMETRY Lab Routine Thyroid cancer (HCC) Expected: 04/01/2023, Expires: 06/01/2023 [facility] Work Phone: Comment on above: Expected: 04/01/2023 , Expires: 06/01/2023 Start: 03-27-2023 Covid-19 Vaccine () Covid-19 Vaccine () [facility] Start: 03-27-2023 Influenza vaccination C [facility] Start: 07-27-2022 ADVANCE DIRECTIVE DISCUSSION ADVANCE DIRECTIVE DISCUSSION [facility] Start: 07-27-2022 DEPRESSION ASSESSMENT DEPRESSION ASS ESSMENT [facility] Start: 05-19-2022 COVID-19 VACCINE (5 - Pfizer series) COVID-19 VACCINE (5 - Pfizer series) [facility] Start: 2020 Pneumococcal Vaccine : 65+ (1 - PCV) Pneumococcal Vaccine: 65+ (1 - PCV) [facility] Start: 2020 Pneumococcal Vaccine : 65+ (1 of 1 - PCV) Pneumococcal Vaccine: 65+ (1 of 1 - PCV) [facility] Start: 2020 Pneumococcal Vaccine : 65+ Years (1 of 1 - PCV) Pneumococcal Vaccine: 65+ Years (1 of 1 - PCV) [facility] Start: 2020 PNEUMOCOCCAL: 65+ (1 - PCV) PNEUMOCOCCAL: 65+ (1 - PCV) [facility] Start: 2015 RSV Vaccine (1 - 1-d ose 60+ series) RSV Vaccine (1 - 1-dose 60+ series) [facility] Start: 2010 PROSTATE CANCER SCREENING DISCUSSION PROSTATE CANCER SCREENING DISCUSSION [facility] Start: 2005 Pneumococcal Vaccine : 50+ (1 of 1 - PCV) Pneumococcal Vaccine: 50+ (1 of 1 - PCV) [facility] Start: 2005 SHINGRIX VACCINE (1 of 2) SHINGRIX VACCINE (1 of 2) [facility] Start: 2000 COLOGUARD (FIT-DNA) COLOGUARD (FIT-D NA) [facility] Start: 2000 Colonoscopy COLONOSCOPY [facility] Start: 2000 COLORECTAL CANCER SCREENING COLORECTAL CANCER SCREENING [facility] Start: [address] COLONOGRAPHY [facility] Start: 2000 DIABETES SCREEN DIABETES SCREEN [facility] Start: 2000 Diabetes Screening Diabetes Screenin g [facility] Start: 2000 FECAL OCCULT BLOOD FECAL OCCULT BLOO D [facility] Start: 2000 Screening for malign ant neoplasm of colon [facility] Start: 2000 SIGMOIDOSCOPY SIGMOIDOSCOPY [facility] Start: 1990 Lipid 1996 panel - S john or Plasma Lipid Screening [facility] Start: 1990 Lipid panel Lipid Screening [facility] Start: 1990 LIPID SCREEN LIPID SCREEN [facility] Start: 1974 Urine microalbumin profile [facility] Start: 1973 Anxiety Screening Anxiety Screening [facility] Start: 1973 Depression Screening Depression Scre ing [facility] Start: 1973 HEPATITIS C SCREENING HEPATITIS C [facility] Start: 1973 Hepatitis C screening Hepatitis C [facility] Start: 1955 ABDOMINAL AORTIC ANEURYSM SCREENING ABDOMINAL AORTIC ANEURYSM SCREENING [facility] Start: 1955 Abdominal aortic aneurysm screening Abdominal Aortic Aneurysm Screening [facility] Start: 1955 Screening for malign ant neoplasm of colon [facility] Patient Education Colon polyps Diverticulosis Hemorrhoids (DC) [facility] [place] [facility] Work Phone: End: 04-30-2024 Rp therapy oral administration NM THERAPY THYROID I-131 Radiology Routine Thyroid cancer (HCC) 1 Occurrences starting 04/01/2023 until 04/30/2024 [facility] Work Phone: Comment on above: 1 Occurrences starti ng 04/01/2023 until 04/30/2024 [facility] Immunizations Immunization Date Immunization Notes Care Provider Fa cility 03-24-2022 SARS-CoV-2 mRNA (okpyoidgxoh-yzem-utls ose) vaccine Vio[facility]ta N[facility] 10-16-2021 SARS-CoV-2 mRNA (tadcaqdpmqw-lkps-grms ose) vaccine [facility] N[facility] 04-17-2021 SARS-CoV-2 (COVID-19 ) mRNA BNT-162b2 vax [facility]ta NILL [facility] 03-27-2021 SARS-CoV-2 (COVID-19 ) mRNA BNT-162b2 vax Violeta NILL [facility] NEGATED: Highlighted row has not occurred!10-22-2022 influenza virus vaccine, unspecified formulation Violeta AMEZCUAL [facility] Payers Date Payer Category Payer Self-pay 2020 Medicare [employer] MEDICARE [employer] MEDICARE PPO [id number] 2020-Present [phone] [address] [address] [place] [address] PPO [id number] 2020 Medicare (Managed Care) [id number] 1959 Medicare [id number] 1955 Unknown [id number] 1955 Unknown [id number] 1955 Unknown [id number] 1955 Unknown [id number] .593 1955 Unknown [id number] 2.16.840.1.526580.3.579.2 .593 1955 Unknown [id number] 2.16.840.1.634743.3.579.2 .727 1955 Unknown [id number] 2.16.840.1.472661.3.579.2 .727 1955 Unknown [id number] 2.16.840.1.042459.3.579.2 .727 1955 Unknown [id number] 2.16.840.1.131374.3.579.2 .727 1955 Unknown [id number] 2.16.840.1.466407.3.579.2 .1259 1955 Unknown [id number] 2.16.840.1.691893.3.579.2 .1259 1955 Unknown [id number] 2.16.840.1.154175.3.579.2 .1259 1955 Unknown [id number] 2.16.840.1.308197.3.579.2 .1259 Unknown [id number] 2.16.840.1.971628.3.579.2 .531 Unknown [id number] 2.16.840.1.273102.3.579.2 .531 Social History Date Type Detail Facility Start: 10-22-2022 End: 05-25-2023 Tobacco smoking status Ex-smoker (finding) [facility] Tobacco smoking status Never [facility] Start: 04-01-2023 End: 11-18-2023 Sex Assigned At Male Chucky Rader [facility] Start: 07-27-1974 End: 07-27-1982 History of tobacco use Current smoker [facility] Start: 07-27-1974 End: 07-27-1982 History of tobacco use Cigarette Smoker [facility] Start: 04-01-2023 End: 11-18-2023 Cigarettes smoked current (pack per day) - Reported 0.5 [facility] Start: 04-01-2023 End: 05-25-2023 Tobacco use and exposure Smokeless tobacco non-user [facility] Start: 04-01-2023 End: 07-05-2024 Alcohol intake Ex-drinker (finding) [facility] Start: 1955 Sex Assigned At Not on file C [facility] Start: 1955 Sex Assigned At Male [facility] Start: 11-18-2023 Alcoholic beverage intake Lifetime non-drinker (finding) [facility] Goals Date Patient Goal Desired Activity /State Functional Status Date Assessment Result Facility 10-22-2022 Functional Status N/A [facility] Clinical Notes 10-22-2022 to 10-13-2024 Azam Guillermo MD - 10/13/2024 9:15 AM EDTTelephone Encounter - [facility] - 09/09/2024 3:07 PM ESTTelephone Encounter - [facility] - 09/09/2024 3:07 PM EST Note Date & Type Note Facility 10-13-2024 History of Presen t illness Narrative Radiation Oncology -follow-up note PATIENT NAME: Arvind mR PATIENT : 1955 Primary Site: Thyroid Date of Diagnosis: March 10, 2023 Clinical Stage: T2 N0 M0 Pathologic Stage: T2 N0 M0 DIAGNOSIS: Thyroid cancer, 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 HPI: Doing well denies problems. RADIOLOGY: Post I-131 whole-body scan 06/10/2023: Uptake within an area of thyroid bed only. No suspected metastatic disease. LABORATORY: Latest Reference Range & Units 07/04/24 08:54 Pre- thyrogen 07/08/24 10:01 Post- thyrogen 10/06/24 09:01 (Spot) Thyroglobulin, LC-MS/MS 1.3 - 31.8 ng/mL 2.5 4.4 T4 5.5 - 10.2 ug/dL 7.4 8.7 TSH 0.270 - 4.200 mIU/L 8.350 (H) 0.129 (L) Thyroglobulin Ab, Serum <4.0 IU/mL <0.9 Thyroglobulin, Serum 1.6 - 50.0 ng/mL 2.1 (H): Data is abnormally high (L): Data is abnormally low Latest Reference Range & Units 04/01/23 13:58 [...] No ALLERGIES Allergen Reactions Clindamycin Rash MEDICATIONS: simvastatin (ZOCOR) 20 mg tablet Take 20 mg by mouth daily at bedtime. levothyroxine (SYNTHROID) 137 mcg tablet Take 1 tablet by mouth daily before breakfast. PAST MEDICAL HISTORY Diagnosis Date DVT (deep venous thrombosis) (HCC) RLE Prior radiation therapy, collagen vascular disease, or inflammatory bowel disease: No PAST SURGICAL HISTORY Procedure Laterality Date THYROIDECTOMY FAMILY HISTORY Problem Relation Age of Onset Cancer Father Colon Cancer Sister Social History Tobacco Use Smoking status: Former Current packs/day: 0.00 Average packs/day: 0.5 packs/day for 5.0 years (2.5 ttl pk-yrs) Types: Cigarettes Start date: 1977 Quit date: 1982 Years since quittin.2 Smokeless tobacco: Never Substance Use Topics Alcohol [...] noted in HPI PHYSICAL EXAM: VS: BP 150/81 Pulse 78 Temp 36.7 C (98.1 F) Resp 18 Wt 86.3 kg (190 lb 4.1 oz) SpO2 97% BMI 31.18 kg/m KPS: 100 General Appearance: Alert and [...] on 06/03/2023, 74.3 mCi. Doing well. Thyroglobulin continues to decrease. Doing well on current thyroid replacement dose. Plan to hold dose at current level recheck in 6 months. Signed by: Azam Guillermo MD cc: Gael Thomas [address] [place] [phone] Joey Rand MD [address] [place] [phone] documented in this encounter [facility] 10-13-2024 Note HNO ID: [id number] Author: Azam GUILLERMO MD Service: ? Author Type: Physician Type: Progress Notes Filed: 10/13/2024 09:44 Note Text: Radiation Oncology -follow-up note PATIENT [...] ablative therapy on 06/03/2023, 74.3 mCi. HPI: Doing well denies problems. RADIOLOGY: Post I-131 whole-body scan 06/10/2023: Uptake within an area of thyroid bed only. No suspected metastatic disease. LABORATORY: Latest Reference Range AND Units 07/04/24 08:54 Pre- thyrogen 07/08/24 10:01 Post- thyrogen 10/06/24 09:01 (Spot) Thyroglobulin, LC-MS/MS 1.3 - 31.8 ng/mL 2.5 4.4 T4 5.5 - 10.2 ug/dL 7.4 8.7 TSH 0.270 - 4.200 mIU/L 8.350 (H) 0.129 (L) Thyroglobulin Ab, Serum <4.0 IU/mL <0.9 Thyroglobulin, Serum 1.6 - 50.0 ng/mL 2.1 (H): Data is abnormally high (L): Data is abnormally low Latest Reference Range AND Units 04/01/23 13:58 [...] No ALLERGIES Allergen Reactions Clindamycin Rash MEDICATIONS: simvastatin (ZOCOR) 20 mg tablet Take 20 mg by mouth daily at bedtime. levothyroxine (SYNTHROID) 137 mcg tablet Take 1 tablet by mouth daily before breakfast. PAST MEDICAL HISTORY Diagnosis Date DVT (deep venous thrombosis) (HCC) RLE Prior radiation therapy, collagen vascular disease, or inflammatory bowel disease: No PAST SURGICAL HISTORY Procedure Laterality Date THYROIDECTOMY FAMILY HISTORY Problem Relation Age of Onset Cancer Father Colon Cancer Sister Social History Tobacco Use Smoking status: Former Current packs/day: 0.00 Average packs/day: 0.5 packs/day for 5.0 years (2.5 ttl pk-yrs) Types: Cigarettes Start date: 1977 Quit date: 1982 Years since quittin.2 Smokeless tobacco: Never Substance Use Topics Alcohol [...] noted in HPI PHYSICAL EXAM: VS: BP 150/81 Pulse 78 Temp 36.7 ?C (98.1 ?F) Resp 18 Wt 86.3 kg (190 lb 4.1 oz) SpO2 97% BMI 31.18 kg/m? KPS: 100 General Appearance: Alert and [...] on 06/03/2023, 74.3 mCi. Doing well. Thyroglobulin continues to decrease. Doing well on current thyroid replacement dose. Plan to hold dose at current level recheck in 6 months. Signed by: Azam Guillermo MD cc: Gael Thomas [address] [place] [phone] Joey Rand MD [address] [place] [phone] [facility] 09-09-2024 Telephone encounter Note Left message for pt to call office. [facility] 09-09-2024 Miscellaneous Notes Left message for pt to call office. Did Dr Thomas change or refill his synthroid? Pt called in. He had his lab work done a couple of weeks ago at [facility] and then saw Dr Thomas to go over the results. Called him and left message. I will try again. Was this done? Labs abnormal. New dose of synthroid sent in. F/U with a TSH in 6 weeks documented in this encounter [facility] 09-09-2024 Telephone encounter Note [address] Dr Thomas change or refill his synthroid? [facility] 09-09-2024 Telephone encounter Note Pt called in. He had his lab work done a couple of weeks ago at [facility] and then saw Dr Thomas to go over the results. [facility] 09-09-2024 Telephone encounter Note Called him and left message. I will try again. [facility] 09-09-2024 Telephone encounter Note Was this done? [facility] 09-05-2024 Note DEPARTMENT OF VASCUL AR SURGERY HPI Arvind Rm is a 69 y.o. male who presents today for follow up for CVI and post thrombotic syndrome. He has history of provoked extensive RLE DVT in April 2023 and has known chronic clots to the right leg. He does have continued edema but denies any other sympoms associated with this- no heaviness, aching, burning, cellulitis, dermatitis, ulceration. 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 HENT: Negative for congestion, dental problem, drooling, ear discharge, ear pain, facial swelling, hearing loss, mouth sores, nosebleeds, postnasal drip, rhinorrhea, sinus pressure, sinus pain, sneezing, sore throat, tinnitus, trouble swallowing and voice change. Eyes: Negative for photophobia, pain, discharge, redness, itching and visual disturbance. Respiratory: Negative for apnea, cough, choking, chest tightness, shortness of breath, wheezing and stridor. Cardiovascular: Negative for chest pain, palpitations and leg swelling. Gastrointestinal: Negative for abdominal distention, abdominal pain, anal bleeding, blood in stool, constipation, diarrhea, nausea, rectal pain and vomiting. Endocrine: Negative for cold intolerance, heat intolerance, polydipsia, polyphagia and polyuria. Genitourinary: Negative for decreased urine volume, difficulty urinating, dysuria, enuresis, flank pain, frequency, genital sores, hematuria, penile discharge, penile pain, penile swelling, scrotal swelling, testicular pain and urgency. Musculoskeletal: Negative for arthralgias, back pain, gait problem, joint swelling, myalgias and neck pain. Skin: Negative for color change, pallor, rash and wound. Allergic/Immunologic: Negative for environmental allergies, food allergies and immunocompromised state. Neurological: Negative for dizziness, tremors, seizures, syncope, facial asymmetry, speech difficulty, weakness, light-headedness, numbness and headaches. Hematological: Negative for adenopathy. Does not bruise/bleed easily. Psychiatric/Behavioral: Negative for agitation, behavioral problems, confusion, decreased concentration, dysphoric mood, hallucinations, self-injury, sleep disturbance and suicidal ideas. The patient is not nervous/anxious and is not hyperactive. Past Medical History: Past Medical History: Diagnosis Date DVT of leg (deep venous thrombosis) ([facility]) 03/19/2023 RLE Objective Visit Vitals Smoking Status Never Physical Exam Constitutional: General: He is not [...] Neck supple. Right lower leg: Edema present. Left lower leg: Edema present. Comments: RLE >>LLE. NO ulceration, dermatitis Skin: General: Skin is warm and dry. Neurological: General: No focal deficit present. Mental Status: He is alert and oriented to person, place, and time. Psychiatric: Mood and Affect: Mood normal. Behavior: Behavior normal. Thought Content: Thought content normal. Judgment: Judgment normal. Imaging Reviewed: Vascular US lower extremity venous insufficiency bilateral Reflux) 09/05/2024 IMPRESSION: Right: Non-dilated partially compressible femoral and popliteal veins with hyperechoic intraluminal content and phasic spectral Doppler signals; consistent with chronic deep vein thrombosis. Significant deep reflux great than 1000ms noted in femoral. Significant saphenofemoral junction plus multilevel great saphenous reflux greater than 500ms. Left: No evidence of acute deep or superficial vein thrombosis of the left lower extremity. No significant deep vein reflux noted. Significant saphenofemoral junction plus multilevel great saphenous reflux greater than 500ms. Assessment and Plan: Diagnoses and all orders for this visit: Chronic deep vein thrombosis (DVT) of other vein of right lower extremity ([facility]) Venous insufficiency (chronic) (peripheral) -Patient does have deep and superficial reflux of the right leg and gsv reflux on the left. He has no symptoms related to this at this time other than swelling which has been controlled with compression stockings. He would like to follow up with us PRN. Discussed reasons to return including worsening edema, heaviness, aching, cellulitis, dermatitis, symp (more content not included)... [facility] 08-23-2024 Telephone encounter Note Labs abnormal. New dose of synthroid sent in. F/U with a TSH in [address] [facility] 08-18-[address] Guillermo please sign pended orders. Sherie Reich RN [facility] 08-18-[address] Guillermo please sign pended orders. Sherie Reich RN Arvind is scheduled for his labs on 10/06/24 at 9:00AM and his follow up with Dr Guillermo on 10/13/24at 9:15AM Valeria Ellington PSS I notified Arvind that per [facility] lab client services states there's still [...] Sherie Reich RN documented in this encounter [facility] 08-18-2024 Telephone encounter Note Arvind is scheduled for his labs on 10/06/24 at 9:00AM and his follow up with Dr Guillermo on 10/13/24at 9:15AM Valeria Ellington PSS [facility] 08-17-2024 Telephone encounter Note I notified Arvind that per [facility] lab client services states there's still [...] and new prescription. Thanks Sherie Reich RN [facility] 07-19-2024 Telephone encounter Note Pt called in, he wants to know if you can refill omeprazole? His pharmacy is [facility] in [place]. [facility] 07-19-2024 Miscellaneous Notes Pt called in, he wants to know if you can refill omeprazole? His pharmacy is [facility] in [place]. documented in this encounter [facility] 07-18-2024 Telephone encounter Note Appointment canceled Valeria Ellington PSS [facility] 07-18-2024 Miscellaneous Notes Appointment canceled Valeria Ellington [...] I called and spoke with Jd at [facility] lab client services. I asked if [...] Sherie Reich RN documented in this encounter [facility] 07-18-2024 Telephone encounter Note Call placed to pt to notify pt that results are not back yet. LM requesting pt CB to notify us that he did receive this message. PSS- please cancel follow up this am. Aurea Chu RN [facility] 07-15-2024 Telephone encounter Note I update Arvind and his of the pending thyroglobulin results. I told them nursing would call him 07/18/24 a.m. to notify him if he should keep his follow up scheduled at 9:00 or if we need to reschedule. They are both thankful for the call and explanation. Sherie Reich RN [facility] 07-15-2024 Telephone encounter Note I called and spoke with Jd at [facility] lab client services. I asked if [...] with the reflex orders. Sherie Reich RN [facility] 07-05-2024 Note HNO ID: [id number] Author: SHERIE REICH RN Service: ? Author Type: Registered Nurse Type: Progress Notes Filed: 07/05/2024 09:50 Note Text: Patient reminded of lab appointment 07/08/24. Sherie Reich RN [facility] 07-05-2024 History of Presen t illness Narrative Patient reminded of lab appointment 07/08/24. Sherie Reich RN documented in this encounter [facility] 06-28-2024 Telephone encounter Note Pharmacist: Will you please enter Thyrogen orders and route to Dr. Guillermo. Patient is scheduled 07/04 and 07/05. Thanks Sherie Reich RN [facility] 06-28-2024 Miscellaneous Notes Pharmacist: Will you please enter Thyrogen orders and route to Dr. Guillermo. Patient is scheduled 07/04 and 07/05. Thanks Sherie Reich RN documented in this encounter [facility] 01-19-2024 History of Presen t illness Narrative [...] by: Azam Guillermo MD cc: Gael Thomas [address] [place] [phone] Joey Rand MD [address] [facility] [address] [place] [address] documented in this encounter [facility] 10-05-2023 Miscellaneous Notes Please review and sign if agreeable. Aurea Chu, RN documented in this encounter [facility] 08-27-2023 History of Presen t illness Narrative [...] by: Azam Guillermo MD cc: Gael Thomas [address] [place] [phone] Joey Rand MD [address] [facility] [address] [facility] [address] documented in this encounter [facility] 06-17-2023 History of Presen t illness Narrative [...] Azam Guillermo MD cc: Gael Thomas [address] [place] [address] Joey Rand MD [address] [place] [phone] documented in this encounter [facility] 06-03-2023 History of Presen t illness Narrative PATIENT NAME: Arvind Rm PATIENT : 1955 See note at [facility] documented in this encounter [facility] 04-28-2023 History and physical note Note Date/Time April 28, 2023 8: 05am [facility] [address] [place] [address] Gastroenterology H&P Signed Patient: Arvind Rm MR#: [id number] : 1955 Acct:[id number] Age/Sex: 68 / M Adm Date: 3 Loc: Room: Type: [facility] Attending Dr: Modesto Guzmán MD Copies [...] <Electronically signed by Modesto Guzmán MD> 04/28/23[address] [facility] Work Phone: 1(447) 967-473010-03-2023 [facility]* Sherie Reich LPN - 04/01/2023 [...] assist. Sherie Reich LPN [facility] History of Present illness Narrative* Azam Guillermo [...] Azam Guillermo MD cc: Gael Dawson Josiane [address] [place] [phone] Joey Rand MD [address] [place] [phone] [facility]-2023 NoteOPERATIVE NOTE OPERATION DATE: 11/05/2022 PREOPERATIVE DIAGNOSIS: [...] within one year. CC: Gael Thomas M.D.[facility] [id number] NoteChief Complaint consultation for screening colonoscopy HPI [...] inactivated - Not Given Patient Refuses SARSCoV2 mRNA(ofwzceloo-nocz-ozvczt) vac 03/24/2022 Recorded SARSCoV2 mRNA(myqpzswct-imnq-ujnzbv) vac 10/16/2021 Recorded SARS-CoV-2 (COVID-19) mRNA BNT-162b2 vax 04/17/2021 Recorded SARS-CoV-2 (COVID-19) mRNA BNT-162b2 vax 03/27/2021 [facility]edMet[facility] CenterComment on above:Result Comment: Electronically Signed By: DAVIDA CHIN, Violeta Vallecillo\Date and Time Signed: 10/22/22 16:00 EDTEvaluation + Plan note No data available for this section [facility] Evaluation note* Diagnosis Thyroid cancer (HCC)- Primary Malignant neoplasm of thyroid gland documented in this encounter [facility] note* Diagnosis Thyroid cancer (HCC)- Primary Malignant neoplasm of thyroid gland documented in this encounter [facility] noteNo InformationNort [employer] Other Evaluation noteNo assessment information available [facility] Work Phone: Evaluation note* Diagnosis Thyroid cancer (HCC)- Primary Malignant neoplasm of thyroid gland documented in this encounter [facility] note* Diagnosis Thyroid cancer (HCC)- Primary Malignant neoplasm of thyroid gland documented in this encounter [facility] note* Diagnosis Thyroid cancer (HCC)- Primary Malignant neoplasm of thyroid gland documented in this encounter [facility] note* Diagnosis Thyroid cancer (HCC)- Primary Malignant neoplasm of thyroid gland [facility] Thyroid cancer (HCC)- Primary Malignant neoplasm of thyroid gland [facility] Diagnosis Thyroid cancer (HCC)- Primary Malignant neoplasm of thyroid gland [facility] Diagnosis Thyroid cancer (HCC)- Primary Malignant neoplasm of thyroid gland [facility] Diagnosis Thyroid cancer (HCC)- Primary Malignant neoplasm of thyroid gland [facility]* Diagnosis Thyroid cancer (HCC)- Primary Malignant neoplasm of thyroid gland [facility]* Diagnosis LPRD (laryngopharyngeal reflux disease)- Primary Acute laryngitis, without mention of obstruction [facility] Diagnosis Thyroid cancer (HCC)- Primary Malignant neoplasm of thyroid gland [facility]* Diagnosis Postoperative hypothyroidism (CMS/HCC)- Primary Postsurgical hypothyroidism [facility] Diagnosis Thyroid cancer (HCC)- Primary Malignant neoplasm of thyroid gland [facility]* Diagnosis LPRD (laryngopharyngeal reflux disease) Acute laryngitis, without mention of obstruction documented in this encounter [facility] general Narrative - Reported* Type Description Date Surgical History thyroidectomy [employer] Other Hospital Discharge instructions No data available for this section [facility] Discharge instructions Additional Instructions DISCHARGE INSTRUCTIONS [...] years. -Follow up with PCP. -Office number [phone]. [facility] Work Phone: Progress note No data available for this section [facility] Reason for referral (narrative)* Diagnostic Procedure Only (Routine) - Pending Review Specialty Diagnoses / Procedures Referred By Amalia colon Referred To Contact MOLECULAR & FUNCTIONAL IMAGING Diagnoses Thyroid cancer (HCC) Procedures NM THERAPY THYROID I-131 RP THERAPY ORAL ADMINISTRATION Azam Guillermo MD [address] [place] [address] [place] [address] Molecular & Functional Imaging [address] [place] [address] Referral ID Status Reason Start Date Expiration Date Visits Requested Visits Authorized [id number] Pending Review Auto-Generat ed Referral 04/01/2023 04/30/2024 1 1 [facility] Summary Purpose Family History No Family History [...] team informatio n (unrecognized section and content) Hospice Consultant Relationship Specialty Start Date End Date Gael Thomas MD [address] [place] [address] PCP - General Family Medicine 04/01/23 Hospice Consultant Relationship Specialty Start Date End Date Gael Thomas MD [address] [place] [address] PCP - General Family Medicine 04/01/23 Hospice Consultant Relationship Specialty Start Date End Date Gael Thomas MD [address] [place] [phone] PCP - General Family Medicine 04/01/23 Team Status: Active Member Role Status Dates Gael Thomas MD Primary Care Provider Active Team Status: Inactive Member Role Status Dates Modesto Guzmán MD Attending Provider Active Gael Thomas MD Primary Care Provider Active Hospice Consultant Relationship Specialty Start Date End Date Gael Thomas MD [address] [place] [address] PCP - General Family Medicine 04/01/23 Hospice Consultant Relationship Specialty Start Date End Date Gael Thomas MD [address] [place] [address] PCP - General Family Medicine 04/01/23 Team Status: Inactive Member Role Status Vitaly Guillermo MD Attending Provider Active Gael Thomas MD Primary Care Provider Active Hospice Consultant Relationship Specialty Start Date End Date Gael Thomas MD [address] [place] [phone] PCP - General Family Medicine 04/01/23 Hospice Consultant Relationship Specialty Start Date End Date Gael Thomas MD [address] [place] [phone] PCP - General Family Medicine 04/01/23 Hospice Consultant Relationship Specialty Start Date End Date Gael Thomas MD [address] [place] [address] PCP - General Family Medicine 04/01/23 Hospice Consultant Relationship Specialty Start Date End Date Gael Thomas MD [address] [place] [phone] PCP - General Family Medicine 04/01/23 Hospice Consultant Relationship Specialty Start Date End Date Gael Thomas MD [address] [place] [address] PCP - General Family Medicine 04/01/23 Hospice Consultant Relationship Specialty Start Date End Date Gael Thomas MD [address] [facility] [place] [address] PCP - General Family Medicine 04/01/23 Hospice Consultant Relationship Specialty Start Date End Date Gael Thomas MD [address] [facility] [place] [address] PCP - General Family Medicine 04/01/23 Hospice Consultant Relationship Specialty Start Date End Date Gael Thomas MD [address] [facility] [place] [address] PCP - General Family Medicine 04/01/23 Hospice Consultant Relationship Specialty Start Date End Date Gael Thomas MD [address] [place] [facility] [place] [address] PCP - General Family Medicine 04/01/23 Hospice Consultant Relationship Specialty Start Date End Date Gael Thomas MD [address] [facility] [place] [address] PCP - General Family Medicine 12/28/22 Hospice Consultant Relationship Specialty Start Date End Date Gael Thomas MD [address] [place] [facility] [place] [address] PCP - General Family Medicine 04/01/23 Hospice Consultant Relationship Specialty Start Date End Date Gael Thomas MD [address] [facility] [place] [address] PCP - General Family Medicine 12/28/22 Hospice Consultant Relationship Specialty Start Date End Date Gael Thomas MD [address] [facility] [place] [address] PCP - General Family Medicine 12/28/22 Hospice Consultant Relationship Specialty Start Date End Date Gael Thomas MD [address] [place] [address] PCP - General Family Medicine 04/01/23 Hospice Consultant Relationship Specialty Start Date End Date Gael Thomas MD [address] [facility] [place] [address] PCP - General Family Medicine 12/28/22 (unrecognized sect ion and content) No Status Records FoundNo Status Records FoundNo Status Records FoundNo Status Records FoundNo Status Records FoundNo Status Records Found INFORMATION SOURCE (unrecogn ized section and content) DATE CREATED AUTHOR 11/15/2022 [facility] DATE CREATED AUTHOR AUTHOR'S ORGANIZ ATION 01/29/2023 [facility] DATE CREATED AUTHOR AUTHOR'S ORGANIZ ATION 08/08/2023 [facility] DATE CREATED AUTHOR AUTHOR'S ORGANIZ ATION 11/19/2023 [facility] DATE CREATED AUTHOR AUTHOR'S ORGANIZ ATION 09/11/2024 [facility] DATE CREATED AUTHOR AUTHOR'S ORGANIZ ATION 04/15/2025 [facility] Source Comments (unrecognize d section and content) In the event this informatio n is protected by the Federal Confidentiality of Alcohol and Drug Abuse Patient Records regulations: The Federal rules restrict any use of the information to criminally investigate or prosecute any alcohol or drug abuse patient.Prem[facility] HealthIn the event this information is protected by the Federal Confidentiality of Alcohol and Drug Abuse Patient Records regulations: The Federal rules restrict any use of the information to criminally investigate or prosecute any alcohol or drug abuse patient.Premier HealthIn the event this information is protected by the Federal Confidentiality of Alcohol and Drug Abuse Patient Records regulations: The Federal rules restrict any use of the information to criminally investigate or prosecute any alcohol or drug abuse patient.Premier HealthIn the event this information is protected by the Federal Confidentiality of Alcohol and Drug Abuse Patient Records regulations: The Federal rules restrict any use of the information to criminally investigate or prosecute any alcohol or drug abuse patient.Premier HealthIn the event this information is protected by the Federal Confidentiality of Alcohol and Drug Abuse Patient Records regulations: The Federal rules restrict any use of the information to criminally investigate or prosecute any alcohol or drug abuse patient.Premier HealthIn the event this information is protected by the Federal Confidentiality of Alcohol and Drug Abuse Patient Records regulations: The Federal rules restrict any use of the information to criminally investigate or prosecute any alcohol or drug abuse patient.Premier HealthIn the event this information is protected by the Federal Confidentiality of Alcohol and Drug Abuse Patient Records regulations: The Federal rules restrict any use of the information to criminally investigate or prosecute any alcohol or drug abuse patient.Premier HealthIn the event this information is protected by the Federal Confidentiality of Alcohol and Drug Abuse Patient Records regulations: The Federal rules restrict any use of the information to criminally investigate or prosecute any alcohol or drug abuse patient.Premier HealthIn the event this information is protected by the Federal Confidentiality of Alcohol and Drug Abuse Patient Records regulations: The Federal rules restrict any use of the information to criminally investigate or prosecute any alcohol or drug abuse patient.Premier HealthIn the event this information is protected by the Federal Confidentiality of Alcohol and Drug Abuse Patient Records regulations: The Federal rules restrict any use of the information to criminally investigate or prosecute any alcohol or drug abuse patient.Premier HealthIn the event this information is protected by the Federal Confidentiality of Alcohol and Drug Abuse Patient Records regulations: The Federal rules restrict any use of the information to criminally investigate or prosecute any alcohol or drug abuse patient.Premier HealthIn the event this information is protected by the Federal Confidentiality of Alcohol and Drug Abuse Patient Records regulations: The Federal rules restrict any use of the information to criminally investigate or prosecute any alcohol or drug abuse patient.Premier HealthIn the event this information is protected by the Federal Confidentiality of Alcohol and Drug Abuse Patient Records regulations: The Federal rules restrict any use of the information to criminally investigate or prosecute any alcohol or drug abuse patient.Premier HealthIn the event this information is protected by the Federal Confidentiality of Alcohol and Drug Abuse Patient Records regulations: The Federal rules restrict any use of the information to criminally investigate or prosecute any alcohol or drug abuse patient.Premier HealthIn the event this information is protected by the Federal Confidentiality of Alcohol and Drug Abuse Patient Records regulations: The Federal rules restrict any use of the information to criminally investigate or prosecute any alcohol or drug abuse patient.Premier HealthIn the event this information is protected by the Federal Confidentiality of Alcohol and Drug Abuse Patient Records regulations: The Federal rules restrict any use of the information to criminally investigate or prosecute any alcohol or drug abuse patient.Premier HealthIn the event this information is protected by the Federal Confidentiality of Alcohol and Drug Abuse Patient Records regulations: The Federal rules restrict any use of the information to criminally investigate or prosecute any alcohol or drug abuse patient.Premier HealthIn the event this information is protected by the Federal Confidentiality of Alcohol and Drug Abuse Patient Records regulations: The Federal rules restrict any use of the information to criminally investigate or prosecute any alcohol or drug abuse patient.Premier HealthIn the event this information is protected by the Federal Confidentiality of Alcohol and Drug Abuse Patient Records regulations: The Federal rules restrict any use of the information to criminally investigate or prosecute any alcohol or drug abuse patient.Premier HealthIn the event this information is protected by the Federal Confidentiality of Alcohol and Drug Abuse Patient Records regulations: The Federal rules restrict any use of the information to criminally investigate or prosecute any alcohol or drug abuse patient.Premier HealthIn the event this information is protected by the Federal Confidentiality of Alcohol and Drug Abuse Patient Records regulations: The Federal rules restrict any use of the information to criminally investigate or prosecute any alcohol or drug abuse patient.Premier HealthIn the event this information is protected by the Federal Confidentiality of Alcohol and Drug Abuse Patient Records regulations: The Federal rules restrict any use of the information to criminally investigate or prosecute any alcohol or drug abuse patient.Premier HealthIn the event this information is protected by the Federal Confidentiality of Alcohol and Drug Abuse Patient Records regulations: The Federal rules restrict any use of the information to criminally investigate or prosecute any alcohol or drug abuse patient.Premier HealthIn the event this information is protected by the Federal Confidentiality of Alcohol and Drug Abuse Patient Records regulations: The Federal rules restrict any use of the information to criminally investigate or prosecute any alcohol or drug abuse patient.Premier HealthIn the event this information is protected by the Federal Confidentiality of Alcohol and Drug Abuse Patient Records regulations: The Federal rules restrict any use of the information to criminally investigate or prosecute any alcohol or drug abuse patient.Premier HealthIn the event this information is protected by the Federal Confidentiality of Alcohol and Drug Abuse Patient Records regulations: The Federal rules restrict any use of the information to criminally investigate or prosecute any alcohol or drug abuse patient.[facility] Reason for Visit (unrecogniz ed section and content) Reason Comments Consult Reason Onset Date Comments Refill Request 05/08/2023 Reason Comments Thyroid Cancer Specialty Diagnoses / Procedures Referred By Contac t Referred To Contact Diagnoses Thyroid cancer (HCC) Procedures THYROTROPIN INJECTION Azam Guillermo MD [address] [address] [facility] [address] [address] Referral ID Status Reason Start Date Expiration Date V isits Requested Visits Authorized [id number] Authorized 04/02/2023 07/26/2023 99 99 Reason Comments Prostate Cancer Reason Comments Med Change Request Reason Onset Date Comments Refill Request 10/05/2023 Reason Comments Orders Referral ID Status Reason Start Date Expiration Date V isits Requested Visits Authorized [id number] Authorized 06/29/2024 07/26/2024 99 99 Reason Onset Date Comments Refill Request 07/22/2024 Reason Comments Appointment Patient Update Reason Comments Med Refill FOR RECORDS PERTAINING TO PATIENTS WHO ARE [...] BE BASED ON THE PRIMARY CLINICAL RECORDS. [employer] provides no warranty or guarantee of the accuracy or completeness of information in this document.
--- NOTE | 2025-05-01 13:06 | CT_ITS ---
The [address] [address] Patient Name: ELIZABETH RM MRN: [id number] date: 1955 Sex: M Assigned Patient Location: CT Current Patient Location: CT Accession/Order Number: [id number] Exam Date: 05/01/2025 13:00 Report Date: 05/01/2025 17:19 At the request of: GAEL JOSHUA MD Procedure: CT soft tissue neck wo con CT soft tissue neck wo con 05/01/2025 1:06 PM SIGNS AND SYMPTOMS: ^Neck mass TECHNIQUE: Multidetector CT axial slices of the soft tissues of the neck were obtained without IV contrast . Sagittal and coronal reformats were reconstructed. CT was performed with one or more of the following dose reduction techniques: Automated exposure control, adjustment of the mA and/or kV according to patient size, or use of iterative reconstruction technique. COMPARISON: Ultrasound 05/06/2023 FINDINGS: Evaluation degraded by lack of intravenous contrast. There are central necrotic/cystic lymph nodes identified left level 2 2.4 x 1.8 cm, left level 3 1.1 x 1.1 cm and left level 3 1.5 x 1.4 cm. There are additional smaller lymph nodes identified within the left neck noted possibly pathologic difficult to evaluate due to lack of contrast. Postsurgical changes status post thyroidectomy. No definite recurrent soft tissue within the thyroidectomy bed, although Evaluation degraded by the artifact from the surgical clips. The nasopharynx, oropharynx, hypopharynx, glottic, and subglottic regions are unremarkable. The parotid glands, submandibular glands are within normal limits. The visualized lung parenchyma shows no acute pathology. No suspicious osseous lesion. CT/CT soft tissue neck wo con IMPRESSION: Centrally necrotic left sided cervical adenopathy. Differential consideration include cystic/necrotic squamous cell metastases versus possible thyroid cancer metastases. Recommend percutaneous sampling with ultrasound. Impression dictated by: Sanket Olivier M.D. 05/01/2025 5:19 PM Dictation Location: [place] [address] Electronically authenticated by: [id number] Date: 05/01/2025 17:19
== END 2025-05-01 12:47 | disposition home or self-care (01) ==
LOC: CT 12:46
PROVIDERS: PCP Family Medicine; Visit Provider Family Medicine
DX: R22.1 Localized swelling, mass and lump, neck (principal)
CPT/HCPCS: 70490